=== PATIENT | male | born 1960 | race Caucasian/White ===

== ENCOUNTER 2024-01-01 10:22 | Outpatient (CLI) | payer OTHER, SELFPAY | END 2024-01-01 10:23 | disposition home or self-care (01) | LOC: INJ CL 10:26 | PROVIDERS: PCP Family Medicine; Visit Provider Family Medicine | DX: M54.16 Radiculopathy, lumbar region (principal); M51.36 Other intervertebral disc degeneration, lumbar region | CPT/HCPCS: 62323; J0702; Q9966 ==

== ENCOUNTER 2024-05-03 16:54 | Emergency (ER) | payer OTHER, SELFPAY ==
[2024-05-03 17:06] VITALS: BP 112/74; PULSE 88; RESP 20; TEMP 36.2; O2SAT 90; BMI 43.0
--- NOTE | 2024-05-03 18:26 | ED_ITS ---
HPI - Skin/Abscess/Foreign Bdy General Date Seen: 05/03/24 Chief complaint: Skin/Abscess/Foreign Body Stated complaint: R leg injury Time Seen by Provider: 05/03/24 17:31 Source: patient, family, RN notes reviewed and old records reviewed Mode of arrival: ambulatory Limitations: no limitations History of Present Illness HPI narrative: Mr. Hickey is a very pleasant 63-year-old gentleman with a history of diabetes both oral medication and insulin controlled, hypertension, peripheral neuropathy who comes to the emergency room for evaluation regarding wound on his right ankle. Mr. Myers states that of month ago he hit the back of his lower leg/Achilles area on the furniture as he was standing up. His has been monitoring it and covering it and today when they took the bandage off there was a distinct rectangular area of erythema that follow the outside of the bandage. He has not been experiencing any fever or chills. He does note that his blood sugars have been going up and this often happens when he has an infection. No history of DVT and he denies calf pain. There has been some light drainage from this wound. It has not been healing. Jokingly, I believe, Mr. Hickey states he lets the dog's licked his wounds. Patient denies a history of MRSA. Related Data Home Medications ?Medication ?Instructions ?Recorded ?Confirmed amitriptyline 10 mg tablet 20 mg PO QPM 06/28/23 08/02/23 amlodipine 10 mg tablet 10 mg PO DAILY 06/28/23 05/03/24 duloxetine 60 mg capsule,delayed 60 mg PO DAILY 06/28/23 05/03/24 release finasteride 5 mg tablet 5 mg PO 06/28/23 08/02/23 gabapentin 100 mg capsule mg PO 06/28/23 08/02/23 gabapentin 300 mg capsule 300 mg PO 06/28/23 08/02/23 insulin aspart 8 unit subcut BID 06/28/23 05/03/24 (niacinamide)(U-100) 100 unit/mL(3 mL) subcutaneous pen (Fiasp FlexTouch U-100 Insulin) insulin glargine 100 unit/mL (3 unit subcut 06/28/23 08/02/23 mL) subcutaneous pen (Lantus Solostar U-100 Insulin) lisinopril 10 1 tab PO DAILY 06/28/23 05/03/24 mg-hydrochlorothiazide 12.5 mg tablet meloxicam 7.5 mg tablet 7.5 mg PO DAILY 06/28/23 05/03/24 metformin 500 mg tablet 1,000 mg PO BID 06/28/23 05/03/24 methocarbamol 750 mg tablet 750 mg PO BID 06/28/23 05/03/24 oxycodone 5 mg tablet 5 mg PO 06/28/23 08/02/23 pen needle, diabetic 31 gauge x #1,200 ea 06/28/23 08/02/23 5/16 (UltiCare Pen Needle) rosuvastatin 5 mg tablet 5 mg PO DAILY 06/28/23 05/03/24 carvedilol 25 mg tablet 50 mg PO BID 05/03/24 05/03/24 furosemide 20 mg tablet 20 mg PO QAM 05/03/24 05/03/24 tamsulosin 0.4 mg capsule 0.4 mg PO DAILY 05/03/24 05/03/24 Allergies Allergy/AdvReac Type Severity Reaction Status Date / Time No Known Drug Allergies Allergy Verified 01/01/24 10:57 Review of Systems Status of ROS: Reports: 6 or more systems reviewed and unremarkable except as noted in History and below Exam Narrative: Exam Narrative: Patient is alert and oriented. No acute distress. No tachypnea. Examination of the lower extremities show bilateral 1+ edema. Multiple areas of scarring scabs in various stages of healing noted. On the back of the right leg at the lower aspect of the Achilles is a nickel shaped area of increased erythema with central losing measuring approximately 4 mm. There is some erythema at reporting developer extending from this and a perfectly shaped rectangle outline with obvious deep erythema. No this is not significantly warm to the touch. There is no calf tenderness. Const: Vital Signs, click to edit/add: Vital Signs - 24 hr 05/03/24 17:06 Temperature 97.2 F L Pulse Rate [Right Pulse Oximeter] 88 Respiratory Rate 20 Blood Pressure [Ri ght Upper Arm] 112/74 Pulse Oximetry 90 Oxygen Delivery Me thod Room Air Documenting provider has reviewed patient's vital signs: yes Course Course ED Course: This time patient appears to have a mild cellulitis with surrounding area of irritation from the bandage. Will obtain wound culture. Vital Signs Vital signs: Initial Vital Signs Temperature 97.2 F L 05/03/24 17:06 Temperature Source Temporal Artery Scan 05/03/24 17:06 Pulse Rate 88 05/03/24 17:06 Respiratory Rate 20 05/03/24 17:06 Blood Pressure 112/74 05/03/24 17:06 Blood Pressure Mean 86 05/03/24 17:06 Blood Pressure Position Sitting 05/03/24 17:06 Pulse Oximetry 90 05/03/24 17:06 Oxygen Delivery Method Room Air 05/03/24 17:06 Vital Signs Temperature 97.2 F L 05/03/24 17:06 Pulse Rate 88 05/03/24 17:06 Respiratory Rate 20 05/03/24 17:06 Blood Pressure 112/74 05/03/24 17:06 Pulse Oximetry 90 05/03/24 17:06 Oxygen Delivery Method Room Air 05/03/24 17:06 Temperature 97.2 F L 05/03/24 17:06 Pulse Rate 88 05/03/24 17:06 Respiratory Rate 20 05/03/24 17:06 Blood Pressure 112/74 05/03/24 17:06 Pulse Oximetry 90 05/03/24 17:06 Oxygen Delivery Method Room Air 05/03/24 17:06 MDM - Skin/Abscess/Foreign Bdy MDM Narrative Medical decision making narrative: 1. Cellulitis-this is a poorly healing wound for the past month. I do see increased erythema. I would recommend treatment with an antibiotic. We will use doxycycline 100 mg p.o. b.i.d. x7 days while we are awaiting the culture. Recommend seeking medical attention for fever, vomiting, any worsening symptoms. 2. Contact dermatitis-she clearly we have the perfect outline of the edge of the bandage. At this time recommend against used of any adhesive. We will use Kerlix and Coban to hold it in place. I think this occurred because the skin is so much more sensitive with the ongoing infection. 3. Hyper glycemia-per patient report. His blood sugar has been in the 200s. He may need to increase his p.r.n. or immediate release insulin. He states he has a follow-up appointment on SundayMay 05 with his primary. 4. Disposition-home at this time. Return for worsening symptoms especially fever, vomiting, increasing redness and as needed. Medical Records Attestation: I reviewed the patient's medical records. Discharge Plan Discharge Clinical Impression: Cellulitis, Contact dermatitis Patient Disposition: Home, Self-Care Condition: Unchanged Additional Instructions: Avoid any adhesive on the skin. Cover with telfa and wrapping with gauze or kerlix to hold in place may be helpful. Keep this area clean. Monitor for worsening symptoms. Seek medical attention for fever, vomiting or increase in redness and as needed. Doxycycline is an antibiotic and will be used to treat this area. Prescriptions: No Action metformin 500 mg tablet 1,000 mg PO BID methocarbamol 750 mg tablet 750 mg PO BID duloxetine 60 mg capsule,delayed release(DR/EC) 60 mg PO DAILY oxycodone 5 mg tablet 5 mg PO amitriptyline 10 mg tablet 20 mg PO QPM Fiasp FlexTouch U-100 Insulin 100 unit/mL (3 mL) insulin pen 8 unit subcut BID insulin glargine [Lantus Solostar U-100 Insulin] 100 unit/mL (3 mL) insulin pen subcut lisinopril-hydrochlorothiazide 10-12.5 mg tablet 1 tab PO DAILY finasteride 5 mg tablet 5 mg PO amlodipine 10 mg tablet 10 mg PO DAILY (DME) pen needle, diabetic [UltiCare Pen Needle] 31 gauge x 5/16 needle See Rx Instructions .ROUTE DIRECTED Qty: 1200 Rx Instructions: As directed gabapentin 300 mg capsule 300 mg PO rosuvastatin 5 mg tablet 5 mg PO DAILY gabapentin 100 mg capsule PO meloxicam 7.5 mg tablet 7.5 mg PO DAILY carvedilol 25 mg tablet 50 mg PO BID furosemide 20 mg tablet 20 mg PO QAM tamsulosin 0.4 mg capsule 0.4 mg PO DAILY Follow Up/Referrals: Caryl Shi DO [Primary Care Provider] - Stand Alone [facility] Inst[facility]
== END 2024-05-03 17:52 | disposition home or self-care (01) ==
LOC: ED 17:39
PROVIDERS: Emergency Provider Family Medicine; PCP Family Medicine
DX: L03.115 Cellulitis of right lower limb (principal); L24.5 Irritant contact dermatitis due to other chemical products; W22.8XXA Striking against or struck by other objects, initial encounter
CPT/HCPCS: 87070; 87186; 99283

== ENCOUNTER 2024-05-19 02:26 | Emergency (ER) | payer OTHER, SELFPAY ==
[2024-05-19 02:37] VITALS: BP 140/78; PULSE 75; RESP 16; TEMP 35.9; O2SAT 93; BMI 43.0
--- NOTE | 2024-05-19 03:10 | ED_ITS ---
HPI - General Adult General Date Seen: 05/19/24 Chief complaint: Abdominal Pain Stated complaint: Abdominal Pain Time Seen by Provider: 05/19/24 02:45 Source: patient, EMS, RN notes reviewed and old records reviewed Mode of arrival: EMS Limitations: no limitations History of Present Illness HPI narrative: Patient is a 63-year-old male here for abdominal pain, rectal pain and inability to have a bowel movement. He says he takes oxycodone chronically for back pain, he has not been able have a bowel movement for 4 5 days and is having an of rectal pain now that he is not able to sit so he called the ambulance tonight. He also says tonight he has not been able to urinate, he prefers to urinate every hour so and says it has been about 6 hours. He has not had nausea or vomiting. He does complain of his chronic back pain, was given fentanyl in the ambulance but says it has not helped, request additional pain medication. He has not had fevers or bloody stools, did try an enema at home and since then he has had some liquid drainage. Related Data Home Medications ?Medication ?Instructions ?Recorded ?Confirmed amitriptyline 10 mg tablet 20 mg PO QPM 06/28/23 08/02/23 amlodipine 10 mg tablet 10 mg PO DAILY 06/28/23 05/03/24 duloxetine 60 mg capsule,delayed 60 mg PO DAILY 06/28/23 05/03/24 release finasteride 5 mg tablet 5 mg PO 06/28/23 08/02/23 gabapentin 100 mg capsule mg PO 06/28/23 08/02/23 gabapentin 300 mg capsule 300 mg PO 06/28/23 08/02/23 insulin aspart 8 unit subcut BID 06/28/23 05/03/24 (niacinamide)(U-100) 100 unit/mL(3 mL) subcutaneous pen (Fiasp FlexTouch U-100 Insulin) insulin glargine 100 unit/mL (3 unit subcut 06/28/23 08/02/23 mL) subcutaneous pen (Lantus Solostar U-100 Insulin) lisinopril 10 1 tab PO DAILY 06/28/23 05/03/24 mg-hydrochlorothiazide 12.5 mg tablet meloxicam 7.5 mg tablet 7.5 mg PO DAILY 06/28/23 05/03/24 metformin 500 mg tablet 1,000 mg PO BID 06/28/23 05/03/24 methocarbamol 750 mg tablet 750 mg PO BID 06/28/23 05/03/24 oxycodone 5 mg tablet 5 mg PO 06/28/23 08/02/23 pen needle, diabetic 31 gauge x #1,200 ea 06/28/23 08/02/23 5/16 (UltiCare Pen Needle) rosuvastatin 5 mg tablet 5 mg PO DAILY 06/28/23 05/03/24 carvedilol 25 mg tablet 50 mg PO BID 05/03/24 05/03/24 furosemide 20 mg tablet 20 mg PO QAM 05/03/24 05/03/24 tamsulosin 0.4 mg capsule 0.4 mg PO DAILY 05/03/24 05/03/24 Allergies Allergy/AdvReac Type Severity Reaction Status Date / Time No Known Drug Allergies Allergy Verified 01/01/24 10:57 Review of Systems Status of ROS: Reports: 10 or more systems reviewed and unremarkable except as noted in History and below [facility] Social History Non-prescribed substance use: denies use Exam Narrative: Exam Narrative: Vital signs as noted above. In general, an alert, nontoxic elderly male, lying on his left side. He is significantly overweight. Head: Normocephalic, atraumatic. Eyes: Pupils are equal reactive. Extraocular movements are full. Conjunctivae are normal. ENT: Mucous membranes are moist. Neck: Supple without lymphadenopathy. Heart: Regular rate and rhythm. No murmur or rub. Lungs: Clear bilaterally. No increased work of breathing, crackles or wheezes. Abdomen: Obese, soft, nontender. Rectal exam: Impacted stool in the rectum. Extremities: Well perfused. Pulses intact. Neurologic: Patient is alert and oriented to person and place. Speech is fluent. Face is symmetric. Moves all extremities equally. Affect: Normal. Skin: Warm and dry. Well perfused. Const: Vital Signs, click to edit/add: Vital Signs - 24 hr 05/19/24 02:37 Temperature 96.7 F L Pulse Rate [Pulse Oximeter] 75 Respiratory Rate 16 Blood Pressure [Ri ght Upper Arm] 140/78 H Pulse Oximetry 93 Oxygen Delivery Me thod Room Air Documenting provider has reviewed patient's vital signs: yes Course Course ED Course: Will give an additional 4 mg from morphine here, will try pink lady enema, consider disimpaction if that is not successful. Will also straight cath to relieve his urinary retention which is likely related to his fecal impaction. Patient complained of his chronic back pain most consistently while here, requested additional pain medication, was given 4 mg of morphine in said this did not do anything was given additional 4 mg. He does take oxycodone chronically for this. With reference to his fecal impaction, he responded well to an enema here with large stool volume output. He says from that standpoint he is feeling improved. He also had a 1000 mL of urine out of his bladder. His abdominal exam is benign, nontender to palpation. I think it is reasonable to let him go home which is what he would prefer at this time. We talked about increasing his MiraLax to help with continuing to clean out his colon. He understands that the oxycodone is likely the contributing culprit in terms of his constipation. If he has worsening abdominal pain, vomiting, fevers, bloody stools etcetera return any time to the emergency department. He is comfortable with this plan. Vital Signs Vital signs: Initial Vital Signs Temperature 96.7 F L 05/19/24 02:37 Temperature Source Temporal Artery Scan 05/19/24 02:37 Pulse Rate 75 05/19/24 02:37 Respiratory Rate 16 05/19/24 02:37 Blood Pressure 140/78 H 05/19/24 02:37 Blood Pressure Mean 98 05/19/24 02:37 Blood Pressure Position Left Lateral 05/19/24 02:37 Pulse Oximetry 93 05/19/24 02:37 Oxygen Delivery Method Room Air 05/19/24 02:37 Vital Signs Temperature 96.7 F L 05/19/24 02:37 Pulse Rate 75 05/19/24 02:37 Respiratory Rate 16 05/19/24 02:37 Blood Pressure 140/78 H 05/19/24 02:37 Pulse Oximetry 93 05/19/24 02:37 Oxygen Delivery Method Room Air 05/19/24 02:37 Temperature 96.7 F L 05/19/24 02:37 Pulse Rate 75 05/19/24 02:37 Respiratory Rate 16 08/26/24 02:37 Blood Pressure 140/78 H 05/19/24 02:37 Pulse Oximetry 93 05/19/24 02:37 Oxygen Delivery Method Room Air 05/19/24 02:37 Medications Administered Medications: Discontinued Medications Generic Name Dose Route Start Last Admin Trade Name Tay PRN Reason Stop Dose Admin Morphine Sulfate 4 mg 05/19/24 03:05 05/19/24 03:26 Morphine 4 Mg/Ml Inj IVP 05/19/24 03:06 4 mg ONCE ONE Administration Morphine Sulfate 4 mg 05/19/24 04:25 05/19/24 05:17 Morphine 4 Mg/Ml Inj IVP 05/19/24 04:26 4 mg ONCE ONE Administration Non-Formulary Medication 375 each 05/19/24 03:58 05/19/24 04:01 Non-Formulary Medication ID 05/19/24 03:59 375 each ONCE ONE Administration Discharge Plan Discharge Clinical Impression: Fecal impaction Patient Disposition: Home, Self-Care Condition: Improved Instructions: Fecal Impaction (ED) Additional Instructions: I would recommend increasing your MiraLax to a point where you are having bowel movements easily without having diarrhea. If you have worsening abdominal pain, fevers, vomiting, or other significant changes, return any time. See your doctor if not improving over the next few days. Prescriptions: No Action metformin 500 mg tablet 1,000 mg PO BID methocarbamol 750 mg tablet 750 mg PO BID duloxetine 60 mg capsule,delayed release(DR/EC) 60 mg PO DAILY oxycodone 5 mg tablet 5 mg PO amitriptyline 10 mg tablet 20 mg PO QPM Fiasp FlexTouch U-100 Insulin 100 unit/mL (3 mL) insulin pen 8 unit subcut BID insulin glargine [Lantus Solostar U-100 Insulin] 100 unit/mL (3 mL) insulin pen subcut lisinopril-hydrochlorothiazide 10-12.5 mg tablet 1 tab PO DAILY finasteride 5 mg tablet 5 mg PO amlodipine 10 mg tablet 10 mg PO DAILY (DME) pen needle, diabetic [UltiCare Pen Needle] 31 gauge x 5/16 needle See Rx Instructions .ROUTE DIRECTED Qty: 1200 Rx Instructions: As directed gabapentin 300 mg capsule 300 mg PO rosuvastatin 5 mg tablet 5 mg PO DAILY gabapentin 100 mg capsule PO meloxicam 7.5 mg tablet 7.5 mg PO DAILY carvedilol 25 mg tablet 50 mg PO BID furosemide 20 mg tablet 20 mg PO QAM tamsulosin 0.4 mg capsule 0.4 mg PO DAILY Follow Up/Referrals: Caryl Shi DO [Primary Care Provider] - Stand Alone Forms: [facility] Info Instructions
[2024-05-19] MEDS: MORPHINE 4 MG/ML INJ IVP ×2 (03:26→05:17)
[2024-05-19] MEDS: NON-FORMULARY MEDICATION 375 EACH PR (04:01)
--- OUTSIDE RECORDS SUMMARY | 2024-05-19 05:36 | XMS_ITS | Referral Summary ---
Author Organization [facility] Address [address] [place] [address] Care Team Providers Care Yoker Name Role Phone Shar Hoff MD Unavailable [phone] Doctor, No Primary Care Provider Unavailabl e Allergies No known active allergies Medications Medication Sig Dispensed Refills Start Date End Date Status Fish Oil (FISH OIL) 340-1,000 mg oral capsule Take 1,000 mg by mouth once daily. Active multivitamin (CERTAVITE) 18-400 mg-mcg oral tablet Take 1 tablet by mouth once daily. Active omeprazole (PRILOSEC) 20 mg oral delayed release capsule Take 20 mg by mouth once daily. Active amLODIPine (NORVASC) 10 mg oral tablet Take 10 mg by mouth once daily. Active carvedilol (COREG) 25 mg oral tablet Take 25 mg by mouth Twice a Day. Active polyethylene glycol (MIRALAX) 17 gram oral packet Take 17 g by mouth once daily. Mix each dose in 4-8 ounces of liquid as directed. Active Benazepril (LOTENSIN) 40 mg oral tablet Take 40 mg by mouth once daily. Active gabapentin (NEURONTIN) 300 mg oral capsule Take 300 mg by mouth three times a day. Active glipiZIDE (GLUCOTROL XL) 10 mg oral extended release tablet 24 HR Take 10 mg by mouth every morning before breakfast. Active insulin glargine (LANTUS) 100 unit/mL SubQ vial Inject under the skin at bedtime. Active metFORMIN (GLUCOPHAGE) 500 mg oral tablet Take 500 mg by mouth twice a day with breakfast and dinner. Active oxyCODONE, immediate release, (ROXICODONE) 5 mg oral tablet Take 5 mg by mouth every 6 (six) hours as needed. Active spironolactone (ALDACTONE) 50 mg oral tablet Take 50 mg by mouth once daily. Active tamsulosin (FLOMAX) 0.4 mg oral capsule Take 0.4 mg by mouth once daily. Active traZODone (DESYREL) 100 mg oral tablet Take 100 mg by mouth at bedtime as needed for sleep. Active venlafaxine ER (EFFEXOR XR) 150 mg oral extended release capsule 24 HR Take 150 mg by mouth once daily. Active venlafaxine ER (EFFEXOR XR) 75 mg oral extended release capsule 24 HR Take 75 mg by mouth once daily. 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 Social History Tobacco Use Types Packs/Day Years Used Date Smoking Tobacco: Former Smokeless Tobacco: Current Comments:using e- cig Alcohol Use Standard Drinks/Week Comments Yes 0 (1 standard drink = 0.6 oz pur e alcohol) Sex and Gender Information Value Date Recorded Sex Assigned at Not on file Gender Identity Not on file Sexual Orientation Not on file Last Filed Vital Signs Vital Sign Reading Time Taken Comments Blood Pressure 134/95 07/18/2021 4:16 PM CDT Pulse 68 07/18/2021 4:16 PM CDT Temperature 36.2 ??C (97.1 ??F) 07/18/2021 4:00 PM CD T Respiratory Rate 15 07/18/2021 4:16 PM CDT Oxygen Saturation 96% 07/18/2021 4:16 PM CDT Inhaled Oxygen Concentration - - Weight 147.4 kg (325 lb) 07/12/2021 10:57 AM CDT Height 188 cm (6' 2) 07/12/2021 10:57 AM CDT Body Mass Index 41.73 07/12/2021 10:57 AM CDT Plan of Treatment Not on file Procedures Procedure Name Priority Date/Time Associated Diagnosis Comments BASIC METAB PROFILE STAT 07/19/2016 4 :45 AM CDT from Last 3 Months or Most Recently Relevant to Health Maintenance Results * (ABNORMAL) Basic Metabolic Profile (07/19/2016 4:45 AM CDT) Sodium 140 136 - 145 mMol/L 07/19/2016 5:16 AM T [facility] Potassium 4.0 3.5 - 5.1 mMol/L 07/19/2016 5:16 AM [facility] Chloride 104 98 - 112 mMol/L 07/19/2016 5:16 AM [facility] Carbon Dioxide 25 21 - 32 mMol/L 07/19/2016 5:16 AM [facility] BUN (Urea Nitro) 17 7 - 24 mg/dL 07/19/2016 5:16 AM [facility] Creatinine 0.83 0.70 - 1.30 mg/dL 07/19/2016 5:16 AM [facility] Est GFR (CKD-EPI) >60 >60 mL/min 07/19/2016 5:16 AM [facility] EST GFR IF AM >60 >60 mL/min 07/19/2016 5:16 AM [facility] Glucose 99 74 - 106 mg/dL 07/19/2016 5:16 AM [facility] Calcium, Serum 8.4(L) 8.5 - 10.1 mg/dL 07/19/2016 5:16 AM [facility] Anion Gap 11.0 0.0 - 15.0 mMol/L 07/19/2016 5:16 AM [facility] Blood 07/19/2016 4:45 AM CDT 07/19/2016 4:48 AM CDT Brigette Pena MD CHEMISTRY ORDERABLE [facility] [address] [address] from Last 3 Months or Most Recently Relevant to Health Maintenance Advance Directives For more information, please contact: [phone] * Full Code (Latest Code Status on File) Date Activated Date Inactivated Comments 07/19/2016 6:14 AM 07/19/2016 4:02 PM Question Answer Comments How was code status determined? Patient Care Teams Yoker Relationship Specialty Start Date End Date Doctor, No No ad PCP - General Radiology 01/01/23 Shar Hoff MD [address] [place] [address] [address] [place] [address] Neurology 01/01/23
--- OUTSIDE RECORDS SUMMARY | 2024-05-19 05:36 | XMS_ITS | Clinical Summary ---
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 Family History Medical History Relation Comments No Known Problems Father No Known Problems Mother Relation Status Comments Father Mother Social History Tobacco Use Types Packs/Day Years [...] 07/12/2021 10:57 AM CDT Plan of Treatment Health Maintenance Due Date Last Done Comments AAA Ultrasound Screening 1958 Colonoscopy 1960 Eye Exam 1958 Hepatitis C Screening 1958 Depression Assessment (PHQ-2) 1959 Pneumococcal 65+ (1 of 2 - PCV) 1964 RSV 60+ Yrs (1 - 1-dose 60+ series) 2018 HgbA1C 07/14/2021 04/13/2021 Yearly Review of HCD 07/11/2022 07/11/2021, 03/29/2021, 02/02/2021 COVID-19 Vaccine (1 - 2022-2 4 season) 2023 Medicare Wellness Visit 06/28/2023 06/28/2022 Creatinine 04/25/2024 04/25/2023, 08/0 10/2022, 04/22/2022, Additional history exists Influenza Vaccine (#1) 2024 08/04/2003 Adult Tetanus Booster 07/19/2026 07/19/2016, 010 Zoster Vaccine Completed 12/25/2022, 10/23/2022 Procedures Procedure Name Priority Date/Time Associated Diagnosis Comments BASIC METAB PROFILE STAT 07/19/2016 4 :45 AM CDT from Last 3 Months or Most Recently Relevant to Health Maintenance Results * (ABNORMAL) Basic Metabolic Profile (07/19/2016 4:45 AM CDT) Sodium 140 136 - 145 mMol/L 07/19/2016 5:16 AM CDT [facility] Potassium 4.0 3.5 - 5.1 mMol/L 07/19/2016 5:16 AM CDT [facility] Chloride 104 98 - 112 mMol/L 07/19/2016 5:16 AM T [facility] Carbon Dioxide 25 21 - 32 mMol/L 07/19/2016 5:16 AM T [facility] BUN (Urea Nitro) 17 7 - 24 mg/dL 07/19/2016 5:16 AM CDT [facility] Creatinine 0.83 0.70 - 1.30 mg/dL 07/19/2016 5:16 AM CDT [facility] Est GFR (CKD-EPI) >60 >60 mL/min 07/19/2016 5:16 AM CDT [facility] EST GFR IF AM >60 >60 mL/min 07/19/2016 5:16 AM CDT [facility] Glucose 99 74 - 106 mg/dL 07/19/2016 5:16 AM CDT [facility] Calcium, Serum 8.4(L) 8.5 - 10.1 mg/dL 07/19/2016 5:16 AM CDT [facility] Anion Gap 11.0 0.0 - 15.0 mMol/L 07/19/2016 5:16 AM CDT [facility] Blood 07/19/2016 4:45 AM CDT 07/19/2016 4:48 AM CDT Brigette Pena MD CHEMISTRY ORDERABLE [facility] [address] [address] from Last 3 Months or Most Recently Relevant to Health Maintenance Advance Directives For more information, please contact: [phone] * Full Code (Latest Code Status on File) Date Activated Date Inactivated Comments 07/19/2016 6:14 AM 07/19/2016 4:02 PM Question Answer Comments How was code status determined? Patient Care Teams Building Custodial Supervisor Relationship Specialty Start Date End Date Doctor, No No ad PCP - General Radiology 01/01/23 Shar Hoff MD [address] [place] [address] [address] [place], [place] [address] Neurology 01/01/23
--- OUTSIDE RECORDS SUMMARY | 2024-05-19 05:37 | XMS_ITS | Encounter Summary ---
Author Organization [facility] Address [address] [place] [address]. [place] [address] Care Team Providers Care Director On Air Name Role Phone Maya Goyal MD Primary Care Provider Maya Goyal MD Unavailable Erlin Delcid MD Unavailable [phone] Mehdi Bass DPM Unavailable Kae Whipple [facility] Unavailable Maya Goyal MD Unavailable No Ref-Primary, Physician Primary Care Provider Mehdi Bass DPM Unavailable [facility] [place] [place] Unavailable Reason for Visit * Reason Onset Date Comments MyChart Communication 11/09/2021 Encounter Details Date Type Department Care Team (Late st Contact Info) Description 11/09/2021 MyC Medical Advice M [facility] [address] [place] [address] Maya Goyal MD [address] [place] [address] MyChart Communication Social History Tobacco Use Types Packs/Day Years Used Date Smoking Tobacco: Former Cigarettes 0.5 20 0 03/18/1999 - 03/18/2019 Smokeless Tobacco: Never Comments:using e-cigarette Alcohol Use Standard Drinks/Week Comments Yes 0 (1 standard drink = 0.6 oz pure alcohol) No alcohol since 08/31/2018 - Currently in program PHQ-2 Answer Date Recorded PHQ-2 Score 0 05/16/2021 Sex and Gender Information Value Date Recorded Sex Assigned at Male 09/17/2018 5:00 PM NIGHT CLERK Gender Identity Male 09/17/2018 5:00 PM NIGHT CLERK Sexual Orientation Straight 09/17/2018 5: 00 PM NIGHT CLERK COVID-19 Exposure Response Date Recorded In the last month, have you been in contact with someone who was confirmed or suspected to have Coronavirus / COVID-19? No / Unsure 11/10/2021 9:52 AM NIGHT CLERK documented as of this encounter Miscellaneous Notes * Telephone Encounter - Rukhsana Bowden RN - 11/09/2021 12:58 PM NIGHT CLERK See [employer] message. Sent his refill request encounter to Dr Goyal. T CLERK documented in this encounter Plan of Treatment Not on file documented as of this encounter Visit Diagnoses Not on filedocumented in this encounter Additional Health Concerns Assessment Noted Time PHQ-9 Depression Total Score: 10 021 2:58 PM CDT documented as of this encounter Care Teams Director On Air Relationship Specialty Start Date End Date Maya Goyal MD [address] [place] [address] PCP - General 05/03/04 11/14/22 No Ref-Primary, Physician PCP - General 11/15/22 Maya Goyal MD [address] [place] [address] Assigned PCP 06/27/12 10/17/23 Erlin Delcid MD [address] [address] Assigned Surgical Provider 09/12/20 Mehdi Bass DPM [id number] [place] [address] [address] [place] [address] Assigned Musculoskeletal Provider 08/14/21 10/27/22 Kae Whipple [facility] [address] [place] [address] Assigned MTM Pharmacist 03/18/22 Maya Goyal MD [address] [facility] [address] [place] [address] Assigned Pain Medication Provider 10/02/22 03/23/23 Mehdi Bass DPM [id number] [place] [address] [address] [place] [address] Assigned Surgical Provider 10/28/22 [facility] [place] [address] [place] [address] Assigned PCP 10/18/23 documented as of this encounter
--- OUTSIDE RECORDS SUMMARY | 2024-05-19 05:37 | XMS_ITS | Encounter Summary ---
Author Organization [facility] Address [address] [place] [address] Care Team Providers Care Road Train Driver Name Role Phone Maya Goyal MD Primary Care Provider [phone] Maya Goyal MD Unavailable Mehdi Sen MD Unavailable [phone] Erlin Delcid MD Unavailable [phone] Elicia Bedoya [facility] Unavailable Kae Whipple [facility] Unavailable [phone] Mehdi Bass DPM Unavailable [phone] Kae Whipple [facility] Unavailable Maya Goyal MD Unavailable No Ref-Primary, Physician Primary Care Provider Mehdi Bass DPM Unavailable [phone] [facility] Unavailable Reason for Visit * Reason Comments Medication Refill Encounter Details Date Type Department Care Team (Late st Contact Info) Description 10/25/2020 [facility] [address] [place] [address] Maya Goyal MD [address] [place] [address] Medication Refill Social History Tobacco Use Types Packs/Day Years Used Date Smoking Tobacco: Former Cigarettes 0.5 20 0 03/18/1999 - 03/18/2019 Smokeless Tobacco: Never Comments:using e-cigarette Alcohol Use Standard Drinks/Week Comments Yes 0 (1 standard drink = 0.6 oz pure alcohol) No alcohol since 08/31/2018 - Currently in program PHQ-2 Answer Date Recorded PHQ-2 Score 2 09/07/2020 Sex and Gender Information Value Date Recorded Sex Assigned at Male 09/17/2018 5:00 PM [employer] Gender Identity Male 09/17/2018 5:00 PM [employer] Sexual Orientation Straight 09/17/2018 5: 00 PM [employer] COVID-19 Exposure Response Date Recorded In the last month, have you been in contact with someone who was confirmed or suspected to have Coronavirus / COVID-19? No / Unsure 10/21/2020 10:08 AM [employer] documented as of this encounter Miscellaneous Notes * Telephone Encounter - Susan Kohler RN - 10/26/2020 11:53 AM [employer] Patient has refills remaining with requesting pharmacy. Susan Cancino - Registered Nurse [facility] [employer] documented in this encounter Plan of Treatment Not on file documented as of this encounter Visit Diagnoses Diagnosis Type 2 diabetes mellitus with stage 1 chronic kidney disease, without long-term current use of insulin (H) documented in this encounter Additional Health Concerns Assessment Noted Time PHQ-9 Depression Total Score: 10 020 8:55 AM CDT documented as of this encounter Care Teams Road Train Driver Relationship Specialty Start Date End Date Maya Goyal MD [address] [place] [address] PCP - General 05/03/04 11/14/22 No Ref-Primary, Physician PCP - General 11/15/22 Maya Goyal MD [address] [place] [address] Assigned PCP 06/27/12 10/17/23 Mehdi Sen MD [address] [place] [address] Assigned Musculoskeletal Provider 07/16/20 12/18/20 Erlin Delcid MD [address] [address] Assigned Surgical Provider 09/12/20 Elicia Bedoya [facility] [address] [place] [address] [address] [place] [address] Pharmacist Pharmacist 11/09/20 12/06/20 Kae Whipple [facility] [address] [place] [address] Pharmacist Pharmacist 11/30/20 12/06/20 [place] [id number] [place] [address] Assigned Musculoskeletal Provider 08/14/21 10/27/22 Kae Whipple [facility] [address] [place] [address] Assigned MTM Pharmacist 03/18/22 Maya Goyal MD [address] [facility] [address] [place] [address] Assigned Pain Medication Provider 10/02/22 03/23/23 Mehdi Bass DPM [id number] [place] [address] Assigned Surgical Provider 10/28/[address] [address] Assigned PCP 10/18/23 documented as of this encounter
--- OUTSIDE RECORDS SUMMARY | 2024-05-19 05:37 | XMS_ITS | Encounter Summary ---
Author Organization [place] Address [address] [place] [address]. [place] [address] Care Team Providers Care Vba Developer Name Role Phone Maya Goyal MD Primary Care Provider Maya Goyal MD Unavailable Erlin Delcid MD Unavailable Mehdi Bass DPM Unavailable Kae Whipple [facility] Unavailable Maya Goyal MD Unavailable No Ref-Primary, Physician Primary Care Provider Mehdi Bass DPM Unavailable [phone] [facility] Unavailable Reason for Visit * Reason Comments Medication Refill Encounter Details Date Type Department Care Team (Late st Contact Info) Description 06/25/2021 [facility] [address] [place] [address] Maya Goyal MD [address] [place] [address] Medication Refill Social History Tobacco [...] Sex Assigned at Male 09/17/2018 5:00 PM FACTORY ASSEMBLER Gender Identity Male 09/17/2018 5:00 PM FACTORY ASSEMBLER Sexual Orientation Straight 09/17/2018 5: 00 PM FACTORY ASSEMBLER documented as of this encounter Miscellaneous Notes * Telephone Encounter - Celestino Latham RN - 06/27/2021 2:46 PM CDT Prescription approved per [facility] Refill Protocol. documented in this encounter Plan of Treatment Not on file documented as of this encounter Visit Diagnoses Diagnosis Moderate episode of recurrent major depressive disorder (H)- Primary documented in this encounter Additional Health Concerns Assessment Noted Time PHQ-9 Depression Total Score: 10 021 2:58 PM CDT documented as of this encounter Care Teams Vba Developer Relationship Specialty Start Date End Date aMya Goyal MD [address] [place] [address] PCP - General 05/03/04 11/14/22 No Ref-Primary, Physician PCP - General 11/15/22 Maya Goyal MD [address] [place] [address] Assigned PCP 06/27/12 10/17/23 Erlin Delcid MD [address] [facility] [address] [place] [address] Assigned Surgical Provider 09/12/20 Mehdi Bass DPM [id number] [facility] [address] [place] [address] Assigned Musculoskeletal Provider 08/14/21 10/27/22 Kae Whipple [facility] [address] [place] [address] Assigned MTM Pharmacist 03/18/22 Maya Goyal MD [address] [facility] 200 [place] [address] Assigned Pain Medication Provider 10/02/22 03/23/23 Mehdi Bass DPM [id number] [facility] [address] [place] [address] Assigned Surgical Provider 10/28/22 [facility] 303 [place] [address] Assigned PCP 10/18/23 documented as of this encounter
--- OUTSIDE RECORDS SUMMARY | 2024-05-19 05:37 | XMS_ITS | Encounter Summary ---
Author Organization [place] Address [address] [place] [address]. [place] [address] Care Team Providers Care Kennel Helper Name Role Phone Maya Goyal MD Primary Care Provider Maya Goyal MD Unavailable Erlin Delcid MD Unavailable Mehdi Bass DPM Unavailable Kae Whipple [facility] Unavailable Maya Goyal MD Unavailable No Ref-Primary, Physician Primary Care Provider Mehdi Bass DPM Unavailable [facility] Unavailable Reason for Visit * Reason Onset Date Comments Orders 09/04/2021 Encounter Details Date Type Department Care Team (Late st Contact Info) Description 09/04/2021 [facility] Medical Advice [facility] [address] [place] [address] Maya Goyal MD [address] [place] [address] Orders Social History Tobacco Use Types Packs/Day Years [...] Sex Assigned at Male 09/17/2018 5:00 PM AUTOMOBILE DAMAGE FIELD APPRAISER Gender Identity Male 09/17/2018 5:00 PM AUTOMOBILE DAMAGE FIELD APPRAISER Sexual Orientation Straight 09/17/2018 5: 00 PM AUTOMOBILE DAMAGE FIELD APPRAISER COVID-19 Exposure Response Date Recorded In the last month, have you been in contact with someone who was confirmed or suspected to have Coronavirus / COVID-19? No / Unsure 08/17/2021 12:57 PM AUTOMOBILE DAMAGE FIELD APPRAISER documented as of this encounter Miscellaneous Notes * Telephone Encounter - Rukhsana Bowden RN - 09/06/2021 10:08 AM AUTOMOBILE DAMAGE FIELD APPRAISER Sent [employer] message. MOBILE DAMAGE FIELD APPRAISER documented in this encounter Plan of Treatment Not on file documented as of this encounter Visit Diagnoses Not on filedocumented in this encounter Additional Health Concerns Assessment Noted Time PHQ-9 Depression Total Score: 10 021 2:58 PM CDT documented as of this encounter Care Teams Kennel Helper Relationship Specialty Start Date End Date Maya Goyal MD [address] [place] [address] PCP - General 05/03/04 11/14/22 No Ref-Primary, Physician PCP - General 11/15/22 Maya Goyal MD [address] [place] [address] Assigned PCP 06/27/12 10/17/23 Erlin Delcid MD [address] [address] Assigned Surgical Provider 09/12/20 Mehdi Bass DPM [address] [facility] [address] [place] [address] Assigned Musculoskeletal Provider 08/14/21 10/27/22 Kae Whipple [facility] [address] [place], [place] [address] Assigned MTM Pharmacist 03/18/22 Maya Goyal MD [address] [facility] [address] [place], [place] [address] Assigned Pain Medication Provider 10/02/22 03/23/23 Mehdi Bass DPM [address] [facility] [address] [place] [address] Assigned Surgical Provider 10/28/[address] [facility] 303 [place], [place] [address] Assigned PCP 10/18/23 documented as of this encounter
--- OUTSIDE RECORDS SUMMARY | 2024-05-19 05:37 | XMS_ITS | Encounter Summary ---
Author Organization [place] Address [address] [place] [address]. [place] [address] Care Team Providers Care Unit Reactor Operator Name Role Phone Maya Goyal MD Primary Care Provider Maya Goyal MD Unavailable Erlin Delcid MD Unavailable [phone] Mehdi Bass DPM Unavailable [phone] [facility] Unavailable [phone] Maya Goyal MD Unavailable No Ref-Primary, Physician Primary Care Provider Mehdi Bass DPM Unavailable [phone] [facility] Unavailable Encounter Details Date Type Department Care Team (Late st Contact Info) Description 09/06/2021 [facility] [address] [place] [address] Eden Lei, GAS MANAGER Social History Tobacco Use Types Packs/Day Years [...] Sex Assigned at Male 09/17/2018 5:00 PM INFECTION CONTROL MANAGER Gender Identity Male 09/17/2018 5:00 PM INFECTION CONTROL MANAGER Sexual Orientation Straight 09/17/2018 5: 00 PM INFECTION CONTROL MANAGER COVID-19 Exposure Response Date Recorded In the last month, have you been in contact with someone who was confirmed or suspected to have Coronavirus / COVID-19? No / Unsure 08/17/2021 12:57 PM INFECTION CONTROL MANAGER documented as of this encounter Plan of Treatment Not on file documented as of this encounter Visit Diagnoses Not on filedocumented in this encounter Additional Health Concerns Assessment Noted Time PHQ-9 Depression Total Score: 10 021 2:58 PM CDT documented as of this encounter Care Teams Unit Reactor Operator Relationship Specialty Start Date End Date Maya Goyal MD [address] [place] [address] PCP - General 05/03/04 11/14/22 No Ref-Primary, Physician PCP - General 11/15/22 Maya Goyal MD [address] [place] [address] Assigned PCP 06/27/12 10/17/23 Erlin Delcid MD [address] [facility] 500 [place] [address] Assigned Surgical Provider 09/12/20 Mehdi Bass DPM [address] [facility] [address] [place], [place] [address] Assigned Musculoskeletal Provider 08/14/21 10/27/[address] [facility] [address] [place] [address] Assigned MTM Pharmacist 03/18/22 Maya Goyal MD [address] [facility] 200 [place] [address] Assigned Pain Medication Provider 10/02/22 03/23/23 Mehdi Bass DPM [address] [facility] [address] [place] [address] Assigned Surgical Provider 10/28/22 [facility] 303 [place] [address] Assigned PCP 10/18/23 documented as of this encounter
--- OUTSIDE RECORDS SUMMARY | 2024-05-19 05:37 | XMS_ITS | Encounter Summary ---
Author Organization [place] Address [address] [place] [address]. [place] [address] Care Team Providers Care Manufacturing Engineer Name Role Phone Maya Goyal MD Primary Care Provider Maya Goyal MD Unavailable Erlin Delcid MD Unavailable Mehdi Bass DPM Unavailable Kae Whipple [facility] Unavailable Maya Goyal MD Unavailable No Ref-Primary, Physician Primary Care Provider Mehdi Bass DPM Unavailable [phone] [facility] Unavailable Reason for Visit * Reason Comments Medication Refill Encounter Details Date Type Department Care Team (Late st Contact Info) Description 09/25/2021 [facility] [address] [place] [address] Maya Goyal MD [address] [place] [address] Medication Refill Social History Tobacco [...] Sex Assigned at Male 09/17/2018 5:00 PM GUTTER MOUTH CUTTER Gender Identity Male 09/17/2018 5:00 PM GUTTER MOUTH CUTTER Sexual Orientation Straight 09/17/2018 5: 00 PM GUTTER MOUTH CUTTER documented as of this encounter Miscellaneous Notes * Telephone Encounter - Rukhsana Yo RN - 09/27/2021 3:57 PM CST Prescription approved per [facility] Refill Protocol. ER MOUTH CUTTER documented in this encounter Plan of Treatment Not on file documented as of this encounter Visit Diagnoses Diagnosis Type 2 diabetes mellitus with stage 1 chronic kidney disease, without long-term current use of insulin (H) documented in this encounter Additional Health Concerns Assessment Noted Time PHQ-9 Depression Total Score: 10 021 2:58 PM CDT documented as of this encounter Care Teams Manufacturing Engineer Relationship Specialty Start Date End Date Maya Goyal MD [address] [place] [address] PCP - General 05/03/04 11/14/22 No Ref-Primary, Physician PCP - General 11/15/22 Maya Goyal MD [address] [place] [address] Assigned PCP 06/27/12 10/17/23 Erlin Delcid MD [address] [address] Assigned Surgical Provider 09/12/20 Mehdi Bass DPM [address] [facility] [address] [place] [address] Assigned Musculoskeletal Provider 08/14/21 10/27/22 Kae Whipple [facility] 303 [place] [address] Assigned MTM Pharmacist 03/18/22 Maya Goyal MD [address] [facility] [address] [place] [address] Assigned Pain Medication Provider 10/02/22 03/23/23 Mehdi Bass DPM [address] [facility] [address] [place] [address] Assigned Surgical Provider 10/28/22 [facility] 303 [place] [address] Assigned PCP 10/18/23 documented as of this encounter
--- OUTSIDE RECORDS SUMMARY | 2024-05-19 05:37 | XMS_ITS | Encounter Summary ---
Author Organization [place] Address [address] [place] [address]. [place] [address] Care Team Providers Care Business Analytics Analyst Name Role Phone Maya Goyal MD Primary Care Provider [phone] Maya Goyal MD Unavailable Mehdi Sen MD Unavailable [phone] Erlin Delcid MD Unavailable Elicia Bedoya [facility] Unavailable Kae Whipple [facility] Unavailable [phone] Mehdi Bass DPM Unavailable [phone] Kae Whipple [facility] Unavailable [phone] Maya Goyal MD Unavailable No Ref-Primary, Physician Primary Care Provider Mehdi Bass DPM Unavailable [phone] [facility] Unavailable Encounter Details Date Type Department Care Team (Late st Contact Info) Description 11/01/2020 [facility] [address] [place] [address] Erlin Delcid MD [address] [place] [address] [place], [place] [address] Social History Tobacco Use Types Packs/Day Years [...] Sex Assigned at Male 09/17/2018 5:00 PM PROGRAM MANUFACTURING LEADER Gender Identity Male 09/17/2018 5:00 PM PROGRAM MANUFACTURING LEADER Sexual Orientation Straight 09/17/2018 5: 00 PM PROGRAM MANUFACTURING LEADER COVID-19 Exposure Response Date Recorded In the last month, have you been in contact with someone who was confirmed or suspected to have Coronavirus / COVID-19? No / Unsure 11/04/2020 1:14 PM PROGRAM MANUFACTURING LEADER documented as of this encounter Plan of Treatment Not on file documented as of this encounter Visit Diagnoses Not on filedocumented in this encounter Additional Health Concerns Assessment Noted Time PHQ-9 Depression Total Score: 10 020 8:55 AM CDT documented as of this encounter Care Teams Business Analytics Analyst Relationship Specialty Start Date End Date Maya Goyal MD [address] [place] [address] PCP - General 05/03/04 11/14/22 No Ref-Primary, Physician PCP - General 11/15/22 Maya Goyal MD [address] [place] [address] Assigned PCP 06/27/12 10/17/23 Mehdi Sen MD [address] [place] [address] Assigned Musculoskeletal Provider 07/16/20 12/18/20 Erlin Delcid MD [address] [place] [address] [place] [address] Assigned Surgical Provider 09/12/20 Elicia Bedoya [facility] [address] [facility] [address] [place] [address] Pharmacist Pharmacist 11/09/20 12/06/20 Kae Whipple [facility] 303 [place] [address] Pharmacist Pharmacist 11/30/20 12/06/20 Mehdi Bass DPM [address] [place] [address] [place] [address] Assigned Musculoskeletal Provider 08/14/21 10/27/22 Kae Whipple [facility] 303 [place] [address] Assigned MTM Pharmacist 03/18/22 Maya Goyal MD 303 [facility] 200 [place] [address] Assigned Pain Medication Provider 10/02/22 03/23/23 Mehdi Bass DPM [address] [place] [address] [address] [place] [address] Assigned Surgical Provider 10/28/22 [facility] 303 [place] [address] Assigned PCP 10/18/23 documented as of this encounter
--- OUTSIDE RECORDS SUMMARY | 2024-05-19 05:37 | XMS_ITS | Encounter Summary ---
Author Organization [place] Address [address] [place] [address]. [place] [address] Care Team Providers Care Nursing Educator Name Role Phone Maya Goyal MD Unavailable No Ref-Primary, Physician Primary Care Provider [facility] Unavailable Reason for Visit * Reason Comments Medication Refill Encounter Details Date Type Department Care Team (Late st Contact Info) Description 10/03/2023 [facility] [address] [place] [address] Maya Goyal MD [address] [place] [address] Medication Refill Social History Tobacco Use Types Packs/Day Years Used Date Smoking Tobacco: Former Cigarettes 0.5 20 0 03/18/1999 - 03/18/2019 Smokeless Tobacco: Never Comments:using e-cigarette Alcohol Use Standard Drinks/Week Comments Yes 0 (1 standard drink = 0.6 oz pure alcohol) No alcohol since 08/31/2018 - Currently in program PHQ-2 Answer Date Recorded PHQ-2 Score 0 05/16/2021 Adolescent Education Answer Date Record ed Getting School Help Needed Not on file 07/08 Sex and Gender Information Value Date Recorded Sex Assigned at Male 09/17/2018 5:00 PM JOURNEYMAN PIPE FITTER Gender Identity Male 09/17/2018 5:00 PM JOURNEYMAN PIPE FITTER Sexual Orientation Straight 09/17/2018 5: 00 PM JOURNEYMAN PIPE FITTER documented as of this encounter Miscellaneous Notes * Telephone Encounter - Rukhsana Bowden RN - 10/03/2023 1:53 PM JOURNEYMAN PIPE FITTER Pt going to [facility] now. Please deny med, will put notes in Rx. Catia Swift MD [address] [place] [address] NEYMAN PIPE FITTER documented in this encounter Plan of Treatment Not on file documented as of this encounter Visit Diagnoses Diagnosis Type 2 diabetes mellitus with stage 1 chronic kidney disease, without long-term current use of insulin (H) documented in this encounter Additional Health Concerns Assessment Noted Time PHQ-9 Depression Total Score: 10 05/16/ 021 2:58 PM CDT documented as of this encounter Care Teams Nursing Educator Relationship Specialty Start Date End Date No Ref-Primary, Physician PCP - General 11/15/22 Maya Goyal MD 303 [facility] 200 [place], [place] [address] Assigned PCP 06/27/12 10/17/23 [facility] [address] [place] [address] Assigned PCP 10/18/23 documented as of this encounter
--- OUTSIDE RECORDS SUMMARY | 2024-05-19 05:37 | XMS_ITS | Encounter Summary ---
Author Organization [place] Address [address] [place] [address]. [place] [address] Care Team Providers Care Geophysical Drafter Name Role Phone Maya Goyal MD Primary Care Provider Maya Goyal MD Unavailable Erlin Delcid MD Unavailable Mehdi Bass DPM Unavailable [phone] Kae Whipple [facility] Unavailable Maya Goyal MD Unavailable No Ref-Primary, Physician Primary Care Provider Mehdi Bass DPM Unavailable [phone] [facility] Unavailable Reason for Visit * Reason Comments Medication Refill Encounter Details Date Type Department Care Team (Late st Contact Info) Description 07/11/2021 [facility] [address] [place] [address] Maya Goyal MD [address] [place] [address] Medication Refill Social History Tobacco [...] Sex Assigned at Male 09/17/2018 5:00 PM PARTS SALES ADVISOR Gender Identity Male 09/17/2018 5:00 PM PARTS SALES ADVISOR Sexual Orientation Straight 09/17/2018 5: 00 PM PARTS SALES ADVISOR documented as of this encounter Miscellaneous Notes * Telephone Encounter - Rukhsana Yo RN - 07/13/2021 12:52 PM CDT Prescription approved per [facility] Refill Protocol. documented in this encounter Plan of Treatment Not on file documented as of this encounter Visit Diagnoses Diagnosis Type 2 diabetes mellitus with stage 1 chronic kidney disease, without long-term current use of insulin (H) documented in this encounter Additional Health Concerns Assessment Noted Time PHQ-9 Depression Total Score: 10 021 2:58 PM CDT documented as of this encounter Care Teams Geophysical Drafter Relationship Specialty Start Date End Date Maya Goyal MD [address] [place] [address] PCP - General 05/03/04 11/14/22 No Ref-Primary, Physician PCP - General 11/15/22 Maya Goyal MD [address] [place] [address] Assigned PCP 06/27/12 10/17/23 Erlin Delcid MD [address] [address] Assigned Surgical Provider 09/12/20 Mehdi Bass DPM [address] [facility] 300 [place] [address] Assigned Musculoskeletal Provider 08/14/21 10/27/22 Kae Whipple RP 303 [place] [address] Assigned MTM Pharmacist 03/18/22 Maya Goyal MD 303 [facility] 200 [place] [address] Assigned Pain Medication Provider 10/02/22 03/23/23 Mehdi Bass [place] [address] [facility] [address] [place] [address] Assigned Surgical Provider 10/28/22 [facility] 303 [place] [address] Assigned PCP 10/18/23 documented as of this encounter
--- OUTSIDE RECORDS SUMMARY | 2024-05-19 05:37 | XMS_ITS | Encounter Summary ---
Author Organization [place] Address [address] [place] [address]. [place] [address] Care Team Providers Care Scientific Recruiter Name Role Phone Maya Goyal MD Primary Care Provider [phone] Maya Goyal MD Unavailable Erlin Delcid MD Unavailable Mehdi Bass DPM Unavailable Kae Whipple [facility] Unavailable Maya Goyal MD Unavailable No Ref-Primary, Physician Primary Care Provider Mehdi Bass DPM Unavailable [facility] Unavailable Reason for Visit * Reason Comments Medication Refill Encounter Details Date Type Department Care Team (Late st Contact Info) Description 12/05/2021 [facility] [address] [place] [address] Maya Goyal MD [address] [place] [address] Medication Refill Social History Tobacco [...] Sex Assigned at Male 09/17/2018 5:00 PM SOLAR SALES ADVISOR Gender Identity Male 09/17/2018 5:00 PM SOLAR SALES ADVISOR Sexual Orientation Straight 09/17/2018 5: 00 PM SOLAR SALES ADVISOR COVID-19 Exposure Response Date Recorded In the last month, have you been in contact with someone who was confirmed or suspected to have Coronavirus / COVID-19? No / Unsure 11/17/2021 2:07 PM SOLAR SALES ADVISOR documented as of this encounter Miscellaneous Notes * Telephone Encounter - Celestino Latham RN - 12/06/2021 6:42 PM CDT Prescription approved per [facility] Refill Protocol. documented in this encounter Plan of Treatment Not on file documented as of this encounter Visit Diagnoses Diagnosis Type 2 diabetes mellitus with stage 1 chronic kidney disease, without long-term current use of insulin (H) BENIGN HYPERTENSION Essential hypertension, benign documented in this encounter Additional Health Concerns Assessment Noted Time PHQ-9 Depression Total Score: 10 021 2:58 PM CDT documented as of this encounter Care Teams Scientific Recruiter Relationship Specialty Start Date End Date Maya Goyal MD [address] [place] [address] PCP - General 05/03/04 11/14/22 No Ref-Primary, Physician PCP - General 11/15/22 Maya Goayl MD [address] [place] [address] Assigned PCP 06/27/12 10/17/23 Erlin Delcid MD [address] [place] [address] Assigned Surgical Provider 09/12/20 Mehdi Bass DPM [id number] [place] [address] [address] [place] [address] Assigned Musculoskeletal Provider 08/14/21 10/27/22 Kae Whipple [facility] [address] [place] [address] Assigned MTM Pharmacist 03/18/22 Maya Goyal MD [address] [place] [address] 200 [place] [address] Assigned Pain Medication Provider 10/02/22 03/23/23 Mehdi Bass DPM [address] [facility] [address] [place] [address] Assigned Surgical Provider 10/28/22 [facility] 303 [place] [address] Assigned PCP 10/18/23 documented as of this encounter
--- OUTSIDE RECORDS SUMMARY | 2024-05-19 05:37 | XMS_ITS | Encounter Summary ---
Author Organization [facility] Address [address] [place] [address] Care Team Providers Care High Density Talc Coater Operator Name Role Phone Maya Goyal MD Primary Care Provider Maya Goyal MD Unavailable Erlin Delcid MD Unavailable Mehdi Bass DPM Unavailable Kae Whipple [facility] Unavailable Maya Goyal MD Unavailable No Ref-Primary, Physician Primary Care Provider Mehdi Bass DPM Unavailable [facility] Unavailable Reason for Visit * Reason Onset Date Comments Patient Inquiry 09/02/2021 Encounter Details Date Type Department Care Team (Late st Contact Info) Description 09/02/2021 [facility] [address] [address] Mehdi Bass DPM [id number] [facility] [address] [place], [place] [address] Patient Inquiry Social History Tobacco Use Types Packs/Day Years [...] Sex Assigned at Male 09/17/2018 5:00 PM FOREPART ROUNDER Gender Identity Male 09/17/2018 5:00 PM FOREPART ROUNDER Sexual Orientation Straight 09/17/2018 5: 00 PM FOREPART ROUNDER COVID-19 Exposure Response Date Recorded In the last month, have you been in contact with someone who was confirmed or suspected to have Coronavirus / COVID-19? No / Unsure 08/17/2021 12:57 PM FOREPART ROUNDER documented as of this encounter Plan of Treatment Not on file documented as of this encounter Visit Diagnoses Not on filedocumented in this encounter Additional Health Concerns Assessment Noted Time PHQ-9 Depression Total Score: 10 021 2:58 PM CDT documented as of this encounter Care Teams High Density Talc Coater Operator Relationship Specialty Start Date End Date Maya Goyal MD [address] [facility] [address] [place] [address] PCP - General 05/03/04 11/14/22 No Ref-Primary, Physician PCP - General 11/15/22 Maya Goyal MD [address] [facility] [address] [place] [address] Assigned PCP 06/27/12 10/17/23 Erlin Delcid MD [address] [place] [address] Assigned Surgical Provider 09/12/20 Mehdi Bass DPM [address] [facility] [address] [place] [address] Assigned Musculoskeletal Provider 08/14/21 10/27/22 Kae Whipple [facility] [address] [place] [address] Assigned MTM Pharmacist 03/18/22 Maya Goyal MD [address] [facility] [address] [place] [address] Assigned Pain Medication Provider 10/02/22 03/23/23 Mehdi Bass DPM [address] [facility] [address] [place], [place] [id number] Assigned Surgical Provider 10/28/22 [facility] [address] [place], [place] [address] Assigned PCP 10/18/23 documented as of this encounter
--- OUTSIDE RECORDS SUMMARY | 2024-05-19 05:37 | XMS_ITS | Encounter Summary ---
Author Organization [place] [facility] Address [address] [place] [address]. [place] [address] Care Team Providers Care Hand Quilter Name Role Phone Maya Goyal MD Primary Care Provider [phone] Maya Goyal MD Unavailable Mehdi Sen MD Unavailable [phone] Erlin Delcid MD Unavailable [phone] Elicia Bedoya [facility] Unavailable [phone] Kae Whipple [facility] Unavailable Mehdi Bass DPM Unavailable [phone] Kae Whipple [facility] Unavailable Maya Goyal MD Unavailable No Ref-Primary, Physician Primary Care Provider Mehdi Bass DPM Unavailable [phone] [facility] Unavailable Encounter Details Date Type Department Care Team (Late st Contact Info) Description 11/01/2020 [facility] [address] [place] [address] Erlin Delcid MD [address] [facility] [address] [place], [place] [phone] Social History Tobacco Use Types Packs/Day Years [...] Sex Assigned at Male 09/17/2018 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 SUPERVISOR documented as of this encounter Plan of Treatment Not on file documented as of this encounter Visit Diagnoses Not on filedocumented in this encounter Additional Health Concerns Assessment Noted Time PHQ-9 Depression Total Score: 10 020 8:55 AM CDT documented as of this encounter Care Teams Hand Quilter Relationship Specialty Start Date End Date Maya Goyal MD [address] [place] [id number] PCP - General 05/03/04 11/14/22 No Ref-Primary, Physician PCP - General 11/15/22 Maya Goyal MD [address] [place] [address] Assigned PCP 06/27/12 10/17/23 Mehdi Sen MD [address] [place] [address] Assigned Musculoskeletal Provider 07/16/20 12/18/20 Erlin Delcid MD [address] [address] Assigned Surgical Provider 09/12/20 Elicia Bedoya [facility] [address] [facility] [address] [place] [address] Pharmacist Pharmacist 11/09/20 12/06/20 Kae Whipple [facility] [address] [place] [address] Pharmacist Pharmacist 11/30/20 12/06/20 Mehdi Bass DPM [address] [place] [address] [place] [address] Assigned Musculoskeletal Provider 08/14/21 10/27/22 Kae Whipple [facility] [address] [place] [address] Assigned MTM Pharmacist 03/18/22 Maya Goyal MD [address] [facility] 200 [place] [address] Assigned Pain Medication Provider 10/02/22 03/23/23 Mehdi Bass DPM [address] [place] [address] [address] [place] [address] Assigned Surgical Provider 10/28/22 [facility] [address] [place] [address] Assigned PCP 10/18/23 documented as of this encounter
--- OUTSIDE RECORDS SUMMARY | 2024-05-19 05:37 | XMS_ITS | Clinical Summary ---
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 100 tablet 12 03/02/2011 Active fish oil-omega-3 fatty acids 1000 MG capsule Take 1 g by mouth daily Active STATIN NOT PRESCRIBED (INTENTIONAL)Indica tions:Hyperlipidemi a LDL goal <100 Please choose reason not prescribed, below 2020 Active docusate sodium (COLACE) 100 MG capsule Take 1 capsule (100 mg) by mouth daily as needed for constipation 02/25/2021 Active aspirin (ASA) 81 MG chewable tablet Take 81 mg by mouth daily Active gabapentin (NEURONTIN) 300 MG capsuleIndications: Lumbar radiculopathy TAKE THREE CAPSULES BY MOUTH THREE TIMES A DAY 270 capsule 5 10/19/2021 Active tamsulosin (FLOMAX) 0.4 MG capsuleIndications: Slowing of urinary stream TAKE ONE CAPSULE BY MOUTH ONCE DAILY 30 capsule 10/26/2021 Active amLODIPine (NORVASC) 10 MG tabletIndications:E ssential hypertension, benign TAKE ONE TABLET BY MOUTH ONCE DAILY 90 tablet 1 10/26/2021 Active insulin pen needle (31G X 5 MM) 31G X 5 MM miscellaneousIndica tions:Type 2 diabetes mellitus with stage 1 chronic kidney disease, without long-term current use of insulin (H) Use 1 pen needles daily or as directed. 100 each 3 11/17/2021 Active glipiZIDE (GLUCOTROL XL) 10 MG 24 hr tabletIndications:T ype 2 diabetes mellitus with stage 1 chronic kidney disease, without long-term current use of insulin (H) TAKE TWO TABLETS BY MOUTH EVERY DAY 180 tablet 1 12/06/2021 Active carvedilol (COREG) 25 MG tabletIndications:E ssential hypertension, benign TAKE TWO TABLETS BY MOUTH TWICE A DAY WITH MEALS 360 tablet 1 12/06/2021 Active metFORMIN (GLUCOPHAGE-XR) 500 MG 24 hr tabletIndications:T ype 2 diabetes mellitus with stage 1 chronic kidney disease, without long-term current use of insulin (H) TAKE TWO TABLETS BY MOUTH TWICE A DAY WITH FOOD 360 tablet 1 12/06/2021 Active venlafaxine (EFFEXOR-XR) 150 MG 24 hr capsuleIndications: Moderate episode of recurrent major depressive disorder (H) TAKE ONE CAPSULE BY MOUTH ONCE DAILY 90 capsule 1 12/30/2021 Active venlafaxine (EFFEXOR XR) 75 MG 24 hr capsuleIndications: Moderate episode of recurrent major depressive disorder (H) TAKE ONE CAPSULE BY MOUTH ONCE DAILY WITH A 150MG CAPSULE 90 capsule 2 01/26/2022 Active oxyCODONE (ROXICODONE) 5 MG tabletIndications:B ilateral low back pain with right-sided sciatica, unspecified chronicity Take 1 tablet (5 mg) by mouth every 6 hours as needed for severe pain 60 tablet 04/09/2022 Active traZODone (DESYREL) 100 MG tabletIndications:M ajor depressive disorder, recurrent episode, mild (H24) TAKE TWO TABLETS BY MOUTH AT BEDTIME 60 tablet 5 05/07/2022 Active benazepril (LOTENSIN) 40 MG tabletIndications:C KD (chronic kidney disease) stage 1, GFR 90 ml/min or greater,Benign essential hypertension TAKE ONE TABLET BY MOUTH ONCE DAILY 90 tablet 06/23/2022 Active ULTICARE SHORT 31G X 8 MM insulin pen needleIndications:T ype 2 diabetes mellitus with stage 1 chronic kidney disease, without long-term current use of insulin (H) 2/DAY 100 each 3 10/17/2022 Active spironolactone (ALDACTONE) 50 MG tabletIndications:B enign essential hypertension TAKE ONE TABLET BY MOUTH TWICE A DAY 60 tablet 10/30/2022 Active LANTUS SOLOSTAR 100 UNIT/ML solnIndications:Typ e 2 diabetes mellitus with stage 1 chronic kidney disease, without long-term current use of insulin (H) INJECT 44 UNITS UNDER THE SKIN EVERY MORNING AND 40 UNITS AT AT BEDTIME 75 mL 1 01/30/2023 Active Active Problems Problem Noted Date Diagnosed Date Chronic, continuous use of opioids 01/15/2021 Moderate episode of recurrent major depressive d isorder 2020 Anxiety 01/30/2020 Complete Left Hamstring Tear (work related ) 10/26/2019 Controlled substance agreement signed 05/09/2019 Overview: Patient is followed by Maya Goyal MD for ongoing prescription of pain medication. All refills should only be approved by this provider, or covering partner. Medication(s): oxycodone. Maximum quantity per month: 40 Clinic visit frequency required: Q 6 months Controlled substance agreement: Encounter-Level CSA: There are no encounter-level csa. Patient-Level CSA: There are no patient-level csa. Pain Clinic evaluation in the past: Yes Date/Location: DIRE Total Score(s): No flowsheet data found. Last [facility] website verification: 09/19/19 [email or web address] CKD (chronic kidney disease) stage 1, GFR 90 ml/min or greater 03/22/2019 Type 2 diabetes mellitus wit h stage 1 chronic kidney disease, without long-term current use of insulin 03/22/2019 Facet arthritis of cervical region 09/23/2018 Bilateral low back pain with right-sided sciatica, unspecified chronicity 03/11/2018 Morbid obesity 07/13/2017 Hyperlipidemia LDL goal <100 07/24/2010 Allergic rhinitis 05/13/2004 Overview: Problem list name updated by automated process. Provider to review Benign essential hypertension 06/17/2002 Attention deficit disorder 06/17/2002 Overview: Problem list name updated by automated process. Provider to review Resolved Problems Problem Noted Date Diagnosed Date Resolved Date Fall -- Left Hip Abduction i njury 10/24/2019 (at work) 10/25/2019 2020 Left Thigh Pain 10/25/2019 10/26/2019 Left Hip Contusion 10/24/2019 0 Bilateral knee pain 07/02/2019 08/26/20 19 Chronic right-sided low back pain with right-sided sciatica 11/23/2016 03/19/2017 Hip pain, right 11/23/2016 03/19/2017 Multiple fractures of ribs 08/19/2013 0 04/03/2014 Major depression 10/25/2009 06/24/2010 Immunizations Name Administration Dates Next Due Influenza (IIV3) PF 08/04/2003 TDAP Vaccine (Adacel) 07/19/2016,06/24/2010 Twinrix A/B 12/28/2010,07/25/2010,06/24/2010 Family History Medical History Relation Comments Circulatory Father AAA Heart Disease Father ND with sudden d eath, complicated AAA repair Hypertension Father Respiratory Father emphysema Cancer Mother lymphoma Relation Status Comments Father Mother Social History Tobacco Use Types Packs/Day Years Used Date Smoking Tobacco: Former Cigarettes 0.5 20 0 03/18/1999 - 03/18/2019 Smokeless Tobacco: Never Tobacco Cessation:Counseling Given: No Comments:using e-cigarette Alcohol Use Standard Drinks/Week Comments Yes 0 (1 standard drink = 0.6 oz pure alcohol) No alcohol since 08/31/2018 - Currently in program PHQ-2 Answer Date Recorded PHQ-2 Score 0 05/16/2021 Adolescent Education Answer Date Record ed Getting School Help Needed Not on file 07/08 Sex and Gender Information Value Date Recorded Sex Assigned at Male 09/17/2018 5:00 PM DEFENSIVE FIRE CONTROL SYSTEMS OPERATOR Gender Identity Male 09/17/2018 5:00 PM DEFENSIVE FIRE CONTROL SYSTEMS OPERATOR Sexual Orientation Straight 09/17/2018 5: 00 PM DEFENSIVE FIRE CONTROL SYSTEMS OPERATOR Last Filed Vital Signs Vital Sign Reading Time Taken Comments Blood Pressure 138/88 11/17/2021 2:13 PM DEFENSIVE FIRE CONTROL SYSTEMS OPERATOR Pulse 99 11/17/2021 2:13 PM DEFENSIVE FIRE CONTROL SYSTEMS OPERATOR Temperature 37.1 ??C (98.7 ??F) 11/17/2021 2:13 PM CS T Respiratory Rate 18 11/17/2021 2:13 PM DEFENSIVE FIRE CONTROL SYSTEMS OPERATOR Oxygen Saturation 98% 11/17/2021 2:13 PM DEFENSIVE FIRE CONTROL SYSTEMS OPERATOR Inhaled Oxygen Concentration - - Weight 154.7 kg (341 lb) 11/17/2021 2:13 PM DEFENSIVE FIRE CONTROL SYSTEMS OPERATOR Height 188 cm (6' 2) 11/17/2021 2:13 PM DEFENSIVE FIRE CONTROL SYSTEMS OPERATOR Body Mass Index 43.78 11/17/2021 2:13 PM DEFENSIVE FIRE CONTROL SYSTEMS OPERATOR Plan of Treatment Health Maintenance Due Date Last Done Comments ANNUAL REVIEW OF HM ORDERS 1960 CT COLONOGRAPHY 1960 FLEX SIG 1960 sDNA (Cologuard) 1960 Pneumococcal Vaccine: 65+ Years (1 of 2 - PCV) 1964 HIV SCREENING 1973 FIT 06/25/2014 06/25/2013, 04/14/2011 RSV VACCINE ( & 60+) (1 - 1-dose 60+ series) 2018 LIPID 04/13/2022 04/13/2021, 09/25, 05/24/2020, Additional history exists A1C 05/10/2022 11/10/2021, 03/25, 10/21/2020, Additional history exists KEITH ASSESSMENT 05/16/2022 05/16/2021, 10/25, 04/15/2020, Additional history exists PHQ-9 05/16/2022 05/16/2021, 10/25, 04/15/2020, Additional history exists BMP 11/10/2022 11/10/2021, 03/25, 11/10/2020, Additional history exists MICROALBUMIN 11/10/2022 11/10/2021, 09/25, 10/14/2019, Additional history exists URINE DRUG SCREEN 11/10/2022 11/10/2021, 10/14/2019 CONTROLLED SUBSTANCE AGREEMENT FOR CHRONIC PAIN MANAGEMENT 11/17/2022 11/17/2021 DIABETIC FOOT EXAM 11/27/2022 11/27/2021, 0 11/10/2020, 07/23/2019 COVID-19 Vaccine ( season) 2023 FALL RISK ASSESSMENT 2023 03/11/2018, 01/21/2018, 09/18/2017 MEDICARE ANNUAL WELLNESS VISIT 06/28/2023 06/28/2022, 05/25/2020, 03/21/2019, Additional history exists EYE EXAM 07/12/2023 07/12/2022, 04/25, 04/09/2020, Additional history exists INFLUENZA VACCINE (#1) 2024 9 (Declined), 08/04/2003 COLONOSCOPY 08/13/2024 08/13/2019, 07/26, 08/10/2014, Additional history exists COLORECTAL CANCER SCREENING 08/13/2024 ADVANCE CARE PLANNING 2025 2020 DTAP/TDAP/TD IMMUNIZATION (3 - Td or Tdap) 07/19/2026 07/19/2016, 06/24/2010 URINALYSIS Completed 10/13/2010 HEPATITIS C SCREENING Completed 08/10/2017 LUNG CANCER SCREENING Discontinued 02/18/2018, 013 DEPRESSION ACTION PLAN Addressed 07/03/2019 (Not Ne eded) Overridden with the intention of not completing the topic ZOSTER IMMUNIZATION Addressed 10/23/2022, 05/25/2020 (Declined), 07/03/2019 (Declined) Overridden with the intention of not completing the topic HPV IMMUNIZATION Aged Out No longer e ligible based on patient's age to complete this topic IPV IMMUNIZATION Aged Out No longer e ligible based on patient's age to complete this topic MENINGITIS IMMUNIZATION Aged Out No l onger eligible based on patient's age to complete this topic RSV MONOCLONAL ANTIBODY Aged Out No l onger eligible based on patient's age to complete this topic Procedures Procedure Name Priority Date/Time Associated Diagnosis Comments URINE DRUG SCREEN CLINIC Routine 11/10/2021 10:09 AM DEFENSIVE FIRE CONTROL SYSTEMS OPERATOR Chronic, continuous use of opioids ALBUMIN RANDOM URINE QUANTITATIVE Routine 11/10/2021 10:09 AM DEFENSIVE FIRE CONTROL SYSTEMS OPERATOR Type 2 diabetes mellitus with stage 1 chronic kidney disease, without long-term current use of insulin (H) Benign essential hypertension BASIC METABOLIC PANEL Routine 11/10/2021 10:01 AM DEFENSIVE FIRE CONTROL SYSTEMS OPERATOR Type 2 diabetes mellitus with stage 1 chronic kidney disease, without long-term current use of insulin (H) Benign essential hypertension HEMOGLOBIN A1C Routine 11/10/2021 10:01 AM DEFENSIVE FIRE CONTROL SYSTEMS OPERATOR Type 2 diabetes mellitus with stage 1 chronic kidney disease, without long-term current use of insulin (H) EYE EXAM - HIM SCAN 05/20/2021 1 2:00 AM CDT LIPID REFLEX TO DIRECT LDL PANEL Routine 04/13/2021 4:09 PM CDT Hyperlipidemia LDL goal <100 COLONOSCOPY Routine 08/13/2019 10:22 AM DEFENSIVE FIRE CONTROL SYSTEMS OPERATOR CT CHEST/ABDOMEN/PELVIS W CONTRAST STAT 02/18/2018 12:20 PM CDT HEPATITIS C SCREEN REFLEX TO HCV RNA QUANT AND GENOTYPE Routine 08/10/2017 11:22 AM DEFENSIVE FIRE CONTROL SYSTEMS OPERATOR Encounter for routine adult health examination without abnormal findings FECAL COLORECTAL CANCER SCREEN FIT Routine 06/25/2013 11:31 AM CDT Screen for colon cancer UA MACROSCOPIC WITH REFLEX TO MICRO Routine 10/13/2010 4:49 PM DEFENSIVE FIRE CONTROL SYSTEMS OPERATOR HTN (hypertension) from Last 3 Months or Most Recently Relevant to Health Maintenance Results * (ABNORMAL) Drug Abuse Screen Panel 13, Urine (Pain Care Package) - lab collect (11/10/2021 10:09 AMCST) Cannabinoids (23-uet-5-carboxy -9-THC) Not Detected Not Detected, Indeterminate 11/10/2021 10:28 AM DEFENSIVE FIRE CONTROL SYSTEMS OPERATOR [facility] Comment:Cutoff for a negativ e cannabinoid is 50 ng/mL or less. Phencyclidine Not Detected Not Detected, Indeterminate 11/10/2021 10:28 AM DEFENSIVE FIRE CONTROL SYSTEMS OPERATOR [facility] Comment:Cutoff for a negativ e PCP is 25 ng/mL or less. Cocaine (Benzoylecgonine) Not Detected Not Detected, Indeterminate 11/10/2021 10:28 AM DEFENSIVE FIRE CONTROL SYSTEMS OPERATOR [facility] Comment:Cutoff for a negativ e cocaine is 150 ng/ml or less. Methamphetamine (d-Methamphetamin e) Not Detected Not Detected, Indeterminate 11/10/2021 10:28 AM DEFENSIVE FIRE CONTROL SYSTEMS OPERATOR [facility] Comment:Cutoff for a negativ e methamphetamine is 500 ng/ml or less. Opiates (Morphine) Not Detected Not Detected, Indeterminate 11/10/2021 10:28 AM DEFENSIVE FIRE CONTROL SYSTEMS OPERATOR [facility] Comment:Cutoff for a negativ e opiate is 100 ng/ml or less. Amphetamine (d-Amphetamine) Not Detected Not Detected, Indeterminate 11/10/2021 10:28 AM DEFENSIVE FIRE CONTROL SYSTEMS OPERATOR [facility] Comment:Cutoff for a negativ e amphetamine is 500 ng/mL or less. Benzodiazepines (Nordiazepam) Not Detected Not Detected, Indeterminate 11/10/2021 10:28 AM DEFENSIVE FIRE CONTROL SYSTEMS OPERATOR [facility] Comment:Cutoff for a negativ e benzodiazepine is 150 ng/ml or less. Tricyclic Antidepressants (Desipramine) Not Detected Not Detected, Indeterminate 11/10/2021 10:28 AM DEFENSIVE FIRE CONTROL SYSTEMS OPERATOR [facility] Comment:Cutoff for a negativ e tricyclic antidepressant is 300 ng/ml or less. Methadone Not Detected Not Detected, Indeterminate 11/10/2021 10:28 AM DEFENSIVE FIRE CONTROL SYSTEMS OPERATOR [facility] Comment:Cutoff for a negativ e methadone is 200 ng/ml or less. Barbiturates (Butalbital) Not Detected Not Detected, Indeterminate 11/10/2021 10:28 AM DEFENSIVE FIRE CONTROL SYSTEMS OPERATOR [facility] Comment:Cutoff for a negativ e barbituate is 200 ng/ml or less. Oxycodone Detected(A ) Not Detected, Indeterminate 11/10/2021 10:28 AM DEFENSIVE FIRE CONTROL SYSTEMS OPERATOR [facility] Comment: Cutoff for a positive oxycodone is greater than 100 ng/ml. This is an unconfirmed screening result to be used for medical purposes only. Propoxyphene (Norpropoxyphene) Not Detected Not Detected, Indeterminate 11/10/2021 10:28 AM DEFENSIVE FIRE CONTROL SYSTEMS OPERATOR [facility] Comment:Cutoff for a negativ e propoxyphene is 300 ng/ml or less. Buprenorphine Not Detected Not Detected, Indeterminate 11/10/2021 10:28 AM DEFENSIVE FIRE CONTROL SYSTEMS OPERATOR [facility] Comment:Cutoff for a negativ e buprenorphine is 10 ng/ml or less. Urine MID-STREAM URINE SPECIMEN / Unknown Non-blood Collection / Unknown 11/10/2021 10:09 AM DEFENSIVE FIRE CONTROL SYSTEMS OPERATOR 11/10/2021 10:09 AM DEFENSIVE FIRE CONTROL SYSTEMS OPERATOR Maya Goyal MD LAB - URINE ORDERABL ES [facility] [address], [address] [place] [address], [facility] [phone] * (ABNORMAL) Albumin Random Urine Quantitative with Creat Ratio (11/10/2021 10:09 AM DEFENSIVE FIRE CONTROL SYSTEMS OPERATOR) Creatinine Urine mg/dL 74 mg/dL 11/11/2021 11:04 AM DEFENSIVE FIRE CONTROL SYSTEMS OPERATOR [facility] Albumin Urine mg/L 14 mg/L 11/11/2021 11:04 AM DEFENSIVE FIRE CONTROL SYSTEMS OPERATOR [facility] Albumin Urine mg/g Cr 18.92(H) 0.00 - 17.00 mg/g Cr 11/11/2021 11:04 AM DEFENSIVE FIRE CONTROL SYSTEMS OPERATOR [facility] Urine MID-STREAM URINE SPECIMEN / Unknown Non-blood Collection / Unknown 11/10/2021 10:09 AM DEFENSIVE FIRE CONTROL SYSTEMS OPERATOR 11/10/2021 10:09 AM DEFENSIVE FIRE CONTROL SYSTEMS OPERATOR Maya Goyal MD LAB - URINE ORDERABL ES Performing Organization Address [facility]/ZIP Co de Phone Number [facility] [address] Lab (no room number, 1st floor of clinic) [place] [address], [facility] [phone] * (ABNORMAL) Hemoglobin A1c (11/10/2021 10:01 AM DEFENSIVE FIRE CONTROL SYSTEMS OPERATOR) Hemoglobin A1C 6.6(H) 0.0 - 5.6 % 11/10/2021 10:26 AM DEFENSIVE FIRE CONTROL SYSTEMS OPERATOR [facility] Comment: Normal <5.7% Prediabetes 5.7-6.4% ?? Diabetes 6.5% or higher Note: Adopted from ADA consensus guidelines. Blood BLOOD SPECIMEN / Unknown Venipuncture / Unknown 11/10/2021 10:01 AM DEFENSIVE FIRE CONTROL SYSTEMS OPERATOR 11/10/2021 10:02 AM DEFENSIVE FIRE CONTROL SYSTEMS OPERATOR Maya Goyal MD LAB - BLOOD ORDERABL ES [facility]AT[facility] [address], [address] [place] [address], [facility] [phone] * (ABNORMAL) Basic metabolic panel (Ca, Cl, CO2, Creat, Gluc, K, Na, BUN) (11/10/2021 10:01 AM DEFENSIVE FIRE CONTROL SYSTEMS OPERATOR) Sodium 131(L) 133 - 144 mmol/L 11/11/2021 8:39 AM DEFENSIVE FIRE CONTROL SYSTEMS OPERATOR [facility] Potassium 4.8 3.4 - 5.3 mmol/L 11/11/2021 8:39 AM DEFENSIVE FIRE CONTROL SYSTEMS OPERATOR [facility] Chloride 96 94 - 109 mmol/L 11/11/2021 8:39 AM DEFENSIVE FIRE CONTROL SYSTEMS OPERATOR [facility] Carbon Dioxide (CO2) 22 20 - 32 mmol/L 11/11/2021 8:39 AM DEFENSIVE FIRE CONTROL SYSTEMS OPERATOR [facility] Anion Gap 13 3 - 14 mmol/L 11/11/2021 8:39 AM DEFENSIVE FIRE CONTROL SYSTEMS OPERATOR [facility] Urea Nitrogen 11 7 - 30 mg/dL 11/11/2021 8:39 AM DEFENSIVE FIRE CONTROL SYSTEMS OPERATOR [facility] Creatinine 0.92 0.66 - 1.25 mg/dL 11/11/2021 8:39 AM DEFENSIVE FIRE CONTROL SYSTEMS OPERATOR [facility] Calcium 8.9 8.5 - 10.1 mg/dL 11/11/2021 8:39 AM DEFENSIVE FIRE CONTROL SYSTEMS OPERATOR [facility] Glucose 135(H) 70 - 99 mg/dL 11/11/2021 8:39 AM DEFENSIVE FIRE CONTROL SYSTEMS OPERATOR [facility] GFR Estimate >90 >60 mL/min/1.7 3m2 11/11/2021 8:39 AM DEFENSIVE FIRE CONTROL SYSTEMS OPERATOR [facility] Comment:Effective August 252020 eGFRcr in adults is calculated using the 2020 CKD-EPI creatinine equation which includes age and gender (Donis et al., NEJM, DOI: 10.1056/BXMAqe0387284) Blood BLOOD SPECIMEN / Unknown Venipuncture / Unknown 11/10/2021 10:01 AM DEFENSIVE FIRE CONTROL SYSTEMS OPERATOR 11/10/2021 10:02 AM DEFENSIVE FIRE CONTROL SYSTEMS OPERATOR Maya Goyal MD LAB - BLOOD ORDERABL ES [facility] [address] Lab (no room number, 1st floor of clinic) [place] [address], [facility] [phone] * EYE EXAM - HIM SCAN (05/20/2021 12:00 AM CDT) RETINOPATHY NEGATIVE 05/20/2021 Narrative Kya Riley - 05/20/2021 12:00 AM CDT DIABETIC EYE EXAM [facility] Provider Outside OTHER * (ABNORMAL) Lipid panel reflex to direct LDL Fasting (04/13/2021 4:09 PM CDT) Cholesterol 263(H) <200 mg/dL 04/15/2021 8:03 AM CDT [facility] Comment: Age 0-19 years Desirable: <170 mg/dL Borderline high: ??170-199 mg/dl High: ?>199 mg/dl Age 20 years and older Desirable: <200 mg/dL Triglycerides 369(H) <150 mg/dL 04/15/2021 8:03 AM CDT [facility] Comment: 0-9 years: Normal: ?Less than 75 mg/dL Borderline high: ??75-99 mg/dL High: ? Greater than or equal to 100 mg/dL 0-19 years: Normal: ?Less than 90 mg/dL Borderline high: ??90-129 mg/dL High: ? Greater than or equal to 130 mg/dL 20 years and older: Normal: ?Less than 150 mg/dL Borderline high: ??150-199 mg/dL High: ? 200-499 mg/dL Very high: ?? Greater than or equal to 500 mg/dL Direct Measure HDL 41 >=40 mg/dL 04/15/2021 8:03 AM CDT [facility] Comment: 0-19 years: ? Greater than or equal to 45 mg/dL Low: Less than 40 mg/dL Borderline low: 40-44 mg/dL 20 years and older: Female: Greater than or equal to 50 mg/dL Male: ?? Greater than or equal to 40 mg/dL LDL Cholesterol Calculated 148(H) <=100 mg/dL 04/15/2021 8:03 AM CDT [facility] Comment: Age 0-19 years: Desirable: 0-110 mg/dL Borderline high: 110-129 mg/dL High: >= 130 mg/dL Age 20 years and older: Desirable: <100mg/dL Above desirable: 100-129 mg/dL Borderline high: 130-159 mg/dL High: 160-189 mg/dL Very high: >= 190 mg/dL Non HDL Cholesterol 222(H) <130 mg/dL 04/15/2021 8:03 AM CDT [facility] Comment: 0-19 years: Desirable: ? Less than 120 mg/dL Borderline high: ?? 120-144 mg/dL High: ? Greater than or equal to 145 mg/dL 20 years and older: Desirable: ? 130 mg/dL Above Desirable: 130-159 mg/dL Borderline high: ?? 160-189 mg/dL High: ? 190-219 mg/dL Very high: ?? Greater than or equal to 220 mg/dL Patient Fasting > 8hrs? Yes 04/15/2021 8:03 AM CDT [facility] Blood STRUCTURE OF LEFT UPPER LIMB / Unknown Venipuncture / Unknown 04/13/2021 4:09 PM CDT 04/13/2021 4:10 PM CDT Maya Goyal MD LAB - BLOOD ORDERABL ES [facility] [address] Lab (no room number, 1st floor of clinic) [place] [address], [facility] [phone] * COLONOSCOPY (08/13/2019 10:22 AM DEFENSIVE FIRE CONTROL SYSTEMS OPERATOR) COLONOSCOPY [facility] Patient Name: Rafa Hickey ?Procedure Date: 08/13/2019 10:22 AM ? Date of : 1960 ? Admit Type: Outpatient Age: 59 ? Gender: Male Attending MD: Karlo Luis MD ?? Total Sedation Time: 21_minutes continuous bedside 1:1 Instrument Name: 221 - Adult Colonoscope Procedure: ?Colonoscopy Indications: ?High risk colon cancer surveillance: Personal ?history of colonic polyps Providers: ?Karlo Luis MD (Doctor) Referring MD: ? Maya Goyal MD (Referring MD) Medicines: ?Midazolam 4 mg IV, Fentanyl 200 micrograms IV, ?Ondansetron 4 mg IV Complications: ?No immediate complications. Procedure: ?Pre-Anesthesia Assessment: ?- Prior to the procedure, a History and Physical ?was performed, and patient medications and ?allergies were reviewed. The patient is competent. ?The risks and benefits of the procedure and the ?sedation options and risks were discussed with the ?patient. All questions were answered and informed ?consent was obtained. Patient identification and ?proposed procedure were verified in the ?pre-procedure area. Mental Status Examination: ?alert and oriented. Airway Examination: normal ?oropharyngeal airway and neck mobility. Respiratory ?Examination: clear to auscultation. CV Examination: ?normal. Prophylactic Antibiotics: The patient does ?not require prophylactic antibiotics. Prior ?Anticoagulants: The patient has taken no previous ?anticoagulant or antiplatelet agents. ASA Grade ?Assessment: II - A patient with mild systemic ?disease. After reviewing the risks and benefits, ?the patient was deemed in satisfactory condition to ?undergo the procedure. The anesthesia plan was to ?use moderate sedation / analgesia (conscious ?sedation). Immediately prior to administration of ?medications, the patient was re-assessed for ?adequacy to receive sedatives. The heart rate, ?respiratory rate, oxygen saturations, blood ?pressure, adequacy of pulmonary ventilation, and ?response to care were monitored throughout the ?procedure. The physical status of the patient was ?re-assessed after the procedure. ?After obtaining informed consent, the colonoscope ?was passed under direct vision. Throughout the ?procedure, the patient's blood pressure, pulse, and ?oxygen saturations were monitored continuously. The ?Olympus Adult Colonoscope, Model # CF-H190L, [place] ?# 221, SN # [id number] was introduced through the anus ?and advanced to the cecum, identified by ?appendiceal orifice and ileocecal valve. The ?colonoscopy was performed without difficulty. The ?patient tolerated the procedure well. The quality ?of the bowel preparation was good. ? Findings: ? The perianal and digital rectal examinations were normal. ? Multiple small and large-mouthed diverticula were found in the entire ? colon. ? The exam was otherwise without abnormality on direct and retroflexion ? views. ? Impression: ? - Diverticulosis in the entire examined colon. ?- The examination was otherwise normal on direct ?and retroflexion views. ?- No specimens collected. Recommendation: ? - Repeat colonoscopy in 5 years for surveillance. ?Do a split dose prep. ? Procedure Code(s): ? --- Professional --- ? G0105, Colorectal cancer screening; colonoscopy on individual at high ? risk Diagnosis Code(s): ? --- Professional --- ? Z86.010, Personal history of colonic polyps CPT copyright 2018 [employer]. All rights reserved. The codes documented in this report are preliminary and upon marine air ground task force planners review may be revised to meet current compliance requirements. Electronically signed by Karlo Luis MD __ Karlo Luis MD 08/13/2019 10:51:03 AM I was physically present for the entire viewing portion of the exam. Karlo Luis MD Number of Addenda: 0 Note Initiated On: 08/13/2019 10:22 AM MRN: [id number] Procedure Date: ? 08/13/2019 10:22:02 AM Scope Withdrawal Time: 0 hours 6 minutes 13 seconds Total Procedure Duration: 0 hours 18 minutes 55 seconds Estimated Blood Loss: ? Scope In: 10:25:38 AM Scope Out: 10:44:33 AM RADIOLOGY RESULTS 08/13/2019 10:2 2 AM DEFENSIVE FIRE CONTROL SYSTEMS OPERATOR Maya Goyal MD PROCEDURES RADIOLOGY RESULTS * CT Chest/Abdomen/Pelvis w Contrast (02/18/2018 12:20 PM CDT) Anatomical Region Laterality Modality Abdomen/Pelvis, Chest, SUBRA D CT BODY, UMP CT CHEST, UMP CT ABDOMEN PELVIS, RAD CT Computed Tomography Impressions 02/18/2018 2:07 PM CDT IMPRESSION: 1. No evidence of pulmonary embolism. 2. Stable pulmonary nodules. Based on long-term stability, these can be considered benign. 3. Fatty infiltration of the liver. LOLIS BEAR MD Narrative 02/18/2018 2:[address] CHEST, ABDOMEN, AND PELVIS WITH CONTRAST 02/18/2018 12:20 PM HISTORY: Upper abdominal pain, right chest pain, elevated D-dimer. COMPARISON: Chest CT from 08/01/2013. Abdomen and pelvis CT from 02/17/2018. TECHNIQUE: Volumetric helical acquisition of CT images from the lung apices through the symphysis pubis after the administration of 83 mL Isovue-370 intravenous contrast. Radiation dose for this scan was reduced using automated exposure control, adjustment of the mA and/or kV according to patient size, or iterative reconstruction technique. FINDINGS: Chest: Motion artifact limits evaluation of the lung bases. There is no evidence of pulmonary embolism. There is a 1 cm calcified granuloma in the right lower lobe. A 4 mm nodule in the right middle lobe, image 98, is stable. A similar sized subpleural nodule more inferiorly in the right middle lobe, image 108, is also stable. There are no pulmonary infiltrates. There is no pleural or pericardial effusion. Abdomen and pelvis: The liver, spleen, pancreas, adrenal glands, and kidneys show no acute abnormality. Diffuse fatty infiltration of the liver. There is mild thickening of the adrenal glands. Probable small left renal cyst. Atherosclerotic changes of the aorta but no evidence of aneurysm. Large and small bowel are normal in caliber. Appendix is normal. No free intraperitoneal air or ascites. 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 There are healed right-sided rib fractures. Degenerative changes in the spine. Procedure Note Lolis Bear MD - 02/18/2018 CT CHEST, ABDOMEN, AND PELVIS WITH CONTRAST 02/18/2018 12:20 PM HISTORY: Upper abdominal pain, right chest pain, elevated D-dimer. COMPARISON: Chest CT from 08/01/2013. Abdomen and pelvis CT from 02/17/2018. TECHNIQUE: Volumetric helical acquisition of CT images from the lung apices through the symphysis pubis after the administration of 83 mL Isovue-370 intravenous contrast. Radiation dose for this scan was reduced using automated exposure control, adjustment of the mA and/or kV according to patient size, or iterative reconstruction technique. FINDINGS: Chest: Motion artifact limits evaluation of the lung bases. There is no evidence of pulmonary embolism. There is a 1 cm calcified granuloma in the right lower lobe. A 4 mm nodule in the right middle lobe, image 98, is stable. A similar sized subpleural nodule more inferiorly in the right middle lobe, image 108, is also stable. There are no pulmonary infiltrates. There is no pleural or pericardial effusion. Abdomen and pelvis: The liver, spleen, pancreas, adrenal glands, and kidneys show no acute abnormality. Diffuse fatty infiltration of the liver. There is mild thickening of the adrenal glands. Probable small left renal cyst. Atherosclerotic changes of the aorta but no evidence of aneurysm. Large and small bowel are normal in caliber. Appendix is normal. No free intraperitoneal air or ascites. 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 There are healed right-sided rib fractures. Degenerative changes in the spine. IMPRESSION: 1. No evidence of pulmonary embolism. 2. Stable pulmonary nodules. Based on long-term stability, these can be considered benign. 3. Fatty infiltration of the liver. LOLIS BEAR MD Homar Vega MD IMG CT ORDERABLES * Hepatitis C Screen Reflex to HCV RNA Quant and Genotype (08/10/2017 11:22 AM DEFENSIVE FIRE CONTROL SYSTEMS OPERATOR) Pathologist [facility] Hepatitis C Antibody Nonreactive NR^Nonre active 08/13/2017 10:46 AM DEFENSIVE FIRE CONTROL SYSTEMS OPERATOR [facility] Comment: Assay performance characteristics have not been established for newborns, infants, and children Blood specimen (specimen) 08/10/2017 11:22 AM DEFENSIVE FIRE CONTROL SYSTEMS OPERATOR 08/10/2017 11:23 AM DEFENSIVE FIRE CONTROL SYSTEMS OPERATOR Maya Goyal MD LAB - BLOOD ORDERABL ES [address] * Fecal colorectal cancer screen (FIT) (06/25/2013 11:31 AM CDT) Pathologist [facility] Occult Blood Scn FIT Negative NEG [facility] Stool specimen (specimen) 06/25/2013 11:31 AM CDT 06/25/2013 11:32 AM CDT Maya Goyal MD LAB - STOOLS ORDERAB LES [facility] * (ABNORMAL) UA macroscopic with reflex to micro (10/13/2010 4:49 PM DEFENSIVE FIRE CONTROL SYSTEMS OPERATOR) Pathologist [facility] Color Urine Yellow [facility] Appearance Urine Clear [facility] Glucose Urine Negative NEG mg/dL [facility] Bilirubin Urine Negative NEG [facility] Ketones Urine Negative NEG mg/dL [facility] Specific [place] Urine 1.015 1.003 - 1.035 [facility] Blood Urine Moderate(A) NEG [facility] pH Urine 5.5 5.0 - 7.0 pH [facility] Protein Albumin Urine Negative NEG mg/dL [facility] Urobilinogen Urine 0.2 0.2 - 1.0 EU/dL [facility] Nitrite Urine Negative NEG [facility] Leukocyte Esterase Urine Negative NEG [facility] Source Midstream Urine [facility] Urine specimen (specimen) 10/13/2010 4:49 PM DEFENSIVE FIRE CONTROL SYSTEMS OPERATOR 10/13/2010 4:54 PM DEFENSIVE FIRE CONTROL SYSTEMS OPERATOR Maya Goyal MD LAB - URINE ORDERABL ES Performing Organization Address City/State/[facility] Co de Phone Number [facility] from Last 3 Months or Most Recently Relevant to Health Maintenance Advance Directives For more information, please contact: [phone] * Full Code (Latest Code Status on File) Date Activated Date Inactivated Comments 10/26/2019 11:54 AM 11/10/2020 12:35 AM Question Answer Comments Code status determined by: Discussion with patie nt/legal decision maker * Full Code Date Activated Date Inactivated Comments 10/24/2019 9:24 PM 10/26/2019 11:54 AM Question Answer Comments Code status determined by: Discussion with patie nt/legal decision maker * Full Code Date Activated Date Inactivated Comments 09/12/2017 10:19 AM 08/13/2019 9:16 AM * Full Code Date Activated Date Inactivated Comments 09/06/2017 1:26 PM 09/12/2017 10:19 AM Care Teams Recycling Operations Manager Relationship Specialty Start Date End Date No Ref-Primary, Physician PCP - General 11/15/22 [facility] - [address] [address] Assigned PCP 10/18/23
--- OUTSIDE RECORDS SUMMARY | 2024-05-19 05:37 | XMS_ITS | Encounter Summary ---
Author Organization [facility] Address [address] [place] [address] Care Team Providers Care Plasma Table Operator Name Role Phone Maya Goyal MD Primary Care Provider Maya Goyal MD Unavailable Erlin Delcid MD Unavailable [phone] Mehdi Bass DPM Unavailable [phone] Kae Whipple [facility] Unavailable Maya Goyal MD Unavailable No Ref-Primary, Physician Primary Care Provider Mehdi Bass DPM Unavailable [facility] Unavailable Encounter Details Date Type Department Care Team (Late st Contact Info) Description 01/12/2022 [facility] [place] [facility] [address] [place] [address] Maya Goyal MD [address] [place] [address] Social History Tobacco Use Types Packs/Day Years [...] Sex Assigned at Male 09/17/2018 5:00 PM SALES REPRESENTATIVE [employer] Gender Identity Male 09/17/2018 5:00 PM SALES REPRESENTATIVE [employer] Sexual Orientation Straight 09/17/2018 5: 00 PM SALES REPRESENTATIVE [employer] SUPPLIES documented as of this encounter Plan of Treatment Not on file documented as of this encounter Visit Diagnoses Not on filedocumented in this encounter Additional Health Concerns Assessment Noted Time PHQ-9 Depression Total Score: 10 021 2:58 PM CDT documented as of this encounter Care Teams Plasma Table Operator Relationship Specialty Start Date End Date Maya Goyal MD [address] [place] [address] PCP - General 05/03/04 11/14/22 No Ref-Primary, Physician PCP - General 11/15/22 Maya Goyal MD [address] [place] [address] Assigned PCP 06/27/12 10/17/23 Erlin Delcid MD [id number] [address] Assigned Surgical Provider 09/12/20 Mehdi Bass DPM [id number] [facility] [address] [place] [address] Assigned Musculoskeletal Provider 08/14/21 10/27/22 Kae Whipple [facility] [address] [place] [address] Assigned MTM Pharmacist 03/18/22 Maya Goyal MD [address] [facility] [address] [place] [address] Assigned Pain Medication Provider 10/02/22 03/23/23 Mehdi Bass DPM [address] [facility] [address] [place], [place] [address] Assigned Surgical Provider 10/28/22 [facility] [address] [place], [place] [address] Assigned PCP 10/18/23 documented as of this encounter
--- OUTSIDE RECORDS SUMMARY | 2024-05-19 05:37 | XMS_ITS | Referral Summary ---
Author Organization [facility] Address [address] [place] [address] Care Team Providers Care Software Support Analyst Name Role Phone No Ref-Primary, Physician Primary Care Provider [facility] Unavailable Allergies Active Allergy Reactions Criticality Noted [...] Total Score(s): No flowsheet data found. Last [facility] website verification: 09/19/19 [email or web address] CKD (chronic kidney disease) stage 1, GFR [...] TDAP Vaccine (Adacel) 07/19/2016,06/24/2010 Twinrix A/B 12/28/2010,07/25/2010,06/24/2010 Social History Tobacco Use Types Packs/Day Years [...] Sex Assigned at Male 09/17/2018 5:00 PM WHEEL PRESS CLERK Gender Identity Male 09/17/2018 5:00 PM WHEEL PRESS CLERK Sexual Orientation Straight 09/17/2018 5: 00 PM WHEEL PRESS CLERK Last Filed Vital Signs Vital Sign Reading Time Taken Comments Blood Pressure 138/88 11/17/2021 2:13 PM WHEEL PRESS CLERK Pulse 99 11/17/2021 2:13 PM WHEEL PRESS CLERK Temperature 37.1 ??C (98.7 ??F) 11/17/2021 2:13 PM CS T Respiratory Rate 18 11/17/2021 2:13 PM WHEEL PRESS CLERK Oxygen Saturation 98% 11/17/2021 2:13 PM WHEEL PRESS CLERK Inhaled Oxygen Concentration - - Weight 154.7 kg (341 lb) 11/17/2021 2:13 PM WHEEL PRESS CLERK Height 188 cm (6' 2) 11/17/2021 2:13 PM WHEEL PRESS CLERK Body Mass Index 43.78 11/17/2021 2:13 PM WHEEL PRESS CLERK Plan of Treatment Not on file Procedures Procedure Name Priority Date/Time Associated Diagnosis Comments URINE DRUG SCREEN CLINIC Routine 11/10/2021 10:09 AM WHEEL PRESS CLERK Chronic, continuous use of opioids ALBUMIN RANDOM URINE QUANTITATIVE Routine 11/10/2021 10:09 AM WHEEL PRESS CLERK Type 2 diabetes mellitus with stage 1 chronic kidney disease, without long-term current use of insulin (H) Benign essential hypertension BASIC METABOLIC PANEL Routine 11/10/2021 10:01 AM WHEEL PRESS CLERK Type 2 diabetes mellitus with stage 1 chronic kidney disease, without long-term current use of insulin (H) Benign essential hypertension HEMOGLOBIN A1C Routine 11/10/2021 10:01 AM WHEEL PRESS CLERK Type 2 diabetes mellitus with stage 1 chronic kidney disease, without long-term current use of insulin (H) EYE EXAM - HIM SCAN 05/20/2021 1 2:00 AM CDT LIPID REFLEX TO DIRECT LDL PANEL Routine 04/13/2021 4:09 PM CDT Hyperlipidemia LDL goal <100 COLONOSCOPY Routine 08/13/2019 10:[address] CHEST/ABDOMEN/PELVIS W CONTRAST STAT 02/18/2018 12:20 PM CDT HEPATITIS C SCREEN REFLEX TO HCV RNA QUANT AND GENOTYPE Routine 08/10/2017 11:22 AM WHEEL PRESS CLERK Encounter for routine adult health examination without abnormal findings FECAL COLORECTAL CANCER SCREEN FIT Routine 06/25/2013 11:31 AM CDT Screen for colon cancer UA MACROSCOPIC WITH REFLEX TO MICRO Routine 10/13/2010 4:49 PM WHEEL PRESS CLERK HTN (hypertension) from Last 3 Months or Most Recently Relevant to Health Maintenance Results * (ABNORMAL) Drug Abuse Screen Panel 13, Urine (Pain Care Package) - lab collect (11/10/2021 10:09 AMCST) Cannabinoids (69-eso-3-carboxy -9-THC) Not Detected Not Detected, Indeterminate 11/10/2021 10:28 AM WHEEL PRESS CLERK [facility] Comment:Cutoff for a negativ e cannabinoid is 50 ng/mL or less. Phencyclidine Not Detected Not Detected, Indeterminate 11/10/2021 10:28 AM WHEEL PRESS CLERK [facility] Comment:Cutoff for a negativ e PCP is 25 ng/mL or less. Cocaine (Benzoylecgonine) Not Detected Not Detected, Indeterminate 11/10/2021 10:28 AM WHEEL PRESS CLERK [facility] Comment:Cutoff for a negativ e cocaine is 150 ng/ml or less. Methamphetamine (d-Methamphetamin e) Not Detected Not Detected, Indeterminate 11/10/2021 10:28 AM WHEEL PRESS CLERK [facility] Comment:Cutoff for a negativ e methamphetamine is 500 ng/ml or less. Opiates (Morphine) Not Detected Not Detected, Indeterminate 11/10/2021 10:28 AM WHEEL PRESS CLERK [facility] Comment:Cutoff for a negativ e opiate is 100 ng/ml or less. Amphetamine (d-Amphetamine) Not Detected Not Detected, Indeterminate 11/10/2021 10:28 AM WHEEL PRESS CLERK [facility] Comment:Cutoff for a negativ e amphetamine is 500 ng/mL or less. Benzodiazepines (Nordiazepam) Not Detected Not Detected, Indeterminate 11/10/2021 10:28 AM WHEEL PRESS CLERK [facility] Comment:Cutoff for a negativ e benzodiazepine is 150 ng/ml or less. Tricyclic Antidepressants (Desipramine) Not Detected Not Detected, Indeterminate 11/10/2021 10:28 AM WHEEL PRESS CLERK [facility] Comment:Cutoff for a negativ e tricyclic antidepressant is 300 ng/ml or less. Methadone Not Detected Not Detected, Indeterminate 11/10/2021 10:28 AM WHEEL PRESS CLERK [facility] Comment:Cutoff for a negativ e methadone is 200 ng/ml or less. Barbiturates (Butalbital) Not Detected Not Detected, Indeterminate 11/10/2021 10:28 AM WHEEL PRESS CLERK [facility] Comment:Cutoff for a negativ e barbituate is 200 ng/ml or less. Oxycodone Detected(A ) Not Detected, Indeterminate 11/10/2021 10:28 AM WHEEL PRESS CLERK [facility] Comment: Cutoff for a positive oxycodone is greater than 100 ng/ml. This is an unconfirmed screening result to be used for medical purposes only. Propoxyphene (Norpropoxyphene) Not Detected Not Detected, Indeterminate 11/10/2021 10:28 AM WHEEL PRESS CLERK [facility] Comment:Cutoff for a negativ e propoxyphene is 300 ng/ml or less. Buprenorphine Not Detected Not Detected, Indeterminate 11/10/2021 10:28 AM WHEEL PRESS CLERK [facility] Comment:Cutoff for a negativ e buprenorphine is 10 ng/ml or less. Urine MID-STREAM URINE SPECIMEN / Unknown Non-blood Collection / Unknown 11/10/2021 10:09 AM WHEEL PRESS CLERK 11/10/2021 10:09 AM WHEEL PRESS CLERK Maya Goyal MD LAB - URINE ORDERABL ES Performing Organization Address [facility]/ZIP Co de Phone Number [facility] [address], [address] [place] [address], [place] [phone] * (ABNORMAL) Albumin Random Urine Quantitative with Creat Ratio (11/10/2021 10:09 AM WHEEL PRESS CLERK) Creatinine Urine mg/dL 74 mg/dL 11/11/2021 11:04 AM WHEEL PRESS CLERK [facility] Albumin Urine mg/L 14 mg/L 11/11/2021 11:04 AM WHEEL PRESS CLERK [facility] Albumin Urine mg/g Cr 18.92(H) 0.00 - 17.00 mg/g Cr 11/11/2021 11:04 AM WHEEL PRESS CLERK [facility] Urine MID-STREAM URINE SPECIMEN / Unknown Non-blood Collection / Unknown 11/10/2021 10:09 AM WHEEL PRESS CLERK 11/10/2021 10:09 AM WHEEL PRESS CLERK Maya Goyal MD LAB - URINE ORDERABL ES [facility] [address] Lab (no room number, 1st floor of clinic) [place] [address], [place] [phone] * (ABNORMAL) Hemoglobin A1c (11/10/2021 10:01 AM WHEEL PRESS CLERK) Hemoglobin A1C 6.6(H) 0.0 - 5.6 % 11/10/2021 10:26 AM WHEEL PRESS CLERK [facility] Comment: Normal <5.7% Prediabetes 5.7-6.4% ?? Diabetes 6.5% or higher Note: Adopted from ADA consensus guidelines. Blood BLOOD SPECIMEN / Unknown Venipuncture / Unknown 11/10/2021 10:01 AM WHEEL PRESS CLERK 11/10/2021 10:02 AM WHEEL PRESS CLERK Maya Goyal MD LAB - BLOOD ORDERABL ES [place] [facility] [address], [address] [place] [address], [facility] [phone] * (ABNORMAL) Basic metabolic panel (Ca, Cl, CO2, Creat, Gluc, K, Na, BUN) (11/10/2021 10:01 AM WHEEL PRESS CLERK) Sodium 131(L) 133 - 144 mmol/L 11/11/2021 8:39 AM WHEEL PRESS CLERK [facility] Potassium 4.8 3.4 - 5.3 mmol/L 11/11/2021 8:39 AM WHEEL PRESS CLERK [facility] Chloride 96 94 - 109 mmol/L 11/11/2021 8:39 AM WHEEL PRESS CLERK [facility] Carbon Dioxide (CO2) 22 20 - 32 mmol/L 11/11/2021 8:39 AM WHEEL PRESS CLERK [facility] Anion Gap 13 3 - 14 mmol/L 11/11/2021 8:39 AM WHEEL PRESS CLERK [facility] Urea Nitrogen 11 7 - 30 mg/dL 11/11/2021 8:39 AM WHEEL PRESS CLERK [facility] Creatinine 0.92 0.66 - 1.25 mg/dL 11/11/2021 8:39 AM WHEEL PRESS CLERK [facility] Calcium 8.9 8.5 - 10.1 mg/dL 11/11/2021 8:39 AM WHEEL PRESS CLERK [facility] Glucose 135(H) 70 - 99 mg/dL 11/11/2021 8:39 AM WHEEL PRESS CLERK [facility] GFR Estimate >90 >60 mL/min/1.7 3m2 11/11/2021 8:39 AM WHEEL PRESS CLERK [facility] Comment:Effective August 252020 eGFRcr in adults is calculated using the 2020 CKD-EPI creatinine equation which includes age and gender (Donis et al., NEJM, DOI: 10.1056/DPSCrh0328412) Blood BLOOD SPECIMEN / Unknown Venipuncture / Unknown 11/10/2021 10:01 AM WHEEL PRESS CLERK 11/10/2021 10:02 AM WHEEL PRESS CLERK Maya Goyal MD LAB - BLOOD ORDERABL ES [facility] [address] Lab (no room number, 1st floor of clinic) [place] [address], [facility] [phone] * EYE EXAM - HIM SCAN (05/20/2021 12:00 AM CDT) RETINOPATHY NEGATIVE 05/20/2021 Narrative Kya Riley - 05/20/2021 12:00 AM CDT DIABETIC EYE EXAM [facility] Provider Outside OTHER * (ABNORMAL) Lipid panel [...] LAB - BLOOD ORDERABL ES [facility] [address] Lab (no room number, 1st floor of clinic) [place] [address], [facility] [phone] * COLONOSCOPY (08/13/2019 10:22 AM WHEEL PRESS CLERK) [facility] COLONOSCOPY [facility] Patient Name: Rafa Hickey ?Procedure Date: 08/13/2019 [...] # [id number], [place] ?# 221, SN # [id number] was introduced through the anus ?and advanced [...] history of colonic polyps CPT copyright 2018 [employer]. All rights reserved. The codes documented in this report are preliminary and upon blocker polishing review may be revised to meet current compliance requirements. Electronically signed by Karlo Luis MD __ Karlo Luis MD 08/13/2019 10:51:03 AM I was physically present for the entire viewing portion of the exam. Karlo Luis MD Number of Addenda: 0 Note Initiated On: 08/13/2019 10:22 AM MRN: ?[id number] Procedure Date: ? 08/13/2019 10:22:02 AM Scope Withdrawal Time: 0 hours 6 minutes 13 seconds Total Procedure Duration: 0 hours 18 minutes 55 seconds Estimated Blood Loss: ? Scope In: 10:25:38 AM Scope Out: 10:44:33 AM RADIOLOGY RESULTS 08/13/2019 10:2 2 AM WHEEL PRESS CLERK Maya Goyal MD PROCEDURES RADIOLOGY RESULTS * [...] liver. LOLIS BEAR MD Homar Vega MD G CT ORDERABLES * Hepatitis C Screen Reflex to HCV RNA Quant and Genotype (08/10/2017 11:22 AM WHEEL PRESS CLERK) Hepatitis C Antibody Nonreactive NR^Nonre active 08/13/2017 10:46 AM WHEEL PRESS CLERK [facility] Comment: Assay performance characteristics have not been established for newborns, infants, and children Blood specimen (specimen) 08/10/2017 11:22 AM WHEEL PRESS CLERK 08/10/2017 11:23 AM WHEEL PRESS CLERK Maya Goyal MD LAB - BLOOD ORDERABL ES [facility] [address] [address] * Fecal colorectal cancer screen (FIT) (06/25/2013 11:31 AM CDT) Occult Blood Scn FIT Negative NEG [facility] Stool specimen (specimen) 06/25/2013 11:31 AM CDT 06/25/2013 11:32 AM CDT Maya Goyal MD LAB - STOOLS ORDERAB LES [facility] * (ABNORMAL) UA macroscopic with reflex to micro (10/13/2010 4:49 PM WHEEL PRESS CLERK) Color Urine Yellow [facility] Appearance Urine Clear [facility] Glucose Urine Negative NEG mg/dL [facility] Bilirubin Urine Negative NEG [facility] Ketones Urine Negative NEG mg/dL [facility] Specific [place] Urine 1.015 1.003 - 1.035 [facility] Blood Urine Moderate(A) NEG [facility] pH Urine 5.5 5.0 - 7.0 pH [facility] Protein Albumin Urine Negative NEG mg/dL [facility] Urobilinogen Urine 0.2 0.2 - 1.0 EU/dL [facility] Nitrite Urine Negative NEG [facility] Leukocyte Esterase Urine Negative NEG [facility] Source Midstream Urine [facility] Urine specimen (specimen) 10/13/2010 4:49 PM WHEEL PRESS CLERK 10/13/2010 4:54 PM WHEEL PRESS CLERK Maya Goyal MD LAB - URINE ORDERABL ES Performing Organization Address City/[facility]/ZIP Co de Phone Number [facility] from Last 3 Months or Most Recently Relevant to Health Maintenance Advance Directives For more information, please contact: [phone] * Full Code (Latest Code Status on [...] 1:26 PM 09/12/2017 10:19 AM Care Teams Software Support Analyst Relationship Specialty Start Date End Date No Ref-Primary, Physician PCP - General 11/15/[address] [address] Assigned PCP 10/18/23
--- OUTSIDE RECORDS SUMMARY | 2024-05-19 05:37 | XMS_ITS | Encounter Summary ---
Author Organization [place] Address [address] [place] [address]. [place] [address] Care Team Providers Care Master Fire Control Technician Name Role Phone Maya Goyal MD Primary Care Provider [phone] Maya Goyal MD Unavailable Erlin Delcid MD Unavailable [phone] Mehdi Bass DPQuita Unavailable Kae Whipple [facility] Unavailable Maya Goyal MD Unavailable No Ref-Primary, Physician Primary Care Provider Mehdi Bass DPM Unavailable [facility] Unavailable Encounter Details Date Type Department Care Team (Latest Contact Info) Description 05/16/2021 Historic Results Social History Tobacco Use Types Packs/Day Years [...] Sex Assigned at Male 09/17/2018 5:00 PM OUTBOUND SALES SPECIALIST Gender Identity Male 09/17/2018 5:00 PM OUTBOUND SALES SPECIALIST Sexual Orientation Straight 09/17/2018 5: 00 PM OUTBOUND SALES SPECIALIST COVID-19 Exposure Response Date Recorded In the last month, have you been in contact with someone who was confirmed or suspected to have Coronavirus / COVID-19? No / Unsure 05/16/2021 2:31 PM CDT documented as of this encounter Plan of Treatment Not on file documented as of this encounter Visit Diagnoses Not on filedocumented in this encounter Additional Health Concerns Assessment Noted Time PHQ-9 Depression Total Score: 10 021 2:58 PM CDT documented as of this encounter Care Teams Master Fire Control Technician Relationship Specialty Start Date End Date Maya Goyal MD [address] [place] [address] PCP - General 05/03/04 11/14/22 No Ref-Primary, Physician PCP - General 11/15/22 Maya Goyal MD [address] [place] [address] Assigned PCP 06/27/12 10/17/23 Erlin Delcid MD [address] [address] Assigned Surgical Provider 09/12/20 Mehdi Bass DPM [address] [facility] [address] [place] [address] Assigned Musculoskeletal Provider 08/14/21 10/27/22 Kae Whipple [facility] [address] [place] [address] Assigned MTM Pharmacist 03/18/22 Maya Goyal MD [address] [place] [address] Assigned Pain Medication Provider 10/02/22 03/23/23 Mehdi Bass DPM [address] [facility] [address] [place], [place] [address] Assigned Surgical Provider 10/28/22 [facility] [address] [place], [place] [address] Assigned PCP 10/18/23 documented as of this encounter
--- OUTSIDE RECORDS SUMMARY | 2024-05-19 05:37 | XMS_ITS | Encounter Summary ---
Author Organization [place] Address [address] [place] [address]. [place] [address] Care Team Providers Care Traffic Chief Name Role Phone Maya Goyal MD Primary Care Provider [phone] Maya Goyal MD Unavailable Erlin Delcid MD Unavailable Mehdi Bass DPM Unavailable [phone] Kae Whipple [facility] Unavailable [phone] Maya Goyal MD Unavailable No Ref-Primary, Physician Primary Care Provider Mehdi Bass DPM Unavailable [facility] Unavailable Reason for Visit * Reason Comments Medication Refill Encounter Details Date Type Department Care Team (Late st Contact Info) Description 07/20/2021 [facility] [address] [place] [address] Maya Goyal MD [address] [place] [address] Medication Refill Social History Tobacco [...] Sex Assigned at Male 09/17/2018 5:00 PM AUTOGLAZIER Gender Identity Male 09/17/2018 5:00 PM AUTOGLAZIER Sexual Orientation Straight 09/17/2018 5: 00 PM AUTOGLAZIER documented as of this encounter Miscellaneous Notes * Telephone Encounter - Rukhsana Yo RN - 07/20/2021 3:55 PM CDT Prescription approved per [facility] Refill Protocol. * Telephone Encounter - Jenn Strong - 07/20/2021 3:43 PM CDT Pt calling to expedite refill request attached. He will be going out of town on Sunday and did not realized he was due for a refill. Please advise. Thanks. documented in this encounter Plan of Treatment Not on file documented as of this encounter Visit Diagnoses Diagnosis Type 2 diabetes mellitus with stage 1 chronic kidney disease, without long-term current use of insulin (H) documented in this encounter Additional Health Concerns Assessment Noted Time PHQ-9 Depression Total Score: 10 021 2:58 PM CDT documented as of this encounter Care Teams Traffic Chief Relationship Specialty Start Date End Date Maya Goyal MD [address] [place] [address] PCP - General 05/03/04 11/14/22 No Ref-Primary, Physician PCP - General 11/15/22 Maya Goyal MD [address] [place] [address] Assigned PCP 06/27/12 10/17/23 Erlin Delcid MD [address] [address] Assigned Surgical Provider 09/12/20 Mehdi Bass DPM [address] [facility] [address] [place] [address] Assigned Musculoskeletal Provider 08/14/21 10/27/22 Kae Whipple [facility] [address] [place] [address] Assigned MTM Pharmacist 03/18/22 Maya Goyal MD [address] [facility] [address] [place] [address] Assigned Pain Medication Provider 10/02/22 03/23/23 [place] DPM [address] [facility] [address] [place] [address] Assigned Surgical Provider 10/28/22 [facility] [address] [place], [place] [address] Assigned PCP 10/18/23 documented as of this encounter
--- OUTSIDE RECORDS SUMMARY | 2024-05-19 05:38 | XMS_ITS | Encounter Summary ---
Author Organization [place] Address [address] [place] [address]. [place] [address] Care Team Providers Care Masonry Installer Name Role Phone Maya Goyal MD Primary Care Provider [phone] Eva Mckenna RN Unavailable [phone] Maya Goyal MD Unavailable Maya Goyal MD Unavailable Mehdi Sen MD Unavailable [phone] Erlin Delcid MD Unavailable Elicia Bedoya [facility] Unavailable [phone] Kae Whipple [facility] Unavailable [phone] Mehdi Bass DPM Unavailable [phone] Kae Whipple [facility] Unavailable [phone] Maya Goyal MD Unavailable No Ref-Primary, Physician Primary Care Provider Mehdi Bass DPM Unavailable [phone] [facility] Unavailable Encounter Details Date Type Department Care Team (Late st Contact Info) Description 10/17/2010 [facility] Medical Advice [facility] [address] [place] [place] [address] Maya Goyal MD [address] [place] [address] [id number] Social History Tobacco Use Types Packs/Day Years Used Date Smoking Tobacco: Every Day Cigarettes 0.5 20 Alcohol Use Standard Drinks/Week Comments Yes 0 (1 standard drink = 0.6 oz pur e alcohol) Social once every 3 months Sex and Gender Information Value Date Recorded Sex Assigned at Male 09/17/2018 5:00 PM WARP PREPARER Gender Identity Male 09/17/2018 5:00 PM WARP PREPARER Sexual Orientation Straight 09/17/2018 5: 00 PM WARP PREPARER documented as of this encounter Plan of Treatment Not on file documented as of this encounter Visit Diagnoses Not on filedocumented in this encounter Additional Health Concerns Infection Onset Date Last Indicated Resolved Time COVID-19 08/27/2020 08/27/2020 09/17/2020 11:4 0 PM WARP PREPARER documented as of this encounter Care Teams Masonry Installer Relationship Specialty Start Date End Date Maya Goyal MD [address] [place] [address] PCP - General 05/03/04 11/14/22 Maya Goyal MD [address] [place] [address] [id number] PCP - Assigned PCP 10/22/09 11/26/18 No Ref-Primary, Physician PCP - General 11/15/22 Eva Mckenna RN [facility] Billboard Poster Primary Care - CC 02/19/18 Maya Goyal MD [address] [place] [address] 997337 Assigned PCP 06/27/12 10/17/23 Mehdi Sen MD [address] [place] [address] Assigned Musculoskeletal Provider 07/16/20 12/18/20 Erlin Delcid MD [address] [address] Assigned Surgical Provider 09/12/20 Elicia Bedoya, [facility] [address] [place] [address] [address]12 [place] [address] Pharmacist Pharmacist 11/09/20 12/06/20 Kae Whipple [facility] [address] [place] [address] Pharmacist Pharmacist 11/30/20 12/06/20 Mehdi Bass DPM [id number] [place] [address] Assigned Musculoskeletal Provider 08/14/21 10/27/22 Kae Whipple [facility] [address] [place] [address] Assigned MTM Pharmacist 03/18/22 Maya Goyal MD [address] [address] Assigned Pain Medication Provider 10/02/22 03/23/23 Mehdi Bass DPM [id number] [place] [address] [place] [address] Assigned Surgical Provider 10/28/22 [facility] [address] [place] [address] Assigned PCP 10/18/23 documented as of this encounter
--- OUTSIDE RECORDS SUMMARY | 2024-05-19 05:38 | XMS_ITS | Encounter Summary ---
Author Organization [place] Address [address] [place] [address]. [place] [address] Care Team Providers Care Olive Grower Name Role Phone Maya Goyal MD Primary Care Provider [phone] Eva Mckenna RN Unavailable [phone] Maya Goyal MD Unavailable Maya Goyal MD Unavailable Mehdi Sen MD Unavailable [phone] Erlin Delcid MD Unavailable [phone] Elicia Bedoya [facility] Unavailable [phone] Kae Whipple [facility] Unavailable [phone] Mehdi Bass DPM Unavailable [phone] Kae Whipple [facility] Unavailable [phone] Maya Goyal MD Unavailable No Ref-Primary, Physician Primary Care Provider Mehdi Bass DPM Unavailable [phone] [facility] Unavailable Encounter Details Date Type Department Care Team (Late st Contact Info) Description 08/26/2006 [facility] [address] [place] [address] Maya Goyal MD [address] [place] [address] [id number] Social History Tobacco Use Types Packs/Day Years Used Date Smoking Tobacco: Every Day Cigarettes 0.5 20 Alcohol Use Standard Drinks/Week Comments Yes 0 (1 standard drink = 0.6 oz pur e alcohol) Social once every 3 months Sex and Gender Information Value Date Recorded Sex Assigned at Male 09/17/2018 5:00 PM RETAIL SERVICES PROFESSIONAL Gender Identity Male 09/17/2018 5:00 PM RETAIL SERVICES PROFESSIONAL Sexual Orientation Straight 09/17/2018 5: 00 PM RETAIL SERVICES PROFESSIONAL documented as of this encounter Plan of Treatment Not on file documented as of this encounter Visit Diagnoses Not on filedocumented in this encounter Additional Health Concerns Infection Onset Date Last Indicated Resolved Time COVID-19 08/27/2020 08/27/2020 09/17/2020 11:4 0 PM RETAIL SERVICES PROFESSIONAL documented as of this encounter Care Teams Olive Grower Relationship Specialty Start Date End Date Maya Goyal MD [address] [place] [address] PCP - General 05/03/04 11/14/22 Maya Goyal MD [address] [place] [address] 799837 PCP - Assigned PCP 10/22/09 11/26/18 No Ref-Primary, Physician PCP - General 11/15/22 Eva Mckenna RN Clinic [employer] Silverware Salesperson Primary Care - CC 02/19/18 Maya Goyal MD [address] [place] [address] 438227 Assigned PCP 06/27/12 10/17/23 Mehdi Sen MD [address] [place] [address] Assigned Musculoskeletal Provider 07/16/20 12/18/20 Erlin Delcid MD [address] [address] Assigned Surgical Provider 09/12/20 Elicia Bedoya, [facility] [address] [place] [address] 812 [place] [address] Pharmacist Pharmacist 11/09/20 12/06/20 Kae Whipple [facility] [address] [place] [address] Pharmacist Pharmacist 11/30/20 12/06/20 Mehdi Bass DPM [id number] [place] [address] Assigned Musculoskeletal Provider 08/14/21 10/27/22 Kae Whipple [facility] [address] [place] [address] Assigned MTM Pharmacist 03/18/22 Maya Goyal MD [address] [address] Assigned Pain Medication Provider 10/02/22 03/23/23 Mehdi Bass DPM [id number] [place] [address] [place] [address] Assigned Surgical Provider 10/28/22 [facility] [address] [place] [address] Assigned PCP 10/18/23 documented as of this encounter
--- OUTSIDE RECORDS SUMMARY | 2024-05-19 05:38 | XMS_ITS | Encounter Summary ---
Author Organization [place] Address [address] [place] [address] Care Team Providers Care Account Information Clerk Name Role Phone Maya Goyal MD Primary Care Provider [phone] Maya Goyal MD Unavailable Mehdi Sen MD Unavailable [phone] Erlin Delcid MD Unavailable [phone] Elicia Bedoya [facility] Unavailable [phone] Kae Whipple [facility] Unavailable [phone] Mehdi Bass DPM Unavailable [phone] Kae Whipple [facility] Unavailable [phone] Maya Goyal MD Unavailable No Ref-Primary, Physician Primary Care Provider Mehdi Bass DPM Unavailable [phone] [facility] Unavailable Reason for Visit * Reason Onset Date Comments MyChart Communication 09/29/2020 Encounter Details Date Type Department Care Team (Late st Contact Info) Description 09/29/2020 [facility] [address] [place] [address] Maya Goyal MD [address] [place] [address] MyChart Communication Social History Tobacco Use Types [...] Sex Assigned at Male 09/17/2018 5:00 PM REIMBURSEMENT COUNSELOR Gender Identity Male 09/17/2018 5:00 PM REIMBURSEMENT COUNSELOR Sexual Orientation Straight 09/17/2018 5: 00 PM REIMBURSEMENT COUNSELOR COVID-19 Exposure Response Date Recorded In the last month, have you been in contact with someone who was confirmed or suspected to have Coronavirus / COVID-19? Yes 09/07/2020 1:45 PM REIMBURSEMENT COUNSELOR documented as of this encounter Miscellaneous Notes * Telephone Encounter - Rukhsana Yo RN - 09/29/2020 12:06 PM CST My chart message sent by patient. My chart message sent to patient. BURSEMENT COUNSELOR * Telephone Encounter - Rukhsana Yo RN - 09/29/2020 11:34 AM CST My chart message sent by patient. My chart message sent to patient. BURSEMENT COUNSELOR documented in this encounter Plan of Treatment Not on file documented as of this encounter Visit Diagnoses Not on filedocumented in this encounter Additional Health Concerns Assessment Noted Time PHQ-9 Depression Total Score: 10 04/15/ 020 8:55 AM CDT documented as of this encounter Care Teams Account Information Clerk Relationship Specialty Start Date End Date Maya Goyal MD [address] [place] [address] PCP - General 05/03/04 11/14/22 No Ref-Primary, Physician PCP - General 11/15/22 Maya Goyal MD [address] [facility] [address] [place] [address] Assigned PCP 06/27/12 10/17/23 Mehdi Sen MD [address] [place], [place] 69[address] Assigned Musculoskeletal Provider 07/16/20 12/18/20 Erlin Delcid MD [address] [address] Assigned Surgical Provider 09/12/20 Elicia Bedoya [facility] [address] [place] [address] 812 [place], [place] [address] Pharmacist Pharmacist 11/09/20 12/06/20 Kae Whipple [facility] [address] [place], [place] [address] Pharmacist Pharmacist 11/30/20 12/06/20 Meh[place] D[place] [address] [facility] [address] [place], [place] [address] Assigned Musculoskeletal Provider 08/14/21 10/27/22 Kae Whipple [facility] [address] [place], [place] [address] Assigned MTM Pharmacist 03/18/22 Maya Goyal MD [address] [facility] [address] [place], [place] 8[address] Assigned Pain Medication Provider 10/02/22 03/23/23 Mehdi Bass DPM [address] [facility] [address] [place] [address] Assigned Surgical Provider 10/28/[address] [address] Assigned PCP 10/18/23 documented as of this encounter
--- OUTSIDE RECORDS SUMMARY | 2024-05-19 05:38 | XMS_ITS ---
Author Organization [facility] Address [address] [place] [address] [address] [place] [address] Care Team Providers Care Linoleum Tile Floor Layer Name Role Phone Caryl Shi Primary Care Provider Karlo Hewitt [phone] Catia Swift MD Unavailable Unavailable REASON FOR VISIT r SCS ? Encounters Encounter Location Date Provider Diagnosis [facility] [address] [place] [address] [address] [place] [address] 04/23/2024 Karlo Ortiz Plan Of Treatment No Information Progress Notes * Rafa RIVAS JrDOB: (63 yo M)Acc No.[id number]:04/23/2024 Patient:?Rafa Rivas :1960???Age:63 Y???Sex:Male Phone: Address:[address] [place] [address] * true * Date:? Generated for Andi fields/Mona/eTransmitting on:?05/19/2024 05:38 AM CDT
--- OUTSIDE RECORDS SUMMARY | 2024-05-19 05:38 | XMS_ITS | Encounter Summary ---
Author Organization [facility] Address [address] [place] [address]. [place] [address] Care Team Providers Care Annual Giving Manager Name Role Phone Maya Goyal MD Primary Care Provider [phone] Maya Goyal MD Unavailable Mehdi Sen MD Unavailable [phone] Erlin Delcid MD Unavailable [phone] Elicia Bedoya [facility] Unavailable [phone] Kae Whipple [facility] Unavailable Mehdi Bass DPM Unavailable [phone] Kae Whipple [facility] Unavailable Maya Goyal MD Unavailable No Ref-Primary, Physician Primary Care Provider Mehdi Bass DPM Unavailable [phone] [facility] Unavailable Reason for Visit * Reason Onset Date Comments Procedure 03/18/2019 Lumbar Epidural injection Encounter Details Date Type Department Care Team (Late st Contact Info) Description 03/18/2019 [facility] [place] [address] [place] [address] [facility] Procedure (Lumbar Epidural injection ) Social History Tobacco Use Types Packs/Day Years Used Date Smoking Tobacco: Every Day Cigarettes 0.5 20 Started: 09/06/1997; Last attempted to quit: 09/06/2017 Smokeless Tobacco: Never Alcohol Use Standard Drinks/Week Comments Yes 0 (1 standard drink = 0.6 oz pure alcohol) No alcohol since 08/31/2018 - Currently in program PHQ-2 Answer Date Recorded PHQ-2 Score 0 10/01/2018 Sex and Gender Information Value Date Recorded Sex Assigned at Male 09/17/2018 5:00 PM SURGEON CHIEF Gender Identity Male 09/17/2018 5:00 PM SURGEON CHIEF Sexual Orientation Straight 09/17/2018 5: 00 PM SURGEON CHIEF documented as of this encounter Miscellaneous Notes * Telephone Encounter - Giovana Domínguez - 03/18/2019 3:41 PM CDT Pre-screening Questions for Radiology Injections: Injection to be done at which interventional clinic site? [facility] Instruct patient to arrive as directed prior to the scheduled appointment time: ?? [place]: 30 minutes before ?? [place]: 30 minutes before; if IV needed 1 hour before Procedure ordered by Dr. Ahumada Procedure ordered? [place]ESI ??? Transforaminal Cervical FANTASMA - Dr. Patricia Albarado ONLY What insurance would patient like us to bill for this procedure? [employer] ?? Worker's comp or MVA (motor vehicle accident) -Any injection DO NOT SCHEDULE and route to Jordyn Rodriguez. ?? [employer] insurance - For SI joint injections, DO NOT SCHEDULE and route Jordyn Rodriguez. ?? [employer] - Any injection besides hip/shoulder/knee joint DO NOT SCHEDULE and route to Jordyn Rodriguez.She will obtain PA and call pt back to schedule procedure or notify pt of denial. ?? [employer]-Route to Jordyn for review ?? IF SCHEDULING IN [place] AND NEEDS A PA, IT IS OKAY TO SCHEDULE. [place] HANDLES THEIR OWN PA'S AFTER THE PATIENT IS SCHEDULED. PLEASE SCHEDULE AT LEAST 1 WEEK OUT SO A PA CAN BE OBTAINED. Any chance of ? NO If YES, do NOT schedule and route to steno pool supervisor Is an marketing program coordinator needed? No Patient has a drive home? (mandatory) YES: Informed Is patient taking any blood thinners (plavix, coumadin, jantoven, warfarin, heparin, pradaxa or dabigatran )? No If hold needed, do NOT schedule, route to steno pool supervisor Is patient taking any aspirin products (includes Excedrin and Fiorinal)? No ?? If more than 325mg/day do NOT schedule; route to steno pool supervisor ?? For CERVICAL procedures, hold all aspirin products for 6 days. ?? Tell pt that if aspirin product is not held for 6 days, the procedure WILL BE cancelled. Does the patient have a bleeding or clotting disorder? No ?? If YES, okay to schedule AND route to RN nurse pool ?? For any patients with platelet count <100, must be forwarded to provider Is patient diabetic? No If YES, have them bring their glucometer. Does patient have an active infection or treated for one within the past week? No Is patient currently taking any antibiotics? No ?? For patients on chronic, preventative, or prophylactic antibiotics, procedures may be scheduled. ?? For patients on antibiotics for active or recent infection:antibiotic course must have been completed for 4 days Is patient currently taking any steroid medications? (i.e. Prednisone, Medrol) No ?? For patients on steroid medications, course must have been completed for 4 days Reviewed with patient: If you are started on any steroids or antibiotics between now and your appointment, you must contact us because the procedure may need to be cancelled. Yes Is patient actively being treated for cancer or immunocompromised? No If YES, do NOT schedule and route to steno pool supervisor Are you able to get on and off an exam table with minimal or no assistance? Yes If NO, do NOT schedule and route to steno pool supervisor Are you able to roll over and lay on your stomach with minimal or no assistance? Yes If NO, do NOT schedule and route to steno pool supervisor Any allergies to contrast dye, iodine, shellfish, or numbing and steroid medications? No If YES, route to steno pool supervisor AND add allergy information to appointment notes Allergies: No known allergies Has the patient had a flu shot or any other vaccinations within 7 days before or after the procedure. No Does patient have an MRI/CT? YES: (SI joint, hip injections, lumbar sympathetic blocks, and stellate ganglion blocks do not require an MRI) ?? Was the MRI done w/in the last 3 years? Yes ?? Was MRI done at [facility]? Yes ?? If not, where was it done? N/A ?? If MRI was not done at [facility], [facility] or [facility] do NOT schedule and route to nursing. If pt has an imaging disc, the injection may be scheduled but pt has to bring disc to appt. If they show up w/out disc the injection cannot be done Reminders (please tell patient if applicable): ?? Instructed pt to arrive 30 minutes early for IV start if this is for a cervical procedure, ALL sympathetic (stellate ganglion, hypogastric, or lumbar sympathetic block) and all sedation procedures(RFA, spinal cord stimulation trials). Not Applicable -IVs are not routinely placed for Dr. Eid cervical cases -Dr. Delong: IVs for cervical ESIs and cervical TBDs (not CMBBs/facet inj) ?? If NPO for sedation, informed patient that it is okay to take medications with sips of water (except if they are to hold blood thinners). Not Applicable *DO take blood pressure medication if it is prescribed* ?? If this is for a cervical FANTASMA, informed patient that aspirin needs to be held for 6 days. Not Applicable ?? For all patients not having spinal cord stimulator (SCS) trials or radiofrequency ablations (RFAs), informed patient: IV sedation is not provided for this procedure. If you feel that an oral anti- anxiety medication isneeded, you can discuss this further with your referring provider or primary care provider. The Pain Clinic provider will discuss specifics of what the procedure includes at your appointment. Most procedures last 10-20 minutes. We use numbing medications to help with any discomfort during the procedure. Not Applicable ?? Do not schedule procedures requiring IV placement in the first appointment of the day or first appointment after lunch. Do NOT schedule at 0745, 0815 or 1245. ?? For patients 85 or older we recommend having an adult stay w/ them for the remainder of the day. Does the patient have any questions? TIM Domínguez [facility] documented in this encounter Plan of Treatment Not on file documented as of this encounter Visit Diagnoses Not on filedocumented in this encounter Additional Health Concerns Infection Onset Date Last Indicated Resolved Time COVID-19 08/27/2020 08/27/2020 09/17/2020 11:4 0 PM SURGEON CHIEF Assessment Noted Time PHQ-9 Depression Total Score: 4 09/23/20 18 2:33 PM SURGEON CHIEF documented as of this encounter Care Teams Annual Giving Manager Relationship Specialty Start Date End Date Maya Goyal MD [address] [place] [address] PCP - General 05/03/04 11/14/22 No Ref-Primary, Physician PCP - General 11/15/22 Maya Goyal MD [address] [place] [address] Assigned PCP 06/27/12 10/17/23 Mehdi Sen MD [address] [place] [address] Assigned Musculoskeletal Provider 07/16/20 12/18/20 Erlin Delcid MD [address] [address] Assigned Surgical Provider 09/12/20 Elicia Bedoya [facility] [address] [place] [address] 8[address] [place] [address] Pharmacist Pharmacist 11/09/20 12/06/20 Kae Whipple [facility] [address] [place] [address] Pharmacist Pharmacist 11/30/20 12/06/20 Mehdi Bass DPM [address] [facility] [address] [place], [place] [address] Assigned Musculoskeletal Provider 08/14/21 10/27/22 Kae Whipple [facility] [address] [place] [address] Assigned MTM Pharmacist 03/18/22 Maya Goyal MD [address] [facility] 200 [place] [address] Assigned Pain Medication Provider 10/02/22 03/23/23 Mehdi Bass DPM [address] [facility] [address] [place], [place] [address] Assigned Surgical Provider 10/28/22 [facility] [address] [place], [place] [address] Assigned PCP 10/18/23 documented as of this encounter
--- OUTSIDE RECORDS SUMMARY | 2024-05-19 05:38 | XMS_ITS | Encounter Summary ---
Author Organization [facility] Address [address] [place] [address]. [place] [address] Care Team Providers Care Planning Official Name Role Phone Maya Goyal MD Primary Care Provider [phone] Eva Mckenna RN Unavailable [phone] Maya Goyal MD Unavailable Maya Goyal MD Unavailable Mehdi Sen MD Unavailable [phone] Erlin Delcid MD Unavailable [phone] Elicia Bedoya [facility] Unavailable [phone] Kae Whipple [facility] Unavailable Mehdi Bass DPM Unavailable [phone] Kae Whipple [facility] Unavailable [phone] Maya Goyal MD Unavailable No Ref-Primary, Physician Primary Care Provider Mehdi Bass DPM Unavailable [phone] [facility] [place] [facility] Unavailable Encounter Details Date Type Department Care Team (Latest Contact Info) Description 08/10/2017 Historic Results Social History Tobacco Use Types Packs/Day Years Used Date Smoking Tobacco: Every Day Cigarettes 0.5 20 Started: 12/01/1990; Last attempted to quit: 12/01/2010 Smokeless Tobacco: Never Comments:a pack a day Alcohol Use Standard Drinks/Week Comments Yes 14 (1 standard drink = 0.6 oz pu re alcohol) Sex and Gender Information Value Date Recorded Sex Assigned at Male 09/17/2018 5:00 PM MANIFEST/ORDER ORGANIZER PRINT ORDERS Gender Identity Male 09/17/2018 5:00 PM MANIFEST/ORDER ORGANIZER PRINT ORDERS Sexual Orientation Straight 09/17/2018 5: 00 PM MANIFEST/ORDER ORGANIZER PRINT ORDERS documented as of this encounter Plan of Treatment Not on file documented as of this encounter Visit Diagnoses Not on filedocumented in this encounter Additional Health Concerns Infection Onset Date Last Indicated Resolved Time COVID-19 08/27/2020 08/27/2020 09/17/2020 11:4 0 PM MANIFEST/ORDER ORGANIZER PRINT ORDERS Assessment Noted Time PHQ-9 Depression Total Score: 14 017 11:50 AM MANIFEST/ORDER ORGANIZER PRINT ORDERS documented as of this encounter Care Teams Planning Official Relationship Specialty Start Date End Date Maya Goyal MD [address] [place] [address] PCP - General 05/03/04 11/14/22 Maya Goyal MD [address] [place] [address] [id number] PCP - Assigned PCP 10/22/09 11/26/18 No Ref-Primary, Physician PCP - General 11/15/22 Eva Mckenna RN Clinic Lead Advisor Primary Care - CC 02/19/18 Maya Goyal MD [address] [place] [id number] Assigned PCP 06/27/12 10/17/23 Mehdi Sen MD [address] [place] [id number] Assigned Musculoskeletal Provider 07/16/20 12/18/20 Erlin Delcid MD [address] [place] [address] Assigned Surgical Provider 09/12/20 Elicia Bedoya, [facility] [address] [facility] [address] [place] [address] Pharmacist Pharmacist 11/09/20 12/06/20 Kae Whipple [facility] [address] [place] [address] Pharmacist Pharmacist 11/30/20 12/06/20 Mehid Bass DPM [address] [employer] [address] [place] [address] Assigned Musculoskeletal Provider 08/14/21 10/27/22 Kae Whipple [facility] [address] [place] [address] Assigned MTM Pharmacist 03/18/22 Maya Goyal MD [address] [facility] 200 [place] [address] Assigned Pain Medication Provider 10/02/22 03/23/23 Mehdi Bass DPM [address] [employer] [address] [place] [address] Assigned Surgical Provider 10/28/22 [facility] [place] [facility] [place] [address] [place] [address] Assigned PCP 10/18/23 documented as of this encounter
--- OUTSIDE RECORDS SUMMARY | 2024-05-19 05:38 | XMS_ITS | Encounter Summary ---
Author Organization [place] Address [address] [place] [address]. [place] [address] Care Team Providers Care Generation Technologist Name Role Phone Maya Goyal MD Primary Care Provider [phone] None Primary Care Provider UnavailEva Brannon RN Unavailable [phone] Maya Goyal MD Unavailable Maya Goyal MD Unavailable Mehdi Sen MD Unavailable [phone] Erlin Delcid MD Unavailable [phone] Elicia Bedoya [facility] Unavailable [phone] Kae Whipple [facility] Unavailable [phone] Mehdi Bass DPM Unavailable [phone] Kae Whipple [facility] Unavailable [phone] Maya Goyal MD Unavailable No Ref-Primary, Physician Primary Care Provider Mehdi Bass DPM Unavailable [phone] [facility] Unavailable Encounter Details Date Type Department Care Team (Late st Contact Info) Description 02/16/2003 [place] [address] [place] [address] Maya Goyal MD [address] [facility] [address] [place] [address] ER ENC (Primary Dx) Social History Tobacco Use Types Packs/Day Years Used Date Smoking Tobacco: Former Cigarettes 0.5 20 0 03/18/1999 - 03/18/2019 Smokeless Tobacco: Never Comments:using e-cigarette Alcohol Use Standard Drinks/Week Comments Yes 0 (1 standard drink = 0.6 oz pure alcohol) No alcohol since 08/31/2018 - Currently in program Sex and Gender Information Value Date Recorded Sex Assigned at Male 09/17/2018 5:00 PM CHILD CAREGIVER Gender Identity Male 09/17/2018 5:00 PM CHILD CAREGIVER Sexual Orientation Straight 09/17/2018 5: 00 PM CHILD CAREGIVER documented as of this encounter Progress Notes * 02/16/2003 11:59 PM CASSIE SYKES 00:00 Emergency Department Encounter-[facility] NEISHA HAWK () [Ente red: 00:00 Personal Financial Advisor ([facility])] CHIEF COMPLAINT: Ankle pain. 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 A rolling tool box rolled into his right medial ankle resulting in pain. He p resents now for evaluation. PAST MEDICAL HISTORY: Hypertension and hypercholesterolemia. CURRENT MED ICATIONS: Lotrel, Zocor and gemfibrozil. ALLERGIES: No known allergies. SOCIAL HISTORY: The patieverton zavala works for [email or web address] as above. He is a one pack per day smoker. No regular alcohol use. No history of illicit drug use. REVIEW OF SYSTEMS: As above. Otherwise negative. PHYSICAL EXAMINATI ON: General exam: This is a 42 year old male sitting upright in bed. He is awake, alert and intera ctive. Initial vital signs: Blood pressure 127/81, heart rate 81, respiratory rate 18 and temperatu re of 97.8. Oxygen saturation 99 percent on room air. Musculoskeletal exam: The patient has tendern ess to palpation over the posterior medial malleolus of the right ankle. No evidence for tenderness is noted on the skeletal exam. CMS is intact distally. He does have ecchymosis overlying the site o f injury. No other signs of trauma. Minimal swelling. Neurological examination: The patient is aw darnell, alert and appropriate. No gross deficits noted distally. Skin: Warm and dry and as above. [facility] DEPARTMENT COURSE AND TREATMENT: The patient was seen and examined at 0430 hours. Following m y initial evaluation I did have a right ankle x-ray obtained. I interpreted that film as demonstrati ng no evidence for fracture. I reviewed this with the patient and at this time it appears the patien t has experienced more of a contusion than anything else. DISCHARGE DIAGNOSIS: Right ankle contusion . DISCHARGE PLAN: 1. Rest, ice and elevation. 2. Ibuprofen bouk-sll-[id number] prn. 3. Work restricti ons as a seated job for the next two days with minimal walking and then return to full work. _ NEISHA HAWK MD Electronically filed by Stella Paul 02/26/2003 1:49 PM documented in this encounter Plan of Treatment Not on file documented as of this encounter Visit Diagnoses Diagnosis ER ENC- Primary documented in this encounter Additional Health Concerns Infection Onset Date Last Indicated Resolved Time COVID-19 08/27/2020 08/27/2020 09/17/2020 11:4 0 PM CHILD CAREGIVER documented as of this encounter Care Teams Generation Technologist Relationship Specialty Start Date End Date Maya Goyal MD [address] [place] [address] PCP - General 05/03/04 11/14/22 None PCP - General 12/01/02 05/02/04 Maya Goyal MD [address] [place] [address] PCP - Assigned PCP 10/22/09 11/26/18 No Ref-Primary, Physician PCP - General 11/15/22 Eva Mckenna RN Clinic Food And Nutrition Services Supervisor Primary Care - CC 02/19/18 Maya Goyal MD [address] [place] [address] Assigned PCP 06/27/12 10/17/23 Mehdi Sen MD [address] [place] [address] Assigned Musculoskeletal Provider 07/16/20 12/18/20 Erlin Delcid MD [address] [address] Assigned Surgical Provider 09/12/20 Elicia Bedoya [facility] [address] [place] [address] 812 [place] [address] Pharmacist Pharmacist 11/09/20 12/06/20 Kae Whipple [facility] [address] [place] [address] Pharmacist Pharmacist 11/30/20 12/06/20 Mehdi Bass DPM [facility] [employer] [address] [address] Assigned Musculoskeletal Provider 08/14/21 10/27/22 Kae Whipple [facility] [address] [place] [address] Assigned MTM Pharmacist 03/18/22 Maya Goyal MD [address] [address] Assigned Pain Medication Provider 10/02/22 03/23/23 Mehdi Bass DPM [address] [facility] [address] [place] [address] Assigned Surgical Provider 10/28/[address] [address] Assigned PCP 10/18/23 documented as of this encounter
--- OUTSIDE RECORDS SUMMARY | 2024-05-19 05:38 | XMS_ITS | Encounter Summary ---
Author Organization [place] Address [address] [place] [address]. [place] [address] Care Team Providers Care Auto Body Worker Name Role Phone Maya Goyal MD Primary Care Provider [phone] Eva Mckenna RN Unavailable [phone] Maya Goyal MD Unavailable Maya Goyal MD Unavailable Mehdi Sen MD Unavailable [phone] Erlin Delcid MD Unavailable [phone] Elicia Bedoya [facility] Unavailable [phone] Kae hWipple [facility] Unavailable Mehdi Bass DPM Unavailable [phone] Kae Whipple [facility] Unavailable [phone] Maya Goyal MD Unavailable No Ref-Primary, Physician Primary Care Provider Mehdi Bass DPM Unavailable [phone] [facility] Unavailable Encounter Details Date Type Department Care Team (Late st Contact Info) Description 08/29/2010 [facility] [address] [place] [address] Maya Goyal MD [address] [place] [address] BENIGN HYPERTENSION (Primary Dx) Social History Tobacco Use Types Packs/Day Years Used Date Smoking Tobacco: Every Day Cigarettes 0.5 20 Alcohol Use Standard Drinks/Week Comments Yes 0 (1 standard drink = 0.6 oz pur e alcohol) Social once every 3 months Sex and Gender Information Value Date Recorded Sex Assigned at Male 09/17/2018 5:00 PM CONTROL OPERATOR Gender Identity Male 09/17/2018 5:00 PM CONTROL OPERATOR Sexual Orientation Straight 09/17/2018 5: 00 PM CONTROL OPERATOR documented as of this encounter Plan of Treatment Not on file documented as of this encounter Visit Diagnoses Diagnosis BENIGN HYPERTENSION- Primary Essential hypertension, benign documented in this encounter Additional Health Concerns Infection Onset Date Last Indicated Resolved Time COVID-19 08/27/2020 08/27/2020 09/17/2020 11:4 0 PM CONTROL OPERATOR documented as of this encounter Care Teams Auto Body Worker Relationship Specialty Start Date End Date Maya Goyal MD [address] [place] [address] PCP - General 05/03/04 11/14/22 Maya Goyal MD [address] [place] [address] PCP - Assigned PCP 10/22/09 11/26/18 No Ref-Primary, Physician PCP - General 11/15/22 Eva Mckenna RN Clinic Production Supervisor Off Shift Primary Care - CC 02/19/18 Maya Goyal MD [address] [place] [address] Assigned PCP 06/27/12 10/17/23 Mehdi Sen MD [address] [place] [address] Assigned Musculoskeletal Provider 07/16/20 12/18/20 Erlin Delcid MD [address] [address] Assigned Surgical Provider 09/12/20 Elicia Bedoya, [facility] [address] [place] [address] 8[address] [place] [address] Pharmacist Pharmacist 11/09/20 12/06/20 Kae Whipple [facility] [address] [place] [address] Pharmacist Pharmacist 11/30/20 12/06/20 Mehdi Bass DPM [facility] [address] [address] Assigned Musculoskeletal Provider 08/14/21 10/27/22 Kae Whipple [facility] [address] [place] [address] Assigned MTM Pharmacist 03/18/22 Maya Goyal MD [address] [place] [address] Assigned Pain Medication Provider 10/02/22 03/23/23 Mehdi Bass DPM [facility] [address] [place] [address] Assigned Surgical Provider 10/28/22 [facility] [address] [place] [address] Assigned PCP 10/18/23 documented as of this encounter
--- OUTSIDE RECORDS SUMMARY | 2024-05-19 05:38 | XMS_ITS | Encounter Summary ---
Author Organization [facility] Address [address] [place] [address]. [place] [address] Care Team Providers Care Ceo & Co Founder Name Role Phone Maya Goyal MD Primary Care Provider [phone] None Primary Care Provider UnavailEva Brannon RN Unavailable [phone] Maya Goyal MD Unavailable Maya Goyal MD Unavailable Mehdi Sen MD Unavailable [phone] Erlin Delcid MD Unavailable [phone] Elicia Bedoya [facility] Unavailable [phone] Kae Whipple [facility] Unavailable [phone] Mehdi Bass DPM Unavailable [phone] Kae Whipple [facility] Unavailable [phone] Maya Goyal MD Unavailable No Ref-Primary, Physician Primary Care Provider Mehdi Bass DPM Unavailable [phone] [facility] Unavailable Encounter Details Date Type Department Care Team (Late st Contact Info) Description 03/10/[address] [address] Jonathan Casillas MD XXX RETIRED XXX [address] [place] [phone] Social History Tobacco Use Types Packs/Day Years Used Date Smoking Tobacco: Never Assessed Sex and Gender Information Value Date Recorded Sex Assigned at Male 09/17/2018 5:00 PM CONTROL SYSTEM COMPUTER SCIENTIST Gender Identity Male 09/17/2018 5:00 PM CONTROL SYSTEM COMPUTER SCIENTIST Sexual Orientation Straight 09/17/2018 5: 00 PM CONTROL SYSTEM COMPUTER SCIENTIST documented as of this encounter Plan of Treatment Not on file documented as of this encounter Visit Diagnoses Not on filedocumented in this encounter Additional Health Concerns Infection Onset Date Last Indicated Resolved Time COVID-19 08/27/2020 08/27/2020 09/17/2020 11:4 0 PM CONTROL SYSTEM COMPUTER SCIENTIST documented as of this encounter Care Teams Ceo & Co Founder Relationship Specialty Start Date End Date Maya Goyal MD [address] [place] [address] PCP - General 05/03/04 11/14/22 None PCP - General 12/01/02 05/02/04 Maya Goyal MD [address] [place] [id number] PCP - Assigned PCP 10/22/09 11/26/18 No Ref-Primary, Physician PCP - General 11/15/22 Eva Mckenna RN Clinic Application Programmer Analyst Primary Care - CC 02/19/18 Maya Goyal MD [address] [place] [address]117 Assigned PCP 06/27/12 10/17/23 Mehdi Sen MD [address] [place] [address] Assigned Musculoskeletal Provider 07/16/20 12/18/20 Erlin Delcid MD [address] [address] Assigned Surgical Provider 09/12/20 Elicia Bedoya, [facility] [address] [place] [address] [place] [address] Pharmacist Pharmacist 11/09/20 12/06/20 Kae Whipple [facility] [address] [place], [place] [address] Pharmacist Pharmacist 11/30/20 12/06/20 [place] [address] [address] Assigned Musculoskeletal Provider 08/14/21 10/27/22 Kae Whipple [facility] [address] [place], [place] [address] Assigned MTM Pharmacist 03/18/22 Maya Goyal MD [address] [id number] Assigned Pain Medication Provider 10/02/22 03/23/23 Mehdi Bass DPM [address] [employer] [address] [place], [place] [id number] Assigned Surgical Provider 10/28/22 [facility] [address] [place] [address] Assigned PCP 10/18/23 documented as of this encounter
--- OUTSIDE RECORDS SUMMARY | 2024-05-19 05:38 | XMS_ITS | Encounter Summary ---
Author Organization [facility] Address [address] [place] [address]. [place] [address] Care Team Providers Care Thermostat Repairer Name Role Phone Maya Goyal MD Primary Care Provider [phone] Primary Care Provider UnavailEva Brannon RN Unavailable [phone] Maya Goyal MD Unavailable Maya Goyal MD Unavailable Mehdi Sen MD Unavailable [phone] Erlin Delcid MD Unavailable [phone] Elicia Bedoya [facility] Unavailable [phone] aKe Whipple [facility] Unavailable [phone] Mehdi Bass DPM Unavailable [phone] Kae Whipple [facility] Unavailable [phone] Maya Goyal MD Unavailable No Ref-Primary, Physician Primary Care Provider Mehdi Bass DPM Unavailable [phone] [facility] Unavailable Encounter Details Date Type Department Care Team (Late st Contact Info) Description 01/25/2003 [place] [address] [place] [address] Maya Goyal MD [address] [facility] [address] [place] [address] ER ENCOUNTER (Primary Dx) Social History Tobacco Use Types Packs/Day Years Used Date Smoking Tobacco: Former Cigarettes 0.5 20 0 03/18/1999 - 03/18/2019 Smokeless Tobacco: Never Comments:using e-cigarette Alcohol Use Standard Drinks/Week Comments Yes 0 (1 standard drink = 0.6 oz pure alcohol) No alcohol since 08/31/2018 - Currently in program Sex and Gender Information Value Date Recorded Sex Assigned at Male 09/17/2018 5:00 PM SENIOR COURTROOM CLERK Gender Identity Male 09/17/2018 5:00 PM SENIOR COURTROOM CLERK Sexual Orientation Straight 09/17/2018 5: 00 PM SENIOR COURTROOM CLERK documented as of this encounter Progress Notes * 01/25/2003 11:59 PM CDTAddended by: CAMERON MURRY on: 02/03/2003,11:27 AM Modules accepted: Progress Notes 00: 00 Emergency Department Encounter-[facility] ERVIN () [Entered: 00:00 Transcri ption ([facility])] : 58 PRIMARY MD: Maya Goyal MD CHIEF COMPLAINT: Back pain. HISTORY OF THE PRESENT ILLNESS: This 41-year-old male was doing yard work yesterday. He was shoveling and was bent and twisted as he was shoveling. He felt a sharp twinge in the midsection of his low back. He jules s had increasing pain and has not been able to get comfortable, but he has had no bowel or bladder in continence. No loss of sensation, no loss of motor function. Lower extremities: No radicular pains. Three years ago he strained his back, but has had no problems since. His drove him here. He has tried Relafen without relief. PAST HISTORY: Hypertension, hypercholesterolemia. MEDICATIONS: Gemfibrozil, Zocor, and a blood pressure pill he cannot remember the name of. ALLERGIES: No known d rug allergies. SOCIAL HISTORY: [employer]. He is supposed to work tonight. He sm okes less than a pack per day. Occasional alcohol - 1 oz. of liquor per day. REVIEW OF SYSTEMS: Se e HPI; all other systems negative. OBJECTIVE: Temperature 98.9, heart rate 72, respiratory rate 16, blood pressure 157/99. GENERAL: He is alert and oriented times three. He transfers reasonably well but is stiff in doing so. He is overweight. BACK: Tender to palpation left and right of midline in the low back and just above the SI joint, no palpable spasm. He can flex and extend at the waist but significantly reduced. Sensation intact to light touch distally in his lower extremities. Active m otor function, somewhat limited by pain. Reflexes symmetrical, left and right at the patella and the ankle. Toes downgoing bilaterally. BACK: Somewhat loss of lumbar lordosis secondary to obesity. IMP RESSION: Low back strain. PLAN: He received Demerol 75 mg and Vistaril 50 mg IM and was improved w ith that. He will go home on ibuprofen 600 mg p.o. q.8 h. with food, Flexeril 10 mg p.o. q.8 h__ p.r .n.___(Q3) spasm. May add (Q4) Tylenol #3 one to two p.o. q.4-6 h. p.r.n. pain unrelieved with the a rodger medications. Ice as much as possible in the next 72 hours. Work slip, off work for the next [address] hours. Follow up with Dr. Goyal in the next 48 hours for re-evaluation. [id number] EDWARD DICKINSON MD [place]: Document: [id number] [place], [place] Name: CASSIE RIVAS EMERGENCY ROOM ENCOUNTER Page 2 of 2 LCN: JOHNNA DSC: [place], [place] Name: MR#: : Admit Date: CASSIE RIVAS [id number] 01/25/2005 Doctor: EDWARD DICKINSON MD EMERGENCY ROOM ENCOUNTER Page 1 of 2 Electronically filed by Cameron Murry 02/03/2003 11:27 AM documented in this encounter Plan of Treatment Not on file documented as of this encounter Visit Diagnoses Diagnosis ER ENCOUNTER- Primary documented in this encounter Additional Health Concerns Infection Onset Date Last Indicated Resolved Time COVID-19 08/27/2020 08/27/2020 09/17/2020 11:4 0 PM SENIOR COURTROOM CLERK documented as of this encounter Care Teams Thermostat Repairer Relationship Specialty Start Date End Date Maya Goyal MD [address] [place] [address] PCP - General 05/03/04 11/14/22 None PCP - General 12/01/02 05/02/04 Maya Goyal MD [address] [place] [address] PCP - Assigned PCP 10/22/09 11/26/18 No Ref-Primary, Physician PCP - General 11/15/22 Eva Mckenna RN Clinic Green Building Engineer Primary Care - CC 02/19/18 Maya Goyal MD [address] [place] [address] Assigned PCP 06/27/12 10/17/23 Mehdi Sen MD [address] [place], [place] [id number] Assigned Musculoskeletal Provider 07/16/20 12/18/20 Erlin Delcid MD [address] [address] Assigned Surgical Provider 09/12/20 Elicia Bedoya [facility] [address] [place] [address] [address] [place] [address] Pharmacist Pharmacist 11/09/20 12/06/20 Kae Whipple [facility] [address] [place] [address] Pharmacist Pharmacist 11/30/20 12/06/20 Mehdi Bass DPM [id number] [place] [address] [address] [place] [address] Assigned Musculoskeletal Provider 08/14/21 10/27/22 Kae Whipple [facility] [address] [place] [address] Assigned MTM Pharmacist 03/18/22 Maya Goyal MD [address] [place] [address] [address] [place] [address] Assigned Pain Medication Provider 10/02/22 03/23/23 Mehdi Bass DPM [id number] [place] [address] [place] [address] Assigned Surgical Provider 10/28/22 [facility] [address] [place] [address] Assigned PCP 10/18/23 documented as of this encounter
--- OUTSIDE RECORDS SUMMARY | 2024-05-19 05:38 | XMS_ITS | Clinical Summary ---
Author Organization [facility] Address [place], [place] [address] Care Team Providers Care Hand Spring Repairer Name Role Phone Sarahi Roche RN Unavailable [phone] Caryl Shi DO Primary Care Provider [phone] Allergies No known active allergies Medications Medication Sig Dispensed Refills Start Date End Date Status Multivitamin Cmb No.21-Iron-FA 18-400 mg-mcg tab Take 1 Tablet by mouth once daily. Active finasteride (PROSCAR) 5 mg tabletIndications :BPH with urinary obstruction Take 1 Tablet (5 mg) by mouth once daily. 30 Tablet 11 2 Active tamsulosin (FLOMAX) 0.4 mg capsuleIndication s:BPH with urinary obstruction Take 1 Capsule (0.4 mg) by mouth once daily after a meal. 90 Capsule 3 2 Active oxyCODONE (ROXICODONE) 5 mg immediate release tablet TAKE ONE TABLET BY MOUTH EVERY 12 HOURS NEEDED - *CAUTION: OPIOID. RISK OF OVERDOSE AND ADDICTION. 3 Active FreeStyle Susanna 2 SensorIndications :Type 2 diabetes mellitus with stage 1 chronic kidney disease, with long-term current use of insulin (HC) To be used to read blood sugars per health program analyst's directions. Change each sensor every 14 days 6 Each 12 3 Active FreeStyle Susanna 2 ReaderIndications :Type 2 diabetes mellitus with stage 1 chronic kidney disease, with long-term current use of insulin (HC) To be used to read blood sugars per health program analyst's directions. 1 Each 3 Active rosuvastatin (CRESTOR) 10 mg tabletIndications :Hyperlipidemia LDL goal <100 Take 1 Tablet (10 mg) by mouth at bedtime. 90 Tablet 3 3 Active gabapentin (NEURONTIN) 300 mg capsuleIndication s:Diabetic peripheral neuropathy associated with type 2 diabetes mellitus (HC) Take 1 Capsule (300 mg) by mouth three times daily. 270 Capsule 2 3 Active UltiCare Pen Needle 31 gauge x 5/16Indications: Type 2 diabetes mellitus with stage 1 chronic kidney disease, without long-term current use of insulin (HC) As directed. For administering insulin at home. 300 Each 3 4 Active furosemide (LASIX) 20 mg tabletIndications :HTN (hypertension),Bi lateral lower extremity edema Take 1 Tablet (20 mg) by mouth once daily in the morning. 90 Tablet 3 4 Active insulin aspart, U-100, (NOVOLOG FLEXPEN) 100 unit/mL (3 mL) penIndications:Ty pe 2 diabetes mellitus with complication, with long-term current use of insulin (HC) Inject 10 units subcutaneous two times daily before meals. 15 mL 3 4 Active lisinopril-hydroc hlorothiazide (10-12.5 mg) tablet (PRINZIDE; ZESTORETIC)Indica tions:Benign essential hypertension Take 1 Tablet by mouth once daily. 100 Tablet 2 4 Active FreeStyle Susanna 2 SensorIndications :Type 2 diabetes mellitus with complication, with long-term current use of insulin (HC) To be used to read blood sugars per health program analyst's directions. 6 Each 3 4 Active DULoxetine (CYMBALTA) 60 mg Delayed-release capsuleIndication s:Mild episode of recurrent major depressive disorder (HC) Take 1 Capsule (60 mg) by mouth once daily. 90 Capsule 4 Active carvediloL (COREG) 25 mg tabletIndications :Benign essential hypertension Take 2 Tablets (50 mg) by mouth two times daily with meals. 360 Tablet 3 4 Active insulin degludec, U-200, (Tresiba FlexTouch U-200) 200 unit/mL (3 mL) penIndications:Ty pe 2 diabetes mellitus with stage 1 chronic kidney disease, with long-term current use of insulin (HC) Inject 88 units subcutaneous at bedtime. 18 mL 4 Active empagliflozin (JARDIANCE) 25 mg tabletIndications :Type 2 diabetes mellitus with complication, with long-term current use of insulin (HC) Take 1 Tablet (25 mg) by mouth once daily. 90 Tablet 4 Active DULoxetine (CYMBALTA) 30 mg Delayed-release capsuleIndication s:Mild episode of recurrent major depressive disorder (HC) Take 1 Capsule (30 mg) by mouth once daily. Take with 60 mg capsule for 90 mg total per day. 90 Capsule 4 Active magnesium oxide (MAG-OX 400) 400 mg tabletIndications :Hypomagnesemia Take 1 Tablet (400 mg) by mouth once daily. 90 Tablet 4 Active magnesium oxide (MAG-OX 400) 400 mg tabletIndications :Hypomagnesemia Take 1 Tablet (400 mg) by mouth once daily. 90 Tablet 1 4 Active metFORMIN (GLUCOPHAGE) 500 mg tabletIndications :Type 2 diabetes mellitus with stage 3b chronic kidney disease, with long-term current use of insulin (HC) TAKE 2 TABLETS BY MOUTH EVERY MORNING AND 2 TABLETS IN THE EVENING WITH MEALS 360 Tablet 2 4 Active magnesium oxide (MAG-OX 400) 400 mg tabletIndications :Hypomagnesemia Take 1 Tablet (400 mg) by mouth once daily. 90 Tablet 4 05/06/20 24 Discontinue d(Reorder (E-cancel not sent)) empagliflozin (JARDIANCE) 25 mg tabletIndications :Type 2 diabetes mellitus with stage 3b chronic kidney disease, with long-term current use of insulin (HC) Take 1 Tablet (25 mg) by mouth once daily. 90 Tablet 4 05/05/20 24 Discontinue d(Reorder (E-cancel not sent)) insulin degludec, U-200, (Tresiba FlexTouch U-200) 200 unit/mL (3 mL) penIndications:Ty pe 2 diabetes mellitus with stage 1 chronic kidney disease, with long-term current use of insulin (HC) Inject 88 units subcutaneous at bedtime. 54 mL 4 04/30/20 24 Discontinue d(Reorder (E-cancel not sent)) metFORMIN (GLUCOPHAGE) 500 mg tabletIndications :Type 2 diabetes mellitus with stage 3b chronic kidney disease, with long-term current use of insulin (HC) TAKE 2 TABLETS BY MOUTH EVERY MORNING AND 2 TABLETS IN THE EVENING WITH MEALS 360 Tablet 3 4 05/17/20 24 Discontinue d(*Availabi lity/Formul yanely change/Cost of medication) carvediloL (COREG) 25 mg tabletIndications :Benign essential hypertension TAKE 2 TABLETS BY MOUTH TWICE DAILY WITH MEALS 360 Tablet 3 4 04/22/20 24 Discontinue d(*Availabi lity/Formul yanely change/Cost of medication) doxycycline 100 mg capsule Take 100 mg by mouth two times daily before meals. 4 05/10/20 24 Active Problems Problem Noted Date Diagnosed Date Seborrheic keratosis 01/28/2024 Diabetic ulcer of toe associ ated with type 2 diabetes mellitus, limited to breakdown of skin, unspecified laterality 01/28/2024 Ectatic abdominal aorta 08/31/2023 Overview: Recommended f/up in 5 years Hypertriglyceridemia 08/15/2023 Stage 3b chronic kidney disease 08/15/2023 Type 2 diabetes mellitus wit h stage 3b chronic kidney disease, with long-term current use of insulin 08/15/2023 Primary osteoarthritis of both knees 04/13/2023 Controlled substance agreement signed 05/02/2022 Overview: [facility]. 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 Provider to review Benign essential hypertension 06/17/2002 Resolved Problems Problem Noted Date Diagnosed Date Resolved Date PAD (peripheral artery disease) 10/04/2022 11/13/2022 Encounters Date Type Department Care Team Description 05/14/2024 Refill [facility] [address] [place] [address] Caryl Shi, Refill Request (METFORMIN) 05/08/2024 Telephone [facility] [address] [place] [address] Caryl Shi DO Prior Authorization (insulin degludec, U-200, (Tresiba FlexTouch U-200) 200 unit/mL (3 mL) pen - PA NOT NEEDED) 05/06/2024 Refill [facility] [address] [place] [address] Caryl Shi DO Refill Request (MAGNESIUM OXIDE 400MG TABS) 05/06/2024 Telephone [facility] [address] [place] [address] Caryl Shi DO Health Maintenance Update (HEALTH UPDATE) 05/05/2024 12:45 PM CDT Office Visit [facility] [address] [facility] [address] Caryl Shi DO Diabetes; Wound Check (Wound on back of right leg above ankle, present for 2-3 weeks. ) 05/05/2024 11:00 AM CDT Office Visit [facility] [address] [place] [address] Luis Eduardo Watts MD Musculoskeletal Problem (Follow up, back pain) 05/05/2024 Travel 05/03/2024 Orders Only [facility] Scanner 1 scan: (1-Ord) [facility], 05/03/2024 05/03/2024 Orders Only [facility] Scanner 1 scan: (1-Ord) [facility], 05/03/2024 04/30/2024 11:40 AM CDT Office Visit [facility] [address] [place] [address] Girma Palacio MD Follow Up (Follow up after MRI 03/31/24 and EMG 04/03/24 ) 04/30/2024 Refill [facility] [address] [place] [address] Caryl Shi, Refill Request (JARDIANCE 25MG TABS) 04/30/2024 Travel 04/30/2024 Refill [facility] [address] [place] [address] Caryl Shi, Refill Request (Tresiba Flextouch 200unit/ml) 04/22/2024 Telephone [facility] [address] [place] [address] Caryl Shi DO Medication Management (carvediloL (COREG) 25 mg tablet) 04/14/2024 Refill [facility] [address] [place] [address] Catia Swift MD Refill Request (Carvedilol) 04/03/2024 10:15 AM CDT - 04/03/2024 11:59 PM CDT Hospital Encounter [facility]W EMG/EEG/EP [address] [address] Girma Palacio MD Beck, Elizabeth Haule, MD Balance problem 04/02/2024 12:45 PM CDT Office Visit [facility] [address] [place] [address] Caryl Shi, Anxiety (Feels his mood is still impacted by his physical impairments. Sleep is also heavily impacted); Depression 04/02/2024 Travel 04/01/2024 Telephone [facility] [address] [place] [address] Girma Palacio MD Results (Brain MRI ) 03/31/2024 11:00 AM CDT Ancillary Procedure [facility] [address] [place] [address] 03/31/2024 Travel 03/31/2024 Refill [facility] [address] [place] [address] Catia Swift MD Refill Request (Lisinopril-hydrochlor othiazide 10 Mg-12.5 Mg) 03/05/2024 1:00 PM CDT Office Visit [facility] [address] [place] [address] Girma Palacio MD Consult (Lumbar radiculopathy, balance problem, polyneuropathy due to other toxic agents Ref: Dr. Watts /MR Lumbar 06/11/23 /XR Lumbar 05/21/23 /MR Lumbar 10/07/21, 03/02/20 @ [facility] /Images pushed 12/24/23 /Epidural steroid injection @ [facility] 11/21/22 ) 03/05/2024 Travel 03/03/2024 Telephone [facility] [address] [place] [address] Caryl Shi, Medication Management (insulin aspart niacinamide (Fiasp FlexTouch U-100 Insulin) 100 ) 02/20/2024 12:45 PM CDT Office Visit [facility] [address] [place] [address] Caryl Shi, Medicare ANNUAL (subsequent) Visit (struggling with mood, allergies, appetite has decreased) 02/20/2024 Travel 02/19/2024 Refill [facility] [address] [place] [address] Caryl Shi, Refill Request (METFORMIN HCL 500MG TABS) from Last 3 Months Immunizations Name Administration Dates Next Due HepA-HepB (Twinrix) 12/28/2010,07/25/2010,2009 Influenza Virus, Unspecified 08/04/2003 Tdap 07/19/2016,06/24/2010 Zoster (Shingrix-RZV, recombinant) 12/24/2022, Social History Tobacco Use Types Packs/Day Years Used Date Smoking Tobacco: Former Cigarettes Q uit: 2018 Smokeless Tobacco: Former Tobacco Cessation:Counseling Given: Yes Alcohol Use Standard Drinks/Week Comments Yes 7 (1 standard drink = 0.6 oz pur e alcohol) 2-3 a day PHQ-2 Answer Date Recorded PHQ-2 TOTAL SCORE 3 05/05/2024 Social Connections Answer Date Recorded Frequency of Communication with Friends and Fami ly 0 07/09/2023 Financial Resource Strain Answer Date R ecorded Difficulty of Paying Living Expenses 3 07/09/2023 Difficulty of Paying Living Expenses Not on file 07/09/2023 Food Insecurity Answer Date Recorded Worried About Running Out of Food in the Last Ye ar 1 07/09/2023 Transportation Needs Answer Date Record ed Lack of Transportation (Medical) 1 07/09/2023 Housing Stability Answer Date Recorded Unable to Pay for Housing in the Last Year 1 07/09/2023 Sex and Gender Information Value Date Recorded Sex Assigned at Male 04/30/2022 4:18 PM CDT Gender Identity Male 04/30/2022 4:18 PM CDT Sexual Orientation Straight 04/30/2022 4: 18 PM CDT Obstetrics History Last Filed Vital Signs Vital Sign Reading Time Taken Comments Blood Pressure 142/92 05/05/2024 1:14 PM CDT Pulse 74 05/05/2024 12:40 PM CDT Temperature 36.7 ??C (98 ??F) 05/05/2024 11:07 AM CDT Respiratory Rate 14 06/19/2022 11:22 AM CDT Oxygen Saturation 95% 05/05/2024 11:07 AM CDT Inhaled Oxygen Concentration - - Weight 155.6 kg (343 lb) 05/05/2024 12:40 PM CDT Height 188 cm (6' 2) 05/05/2024 11:07 AM CDT Body Mass Index 44.04 05/05/2024 11:07 AM CDT Plan of Treatment Upcoming Encounters Date Type Department Care Team (Late st Contact Info) Description 05/19/2024 11:00 AM CDT Ancillary Procedure [facility] [address] [place] [address] 08/07/2024 12:45 PM [facility] Office Visit [facility] [address] [place] [address] Caryl Shi, DO [address] [place] [address] Health Maintenance Due Date Last Done Comments Pneumococcal series for age 65+ (1 of 2 - PCV) 1966 COVID-19 vaccine series (1 - 2022-24 season) 2023 Influenza for age 65+ 05/25/2024 08/04/2003 Colonoscopy through age 75 08/13/202408/13 (Verified in Care Everywhere or Patient Record) Medicare Wellness for age 65+ 02/20/2025 02/20/2024, 06/28/2022 BMI (ht and wt on same day) for age 18+ 05/05/2025 05/05/2024, 02/20/2024, 04/16/2023, Additional history exists Depression screening for age 12+ 05/08/2025 05/08/2024, 05/06/2024, 05/06/2024, Additional history exists Tetanus booster 07/19/2026 07/19/2016, 06/24/2010 Lipids for age 45-75 07/26/2028 07/26/2023, 07/26/2023, 04/25/2023, Additional history exists Tdap Completed 07/19/2016, 06/24/2010 Hepatitis C screening for age 18-79 Addressed 08/10/2017 (Verified in Care Everywhere or Patient Record) Overridden with the intention of not completing the topic Zoster (shingles) series for age 50+ Completed 12/24/2022, 10/23/2022 AAA screening age 65-74 Completed 08/27/2023 HIV for age 15-65 Completed 05/05/2024 Procedures Procedure Name Priority Date/Time Associated Diagnosis Comments HEMOGLOBIN A1C Routine 05/05/2024 12:10 PM CDT Type 2 diabetes mellitus with complication, with long-term current use of insulin (HC) PSA TOTAL SCREEN Routine 05/05/2024 12:1 0 PM CDT Screening for prostate cancer ANTI HIV 1/2 Routine 05/05/2024 12:10 PM CDT Screening for HIV (human immunodeficiency virus) SCAN-LABORATORY REPORT 05/03/2024 12:00 AM CDT SCAN-LABORATORY REPORT 05/03/2024 12:00 AM CDT EMG Routine 04/03/2024 Balance problem MR HEAD BRAIN WO Routine 03/31/2024 11:2 1 AM CDT Balance problem US ABD AORTA SCREENING Routine 08/27/2023 2:10 PM [facility] Screening for AAA (aortic abdominal aneurysm) LIPID PANEL W REFLEX MEASURED LDL Routine 07/26/2023 2:25 PM CDT Hyperlipidemia LDL goal <100 from Last 3 Months or Most Recently Relevant to Health Maintenance Results * ANTI HIV 1/2 [18590.0] (05/05/2024 12:10 PM CDT) HIV-1/HIV-2 SCREEN Non-Reacti ve Non-Reacti ve 05/06/2024 1:45 AM CDT [facility] Comment:HIV-1 p24 and HIV-1/ HIV-2 Ab Not Detected. Blood BLOOD SPECIMEN / Unknown Venipuncture / Unknown 05/05/2024 12:10 PM CDT 05/05/2024 12:11 PM CDT Caryl Shi DO SEND OUTS [facility] [address] [place] [address], * (ABNORMAL) HEMOGLOBIN A1C MONITORING (POCT) (05/05/2024 12:10 PM CDT) HEMOGLOBIN A1C MONITORING (POCT) 7.0(H) <=6.4 % 05/05/2024 12:26 PM CDT [facility] Blood BLOOD SPECIMEN / Unknown Venipuncture / Unknown 05/05/2024 12:10 PM CDT 05/05/2024 12:11 PM CDT Narrative [facility] - 05/05/2024 12:26 PM CDT ? (<=6.9%) ? Indicates good control ? (7.0% to 7.9%) ? Indicates fair control ? (>=8.0%) ? Indicates poor control ?? NOTE: ??These thresholds are guidelines and ?individual targets may vary. Falsely low levels may be seen with: Recent Transfusion, Recent Significant Blood Loss, Hemolytic Diseases, or Falsely elevated levels may be seen with: Untreated Anemias, Splenectomy ? Caryl Shi DO CHEMISTRY Performing Organization Address City/[facility]/ZIP Co de Phone Number [facility] [address] [place] [address], * PSA TOTAL SCREEN [g0103.0] (05/05/2024 12:10 PM CDT) PSA TOTAL (SCREEN) 0.06 <4.00 ng/mL 05/06/2024 1:09 AM CDT [facility] Blood BLOOD SPECIMEN / Unknown Venipuncture / Unknown 05/05/2024 12:10 PM CDT 05/05/2024 12:11 PM CDT Narrative [facility] - 05/06/2024 1:09 AM CDT The test method changed on 03/20/2023. If this test has been used for serial monitoring, rebaselining is recommended. Rebaselining consists of 2 measurements, collected 3-6 weeks apart. The [employer] total PSA assay is an electrochemiluminescence immunoassay ECLIA performed on the [employer] Ismael e immunoassay analyzers. Values obtained with different assay methods may be different and cannot be used interchangeably. Caryl Shi DO LABORATORY [facility] [address] [place] [address], * SCAN-LABORATORY REPORT (05/03/2024 12:00 AM CDT) Only the most recent of2 resultswithin the time period is included. Scanner OTHER * EMG (04/03/2024) Girma Palacio MD NEUROLOGY ORD * MR BRAIN WO CONTRAST (03/31/2024 11:21 AM CDT) Anatomical Region Laterality Modality BRAIN, HEAD Magnetic Resonan ce 03/31/2024 12:2 0 PM CDT Narrative 03/31/2024 12:20 PM CDT For Patients: ??As a result of the Cures Act, medical imaging exams and procedure reports are released immediately into your electronic medical record. ??You may view this report before your referring provider. ??If you have questions, please contact your health care provider. INDICATION: Balance problem. Technique Multiplanar multisequence noncontrast MR images of the brain. Comparison CT brain 02/01/2024. FINDINGS: Cqjp-wz-aqigprcp diffuse cerebral volume loss. No mass effect or midline shift. Minimal FLAIR hyperintensities in the supratentorial white matter, typical for sequelae of chronic microvascular ischemic changes. No intracranial hemorrhage or pathologic extra-axial fluid collection. No diffusion restriction to suggest acute infarction. The major arterial flow voids at the skullbase are preserved. Thinning of the ocular lenses. Minimal ethmoid sinus mucosal thickening. Trace left mastoid effusion. IMPRESSION 1. No acute intracranial abnormality. 2. Qrus-oe-tpanwnkj diffuse cerebral volume loss. 3. Minimal chronic microvascular ischemic changes. Dictated by Saúl Conner MD @ 03/31/2024 12:20:51 PM (Electronically Signed) Procedure Note Saúl Conner MD - 03/31/2024 For Patients: As a result of the Cures Act, medical imagingexams and procedure reports are released immediately into your electronicmedical record. You may view this report before your referring provider.If you have questions, please contact your health care provider. INDICATION: Balance problem. Technique Multiplanar multisequence noncontrast MR images of the brain. Comparison CT brain 02/01/2024. FINDINGS: Yisf-mj-slsjidki diffuse cerebral volume loss. No mass effect or midlineshift. Minimal FLAIR hyperintensities in the supratentorial white matter,typical for sequelae of chronic microvascular ischemic changes. No intracranial hemorrhage or pathologic extra-axial fluid collection. Nodiffusion restriction to suggest acute infarction. The major arterial flow voids at the skullbase are preserved. Thinning ofthe ocular lenses. Minimal ethmoid sinus mucosal thickening. Trace leftmastoid effusion. IMPRESSION 1. No acute intracranial abnormality. 2. Ttaq-rv-mmuclfhs diffuse cerebral volume loss. 3. Minimal chronic microvascular ischemic changes. Dictated by Saúl Conner MD @ 03/31/2024 12:20:51 PM (Electronically Signed) Girma Palacio MD MR * US ABD AORTA SCREENING [[id number]] (08/27/2023 2:10 PM [facility]) Anatomical Region Laterality Modality Abdomen, AORTA Ultrasound 08/27/2023 2:16 PM [facility] Narrative 08/27/2023 2:16 PM [facility] For Patients: ??As a result of the Century Cures Act, medical imaging exams and procedure reports are released immediately into your electronic medical record. ??You may view this report before your referring provider. ??If you have questions, please contact your health care provider. Examination: US abdominal aorta Indication: Abdominal aortic aneurysm screening. Technique: Hallman scale and color Doppler images of the aorta and common iliac arteries are obtained. Comparison: None Findings: Proximal aorta: 2.4 x 2.5 cm Mid aorta: 2.7 x 2.9 cm Distal aorta: 2.4 x 2.5 cm Right common iliac artery: Obscured by bowel gas Left common iliac artery: Obscured by bowel gas Recommended imaging interval for ectatic aorta: 2.5-2.9 cm: 5 years Impression: No aneurysm. Ectatic aorta. Dictated by Que Barger MD @ Aug ??4 2022 ??2:16PM (Electronically Signed) ?? Procedure Note Que Barger MD - 08/27/2023 For Patients: As a result of the Century Cures Act, medical imagingexams and procedure reports are released immediately into your electronicmedical record. You may view this report before your referring provider.If you have questions, please contact your health care provider. Examination: US abdominal aorta Indication: Abdominal aortic aneurysm screening. Technique: Hallman scale and color Doppler images of the aorta and common iliac arteriesare obtained. Comparison: None Findings: Proximal aorta: 2.4 x 2.5 cm Mid aorta: 2.7 x 2.9 cm Distal aorta: 2.4 x 2.5 cm Right common iliac artery: Obscured by bowel gas Left common iliac artery: Obscured by bowel gas Recommended imaging interval for ectatic aorta: 2.5-2.9 cm: 5 years Impression: No aneurysm. Ectatic aorta. Dictated by Que Barger MD @ Aug 27 2023 2:16PM (Electronically Signed) Caryl Shi DO US * (ABNORMAL) LIPID PANEL W REFLEX MEASURED LDL (07/26/2023 2:25 PM CDT) Pathologist [facility] CHOLESTEROL,TOTAL 146 100 - 199 mg/dL 07/26/2023 10:45 PM CDT [facility] Comment: Cholesterol, Total Reference Ranges Desirable <200 mg/dL Borderline 200-239 mg/dL High >=240 mg/dL TRIGLYCERIDES 436(H) <150 mg/dL 07/26/2023 10:45 PM CDT [facility] HDL CHOLESTEROL 32(L) >40 mg/dL 3 10:45 PM CDT [facility] NON-HDL CHOLESTEROL 114 <145 mg/dl 07/26/2023 10:45 PM CDT [facility] CHOL/HDL RATIO 4.56(H) <4.50 07/26/2023 10:45 PM CDT [facility] LDL CHOLESTEROL 3 10:45 PM CDT [facility] Comment:Invalid LDL when Tri g >400. VLDL CHOLESTEROL COMMENT 07/26/2023 10:45 PM CDT [facility] Comment:Unable to calculate VLDL. PROVIDER ORDERED STATUS FASTING 07/26/2023 10:45 PM CDT [facility] Blood BLOOD SPECIMEN / Unknown Venipuncture / Unknown 07/26/2023 2:25 PM CDT 07/26/2023 2:25 PM CDT Catia Swift MD CHEMISTRY [facility] [address] [place] [id number], from Last 3 Months or Most Recently Relevant to Health Maintenance Care Teams Hand Spring Repairer Relationship Specialty Start Date End Date Caryl Shi DO [address] [place] [address] PCP - General Family Practice 07/23/23 Sarahi Roche, RN [address] [place] [address] Locker Room Clerk 06/01/23
--- OUTSIDE RECORDS SUMMARY | 2024-05-19 05:38 | XMS_ITS | Encounter Summary ---
Author Organization [facility] Address [address] [place] [address]. [place] [address] Care Team Providers Care Sound Recording Technician Name Role Phone Maya Goyal MD Primary Care Provider [phone] Maya Goyal MD Unavailable Mehdi Sen MD Unavailable [phone] Erlin Delcid MD Unavailable [phone] Elicia Bedoya [facility] Unavailable [phone] Kae Whipple [facility] Unavailable Mehdi Bass DPM Unavailable [phone] Kae Whipple [facility] Unavailable [phone] Maya Goyal MD Unavailable No Ref-Primary, Physician Primary Care Provider Mehdi Bass DPM Unavailable [phone] [facility] Unavailable Reason for Visit * Reason Onset Date Comments Referral 05/02/2019 New Eval Encounter Details Date Type Department Care Team (Late st Contact Info) Description 05/02/2019 [facility] [place] [id number] [facility] [address] [place], [place] [id number] [facility] Social History Tobacco Use Types Packs/Day [...] Sex Assigned at Male 09/17/2018 5:00 PM BELL ATTENDANT Gender Identity Male 09/17/2018 5:00 PM BELL ATTENDANT Sexual Orientation Straight 09/17/2018 5: 00 PM BELL ATTENDANT documented as of this encounter Miscellaneous Notes * Telephone Encounter - Stephanie Rock - 05/02/2019 2:18 PM CDT Referral received from Marli Velasco NP at [facility] for new patient evaluation andmanagement. Diagnosis of Lumbar DDD. Patient previously seen by Jenn Gaspar on 12/19/18 -- can schedule a follow up. Stephanie Rock Scientific Recruiter [facility] documented in this encounter Plan of Treatment Not on file documented as of this encounter Visit Diagnoses Not on filedocumented in this encounter Additional Health Concerns Infection Onset Date Last Indicated Resolved Time COVID-19 08/27/2020 08/27/2020 09/17/2020 11:4 0 PM BELL ATTENDANT Assessment Noted Time PHQ-9 Depression Total Score: 4 09/23/20 18 2:33 PM BELL ATTENDANT documented as of this encounter Care Teams Sound Recording Technician Relationship Specialty Start Date End Date Maya Goyal MD [address] [place] [address] PCP - General 05/03/04 11/14/22 No Ref-Primary, Physician PCP - General 11/15/22 Maya Goyal MD [address] [place] [address] Assigned PCP 06/27/12 10/17/23 Mehdi Sen MD [address] [place] [address] Assigned Musculoskeletal Provider 07/16/20 12/18/20 Erlin Delcid MD [address] [facility] [address] [place] [address] Assigned Surgical Provider 09/12/20 Elicia Bedoya, [facility] [address] [facility] 812 [place] [address] Pharmacist Pharmacist 11/09/20 12/06/20 Kae Whipple [facility] [address] [place] [address] Pharmacist Pharmacist 11/30/20 12/06/20 Mehdi Bass DPM [address] [place] [address] Assigned Musculoskeletal Provider 08/14/21 10/27/22 Kae Whipple [facility] [address] [place], [place] [address] Assigned MTM Pharmacist 03/18/22 Maya Goyal MD [address] [facility] [address] [place] [address] Assigned Pain Medication Provider 10/02/22 03/23/23 Mehdi Bass DPM [address] [place] [address] Assigned Surgical Provider 10/28/22 [facility] [address] [address] Assigned PCP 10/18/23 documented as of this encounter
--- OUTSIDE RECORDS SUMMARY | 2024-05-19 05:38 | XMS_ITS ---
Author Organization [facility] Address [address] [place] [address] [address] [facility] [place] [address] Care Team Providers Care Compliance Project Manager Name Role Phone Caryl Shi Primary Care Provider Karlo Hewitt Unavailable [phone] Catia Swift MD Unavailable Unavailable Michael Suárez Unavailable [phone] REASON FOR VISIT F/u week of 06/16--JF BV Medications Medication SIG (Take, Route, Frequency, Duration) Notes Start Date End Date Status oxyCODONE HCl 5 MG 1 tablet as needed Orally every 8-12 hours (max #3/day, ok to fill 05/10/2024) for 30 days Low back pain, unspecified M54.50, G89.29 05/10/2024 Active Encounters Encounter Location Date Provider Diagnosis [facility] [address] [place] [address] [address] [facility] [place] [place] [address] 05/02/2024 Michael Suárez Other chronic pain G89.29 Assessments Encounter Date Diagnosis (ICD Code) Assessment Notes Treatment Notes Treatment Clinical Notes 05/02/2024 Other chronic pain (ICD-10 - G89.29) Plan Of Treatment Medication Medication Name Sig Start Date Stop Date Notes oxyCODONE HCl 5 MG 1 tablet as needed Orally every 8-12 hours (max #3/day, ok to fill 05/10/2024) for 30 days 05/10/2024 Low back pain, unspecified M54.50, G89.29 Progress Notes * Rafa RIVAS JrDOB: [birth year] (63 yo M)Acc No.[id number]:05/02/2024 Patient:?Rafa RIVAS Jr :1960???Age:63 Y???Sex:Male Phone: Address:[address] [place] [address] * Refills? Refill oxyCODONE HCl Tablet, 5 MG, Orally, 70, 1 tablet as needed, every 8-12 hours (max #3/day, ok to fill 05/10/2024), 30 days, Refills=0 * * Date:?
--- OUTSIDE RECORDS SUMMARY | 2024-05-19 05:38 | XMS_ITS | Encounter Summary ---
Author Organization [facility] Address [address] [place] [address]. [place] [address] Care Team Providers Care Colorer Machine Name Role Phone Maya Goyal MD Primary Care Provider [phone] None Primary Care Provider UnavailEva Brannon RN Unavailable [phone] Maya Goyal MD Unavailable Maya Goyal MD Unavailable Mehdi Sen MD Unavailable [phone] Erlin Delcid MD Unavailable [phone] Elicia Bedoya [facility] Unavailable [phone] Kae Whipple [facility] Unavailable [phone] Mehdi Bass DPM Unavailable [phone] Kae Whipple [facility] Unavailable [phone] Maya Goyal MD Unavailable No Ref-Primary, Physician Primary Care Provider Mehdi Bass DPM Unavailable [phone] [facility] Unavailable Encounter Details Date Type Department Care Team (Late st Contact Info) Description 12/15/2002 [place] [address] [place] [address] aMya Goyal MD [address] [facility] 200 [place] [address] ER ENC (Primary Dx) Social History Tobacco [...] Sex Assigned at Male 09/17/2018 5:00 PM DISTRICT ADMINISTRATOR Gender Identity Male 09/17/2018 5:00 PM DISTRICT ADMINISTRATOR Sexual Orientation Straight 09/17/2018 5: 00 PM DISTRICT ADMINISTRATOR documented as of this encounter Progress Notes * 12/15/2002 11:59 PM [id number] 00:00 Emergency Department Encounter-[facility] TRACY BYRNE) [Entered: 00:00 Orthotic And Prosthetic Technician (HIM)] : 56 CHIEF COMPLAINT: I was at work and a tow bar dropped on my arm. HISTORY OF PRESENT ILLNESS: Rafa Hickey is a 42-year-old white male who comes to us from [employer] where he was working out on the [employer]. Apparently his friend pulled the tug away a nd the tow bar dropped onto his right wrist. It bounced and hit him twice. He now complains of pain over the distal right wrist and also particularly over the navicular area. He has decreased range o f motion with some ecchymoses and soft tissue swelling. No numbness, tingling or loss of function in his right hand. The patient is unfortunately right-handed. SOCIAL HISTORY: The patient has worked [employer] for the last eighteen years. REVIEW OF SYSTEMS: The patient is right-handed. He had no other apparent injuries. PAST MEDICAL HISTORY: Previous left wrist fracture. History of hype rtension, hypercholesterolemia and bipolar disorder and depression with attention deficit hyperactivi ty disorder. MEDICATIONS: Wellbutrin, Lisinopril and Zocor. FAMILY HISTORY: Noncontributory. PHYSIC AL EXAM: Temperature is 98, respirations 16, pulse 88, blood pressure 144/96. GENERAL: The patient is alert, oriented times three and appropriate. Only physical findings are to the right wrist. There is some ecchymoses present with decreased range of motion. Good distal CMS prior to and following ap plication of the splint. The patient is particularly tender over the navicular area with some ecchy subha in this region. Thumb motion, however, does not cause much discomfort. EMERGENCY DEPARTMENT COU RSE: X-ray of the right wrist shows a questionable crack in the navicular. This should be reviewed b y Radiology. There is certainly soft tissue trauma present. The patient was placed in a well padded p ressure dressing and short arm splint. Recheck following this revealed good distal CMS and particula rly excellent capillary refill. This was done by me in the Emergency Department. DISPOSITION: The patient was advised to elevate his arm in sling when up and follow-up in two days at [facility] f or clearance for work. He may be able to return to light duty with his left hand. He was given appr opriate work slips to follow-up. DIAGNOSIS: 1) Soft tissue trauma, right wrist with questionable raysa icular fracture, under evaluation. 2) Workman's Comp related. _ TRACY BYRNE MD MT: Document: [id number] Electronically filed by Stella Paul 12/18 11:45 AM documented in this encounter Plan of Treatment Not on file documented as of this encounter Visit Diagnoses Diagnosis ER ENC- Primary documented in this encounter Additional Health Concerns Infection Onset Date Last Indicated Resolved Time COVID-19 08/27/2020 08/27/2020 09/17/2020 11:4 0 PM DISTRICT ADMINISTRATOR documented as of this encounter Care Teams Colorer Machine Relationship Specialty Start Date End Date Maya Goyal MD [address] [place] [address] PCP - General 05/03/04 11/14/22 None PCP - General 12/01/02 05/02/04 Maya Goyal MD [address] [place], [place] [address] PCP - Assigned PCP 10/22/09 11/26/18 No Ref-Primary, Physician PCP - General 11/15/22 Eva Mckenna, RN [facility] Primary Care - CC 02/19/18 Maya Goyal MD [address] [facility] [address] [place], [place] [address] Assigned PCP 06/27/12 10/17/23 Mehdi Sen MD [address] [place], [place] [address] Assigned Musculoskeletal Provider 07/16/20 12/18/20 Erlin Delcid MD [address] [address]99[address] Assigned Surgical Provider 09/12/20 Elicia Bedoya, [facility] [address] [place] [address] 8[address] [place], [place] [address] Pharmacist Pharmacist 11/09/20 12/06/20 Kae Whipple [facility] [address] [place], [place] [address] Pharmacist Pharmacist 11/30/20 12/06/20 Mehdi Bass DPM [address] [facility] [address] [place], [place] [address] Assigned Musculoskeletal Provider 08/14/21 10/27/22 Kae Whipple [facility] [address] [place], [place] [address] Assigned MTM Pharmacist 03/18/22 Maya Goyal MD [address] [facility] [address] [place] [address] Assigned Pain Medication Provider 10/02/22 03/23/23 Mehdi Bass DPM [address] [facility] [address] [place] [address] Assigned Surgical Provider 10/28/22 [facility] 303 [place] [address] Assigned PCP 10/18/23 documented as of this encounter
--- OUTSIDE RECORDS SUMMARY | 2024-05-19 05:38 | XMS_ITS | Encounter Summary ---
Author Organization [facility] Address [address] [place] [address]. [place] [address] Care Team Providers Care Staff Sonographer Name Role Phone Maya Goyal MD Primary Care Provider [phone] Eva Mckenna RN Unavailable [phone] Maya Goyal MD Unavailable Maya Goyal MD Unavailable Mehdi Sen MD Unavailable [phone] Erlin Delcid MD Unavailable [phone] Elicia Bedoya [facility] Unavailable [phone] Kae Whipple [facility] Unavailable Mehdi Bass DPM Unavailable [phone] Kae Whipple [facility] Unavailable [phone] Maya Goyal MD Unavailable No Ref-Primary, Physician Primary Care Provider Mehdi Bass DPM Unavailable [phone] [facility] Unavailable Encounter Details Date Type Department Care Team (Late st Contact Info) Description 12/13/2010 [facility] [address] [place] [address] Maya Goyal MD [address] [place] [address]27 Social History Tobacco Use Types Packs/Day Years Used Date Smoking Tobacco: Former Cigarettes 0.5 20 0 12/01/1990 - 12/01/2010 Smokeless Tobacco: Never Alcohol Use Standard Drinks/Week Comments Yes 0 (1 standard drink = 0.6 oz pur e alcohol) Social once every 3 months Sex and Gender Information Value Date Recorded Sex Assigned at Male 09/17/2018 5:00 PM AUTOMATIC LATHE TENDER Gender Identity Male 09/17/2018 5:00 PM AUTOMATIC LATHE TENDER Sexual Orientation Straight 09/17/2018 5: 00 PM AUTOMATIC LATHE TENDER documented as of this encounter Plan of Treatment Not on file documented as of this encounter Visit Diagnoses Not on filedocumented in this encounter Additional Health Concerns Infection Onset Date Last Indicated Resolved Time COVID-19 08/27/2020 08/27/2020 09/17/2020 11:4 0 PM AUTOMATIC LATHE TENDER documented as of this encounter Care Teams Staff Sonographer Relationship Specialty Start Date End Date Maya Goyal MD [address] [place] [address] PCP - General 05/03/04 11/14/22 Maya Goyal MD [address] [place] [address] PCP - Assigned PCP 10/22/09 11/26/18 No Ref-Primary, Physician PCP - General 11/15/22 Eva Mckenna RN [facility] Extension Educator Primary Care - CC 02/19/18 Maya Goyal MD [address] [place] [address] Assigned PCP 06/27/12 10/17/23 Mehdi Sen MD [address] [place] [address] Assigned Musculoskeletal Provider 07/16/20 12/18/20 Erlin Delcid MD [address] [address] Assigned Surgical Provider 09/12/20 Elicia Bedoya [facility] [address] [place] [address] 812 [place] [address] Pharmacist Pharmacist 11/09/20 12/06/20 Kae Whipple [facility] [address] [place] [address] Pharmacist Pharmacist 11/30/20 12/06/20 [place] [address] [place] [address] [address] Assigned Musculoskeletal Provider 08/14/21 10/27/22 Kae Whipple [facility] [address] [place] [address] Assigned MTM Pharmacist 03/18/22 Maya Goyal MD [address] [place] [address] Assigned Pain Medication Provider 10/02/22 03/23/23 Mehdi Bass DPM [facility] [place] [address] [address] Assigned Surgical Provider 10/28/22 [facility] [address] [place] [address] Assigned PCP 10/18/23 documented as of this encounter
--- OUTSIDE RECORDS SUMMARY | 2024-05-19 05:38 | XMS_ITS | Encounter Summary ---
Author Organization [facility] Address [address] [place] [address] Care Team Providers Care Control Clerk Head Name Role Phone Maya Goyal MD Primary Care Provider [phone] Maya Goyal MD Unavailable Mehdi Sen MD Unavailable [phone] Erlin Delcid MD Unavailable [phone] Elicia Bedoya [facility] Unavailable [phone] Kae Whipple [facility] Unavailable [phone] Mehdi Bass DPM Unavailable [phone] Kae Whipple [facility] Unavailable Maya Goyal MD Unavailable No Ref-Primary, Physician Primary Care Provider Mehdi Bass DPM Unavailable [phone] [facility] Unavailable Reason for Visit * Reason Comments Medication Refill Encounter Details Date Type Department Care Team (Late st Contact Info) Description 03/22/2020 [facility] [address] [place] [address] Maya Goyal MD [address] [place] [address] Medication Refill Social History Tobacco Use Types Packs/Day Years Used Date Smoking Tobacco: Former Cigarettes 0.5 20 0 03/18/1999 - 03/18/2019 Smokeless Tobacco: Never Comments:using e-cigarette Alcohol Use Standard Drinks/Week Comments Yes 0 (1 standard drink = 0.6 oz pure alcohol) No alcohol since 08/31/2018 - Currently in program PHQ-2 Answer Date Recorded PHQ-2 Score 2 11/18/2019 Sex and Gender Information Value Date Recorded Sex Assigned at Male 09/17/2018 5:00 PM CHARGE HISTOTECHNOLOGIST Gender Identity Male 09/17/2018 5:00 PM CHARGE HISTOTECHNOLOGIST Sexual Orientation Straight 09/17/2018 5: 00 PM CHARGE HISTOTECHNOLOGIST COVID-19 Exposure Response Date Recorded In the last month, have you been in contact with someone who was confirmed or suspected to have Coronavirus / COVID-19? No / Unsure 03/12/2020 11:08 AM CDT documented as of this encounter Miscellaneous Notes * Telephone Encounter - Leah Narvaez RPH - 03/23/2020 4:44 PM CDT Prescription approved per [facility] Refill Protocol. documented in this encounter Plan of Treatment Not on file documented as of this encounter Visit Diagnoses Diagnosis CKD (chronic kidney disease) stage 1, GFR 90 ml/min or greater Chronic kidney disease, Stage I Benign essential hypertension Essential hypertension, benign documented in this encounter Additional Health Concerns Infection Onset Date Last Indicated Resolved Time COVID-19 08/27/2020 08/27/2020 09/17/2020 11:4 0 PM CHARGE HISTOTECHNOLOGIST Assessment Noted Time PHQ-9 Depression Total Score: 9 11/19/19 20 7:03 AM CHARGE HISTOTECHNOLOGIST documented as of this encounter Care Teams Control Clerk Head Relationship Specialty Start Date End Date Maya Goyal MD [address] [address] PCP - General 05/03/04 11/14/22 No Ref-Primary, Physician PCP - General 11/15/22 Maya Goyal MD [address] [place] [address] Assigned PCP 06/27/12 10/17/23 Mehdi Sen MD [address] [place] [address] Assigned Musculoskeletal Provider 07/16/20 12/18/20 Erlin Delcid MD [address] [address] Assigned Surgical Provider 09/12/20 Elicia Bedoya [facility] [address] [facility] 812 [place] [address] Pharmacist Pharmacist 11/09/20 12/06/20 Kae Whipple [facility] [address] [place] [address] Pharmacist Pharmacist 11/30/20 12/06/20 Mehdi [place] [address] [facility] [address] [place] [address] Assigned Musculoskeletal Provider 08/14/21 10/27/22 Kae Whipple [facility] [address] [place] [address] Assigned MTM Pharmacist 03/18/22 Maya Goyal MD [address] [place] [address] Assigned Pain Medication Provider 10/02/22 03/23/23 Mehdi Bass DPM [address] [facility] [address] [place], [place] [address] Assigned Surgical Provider 10/28/[address] [address] Assigned PCP 10/18/23 documented as of this encounter
--- OUTSIDE RECORDS SUMMARY | 2024-05-19 05:38 | XMS_ITS | Encounter Summary ---
Author Organization [place] Address [address] [place] [address] Care Team Providers Care Systems Software Engineer Name Role Phone Maya Goyal MD Primary Care Provider [phone] Maya Goyal MD Unavailable Mehdi Sen MD Unavailable [phone] Erlin Delcid MD Unavailable Elicia Bedoya [facility] Unavailable [phone] Kae Whipple [facility] Unavailable Mehdi Bass DPM Unavailable [phone] Kae Whipple [facility] Unavailable [phone] Maya Goyal MD Unavailable No Ref-Primary, Physician Primary Care Provider Mehdi Bass DPM Unavailable [phone] [facility] Unavailable Encounter Details Date Type Department Care Team (Late st Contact Info) Description 03/14/2019 Documentation Only [facility] [address] [place] [address] Maya Goyal MD [address] [place] [address] Essential hypertension, benign (Primary Dx); Hyperlipidemia LDL goal <130; Proteinuria, unspecified type; Abnormal blood sugar Social History Tobacco Use Types Packs/Day Years [...] Sex Assigned at Male 09/17/2018 5:00 PM DIVE SUPERINTENDENT Gender Identity Male 09/17/2018 5:00 PM DIVE SUPERINTENDENT Sexual Orientation Straight 09/17/2018 5: 00 PM DIVE SUPERINTENDENT documented as of this encounter Plan of Treatment Not on file documented as of this encounter Results * (ABNORMAL) Albumin Random Urine Quantitative with Creat Ratio (03/14/2019 9:17 AM CDT) Creatinine Urine 239 mg/dL 03/14/2019 8:18 PM CDT [facility] Albumin Urine mg/L 162 mg/L 03/14/2019 8:41 PM CDT [facility] Albumin Urine mg/g Cr 67.78(H) 0 - 17 mg/g Cr 03/14/2019 8:41 PM CDT [facility] Urine specimen (specimen) 03/14/2019 9:17 AM CDT 03/14/2019 9:18 AM CDT Maya Goyal MD LAB - URINE ORDERABL ES [facility] [address] [place] [address] * (ABNORMAL) Hemoglobin A1c (03/14/2019 9:16 AM CDT) Hemoglobin A1C 7.0(H) 0 - 5.6 % 03/14/2019 9:38 AM CDT [facility] Comment: Normal <5.7% Prediabetes 5.7-6.4% ??Diabetes 6.5% or higher - adopted from ADA consensus guidelines. Blood specimen (specimen) 03/14/2019 9:16 AM CDT 03/14/2019 9:17 AM CDT Maya Goyal MD LAB - BLOOD ORDERABL ES [facility] [address] [facility] [address] [place] [address] * (ABNORMAL) Lipid panel reflex to direct LDL Fasting (03/14/2019 9:16 AM CDT) Cholesterol 188 <200 mg/dL 03/14/2019 6:29 PM CDT [facility] Triglycerides 268(H) <150 mg/dL 03/14/2019 6:29 PM CDT [facility] Comment: Borderline high: ??150-199 mg/dl High: ? 200-499 mg/dl Very high: ? >499 mg/dl Fasting specimen HDL Cholesterol 32(L) >39 mg/dL 9 6:36 PM CDT [facility] LDL Cholesterol Calculated 102(H) <100 mg/dL 03/14/2019 6:36 PM CDT [facility] Comment: Above desirable: ??100-129 mg/dl Borderline High: ??130-159 mg/dL High: ? 160-189 mg/dL Very high: ? >189 mg/dl Non HDL Cholesterol 156(H) <130 mg/dL 03/14/2019 6:36 PM CDT [facility] Comment: Above Desirable: ??130-159 mg/dl Borderline high: ??160-189 mg/dl High: ? 190-219 mg/dl Very high: ? >219 mg/dl Blood specimen (specimen) 03/14/2019 9:16 AM CDT 03/14/2019 9:17 AM CDT Maya Goyal MD LAB - BLOOD ORDERABL ES [facility] [address] [place] [address] * (ABNORMAL) Basic metabolic panel (03/14/2019 9:16 AM CDT) Sodium 140 133 - 144 mmol/L 03/14/2019 6:09 PM CDT [facility] Potassium 4.5 3.4 - 5.3 mmol/L 03/14/2019 6:09 PM CDT [facility] Chloride 103 94 - 109 mmol/L 03/14/2019 6:09 PM CDT [facility] Carbon Dioxide 28 20 - 32 mmol/L 03/14/2019 6:29 PM CDT [facility] Anion Gap 9 3 - 14 mmol/L 03/14/2019 6:29 PM CDT [facility] Glucose 155(H) 70 - 99 mg/dL 03/14/2019 6:29 PM CDT [facility] Comment:Fasting specimen Urea Nitrogen 11 7 - 30 mg/dL 03/14/2019 6:29 PM T [facility] Creatinine 0.79 0.66 - 1.25 mg/dL 03/14/2019 6:29 PM CDT [facility] GFR Estimate >90 >60 mL/min/{1 .73_m2} 03/14/2019 6:29 PM CDT [facility] Comment: Non GFR Calc Starting 09/10/2018, serum creatinine based estimated GFR (eGFR) will be calculated using the Chronic Kidney Disease Epidemiology Collaboration (CKD-EPI) equation. GFR Estimate If Black >90 >60 mL/min/{1 .73_m2} 03/14/2019 6:29 PM CDT [facility] Comment: GFR Calc Starting 09/10/2018, serum creatinine based estimated GFR (eGFR) will be calculated using the Chronic Kidney Disease Epidemiology Collaboration (CKD-EPI) equation. Calcium 9.3 8.5 - 10.1 mg/dL 03/14/2019 6:29 PM CDT [facility] Blood specimen (specimen) 03/14/2019 9:16 AM CDT 03/14/2019 9:17 AM CDT Maya Goyal MD LAB - BLOOD ORDERABL ES [facility] [address] [place] [address] documented in this encounter Visit Diagnoses Diagnosis Essential hypertension, benign- Primary Hyperlipidemia LDL goal <130 Other and unspecified hyperlipidemia Proteinuria, unspecified type Abnormal blood sugar Other abnormal glucose documented in this encounter Additional Health Concerns Infection Onset Date Last Indicated Resolved Time COVID-19 08/27/2020 08/27/2020 09/17/2020 11:4 0 PM DIVE SUPERINTENDENT Assessment Noted Time PHQ-9 Depression Total Score: 4 09/23/20 18 2:33 PM DIVE SUPERINTENDENT documented as of this encounter Care Teams Systems Software Engineer Relationship Specialty Start Date End Date Maya Goyal MD [address] [place] [address] PCP - General 05/03/04 11/14/22 No Ref-Primary, Physician PCP - General 11/15/22 Maya Goyal MD [address] [place] [address] Assigned PCP 06/27/12 10/17/23 Mehdi Sen MD [address] [place] [address] Assigned Musculoskeletal Provider 07/16/20 12/18/20 Erlin Delcid MD [address] [address] Assigned Surgical Provider 09/12/20 Elicia Bedoya [facility] [address] [facility] [address]12 [place] [address] Pharmacist Pharmacist 11/09/20 12/06/20 Kae Whipple [facility] [address] [place] [address] Pharmacist Pharmacist 11/30/20 12/06/20 Mehdi Bass DPM [id number] [place] [address] [address] [place] [address] Assigned Musculoskeletal Provider 08/14/21 10/27/22 Kae Whipple [facility] [address] [place] [address] Assigned MTM Pharmacist 03/18/22 Maya Goyal MD [address] [facility] [address] [place] [address] Assigned Pain Medication Provider 10/02/22 03/23/23 Mehdi aBss DPM [address] [facility] [address] [place] [address] Assigned Surgical Provider 10/28/22 [facility] [address] [place] [address] Assigned PCP 10/18/23 documented as of this encounter
--- OUTSIDE RECORDS SUMMARY | 2024-05-19 05:38 | XMS_ITS | Encounter Summary ---
Author Organization [place] Address [address] [place] [address] Care Team Providers Care Secretary Name Role Phone Maya Goyal MD Primary Care Provider [phone] Maya Goyal MD Unavailable Mehdi Sen MD Unavailable [phone] Erlin Delcid MD Unavailable [phone] Elicia Bedoya [facility] Unavailable [phone] Kae Whipple [facility] Unavailable Mehdi Bass DPM Unavailable [phone] Kae Whipple [facility] Unavailable [phone] Maya Goyal MD Unavailable No Ref-Primary, Physician Primary Care Provider Mehdi Bass DPM Unavailable [phone] [facility] Unavailable Reason for Visit * Reason Onset Date Comments Appointment 08/24/2020 Referral to Urol jacy Encounter Details Date Type Department Care Team (Late st Contact Info) Description 08/24/2020 [facility] [address] [place] [address] Unknown Appointment (Referral to Urology) Social History Tobacco Use Types Packs/Day Years Used Date Smoking Tobacco: Former Cigarettes 0.5 20 0 03/18/1999 - 03/18/2019 Smokeless Tobacco: Never Comments:using e-cigarette Alcohol Use Standard Drinks/Week Comments Yes 0 (1 standard drink = 0.6 oz pure alcohol) No alcohol since 08/31/2018 - Currently in program PHQ-2 Answer Date Recorded PHQ-2 Score 1 04/15/2020 Sex and Gender Information Value Date Recorded Sex Assigned at Male 09/17/2018 5:00 PM 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 No / Unsure 08/27/2020 11:58 AM STRUCTURAL STEEL ENGINEER documented as of this encounter Miscellaneous Notes * Telephone Encounter - Smitha Harris - 08/24/2020 1:34 PM CST [facility] Phone Message May a detailed message be left on voicemail: yes Reason for Call: Appointment Intake Referring Provider Name: Dr. Maya Goyal Diagnosis and/or Symptoms: change in urine stream Spoke with patient to schedule appointment and offered video. Patient declined. Patient would like to see if a telephone appointment would be available. Please call him directly to discuss. Thanks! Action Taken: Message routed to: Other: [facility] [place] Travel Screening: Not Applicable CTURAL STEEL ENGINEER documented in this encounter Plan of Treatment Not on file documented as of this encounter Visit Diagnoses Not on filedocumented in this encounter Additional Health Concerns Infection Onset Date Last Indicated Resolved Time COVID-19 08/27/2020 08/27/2020 09/17/2020 11:4 0 PM STRUCTURAL STEEL ENGINEER Assessment Noted Time PHQ-9 Depression Total Score: 10 020 8:55 AM CDT documented as of this encounter Care Teams Secretary Relationship Specialty Start Date End Date Maya Goyal MD [address] [facility] [address] [place] [address] PCP - General 05/03/04 11/14/22 No Ref-Primary, Physician PCP - General 11/15/22 Maya Goyal MD [address] [facility] [address] [place] [address] Assigned PCP 06/27/12 10/17/23 Mehid Sen MD [address] [place] [address] Assigned Musculoskeletal Provider 07/16/20 12/18/20 Erlin Delcid MD [address] [facility] [address] [address] Assigned Surgical Provider 09/12/20 Elicia Bedoya [facility] [address] [place] [address] 8[address] [place] [address] Pharmacist Pharmacist 11/09/20 12/06/20 Kae Whipple [facility] [address] [place], [place] [address] Pharmacist Pharmacist 11/30/20 12/06/[address] Mehdi Bass [address] [facility] [address] [place], [place] [address] Assigned Musculoskeletal Provider 08/14/21 10/27/22 Kae Whipple [facility] [address] [place], [place] [address] Assigned MTM Pharmacist 03/18/22 Maya Goyal MD [address] [facility] [address] [place], [place] [address] Assigned Pain Medication Provider 10/02/22 03/23/[address] [facility] [address] [place], [place] [address]407 Assigned Surgical Provider 10/28/[address] [address] Assigned PCP 10/18/23 documented as of this encounter
--- OUTSIDE RECORDS SUMMARY | 2024-05-19 05:38 | XMS_ITS | Encounter Summary ---
Author Organization [facility] Address [address] [place] [address] Care Team Providers Care Salt Lifter Name Role Phone Maya Goyal MD Primary Care Provider [phone] Maya Goyal MD Unavailable Mehdi Sen MD Unavailable [phone] Erlin Delcid MD Unavailable [phone] Elicia Bedoya [facility] Unavailable Kae Whipple [facility] Unavailable Mehdi Bass DPM Unavailable [phone] Kae Whipple [facility] Unavailable Maya Goyal MD Unavailable No Ref-Primary, Physician Primary Care Provider Mehdi Bass DPM Unavailable [phone] [facility] Unavailable Reason for Visit * Reason Comments Medication Refill Encounter Details Date Type Department Care Team (Late st Contact Info) Description 09/30/2020 [facility] [address] [place] [address] Maya Goyal MD [address] [place] [address] Medication Refill Social History Tobacco [...] Sex Assigned at Male 09/17/2018 5:00 PM HAND TACKER Gender Identity Male 09/17/2018 5:00 PM HAND TACKER Sexual Orientation Straight 09/17/2018 5: 00 PM HAND TACKER COVID-19 Exposure Response Date Recorded In the last month, have you been in contact with someone who was confirmed or suspected to have Coronavirus / COVID-19? Yes 09/07/2020 1:45 PM HAND TACKER documented as of this encounter Miscellaneous Notes * Telephone Encounter - Eva Garcia LPN - 10/05/2020 11:58 AM HAND TACKER Spoke with Patient he is aware and transferred to appiontment desk BMeron Garcia LPN TACKER * Telephone Encounter - Basilia Felipe MD - 10/01/2020 4:04 PM HAND TACKER Please have him schedule an apptsoon, as he is almost due for diabetic check and can recheck sodiumsame time TACKER * Telephone Encounter - India Tapia RN - 10/01/2020 9:58 AM CST Routing refill request to provider for review/approval because: Labs out of range: Sodium Date Value Ref Range Status 05/24/2020 127 (L) 133 - 144 mmol/L Final India Tapia RN, BSN TACKER documented in this encounter Plan of Treatment Not on file documented as of this encounter Visit Diagnoses Diagnosis Benign essential hypertension Essential hypertension, benign documented in this encounter Additional Health Concerns Assessment Noted Time PHQ-9 Depression Total Score: 10 020 8:55 AM CDT documented as of this encounter Care Teams Salt Lifter Relationship Specialty Start Date End Date Maya Goyal MD [address] [facility] [address] [place] [address] PCP - General 05/03/04 11/14/22 No Ref-Primary, Physician PCP - General 11/15/22 Maya Goyal MD [address] [facility] [address] [place] [address] Assigned PCP 06/27/12 10/17/23 Mehdi Sen MD [address] [place], [place] [address] Assigned Musculoskeletal Provider 07/16/20 12/18/20 Erlin Delcid MD [address] [facility] [address] [address] Assigned Surgical Provider 09/12/20 Elicia Bedoya [facility] [address] [place] [address] 8[address] [place] [address] Pharmacist Pharmacist 11/09/20 12/06/20 Kae Whipple [facility] [address] [place], [place] [address] Pharmacist Pharmacist 11/30/20 12/06/20 [place] [address] [facility] [address] [place] [address] Assigned Musculoskeletal Provider 08/14/21 10/27/22 Kae Whipple [facility] [address] [place] [address] Assigned MTM Pharmacist 03/18/22 Maya Goyal MD [address] [facility] [address] [place] [address] Assigned Pain Medication Provider 10/02/22 03/23/23 Mehdi Bass DPM [address] [facility] [address] [place], [place] [address] Assigned Surgical Provider 10/28/22 [facility] [address] [place] [address] Assigned PCP 10/18/23 documented as of this encounter
--- OUTSIDE RECORDS SUMMARY | 2024-05-19 05:39 | XMS_ITS | Data Portability ---
Author Organization [facility], [facility] Address [address] [place] [address] Care Team Providers Care Grinding Machine Operator Portable Name Role Phone AMANDEEP TODD Primary Care Provider [phone] Assessment Encounter Date Assessment Date Assessment LastModified by Organization Details LastModified Time 05/31/2022 05/31/2022 61 yoM with urinary frequency, urgency, and nocturia Not available 05/31/2022 07:08:34 12/27/2022 12/27/2022 62 yoM with urinary frequency, urgency, and nocturia rstromquist Not available 12/25/2022 15:08:09 05/30/2023 05/30/2023 62 yoM with urinary frequency, urgency, and nocturia rstromquist Not available 04/25/2023 12:23:11 Plan of Treatment Reminders Order Date Submit Date Provider Last Modified By Organization Details Last Modified Time Details Appointments None recorded. Lab None recorded. Referral None recorded. Procedures None recorded. Surgeries None recorded. Imaging None recorded. Medication Orders tamsulosin 0.4 mg capsule 2022 023 [facility], [address], [place], [address], 10:23:19 finasteride 5 mg tablet 2022 023 [facility], [address], [place], [address], 3 10:23:19 finasteride 5 mg tablet 2022 023 [facility], [address], [place], [address], 3 15:52:06 tamsulosin 0.4 mg capsule 2022 023 [facility], [address], [place], [address], 3 15:52:06 Patient TargetsNo targets recorded. Patient InstructionsNo instructions recorded. Reason for Referral None Reported. Results Created Date Observation Date Name Description Value Unit Range Abnormal Flag LastModifiedBy Organization Detail LastModifiedTime 06/02/20 22 05/31/2022 bladd er scan (PROC ) No observ ation record ed. Not Available 12/27/2022 13:42:21 01/03/20 23 12/27/2022 bladd er scan (PROC ) No observ ation record ed. BARCODE Not Available 01/02/2023 09:04:36 Result Notes None recorded. Procedures Surgical History Date Name Laterality Status Provider Name and Address Organization Details Recorded Time 3 Bladder Scan completed Asuncion pepe [facility] 12/27/2022 10:13:26 2 Bladder Scan completed Gris pepe [facility] 05/31/2022 11:23:55 9 colonoscopy completed Gris pepe [facility] 05/31/2022 11:23:05 Imaging Results Imaging Date Name Status LastModified by Organiz ation Details LastModified Time 05/31/2022 bladder scan (PROC) completed [email or web address] Information not available 12/27/2022 13:42:21 12/27/2022 bladder scan (PROC) completed BAR[facility] Information not available 01/02/2023 09:04:36 Procedure Notes None recorded. Medical Equipment None Reported. Allergies No known drug allergies Medications Name Sig Start Date Stop Date Status Note LastModified by Organization Details LastModified Time methocarbam ol 500 mg tablet TAKE ONE TABLET BY MOUTH EVERY 6 HOURS NEEDED FOR MUSCLE SPASMS active Not Available Not Available No t Available metformin 500 mg tablet TAKE TWO TABLETS BY MOUTH EVERY MORNING AND TWO IN THE EVENING WITH MEALS active Not Available Not Available No t Available neomycin-po lymyxin-hyd rocort 3.5 mg/mL-10,00 0 unit/mL-1 % ear solution active Not Available Not Available Not Available carvedilol 25 mg tablet TAKE TWO TABLETS BY MOUTH TWICE A DAY WITH MEALS active Not Available Not Available No t Available venlafaxine ER 75 mg capsule,ext ended release 24 hr TAKE ONE CAPSULE BY MOUTH ONCE DAILY WITH A 150MG CAPSULE active Not Available Not Available No t Available tizanidine 2 mg tablet TAKE ONE TABLET BY MOUTH ONCE DAILY NEEDED AT BEDTIME active Not Available Not Available No t Available tizanidine 4 mg tablet TAKE ONE TABLET BY MOUTH AT BEDTIME active Not Available Not Available No t Available glipizide ER 10 mg tablet, extended release 24 hr TAKE TWO TABLETS BY MOUTH EVERY DAY 12/27 completed Not Available Not Available Not Available venlafaxine ER 150 mg capsule,ext ended release 24 hr TAKE ONE CAPSULE BY MOUTH ONCE DAILY WITH EVENING MEAL active Not Available Not Available No t Available amlodipine 5 mg tablet TAKE ONE TABLET BY MOUTH ONCE DAILY active Not Available Not Available No t Available meloxicam 7.5 mg tablet TAKE ONE TABLET BY MOUTH ONCE DAILY active Not Available Not Available No t Available methocarbam ol 750 mg tablet TAKE ONE TABLET BY MOUTH TWICE A DAY - DO NOT TAKE WITH TIZANIDIN E active Not Available Not Available No t Available tamsulosin 0.4 mg capsule TAKE ONE CAPSULE BY MOUTH ONCE DAILY 2023 active Not Available Not Available Not Avai lable trazodone 100 mg tablet TAKE TWO TABLETS BY MOUTH AT BEDTIME 12/27 completed Not Available Not Available Not Available amitriptyli ne 10 mg tablet TAKE TWO TABLETS BY MOUTH EVERY DAY AT BEDTIME active Not Available Not Available No t Available amlodipine 10 mg tablet TAKE ONE TABLET BY MOUTH ONCE DAILY active Not Available Not Available No t Available gabapentin 300 mg capsule TAKE ONE CAPSULE BY MOUTH THREE TIMES A DAY active Not Available Not Available No t Available ammonium lactate 12 % topical cream APPLY TO AFFECTED AREA(S) TWO TIMES A DAY active Not Available Not Available No t Available furosemide 20 mg tablet TAKE ONE TABLET BY MOUTH EVERY MORNING active Not Available Not Available No t Available gabapentin 100 mg capsule TAKE ONE CAPSULE BY MOUTH THREE TIMES A DAY FOR 7 DAYS , TAKE TWO CAPSULES BY MOUTH THREE TIMES A DAY FOR 7 DAYS , THEN 3 CAPSULES THREE HARRY active Not Available Not Available No t Available lisinopril 10 mg-hydrochl orothiazide 12.5 mg tablet TAKE ONE TABLET BY MOUTH ONCE DAILY active Not Available Not Available No t Available benazepril 40 mg tablet TAKE ONE TABLET BY MOUTH ONCE DAILY active Not Available Not Available No t Available metformin ER 500 mg tablet,exte nded release 24 hr TAKE TWO TABLETS BY MOUTH TWICE A DAY WITH FOOD 12/27 completed Not Available Not Available Not Available finasteride 5 mg tablet Take 1 tablet every day by oral route. 2022 active Not Available Not Available Not Avai lable spironolact one 50 mg tablet TAKE ONE TABLET BY MOUTH TWICE A DAY 12/27 completed Not Available Not Available Not Available oxycodone 5 mg tablet TAKE 1 TABLET BY MOUTH EVERY 8-12 HOURS NEEDED (MAX 3/DAY). *CAUTION: OPIOID. RISK OF OVERDOSE AND ADDICTION . active Not Available Not Available No t Available buprenorphi ne HCl [address] ONE TABLET UNDER THE TONGUE TWICE A DAY . USE 2- 022 05/30 completed Not Available Not Available Not Available rosuvastati n 5 mg tablet TAKE ONE TABLET BY MOUTH AT BEDTIME active Not Available Not Available No t Available duloxetine 30 mg capsule,del ayed release TAKE ONE CAPSULE BY MOUTH ONCE DAILY FOR 7 DAYS 12/27 completed Not Available Not Available Not Available duloxetine 60 mg capsule,del ayed release TAKE ONE CAPSULE BY MOUTH ONCE DAILY active Not Available Not Available No t Available UltiCare Pen Needle 31 gauge x 5/16 DIRECTED active Not Available Not Available No t Available Lantus Solostar U-100 Insulin 100 unit/mL (3 mL) subcutaneou s pen INJECT 38 UNITS SUBCUTANE OUSLY EVERY MORNING AND 38 UNITS BEFORE BEDTIME active Not Available Not Available No t Available Fiasp FlexTouch U-100 Insulin 100 unit/mL (3 mL) subcutaneou s pen INJECT 8 UNITS UNDER THE SKIN TWICE DAILY BEFORE MEALS. 94 DAY SUPPLY active Not Available Not Available No t Available UltiGuard SafePack-Pe n Needle 31 gauge x 5/16 USE DIRECTED ONCE DAILY 12/27 completed Not Available Not Available Not Available Vitals Date Recorded Body height Body mass index (BMI) Body weight Provider Name and Address Organization Details Last Updated DateTime 05/31/2022 187.96 cm 41.2 kg/m2 028423.15 g Gris Dwyer [facility] 05/31/2022 11:22:11 Date Recorded Body height Body mass index (BMI) Body weight Provider Name and Address Organization Details Last Updated DateTime 12/27/2022 187.96 cm 41.2 kg/m2 819265.15 cinthia Batres [facility] 12/27/2022 10:15:31 Date Recorded Body height Body mass index (BMI) Body weight Provider Name and Address Organization Details Last Updated DateTime 05/30/2023 187.96 cm 41.2 kg/m2 901416.15 cinthia Dhaval Cruz MD [address], [place], [address] 05/30/2023 15:20:19 Social History Question Answer Notes LastModified by Organizat ion Details LastModified Time Tobacco Smoking Status Former Smoker Gris Dwyer afshin, [facility] 05/31/2022 11:22:52 What Is Your Level Of Alcohol Consumption? Moderate Information not available 05/30/2023 What Is Your Level Of Caffeine Consumption? Heavy Information not available 05/30/2023 When Did You Quit Smoking? 1-5yearssincel astcigarette [email or web address] Information not available 05/31/2022 What Was The Date Of Your Most Recent Tobacco Screening? 05/30/2023 Information not available 05/30/2023 Sex: Unknown Functional Status None recorded. Mental Status None recorded. Family History Relationship Description Onset Age of this Age Resolved Age Notes Sister Family history of breast cancer Maternal Grandmother Malignant tumor of ovary Medical History Condition Response High Blood Pressure Y High Cholesterol Y Diabetes Y Immunizations Vaccine Type Date Status Provider Name and Address Organization Details Recorded Time Tdap 06/24/2010 completed Dhaval Cruz MD [address], [place], [address], [facility] 05/30/2023 15:20:28 Tdap 07/19/2016 completed Dhaval Cruz MD [address], [place], [address], [facility] 05/30/2023 15:20:28 Hep A-Hep B 12/28/2010 completed Dhaval Cruz MD [address], [place], [address], [facility] 05/30/2023 15:20:28 Hep A-Hep B 06/24/2010 completed Dhaval Cruz MD [address] [place] [address],[address], [place], [address], [facility] 05/30/2023 15:20:28 Hep A-Hep B 07/25/2010 completed Dhaval Cruz MD [address] [place] [address],[address], [place], [address], [facility] 05/30/2023 15:20:28 zoster recombinant 10/23/2022 completed Oumou pepe [facility] 07/25/2023 13:14:35 zoster recombinant 12/25/2022 completed Oumou pepe [facility] 07/25/2023 13:14:35 Past Encounters Encounter ID Performer Location Encounter Start Date Encounter Closed Date Diagnosis/Indication Diagnosis SNOMED-CT Code [id number] MD [facility] [address] [place] [address] 05/31/2022 11:07:00 06/05/2022 15:44:25 Increased frequency of urination [id number] Nocturia [id number] Urgent cheyanne carlyle to urinate [id number] MD [facility] [address] [place] [address] 12/27/2022 10:02:20 12/29/2022 11:02:58 Increased frequency of urination [id number] Nocturia [id number] Urgent cheyanne carlyle to urinate [id number] MD [facility] [address] [place] [address] 03/29/2023 12:04:24 04/04/2023 09:06:12 [id number] Marisol Donaldson [facility] [address] [place] [address] 04/05/2023 09:56:42 04/13/2023 07:37:49 [id number] MD [facility] [address] [place] [address] 05/30/2023 15:13:21 06/05/2023 12:26:38 Increased frequency of urination [id number] Nocturia [id number] Urgent cheyanne carlyle to urinate [id number] Health Concerns Section Related Observation LastModified by Organization Detai ls LastModified Time None Recorded Concern Status LastModified by Organization Details LastModified Time None Recorded Advance Directives Directive None Recorded Payers Encounter Date Sequence Insurance Name Policy Number Policy Dobson Covered Member ID Dobson Member ID Guarantor Name 05/31/2022 1 [employer] (MEDICARE REPLACEMENT/A DVANTAGE - PPO) Rafa Hickey [id number] Rafa Hickey 12/27/2022 1 [employer] (MEDICARE REPLACEMENT/A DVANTAGE - PPO) Rafa Hickey [id number] Rafa Hickey 03/29/2023 1 [employer] (MEDICARE REPLACEMENT/A DVANTAGE - PPO) Rafa Hickey [id number] Rafa Hickey 04/05/2023 1 [employer] (MEDICARE REPLACEMENT/A DVANTAGE - PPO) Rafa Hickey [id number] Rafa Hickey 05/30/2023 1 [employer] (MEDICARE REPLACEMENT/A DVANTAGE - PPO) Rafa Hickey [id number] Rafa Hickey Notes Date Note Type Note Provider Name and Address Organization Details Recorded Time 05/31/2022 text/html HPI Notes: 61 ye ar old male with history of urinary frequency, urgency, and nocturia. Patient started on combination therapy tamsulosin and finasteride at last visit. PVR at that time noted to be 132 ml. Today he reports improved emptying and flow with combination therapy. He has overall feels like his urination is improving. Occasionally still has to push seen today with his who provides some history. Dhaval Cruz MD [address], [place], [address], [facility] 05/31/2022 13:15:14 12/27/2022 text/html HPI Notes: 62 ye ar old male with history of urinary frequency, urgency, and nocturia. Patient started on combination therapy tamsulosin and finasteride at last visit. PVR at that time noted to be 132 ml. Today he reports improved emptying and flow with combination therapy. He has overall feels like his urination is improving. Occasionally still has to push seen today with his who provides some history. 12/27/2022: Here for f/u urinary frequency, urgency, and nocturia. Maintained on combination therapy tamsulosin and finasteride. Today reports significant return of irritative symptoms but this has been since he self-discontinued his medications. Dhaval Cruz MD [address] [place] [address],[address], [place], [address], [facility] 12/27/2022 13:46:55 05/30/2023 text/html HPI Notes: 62 ye ar old male with history of urinary frequency, urgency, and nocturia. Patient started on combination therapy tamsulosin and finasteride at last visit. PVR at that time noted to be 132 ml. Today he reports improved emptying and flow with combination therapy. He has overall feels like his urination is improving. Occasionally still has to push seen today with his who provides some history. 12/27/2022: Here for f/u urinary frequency, urgency, and nocturia. Maintained on combination therapy tamsulosin and finasteride. Today reports significant return of irritative symptoms but this has been since he self-discontinued his medications. 04/26/2023: Here for f/u urinary frequency, urgency, and nocturia. He was unable to complete [facility]. He was therefore scheduled for urodynamics but it does not appear that he made this appointment. 05/30/2023: Here for f/u urinary frequency, urgency, and nocturia. He was unable to complete [facility]. Does report significant improvement since returning back on combination therapy. Seen today with his provides some of the history. Dhaval Cruz MD [address] [place] [address],[address], [place], [address], [facility] 05/30/2023 15:53:07
--- OUTSIDE RECORDS SUMMARY | 2024-05-19 05:39 | XMS_ITS | Patient Health Record ---
Author Organization [facility] Address [address] [place] [address] [address] [place] [address] Care Team Providers Care Branch Account Executive Name Role Phone Caryl Shi Primary Care Provider UnavailKarlo Wilkins Unavailable [phone] Catia Swift MD Unavailable Unavailable Collin Tafoya Unavailable [phone] Kash Valdez Unavailable [phone] Michael Suárez Unavailable [phone] Allergies No Known Allergies Results Component Value Reference Range Notes Urine toxicology Reviewed date:09/27/2023 11:33:39 AM Interpretation:See results Performing Lab: Notes/Report: See results OPI 300 0 Reason For Referral No Information Medications Medication SIG (Take, Route, Frequency, Duration) Notes Start Date End Date Status Tamsulosin HCl 0.4 MG Oral for 90 Days Active traZODone HCl 100 MG Oral for 90 Days Active Carvedilol 25 MG Oral for 90 Days Active amLODIPine Besylate 5 MG Oral for 90 Days Active Spironolactone 50 MG Oral for 30 Days Active Furosemide 20 MG Oral for 90 Days Active Finasteride 5 MG TAKE ONE TABLET BY MOUTH ONCE DAILY Oral for 30 Days Active DULoxetine HCl 60 MG Oral for 30 Days Active Meloxicam 7.5 MG 1 tablet Orally Once a day for 30 days Active Methocarbamol 750 MG 1 tablet Orally(muscle relaxant for daytime use, Do not take with Tizanidine- only take 1 tablet at a time) Twice a day for 30 days Active tiZANidine HCl 4 MG 1 tablet as needed Orally once a day at bedtime for 30 days Active Lantus SoloStar 100 UNIT/ML Subcutaneous for 17 Days Active UltiCare Short Pen Hilger 31G X 8 MM DIRECTED for 30 Days Active oxyCODONE HCl 5 MG 1 tablet as needed Orally every 8-12 hours (max #3/day, ok to fill 05/10/2024) for 30 days Low back pain, unspecified M54.50, G89.29 05/10/2024 Active Social History Tobacco Use: Social History Observation Description Date Details (start date - stop date) Unknown Tobacco Use/Smoking: Question Answer Notes Are you a Uses tobacco in other forms Additional Findings: Tobacco User e-Cigarette Alcohol Screen Question Answer Notes Did you have a drink containing alcohol in the p ast year? No Points 0 Interpretation Negative Problems Problem Type SNOMED Code ICD Code Onset Dates Problem Status W/U Status Risk Notes Problem Opioid dependence (33405180) Opioid dependence, uncomplicated (F11.20) Active confirmed Problem Chronic pain (72908815) Other chronic pain (G89.29) Active confirmed Problem Primary osteoarthritis (139590477) Unilateral primary osteoarthritis, right knee (M17.11) Active confirmed Problem Osteoarthritis of knee (737978825) Unilateral primary osteoarthritis, left knee (M17.12) Active confirmed Problem Acquired spondylolisthesis (316339938) Spondylolysis, lumbosacral region (M43.07) Active confirmed Problem Lumbosacral radiculopathy (4058242) Radiculopathy, lumbosacral region (M54.17) Active confirmed Problem Low back pain (794243618) Low back pain, unspecified (M54.50) Active confirmed Vital Signs Blood pressure diastolic 84 mm Hg 04/08/2024 Height 74 in 04/08/2024 Blood pressure systolic 132 mm Hg 04/08/2024 Weight 337 lbs 04/08/2024 BMI 43.26 kg/m2 04/08/2024 Encounters Encounter Location Date Provider Diagnosis [facility] [address] [place] [address] 05/31/2023 Kash Valdez Other chronic pain G89.29 ; Radiculopathy, lumbosacral region M54.17 ; Cervicalgia M54.2 ; Spondylolysis, lumbosacral region M43.07 ; [facility] (current) use of opiate analgesic Z79.891 and Opioid dependence, uncomplicated F11.20 [facility] [address] [place] [address] 06/28/2023 Kashruth Valdez Other chronic pain G89.29 ; Radiculopathy, lumbosacral region M54.17 ; Cervicalgia M54.2 and Spondylolysis, lumbosacral region M43.07 [address] [facility] [address] [place] [address] 07/26/2023 Kashruth Valdez Other chronic pain G89.29 ; Radiculopathy, lumbosacral region M54.17 ; Cervicalgia M54.2 and Spondylolysis, lumbosacral region M43.07 [address] [facility] [address] [place] [address] 08/30/2023 Kash Valdez Other chronic pain G89.29 ; Radiculopathy, lumbosacral region M54.17 ; Cervicalgia M54.2 and Spondylolysis, lumbosacral region M43.07 [address] [facility] [address] [address] 09/06/2023 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 Valdez [employer]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 and Opioid dependence, uncomplicated F11.20 [facility] [address] [facility] [address] [address] 10/04/2023 Kashruth Valdez Spondylolysis, lumbosacral region M43.07 ; Radiculopathy, lumbosacral region M54.17 ; Cervicalgia M54.2 and Other chronic pain G89.29 [facility] [address] [facility] [address] [place] [address] 11/08/2023 Kashruth Valdez Spondylolysis, lumbosacral region M43.07 ; Radiculopathy, lumbosacral region M54.17 ; Cervicalgia M54.2 and Other chronic pain G89.29 [address] [facility] [address] [place] [address] 12/04/2023 Michael Suárez Other chronic pain G89.29 ; Low back pain, unspecified M54.50 ; Opioid dependence, uncomplicated F11.20 ; [facility] (current) use of opiate analgesic Z79.891 and Encounter for screening for other disorder Z13.89 [facility] [address] [facility] [address] [place] [address] 01/03/2024 Michael Jose Armando Other chronic pain G89.29 and Low back pain, unspecified M54.50 [address] [facility] [address] [place] [address] 02/07/2024 Kash Valdez Other chronic pain G89.29 and Low back pain, unspecified M54.50 [address] [facility] [address] [place] [address] 03/11/2024 Michael Jose Armando Other chronic pain G89.29 and Low back pain, unspecified M54.50 [address] [facility] [address] [place] [address] 04/08/2024 Michael Jose Armando Other chronic pain G89.29 and Low back pain, unspecified M54.50 [facility] [address] [place] [address] 05/02/2024 Michael Suárez Other chronic pain G89.29 [facility] [address] [place] [address] [address] [place] [address] 07/19/2023 Karlo Ortiz Other chronic pain G89.29 [facility] [address] [place] [address] [address] [place] [address] 08/01/2023 Karlo Ortiz Other chronic pain G89.29 [facility] [address] [place] [address] [address] [place] [address] 08/07/2023 Collin Tafoya Other chronic pain G89.29 [facility] [address] [place] [address] [address] [place] [address] 08/23/2023 Karlo Ortiz [address] [facility] [address] [facility] [address] [place] [address] 08/30/2023 Kash Valdez [address] [facility] [address] [facility] [address] [place] [address] 01/03/2024 Michael Suárez [facility] [address] [place] [address] [address] [place] [address] 04/23/2024 Karlo Cohene Assessments Encounter Date Diagnosis (ICD Code) Assessment Notes Treatment Notes Treatment Clinical Notes 05/31/2023 Other chronic pain (ICD-10 - G89.29) Rafa returns to clinic today for a follow up evaluation regarding his chronic low back, neck, and bilateral knee pain. I have reviewed the [facility] database and did not find any inconsistencies. We discussed his current symptoms and medications. I will continue with a treatment plan consisting of conservative therapy at this time. I recommend a roostercomb injection for his knees and recommended he discuss this with Dr. Srinath Curiel as he prefers to have injections done there. Regarding medication, I refilled his Oxycodone 5MG as this continues to provide him with adequate pain relief. He consented to an oral tox screening today. This treatment plan was reviewed with Rafa, and he was agreeable. I will continue to monitor his progress and he will follow up in one month or sooner if needed. Plan:1. Refill Oxycodone 5MG 2. Consider MARCELINO knee injection with Dr. Srinath Curiel 3. Follow up in one month 4. Oral Tox screen today Discharge instructions reviewed verbally. Discussed the risks/benefits of prescribed medication. The patient is aware that medication may be discontinued at any time due to poor compliance with visits, and recommended treatment and/or if patient doesn't adhere to the signed pain contract. The patient was instructed to return to the office as scheduled and call with any questions, problems or concerns. 06/28/2023 Other chronic pain (ICD-10 - G89.29) Rafa returns to clinic today for a follow-up evaluation regarding his chronic low back, neck, and bilateral knee pain. I have reviewed the [facility] database and did not find any inconsistencies. We discussed his current symptoms and medications I have recommended that Vinod go to see his PCP or urgent care today for the wound on his right rosen. Based off the color leakage on the bandage and his initial care of the wound, allowing his dogs to lick it, I am concerned that it may be infected. He declined to have me remove his dressing. Furthermore, due to his diabetes, if this wound becomes infected and is not properly treated I informed Vinod that he could become septic and or lose his limb. I have also recommended Vinod discuss his ongoing dizziness with his PCP. Since he has been seen by the [facility] and this dizziness continues, I am recommending he has a head CT with his PCP. Regarding medication, I refilled his Oxycodone 5MG as this continues to provide him with adequate pain relief. He consented to an oral tox screening today. This treatment plan was reviewed with Rafa, and he was agreeable. I will continue to monitor his progress and he will follow up in one month or sooner if needed. Plan:1. Refill Oxycodone 5 MG2. Recommended seeing urgent care for wound care/abx.3. Recommended seeing PCP for dizziness 4. Follow-up in one month Discharge instructions reviewed verbally. Discussed the risks/benefits of prescribed medication. The patient is aware that medication may be discontinued at any time due to poor compliance with visits, and recommended treatment and/or if patient doesn't adhere to the signed pain contract. The patient was instructed to return to the office as scheduled and call with any questions, problems or concerns. 07/19/2023 Other chronic pain (ICD-10 - G89.29) 07/26/2023 Other chronic pain (ICD-10 - G89.29) Rafa returns to clinic today for a follow-up evaluation regarding his chronic low back, neck, and bilateral knee pain. I have reviewed the [facility] database and did not find any inconsistencies. We discussed his current symptoms and medications. Regarding medication, I refilled his Oxycodone 5MG as this continues to provide him with adequate pain relief. He consented to an oral tox screening today. This treatment plan was reviewed with Rafa, and he was agreeable. I will continue to monitor his progress and he will follow up in one month or sooner if needed. Plan:1. Refill Oxycodone 5 MG2. Follow-up in one month Discharge instructions reviewed verbally. Discussed the risks/benefits of prescribed medication. The patient is aware that medication may be discontinued at any time due to poor compliance with visits, and recommended treatment and/or if patient doesn't adhere to the signed pain contract. The patient was instructed to return to the office as scheduled and call with any questions, problems or concerns. 08/01/2023 Other chronic pain (ICD-10 - G89.29) 08/07/2023 Other chronic pain (ICD-10 - G89.29) 08/30/2023 Other chronic pain (ICD-10 - G89.29) Rafa returns to clinic today for a follow-up evaluation regarding his chronic low back, neck, and bilateral knee pain. I have reviewed the [facility] database and did not find any inconsistencies. We discussed his current symptoms and medications. Rafa left before he was able to provide us with an updated UDS today due to his oral tox screen not being refridgerated. I printed a prescription for his Oxycodone today, but did not provide him with this since he did not complete the UDS. We will call him to inquire about providing a UDS next week, but if he does not consent to this, then no more medication may be prescribed. This treatment plan was reviewed with Rafa, and he was agreeable. I will continue to monitor his progress and he will follow up in one month or sooner if needed. Plan:1. UDS at NOV2. Refill Oxycodone 5 MG once UDS is provided. Printed Rx at front desk3. Follow-up in one month Discharge instructions reviewed verbally. Discussed the risks/benefits of prescribed medication. The patient is aware that medication may be discontinued at any time due to poor compliance with visits, and recommended treatment and/or if patient doesn't adhere to the signed pain contract. The patient was instructed to return to the office as scheduled and call with any questions, problems or concerns. 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 I have reviewed the [facility] database and did not find any inconsistencies. We discussed his current symptoms and medications. I will continue with a treatment plan consisting of medication management at this time. Regarding medications, I am refilling his Oxycodone and providing him #70 tabs since this provides him with moderate pain relief without side effects at this time. This treatment plan was reviewed with Vinod, and he was agreeable. I will continue to monitor his progress and he will follow up in one month or sooner if needed. Plan:1. Refill Oxycodone - printed script2. Follow-up in one month Discharge instructions reviewed verbally. Discussed the risks/benefits of prescribed medication. The patient is aware that medication may be discontinued at any time due to poor compliance with visits, and recommended treatment and/or if patient doesn't adhere to the signed pain contract. The patient was instructed to return to the office as scheduled and call with any questions, problems or concerns. 12/04/2023 Low back pain, unspecified (ICD-10 - M54.50) 01/03/2024 Other chronic pain (ICD-10 - G89.29) Rafa returns to clinic today for a follow-up evaluation regarding his acute on chronic pain. I have reviewed the [facility] database and did not find any inconsistencies. We discussed his current symptoms and medications. I will continue with a treatment plan consisting of medication management at this time. Regarding medications, I am refilling his Oxycodone and providing him #70 tabs since this provides him with moderate pain relief without side effects at this time. This treatment plan was reviewed with Vinod, and he was agreeable. I will continue to monitor his progress and he will follow up in one month or sooner if needed. Plan:1. Refill Oxycodone - printed script2. Follow-up in one month (TE sent) Discharge instructions reviewed verbally. Discussed the risks/benefits of prescribed medication. The patient is aware that medication may be discontinued at any time due to poor compliance with visits, and recommended treatment and/or if patient doesn't adhere to the signed pain contract. The patient was instructed to return to the office as scheduled and call with any questions, problems or concerns. 02/07/2024 Other chronic pain (ICD-10 - G89.29) Vinod returns to clinic today for a follow up evaluation regarding his chronic pain. I have reviewed the [facility] database and did not find any inconsistencies. We discussed his current symptoms and medications. I will refill his Oxycodone as it continues to provide relief without side effects. This treatment plan was reviewed with Vinod, and he was agreeable. I will continue to monitor his progress and he will follow up in one month or sooner if needed. Plan:1. Refill Oxycodone2. Follow up in 1 month Discharge instructions reviewed verbally. Discussed the risks/benefits of prescribed medication. The patient is aware that medication may be discontinued at any time due to poor compliance with visits, and recommended treatment and/or if patient doesn't adhere to the signed pain contract. The patient was instructed to return to the office as scheduled and call with any questions, problems or concerns. 02/07/2024 Low back pain, unspecified (ICD-10 - M54.50) 03/11/2024 Other chronic pain (ICD-10 - G89.29) Vinod returns to clinic today for a follow up evaluation regarding his chronic pain. I have reviewed the [facility] database and did not find any inconsistencies. We discussed his current symptoms and medications. I will refill his Oxycodone as it continues to provide relief without side effects. This treatment plan was reviewed with Vinod, and he was agreeable. I will continue to monitor his progress and he will follow up in one month or sooner if needed. Plan:1. Refill Oxycodone2. Follow up in 1 month Discharge instructions reviewed verbally. Discussed the risks/benefits of prescribed medication. The patient is aware that medication may be discontinued at any time due to poor compliance with visits, and recommended treatment and/or if patient doesn't adhere to the signed pain contract. The patient was instructed to return to the office as scheduled and call with any questions, problems or concerns. 04/08/2024 Other chronic pain (ICD-10 - G89.29) Vinod returns to clinic today for a follow up evaluation regarding his chronic pain. I have reviewed the [facility] database and did not find any inconsistencies. We discussed his current symptoms and medications. I will refill his Oxycodone as it continues to provide relief without side effects. This treatment plan was reviewed with Vinod, and he was agreeable. I will continue to monitor his progress and he will follow up in two months or sooner if needed. Plan:1. Refill Oxycodone - print script2. Follow-up in 2 months Discharge instructions reviewed verbally. Discussed the risks/benefits of prescribed medication. The patient is aware that medication may be discontinued at any time due to poor compliance with visits, and recommended treatment and/or if patient doesn't adhere to the signed pain contract. The patient was instructed to return to the office as scheduled and call with any questions, problems or concerns. 04/08/2024 Low back pain, unspecified (ICD-10 - M54.50) 05/02/2024 Other chronic pain (ICD-10 - G89.29) 03/11/2024 Low back pain, unspecified (ICD-10 - M54.50) 01/03/2024 Low back pain, unspecified (ICD-10 - M54.50) 09/06/2023 Opioid dependence, uncomplicated (ICD-10 - F11.20) 11/08/2023 Radiculopathy, lumbosacral region (ICD-10 - M54.17) 10/04/2023 Radiculopathy, lumbosacral region (ICD-10 - M54.17) 10/04/2023 Cervicalgia (ICD-10 - M54.2) 07/26/2023 Radiculopathy, lumbosacral region (ICD-10 - M54.17) 08/30/2023 Radiculopathy, lumbosacral region (ICD-10 - M54.17) 06/28/2023 Radiculopathy, lumbosacral region (ICD-10 - M54.17) 05/31/2023 Radiculopathy, lumbosacral region (ICD-10 - M54.17) 05/31/2023 Cervicalgia (ICD-10 - M54.2) 06/28/2023 Cervicalgia (ICD-10 - M54.2) 08/30/2023 Cervicalgia (ICD-10 - M54.2) 07/26/2023 Cervicalgia (ICD-10 - M54.2) 11/08/2023 Cervicalgia (ICD-10 - M54.2) 12/04/2023 Opioid dependence, uncomplicated (ICD-10 - F11.20) 10/04/2023 Other chronic pain (ICD-10 - G89.29) Rafa (Vinod) returns to clinic today for a follow up evaluation regarding his chronic pain. I have reviewed the [facility] database and did not find any inconsistencies. We discussed his current symptoms and medications. I will continue with a treatment plan consisting of medication management at this time. Regarding medications, I will refill his Oxycodone as it continues to provide moderate relief without side effects. His most recent UDS was reviewed and was consistent for prescribed medication. This treatment plan was reviewed with Vinod, and he was agreeable. I will continue to monitor his progress and he will follow up in one month or sooner if needed. Plan:1. Refill Oxycodone2. UDS reviewed and consistent3. Follow up in 1 month Discharge instructions reviewed verbally. Discussed the risks/benefits of prescribed medication. The patient is aware that medication may be discontinued at any time due to poor compliance with visits, and recommended treatment and/or if patient doesn't adhere to the signed pain contract. The patient was instructed to return to the office as scheduled and call with any questions, problems or concerns. 11/08/2023 Other chronic pain (ICD-10 - G89.29) Rafa returns to clinic today for a follow up evaluation regarding his acute on chronic pain. I have reviewed the [facility] database and did not find any inconsistencies. We discussed his current symptoms and medications. Regarding medications, I will refill his Oxycodone with 5 extra tabs for his current pain flare. I will plan to decrease back to regular dosage next month. This treatment plan was reviewed with Vinod, and he was agreeable. I will continue to monitor his progress and he will follow up in one month or sooner if needed. Plan:1. Refill Oxycodone with 5 extra tabs for pain flare, plan to go back down to #70 next month2. Follow up in 1 month Discharge instructions reviewed verbally. Discussed the risks/benefits of prescribed medication. The patient is aware that medication may be discontinued at any time due to poor compliance with visits, and recommended treatment and/or if patient doesn't adhere to the signed pain contract. The patient was instructed to return to the office as scheduled and call with any questions, problems or concerns. 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 Along with the screening questionnaires, 15 minutes of time was used to assess and educate the patient on the risks of misusing pain medication and the risks of taking narcotic pain medication in conjunction with other mood altering substances such as alcohol, benzodiazepines and other drugs (prescribed or not). 05/31/2023 Opioid dependence, uncomplicated (ICD-10 - F11.20) 05/31/2023 Other Vinay Hoover, am serving as a scribe to document services personally performed by Kash Valdez PA-C, based upon my observations and the provider's statements to me. All documentation has been reviewed by the aforementioned PAYeyo as well as Bakari Stringer MD, prior to being entered into the official medical record. Bakari Hoover MD attest that the above named individual is acting in scribe capacity, has observed Kash Valdez's performance of the services and has documented them in accordance with her direction. The documentation recorded by the scribe accurately reflects the service Kash Valdez PA-C personally performed and the decisions made by her. 06/28/2023 Other Mary Hoover, am serving as a scribe to document services personally performed by Kash Valdez PA-C, based upon my observations and the provider's statements to me. All documentation has been reviewed by the aforementioned FIONA as well as Bakari Stringer MD, prior to being entered into the official medical record. Bakari Hoover MD attest that the above named individual is acting in scribe capacity, has observed Kash Valdez's performance of the services and has documented them in accordance with her direction. The documentation recorded by the scribe accurately reflects the service Kash Valdez PA-C and Bakari Stringer MD personally performed and the decisions made by them. 07/26/2023 Other Kiko, Ann yee, am serving as a scribe to document services personally performed by Kash Valdez PA-C, based upon my observations and the provider's statements to me. All documentation has been reviewed by the aforementioned FIONA as well as Bakari Stringer MD, prior to being entered into the official medical record. IBakari MD attest that the above named individual is acting in scribe capacity, has observed Kash Valdez's performance of the services and has documented them in accordance with her direction. The documentation recorded by the scribe accurately reflects the service Kash Valdez PA-C, personally performed and the decisions made by her. 08/30/2023 Other Kiko, Ann yee, am serving as a scribe to document services personally performed by Kash Valdez PA-C, based upon my observations and the provider's statements to me. All documentation has been reviewed by the aforementioned FIONA as well as Bakari Stringer MD, prior to being entered into the official medical record. IBakari MD attest that the above named individual is acting in scribe capacity, has observed Kash Valdez's performance of the services and has documented them in accordance with her direction. The documentation recorded by the scribe accurately reflects the service Kash Valdez PA-C, personally performed and the decisions made by her. 10/04/2023 Other Tommy Hoover , am serving as a scribe to document services personally performed by Kash Valdez PA-C, based upon my observations and the provider's statements to me. All documentation has been reviewed by the aforementioned FIONA. I, Kash Valdez PA-C, attest that the above named individual is acting in scribe capacity, has observed my performance of the services and has documented them in accordance with my direction. The documentation recorded by the scribe accurately reflects the service I personally performed and the decisions made during the clinic visit. 11/08/2023 Other Tommy Hoover , am serving as a scribe to document services personally performed by Kash Valdez PA-C, based upon my observations and the provider's statements to me. All documentation has been reviewed by the aforementioned FIONA as well as Bakari Stringer MD, prior to being entered into the official medical record. Bakari Hoover MD attest that the above named individual is acting in scribe capacity, has observed Kash Valdez's performance of the services and has documented them in accordance with her direction. The documentation recorded by the scribe accurately reflects the service Kash Valdez PA-C, personally performed and the decisions made by her. 12/04/2023 Other I, Mary sainz, am serving as a scribe to document services personally performed by Michael Suárez CNP, based upon my observations and the provider's statements to me. All documentation has been reviewed by the aforementioned BROADBAND ENGINEER as well as Karlo Ortiz MD, prior to being entered into the official medical record. IKarlo MD attest that the above named individual is acting in scribe capacity, has observed Michael Suárez's performance of the services and has documented them in accordance with her direction. The documentation recorded by the scribe accurately reflects the service Michael Suárez CNP and Karlo Ortiz MD personally performed and the decisions made by them. 01/03/2024 Other I, Erlin Mariscal , am serving as a scribe to document services personally performed by Michael Suárez CNP, based upon my observations and the provider's statements to me. All documentation has been reviewed by the aforementioned BROADBAND ENGINEER as well as Bakari Stringer MD, prior to being entered into the official medical record. Bakari Hoover MD attest that the above named individual is acting in scribe capacity, has observed Michael Suárez's performance of the services and has documented them in accordance with her direction. The documentation recorded by the scribe accurately reflects the service Michael Suárez CNP and Bakari Stringer MD personally performed and the decisions made by them. 02/07/2024 Other I, Tommy Vides , am serving as a scribe to document services personally performed by Kash Valdez PA-C, based upon my observations and the provider's statements to me. All documentation has been reviewed by the aforementioned FIONA as well as Bakari Stringer MD, prior to being entered into the official medical record. I, Bakari Stringer MD attest that the above named individual is acting in scribe capacity, has observed Kash Valdez's performance of the services and has documented them in accordance with her direction. The documentation recorded by the scribe accurately reflects the service Kash Valdez PA-C, personally performed and the decisions made by her. 03/11/2024 Other I, Erlin Mariscal , am serving as a scribe to document services personally performed by Michael Suárez CNP, based upon my observations and the provider's statements to me. All documentation has been reviewed by the aforementioned BROADBAND ENGINEER as well as Karlo Ortiz MD, prior to being entered into the official medical record. IKarlo MD attest that the above named individual is acting in scribe capacity, has observed Michael Suárez's performance of the services and has documented them in accordance with her direction. The documentation recorded by the scribe accurately reflects the service Michael Suárez CNP and Karlo Ortiz MD personally performed and the decisions made by them. 04/08/2024 Other I, Ann yee, am serving as a scribe to document services personally performed by Michael Suárez CNP, based upon my observations and the provider's statements to me. All documentation has been reviewed by the aforementioned DENISE as well as Karlo Ortiz MD, prior to being entered into the official medical record. IKarlo MD attest that the above named individual is acting in scribe capacity, has observed Michael Suárez's performance of the services and has documented them in accordance with his direction. The documentation recorded by the scribe accurately reflects the service Michael Suárez NP, and Karlo Ortiz MD, personally performed and the decisions made by them. Plan Of Treatment No Information Insurance Providers Payer Name Payer Address Payer Phone Subscriber Number Group Number Insured Name Patient Relationship to Insured Coverage Start Date Coverage End Date [facility] [address] [address] [place] [address] [id number] Rafa Hickey Self - patient is the insured Medical (General) History Medical History History ICD Code Acid reflux Anxiety Arthritis Depression Diabetes Hypertension Hyperlipidemia BPH (Benign prostatic hypertrophy) PAD (Peripheral artery disease) ADD (Attention deficit disorder) CKD (Chronic kidney disease) stage 1 Surgical History Surgery Date(Month/Year) Left hamstring reattachment 11/07/2019 Right knee meniscus cartilage x2 2014, 2 018 Hospitalization History Reason Date(Month/Year) See surgical history
--- OUTSIDE RECORDS SUMMARY | 2024-05-19 05:39 | XMS_ITS ---
Author Organization [facility] Address [address] [place] [address] [address] [place] [address] Care Team Providers Care Mental Hygiene Consultant Name Role Phone Caryl Shi Primary Care Provider UnavailKarlo Wilkins Unavailable [phone] Catia Swift MD Unavailable Unavailable Michael Suárez Unavailable [phone] Allergies No Known Allergies REASON FOR VISIT Low back pain, knee pain Medications Medication SIG (Take, Route, Frequency, Duration) Notes Start Date End Date Status Tamsulosin HCl 0.4 MG Oral for 90 Days Active traZODone HCl 100 MG Oral for 90 Days Active Finasteride 5 MG TAKE ONE TABLET BY MOUTH ONCE DAILY Oral for 30 Days Active DULoxetine HCl 60 MG Oral for 30 Days Active tiZANidine HCl 4 MG 1 tablet as needed Orally once a day at bedtime for 30 days Active oxyCODONE HCl 5 MG 1 tablet as needed Orally every 8-12 hours (max #3/day, ok to fill 04/10/2024) for 30 days Low back pain, unspecified M54.50, G89.29 PRINTED Active Carvedilol 25 MG Oral for 90 Days Active amLODIPine Besylate 5 MG Oral for 90 Days Active Lantus SoloStar 100 UNIT/ML Subcutaneous for 17 Days Active UltiCare Short Pen Fawnskin 31G X 8 MM DIRECTED for 30 Days Active Spironolactone 50 MG Oral for 30 Days Active Furosemide 20 MG Oral for 90 Days Active Meloxicam 7.5 MG 1 tablet Orally Once a day for 30 days Active Methocarbamol 750 MG 1 tablet Orally(muscle relaxant for daytime use, Do not take with Tizanidine- only take 1 tablet at a time) Twice a day for 30 days Active Social History Tobacco Use: Social History Observation Description Date Details (start date - stop date) Unknown Tobacco Use/Smoking: Question Answer Notes Are you a Uses tobacco in other forms Additional Findings: Tobacco User e-Cigarette Alcohol Screen Question Answer Notes Did you have a drink containing alcohol in the p ast year? No Points 0 Interpretation Negative Vital Signs Height 74 in 04/08/2024 Weight 337 lbs 04/08/2024 BMI 43.26 kg/m2 04/08/2024 Blood pressure systolic 132 mm Hg 04/08/20 24 Blood pressure diastolic 84 mm Hg 024 Encounters Encounter Location Date Provider Diagnosis [facility] [address] [facility] [address] [facility] [address] [place] [address] 04/08/2024 Michael Suárez Other chronic pain G89.29 and Low back pain, unspecified M54.50 Assessments Encounter Date Diagnosis (ICD Code) Assessment Notes Treatment Notes Treatment Clinical Notes 04/08/2024 Other chronic pain (ICD-10 - G89.29) Vinod returns to clinic today for a follow up evaluation regarding his chronic pain. I have reviewed the [facility] database and did not find any inconsistencies. [...] Low back pain, unspecified (ICD-10 - M54.50) 04/08/2024 Ann Latif, am serving as a scribe to document services personally performed by Michael Suárez CNP, based upon my observations and the provider's statements to me. All documentation has been reviewed by the aforementioned SOCIAL SERVICE ASSISTANT as well as Karlo Ortiz MD, prior to being entered into the official medical record. Karlo Hoover MD attest that the above named individual is acting in scribe capacity, has observed Michael Suárez's performance of the services and has documented them in accordance with his direction. The documentation recorded by the scribe accurately reflects the service Michael Suárez NP, and Karlo Ortiz MD, personally performed and the decisions made by them. Plan Of Treatment Medication Medication Name Sig Start Date Stop Date Notes tiZANidine HCl 4 MG 1 tablet as needed Orally once a day at bedtime for 30 days oxyCODONE HCl 5 MG 1 tablet as needed Orally every 8-12 hours (max #3/day, ok to fill 04/10/2024) for 30 days Low back pain, unspecified M54.50, G89.29 PRINTED Meloxicam 7.5 MG 1 tablet Orally Once a day for 30 days Methocarbamol 750 MG 1 tablet Orally(muscle relaxant for daytime use, Do not take with Tizanidine- only take 1 tablet at a time) Twice a day for 30 days Treatment Notes Assessment Notes Other chronic pain Vinod returns to clinic today for a follow up evaluation regarding his chronic pain. I have reviewed the [facility] database and did not find any inconsistencies. [...] call with any questions, problems or concerns. Other Kiko, Ann Kuhn, am serving as a scribe to document services personally performed by Michael Suárez CNP, based upon my observations and the provider's statements to me. All documentation has been reviewed by the aforementioned SOCIAL SERVICE ASSISTANT as well as Karlo Ortiz MD, prior to being entered into the official medical record. Karlo Hoover MD attest that the above named individual is acting in scribe capacity, has observed Michael Suárez's performance of the services and has documented them in accordance with his direction. The documentation recorded by the scribe accurately reflects the service Michael Suárez NP, and Karlo Ortiz MD, personally performed and the decisions made by them. Next Appt Details Follow Up: 2 Months, Reason: Progress Notes * Rafa RIVAS JrDOB: (63 yo M)Acc No.[id number]:04/08/2024 Progress Notes Patient:?Rafa Rivas Jr Provider:?Michael Suárez NP :1960???Age:63 Y???Sex:Male Adiel e:04/08/2024 Phone: [facility] Pcp:Caryl Shi Subjective: * Chief Complaints: * ???Low back painKnee pain * HPI: ???Clinic visit:? Rafa (Vinod) returns regarding his chronic low back, neck, and knee pain. ?Interval History: ?Vinod's symptoms remain largely unchanged and bothersome as he is just here for a refill of medications today. He reports that he felt as if he was tripping over a bowling ball and fell last week, and today his knee is bandaged. ?Procedure History : Several lumbar injections at [facility] have not been helpful. He also completed cervical injections at [place]. Genicular RFAs have been completed in the past without relief ?- 01/01/2024 Lumbar injection ([facility]) : good relief ?- 11/21/2022 L5-S1 FANTASMA : 60-70% relief ?- 12/07/2022 bilateral knee injections (no relief) ?- 04/13/2023 Right knee injection : 60% relief, spiked blood pressure ?Previous Consults : Srinath Curiel MD of [facility] for knee treatment. Dr. Hoff (Surgeon) discussed SCS vs. L5-S1 RFA ?Previous Therapy : He completed knee therapy in 2019 without benefit. He has also completed therapy at [facility]. ?Current Pain Medications : Oxycodone 5mg BID PRN, Gabapentin, Methocarbamol 750mg BID, Meloxicam 7.5mg QD, Tizanidine 4mg QHS, Meloxicam BID PRN, NyQuil ?Previous Pain Medications : Amitriptyline. ???PQRS MEASURE:?154,155 Fall Risk?Have you had two or more falls in the past year??Yes,?Have you had any falls with injury in the past year??Yes,?Plan of Care:?Documented.?Depression Screening:?PHQ-9?Little interest or pleasure in doing things?Several days,?Feeling down, depressed, or hopeless?More than half the days,?Trouble falling or staying asleep, or sleeping too much?More than half the days,?Feeling tired or having little energy?Several days,?Poor appetite or overeating?Not at all,?Feeling bad about yourself or that you are a failure, or have let yourself or your family down?More than half the days,?Trouble concentrating on things, such as reading the newspaper or watching television?Not at all,?Moving or speaking so slowly that other people could have noticed; or the opposite, being so fidgety or restless that you have been moving around a lot more than usual?Not at all,?Thoughts that you would be better off or of hurting yourself in some way Not at all,?Total Score?8,?Interpretation?Mild Depression.?Intervention?Depression Screening Findings?Negative,?Name of the standardized tool used for adult depression screening:?Patient Health Questionnaire (PHQ-9).? * ROS:?General/Constitutional:?Chills/Fevers?No.?Fatigue?No.?Weight gain?No.?Weight loss?No.?Endocrine:?Dizziness?Yes.?Excessive sweating?No.?Weakness?No.?Respiratory:?Chest pain?No.?Cough?No.?Shortness of breath at rest?No.?Gastrointestinal:?Abdominal pain?No.?Blood in stool?No.?Constipation?No.?Diarrhea?No.?Hematology:?Easy bruising?No.?Prolonged bleeding?No.?Swollen glands?No.?Musculoskeletal:?Painful joints?Yes.?Swollen joints?Yes.?Skin:?Skin lesion(s)?No.?Neurologic:?Balance difficulty?Yes.?Headache?No.?Tingling/Numbness?Yes.?Psychiatric:?Alcoholism?No.?Anxiety?Yes.?Substance abuse?No.? * Medical History:? * Surgical History:?Right knee meniscus cartilage x2 2014, 2018Left hamstring reattachment 11/07/2019 * Hospitalization/Major Diagno stic Procedure:?See surgical history * Family History:?Father: dece ased, Aortic surgery, diagnosed with Unspecified heart disease.?Mother: , Cancer.? * Social History:?Tobacco Use:?Tobacco Use/Smoking?Are you a?Uses tobacco in other forms,?Additional Findings: Tobacco User?e-Cigarette.?Work Status:?Place of Employment: [employer] 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 ???Drugs/Alcohol:?Alcohol Screen?Did you have a drink containing alcohol in the past year??No,?Points?0,?Interpretation?Negative.? * Medications:?TakingMeloxicam 7.5 MG Tablet 1 tablet Orally Once a dayoxyCODONE HCl 5 MG Tablet 1 tablet as needed Orally every 8-12 hours (max #3/day), Notes: Low back pain, unspecified M54.50, G89.29 PRINTEDUltiCare Short Pen Fawnskin 31G X 8 MM Miscellaneous DIRECTED Lantus SoloStar 100 UNIT/ML Solution Pen-injector Subcutaneous Carvedilol 25 MG Tablet Oral amLODIPine Besylate 5 MG Tablet Oral Tamsulosin HCl 0.4 MG Capsule Oral traZODone HCl 100 MG Tablet Oral Finasteride 5 MG Tablet TAKE ONE TABLET BY MOUTH ONCE DAILY Oral DULoxetine HCl 60 MG Capsule Delayed Release Particles Oral Spironolactone 50 MG Tablet Oral Furosemide 20 MG Tablet Oral Taking Meloxicam 7.5 MG Tablet 1 tablet Orally Once a dayTaking oxyCODONE HCl 5 MG Tablet 1 tablet as needed Orally every 8-12 hours (max #3/day), Notes: Low back pain, unspecified M54.50, G89.29 PRINTEDTaking UltiCare Short Pen Fawnskin 31G X 8 MM Miscellaneous DIRECTED Taking Lantus SoloStar 100 UNIT/ML Solution Pen- injector Subcutaneous Taking Carvedilol 25 MG Tablet Oral Taking amLODIPine Besylate 5 MG Tablet Oral Taking Tamsulosin HCl 0.4 MG Capsule Oral Taking traZODone HCl 100 MG Tablet Oral Taking Finasteride 5 MG Tablet TAKE ONE TABLET BY MOUTH ONCE DAILY Oral Taking DULoxetine HCl 60 MG Capsule Delayed Release Particles Oral Taking Spironolactone 50 MG Tablet Oral Taking Furosemide 20 MG Tablet Oral Not-Taking/PRNMethocarbamol 750 MG Tablet 1 tablet Orally(muscle relaxant for daytime use, Do not take with Tizanidine- only take 1 tablet at a time) Twice a daytiZANidine HCl 4 MG Tablet 1 tablet as needed Orally once a day at bedtimeMedication List reviewed and reconciled with the patientNot-Taking/PRN Methocarbamol 750 MG Tablet 1 tablet Orally(muscle relaxant for daytime use, Do not take with Tizanidine- only take 1 tablet at a time) Twice a dayNot-Taking/PRN tiZANidine HCl 4 MG Tablet 1 tablet as needed Orally once a day at bedtimeMedication List reviewed and reconciled with the patient * Allergies:?N.K.D.A.no[Allerg ies Verified] Objective: * Vitals:?Ht: 74 in, Wt:337 lb s, BMI:43.26, BP:132/84 mm Hg, VAS-Today:8 1-10, VAS-Av 1-10, VAS-High: 10 1-10. * Examination: ???Musculoskeletal: ?Constitutional:?morbid obese body habitus,?in no acute distress.?Musculoskeletal:?Uses cane for ambulation.?Skin:?RLE bandaged throughout.?Neurological?normal coordination upper extremities, normal coordination lower extremities, alert and oriented x3, normal mood and affect.? Assessment: * Assessment: 1.?Other chronic pain - G89. 29?2.?Low back pain, unspecified - M54.50 (Primary)? Plan: * Treatment: 2.?Others? Notes: IAnn, am serving as a scribe to document services personally performed by Michael Suárez CNP, based upon my observations and the provider's statements to me. All documentation has been reviewed by the aforementioned DENISE as well as Karlo Ortiz MD, prior to being entered into the official medical record. I, Karlo Ortiz MD attest that the above named individual is acting in scribe capacity, has observed Michael Suárez's performance of the services and has documented them in accordance with his direction. The documentation recorded by the scribe accurately reflects the service Michael Suárez NP, and Karlo Ortiz MD, personally performed and the decisions made by them.?? * Procedure Codes:? * Preventive Medicine:? ??iSpine Inventory Forms:?Low Back Oswestry?Oswestry Score (0-100)?60,?OSCAR Interpretation?60-79 (Crippled).? * Follow Up:?2 Months * Billing Information: * Visit Code:? 23352 Established Patient level 3. * Procedure Codes:? * Sign off status: Completed true * Provider:?Michael Suárez NP Date:?04/08 Generated for Andi fields/Mona/Jessica on:?05/19/2024 05:38 AM CDT History and Physical Notes * HPI (History of Present Illness) Category Sub-Category Detail Notes Depression Screening PHQ-9 Little inte rest or pleasure in doing things: Several days Feeling down, depressed, or hopeless: Mo re than half the days Trouble falling or staying a sleep, or sleeping too much: More than half the days Feeling tired or having little energy: S everal days Poor appetite or overeating: Not at all Feeling bad about yourself o r that you are a failure, or have let yourself or your family down: More than half the days Trouble concentrating on thi ngs, such as reading the newspaper or watching television: Not at all Moving or speaking so slowly that other people could have noticed; or the opposite, being so fidgety or restless that you have been moving around a lot more than usual: Not at all Thoughts that you would be b calixto off or of hurting yourself in some way: Not at all Total Score: 8 Interpretation: Mild Depression Intervention Depression Screening Findings: N egative Name of the standardized too l used for adult depression screening:: Patient Health Questionnaire (PHQ-9) PQRS MEASURE 154,155 Fall Risk Have you had t wo or more falls in the past year?: Yes Have you had any falls with injury in th e past year?: Yes Plan of Care:: Documented Examination Category Sub-Category Detail Notes Musculoskeletal Constitutional: morbid obese bod y habitus, in no acute distress Musculoskeletal: Uses cane for ambula tion Skin: RLE bandaged through out Neurological normal coordination upper extremities, normal coordination lower extremities, alert and oriented x3, normal mood and affect
== END 2024-05-19 06:51 | disposition home or self-care (01) ==
PROVIDERS: Emergency Provider Emergency Medicine; PCP Family Medicine
DX: K56.41 Fecal impaction (principal)
CPT/HCPCS: 51702; 96374; 96376; 99284; J2270

== ENCOUNTER 2024-06-27 13:42 | Outpatient (CLI) | payer OTHER, SELFPAY ==
--- OUTSIDE RECORDS SUMMARY | 2024-06-27 13:44 | XMS_ITS | Referral Summary ---
Author Organization [facility] Address [address] [place] [address] Care Team Providers Care Beef Pluck Trimmer Name Role Phone Shar Hoff MD Unavailable [phone] Doctor, No Primary Care Provider Unavailabl e [...] - 145 mMol/L 07/19/2016 5:16 AM T [facility] Potassium 4.0 3.5 - 5.1 mMol/L 07/19/2016 5:[address] [facility] Chloride 104 98 - 112 mMol/L 07/19/2016 5:[address] [facility] Carbon Dioxide 25 21 - 32 mMol/L 07/19/2016 5:[address] [facility] BUN (Urea Nitro) 17 7 - 24 mg/dL 07/19/2016 5:[address] [facility] Creatinine 0.83 0.70 - 1.30 mg/dL 07/19/2016 5:[address] [facility] Est GFR (CKD-EPI) >60 >60 mL/min 07/19/2016 5:[address] [facility] EST GFR IF AM >60 >60 mL/min 07/19/2016 5:[address] [facility] Glucose 99 74 - 106 mg/dL 07/19/2016 5:[address] [facility] Calcium, Serum 8.4(L) 8.5 - 10.1 mg/dL 07/19/2016 5:[address] [facility] Anion Gap 11.0 0.0 - 15.0 mMol/L 07/19/2016 5:[address] [facility] Blood 07/19/2016 4:45 AM CDT 07/19/2016 4:48 AM CDT Brigette Pena MD CHEMISTRY ORDERABLE [facility] [address] [address] from Last 3 Months or Most Recently Relevant to Health Maintenance Advance Directives For more information, please contact: [phone] * Full Code (Latest Code Status on File) Date Activated Date Inactivated Comments 07/19/2016 6:14 AM 07/19/2016 4:02 PM Question Answer Comments How was code status determined? Patient Care Teams Beef Pluck Trimmer Relationship Specialty Start Date End Date Doctor, No No ad PCP - General Radiology 01/01/23 Shar Hoff MD [address] [place] [address] [address] [place] [address] Neurology 01/01/23
--- OUTSIDE RECORDS SUMMARY | 2024-06-27 13:44 | XMS_ITS | Clinical Summary ---
Author Organization [place] Address [address] [place] [address] Care Team Providers Care Drafter Structural Name Role Phone No Ref-Primary, Physician Primary Care Provider [facility] Unavailable Allergies Active Allergy Reactions Criticality Noted [...] tabletIndications:M ajor depressive disorder, recurrent episode, mild (H) TAKE TWO TABLETS BY MOUTH AT BEDTIME [...] Total Score(s): No flowsheet data found. Last [facility] website verification: 09/19/19 [email or web address] CKD (chronic kidney disease) stage 1, GFR [...] Comments Circulatory Father AAA Heart Disease Father [place] with sudden d eath, complicated AAA repair [...] Sex Assigned at Male 09/17/2018 5:00 PM SECURITY INCIDENT RESPONSE ENGINEER Gender Identity Male 09/17/2018 5:00 PM SECURITY INCIDENT RESPONSE ENGINEER Sexual Orientation Straight 09/17/2018 5: 00 PM SECURITY INCIDENT RESPONSE ENGINEER Last Filed Vital Signs Vital Sign Reading Time Taken Comments Blood Pressure 138/88 11/17/2021 2:13 PM SECURITY INCIDENT RESPONSE ENGINEER Pulse 99 11/17/2021 2:13 PM SECURITY INCIDENT RESPONSE ENGINEER Temperature 37.1 ??C (98.7 ??F) 11/17/2021 2:13 PM CS T Respiratory Rate 18 11/17/2021 2:13 PM SECURITY INCIDENT RESPONSE ENGINEER Oxygen Saturation 98% 11/17/2021 2:13 PM SECURITY INCIDENT RESPONSE ENGINEER Inhaled Oxygen Concentration - - Weight 154.7 kg (341 lb) 11/17/2021 2:13 PM SECURITY INCIDENT RESPONSE ENGINEER Height 188 cm (6' 2) 11/17/2021 2:13 PM SECURITY INCIDENT RESPONSE ENGINEER Body Mass Index 43.78 11/17/2021 2:13 PM SECURITY INCIDENT RESPONSE ENGINEER Plan of Treatment Health Maintenance Due Date Last Done Comments ANNUAL REVIEW OF HM ORDERS 1960 CT COLONOGRAPHY 1960 FLEX SIG 1960 sDNA (Cologuard) 1960 Pneumococcal Vaccine: 65+ Years (1 of 2 - PCV) 1964 FIT 06/25/2014 06/25/2013, 04/14/2011 RSV VACCINE (1 - Risk 60-74 years 1-dose series) 2018 LIPID 04/13/2022 04/13/2021, 09/25, 05/24/2020, [...] FOOT EXAM 11/27/2022 11/27/2021, 0 11/10/2020, 07/23/2019 FALL RISK ASSESSMENT 2023 03/11/2018, 01/21/2018, 09/18/2017 MEDICARE ANNUAL WELLNESS VISIT 06/28/2023 06/28/2022, 05/25/2020, 03/21/2019, Additional history exists EYE EXAM 07/12/2023 07/12/2022, 04/25, 04/09/2020, Additional history exists COVID-19 Vaccine ( season) 2024 INFLUENZA VACCINE (#1) 2024 9 (Declined), 08/04/2003 [...] DRUG SCREEN CLINIC Routine 11/10/2021 10:09 AM SECURITY INCIDENT RESPONSE ENGINEER Chronic, continuous use of opioids ALBUMIN RANDOM URINE QUANTITATIVE Routine 11/10/2021 10:09 AM SECURITY INCIDENT RESPONSE ENGINEER Type 2 diabetes mellitus with stage 1 chronic kidney disease, without long-term current use of insulin (H) Benign essential hypertension BASIC METABOLIC PANEL Routine 11/10/2021 10:01 AM SECURITY INCIDENT RESPONSE ENGINEER Type 2 diabetes mellitus with stage 1 chronic kidney disease, without long-term current use of insulin (H) Benign essential hypertension HEMOGLOBIN A1C Routine 11/10/2021 10:01 AM SECURITY INCIDENT RESPONSE ENGINEER Type 2 diabetes mellitus with stage 1 chronic kidney disease, without long-term current use of insulin (H) EYE EXAM - HIM SCAN 05/20/2021 1 2:00 AM CDT LIPID REFLEX TO DIRECT LDL PANEL Routine 04/13/2021 4:09 PM CDT Hyperlipidemia LDL goal <100 COLONOSCOPY Routine 08/13/2019 10:22 AM SECURITY INCIDENT RESPONSE ENGINEER CT CHEST/ABDOMEN/PELVIS W CONTRAST STAT 02/18/2018 12:20 PM CDT HEPATITIS C SCREEN REFLEX TO HCV RNA QUANT AND GENOTYPE Routine 08/10/2017 11:22 AM SECURITY INCIDENT RESPONSE ENGINEER Encounter for routine adult health examination without abnormal findings FECAL COLORECTAL CANCER SCREEN FIT Routine 06/25/2013 11:31 AM CDT Screen for colon cancer UA MACROSCOPIC WITH REFLEX TO MICRO Routine 10/13/2010 4:49 PM SECURITY INCIDENT RESPONSE ENGINEER HTN (hypertension) from Last 3 Months or Most Recently Relevant to Health Maintenance Results * (ABNORMAL) Drug Abuse Screen Panel 13, Urine (Pain Care Package) - lab collect (11/10/2021 10:09 [facility] Cannabinoids (32-smy-5-carboxy -9-THC) Not Detected Not Detected, Indeterminate 11/10/2021 10:28 AM SECURITY INCIDENT RESPONSE ENGINEER [facility] Comment:Cutoff for a negativ e cannabinoid is 50 ng/mL or less. Phencyclidine Not Detected Not Detected, Indeterminate 11/10/2021 10:28 AM SECURITY INCIDENT RESPONSE ENGINEER [facility] Comment:Cutoff for a negativ e PCP is 25 ng/mL or less. Cocaine (Benzoylecgonine) Not Detected Not Detected, Indeterminate 11/10/2021 10:28 AM SECURITY INCIDENT RESPONSE ENGINEER [facility] Comment:Cutoff for a negativ e cocaine is 150 ng/ml or less. Methamphetamine (d-Methamphetamin e) Not Detected Not Detected, Indeterminate 11/10/2021 10:28 AM SECURITY INCIDENT RESPONSE ENGINEER [facility] Comment:Cutoff for a negativ e methamphetamine is 500 ng/ml or less. Opiates (Morphine) Not Detected Not Detected, Indeterminate 11/10/2021 10:28 AM SECURITY INCIDENT RESPONSE ENGINEER [facility] Comment:Cutoff for a negativ e opiate is 100 ng/ml or less. Amphetamine (d-Amphetamine) Not Detected Not Detected, Indeterminate 11/10/2021 10:28 AM SECURITY INCIDENT RESPONSE ENGINEER [facility] Comment:Cutoff for a negativ e amphetamine is 500 ng/mL or less. Benzodiazepines (Nordiazepam) Not Detected Not Detected, Indeterminate 11/10/2021 10:28 AM SECURITY INCIDENT RESPONSE ENGINEER [facility] Comment:Cutoff for a negativ e benzodiazepine is 150 ng/ml or less. Tricyclic Antidepressants (Desipramine) Not Detected Not Detected, Indeterminate 11/10/2021 10:28 AM SECURITY INCIDENT RESPONSE ENGINEER [facility] Comment:Cutoff for a negativ e tricyclic antidepressant is 300 ng/ml or less. Methadone Not Detected Not Detected, Indeterminate 11/10/2021 10:28 AM SECURITY INCIDENT RESPONSE ENGINEER [facility] Comment:Cutoff for a negativ e methadone is 200 ng/ml or less. Barbiturates (Butalbital) Not Detected Not Detected, Indeterminate 11/10/2021 10:28 AM SECURITY INCIDENT RESPONSE ENGINEER [facility] Comment:Cutoff for a negativ e barbituate is 200 ng/ml or less. Oxycodone Detected(A ) Not Detected, Indeterminate 11/10/2021 10:28 AM SECURITY INCIDENT RESPONSE ENGINEER [facility] Comment: Cutoff for a positive oxycodone is greater than 100 ng/ml. This is an unconfirmed screening result to be used for medical purposes only. Propoxyphene (Norpropoxyphene) Not Detected Not Detected, Indeterminate 11/10/2021 10:28 AM SECURITY INCIDENT RESPONSE ENGINEER [facility] Comment:Cutoff for a negativ e propoxyphene is 300 ng/ml or less. Buprenorphine Not Detected Not Detected, Indeterminate 11/10/2021 10:28 AM SECURITY INCIDENT RESPONSE ENGINEER [facility] Comment:Cutoff for a negativ e buprenorphine is 10 ng/ml or less. Urine MID-STREAM URINE SPECIMEN / Unknown Non-blood Collection / Unknown 11/10/2021 10:09 AM SECURITY INCIDENT RESPONSE ENGINEER 11/10/2021 10:09 AM SECURITY INCIDENT RESPONSE ENGINEER Maya Goyal MD LAB - URINE ORDERABL ES [facility] [address], [address] [place] [address], [facility] [phone] * (ABNORMAL) Albumin Random Urine Quantitative with Creat Ratio (11/10/2021 10:09 AM SECURITY INCIDENT RESPONSE ENGINEER) Creatinine Urine mg/dL 74 mg/dL 11/11/2021 11:04 AM SECURITY INCIDENT RESPONSE ENGINEER [facility] Albumin Urine mg/L 14 mg/L 11/11/2021 11:04 AM SECURITY INCIDENT RESPONSE ENGINEER [facility] Albumin Urine mg/g Cr 18.92(H) 0.00 - 17.00 mg/g Cr 11/11/2021 11:04 AM SECURITY INCIDENT RESPONSE ENGINEER [facility] Urine MID-STREAM URINE SPECIMEN / Unknown Non-blood Collection / Unknown 11/10/2021 10:09 AM SECURITY INCIDENT RESPONSE ENGINEER 11/10/2021 10:09 AM SECURITY INCIDENT RESPONSE ENGINEER Maya Goyal MD LAB - URINE ORDERABL ES Performing Organization Address City/[facility]/ZIP Co de Phone Number [facility] [address] Lab (no room number, 1st floor of clinic) [place] [address], [facility] [phone] * (ABNORMAL) Hemoglobin A1c (11/10/2021 10:01 AM SECURITY INCIDENT RESPONSE ENGINEER) Hemoglobin A1C 6.6(H) 0.0 - 5.6 % 11/10/2021 10:26 AM SECURITY INCIDENT RESPONSE ENGINEER [facility] Comment: Normal <5.7% Prediabetes 5.7-6.4% ?? Diabetes 6.5% or higher Note: Adopted from ADA consensus guidelines. Blood BLOOD SPECIMEN / Unknown Venipuncture / Unknown 11/10/2021 10:01 AM SECURITY INCIDENT RESPONSE ENGINEER 11/10/2021 10:02 AM SECURITY INCIDENT RESPONSE ENGINEER Maya Goyal MD LAB - BLOOD ORDERABL ES [facility] [address], [address] [place] [address], [facility] [phone] * (ABNORMAL) Basic metabolic panel (Ca, Cl, CO2, Creat, Gluc, K, Na, BUN) (11/10/2021 10:01 AM SECURITY INCIDENT RESPONSE ENGINEER) Sodium 131(L) 133 - 144 mmol/L 11/11/2021 8:39 AM SECURITY INCIDENT RESPONSE ENGINEER [facility] Potassium 4.8 3.4 - 5.3 mmol/L 11/11/2021 8:39 AM SECURITY INCIDENT RESPONSE ENGINEER [facility] Chloride 96 94 - 109 mmol/L 11/11/2021 8:39 AM SECURITY INCIDENT RESPONSE ENGINEER [facility] Carbon Dioxide (CO2) 22 20 - 32 mmol/L 11/11/2021 8:39 AM SECURITY INCIDENT RESPONSE ENGINEER [facility] Anion Gap 13 3 - 14 mmol/L 11/11/2021 8:39 AM SECURITY INCIDENT RESPONSE ENGINEER [facility] Urea Nitrogen 11 7 - 30 mg/dL 11/11/2021 8:39 AM SECURITY INCIDENT RESPONSE ENGINEER [facility] Creatinine 0.92 0.66 - 1.25 mg/dL 11/11/2021 8:39 AM SECURITY INCIDENT RESPONSE ENGINEER [facility] Calcium 8.9 8.5 - 10.1 mg/dL 11/11/2021 8:39 AM SECURITY INCIDENT RESPONSE ENGINEER [facility] Glucose 135(H) 70 - 99 mg/dL 11/11/2021 8:39 AM SECURITY INCIDENT RESPONSE ENGINEER [facility] GFR Estimate >90 >60 mL/min/1.7 3m2 11/11/2021 8:39 AM SECURITY INCIDENT RESPONSE ENGINEER [facility] Comment:Effective August 252020 eGFRcr in adults is calculated using the 2020 CKD-EPI creatinine equation which includes age and gender (Donis et al., NEJM, DOI: 10.1056/ILGKju0201313) Blood BLOOD SPECIMEN / Unknown Venipuncture / Unknown 11/10/2021 10:01 AM SECURITY INCIDENT RESPONSE ENGINEER 11/10/2021 10:02 AM SECURITY INCIDENT RESPONSE ENGINEER Maya Goyal MD LAB - BLOOD ORDERABL ES [facility] [address] [place] [address] Lab (no room number, 1st floor of clinic) [place] [address], [facility] [phone] * EYE EXAM - HIM SCAN (05/20/2021 12:00 AM CDT) RETINOPATHY NEGATIVE 05/20/2021 Narrative Kya Riley K - 05/20/2021 12:00 AM CDT DIABETIC EYE EXAM [facility] Provider Outside OTHER * (ABNORMAL) Lipid panel [...] Goyal MD LAB - BLOOD ORDERABL ES [facility] [address] Lab (no room number, 1st floor of clinic) [place] [address], [facility] [phone] * COLONOSCOPY (08/13/2019 10:22 AM SECURITY INCIDENT RESPONSE ENGINEER) COLONOSCOPY [facility] Patient Name: Rafa Hickey ?Procedure Date: [...] # [id number], [place] ?# 221, SN # [id number] was introduced through the anus ?and advanced [...] history of colonic polyps CPT copyright 2018 [employer]. All rights reserved. The codes documented in this report are preliminary and upon medical record coder review may be revised to meet current compliance requirements. Electronically signed by Karlo Luis MD __ Karlo Luis MD 08/13/2019 10:51:03 AM I was physically present for the entire viewing portion of the exam. Karlo Luis MD Number of Addenda: 0 Note Initiated On: 08/13/2019 10:22 AM MRN: ?[id number] Procedure Date: ? 08/13/2019 10:22:02 AM Scope Withdrawal Time: 0 hours 6 minutes 13 seconds Total Procedure Duration: 0 hours 18 minutes 55 seconds Estimated Blood Loss: ? Scope In: 10:25:38 AM Scope Out: 10:44:33 AM RADIOLOGY RESULTS 08/13/2019 10:2 2 AM SECURITY INCIDENT RESPONSE ENGINEER Maya Goyal MD PROCEDURES RADIOLOGY RESULTS * [...] RNA Quant and Genotype (08/10/2017 11:22 AM SECURITY INCIDENT RESPONSE ENGINEER) Hepatitis C Antibody Nonreactive NR^Nonre active 08/13/2017 10:46 AM SECURITY INCIDENT RESPONSE ENGINEER [facility] Comment: Assay performance characteristics have not been established for newborns, infants, and children Blood specimen (specimen) 08/10/2017 11:22 AM SECURITY INCIDENT RESPONSE ENGINEER 08/10/2017 11:23 AM SECURITY INCIDENT RESPONSE ENGINEER Maya Goyal MD LAB - BLOOD ORDERABL ES [address] * Fecal colorectal cancer screen (FIT) (06/25/2013 11:31 AM CDT) Pathologist [facility] Occult Blood Scn FIT Negative NEG [facility] Stool specimen (specimen) 06/25/2013 11:31 AM CDT 06/25/2013 11:32 AM CDT Maya Goyal MD LAB - STOOLS ORDERAB LES [facility] * (ABNORMAL) UA macroscopic with reflex to micro (10/13/2010 4:49 PM SECURITY INCIDENT RESPONSE ENGINEER) Pathologist [facility] Color Urine Yellow [facility] Appearance Urine Clear [facility] Glucose Urine Negative NEG mg/dL [facility] Bilirubin Urine Negative NEG [facility] Ketones Urine Negative NEG mg/dL [facility] Specific [place] Urine 1.015 1.003 - 1.035 [facility] Blood Urine Moderate(A) NEG [facility] pH Urine 5.5 5.0 - 7.0 pH [facility] Protein Albumin Urine Negative NEG mg/dL [facility] Urobilinogen Urine 0.2 0.2 - 1.0 EU/dL [facility] Nitrite Urine Negative NEG [facility] Leukocyte Esterase Urine Negative NEG [facility] Source Midstream Urine [facility] Urine specimen (specimen) 10/13/2010 4:49 PM SECURITY INCIDENT RESPONSE ENGINEER 10/13/2010 4:54 PM SECURITY INCIDENT RESPONSE ENGINEER Maya Goyal MD LAB - URINE ORDERABL ES [facility] from Last 3 Months or Most Recently Relevant to Health Maintenance Rafa Hickey Personal/Family Self 1960 [phone] (Home) [address] [address] [id number] [employer] Worker's Compensation Employer [id number] (Home) [address] [place] [address] [id number] [employer] Worker's Compensation Employer [id number] (Home) [address] [place] [address] [id number] [employer] Worker's Compensation Employer [id number] 5 (Home) [address] [place] [address] [id number] [employer] Worker's Compensation Employer [id number] 5 (Home) [address] [address] [id number] [employer] Worker's Compensation Employer 1960 NONE (Work) [address] [address] Rafa Hickey Medication Therapy Self 1960 [phone] (Home) [address] [place] [address] Advance Directives For more information, please contact: [phone] * Full Code (Latest Code Status on [...] 1:26 PM 09/12/2017 10:19 AM Care Teams Drafter Structural Relationship Specialty Start Date End Date No Ref-Primary, Physician PCP - General 11/15/22 [facility] - [address] [address] Assigned PCP 10/18/23
--- OUTSIDE RECORDS SUMMARY | 2024-06-27 13:44 | XMS_ITS | Clinical Summary ---
Author Organization [facility] Address [address] [place] [address] Care Team Providers Care Recruiting Manager Name Role Phone Shar Hoff MD Unavailable [phone] Doctor, No Primary Care Provider Unavailabl e [...] (1 of 2 - PCV) 1966 RSV Vaccines (1 - Risk 60-74 years 1-dose series) 2018 HgbA1C 07/14/2021 04/13/2021 Yearly Review of HCD 07/11/2022 07/11/2021, 03/29/2021, 02/02/2021 Medicare Wellness Visit 06/28/2023 06/28/2022 Creatinine 04/25/2024 04/25/2023, 08/0 10/2022, 04/22/2022, Additional history exists COVID-19 Vaccine ( - 2023-2 5 season) 2024 Influenza Vaccine (#1) 2024 08/04/2003 Adult Tetanus [...] - 145 mMol/L 07/19/2016 5:16 AM CDT [facility] Potassium 4.0 3.5 - 5.1 mMol/L 07/19/2016 5:16 AM CDT [facility] Chloride 104 98 - 112 mMol/L 07/19/2016 5:16 AM CDT [facility] Carbon Dioxide 25 21 - 32 mMol/L 07/19/2016 5:16 AM T [facility] BUN (Urea Nitro) 17 7 - 24 mg/dL 07/19/2016 5:16 AM CDT [facility] Creatinine 0.83 0.70 - 1.30 mg/dL 07/19/2016 5:16 AM CDT [facility] Est GFR (CKD-EPI) >60 >60 mL/min 07/19/2016 5:16 AM CDT [facility] EST GFR IF AM >60 >60 mL/min 07/19/2016 5:16 AM CDT [facility] Glucose 99 74 - 106 mg/dL 07/19/2016 5:16 AM CDT [facility] Calcium, Serum 8.4(L) 8.5 - 10.1 mg/dL 07/19/2016 5:16 AM CDT [facility] Anion Gap 11.0 0.0 - 15.0 mMol/L 07/19/2016 5:16 AM T [facility] Blood 07/19/2016 4:45 AM CDT 07/19/2016 4:48 AM CDT Brigette Pena MD CHEMISTRY ORDERABLE [facility] [address] [place] [address] from Last 3 Months or Most Recently Relevant to Health Maintenance Advance Directives For more information, please contact: [phone] * Full Code (Latest Code Status on File) Date Activated Date Inactivated Comments 07/19/2016 6:14 AM 07/19/2016 4:02 PM Question Answer Comments How was code status determined? Patient Care Teams Recruiting Manager Relationship Specialty Start Date End Date Doctor, No No ad PCP - General Radiology 01/01/23 Shar Hoff MD [address] [place] [address] [address] [place] [address] Neurology 01/01/23
--- OUTSIDE RECORDS SUMMARY | 2024-06-27 13:45 | XMS_ITS | Encounter Summary ---
Author Organization [facility] Address [address] [place] [address]. [place] [address] Care Team Providers Care Behavioral Health Tech Name Role Phone Maya Goyal MD Primary Care Provider [phone] Maya Goyal MD Unavailable Mehdi Sen MD Unavailable [phone] Erlin Delcid MD Unavailable Elicia Bedoya [facility] Unavailable [phone] Kae [address] [facility] Unavailable Mehdi Bass DPM Unavailable [phone] [facility] Unavailable Maya Goyal MD Unavailable No Ref-Primary, Physician Primary Care Provider Mehdi Bass DPM Unavailable [phone] [facility] Unavailable Encounter Details Date Type Department Care Team (Late st Contact Info) Description 11/01/2020 [facility] [place] [address] [place] [address] Erlin Delcid MD [address] [place], [place] [address] Social History Tobacco Use Types Packs/Day Years [...] Sex Assigned at Male 09/17/2018 5:00 PM FORMULA ROOM WORKER Gender Identity Male 09/17/2018 5:00 PM FORMULA ROOM WORKER Sexual Orientation Straight 09/17/2018 5: 00 PM FORMULA ROOM WORKER COVID-19 Exposure Response Date Recorded In the last month, have you been in contact with someone who was confirmed or suspected to have Coronavirus / COVID-19? No / Unsure 11/04/2020 1:14 PM FORMULA ROOM WORKER documented as of this encounter Plan of Treatment Not on file documented as of this encounter Visit Diagnoses Not on filedocumented in this encounter Additional Health Concerns Assessment Noted Time PHQ-9 Depression Total Score: 10 020 8:55 AM CDT documented as of this encounter Care Teams Behavioral Health Tech Relationship Specialty Start Date End Date Maya Goyal MD [address] [place] [id number] PCP - General 05/03/04 11/14/22 No Ref-Primary, Physician PCP - General 11/15/22 Maya Goayl MD [address] [place] [address] Assigned PCP 06/27/12 10/17/23 Mehdi Sen MD [address] [place] [address] Assigned Musculoskeletal Provider 07/16/20 12/18/20 Erlin Delcid MD [address] [place] [address] Assigned Surgical Provider 09/12/[address] [facility] [address] [facility] [address] [place] [address] Pharmacist Pharmacist 11/09/20 12/06/20 [address] [facility] [address] [place] [address] Pharmacist Pharmacist 11/30/20 12/06/20 Mehdi Bass DPM [address] [place] [address] [place] [address] Assigned Musculoskeletal Provider 08/14/21 10/27/22 [address]ae [address] [facility] [address] [place] [address] Assigned MTM Pharmacist 03/18/22 Maya Goyal MD [address] [facility] [address] [place] [address] Assigned Pain Medication Provider 10/02/22 03/23/23 Mehdi Bass DPM [address] [place] [address] [address] [place] [address] Assigned Surgical Provider 10/28/22 [facility] [address] [place] [address] Assigned PCP 10/18/23 documented as of this encounter
--- OUTSIDE RECORDS SUMMARY | 2024-06-27 13:45 | XMS_ITS | Encounter Summary ---
Author Organization [facility] Address [address] [place] [address]. [place] [address] Care Team Providers Care Customs Compliance Analyst Name Role Phone Maya Goyal MD Primary Care Provider Maya Goyal MD Unavailable Erlin Delcid MD Unavailable [phone] Mehdi Bass DPQuita Unavailable Kae Whipple [facility] Unavailable Maya Goyal MD Unavailable No Ref-Primary, Physician Primary Care Provider Mehdi Bass DPM Unavailable [facility] Unavailable Encounter Details Date Type Department Care [...] Sex Assigned at Male 09/17/2018 5:00 PM SLUBBER FRAME CHANGER Gender Identity Male 09/17/2018 5:00 PM SLUBBER FRAME CHANGER Sexual Orientation Straight 09/17/2018 5: 00 PM SLUBBER FRAME CHANGER COVID-19 Exposure Response Date Recorded In the [...] documented as of this encounter Care Teams Customs Compliance Analyst Relationship Specialty Start Date End Date Maya Goyal MD [address] [place] [address] PCP - General 05/03/04 11/14/22 No Ref-Primary, Physician PCP - General 11/15/22 Maya Goyal MD [address] [place] [address] Assigned PCP 06/27/12 10/17/23 Erlin Delcid MD [address] [address] Assigned Surgical Provider 09/12/20 Mehdi Bass DPM [address] [facility] [address] [place] [address] Assigned Musculoskeletal Provider 08/14/21 10/27/22 Kae Whipple [facility] [address] [place] [address] Assigned MTM Pharmacist 03/18/22 Maya Goyal MD [address] [place] [address] Assigned Pain Medication Provider 10/02/22 03/23/23 Mehdi Bass DPM [address] [facility] [address] [place], [place] [address] Assigned Surgical Provider 10/28/22 [facility] [address] [place], [place] [address] Assigned PCP 10/18/23 documented as of this encounter
--- OUTSIDE RECORDS SUMMARY | 2024-06-27 13:45 | XMS_ITS | Encounter Summary ---
Author Organization [facility] Address [address] [place] [address]. [place] [address] Care Team Providers Care Doctor Of Naprapathy Name Role Phone Maya Goyal MD Primary Care Provider [phone] Maya Goyal MD Unavailable Mehdi Sen MD Unavailable [phone] Erlin Delcid MD Unavailable [phone] Elicia Bedoya [facility] Unavailable [phone] Kae Whipple [facility] Unavailable Mehdi Bass DPM Unavailable [phone] Kae Whipple [facility] Unavailable Maya Goyal MD Unavailable No Ref-Primary, Physician Primary Care Provider Mehdi Bass DPM Unavailable [phone] [facility] Unavailable Encounter Details Date Type Department Care Team (Late st Contact Info) Description 11/01/2020 [facility] [address] [place] [address] Erlin Delcid MD [address] [facility] [address] [place], [place] [address] Social History Tobacco Use Types Packs/Day Years [...] Sex Assigned at Male 09/17/2018 5:00 PM RESEARCH LIBRARIAN Gender Identity Male 09/17/2018 5:00 PM RESEARCH LIBRARIAN Sexual Orientation Straight 09/17/2018 5: 00 PM RESEARCH LIBRARIAN COVID-19 Exposure Response Date Recorded In the last month, have you been in contact with someone who was confirmed or suspected to have Coronavirus / COVID-19? No / Unsure 11/04/2020 1:14 PM RESEARCH LIBRARIAN documented as of this encounter Plan of Treatment Not on file documented as of this encounter Visit Diagnoses Not on filedocumented in this encounter Additional Health Concerns Assessment Noted Time PHQ-9 Depression Total Score: 10 020 8:55 AM CDT documented as of this encounter Care Teams Doctor Of Naprapathy Relationship Specialty Start Date End Date Maya Goyal MD [address] [place] [address] PCP - General 05/03/04 11/14/22 No Ref-Primary, Physician PCP - General 11/15/22 Maya Goyal MD [address] [place] [address] Assigned PCP 06/27/12 10/17/23 Mehdi Sen MD [address]09 [place] [address] Assigned Musculoskeletal Provider 07/16/20 12/18/20 Erlin Delcid MD [address] [address] Assigned Surgical Provider 09/12/20 Elicia Bedoya [facility] [address] [facility] [address]12 [place] [address] Pharmacist Pharmacist 11/09/20 12/06/20 Kae Whipple [facility] 303 [place] [address] Pharmacist Pharmacist 11/30/20 12/06/20 Mehdi Bass DPM [address] [place] [address] [place] [address] Assigned Musculoskeletal Provider 08/14/21 10/27/22 Kae Whipple [facility] 303 [place] [address] Assigned MTM Pharmacist 03/18/22 Maya Goyal MD 303 [facility] 200 [place] [address] Assigned Pain Medication Provider 10/02/22 03/23/23 Mehdi Bass DPM [address] [place] [address] [address] [place] [address] Assigned Surgical Provider 10/28/22 [facility] 303 [place] [address] Assigned PCP 10/18/23 documented as of this encounter
--- OUTSIDE RECORDS SUMMARY | 2024-06-27 13:45 | XMS_ITS | Encounter Summary ---
Author Organization [facility] Address [address] [place] [address]. [place] [address] Care Team Providers Care Coiled Tubing Supervisor Name Role Phone Maya Goyal MD Primary Care Provider [phone] Maya Goyal MD Unavailable Erlin Delcid MD Unavailable [phone] Mehdi Bass DPM Unavailable Kae Whipple [facility] Unavailable Maya Goyal MD Unavailable No Ref-Primary, Physician Primary Care Provider Mehdi Bass DPM Unavailable [phone] [facility] Unavailable Reason for Visit * Reason Comments Medication Refill Encounter Details Date Type Department Care Team (Late st Contact Info) Description 06/25/2021 [facility] [address] [place] [address] Maya Goyal MD [address] [place] [address] Medication Refill Social History Tobacco [...] Assigned at Male 09/17/2018 5:00 PM SENIOR ORACLE DBA Gender Identity Male 09/17/2018 5:00 PM SENIOR ORACLE DBA Sexual Orientation Straight 09/17/2018 5: 00 PM SENIOR ORACLE DBA documented as of this encounter Miscellaneous Notes * Telephone Encounter - Celestino Latham RN - 06/27/2021 2:46 PM CDT Prescription approved per [facility] Refill Protocol. documented in this encounter Plan of Treatment Not on file documented as of this encounter Visit Diagnoses Diagnosis Moderate episode of recurrent major depressive disorder (H)- Primary documented in this encounter Additional Health Concerns Assessment Noted Time PHQ-9 Depression Total Score: 10 021 2:58 PM CDT documented as of this encounter Care Teams Coiled Tubing Supervisor Relationship Specialty Start Date End Date Maya Goyal MD [address] [place] [address] PCP - General 05/03/04 11/14/22 No Ref-Primary, Physician PCP - General 11/15/22 Maya Goyal MD [address] [place] [address] Assigned PCP 06/27/12 10/17/23 Erlin Delcid MD [address] [facility] 500 [place] [address] Assigned Surgical Provider 09/12/20 Mehdi Bass DPM [address] [facility] [address] [place] [address] Assigned Musculoskeletal Provider 08/14/21 10/27/22 Kae Whipple [facility] 303 [place] [address] Assigned MTM Pharmacist 03/18/22 Maya Goyal MD [address] [facility] 200 [place] [address] Assigned Pain Medication Provider 10/02/22 03/23/23 [place] [address] [facility] [address] [place] [address] Assigned Surgical Provider 10/28/22 [facility] 303 [place] [address] Assigned PCP 10/18/23 documented as of this encounter
--- OUTSIDE RECORDS SUMMARY | 2024-06-27 13:45 | XMS_ITS | Encounter Summary ---
Author Organization [facility] Address [address] [place] [address]. [place] [address] Care Team Providers Care Nip Wrapper Name Role Phone Maya Goyal MD Primary Care Provider [phone] Maya Goyal MD Unavailable Erlin Delcid MD Unavailable Mehdi Bass DPM Unavailable [phone] [facility] Unavailable Maya Goyal MD Unavailable No Ref-Primary, Physician Primary Care Provider Mehdi Bass DPM Unavailable [facility] Unavailable Reason for Visit * Reason Onset Date Comments Orders 09/04/2021 Encounter Details Date Type Department Care Team (Late st Contact Info) Description 09/04/2021 [facility] Medical Advice [facility] [address] [place] [address] Maya Goyal MD [address] [place] [address] Orders Social History Tobacco Use [...] Sex Assigned at Male 09/17/2018 5:00 PM SIGNAL ENGINEER Gender Identity Male 09/17/2018 5:00 PM SIGNAL ENGINEER Sexual Orientation Straight 09/17/2018 5: 00 PM SIGNAL ENGINEER COVID-19 Exposure Response Date Recorded In the last month, have you been in contact with someone who was confirmed or suspected to have Coronavirus / COVID-19? No / Unsure 08/17/2021 12:57 PM SIGNAL ENGINEER documented as of this encounter Miscellaneous Notes * Telephone Encounter - Rukhsana Bowden RN - 09/06/2021 10:08 AM SIGNAL ENGINEER Sent Kiko message. AL ENGINEER documented in this encounter Plan of Treatment Not on file documented as of this encounter Visit Diagnoses Not on filedocumented in this encounter Additional Health Concerns Assessment Noted Time PHQ-9 Depression Total Score: 10 021 2:58 PM CDT documented as of this encounter Care Teams Nip Wrapper Relationship Specialty Start Date End Date Maya Goyal MD [address] [place] [address] PCP - General 05/03/04 11/14/22 No Ref-Primary, Physician PCP - General 11/15/22 Maya Goyal MD [address] [place] [address] Assigned PCP 06/27/12 10/17/23 Erlin Delcid MD [address] [address] Assigned Surgical Provider 09/12/20 [place] [address] [facility] [address] [place] [address] Assigned Musculoskeletal Provider 08/14/21 10/27/22 Kae Whipple [facility] [address] [place], [place] [address] Assigned MTM Pharmacist 03/18/22 Maya Goyal MD 303 [facility] [address] [place], [place] [address] Assigned Pain Medication Provider 10/02/22 03/23/23 [place] [address] [facility] [address] [place] [address] Assigned Surgical Provider 10/28/22 [facility] 303 [place], [place] [address] Assigned PCP 10/18/23 documented as of this encounter
--- OUTSIDE RECORDS SUMMARY | 2024-06-27 13:45 | XMS_ITS | Encounter Summary ---
Author Organization [facility] Address [address] [place] [address] Care Team Providers Care Retail Office Associate Name Role Phone Maya Goyal MD Primary Care Provider [phone] Maya Goyal MD Unavailable Erlin Delcid MD Unavailable Mehdi Bass DPM Unavailable Kae Whipple [facility] Unavailable [phone] Maya Goyal MD Unavailable No Ref-Primary, Physician Primary Care Provider Mehdi Bass DPM Unavailable [facility] Unavailable Reason for Visit * Reason Onset Date Comments Patient Inquiry 09/02/2021 Encounter Details Date Type Department Care Team (Late st Contact Info) Description 09/02/2021 [facility] [address] [address] Mehdi Bass DPM [address] [facility] [address] [place], [place] [address] Patient Inquiry Social History Tobacco Use Types [...] Assigned at Male 09/17/2018 5:00 PM SALES AND MARKETING COORDINATOR Gender Identity Male 09/17/2018 5:00 PM SALES AND MARKETING COORDINATOR Sexual Orientation Straight 09/17/2018 5: 00 PM SALES AND MARKETING COORDINATOR COVID-19 Exposure Response Date Recorded In the last month, have you been in contact with someone who was confirmed or suspected to have Coronavirus / COVID-19? No / Unsure 08/17/2021 12:57 PM SALES AND MARKETING COORDINATOR documented as of this encounter Plan of Treatment Not on file documented as of this encounter Visit Diagnoses Not on filedocumented in this encounter Additional Health Concerns Assessment Noted Time PHQ-9 Depression Total Score: 10 021 2:58 PM CDT documented as of this encounter Care Teams Retail Office Associate Relationship Specialty Start Date End Date Maya Goyal MD [address] [employer] 200 [place] [address] PCP - General 05/03/04 11/14/22 No Ref-Primary, Physician PCP - General 11/15/22 Maya Goyal MD [address] [facility] 200 [place] [address] Assigned PCP 06/27/12 10/17/23 Erlin Delcid MD [address] [place] [address] Assigned Surgical Provider 09/12/20 Mehdi Bass DPM [address] [facility] [address] [place] [address] Assigned Musculoskeletal Provider 08/14/21 10/27/22 Kae Whipple [facility] [address] [place] [address] Assigned MTM Pharmacist 03/18/22 Maya Goyal MD [address] [facility] 200 [place] [address] Assigned Pain Medication Provider 10/02/22 03/23/23 Mehdi Bass DPM [address] [facility] [address] [place], [place] [address] Assigned Surgical Provider 10/28/22 [facility] 303 [place], [place] [address] Assigned PCP 10/18/23 documented as of this encounter
--- OUTSIDE RECORDS SUMMARY | 2024-06-27 13:45 | XMS_ITS | Encounter Summary ---
Author Organization [facility] Address [address] [place] [address]. [place] [address] Care Team Providers Care Cnc Mill Programmer Name Role Phone Maya Goyal MD Primary Care Provider Maya Goyal MD Unavailable Erlin Delcid MD Unavailable [phone] Mehdi Bass DPM Unavailable Kae Whipple [facility] Unavailable [phone] Maya Goyal MD Unavailable No Ref-Primary, Physician Primary Care Provider Mehdi Bass DPM Unavailable [phone] [facility] Unavailable Encounter Details Date Type Department Care Team (Late st Contact Info) Description 09/06/2021 [facility] Medical Advice [facility] [address] [place] [address] Eden Lei, MASTER DEPUTY [employer] SECURITY Social History Tobacco Use Types Packs/Day Years [...] Sex Assigned at Male 09/17/2018 5:00 PM EVALUATION SPECIALIST Gender Identity Male 09/17/2018 5:00 PM EVALUATION SPECIALIST Sexual Orientation Straight 09/17/2018 5: 00 PM EVALUATION SPECIALIST COVID-19 Exposure Response Date Recorded In the last month, have you been in contact with someone who was confirmed or suspected to have Coronavirus / COVID-19? No / Unsure 08/17/2021 12:57 PM EVALUATION SPECIALIST documented as of this encounter Plan of Treatment Not on file documented as of this encounter Visit Diagnoses Not on filedocumented in this encounter Additional Health Concerns Assessment Noted Time PHQ-9 Depression Total Score: 10 021 2:58 PM CDT documented as of this encounter Care Teams Cnc Mill Programmer Relationship Specialty Start Date End Date Maya Goyal MD [address] [place] [address] PCP - General 05/03/04 11/14/22 No Ref-Primary, Physician PCP - General 11/15/22 Maya Goyal MD [address] [place] [address] Assigned PCP 06/27/12 10/17/23 Erlin Delcid MD [address] [facility] 500 [place] [address] Assigned Surgical Provider 09/12/20 [place] [address] [facility] [address] [place], [place] [address] Assigned Musculoskeletal Provider 08/14/21 10/27/22 Kae Whipple [facility] [address] [place] [address] Assigned MTM Pharmacist 03/18/22 Maya Goyal MD [address] [facility] 200 [place] [address] Assigned Pain Medication Provider 10/02/22 03/23/23 Meh[place] DPM [address] [facility] [address] [place] [address] Assigned Surgical Provider 10/28/22 [facility] 303 [place] [address] Assigned PCP 10/18/23 documented as of this encounter
--- OUTSIDE RECORDS SUMMARY | 2024-06-27 13:45 | XMS_ITS | Encounter Summary ---
Author Organization [facility] Address [address] [place] [address]. [place] [address] Care Team Providers Care Cement Mason [employer] Stre[employer] Name Role Phone Maya Goyal MD Primary Care Provider Maya Goyal MD Unavailable Erlin Delcid MD Unavailable Mehdi Bass DPM Unavailable [phone] Kae Whipple [facility] Unavailable [phone] Maya Goyal MD Unavailable No Ref-Primary, Physician Primary Care Provider Mehdi Bass DPM Unavailable [phone] [facility] Unavailable Reason for Visit * Reason Comments Medication Refill Encounter Details Date Type Department Care Team (Late st Contact Info) Description 12/05/2021 [facility] [address] [place] [address] Maya Goyal MD [address] [place] [address] Medication Refill Social History Tobacco [...] Sex Assigned at Male 09/17/2018 5:00 PM OIL WELL LOGGING ENGINEER Gender Identity Male 09/17/2018 5:00 PM OIL WELL LOGGING ENGINEER Sexual Orientation Straight 09/17/2018 5: 00 PM OIL WELL LOGGING ENGINEER COVID-19 Exposure Response Date Recorded In the last month, have you been in contact with someone who was confirmed or suspected to have Coronavirus / COVID-19? No / Unsure 11/17/2021 2:07 PM OIL WELL LOGGING ENGINEER documented as of this encounter Miscellaneous Notes * Telephone Encounter - Celestino Latham RN - 12/06/2021 6:42 PM CDT Prescription approved per [facility] Refill Protocol. documented in this encounter Plan [...] documented as of this encounter Care Teams Cement Mason Highways [employer] Streets Relationship Specialty Start Date End Date Maya Goyal MD [address] [place] [address] PCP - General 05/03/04 11/14/22 No Ref-Primary, Physician PCP - General 11/15/22 Maya Goyal MD [address] [place] [address] Assigned PCP 06/27/12 10/17/23 Erlin Delcid MD [address] [place] [address] Assigned Surgical Provider 09/12/20 Mehdi Bass DPM [id number] [place] [address] [address] [place] [address] Assigned Musculoskeletal Provider 08/14/21 10/27/22 Kae Whipple [facility] [address] [place] [address] Assigned MTM Pharmacist 03/18/22 Maya Goyal MD [address] [place] [address] 200 [place] [address] Assigned Pain Medication Provider 10/02/22 03/23/23 [place] [address] [facility] [address] [place] [address] Assigned Surgical Provider 10/28/22 [facility] 303 [place] [address] Assigned PCP 10/18/23 documented as of this encounter
--- OUTSIDE RECORDS SUMMARY | 2024-06-27 13:45 | XMS_ITS | Referral Summary ---
Author Organization [place] Address [address] [place] [address] Care Team Providers Care Tape Deck Installer Name Role Phone No Ref-Primary, Physician Primary Care Provider [facility] Unavailable Allergies Active Allergy Reactions [...] Total Score(s): No flowsheet data found. Last [facility] website verification: 09/19/19 [email or web address] CKD (chronic kidney disease) stage 1, GFR [...] Assigned at Male 09/17/2018 5:00 PM HAND ROUNDER Gender Identity Male 09/17/2018 5:00 PM HAND ROUNDER Sexual Orientation Straight 09/17/2018 5: 00 PM HAND ROUNDER Last Filed Vital Signs Vital Sign Reading Time Taken Comments Blood Pressure 138/88 11/17/2021 2:13 PM HAND ROUNDER Pulse 99 11/17/2021 2:13 PM HAND ROUNDER Temperature 37.1 ??C (98.7 ??F) 11/17/2021 2:13 PM CS T Respiratory Rate 18 11/17/2021 2:13 PM HAND ROUNDER Oxygen Saturation 98% 11/17/2021 2:13 PM HAND ROUNDER Inhaled Oxygen Concentration - - Weight 154.7 kg (341 lb) 11/17/2021 2:13 PM HAND ROUNDER Height 188 cm (6' 2) 11/17/2021 2:13 PM HAND ROUNDER Body Mass Index 43.78 11/17/2021 2:13 PM HAND ROUNDER Plan of Treatment Not on file Procedures Procedure Name Priority Date/Time Associated Diagnosis Comments URINE DRUG SCREEN CLINIC Routine 11/10/2021 10:09 AM HAND ROUNDER Chronic, continuous use of opioids ALBUMIN RANDOM URINE QUANTITATIVE Routine 11/10/2021 10:09 AM HAND ROUNDER Type 2 diabetes mellitus with stage 1 chronic kidney disease, without long-term current use of insulin (H) Benign essential hypertension BASIC METABOLIC PANEL Routine 11/10/2021 10:01 AM HAND ROUNDER Type 2 diabetes mellitus with stage 1 chronic kidney disease, without long-term current use of insulin (H) Benign essential hypertension HEMOGLOBIN A1C Routine 11/10/2021 10:01 AM HAND ROUNDER Type 2 diabetes mellitus with stage 1 chronic kidney disease, without long-term current use of insulin (H) EYE EXAM - HIM SCAN 05/20/2021 1 2:00 AM CDT LIPID REFLEX TO DIRECT LDL PANEL Routine 04/13/2021 4:09 PM CDT Hyperlipidemia LDL goal <100 COLONOSCOPY Routine 08/13/2019 10:[address] CHEST/ABDOMEN/PELVIS W CONTRAST STAT 02/18/2018 12:20 PM CDT HEPATITIS C SCREEN REFLEX TO HCV RNA QUANT AND GENOTYPE Routine 08/10/2017 11:22 AM HAND ROUNDER Encounter for routine adult health examination without abnormal findings FECAL COLORECTAL CANCER SCREEN FIT Routine 06/25/2013 11:31 AM CDT Screen for colon cancer UA MACROSCOPIC WITH REFLEX TO MICRO Routine 10/13/2010 4:49 PM HAND ROUNDER HTN (hypertension) from Last 3 Months or Most Recently Relevant to Health Maintenance Results * (ABNORMAL) Drug Abuse Screen Panel 13, Urine (Pain Care Package) - lab collect (11/10/2021 10:09 AMCST) [facility] Cannabinoids (17-ieu-3-carboxy -9-THC) Not Detected Not Detected, Indeterminate 11/10/2021 10:28 AM HAND ROUNDER [facility] Comment:Cutoff for a negativ e cannabinoid is 50 ng/mL or less. Phencyclidine Not Detected Not Detected, Indeterminate 11/10/2021 10:28 AM HAND ROUNDER [facility] Comment:Cutoff for a negativ e PCP is 25 ng/mL or less. Cocaine (Benzoylecgonine) Not Detected Not Detected, Indeterminate 11/10/2021 10:28 AM HAND ROUNDER [facility] Comment:Cutoff for a negativ e cocaine is 150 ng/ml or less. Methamphetamine (d-Methamphetamin e) Not Detected Not Detected, Indeterminate 11/10/2021 10:28 AM HAND ROUNDER [facility] Comment:Cutoff for a negativ e methamphetamine is 500 ng/ml or less. Opiates (Morphine) Not Detected Not Detected, Indeterminate 11/10/2021 10:28 AM HAND ROUNDER [facility] Comment:Cutoff for a negativ e opiate is 100 ng/ml or less. Amphetamine (d-Amphetamine) Not Detected Not Detected, Indeterminate 11/10/2021 10:28 AM HAND ROUNDER [facility] Comment:Cutoff for a negativ e amphetamine is 500 ng/mL or less. Benzodiazepines (Nordiazepam) Not Detected Not Detected, Indeterminate 11/10/2021 10:28 AM HAND ROUNDER [facility] Comment:Cutoff for a negativ e benzodiazepine is 150 ng/ml or less. Tricyclic Antidepressants (Desipramine) Not Detected Not Detected, Indeterminate 11/10/2021 10:28 AM HAND ROUNDER [facility] Comment:Cutoff for a negativ e tricyclic antidepressant is 300 ng/ml or less. Methadone Not Detected Not Detected, Indeterminate 11/10/2021 10:28 AM HAND ROUNDER [facility] Comment:Cutoff for a negativ e methadone is 200 ng/ml or less. Barbiturates (Butalbital) Not Detected Not Detected, Indeterminate 11/10/2021 10:28 AM HAND ROUNDER [facility] Comment:Cutoff for a negativ e barbituate is 200 ng/ml or less. Oxycodone Detected(A ) Not Detected, Indeterminate 11/10/2021 10:28 AM HAND ROUNDER [facility] Comment: Cutoff for a positive oxycodone is greater than 100 ng/ml. This is an unconfirmed screening result to be used for medical purposes only. Propoxyphene (Norpropoxyphene) Not Detected Not Detected, Indeterminate 11/10/2021 10:28 AM HAND ROUNDER [facility] Comment:Cutoff for a negativ e propoxyphene is 300 ng/ml or less. Buprenorphine Not Detected Not Detected, Indeterminate 11/10/2021 10:28 AM HAND ROUNDER [facility] Comment:Cutoff for a negativ e buprenorphine is 10 ng/ml or less. Urine MID-STREAM URINE SPECIMEN / Unknown Non-blood Collection / Unknown 11/10/2021 10:09 AM HAND ROUNDER 11/10/2021 10:09 AM HAND ROUNDER Maya Goyal MD LAB - URINE ORDERABL ES Performing Organization Address City/[facility]/ZIP Co de Phone Number [facility] [address], [address] [place] [address], [place] [phone] * (ABNORMAL) Albumin Random Urine Quantitative with Creat Ratio (11/10/2021 10:09 AM HAND ROUNDER) Creatinine Urine mg/dL 74 mg/dL 11/11/2021 11:04 AM HAND ROUNDER [facility] Albumin Urine mg/L 14 mg/L 11/11/2021 11:04 AM HAND ROUNDER [facility] Albumin Urine mg/g Cr 18.92(H) 0.00 - 17.00 mg/g Cr 11/11/2021 11:04 AM HAND ROUNDER [facility] Urine MID-STREAM URINE SPECIMEN / Unknown Non-blood Collection / Unknown 11/10/2021 10:09 AM HAND ROUNDER 11/10/2021 10:09 AM HAND ROUNDER Maya Goyal MD LAB - URINE ORDERABL ES [facility] [address] Lab (no room number, 1st floor of clinic) [place] [address], [place] [phone] * (ABNORMAL) Hemoglobin A1c (11/10/2021 10:01 AM HAND ROUNDER) Hemoglobin A1C 6.6(H) 0.0 - 5.6 % 11/10/2021 10:26 AM HAND ROUNDER [facility] Comment: Normal <5.7% Prediabetes 5.7-6.4% ?? Diabetes 6.5% or higher Note: Adopted from ADA consensus guidelines. Blood BLOOD SPECIMEN / Unknown Venipuncture / Unknown 11/10/2021 10:01 AM HAND ROUNDER 11/10/2021 10:02 AM HAND ROUNDER Maya Gyoal MD LAB - BLOOD ORDERABL ES [facility] [address], [address] [place] [address], [facility] [phone] * (ABNORMAL) Basic metabolic panel (Ca, Cl, CO2, Creat, Gluc, K, Na, BUN) (11/10/2021 10:01 AM HAND ROUNDER) Sodium 131(L) 133 - 144 mmol/L 11/11/2021 8:39 AM HAND ROUNDER [facility] Potassium 4.8 3.4 - 5.3 mmol/L 11/11/2021 8:39 AM HAND ROUNDER [facility] Chloride 96 94 - 109 mmol/L 11/11/2021 8:39 AM HAND ROUNDER [facility] Carbon Dioxide (CO2) 22 20 - 32 mmol/L 11/11/2021 8:39 AM HAND ROUNDER [facility] Anion Gap 13 3 - 14 mmol/L 11/11/2021 8:39 AM HAND ROUNDER [facility] Urea Nitrogen 11 7 - 30 mg/dL 11/11/2021 8:39 AM HAND ROUNDER [facility] Creatinine 0.92 0.66 - 1.25 mg/dL 11/11/2021 8:39 AM HAND ROUNDER [facility] Calcium 8.9 8.5 - 10.1 mg/dL 11/11/2021 8:39 AM HAND ROUNDER [facility] Glucose 135(H) 70 - 99 mg/dL 11/11/2021 8:39 AM HAND ROUNDER [facility] GFR Estimate >90 >60 mL/min/1.7 3m2 11/11/2021 8:39 AM HAND ROUNDER [facility] Comment:Effective August 252020 eGFRcr in adults is calculated using the 2020 CKD-EPI creatinine equation which includes age and gender (Donis et al., NEJ, DOI: 10.1056/GJXQqz1686399) Blood BLOOD SPECIMEN / Unknown Venipuncture / Unknown 11/10/2021 10:01 AM HAND ROUNDER 11/10/2021 10:02 AM HAND ROUNDER Maya Goyal MD LAB - BLOOD ORDERABL ES [facility] [address] Lab (no room number, 1st floor of clinic) [place] [address], [facility] [phone] * EYE EXAM - HIM SCAN (05/20/2021 12:00 AM CDT) RETINOPATHY NEGATIVE 05/20/2021 Narrative Kya Riley - 05/20/2021 12:00 AM CDT DIABETIC EYE EXAM [facility] Provider Outside OTHER * (ABNORMAL) Lipid [...] LAB - BLOOD ORDERABL ES [facility] [address] Lab (no room number, 1st floor of clinic) [place] [address], [facility] [phone] * COLONOSCOPY (08/13/2019 10:22 AM HAND ROUNDER) [facility] COLONOSCOPY [facility] Patient Name: Rafa Hickey ?Procedure Date: 08/13/2019 [...] # [id number], [place] ?# 221, SN # [id number] was introduced through the anus ?and advanced [...] history of colonic polyps CPT copyright 2018 [employer]. All rights reserved. The codes documented in this report are preliminary and upon transformation coach review may be revised to meet current compliance requirements. Electronically signed by Karlo Luis MD __ Karlo Luis MD 08/13/2019 10:51:03 AM I was physically present for the entire viewing portion of the exam. Karlo Luis MD Number of Addenda: 0 Note Initiated On: 08/13/2019 10:22 AM MRN: ?[id number] Procedure Date: ? 08/13/2019 10:22:02 AM Scope Withdrawal Time: 0 hours 6 minutes 13 seconds Total Procedure Duration: 0 hours 18 minutes 55 seconds Estimated Blood Loss: ? Scope In: 10:25:38 AM Scope Out: 10:44:33 AM RADIOLOGY RESULTS 08/13/2019 10:2 2 AM HAND ROUNDER Maya Goyal MD PROCEDURES RADIOLOGY RESULTS * [...] RNA Quant and Genotype (08/10/2017 11:22 AM HAND ROUNDER) Hepatitis C Antibody Nonreactive NR^Nonre active 08/13/2017 10:46 AM HAND ROUNDER [facility] Comment: Assay performance characteristics have not been established for newborns, infants, and children Blood specimen (specimen) 08/10/2017 11:22 AM HAND ROUNDER 08/10/2017 11:23 AM HAND ROUNDER Maya Goyal MD LAB - BLOOD ORDERABL ES [facility] [place] [address] [address] * Fecal colorectal cancer screen (FIT) (06/25/2013 11:31 AM CDT) Occult Blood Scn FIT Negative NEG [facility] Stool specimen (specimen) 06/25/2013 11:31 AM CDT 06/25/2013 11:32 AM CDT Maya Goyal MD LAB - STOOLS ORDERAB LES Performing Organization Address City/[facility]/ZIP Co de Phone Number [facility] * (ABNORMAL) UA macroscopic with reflex to micro (10/13/2010 4:49 PM HAND ROUNDER) Color Urine Yellow [facility] Appearance Urine Clear [facility] Glucose Urine Negative NEG mg/dL [facility] Bilirubin Urine Negative NEG [facility] Ketones Urine Negative NEG mg/dL [facility] Specific [place] Urine 1.015 1.003 - 1.035 [facility] Blood Urine Moderate(A) NEG [facility] pH Urine 5.5 5.0 - 7.0 pH [facility] Protein Albumin Urine Negative NEG mg/dL [facility] Urobilinogen Urine 0.2 0.2 - 1.0 EU/dL [facility] Nitrite Urine Negative NEG [facility] Leukocyte Esterase Urine Negative NEG [facility] Source Midstream Urine [facility] Urine specimen (specimen) 10/13/2010 4:49 PM HAND ROUNDER 10/13/2010 4:54 PM HAND ROUNDER Maya Goyal MD LAB - URINE ORDERABL ES Performing Organization Address City/[facility]/ZIP Co de Phone Number [facility] from Last 3 Months or Most Recently Relevant to Health Maintenance Advance Directives For more information, please contact: [phone] * Full Code (Latest Code Status on [...] 1:26 PM 09/12/2017 10:19 AM Care Teams Tape Deck Installer Relationship Specialty Start Date End Date No Ref-Primary, Physician PCP - General 11/15/[address] [address] Assigned PCP 10/18/23
--- OUTSIDE RECORDS SUMMARY | 2024-06-27 13:45 | XMS_ITS | Encounter Summary ---
Author Organization [place] Address [address] [place] [address] Care Team Providers Care Mold Injector Name Role Phone Maya Goyal MD Primary Care Provider [phone] Maya Goyal MD Unavailable Mehdi Sen MD Unavailable [phone] Erlin Delcid MD Unavailable Elicia Bedoya [facility] Unavailable Kae Whipple [facility] Unavailable [phone] Mehdi Bass DPM Unavailable [phone] Kae Whipple [facility] Unavailable Maya Goyal MD Unavailable No Ref-Primary, Physician Primary Care Provider Mehdi Bass DPM Unavailable [phone] [facility] Unavailable Reason for Visit * Reason Comments Medication Refill Encounter Details Date Type Department Care Team (Late st Contact Info) Description 09/30/2020 [facility] [address] [place] [address] Maya Goyal MD [address] [place] [address] Medication Refill Social History Tobacco [...] Sex Assigned at Male 09/17/2018 5:00 PM MANAGER FURNITURE Gender Identity Male 09/17/2018 5:00 PM MANAGER FURNITURE Sexual Orientation Straight 09/17/2018 5: 00 PM MANAGER FURNITURE COVID-19 Exposure Response Date Recorded In the last month, have you been in contact with someone who was confirmed or suspected to have Coronavirus / COVID-19? Yes 09/07/2020 1:45 PM MANAGER FURNITURE documented as of this encounter Miscellaneous Notes * Telephone Encounter - Eva Garcia LPN - 10/05/2020 11:58 AM MANAGER FURNITURE Spoke with Patient he is aware and transferred to appiontment desk BMeron Garcia LPN GER FURNITURE * Telephone Encounter - Basilia Felipe MD - 10/01/2020 4:04 PM MANAGER FURNITURE Please have him schedule an apptsoon, as he is almost due for diabetic check and can recheck sodiumsame time GER FURNITURE * Telephone Encounter - India Tapia RN - 10/01/2020 9:58 AM CST Routing refill request to provider for review/approval because: Labs out of range: Sodium Date Value Ref Range Status 05/24/2020 127 (L) 133 - 144 mmol/L Final India Tapia RN, BSN GER FURNITURE documented in this encounter Plan of Treatment Not on file documented as of this encounter Visit Diagnoses Diagnosis Benign essential hypertension Essential hypertension, benign documented in this encounter Additional Health Concerns Assessment Noted Time PHQ-9 Depression Total Score: 10 020 8:55 AM CDT documented as of this encounter Care Teams Mold Injector Relationship Specialty Start Date End Date Maya Goyal MD [address] [facility] [address] [place] [address] PCP - General 05/03/04 11/14/22 No Ref-Primary, Physician PCP - General 11/15/22 Maya Goyal MD [address] [facility] [address] [place] [address] Assigned PCP 06/27/12 10/17/23 Mehdi Sen MD [address] [place], [place] [address] Assigned Musculoskeletal Provider 07/16/20 12/18/20 Erlin Delcid MD [address] [facility] [address] [address] Assigned Surgical Provider 09/12/20 Elicia Bedoya [facility] [address] [place] [address] [address]12 [place] [address] Pharmacist Pharmacist 11/09/20 12/06/20 Kae Whipple [facility] [address] [place], [place] [address] Pharmacist Pharmacist 11/30/20 12/06/20 Meh[place] D[place] [address] [facility] [address] [place] [address] Assigned Musculoskeletal Provider 08/14/21 10/27/22 Kae Whipple [facility] [address] [place] [address] Assigned MTM Pharmacist 03/18/22 Maya Goyal MD [address] [facility] [address] [place] [address] Assigned Pain Medication Provider 10/02/22 03/23/23 Mehdi Bass DPM [address] [facility] [address] [place], [place] [address] Assigned Surgical Provider 10/28/22 [facility] [address] [place] [address] Assigned PCP 10/18/23 documented as of this encounter
--- OUTSIDE RECORDS SUMMARY | 2024-06-27 13:45 | XMS_ITS | Encounter Summary ---
Author Organization [place] Address [address] [place] [address]. [place] [address] Care Team Providers Care Clinical Education Coordinator Name Role Phone Maya Goyal MD Primary Care Provider [phone] Maya Goyal MD Unavailable Erlin Delcid MD Unavailable [phone] Mehdi Bass DPM Unavailable [phone] Kae Whipple [facility] Unavailable [phone] Maya Goyal MD Unavailable No Ref-Primary, Physician Primary Care Provider Mehdi Bass DPM Unavailable [facility] Unavailable Reason for Visit * Reason Comments Medication Refill Encounter Details Date Type Department Care Team (Late st Contact Info) Description 07/11/2021 [facility] [address] [place] [address] Maya Goyal MD [address] [place] [address] Medication Refill Social History Tobacco [...] Sex Assigned at Male 09/17/2018 5:00 PM BIOMEDICAL MANAGER Gender Identity Male 09/17/2018 5:00 PM BIOMEDICAL MANAGER Sexual Orientation Straight 09/17/2018 5: 00 PM BIOMEDICAL MANAGER documented as of this encounter Miscellaneous Notes * Telephone Encounter - Rukhsana Yo RN - 07/13/2021 12:52 PM CDT Prescription approved per [facility] Refill Protocol. documented in this [...] documented as of this encounter Care Teams Clinical Education Coordinator Relationship Specialty Start Date End Date Maya Goyal MD [address] [place] [address] PCP - General 05/03/04 11/14/22 No Ref-Primary, Physician PCP - General 11/15/22 Maya Goyal MD [address] [place] [address] Assigned PCP 06/27/12 10/17/23 Erlin Delcid MD [address] [facility] [address] [address] Assigned Surgical Provider 09/12/20 Mehdi Bass [place] [address] [facility] [address] [place] [address] Assigned Musculoskeletal Provider 08/14/21 10/27/22 Kae Whipple RP [address] [place] [address] Assigned MTM Pharmacist 03/18/22 Maya Goyal MD [address] [facility] [address] [place] [address] Assigned Pain Medication Provider 10/02/22 03/23/23 [place] [address] [facility] [address] [place] [address] Assigned Surgical Provider 10/28/22 [facility] [address] [place] [address] Assigned PCP 10/18/23 documented as of this encounter
--- OUTSIDE RECORDS SUMMARY | 2024-06-27 13:45 | XMS_ITS | Encounter Summary ---
Author Organization [place] Address [address] [place] [address] Care Team Providers Care Manufacturing Intern Name Role Phone Maya Goyal MD Primary Care Provider [phone] Maya Goyal MD Unavailable Mehdi Sen MD Unavailable [phone] Erlin Delcid MD Unavailable [phone] Elicia Bedoya [facility] Unavailable [phone] Kae Whipple [facility] Unavailable Mehdi Bass DPM Unavailable [phone] Kae Whipple [facility] Unavailable [phone] Maya Goyal MD Unavailable No Ref-Primary, Physician Primary Care Provider Mehdi Bass DPM Unavailable [phone] [facility] Unavailable Reason for Visit * Reason Onset Date Comments MyChart Communication 09/29/2020 Encounter Details Date Type Department Care Team (Late st Contact Info) Description 09/29/2020 [facility] [address] [place] [address] Maya Goyal MD [address] [place] [address] MyChart Communication Social History Tobacco Use Types [...] Sex Assigned at Male 09/17/2018 5:00 PM CIGAR TOBACCO REHANDLER Gender Identity Male 09/17/2018 5:00 PM CIGAR TOBACCO REHANDLER Sexual Orientation Straight 09/17/2018 5: 00 PM CIGAR TOBACCO REHANDLER COVID-19 Exposure Response Date Recorded In the last month, have you been in contact with someone who was confirmed or suspected to have Coronavirus / COVID-19? Yes 09/07/2020 1:45 PM CIGAR TOBACCO REHANDLER documented as of this encounter Miscellaneous Notes * Telephone Encounter - Rukhsana Yo RN - 09/29/2020 12:06 PM CST My chart message sent by patient. My chart message sent to patient. R TOBACCO REHANDLER * Telephone Encounter - Rukhsana Yo RN - 09/29/2020 11:34 AM CST My chart message sent by patient. My chart message sent to patient. R TOBACCO REHANDLER documented in this encounter Plan of Treatment Not on file documented as of this encounter Visit Diagnoses Not on filedocumented in this encounter Additional Health Concerns Assessment Noted Time PHQ-9 Depression Total Score: 10 04/15/ 020 8:55 AM CDT documented as of this encounter Care Teams Manufacturing Intern Relationship Specialty Start Date End Date Maya Goyal MD [address] [place] [address] PCP - General 05/03/04 11/14/22 No Ref-Primary, Physician PCP - General 11/15/22 Maya Goyal MD [address] [facility] [address] [place] [address] Assigned PCP 06/27/12 10/17/23 Mehdi Sen MD [address] [place], [place] [address] Assigned Musculoskeletal Provider 07/16/20 12/18/20 Erlin Delcid MD [address] [address] Assigned Surgical Provider 09/12/20 Elicia Bedoya [facility] [address] [place] [address] [address] [place], [place] [address] Pharmacist Pharmacist 11/09/20 12/06/20 Kae Whipple [facility] [address] [place], [place] [address] Pharmacist Pharmacist 11/30/20 12/06/20 [place] [address] [facility] [address] [place], [place] [address] Assigned Musculoskeletal Provider 08/14/21 10/27/22 Kae Whipple [facility] [address] [place] [place], [place] [address] Assigned MTM Pharmacist 03/18/22 Maya Goyal MD [address] [facility] [address] [place], [place] [address] Assigned Pain Medication Provider 10/02/22 03/23/[address] [place] [address] [facility] [address] [place] [address] Assigned Surgical Provider 10/28/[address] [address] Assigned PCP 10/18/23 documented as of this encounter
--- OUTSIDE RECORDS SUMMARY | 2024-06-27 13:45 | XMS_ITS | Encounter Summary ---
Author Organization [place] Address [address] [place] [address] Care Team Providers Care Field Cane Scaler Name Role Phone Maya Goyal MD Primary Care Provider [phone] Maya Goyal MD Unavailable Mehdi Sen MD Unavailable [phone] Erlin Delcid MD Unavailable Elicia Bedoya [facility] Unavailable Kae Whipple [facility] Unavailable Mehdi Bass DPM Unavailable [phone] Kae Whipple [facility] Unavailable Maya Goyal MD Unavailable No Ref-Primary, Physician Primary Care Provider Mehdi Bass DPM Unavailable [phone] [facility] Unavailable Reason for Visit * Reason Comments Medication Refill Encounter Details Date Type Department Care Team (Late st Contact Info) Description 03/22/2020 [facility] [address] [place] [address] Maya Goyal MD [address] [place] [address] Medication Refill Social History Tobacco [...] Sex Assigned at Male 09/17/2018 5:00 PM IT RISK AND ASSURANCE MANAGER Gender Identity Male 09/17/2018 5:00 PM IT RISK AND ASSURANCE MANAGER Sexual Orientation Straight 09/17/2018 5: 00 PM IT RISK AND ASSURANCE MANAGER COVID-19 Exposure Response Date Recorded In the last month, have you been in contact with someone who was confirmed or suspected to have Coronavirus / COVID-19? No / Unsure 03/12/2020 11:08 AM CDT documented as of this encounter Miscellaneous Notes * Telephone Encounter - Leah Narvaez RPH - 03/23/2020 4:44 PM CDT Prescription approved per [facility] Refill Protocol. documented in this encounter Plan of Treatment Not on file documented as of this encounter Visit Diagnoses Diagnosis CKD (chronic kidney disease) stage 1, GFR 90 ml/min or greater Chronic kidney disease, Stage I Benign essential hypertension Essential hypertension, benign documented in this encounter Additional Health Concerns Infection Onset Date Last Indicated Resolved Time COVID-19 08/27/2020 08/27/2020 09/17/2020 11:4 0 PM IT RISK AND ASSURANCE MANAGER Assessment Noted Time PHQ-9 Depression Total Score: 9 11/19/19 20 7:03 AM IT RISK AND ASSURANCE MANAGER documented as of this encounter Care Teams Field Cane Scaler Relationship Specialty Start Date End Date Maya Goyal MD [address] [address] PCP - General 05/03/04 11/14/22 No Ref-Primary, Physician PCP - General 11/15/22 Maya Goyal MD [address] [place] [address] Assigned PCP 06/27/12 10/17/23 Mehdi Sen MD [address] [place] [address] Assigned Musculoskeletal Provider 07/16/20 12/18/20 Erlin Delcid MD [address] [address] Assigned Surgical Provider 09/12/20 Elicia Bedoya [facility] [address] [facility] [address] [place] [address] Pharmacist Pharmacist 11/09/20 12/06/20 Kae Whipple [facility] [address] [place] [address] Pharmacist Pharmacist 11/30/20 12/06/20 Mehdi Bass DPM [address] [facility] [address] [place] [address] Assigned Musculoskeletal Provider 08/14/21 10/27/22 Kae Whipple [facility] [address] [place] [address] Assigned MTM Pharmacist 03/18/22 Maya Goyal MD [address] [place] [address] Assigned Pain Medication Provider 10/02/22 03/23/23 Mehdi Bass DPM [address] [facility] [address] [place], [place] [address] Assigned Surgical Provider 10/28/[address] [id number] Assigned PCP 10/18/23 documented as of this encounter
--- OUTSIDE RECORDS SUMMARY | 2024-06-27 13:45 | XMS_ITS | Encounter Summary ---
Author Organization [place] Address [address] [place] [address]. [place] [address] Care Team Providers Care Transition Mgr Rn Name Role Phone Maya Goyal MD Primary Care Provider Maya Goyal MD Unavailable Erlin Delcid MD Unavailable Mehdi Bass DPM Unavailable Kae Whipple [facility] Unavailable Maya Goyal MD Unavailable No Ref-Primary, Physician Primary Care Provider Mehdi Bass DPM Unavailable [facility] Unavailable Reason for Visit * Reason Comments Medication Refill Encounter Details Date Type Department Care Team (Late st Contact Info) Description 09/25/2021 [facility] [address] [place] [address] Maya Goyal MD [address] [place] [address] Medication Refill Social History Tobacco [...] Sex Assigned at Male 09/17/2018 5:00 PM FARM OR RANCH ANIMAL CARETAKER Gender Identity Male 09/17/2018 5:00 PM FARM OR RANCH ANIMAL CARETAKER Sexual Orientation Straight 09/17/2018 5: 00 PM FARM OR RANCH ANIMAL CARETAKER documented as of this encounter Miscellaneous Notes * Telephone Encounter - Rukhsana Yo RN - 09/27/2021 3:57 PM CST Prescription approved per [facility] Refill Protocol. OR RANCH ANIMAL CARETAKER documented in this encounter Plan of Treatment Not on file documented as of this encounter Visit Diagnoses Diagnosis Type 2 diabetes mellitus with stage 1 chronic kidney disease, without long-term current use of insulin (H) documented in this encounter Additional Health Concerns Assessment Noted Time PHQ-9 Depression Total Score: 10 021 2:58 PM CDT documented as of this encounter Care Teams Transition Mgr Rn Relationship Specialty Start Date End Date Maya Goyal MD [address] [place] [address] PCP - General 05/03/04 11/14/22 No Ref-Primary, Physician PCP - General 11/15/22 Maya Goyal MD [address] [place] [address] Assigned PCP 06/27/12 10/17/23 Erlin Delcid MD [address] [address] Assigned Surgical Provider 09/12/20 Meh[place]PM [address] [facility] [address] [place] [address] Assigned Musculoskeletal Provider 08/14/21 10/27/22 Kae Whipple R[facility] 303 [place] [address] Assigned MTM Pharmacist 03/18/22 Maya Goyal MD 303 [facility] 200 [place] [address] Assigned Pain Medication Provider 10/02/22 03/23/23 Mehdi Bass DPM [address] [facility] [address] [place] [address] Assigned Surgical Provider 10/28/22 [facility] 303 [place] [address] Assigned PCP 10/18/23 documented as of this encounter
--- OUTSIDE RECORDS SUMMARY | 2024-06-27 13:45 | XMS_ITS | Encounter Summary ---
Author Organization [place] Address [address] [place] [address] Care Team Providers Care Bag Filler Machine Operator Name Role Phone Maya Goyal MD Primary Care Provider Maya Goyal MD Unavailable Erlin Delcid MD Unavailable Mehdi Bass DPM Unavailable [phone] Kae Whipple [facility] Unavailable [phone] Maya Goyal MD Unavailable No Ref-Primary, Physician Primary Care Provider Mehdi Bass DPM Unavailable [facility] Unavailable Encounter Details Date Type Department Care Team (Late st Contact Info) Description 01/12/2022 [facility] Medical Advice [facility] [address] [place] [address] Maya Goyal MD [address] [place] [address] Social History Tobacco Use Types [...] Sex Assigned at Male 09/17/2018 5:00 PM REMEDIATION BIOANALYTICS CONSULTANT Gender Identity Male 09/17/2018 5:00 PM REMEDIATION BIOANALYTICS CONSULTANT Sexual Orientation Straight 09/17/2018 5: 00 PM REMEDIATION BIOANALYTICS CONSULTANT documented as of this encounter Plan of Treatment Not on file documented as of this encounter Visit Diagnoses Not on filedocumented in this encounter Additional Health Concerns Assessment Noted Time PHQ-9 Depression Total Score: 10 021 2:58 PM CDT documented as of this encounter Care Teams Bag Filler Machine Operator Relationship Specialty Start Date End Date Maya Goyal MD [address] [place] [address] PCP - General 05/03/04 11/14/22 No Ref-Primary, Physician PCP - General 11/15/22 Maya Goyal MD [address] [place] [address] Assigned PCP 06/27/12 10/17/23 Erlin Delcid MD [address] [address] Assigned Surgical Provider 09/12/20 [place]PM [address] [facility] [address] [place] [address] Assigned Musculoskeletal Provider 08/14/21 10/27/22 Kae Whipple RPH [address] [place] [address] Assigned MTM Pharmacist 03/18/22 Maya Goyal MD [address] [facility] 200 [place] [address] Assigned Pain Medication Provider 10/02/22 03/23/23 Mehdi Bass DPM [address] [facility] [address] [place], [place] [address] Assigned Surgical Provider 10/28/[address] [facility] [address] [place], [place] [address] Assigned PCP 10/18/23 documented as of this encounter
--- OUTSIDE RECORDS SUMMARY | 2024-06-27 13:45 | XMS_ITS | Encounter Summary ---
Author Organization [place] Address [address] [place] [address]. [place] [address] Care Team Providers Care Loan Closer Name Role Phone Maya Goyal MD Unavailable No Ref-Primary, Physician Primary Care Provider [facility] [facility] Unavailable Reason for Visit * Reason Comments Medication Refill Encounter Details Date Type Department Care Team (Late st Contact Info) Description 10/03/2023 [facility] [address] [place] [address] Maya Goyal MD [address] [place] [address] Medication Refill Social History Tobacco [...] Sex Assigned at Male 09/17/2018 5:00 PM DIE SET UP WORKER Gender Identity Male 09/17/2018 5:00 PM DIE SET UP WORKER Sexual Orientation Straight 09/17/2018 5: 00 PM DIE SET UP WORKER documented as of this encounter Miscellaneous Notes * Telephone Encounter - Rukhsana Bowden RN - 10/03/2023 1:53 PM DIE SET UP WORKER Pt going to [facility] now. Please deny med, will put notes in Rx. Catia Swift MD [address] [place] [address] SET UP WORKER documented in this encounter Plan of Treatment Not on file documented as of this encounter Visit Diagnoses Diagnosis Type 2 diabetes mellitus with stage 1 chronic kidney disease, without long-term current use of insulin (H) documented in this encounter Additional Health Concerns Assessment Noted Time PHQ-9 Depression Total Score: 10 05/16/ 021 2:58 PM CDT documented as of this encounter Care Teams Loan Closer Relationship Specialty Start Date End Date No Ref-Primary, Physician PCP - General 11/15/22 Maya Goyal MD 303 [facility] 200 [place], [place] [address] Assigned PCP 06/27/12 10/17/23 [facility] [facility] 303 [place] [address] Assigned PCP 10/18/23 documented as of this encounter
--- OUTSIDE RECORDS SUMMARY | 2024-06-27 13:45 | XMS_ITS | Encounter Summary ---
Author Organization [place] Address [address] [place] [address]. [place] [address] Care Team Providers Care Toll Relief Operator Name Role Phone Maya Goyal MD Primary Care Provider Maya Goyal MD Unavailable Erlin Delcid MD Unavailable Mehdi Bass DPM Unavailable [phone] Kae Whipple [facility] Unavailable [phone] Maya Goyal MD Unavailable No Ref-Primary, Physician Primary Care Provider Mehdi Bass DPM Unavailable [facility] Unavailable Reason for Visit * Reason Onset Date Comments MyChart Communication 11/09/2021 Encounter Details Date Type Department Care Team (Late st Contact Info) Description 11/09/2021 [facility] Medical Advice [facility] [address] [place] [address] Maya Goyal MD [address] [place] [address] MyChart Communication Social History Tobacco [...] Sex Assigned at Male 09/17/2018 5:00 PM CONSULTANT TEACHER Gender Identity Male 09/17/2018 5:00 PM CONSULTANT TEACHER Sexual Orientation Straight 09/17/2018 5: 00 PM CONSULTANT TEACHER COVID-19 Exposure Response Date Recorded In the last month, have you been in contact with someone who was confirmed or suspected to have Coronavirus / COVID-19? No / Unsure 11/10/2021 9:52 AM CONSULTANT TEACHER documented as of this encounter Miscellaneous Notes * Telephone Encounter - Rukhsana Bowden RN - 11/09/2021 12:58 PM CONSULTANT TEACHER See [employer] message. Sent his refill request encounter to Dr Goyal. ULTANT TEACHER documented in this encounter Plan of Treatment Not on file documented as of this encounter Visit Diagnoses Not on filedocumented in this encounter Additional Health Concerns Assessment Noted Time PHQ-9 Depression Total Score: 10 021 2:58 PM CDT documented as of this encounter Care Teams Toll Relief Operator Relationship Specialty Start Date End Date Maya Goyal MD [address] [place] [address] PCP - General 05/03/04 11/14/22 No Ref-Primary, Physician PCP - General 11/15/22 Maya Goyal MD [address] [place] [address] Assigned PCP 06/27/12 10/17/23 Erlin Delcid MD [address] [address] Assigned Surgical Provider 09/12/20 Mehdi Bass DPM [id number] [place] [address] [address] [place] [address] Assigned Musculoskeletal Provider 08/14/21 10/27/22 Kae Whipple [facility] 303 [place] [address] Assigned MTM Pharmacist 03/18/22 Maya Goyal MD 303 [facility] 200 [place] [address] Assigned Pain Medication Provider 10/02/22 03/23/23 Mehdi Bass DPM [id number] [place] [address] [address] [place] [address] Assigned Surgical Provider 10/28/22 [facility] 303 [place] [address] Assigned PCP 10/18/23 documented as of this encounter
--- OUTSIDE RECORDS SUMMARY | 2024-06-27 13:45 | XMS_ITS | Encounter Summary ---
Author Organization [place] Address [address] [place] [address] Care Team Providers Care Crm Architect Name Role Phone Maya Goyal MD Primary Care Provider [phone] Maya Goyal MD Unavailable Mehdi Sen MD Unavailable [phone] Erlin Delcid MD Unavailable [phone] Elicia Bedoya [facility] Unavailable Kae Whipple [facility] Unavailable Mehdi Bass DPM Unavailable [phone] Kae Whipple [facility] Unavailable [phone] Maya Goyal MD Unavailable No Ref-Primary, Physician Primary Care Provider Mehdi Bass DPM Unavailable [phone] [facility] Unavailable Reason for Visit * Reason Comments Medication Refill Encounter Details Date Type Department Care Team (Late st Contact Info) Description 10/25/2020 [facility] [address] [place] [address] Maya Goyal MD [address] [place] [address] Medication Refill Social History Tobacco [...] Assigned at Male 09/17/2018 5:00 PM SENIOR BRANCH MANAGER Gender Identity Male 09/17/2018 5:00 PM SENIOR BRANCH MANAGER Sexual Orientation Straight 09/17/2018 5: 00 PM SENIOR BRANCH MANAGER COVID-19 Exposure Response Date Recorded In the last month, have you been in contact with someone who was confirmed or suspected to have Coronavirus / COVID-19? No / Unsure 10/21/2020 10:08 AM SENIOR BRANCH MANAGER documented as of this encounter Miscellaneous Notes * Telephone Encounter - Susan Kohler RN - 10/26/2020 11:53 AM SENIOR BRANCH MANAGER Patient has refills remaining with requesting pharmacy. Susan Cancino - Registered Nurse [facility] OR BRANCH MANAGER documented in this encounter Plan of Treatment Not on file documented as of this encounter Visit Diagnoses Diagnosis Type 2 diabetes mellitus with stage 1 chronic kidney disease, without long-term current use of insulin (H) documented in this encounter Additional Health Concerns Assessment Noted Time PHQ-9 Depression Total Score: 10 020 8:55 AM CDT documented as of this encounter Care Teams Crm Architect Relationship Specialty Start Date End Date Maya Goyal MD [address] [place] [address] PCP - General 05/03/04 11/14/22 No Ref-Primary, Physician PCP - General 11/15/22 Maya Goyal MD [address] [place] [address] Assigned PCP 06/27/12 10/17/23 Mehdi Sen MD [address] [place] [address] Assigned Musculoskeletal Provider 07/16/20 12/18/20 Erlin Delcid MD [address] [address] Assigned Surgical Provider 09/12/20 Elicia Bedoya [facility] [address] [place] [address] 812 [place] [address] Pharmacist Pharmacist 11/09/20 12/06/20 Kae Whipple [facility] [address] [place] [address] Pharmacist Pharmacist 11/30/20 12/06/20 Mehdi Bass DPM [address] [employer] [address] [place] [address] Assigned Musculoskeletal Provider 08/14/21 10/27/22 Kae Whipple [facility] [address] [place] [address] Assigned MTM Pharmacist 03/18/22 Maya Goyal MD [address] [facility] 200 [place] [address] Assigned Pain Medication Provider 10/02/22 03/23/23 Mehdi Bass DPM [address] [place] [address] Assigned Surgical Provider 10/28/[address] [address] Assigned PCP 10/18/23 documented as of this encounter
--- OUTSIDE RECORDS SUMMARY | 2024-06-27 13:45 | XMS_ITS | Encounter Summary ---
Author Organization [place] Address [address] [place] [address] Care Team Providers Care Scale Manager Name Role Phone Maya Goyal MD Primary Care Provider [phone] Maya Goyal MD Unavailable Mehdi Sen MD Unavailable [phone] Erlin Delcid MD Unavailable [phone] Elicia Bedoya [facility] Unavailable [phone] Kae Whipple [facility] Unavailable Mehdi Bass DPM Unavailable [phone] Kae Whipple [facility] Unavailable [phone] Maya Goyal MD Unavailable No Ref-Primary, Physician Primary Care Provider Mehdi Bass DPM Unavailable [phone] [facility] Unavailable Reason for Visit * Reason Onset Date Comments Appointment 08/24/2020 Referral to Urol jacy Encounter Details Date Type Department Care Team (Late st Contact Info) Description 08/24/2020 [facility] [address] [place] [address] Unknown Appointment (Referral to Urology) [...] Sex Assigned at Male 09/17/2018 5:00 PM CUSTOMER QUALITY ENGINEER Gender Identity Male 09/17/2018 5:00 PM CUSTOMER QUALITY ENGINEER Sexual Orientation Straight 09/17/2018 5: 00 PM CUSTOMER QUALITY ENGINEER COVID-19 Exposure Response Date Recorded In the last month, have you been in contact with someone who was confirmed or suspected to have Coronavirus / COVID-19? No / Unsure 08/27/2020 11:58 AM CUSTOMER QUALITY ENGINEER documented as of this encounter Miscellaneous Notes * Telephone Encounter - Smitha Harris - 08/24/2020 1:34 PM CST [facility] Phone Message May a detailed [...] Thanks! Action Taken: Message routed to: Other: [facility] [place] Travel Screening: Not Applicable OMER QUALITY ENGINEER documented in this encounter Plan of Treatment Not on file documented as of this encounter Visit Diagnoses Not on filedocumented in this encounter Additional Health Concerns Infection Onset Date Last Indicated Resolved Time COVID-19 08/27/2020 08/27/2020 09/17/2020 11:4 0 PM CUSTOMER QUALITY ENGINEER Assessment Noted Time PHQ-9 Depression Total Score: 10 020 8:55 AM CDT documented as of this encounter Care Teams Scale Manager Relationship Specialty Start Date End Date Maya Goyal MD [address] [facility] 200 [place] [address] PCP - General 05/03/04 11/14/22 No Ref-Primary, Physician PCP - General 11/15/22 Maya Goyal MD [address] [facility] [address] [place] [address] Assigned PCP 06/27/12 10/17/23 Mehdi Sen MD [address] [place] [address] Assigned Musculoskeletal Provider 07/16/20 12/18/20 Erlin Delcid MD [address] [facility] [address] [address] Assigned Surgical Provider 09/12/20 Elicia Bedoya [facility] [address] [place] [address] 812 [place] [address] Pharmacist Pharmacist 11/09/20 12/06/20 Kae Whipple [facility] [address] [place], [place] [address] Pharmacist Pharmacist 11/30/20 12/06/20 Mehdi Bass DPM [address] [facility] [address] [place], [place] [address] Assigned Musculoskeletal Provider 08/14/21 10/27/22 Kae Whipple [facility] [address] [place], [place] [address] Assigned MTM Pharmacist 03/18/22 Maya Goyal MD [address] [facility] [address] [place], [place] [address] Assigned Pain Medication Provider 10/02/22 03/23/23 Meh[place] [address] [facility] [address] [place], [place] [address] Assigned Surgical Provider 10/28/[address] [address] Assigned PCP 10/18/23 documented as of this encounter
--- OUTSIDE RECORDS SUMMARY | 2024-06-27 13:45 | XMS_ITS | Encounter Summary ---
Author Organization [place] Address [address] [place] [address]. [place] [address] Care Team Providers Care Sandstone Splitter Name Role Phone Maya Goyal MD Primary Care Provider Maya Goyal MD Unavailable Erlin Delcid MD Unavailable Mehdi Bass DPM Unavailable [phone] Kae Whipple [facility] Unavailable Maya Goyal MD Unavailable No Ref-Primary, Physician Primary Care Provider Mehdi Bass DPM Unavailable [phone] [facility] Unavailable Reason for Visit * Reason Comments Medication Refill Encounter Details Date Type Department Care Team (Late st Contact Info) Description 07/20/2021 [facility] [address] [place] [address] Maya Goyal MD [address] [place] [address] Medication Refill Social History Tobacco [...] Sex Assigned at Male 09/17/2018 5:00 PM CADDY PACKER Gender Identity Male 09/17/2018 5:00 PM CADDY PACKER Sexual Orientation Straight 09/17/2018 5: 00 PM CADDY PACKER documented as of this encounter Miscellaneous Notes * Telephone Encounter - Rukhsana Yo RN - 07/20/2021 3:55 PM CDT Prescription approved per [facility] Refill Protocol. * Telephone Encounter - Jenn [...] documented as of this encounter Care Teams Sandstone Splitter Relationship Specialty Start Date End Date Maya Goyal MD [address] [place] [address] PCP - General 05/03/04 11/14/22 No Ref-Primary, Physician PCP - General 11/15/22 Maya Goyal MD [address] [place] [address] Assigned PCP 06/27/12 10/17/23 Erlin Delcid MD [address] [address] Assigned Surgical Provider 09/12/20 Mehdi Bass DPM [address] [facility] [address] [place] [address] Assigned Musculoskeletal Provider 08/14/21 10/27/22 Kae Whipple [facility] [address] [place] [address] Assigned MTM Pharmacist 03/18/22 Maya Goyal MD [address] [facility] 200 [place] [address] Assigned Pain Medication Provider 10/02/22 03/23/23 Mehdi [place] DPM [address] [facility] [address] [place] [address] Assigned Surgical Provider 10/28/22 [facility] [address] [place], [place] [address] Assigned PCP 10/18/23 documented as of this encounter
--- OUTSIDE RECORDS SUMMARY | 2024-06-27 13:46 | XMS_ITS | Encounter Summary ---
Author Organization [place] Address [address] [place] [address]. [place] [address] Care Team Providers Care Consulting Services Project Manager Name Role Phone Maya Goyal MD Primary Care Provider [phone] None Primary Care Provider UnavailEva Brannon RN Unavailable [phone] Maya Goyal MD Unavailable Maya Goyal MD Unavailable Mehdi Sen MD Unavailable [phone] Erlin Delcid MD Unavailable [phone] Elicia Bedoya [facility] Unavailable [phone] Kae Whipple [facility] Unavailable [phone] Mehdi Bass DPM Unavailable [phone] Kae Whipple [facility] Unavailable [phone] Maya Goyal MD Unavailable No Ref-Primary, Physician Primary Care Provider Mehdi Bass DPM Unavailable [phone] [facility] Unavailable Encounter Details Date Type Department Care Team (Late st Contact Info) Description 02/16/2003 [place] [address] [place] [address] Maya Goyal MD [address] [facility] [address] [place] [address] ER ENC (Primary Dx) Social History Tobacco [...] Sex Assigned at Male 09/17/2018 5:00 PM LOGGER Gender Identity Male 09/17/2018 5:00 PM LOGGER Sexual Orientation Straight 09/17/2018 5: 00 PM LOGGER documented as of this encounter Progress Notes * 02/16/2003 11:59 PM CASSIE SYKES 00:00 Emergency Department Encounter-COUNTS INCLUDE 234 BEDS AT THE [facility] NEISHA HAWK () [Ente red: 00:00 Change Control Manager ([facility])] CHIEF COMPLAINT: Ankle pain. 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 A rolling tool box rolled into his right medial ankle resulting in pain. He p resents now for evaluation. PAST MEDICAL HISTORY: Hypertension and hypercholesterolemia. CURRENT MED ICATIONS: Lotrel, Zocor and gemfibrozil. ALLERGIES: No known allergies. SOCIAL HISTORY: The patieverton zavala works for [employer] as above. He is a one pack [...] Skin: Warm and dry and as above. [facility] DEPARTMENT COURSE AND TREATMENT: The patient [...] 1. Rest, ice and elevation. 2. Ibuprofen [id number] prn. 3. Work restricti ons as a [...] COVID-19 08/27/2020 08/27/2020 09/17/2020 11:4 0 PM LOGGER documented as of this encounter Care Teams Consulting Services Project Manager Relationship Specialty Start Date End Date Maya Goyal MD [address] [place] [address] PCP - General 05/03/04 11/14/22 None PCP - General 12/01/02 05/02/04 Maya Goyal MD [address] [place] [address] PCP - Assigned PCP 10/22/09 11/26/18 No Ref-Primary, Physician PCP - General 11/15/22 Eva Mckenna [facility] - CC 02/19/18 Maya Goyal MD [address] [place] [address] Assigned PCP 06/27/12 10/17/23 Mehdi Sen MD [address] [place] [address] Assigned Musculoskeletal Provider 07/16/20 12/18/20 Erlin Delcid MD [address] [address] Assigned Surgical Provider 09/12/20 Elicia Bedoya [facility] [address] [place] [address] 812 [place] [address] Pharmacist Pharmacist 11/09/20 12/06/20 Kae Whipple [facility] [address] [place] [address] Pharmacist Pharmacist 11/30/20 12/06/20 Mehdi Bass DPM [facility] [employer] [address] [address] Assigned Musculoskeletal Provider 08/14/21 10/27/22 Kae Whipple [facility] [address] [place] [address] Assigned MTM Pharmacist 03/18/22 Maya Goyal MD [address] [address] Assigned Pain Medication Provider 10/02/22 03/23/23 Mehdi Bass DPM [address] [facility] [address] [place] [address] Assigned Surgical Provider 10/28/[address] [address] Assigned PCP 10/18/23 documented as of this encounter
--- OUTSIDE RECORDS SUMMARY | 2024-06-27 13:46 | XMS_ITS | Encounter Summary ---
Author Organization [place] Address [address] [place] [address] Care Team Providers Care Blender/Braze Applicator Name Role Phone Maya Goyal MD Primary Care Provider [phone] Maya Goyal MD Unavailable Mehdi Sen MD Unavailable [phone] Erlin Delcid MD Unavailable [phone] Elicia Bedoya [facility] Unavailable Kae Whipple [facility] Unavailable Mehdi Bass DPM Unavailable [phone] Kae Whipple [facility] Unavailable Maya Goyal MD Unavailable No Ref-Primary, Physician Primary Care Provider Mehdi Bass DPM Unavailable [phone] [facility] Unavailable Encounter Details Date Type Department Care Team (Late st Contact Info) Description 03/14/2019 Documentation Only [facility] [address] [place] [address] Maya Goyal MD [address] [place] [address] Essential hypertension, benign (Primary Dx); [...] Sex Assigned at Male 09/17/2018 5:00 PM EMBEDDED HARDWARE ENGINEER Gender Identity Male 09/17/2018 5:00 PM EMBEDDED HARDWARE ENGINEER Sexual Orientation Straight 09/17/2018 5: 00 PM EMBEDDED HARDWARE ENGINEER documented as of this encounter Plan of Treatment Not on file documented as of this encounter Results * (ABNORMAL) Albumin Random Urine Quantitative with Creat Ratio (03/14/2019 9:17 AM CDT) Creatinine Urine 239 mg/dL 03/14/2019 8:18 PM CDT [facility] Albumin Urine mg/L 162 mg/L 03/14/2019 8:41 PM CDT [facility] Albumin Urine mg/g Cr 67.78(H) 0 - 17 mg/g Cr 03/14/2019 8:41 PM CDT [facility] Urine specimen (specimen) 03/14/2019 9:17 AM CDT 03/14/2019 9:18 AM CDT Maya Goyal MD LAB - URINE ORDERABL ES [facility] [address] [place] [address] * (ABNORMAL) Hemoglobin A1c (03/14/2019 9:16 AM CDT) Hemoglobin A1C 7.0(H) 0 - 5.6 % 03/14/2019 9:38 AM CDT [facility] Comment: Normal <5.7% Prediabetes 5.7-6.4% ??Diabetes 6.5% or higher - adopted from ADA consensus guidelines. Blood specimen (specimen) 03/14/2019 9:16 AM CDT 03/14/2019 9:17 AM CDT Maya Goyal MD LAB - BLOOD ORDERABL ES [facility] [address] [facility] [address] [place] [address] * (ABNORMAL) Lipid panel reflex to direct LDL Fasting (03/14/2019 9:16 AM CDT) Cholesterol 188 <200 mg/dL 03/14/2019 6:29 PM CDT [facility] Triglycerides 268(H) <150 mg/dL 03/14/2019 6:29 PM CDT [facility] Comment: Borderline high: ??150-199 mg/dl High: ? 200-499 mg/dl Very high: ? >499 mg/dl Fasting specimen HDL Cholesterol 32(L) >39 mg/dL 9 6:36 PM CDT [facility] LDL Cholesterol Calculated 102(H) <100 mg/dL 03/14/2019 6:36 PM CDT [facility] Comment: Above desirable: ??100-129 mg/dl Borderline High: ??130-159 mg/dL High: ? 160-189 mg/dL Very high: ? >189 mg/dl Non HDL Cholesterol 156(H) <130 mg/dL 03/14/2019 6:36 PM CDT [facility] Comment: Above Desirable: ??130-159 mg/dl Borderline high: ??160-189 mg/dl High: ? 190-219 mg/dl Very high: ? >219 mg/dl Blood specimen (specimen) 03/14/2019 9:16 AM CDT 03/14/2019 9:17 AM CDT Maya Goyal MD LAB - BLOOD ORDERABL ES [facility] [address] [place] [address] * (ABNORMAL) Basic metabolic panel (03/14/2019 9:16 AM CDT) Sodium 140 133 - 144 mmol/L 03/14/2019 6:09 PM CDT [facility] Potassium 4.5 3.4 - 5.3 mmol/L 03/14/2019 6:09 PM CDT [facility] Chloride 103 94 - 109 mmol/L 03/14/2019 6:09 PM CDT [facility] Carbon Dioxide 28 20 - 32 mmol/L 03/14/2019 6:29 PM CDT [facility] Anion Gap 9 3 - 14 mmol/L 03/14/2019 6:29 PM CDT [facility] Glucose 155(H) 70 - 99 mg/dL 03/14/2019 6:29 PM CDT [facility] Comment:Fasting specimen Urea Nitrogen 11 7 - 30 mg/dL 03/14/2019 6:29 PM T [facility] Creatinine 0.79 0.66 - 1.25 mg/dL 03/14/2019 6:29 PM CDT [facility] GFR Estimate >90 >60 mL/min/{1 .73_m2} 03/14/2019 6:29 PM CDT [facility] Comment: Non GFR Calc Starting 09/10/2018, serum creatinine based estimated GFR (eGFR) will be calculated using the Chronic Kidney Disease Epidemiology Collaboration (CKD-EPI) equation. GFR Estimate If Black >90 >60 mL/min/{1 .73_m2} 03/14/2019 6:29 PM CDT [facility] Comment: GFR Calc Starting 09/10/2018, serum creatinine based estimated GFR (eGFR) will be calculated using the Chronic Kidney Disease Epidemiology Collaboration (CKD-EPI) equation. Calcium 9.3 8.5 - 10.1 mg/dL 03/14/2019 6:29 PM CDT [facility] Blood specimen (specimen) 03/14/2019 9:16 AM CDT 03/14/2019 9:17 AM CDT Maya Goyal MD LAB - BLOOD ORDERABL ES [facility] [address] [place] [address] documented in this encounter Visit Diagnoses Diagnosis Essential hypertension, benign- Primary Hyperlipidemia LDL goal <130 Other and unspecified hyperlipidemia Proteinuria, unspecified type Abnormal blood sugar Other abnormal glucose documented in this encounter Additional Health Concerns Infection Onset Date Last Indicated Resolved Time COVID-19 08/27/2020 08/27/2020 09/17/2020 11:4 0 PM EMBEDDED HARDWARE ENGINEER Assessment Noted Time PHQ-9 Depression Total Score: 4 09/23/20 18 2:33 PM EMBEDDED HARDWARE ENGINEER documented as of this encounter Care Teams Blender/Braze Applicator Relationship Specialty Start Date End Date Maya Goyal MD [address] [place] [address] PCP - General 05/03/04 11/14/22 No Ref-Primary, Physician PCP - General 11/15/22 Maya Goyal MD [address] [place] [address] Assigned PCP 06/27/12 10/17/23 Mehdi Sen MD [address] [place] [address] Assigned Musculoskeletal Provider 07/16/20 12/18/20 Erlin Delcid MD [address] [address] Assigned Surgical Provider 09/12/20 Elicia Bedoya [facility] [address] [facility] [address] [place] [address] Pharmacist Pharmacist 11/09/20 12/06/20 Kae Whipple [facility] [address] [place] [address] Pharmacist Pharmacist 11/30/20 12/06/20 Mehdi Bass DPM [id number] [place] [address] [address] [place] [address] Assigned Musculoskeletal Provider 08/14/21 10/27/22 Kae Whipple [facility] [address] [place] [address] Assigned MTM Pharmacist 03/18/22 Maya Goyal MD [address] [facility] 200 [place] [address] Assigned Pain Medication Provider 10/02/22 03/23/23 [place] [address] [facility] [address] [place] [address] Assigned Surgical Provider 10/28/22 [facility] [address] [place] [address] Assigned PCP 10/18/23 documented as of this encounter
--- OUTSIDE RECORDS SUMMARY | 2024-06-27 13:46 | XMS_ITS | Encounter Summary ---
Author Organization [place] Address [address] [place] [address]. [place] [address] Care Team Providers Care Carder Blankets Name Role Phone Maya Goyal MD Primary Care Provider [phone] Maya Goyal MD Unavailable Mehdi Sen MD Unavailable [phone] Erlin Delcid MD Unavailable [phone] Elicia Bedoya [facility] Unavailable Kae Whipple [facility] Unavailable [phone] Mehdi Bass DPM Unavailable [phone] Kae Whipple [facility] Unavailable Maya Goyal MD Unavailable No Ref-Primary, Physician Primary Care Provider Mehdi Bass DPM Unavailable [phone] [facility] Unavailable Reason for Visit * Reason Onset Date Comments Procedure 03/18/2019 Lumbar Epidural injection Encounter Details Date Type Department Care Team (Late st Contact Info) Description 03/18/2019 [facility] [place] [address] [facility] [address] [place] [address] [facility] ([facility]umbar Epidural injection ) Social History [...] Sex Assigned at Male 09/17/2018 5:00 PM STONEMASON APPRENTICE Gender Identity Male 09/17/2018 5:00 PM STONEMASON APPRENTICE Sexual Orientation Straight 09/17/2018 5: 00 PM STONEMASON APPRENTICE documented as of this encounter Miscellaneous Notes * Telephone Encounter - Giovana Domínguez - 03/18/2019 3:41 PM CDT Pre-screening Questions for Radiology Injections: Injection to be done at which interventional clinic site? [facility] Instruct patient to arrive as directed prior to the scheduled appointment time: ?? [place]: 30 minutes before ?? [place]: 30 minutes before; if IV needed 1 [...] Jordyn for review ?? IF SCHEDULING IN [place] AND NEEDS A PA, IT IS OKAY TO SCHEDULE. [place] HANDLES THEIR OWN PA'S AFTER THE PATIENT IS SCHEDULED. PLEASE SCHEDULE AT LEAST 1 WEEK OUT SO A PA CAN BE OBTAINED. Any chance of ? NO If YES, do NOT schedule and route to jackspooler Is an drug and alcohol counselor needed? No Patient has a drive home? (mandatory) YES: Informed Is patient taking any blood thinners (plavix, coumadin, jantoven, warfarin, heparin, pradaxa or dabigatran )? No If hold needed, do NOT schedule, route to jackspooler Is patient taking any aspirin products (includes Excedrin and Fiorinal)? No ?? If more than 325mg/day do NOT schedule; route to jackspooler ?? For CERVICAL procedures, hold all aspirin [...] YES, do NOT schedule and route to jackspooler Are you able to get on and off an exam table with minimal or no assistance? Yes If NO, do NOT schedule and route to jackspooler Are you able to roll over and lay on your stomach with minimal or no assistance? Yes If NO, do NOT schedule and route to jackspooler Any allergies to contrast dye, iodine, shellfish, or numbing and steroid medications? No If YES, route to jackspooler AND add allergy information to appointment notes [...] years? Yes ?? Was MRI done at [facility]? Yes ?? If not, where was it done? N/A ?? If MRI was not done at [facility], [facility] or [facility] Imaging do NOT schedule and route to [...] the patient have any questions? TIM Domínguez [facility] documented in this encounter Plan of Treatment Not on file documented as of this encounter Visit Diagnoses Not on filedocumented in this encounter Additional Health Concerns Infection Onset Date Last Indicated Resolved Time COVID-19 08/27/2020 08/27/2020 09/17/2020 11:4 0 PM STONEMASON APPRENTICE Assessment Noted Time PHQ-9 Depression Total Score: 4 09/23/20 18 2:33 PM STONEMASON APPRENTICE documented as of this encounter Care Teams Carder Blankets Relationship Specialty Start Date End Date Maya Goyal MD [address] [place] [address] PCP - General 05/03/04 11/14/22 No Ref-Primary, Physician PCP - General 11/15/22 Maya Goyal MD [address] [place] [address] Assigned PCP 06/27/12 10/17/23 Mehdi Sen MD 9[address] [place] [address] Assigned Musculoskeletal Provider 07/16/20 12/18/20 Erlin Delcid MD [address] [address] Assigned Surgical Provider 09/12/20 Elicia Bedoya [facility] [address] [place] [address] 812 [place] [address] Pharmacist Pharmacist 11/09/20 12/06/20 Kae Whipple Concepcion [address] [place] [address] Pharmacist Pharmacist 11/30/20 12/06/20 Mehdi [place] [address] [facility] [address] [place], [place] [address] Assigned Musculoskeletal Provider 08/14/21 10/27/22 Kae Whipple [facility] [address] [place] [address] Assigned MTM Pharmacist 03/18/22 Maya Goyal MD [address] [facility] 200 [place] [address] Assigned Pain Medication Provider 10/02/22 03/23/23 Mehdi Bass DPM [address] [facility] [address] [place], [place] [address] Assigned Surgical Provider 10/28/22 [facility] [address] [place], [place] [address] Assigned PCP 10/18/23 documented as of this encounter
--- OUTSIDE RECORDS SUMMARY | 2024-06-27 13:46 | XMS_ITS | Encounter Summary ---
Author Organization [place] Address [address] [place] [address]. [place] [address] Care Team Providers Care Electrophysiology Technician Name Role Phone Maya Goyal MD Primary Care Provider [phone] Maya Goyal MD Unavailable Mehdi Sen MD Unavailable [phone] Erlin Delcid MD Unavailable [phone] Elicia Bedoya [facility] Unavailable [phone] Kae Whipple [facility] Unavailable Mehdi Bass DPM Unavailable [phone] Kae Whipple [facility] Unavailable [phone] Maya Goyal MD Unavailable No Ref-Primary, Physician Primary Care Provider Mehdi Bass DPM Unavailable [phone] [facility] Unavailable Reason for Visit * Reason Onset Date Comments Referral 05/02/2019 New Eval Encounter Details Date Type Department Care Team (Late st Contact Info) Description 05/02/2019 [facility] Pain Management [place] [id number] [facility] [address] [place], [place] [id number] [facility] (New [facility] ) Social History Tobacco [...] Sex Assigned at Male 09/17/2018 5:00 PM GYPSUM ROOFER Gender Identity Male 09/17/2018 5:00 PM GYPSUM ROOFER Sexual Orientation Straight 09/17/2018 5: 00 PM GYPSUM ROOFER documented as of this encounter Miscellaneous Notes * Telephone Encounter - Stephanie Rock - 05/02/2019 2:18 PM CDT Referral received from Marli Velasco NP at [facility] for new patient evaluation andmanagement. Diagnosis of Lumbar DDD. Patient previously seen by Jenn Gaspar on 12/19/18 -- can schedule a follow up. Stephanie Rock Anatomical Embalmer [facility] documented in this encounter Plan of Treatment Not on file documented as of this encounter Visit Diagnoses Not on filedocumented in this encounter Additional Health Concerns Infection Onset Date Last Indicated Resolved Time COVID-19 08/27/2020 08/27/2020 09/17/2020 11:4 0 PM GYPSUM ROOFER Assessment Noted Time PHQ-9 Depression Total Score: 4 09/23/20 18 2:33 PM GYPSUM ROOFER documented as of this encounter Care Teams Electrophysiology Technician Relationship Specialty Start Date End Date Maya Goyal MD [address] [place] [address] PCP - General 05/03/04 11/14/22 No Ref-Primary, Physician PCP - General 11/15/22 Maya Goyal MD [address] [place] [address] Assigned PCP 06/27/12 10/17/23 Mehdi Sen MD [address] [place] [address] Assigned Musculoskeletal Provider 07/16/20 12/18/20 Erlin Delcid MD [address] [facility] 500 [place] [address] Assigned Surgical Provider 09/12/20 Elicia Bedoya, [facility] [address] [facility] 8[address] [place] [address] Pharmacist Pharmacist 11/09/20 12/06/20 Kae Whipple [facility] [address] [place] [address] Pharmacist Pharmacist 11/30/20 12/06/20 Meh[place] [address] [place] [address] Assigned Musculoskeletal Provider 08/14/21 10/27/22 Kae Whipple [facility] [address] [place], [place] [address] Assigned MTM Pharmacist 03/18/22 Maya Goyal MD [address] [facility] 200 [place] [address] Assigned Pain Medication Provider 10/02/22 03/23/23 [place] [address] [address] [place] [address] Assigned Surgical Provider 10/28/22 [facility] [address] [address] Assigned PCP 10/18/23 documented as of this encounter
--- OUTSIDE RECORDS SUMMARY | 2024-06-27 13:46 | XMS_ITS ---
Author Organization [facility] Address [address] [place] [address] [address] [place] [address] Care Team Providers Care Supervisor [employer] Name Role Phone Caryl Shi Primary Care Provider UnavailKarlo Wilkins Unavailable [phone] Catia Swift MD Unavailable Unavailable Michael Suárez Unavailable [phone] REASON FOR VISIT 4 Week Follow-Up Medications Medication SIG (Take, Route, Frequency, Duration) Notes Start Date End Date Status Furosemide 20 MG Oral for 90 Days Active oxyCODONE HCl 5 MG 1 tablet as needed Orally every 8-12 hours (max #3/day, ok to fill 04/10/2024) for 30 days Low back pain, unspecified M54.50, G89.29 PRINTED Active Methocarbamol 750 MG 1 tablet Orally(muscle relaxant for daytime use, Do not take with Tizanidine- only take 1 tablet at a time) Twice a day for 30 days Active Meloxicam 7.5 MG 1 tablet Orally Once a day for 30 days Active tiZANidine HCl 4 MG 1 tablet as needed Orally once a day at bedtime for 30 days Active Spironolactone 50 MG Oral for 30 Days Active DULoxetine HCl 60 MG Oral for 30 Days Active Finasteride 5 MG TAKE ONE TABLET BY MOUTH ONCE DAILY Oral for 30 Days Active traZODone HCl 100 MG Oral for 90 Days Active Tamsulosin HCl 0.4 MG Oral for 90 Days Active amLODIPine Besylate 5 MG Oral for 90 Days Active Carvedilol 25 MG Oral for 90 Days Active Lantus SoloStar 100 UNIT/ML Subcutaneous for 17 Days Active UltiCare Short Pen Onawa 31G X 8 MM DIRECTED for 30 Days Active Encounters Encounter Location Date Provider Diagnosis BV [facility] [address] [facility] [address] [place] [address] 06/17/2024 Michael Suárez Other chronic pain G89.29 Assessments Encounter Date Diagnosis (ICD Code) Assessment Notes Treatment Notes Treatment Clinical Notes 06/17/2024 Other chronic pain (ICD-10 - G89.29) 06/17/2024 Other Tommy Hoover , am serving as a scribe to document services personally performed by Michael Suárez CNP, based upon my observations and the provider's statements to me. All documentation has been reviewed by the aforementioned [employer]ATE[employer] INSTALLER as well as Karlo Ortiz MD, prior [...] Low back pain, unspecified M54.50, G89.29 PRINTED Methocarbamol 750 MG 1 tablet Orally(muscle relaxant for daytime use, Do not take with Tizanidine- only take 1 tablet at a time) Twice a day for 30 days Meloxicam 7.5 MG 1 tablet Orally Once a day for 30 days tiZANidine HCl 4 MG 1 tablet as needed Orally once a day at bedtime for 30 days Treatment Notes Assessment Notes Other Tommy Hoover, am serving as a scribe to document services personally performed by Michael Suárez CNP, based upon my observations and the provider's statements to me. All documentation has been reviewed by the aforementioned SATELLITE TV INSTALLER as well as Karlo Ortiz MD, prior [...] decisions made by them. Next Appt Details Provider Name:Michael Suárez , 07/07/2024 11:45:00 AM, [address], [address], [place], [address], Progress Notes * Rafa RIVAS JrDOB: (64 yo M)Acc No.[id number]:06/17/2024 Progress Notes Patient:?Rafa RIVAS Jr Provider:?Michael Suárez NP :1960???Age:64 Y???Sex:Male Adiel e:06/17/2024 Phone: [facility] [facility] Pcp:Caryl Shi Subjective: * Chief Complaints: * ???1. 4 Week Follow-Up. * HPI: ???Clinic visit:? Rafa (Bill) returns regarding his chronic low back, neck, and knee pain. Procedure History : Several lumbar injections at [facility] have not been helpful. He also completed cervical injections at [place]. Genicular RFAs have been completed in the past without relief - 01/01/2024 Lumbar injection ([facility]) : good relief - 11/21/2022 L5-S1 F[place]MA : 60-70% relief - 12/07/2022 bilateral knee injections (no relief) - 04/13/2023 Right knee injection : 60% relief, spiked blood pressure Previous Consults : Srinath Curiel MD of [facility] for knee treatment. Dr. Hoff (Surgeon) discussed SCS vs. L5-S1 RFA Previous Therapy : He completed knee therapy in 2019 without benefit. He has also completed therapy at [facility]. Current Pain Medications : Oxycodone 5mg BID PRN, Gabapentin, Methocarbamol 750mg BID, Meloxicam 7.5mg QD, Tizanidine 4mg QHS, Meloxicam BID PRN, NyQuil Previous Pain Medications : Amitriptyline returns to clinic today for a follow up evaluation regarding his chronic ____ pain. I have reviewed the [facility] database and did not find any inconsistencies. We discussed his current symptoms and medications. I will continue with a treatment plan consisting of at this time. This treatment plan was reviewed with , and he was agreeable. I will continue to monitor his progress and he will follow up in one month or sooner if needed. Plan: 1. Discharge instructions reviewed verbally. Discussed the risks/benefits of prescribed medication. The patient is aware that medication may be discontinued at any time due to poor compliance with visits, and recommended treatment and/or if patient doesn't adhere to the signed pain contract. The patient was instructed to return to the office as scheduled and call with any questions, problems or concerns. * Medical History:? * Medications:?Taking tiZANidi ne HCl 4 MG Tablet 1 tablet as needed Orally once a day at bedtime , Taking Meloxicam 7.5 MG Tablet 1 tablet Orally Once a day , Taking Methocarbamol 750 MG Tablet 1 tablet Orally(muscle relaxant for daytime use, Do not take with Tizanidine- only take 1 tablet at a time) Twice a day , Taking UltiCare Short Pen Onawa 31G X 8 MM Miscellaneous DIRECTED , Taking Lantus SoloStar 100 UNIT/ML Solution Pen-injector Subcutaneous , Taking Carvedilol 25 MG Tablet Oral , Taking amLODIPine Besylate 5 MG Tablet Oral , Taking Tamsulosin HCl 0.4 MG Capsule Oral , Taking traZODone HCl 100 MG Tablet Oral , Taking Finasteride 5 MG Tablet TAKE ONE TABLET BY MOUTH ONCE DAILY Oral , Taking DULoxetine HCl 60 MG Capsule Delayed Release Particles Oral , Taking Spironolactone 50 MG Tablet Oral , Taking Furosemide 20 MG Tablet Oral , Taking oxyCODONE HCl 5 MG Tablet 1 tablet as needed Orally every 8-12 hours (max #3/day, ok to fill 05/10/2024) , Notes to Pharmacist: Low back pain, unspecified M54.50, G89.29 Objective: * Vitals:? * Examination: ???Musculoskeletal: ?Constitutional:?morbid obese body habitus,?in no acute distress.?Musculoskeletal:?Uses cane for ambulation.?Neurological?normal coordination upper extremities, normal coordination lower extremities, alert and oriented x3, normal mood and affect.? Assessment: * Assessment: 1.?Other chronic pain - G89. 29??? Plan: * Treatment: 2.?Others? Notes: I, Tommy Vides, am serving as a scribe to document [...] and the decisions made by them.?? * Billing Information: * Visit Code:? * Procedure Codes:? * Electronic signature of Stanislav Suárez CNP on 06/27/2024 at 08:51 AM CDT Sign off status: Pending * Provider:?Michael Suárez NP Date:?06/17 Generated for Andi fields/Mona/eTlitzysmitting on:?06/27/2024 08:51 AM CDT History and Physical Notes * Examination Category Sub-Category Detail Notes Musculoskeletal Constitutional: morbid obese bod y habitus, in no acute distress Musculoskeletal: Uses cane for ambula tion Skin: Neurological normal coordination upper extremities, normal coordination lower extremities, alert and oriented x3, normal mood and affect
--- OUTSIDE RECORDS SUMMARY | 2024-06-27 13:46 | XMS_ITS | Encounter Summary ---
Author Organization [facility] Address [address] [place] [address]. [place] [address] Care Team Providers Care Clinical Administrative Coordinator Name Role Phone Maya Goyal MD Primary Care Provider [phone] Eva Mckenna RN Unavailable [phone] Maya Goyal MD Unavailable Maya Goyal MD Unavailable Mehdi Sen MD Unavailable [phone] Erlin Delcid MD Unavailable [phone] Elicia Bedoya [facility] Unavailable [phone] Kae Whipple [facility] Unavailable Mehdi Bass DPM Unavailable [phone] Kae Whipple [facility] Unavailable [phone] Maya Goyal MD Unavailable No Ref-Primary, Physician Primary Care Provider Mehdi Bass DPM Unavailable [phone] [facility] Unavailable Encounter Details Date Type Department [...] Sex Assigned at Male 09/17/2018 5:00 PM EDUCATION AND DEVELOPMENT MANAGER Gender Identity Male 09/17/2018 5:00 PM EDUCATION AND DEVELOPMENT MANAGER Sexual Orientation Straight 09/17/2018 5: 00 PM EDUCATION AND DEVELOPMENT MANAGER documented as of this encounter Plan of Treatment Not on file documented as of this encounter Visit Diagnoses Not on filedocumented in this encounter Additional Health Concerns Infection Onset Date Last Indicated Resolved Time COVID-19 08/27/2020 08/27/2020 09/17/2020 11:4 0 PM EDUCATION AND DEVELOPMENT MANAGER Assessment Noted Time PHQ-9 Depression Total Score: 14 017 11:50 AM EDUCATION AND DEVELOPMENT MANAGER documented as of this encounter Care Teams Clinical Administrative Coordinator Relationship Specialty Start Date End Date Maya Goyal MD [address] [place] [id number] PCP - General 05/03/04 11/14/22 Maya Goyal MD [address] [place] [address] [id number] PCP - Assigned PCP 10/22/09 11/26/18 No Ref-Primary, Physician PCP - General 11/15/22 Eva Mckenna RN Clinic Windows Application Administrator Primary Care - CC 02/19/18 Maya Goyal MD [address] [place] [address] [id number] Assigned PCP 06/27/12 10/17/23 Mehdi Sen MD [address] [place] [address] [id number] Assigned Musculoskeletal Provider 07/16/20 12/18/20 Erlin Delcid MD [address] [place] [address] Assigned Surgical Provider 09/12/20 Elicia Bedoya, [facility] [address] [facility] [address] [place] [address] Pharmacist Pharmacist 11/09/20 12/06/20 Kae Whipple [facility] [address] [place] [address] Pharmacist Pharmacist 11/30/20 12/06/20 [place] [address] [place] [address] Assigned Musculoskeletal Provider 08/14/21 10/27/22 Kae Whipple [facility] [address] [place] [address] Assigned MTM Pharmacist 03/18/22 Maya Goyal MD [address] [facility] [address] [place] [address] Assigned Pain Medication Provider 10/02/22 03/23/23 Mehdi [place] DPM [address] [place] [address] Assigned Surgical Provider 10/28/22 [facility] [address] [place] [address] Assigned PCP 10/18/23 documented as of this encounter
--- OUTSIDE RECORDS SUMMARY | 2024-06-27 13:46 | XMS_ITS | Encounter Summary ---
Author Organization [facility] Address [address] [place] [address]. [place] [address] Care Team Providers Care Assignment Clerk Name Role Phone Maya Goyal MD Primary Care Provider [phone] None Primary Care Provider UnavailEva Brannon RN Unavailable [phone] Maya Goyal MD Unavailable Maya Goyal MD Unavailable Mehdi Sen MD Unavailable [phone] Erlin Delcid MD Unavailable [phone] Elicia Bedoya [facility] Unavailable [phone] Kae Whipple [facility] Unavailable [phone] Mehdi Bass DPM Unavailable [phone] Kae Whipple [facility] Unavailable [phone] Maya Goyal MD Unavailable No Ref-Primary, Physician Primary Care Provider Mehdi Bass DPM Unavailable [phone] [facility] Unavailable Encounter Details Date Type Department Care Team (Late st Contact Info) Description 03/10/[address] [address] Jonathan Casillas MD XXX RETIRED XXX [address] [place] [id number] Social History Tobacco Use Types Packs/Day Years Used Date Smoking Tobacco: Never Assessed Sex and Gender Information Value Date Recorded Sex Assigned at Male 09/17/2018 5:00 PM STEEL BARREL REAMER Gender Identity Male 09/17/2018 5:00 PM STEEL BARREL REAMER Sexual Orientation Straight 09/17/2018 5: 00 PM STEEL BARREL REAMER documented as of this encounter Plan of Treatment Not on file documented as of this encounter Visit Diagnoses Not on filedocumented in this encounter Additional Health Concerns Infection Onset Date Last Indicated Resolved Time COVID-19 08/27/2020 08/27/2020 09/17/2020 11:4 0 PM STEEL BARREL REAMER documented as of this encounter Care Teams Assignment Clerk Relationship Specialty Start Date End Date Maya Goyal MD [address] [place] [address] PCP - General 05/03/04 11/14/22 None PCP - General 12/01/02 05/02/04 Maya Goyal MD [address] [place] [address] [id number] PCP - Assigned PCP 10/22/09 11/26/18 No Ref-Primary, Physician PCP - General 11/15/22 Eva Mckenna RN Clinic Ham Marker Primary Care - CC 02/19/18 Maya Goyal MD [address] [place] [address] [id number] Assigned PCP 06/27/12 10/17/23 Mehdi Sen MD [address] [place] [address] Assigned Musculoskeletal Provider 07/16/20 12/18/20 Erlin Delcid MD [address] [address] Assigned Surgical Provider 09/12/20 Elicia Bedoya, [facility] [address] [place] [address] [place] [address] Pharmacist Pharmacist 11/09/20 12/06/20 Kae Whipple [facility] [address] [place], [place] [address] Pharmacist Pharmacist 11/30/20 12/06/20 Mehdi [place] D[place] [address] [address] Assigned Musculoskeletal Provider 08/14/21 10/27/22 Kae Whipple [facility] [address] [place], [place] 8[address] Assigned MTM Pharmacist 03/18/22 Maya Goyal MD [address] [id number] Assigned Pain Medication Provider 10/02/22 03/23/23 Mehdi Bass DPM [address] [place], [place] [address] Assigned Surgical Provider 10/28/22 [facility] [address] [place] [address] Assigned PCP 10/18/23 documented as of this encounter
--- OUTSIDE RECORDS SUMMARY | 2024-06-27 13:46 | XMS_ITS ---
Author Organization [facility] Address [address] [place] [address] [address] [place] [address] Care Team Providers Care Distribution Dispatcher Name Role Phone Caryl Shi Primary Care Provider Karlo Hewitt Unavailable [phone] Catia Swift MD Unavailable Unavailable Jose Armando, Michael Unavailable [phone] REASON FOR VISIT bridge Medications Medication SIG (Take, Route, Frequency, Duration) Notes Start Date End Date Status oxyCODONE HCl 5 MG 1 tablet as needed Orally every 8-12 hours (max #3/day, ) for 21 days Low back pain, unspecified M54.50, G89.29 PRINTED 06/17/2024 Active Encounters Encounter Location Date Provider Diagnosis [facility] [address] [place] [address] [address] [place] [address] 06/17/2024 Michael Suárez Other chronic pain G89.29 Assessments Encounter Date Diagnosis (ICD Code) Assessment Notes Treatment Notes Treatment Clinical Notes 06/17/2024 Other chronic pain (ICD-10 - G89.29) Plan Of Treatment Medication Medication Name Sig Start Date Stop Date Notes oxyCODONE HCl 5 MG 1 tablet as needed Orally every 8-12 hours (max #3/day, ) for 21 days 06/17/2024 Low back pain, unspecified M54.50, G89.29 PRINTED Next Appt Details Provider Name:Michael Suárez , 07/07/2024 11:45:00 AM, [address], [address], [place], [address], Progress Notes * Rafa RIVAS JrDOB: 8 (64 yo M)Acc No.[id number]:06/17/2024 Patient:?Rafa RIVAS Jr :1960???Age:64 Y???Sex:Male Phone: Address:[address], [place] [address] * Refills? Refill oxyCODONE HCl Tablet, 5 MG, Orally, 49, 1 tablet as needed, every 8-12 hours (max #3/day, ), 21 days, Refills=0 * true * Date:? Generated for Andi fields/Mona/eTransmitting on:?06/27/2024 01:46 PM CDT
--- OUTSIDE RECORDS SUMMARY | 2024-06-27 13:46 | XMS_ITS ---
Author Organization [facility] Address [address] [place] [address] [address] [facility] [place] [address] Care Team Providers Care Transportation Consultant Name Role Phone Caryl Shi Primary Care Provider Karlo Hewitt Unavailable [phone] Catia Swift MD Unavailable Unavailable Jose Armando, Michael Unavailable [phone] REASON FOR VISIT F/u week of 06/16--JF BV, scheduled Medications Medication SIG (Take, Route, Frequency, Duration) Notes Start Date End Date Status oxyCODONE HCl 5 MG 1 tablet as needed Orally every 8-12 hours (max #3/day, ok to fill 05/10/2024) for 30 days Low back pain, unspecified M54.50, G89.29 05/10/2024 Active Encounters Encounter Location Date Provider Diagnosis [facility] [address] [place] [address] [address] [facility] [place] [address] 05/02/2024 Michael Jose Armando Other chronic pain G89.29 Assessments Encounter Date [...] 05/10/2024 Low back pain, unspecified M54.50, G89.29 Next Appt Details Provider Name:Michael Jose Armando , 07/07/2024 11:45:00 AM, [address], [address], [place], [address], Progress Notes * Rafa RIVAS JrDOB: (63 yo M)Acc No.[id number]:05/02/2024 Patient:?Rafa RIVAS Jr :1960???Age:63 Y???Sex:Male Phone: Address:[address] [place] [address] [address], [facility] [place] [address] * Refills? Refill oxyCODONE HCl Tablet, 5 MG, Orally, 70, 1 tablet as needed, every 8-12 hours (max #3/day, ok to fill 05/10/2024), 30 days, Refills=0 * true * Date:? Generated for Andi fields/Mona/Chinedusmitting on:?06/27/2024 01:46 PM CDT
--- OUTSIDE RECORDS SUMMARY | 2024-06-27 13:46 | XMS_ITS | Encounter Summary ---
Author Organization [facility] Address [address] [place] [address]. [place] [address] Care Team Providers Care Neighborhood Worker Name Role Phone Maya Goyal MD Primary Care Provider [phone] None Primary Care Provider UnavailEva Brannon RN Unavailable [phone] Maya Goyal MD Unavailable Maya Goyal MD Unavailable Mehdi Sen MD Unavailable [phone] Erlin Delcid MD Unavailable [phone] Elicia Bedoya [facility] Unavailable [phone] Kae Whipple [facility] Unavailable [phone] Mehdi Bass DPM Unavailable [phone] Kae Whipple [facility] Unavailable [phone] Maya Goyal MD Unavailable No Ref-Primary, Physician Primary Care Provider Mehdi Bass DPM Unavailable [phone] [facility] Unavailable Encounter Details Date Type Department Care Team (Late st Contact Info) Description 12/15/2002 [place] [address] [place] [address] Maya Goyal MD [address] [facility] [address] [place] [address] ER ENC (Primary Dx) Social History Tobacco [...] Sex Assigned at Male 09/17/2018 5:00 PM SHIPPING SPECIALIST Gender Identity Male 09/17/2018 5:00 PM SHIPPING SPECIALIST Sexual Orientation Straight 09/17/2018 5: 00 PM SHIPPING SPECIALIST documented as of this encounter Progress Notes * 12/15/2002 11:59 PM [id number] 00:00 Emergency Department Encounter-[facility] TRACY BYRNE) [Entered: 00:00 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 HISTORY OF PRESENT ILLNESS: Rafa Hickey is a 42-year-old white male who comes to us from [facility] [employer] where he was working out on the [employer]. Apparently his friend pulled the tug away [...] right-handed. SOCIAL HISTORY: The patient has worked [employer] for the last eighteen years. REVIEW OF [...] related. _ TRACY BYRNE MD MT: Document: [id number] Electronically filed by Stella Paul 12/18 11:45 AM documented in this encounter Plan of Treatment Not on file documented as of this encounter Visit Diagnoses Diagnosis ER ENC- Primary documented in this encounter Additional Health Concerns Infection Onset Date Last Indicated Resolved Time COVID-19 08/27/2020 08/27/2020 09/17/2020 11:4 0 PM SHIPPING SPECIALIST documented as of this encounter Care Teams Neighborhood Worker Relationship Specialty Start Date End Date Maya Goyal MD [address] [place] [address] PCP - General 05/03/04 11/14/22 None PCP - General 12/01/02 05/02/04 Maya Goyal MD [address] [place], [place] [address] PCP - Assigned PCP 10/22/09 11/26/18 No Ref-Primary, Physician PCP - General 11/15/22 Eva Mckenna, RN Clinic Air Table Operator Primary Care - CC 02/19/18 Maya Goyal MD [address] [facility] [address] [place], [place] [address] Assigned PCP 06/27/12 10/17/23 Mehdi Sen MD [address] [place], [place] 4[address] Assigned Musculoskeletal Provider 07/16/20 12/18/20 Erlin Delcid MD [address] 326685 Assigned Surgical Provider 09/12/20 Elicia Bedoya, [facility] [address] [place] [address] [address] [place], [place] [address] Pharmacist Pharmacist 11/09/20 12/06/20 Kae Whipple [facility] [address] [place], [place] [address] Pharmacist Pharmacist 11/30/20 12/06/20 Mehdi Bass DPM [address] [facility] [address] [place], [place] [address] Assigned Musculoskeletal Provider 08/14/21 10/27/22 Kae Whipple [facility] [address] [place], [place] [address] Assigned MTM Pharmacist 03/18/22 Maya Goyal MD [address] [facility] [address] [place] [address] Assigned Pain Medication Provider 10/02/22 03/23/23 Mehdi Bass DPM [address] [facility] [address] [place] [address] Assigned Surgical Provider 10/28/22 [facility] [address] [place] [address] Assigned PCP 10/18/23 documented as of this encounter
--- OUTSIDE RECORDS SUMMARY | 2024-06-27 13:46 | XMS_ITS | Encounter Summary ---
Author Organization [facility] Address [address] [place] [address]. [place] [address] Care Team Providers Care Asbestos Cloth Inspector Name Role Phone Maya Goyal MD Primary Care Provider [phone] Eva Mckenna RN Unavailable [phone] Maya Goyal MD Unavailable Maya Goyal MD Unavailable Mehdi Sen MD Unavailable [phone] Erlin Delcid MD Unavailable [phone] Elicia Bedoya [facility] Unavailable [phone] Kae Whipple [facility] Unavailable Mehdi Bass DPM Unavailable [phone] Kae Whipple [facility] Unavailable [phone] Maya Goyal MD Unavailable No Ref-Primary, Physician Primary Care Provider Mehdi Bass DPM Unavailable [phone] [facility] Unavailable Encounter Details Date Type Department Care Team (Late st Contact Info) Description 10/17/2010 [facility] [place] Medical Advice [facility] [address] [place] [address] Maya Goyal MD [address] [place] [address] [id number] Social History Tobacco Use Types Packs/Day Years Used Date Smoking Tobacco: Every Day Cigarettes 0.5 20 Alcohol Use Standard Drinks/Week Comments Yes 0 (1 standard drink = 0.6 oz pur e alcohol) Social once every 3 months Sex and Gender Information Value Date Recorded Sex Assigned at Male 09/17/2018 5:00 PM KETTLE OPERATOR HEAD Gender Identity Male 09/17/2018 5:00 PM KETTLE OPERATOR HEAD Sexual Orientation Straight 09/17/2018 5: 00 PM KETTLE OPERATOR HEAD documented as of this encounter Plan of Treatment Not on file documented as of this encounter Visit Diagnoses Not on filedocumented in this encounter Additional Health Concerns Infection Onset Date Last Indicated Resolved Time COVID-19 08/27/2020 08/27/2020 09/17/2020 11:4 0 PM KETTLE OPERATOR HEAD documented as of this encounter Care Teams Asbestos Cloth Inspector Relationship Specialty Start Date End Date Maya Goyal MD [address] [place] [id number] PCP - General 05/03/04 11/14/22 Maya Goyal MD [address] [place] [address] [id number] PCP - Assigned PCP 10/22/09 11/26/18 No Ref-Primary, Physician PCP - General 11/15/22 Eva Mckenna RN Clinic Crm Technical Lead Primary Care - CC 02/19/18 Maya Goyal MD [address] [place] [address] [id number] Assigned PCP 06/27/12 10/17/23 Mehdi Sen MD [address] [place] [id number] Assigned Musculoskeletal Provider 07/16/20 12/18/20 Erlin Delcid MD [address] [address] Assigned Surgical Provider 09/12/20 Elicia Bedoya, [facility] [address] [place] [address] [address] [place] [address] Pharmacist Pharmacist 11/09/20 12/06/20 Kae Whipple [facility] [address] [place] [address] Pharmacist Pharmacist 11/30/20 12/06/20 Mehdi Bass DPM [id number] [place] [id number] Assigned Musculoskeletal Provider 08/14/21 10/27/22 Kae Whipple [facility] [address] [place] [address] Assigned MTM Pharmacist 03/18/22 Maya Goyal MD [address] [address] Assigned Pain Medication Provider 10/02/22 03/23/23 Mehdi Bass DPM [id number] [place] [address] [place] [id number] Assigned Surgical Provider 10/28/22 [facility] [address] [place] [address] Assigned PCP 10/18/23 documented as of this encounter
--- OUTSIDE RECORDS SUMMARY | 2024-06-27 13:46 | XMS_ITS | Encounter Summary ---
Author Organization [facility] Address [address] [place] [address]. [place] [address] Care Team Providers Care Toe Lining Closer Name Role Phone Maya Goyal MD Primary Care Provider [phone] Eva Mckenna RN Unavailable [phone] Maya Goyal MD Unavailable Maya Goyal MD Unavailable Mehdi Sen MD Unavailable [phone] Erlin Delcid MD Unavailable [phone] Elicia Bedoya [facility] Unavailable [phone] Kae Whipple [facility] Unavailable [phone] Mehdi Bass DPM Unavailable [phone] Kae Whipple [facility] Unavailable [phone] Maya Goyal MD Unavailable No Ref-Primary, Physician Primary Care Provider Mehdi Bass DPM Unavailable [phone] [facility] Unavailable Encounter Details Date Type Department Care Team (Late st Contact Info) Description 08/26/2006 [facility] [address] [place] [address] Maya Goyal MD [address] [place] [address] [id number] Social History Tobacco Use Types Packs/Day Years Used Date Smoking Tobacco: Every Day Cigarettes 0.5 20 Alcohol Use Standard Drinks/Week Comments Yes 0 (1 standard drink = 0.6 oz pur e alcohol) Social once every 3 months Sex and Gender Information Value Date Recorded Sex Assigned at Male 09/17/2018 5:00 PM TAX EXAMINING TECHNICIAN Gender Identity Male 09/17/2018 5:00 PM TAX EXAMINING TECHNICIAN Sexual Orientation Straight 09/17/2018 5: 00 PM TAX EXAMINING TECHNICIAN documented as of this encounter Plan of Treatment Not on file documented as of this encounter Visit Diagnoses Not on filedocumented in this encounter Additional Health Concerns Infection Onset Date Last Indicated Resolved Time COVID-19 08/27/2020 08/27/2020 09/17/2020 11:4 0 PM TAX EXAMINING TECHNICIAN documented as of this encounter Care Teams Toe Lining Closer Relationship Specialty Start Date End Date Maya Goyal MD [address] [place] [id number] PCP - General 05/03/04 11/14/22 Maya Goyal MD [address] [place] [address] [id number] PCP - Assigned PCP 10/22/09 11/26/18 No Ref-Primary, Physician PCP - General 11/15/22 Eva Mckenna RN Clinic Data Integrity Analyst Primary Care - CC 02/19/18 Maya Goyal MD [address] [place] [address] [phone] Assigned PCP 06/27/12 10/17/23 Mehdi Sen MD [address] [place] [id number] Assigned Musculoskeletal Provider 07/16/20 12/18/20 Erlin Delcid MD [address] [address] Assigned Surgical Provider 09/12/20 Elicia Bedoya, [facility] [address] [place] [address] [address] [place] [address] Pharmacist Pharmacist 11/09/20 12/06/20 Kae Whipple [facility] [address] [place] [address] Pharmacist Pharmacist 11/30/20 12/06/20 Mehdi Bass DPM [id number] [place] [id number] Assigned Musculoskeletal Provider 08/14/21 10/27/22 Kae Whipple [facility] [address] [place] [address] Assigned MTM Pharmacist 03/18/22 Maya Goyal MD [address] [address] Assigned Pain Medication Provider 10/02/22 03/23/23 Mehdi Bass DPM [id number] [place] [address] [place] [address] Assigned Surgical Provider 10/28/22 [facility] [address] [place] [address] Assigned PCP 10/18/23 documented as of this encounter
--- OUTSIDE RECORDS SUMMARY | 2024-06-27 13:46 | XMS_ITS | Clinical Summary ---
Author Organization [facility] Address [place], [place] [address] Care Team Providers Care Time Piece Repairer Name Role Phone Sarahi Roche RN Unavailable [phone] Caryl Shi DO Primary Care Provider [phone] Allergies No known active allergies Medications Medication Sig Dispensed Refills Start Date End Date Status Multivitamin Cmb No.21-Iron-FA 18-400 mg-mcg tab Take 1 Tablet by mouth once daily. Active finasteride (PROSCAR) 5 mg tabletIndications :BPH with urinary obstruction Take 1 Tablet (5 mg) by mouth once daily. 30 Tablet 11 02/22/2022 Active tamsulosin (FLOMAX) 0.4 mg capsuleIndication s:BPH with urinary obstruction Take 1 Capsule (0.4 mg) by mouth once daily after a meal. 90 Capsule 3 06/30/2022 Active oxyCODONE (ROXICODONE) 5 mg immediate release tablet TAKE ONE TABLET BY MOUTH EVERY 12 HOURS NEEDED - *CAUTION: OPIOID. RISK OF OVERDOSE AND ADDICTION. 11/30/2022 Active FreeStyle Susanna 2 SensorIndications :Type 2 diabetes mellitus with stage 1 chronic kidney disease, with long-term current use of insulin (HC) To be used to read blood sugars per telephone mechanic's directions. Change each sensor every 14 days 6 Each 12 2023 Active FreeStyle Susanna 2 ReaderIndications :Type 2 diabetes mellitus with stage 1 chronic kidney disease, with long-term current use of insulin (HC) To be used to read blood sugars per telephone mechanic's directions. 1 Each 2023 Active rosuvastatin (CRESTOR) 10 mg tabletIndications :Hyperlipidemia LDL goal <100 Take 1 Tablet (10 mg) by mouth at bedtime. 90 Tablet 3 08/15/2023 Active UltiCare Pen Needle 31 gauge x 5/16Indications: Type 2 diabetes mellitus with stage 1 chronic kidney disease, without long-term current use of insulin (HC) As directed. For administering insulin at home. 300 Each 3 10/07/2023 Active furosemide (LASIX) 20 mg tabletIndications :HTN (hypertension),Bi lateral lower extremity edema Take 1 Tablet (20 mg) by mouth once daily in the morning. 90 Tablet 3 02/06/2024 Active insulin aspart, U-100, (NOVOLOG FLEXPEN) 100 unit/mL (3 mL) penIndications:Ty pe 2 diabetes mellitus with complication, with long-term current use of insulin (HC) Inject 10 units subcutaneous two times daily before meals. 15 mL 3 03/06/2024 Active lisinopril-hydroc hlorothiazide (10-12.5 mg) tablet (PRINZIDE; ZESTORETIC)Indica tions:Benign essential hypertension Take 1 Tablet by mouth once daily. 100 Tablet 2 04/02/2024 Active FreeStyle Susanna 2 SensorIndications :Type 2 diabetes mellitus with complication, with long-term current use of insulin (HC) To be used to read blood sugars per telephone mechanic's directions. 6 Each 3 04/02/2024 Active DULoxetine (CYMBALTA) 60 mg Delayed-release capsuleIndication s:Mild episode of recurrent major depressive disorder (HC) Take 1 Capsule (60 mg) by mouth once daily. 90 Capsule 04/02/2024 Active carvediloL (COREG) 25 mg tabletIndications :Benign essential hypertension Take 2 Tablets (50 mg) by mouth two times daily with meals. 360 Tablet 3 04/22/2024 Active empagliflozin (JARDIANCE) 25 mg tabletIndications :Type 2 diabetes mellitus with complication, with long-term current use of insulin (HC) Take 1 Tablet (25 mg) by mouth once daily. 90 Tablet 05/05/2024 Active DULoxetine (CYMBALTA) 30 mg Delayed-release capsuleIndication s:Mild episode of recurrent major depressive disorder (HC) Take 1 Capsule (30 mg) by mouth once daily. Take with 60 mg capsule for 90 mg total per day. 90 Capsule 05/05/2024 Active magnesium oxide (MAG-OX 400) 400 mg tabletIndications :Hypomagnesemia Take 1 Tablet (400 mg) by mouth once daily. 90 Tablet 05/09/2024 Active magnesium oxide (MAG-OX 400) 400 mg tabletIndications :Hypomagnesemia Take 1 Tablet (400 mg) by mouth once daily. 90 Tablet 1 05/07/2024 Active metFORMIN (GLUCOPHAGE) 500 mg tabletIndications :Type 2 diabetes mellitus with stage 3b chronic kidney disease, with long-term current use of insulin (HC) TAKE 2 TABLETS BY MOUTH EVERY MORNING AND 2 TABLETS IN THE EVENING WITH MEALS 360 Tablet 2 05/17/2024 Active insulin degludec, U-200, (Tresiba FlexTouch U-200) 200 unit/mL (3 mL) penIndications:Ty pe 2 diabetes mellitus with stage 1 chronic kidney disease, with long-term current use of insulin (HC) Inject 88 units subcutaneous at bedtime. 18 mL 5 06/12/2024 Active gabapentin (NEURONTIN) 300 mg capsuleIndication s:Diabetic peripheral neuropathy associated with type 2 diabetes mellitus (HC) Take 1 Capsule (300 mg) by mouth three times daily. 270 Capsule 2 06/12/2024 Active gabapentin (NEURONTIN) 300 mg capsuleIndication s:Diabetic peripheral neuropathy associated with type 2 diabetes mellitus (HC) Take 1 Capsule (300 mg) by mouth three times daily. 270 Capsule 2 08/28/2023 06/12/20 24 Discontinu ed(Reorder (E-cancel not sent)) insulin degludec, U-200, (Tresiba FlexTouch U-200) 200 unit/mL (3 mL) penIndications:Ty pe 2 diabetes mellitus with stage 1 chronic kidney disease, with long-term current use of insulin (HC) Inject 88 units subcutaneous at bedtime. 18 mL 05/02/2024 06/10/20 24 Discontinu ed(Reorder (E-cancel not sent)) Active Problems Problem Noted Date Diagnosed Date Seborrheic keratosis 01/28/2024 Diabetic ulcer of toe associ ated with type 2 diabetes mellitus, limited to breakdown of skin, unspecified laterality 01/28/2024 Ectatic abdominal aorta 08/31/2023 Overview (08/31/2023): Recommended f/up in 5 years Hypertriglyceridemia 08/15/2023 Stage 3b chronic kidney disease 08/15/2023 Type 2 diabetes mellitus wit h stage 3b chronic kidney disease, with long-term current use of insulin 08/15/2023 Primary osteoarthritis of both knees 04/13/2023 Controlled substance agreement signed 05/02/2022 Overview (05/02/2022): [facility] [facility]. Symone Flores CMA 10:37 AM [...] LDL goal <100 07/24/2010 Allergic rhinitis 05/13/2004 Overview (12/08/2021): Problem list name updated by automated process. Provider to review Benign essential hypertension 06/17/2002 Resolved Problems Problem Noted Date Diagnosed Date Resolved Date PAD (peripheral artery disease) 10/04/2022 11/13/2022 Encounters Date Type Department Care Team Description 06/27/2024 9:10 AM CDT Office Visit [facility] [address] [place] [address] Caryl Shi, DO Foot Problem (Sores on 7/10 toes, for 1 week. ) 06/27/2024 Travel 06/10/2024 Refill [facility] [address] [place] [address] Caryl Shi, DO Refill Request (Tresiba Flextouch 200 units/ml sopn ) 06/09/2024 11:45 AM CDT Ancillary Procedure [facility] [address] 06/09/2024 Travel 05/29/2024 2:00 PM CDT Office Visit [facility] [address] [place] [address] Song Gray, [facility] Visit 05/29/2024 Travel 05/21/2024 11:15 AM CDT Office Visit [address] [place] [address] Caryl Shi, ER Follow up (Fecal compaction, nfld er. /Struggling with sleep ) 05/21/2024 Travel 05/14/2024 Refill [facility] [place] [address] Caryl Shi DO Refill Request (METFORMIN) 05/08/[address] [place] [address] Caryl Shi DO Prior Authorization (insulin degludec, U-200, (Tresiba FlexTouch U-200) 200 unit/mL (3 mL) pen - PA NOT NEEDED) 05/06/2024 Refill [place] [address] [facility] [place] [address] Caryl Shi DO Refill Request (MAGNESIUM OXIDE 400MG TABS) 05/06/[address] [place] [address] Caryl Shi DO Health Maintenance Update (HEALTH UPDATE) 05/05/2024 12:45 PM CDT Office Visit [address] [place] [address] Caryl Shi DO Diabetes; Wound Check (Wound on back of right leg above ankle, present for 2-3 weeks. ) 05/05/2024 11:00 AM CDT Office Visit [address] [place] [address] Luis Eduardo Watts MD Musculoskeletal Problem (Follow up, back pain) 05/05/2024 Travel 05/03/2024 Orders Only [facility] Scanner 1 scan: (1-Ord) [place] [facility], 05/03/2024 05/03/2024 Orders Only [facility] Scanner 1 scan: (1-Ord) [place] [facility], 05/03/2024 04/30/2024 11:40 AM CDT Office Visit [facility] [place] [facility] [address] [place] [address] Girma Palacio MD Follow Up (Follow up after MRI 03/31/24 and EMG 04/03/24 ) 04/30/2024 Refill [facility] [address] [place] [address] Caryl Shi, Refill Request (JARDIANCE 25MG TABS) 04/30/2024 Travel 04/30/2024 Refill [facility] [address] [place] [address] Caryl Shi DO Refill Request (Tresiba Flextouch 200unit/ml) 04/22/2024 Telephone [facility] [address] [place] [address] Caryl Shi DO Medication Management (carvediloL (COREG) 25 mg tablet) 04/14/2024 Refill [facility] [address] [place] [address] Catia Swift MD Refill Request (Carvedilol) 04/03/2024 10:15 AM CDT - 04/03/2024 11:59 PM CDT Hospital Encounter [facility]W EMG/EEG/EP [address] [address] Girma Palacio MD Beck, Elizabeth Haule, MD Balance problem 04/02/2024 12:45 PM CDT Office Visit [facility] [address] [place] [address] Caryl Shi, DO Anxiety (Feels his mood is still impacted by his physical impairments. Sleep is also heavily impacted); Depression 04/02/2024 Travel 04/01/2024 Telephone [facility] [place] [facility] [address] [facility] [address] Girma Palacio MD Results (Brain MRI ) 03/31/2024 11:00 AM CDT Ancillary Procedure [facility] [address] [facility] [address] 03/31/2024 Travel 03/31/2024 Refill [facility] [address] [place] [address] Catia Swift MD Refill Request (Lisinopril-hydrochlor othiazide 10 Mg-12.5 Mg) from Last 3 Months Immunizations Name Administration [...] Sign Reading Time Taken Comments Blood Pressure 119/77 06/27/2024 9:10 AM CDT Pulse 80 06/27/2024 9:10 AM CDT Temperature 36.7 ??C (98 ??F) 05/05/2024 11:07 AM CDT Respiratory Rate 14 06/19/2022 11:22 AM CDT Oxygen Saturation 98% 05/21/2024 11:28 AM CDT Inhaled Oxygen Concentration - - Weight 155.6 kg (343 lb) 05/05/2024 12:40 PM CDT Height 188 cm (6' 2) 05/05/2024 11:07 AM CDT Body Mass Index 44.04 05/05/2024 11:07 AM CDT Plan of Treatment Upcoming Encounters Date Type Department Care Team (Late st Contact Info) Description 07/04/2024 9:00 AM CDT Procedure Only [facility] [address] [place] [address] Luis Eduardo Watts MD [address] [place] [address] 07/10/2024 1:20 PM CDT Office Visit [facility] [address] [address] Keri Reid DPM [address] [address] 08/07/2024 12:45 PM TEACHER PRIVATE Office Visit [facility] [address] [place] [address] Caryl Shi DO [address] [place] [address] Health Maintenance Due Date Last Done Comments Pneumococcal series for age 65+ (1 of 2 - PCV) 1966 COVID-19 vaccine series ( - 2023- season) 2024 Influenza for age 65+ 05/25/2024 08/04/2003 Colonoscopy [...] 10/23/2022 AAA screening age 65-74 Completed 08/27/2023 Procedures Procedure Name Priority Date/Time Associated Diagnosis Comments MR HIP RIGHT WO Routine 06/09/2024 11:27 AM CDT Gluteal tendonitis of right buttock Chronic right hip pain HEMOGLOBIN A1C MONITORING (POCT) Routine 05/05/2024 12:10 PM CDT Type 2 [...] ABD AORTA SCREENING Routine 08/27/2023 2:10 PM TEACHER PRIVATE Screening for AAA (aortic abdominal aneurysm) LIPID PANEL W REFLEX MEASURED LDL Routine 07/26/2023 2:25 PM CDT Hyperlipidemia LDL goal <100 from Last 3 Months or Most Recently Relevant to Health Maintenance Results * MR HIP RIGHT WO (06/09/2024 11:27 AM CDT) Anatomical Region Laterality Modality HIPR Magnetic Resonan ce 06/12/2024 9:26 AM CDT Impressions 06/12/2024 9:26 AM CDT 1. Degenerative arthrosis of the right hip. Full-thickness grade 4 acetabular articular cartilage loss. High-grade femoral head cartilage wear (grade 3). Labral degeneration with degenerative tearing. 2. No fracture or AVN. 3. Tendinosis of the right common hamstring tendon with chronic partial tearing. 4. Chronic complete tear of the left common hamstring tendon. 5. Degenerative changes of the spine with transitional lumbosacral segment. Degenerative changes of the sacroiliac joints. Dictated by Ramírez Ramirez MD @ 06/12/2024 9:26:47 AM (Electronically Signed) Narrative 06/12/2024 9:26 AM CDT For Patients: ??As a result of the Century Cures Act, medical imaging exams and procedure reports are released immediately into your electronic medical record. ??You may view this report before your referring provider. ??If you have questions, please contact your health care provider. CLINICAL INDICATION: Right hip pain. Gluteal tendinitis. COMPARISON IMAGING STUDIES: No prior. TECHNICAL: Axial and coronal PDFS small field of view images of the right hip. Inadvertently, sagittal PD fat-sat small tcmon-lt-jbqs images were not acquired. Coronal and axial T1 and PDFS large field of view images of the entire pelvis. ??1.5 Evie MR scanner. ?? FINDINGS: RIGHT HIP: Degenerative arthrosis of the right hip. There are subchondral marrow changes involving the anterior superior to superior lateral acetabulum which implies underlying full-thickness grade 4 cartilage loss. High-grade right femoral head articular cartilage wear (grade 3). Degenerative labral changes with degenerative labral tearing. No right hip joint effusion. LEFT HIP: Degenerative arthrosis of the left hip. There is diffuse thinning of the articular cartilage along with degenerative labral changes. No left hip joint effusion. OSSEOUS STRUCTURES: There is no acute fracture or avascular necrosis. There are a few scattered bone islands present. MUSCULOTENDINOUS STRUCTURES AND BURSAE: No significant distal gluteal tendon tear. Chronic complete tear of the left common hamstring tendon. Tendinosis and chronic partial tearing of the right common hamstring tendon. Distal iliopsoas tendons are intact. No iliopsoas bursitis. OTHER FINDINGS: Degenerative changes of the spine. Transitional lumbosacral segment. Degenerative changes of the sacroiliac joints. INTRAPELVIC CONTENTS: Distended urinary bladder. Colonic diverticulosis without diverticulitis. Small fat containing inguinal hernias. Procedure Note Ramírez Ramirez MD - 06/12/2024 For Patients: As a result of the Century Cures Act, medical imagingexams and procedure reports are released immediately into your electronicmedical record. You may view this report before your referring provider.If you have questions, please contact your health care provider. CLINICAL INDICATION: Right hip pain. Gluteal tendinitis. COMPARISON IMAGING STUDIES: No prior. TECHNICAL: Axial and coronal PDFS small field of view images of the right hip.Inadvertently, sagittal PD fat-sat small gowka-rn-osqj images were notacquired. Coronal and axial T1 and PDFS large field of view images of theentire pelvis. 1.5 Evie MR scanner. FINDINGS: RIGHT HIP: Degenerative arthrosis of the right hip. There are subchondral marrowchanges involving the anterior superior to superior lateral acetabulumwhich implies underlying full-thickness grade 4 cartilage loss. High-graderight femoral head articular cartilage wear (grade 3). Degenerative labralchanges with degenerative labral tearing. No right hip joint effusion. LEFT HIP: Degenerative arthrosis of the left hip. There is diffuse thinning of thearticular cartilage along with degenerative labral changes. No left hipjoint effusion. OSSEOUS STRUCTURES: There is no acute fracture or avascular necrosis. There are a fewscattered bone islands present. MUSCULOTENDINOUS STRUCTURES AND BURSAE: No significant distal gluteal tendon tear. Chronic complete tear of theleft common hamstring tendon. Tendinosis and chronic partial tearing ofthe right common hamstring tendon. Distal iliopsoas tendons are intact. Noiliopsoas bursitis. OTHER FINDINGS: Degenerative changes of the spine. Transitional lumbosacral segment.Degenerative changes of the sacroiliac joints. INTRAPELVIC CONTENTS: Distended urinary bladder. Colonic diverticulosis without diverticulitis.Small fat containing inguinal hernias. IMPRESSION: 1. Degenerative arthrosis of the right hip. Full-thickness grade 4acetabular articular cartilage loss. High-grade femoral head cartilagewear (grade 3). Labral degeneration with degenerative tearing. 2. No fracture or AVN. 3. Tendinosis of the right common hamstring tendon with chronic partialtearing. 4. Chronic complete tear of the left common hamstring tendon. 5. Degenerative changes of the spine with transitional lumbosacralsegment. Degenerative changes of the sacroiliac joints. Dictated by Ramírez Ramirez MD @ 06/12/2024 9:26:47 AM (Electronically Signed) Luis Eduardo Watts MD MR * ANTI HIV 1/2 [90921.0] (05/05/2024 12:10 PM CDT) HIV-1/HIV-2 SCREEN Non-Reacti ve Non-Reacti ve 05/06/2024 1:45 AM CDT [facility] Comment:HIV-1 p24 and HIV-1/ HIV-2 Ab Not Detected. Blood BLOOD SPECIMEN / Unknown Venipuncture / Unknown 05/05/2024 12:10 PM CDT 05/05/2024 12:11 PM CDT Caryl Shi DO [facility] [address] [address] * (ABNORMAL) HEMOGLOBIN A1C MONITORING (POCT) (05/05/2024 12:10 PM CDT) [facility] HEMOGLOBIN A1C MONITORING (POCT) 7.0(H) <=6.4 % 05/05/2024 12:26 PM CDT [facility] Blood BLOOD SPECIMEN / Unknown Venipuncture / Unknown 05/05/2024 12:10 PM CDT 05/05/2024 12:11 PM CDT Narrative [facility] - 05/05/2024 12:26 PM CDT ? (<=6.9%) [...] Anemias, Splenectomy ? Caryl Shi DO CHEMISTRY [facility] [address] [place] [address], * PSA TOTAL SCREEN [g0103.0] (05/05/2024 12:10 PM CDT) [facility] PSA TOTAL (SCREEN) 0.06 <4.00 ng/mL 05/06/2024 1:09 AM CDT [facility] Blood BLOOD SPECIMEN / Unknown Venipuncture / Unknown 05/05/2024 12:10 PM CDT 05/05/2024 12:11 PM CDT Narrative [facility] - 05/06/2024 1:09 AM CDT The test method changed on 03/20/2023. If this test has been used for serial monitoring, rebaselining is recommended. Rebaselining consists of 2 measurements, collected 3-6 weeks apart. The Nick Elecsys total PSA assay is an electrochemiluminescence immunoassay ECLIA performed on the Nick Ismael e immunoassay analyzers. Values obtained with different assay methods may be different and cannot be used interchangeably. Caryl Shi DO LABORATORY [facility]AL [facility]AT[facility] [address] [place] [address], * SCAN-LABORATORY REPORT (05/03/2024 12:00 AM CDT) [...] the brain. Comparison CT brain 02/01/2024. FINDINGS: Zjui-cw-pleuxcfg diffuse cerebral volume loss. No mass effect [...] IMPRESSION 1. No acute intracranial abnormality. 2. Qvrb-pv-baqsoffm diffuse cerebral volume loss. 3. Minimal chronic [...] the brain. Comparison CT brain 02/01/2024. FINDINGS: Ejzj-cx-ukczmwwr diffuse cerebral volume loss. No mass effect [...] IMPRESSION 1. No acute intracranial abnormality. 2. Yeac-tu-fhaydsfu diffuse cerebral volume loss. 3. Minimal chronic microvascular ischemic changes. Dictated by Saúl Conner MD @ 03/31/2024 12:20:51 PM (Electronically Signed) Girma Palacio MD MR * US ABD AORTA SCREENING [[id number]] (08/27/2023 2:10 PM TEACHER PRIVATE) Anatomical Region Laterality Modality Abdomen, AORTA Ultrasound 08/27/2023 2:16 PM TEACHER PRIVATE Narrative 08/27/2023 2:16 PM TEACHER PRIVATE For Patients: ??As a result of the [...] Dictated by Que Barger MD @ Aug ??2022 ??2:16PM (Electronically Signed) ?? Procedure Note Que [...] REFLEX MEASURED LDL (07/26/2023 2:25 PM CDT) CHOLESTEROL,TOTAL 146 100 - 199 mg/dL 07/26/2023 10:45 PM CDT [facility] Comment: Cholesterol, Total Reference Ranges Desirable <200 mg/dL Borderline 200-239 mg/dL High >=240 mg/dL TRIGLYCERIDES 436(H) <150 mg/dL 07/26/2023 10:45 PM CDT [facility] HDL CHOLESTEROL 32(L) >40 mg/dL 3 10:45 PM CDT [facility] NON-HDL CHOLESTEROL 114 <145 mg/dl 07/26/2023 10:45 PM CDT [facility] [facility] CHOL/HDL RATIO 4.56(H) <4.50 07/26/2023 10:45 PM CDT [facility] LDL CHOLESTEROL 10:45 PM CDT [facility] Comment:Invalid LDL when Tri g >400. VLDL CHOLESTEROL COMMENT 07/26/2023 10:45 PM CDT [facility] Comment:Unable to calculate VLDL. PROVIDER ORDERED STATUS FASTING 07/26/2023 10:45 PM CDT [facility] Blood BLOOD SPECIMEN / Unknown Venipuncture / Unknown 07/26/2023 2:25 PM CDT 07/26/2023 2:25 PM CDT Catia Swift MD [facility] [address] [place] [address], from Last 3 Months or Most Recently Relevant to Health Maintenance Care Teams Time Piece Repairer Relationship Specialty Start Date End Date Caryl [place] [address] [place] [address] PCP - General Family Practice 07/23/23 Sarahi Roche RN [address] [place] [address] Wash House Supervisor 06/01/23
--- OUTSIDE RECORDS SUMMARY | 2024-06-27 13:46 | XMS_ITS | Encounter Summary ---
Author Organization [place] Address [address] [place] [address]. [place] [address] Care Team Providers Care Therapeutic Mentor Name Role Phone Maya Goyal MD Primary Care Provider [phone] Eva Mckenna RN Unavailable [phone] Maya Goyal MD Unavailable Maya Goyal MD Unavailable Mehdi Sen MD Unavailable [phone] Erlin Delcid MD Unavailable Elicia Bedoya [facility] Unavailable [phone] Kae Whipple [facility] Unavailable [phone] Mehdi Bass DPM Unavailable [phone] Kae Whipple [facility] Unavailable [phone] Maya Goyal MD Unavailable No Ref-Primary, Physician Primary Care Provider Mehdi Bass DPM Unavailable [phone] [facility] Unavailable Encounter Details Date Type Department Care Team (Late st Contact Info) Description 08/29/2010 [facility] [address] [place] [address] Maya Goyal MD [address] [place] [address] BENIGN HYPERTENSION (Primary Dx) Social History Tobacco Use Types Packs/Day Years Used Date Smoking Tobacco: Every Day Cigarettes 0.5 20 Alcohol Use Standard Drinks/Week Comments Yes 0 (1 standard drink = 0.6 oz pur e alcohol) Social once every 3 months Sex and Gender Information Value Date Recorded Sex Assigned at Male 09/17/2018 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 Gender Identity Male 09/17/2018 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 Sexual Orientation Straight 09/17/2018 5: 00 PM WASHING MACHINE INSTALLER documented as of this encounter Plan of Treatment Not on file documented as of this encounter Visit Diagnoses Diagnosis BENIGN HYPERTENSION- Primary Essential hypertension, benign documented in this encounter Additional Health Concerns Infection Onset Date Last Indicated Resolved Time COVID-19 08/27/2020 08/27/2020 09/17/2020 11:4 0 PM WASHING MACHINE INSTALLER documented as of this encounter Care Teams Therapeutic Mentor Relationship Specialty Start Date End Date Maya Goyal MD [address] [place] [address] PCP - General 05/03/04 11/14/22 Maya Goyal MD [address] [place] [address] PCP - Assigned PCP 10/22/09 11/26/18 No Ref-Primary, Physician PCP - General 11/15/22 Eva Mckenna RN [facility] Primary [facility] - CC 02/19/18 Maya Goyal MD [address] [place] [address] Assigned PCP 06/27/12 10/17/23 Mehdi Sen MD [address] [place] [address] Assigned Musculoskeletal Provider 07/16/20 12/18/20 Erlni Delcid MD [address] [address] Assigned Surgical Provider 09/12/20 Elicia Bedoya, [facility] [address] [place] [address] [address] [place] [address] Pharmacist Pharmacist 11/09/20 12/06/20 Kae Whipple [facility] [address] [place] [address] Pharmacist Pharmacist 11/30/20 12/06/20 Mehdi Bass DPM [facility] [address] [address] Assigned Musculoskeletal Provider 08/14/21 10/27/22 Kae Whipple [facility] [address] [place] [address] Assigned MTM Pharmacist 03/18/22 Maya Goyal MD [address] [place] [address] Assigned Pain Medication Provider 10/02/22 03/23/23 Mehdi Bass DPM [facility] [address] [place] [address] Assigned Surgical Provider 10/28/22 [facility] [address] [place] [address] Assigned PCP 10/18/23 documented as of this encounter
--- OUTSIDE RECORDS SUMMARY | 2024-06-27 13:46 | XMS_ITS | Encounter Summary ---
Author Organization [place] Address [address] [place] [address]. [place] [address] Care Team Providers Care Automatic Clipper Name Role Phone Maya Goyal MD Primary Care Provider [phone] Eva Mckenna RN Unavailable [phone] Maya Goyal MD Unavailable Maya Goyal MD Unavailable Mehdi Sen MD Unavailable [phone] Erlin Delcid MD Unavailable Elicia Bedoya [facility] Unavailable [phone] Kae Whipple [facility] Unavailable [phone] Mehdi Bass DPM Unavailable [phone] Kae Whipple [facility] Unavailable [phone] Maya Goyal MD Unavailable No Ref-Primary, Physician Primary Care Provider Mehdi Bass DPM Unavailable [phone] [facility] Unavailable Encounter Details Date Type Department Care Team (Late st Contact Info) Description 12/13/2010 [facility] [address] [place] [address] Maya Goyal MD [address] [place] [id number] Social History Tobacco Use Types Packs/Day Years Used Date Smoking Tobacco: Former Cigarettes 0.5 20 0 12/01/1990 - 12/01/2010 Smokeless Tobacco: Never Alcohol Use Standard Drinks/Week Comments Yes 0 (1 standard drink = 0.6 oz pur e alcohol) Social once every 3 months Sex and Gender Information Value Date Recorded Sex Assigned at Male 09/17/2018 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 Gender Identity Male 09/17/2018 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 Sexual Orientation Straight 09/17/2018 5: 00 PM 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 ATTENDANT documented as of this encounter Plan of Treatment Not on file documented as of this encounter Visit Diagnoses Not on filedocumented in this encounter Additional Health Concerns Infection Onset Date Last Indicated Resolved Time COVID-19 08/27/2020 08/27/2020 09/17/2020 11:4 0 PM 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 ATTENDANT documented as of this encounter Care Teams Automatic Clipper Relationship Specialty Start Date End Date Maya Goyal MD [address] [place] [address] PCP - General 05/03/04 11/14/22 Maya Goyal MD [address] [place] [address] PCP - Assigned PCP 10/22/09 11/26/18 No Ref-Primary, Physician PCP - General 11/15/22 Eva Mckenna RN Clinic Patient Relations Director Primary Care - CC 02/19/18 Maya Goyal MD [address] [place] [address] Assigned PCP 06/27/12 10/17/23 Mehdi Sen MD [address] [place] [address] Assigned Musculoskeletal Provider 07/16/20 12/18/20 Erlin Delcid MD [address] [address] Assigned Surgical Provider 09/12/20 Elicia Bedoya [facility] [address] [place] [address] [address] [place] [address] Pharmacist Pharmacist 11/09/20 12/06/20 Kae Whipple [facility] [address] [place] [address] Pharmacist Pharmacist 11/30/20 12/06/20 [place] [address] [employer] [address] [address] Assigned Musculoskeletal Provider 08/14/21 10/27/22 Kae Whipple [facility] [address] [place] [address] Assigned MTM Pharmacist 03/18/22 Maya Goyal MD [address] [place] [address] Assigned Pain Medication Provider 10/02/22 03/23/23 Mehdi Bass DPM [facility] [employer] [address] [address] Assigned Surgical Provider 10/28/22 [facility] [address] [place] [address] Assigned PCP 10/18/23 documented as of this encounter
--- OUTSIDE RECORDS SUMMARY | 2024-06-27 13:46 | XMS_ITS | Encounter Summary ---
Author Organization [place] Address [address] [place] [address]. [place] [address] Care Team Providers Care Mirror Inspector Name Role Phone Maya Goyal MD Primary Care Provider [phone] Primary Care Provider UnavailEva Brannon RN Unavailable [phone] Maya Goyal MD Unavailable Maya Goyal MD Unavailable Mehdi Sen MD Unavailable [phone] Erlin Delcid MD Unavailable [phone] Elicia Bedoya [facility] Unavailable [phone] Kae Whipple [facility] Unavailable [phone] Mehdi Bass DPM Unavailable [phone] Kae Whipple [facility] Unavailable [phone] Maya Goyal MD Unavailable No Ref-Primary, Physician Primary Care Provider Mehdi Bass DPM Unavailable [phone] [facility] Unavailable Encounter Details Date Type Department Care Team (Late st Contact Info) Description 01/25/2003 [place] [address] [place] [address] Maya Goyal MD [address] [facility] [address] [place] [address] ER ENCOUNTER (Primary Dx) Social History Tobacco [...] Sex Assigned at Male 09/17/2018 5:00 PM 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 SOCIAL HISTORY: [employer]. He is supposed to work tonight. He [...] re-evaluation. [id number] EDWARD DICKINSON MD [place]: Document: [id number] [place], [place] Name: CASSIE RIVAS EMERGENCY ROOM ENCOUNTER Page 2 of 2 LCN: JOHNNA DSC: [place], [place] Name: MR#: : Admit Date: CASSIE RIVAS [id number] 01/25/2003 Doctor: EDWARD DICKINSON MD EMERGENCY ROOM ENCOUNTER Page 1 of 2 Electronically filed by Cameron Murry 02/03/2003 11:27 AM documented in this encounter Plan of Treatment Not on file documented as of this encounter Visit Diagnoses Diagnosis ER ENCOUNTER- Primary documented in this encounter Additional Health Concerns Infection Onset Date Last Indicated Resolved Time COVID-19 08/27/2020 08/27/2020 09/17/2020 11:4 0 PM INSURANCE VERIFICATION REPRESENTATIVE documented as of this encounter Care Teams Mirror Inspector Relationship Specialty Start Date End Date Maya Goyal MD [address] [place] [address] PCP - General 05/03/04 11/14/22 None PCP - General 12/01/02 05/02/04 Maya Goyal MD [address] [place] [address] PCP - Assigned PCP 10/22/09 11/26/18 No Ref-Primary, Physician PCP - General 11/15/22 Eva Mckenna RN Clinic Hosp[facility] Executive Director Primary Care - CC 02/19/18 Maya Goyal MD [address] [place] [address] Assigned PCP 06/27/12 10/17/23 Mehdi Sen MD [address] [place], [place] 50[address] Assigned Musculoskeletal Provider 07/16/20 12/18/20 Erlin Delcid MD [address] [address] Assigned Surgical Provider 09/12/20 Elicia Bedoya [facility] [address] [place] [address] 812 [place] [address] Pharmacist Pharmacist 11/09/20 12/06/20 Kae Whipple [facility] [address] [place] [address] Pharmacist Pharmacist 11/30/20 12/06/20 Mehdi Bass DPM [id number] [place] [address] [address] [place] [address] Assigned Musculoskeletal Provider 08/14/21 10/27/22 Kae Whipple [facility] [address] [place] [address] Assigned MTM Pharmacist 03/18/22 Maya Goyal MD [address] [place] [address] [address] [place] [address] Assigned Pain Medication Provider 10/02/22 03/23/23 Mehdi Bass DPM [id number] [place] [address] [place] [address] Assigned Surgical Provider 10/28/22 [facility] [address] [place] [address] Assigned PCP 10/18/23 documented as of this encounter
--- OUTSIDE RECORDS SUMMARY | 2024-06-27 13:47 | XMS_ITS | Patient Health Record ---
Author Organization [facility] Address [address] [place] [address] [address] [place] [address] Care Team Providers Care Appeals And Generalist Clerk Name Role Phone Caryl Shi Primary Care Provider UnavailKarlo Wilkins Unavailable [phone] Catia Swift MD Unavailable Unavailable Collin Tafoya Unavailable [phone] Kash Valdez Unavailable [phone] Michael Suárez Unavailable [phone] Allergies No Known Allergies Results Component Value Reference Range Notes Urine toxicology Reviewed date:09/27/2023 11:33:39 AM Interpretation:See results Performing Lab: Notes/Report: See results OPI 300 0 Reason For Referral No Information Medications Medication SIG (Take, Route, Frequency, Duration) Notes Start Date End Date Status Furosemide 20 MG Oral for 90 Days Active Spironolactone 50 MG Oral for 30 Days Active oxyCODONE HCl 5 MG 1 tablet as needed Orally every 8-12 hours (max #3/day, ok to fill 04/10/2024) for 30 days Low back pain, unspecified M54.50, G89.29 PRINTED Active amLODIPine Besylate 5 MG Oral for 90 Days Active Methocarbamol 750 MG 1 tablet Orally(muscle relaxant for daytime use, Do not take with Tizanidine- only take 1 tablet at a time) Twice a day for 30 days Active Carvedilol 25 MG Oral for 90 Days Active Meloxicam 7.5 MG 1 tablet Orally Once a day for 30 days Active Lantus SoloStar 100 UNIT/ML Subcutaneous for 17 Days Active tiZANidine HCl 4 MG 1 tablet as needed Orally once a day at bedtime for 30 days Active UltiCare Short Pen [place] 31G X 8 MM DIRECTED for 30 Days Active DULoxetine HCl 60 MG Oral for 30 Days Active Finasteride 5 MG TAKE ONE TABLET BY MOUTH ONCE DAILY Oral for 30 Days Active traZODone HCl 100 MG Oral for 90 Days Active Tamsulosin HCl 0.4 MG Oral for 90 Days Active Social History Tobacco Use: Social History [...] W/U Status Risk Notes Problem Opioid dependence (86849526) Opioid dependence, uncomplicated (F11.20) Active confirmed Problem Chronic pain (38919090) Other chronic pain (G89.29) Active confirmed Problem Primary osteoarthritis (056242228) Unilateral primary osteoarthritis, right knee (M17.11) Active confirmed Problem Osteoarthritis of knee (283796980) Unilateral primary osteoarthritis, left knee (M17.12) Active confirmed Problem Acquired spondylolisthesis (907547354) Spondylolysis, lumbosacral region (M43.07) Active confirmed Problem Lumbosacral radiculopathy (3256953) Radiculopathy, lumbosacral region (M54.17) Active confirmed Problem Low back pain (019070152) Low back pain, unspecified (M54.50) Active confirmed Vital Signs Blood pressure diastolic 84 mm Hg 04/08/2024 Height 74 in 04/08/2024 Blood pressure systolic 132 mm Hg 04/08/2024 Weight 337 lbs 04/08/2024 BMI 43.26 kg/m2 04/08/2024 Encounters Encounter Location Date Provider Diagnosis [address] [facility] [address] [place] [address] 06/28/2023 Kash Valdez Other chronic pain G89.29 ; Radiculopathy, lumbosacral region M54.17 ; Cervicalgia M54.2 and Spondylolysis, lumbosacral region M43.07 BV [address] [facility] [address] [place] [address] 07/26/2023 Kash Valdez Other chronic pain G89.29 ; Radiculopathy, lumbosacral region M54.17 ; Cervicalgia M54.2 and Spondylolysis, lumbosacral region M43.07 BV [address] [facility] [address] [address] 08/30/2023 Kash Valdez Other chronic pain G89.29 ; Radiculopathy, lumbosacral region M54.17 ; Cervicalgia M54.2 and Spondylolysis, lumbosacral region M43.07 BV [address] [facility] [address] [place] [address] [address] 09/06/2023 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 and Opioid dependence, uncomplicated F11.20 BV [address] [facility] [address] [place], [place] [address] [address] 10/04/2023 Kash Valdez Spondylolysis, lumbosacral region M43.07 ; Radiculopathy, lumbosacral region M54.17 ; Cervicalgia M54.2 and Other chronic pain G89.29 BV [address] [facility] [address] [place], [place] [address] [address] [address] 11/08/2023 Kash Valdez Spondylolysis, lumbosacral region M43.07 ; Radiculopathy, lumbosacral region M54.17 ; Cervicalgia M54.2 and Other chronic pain G89.29 BV [address] [facility] [address] [place] [address] 12/04/2023 Michael Suárez Other chronic pain G89.29 ; Low back pain, unspecified M54.50 ; Opioid dependence, uncomplicated F11.20 ; nursing home (current) use of opiate analgesic Z79.891 and Encounter for screening for other disorder Z13.89 BV [address] [facility] [address] [place] [address] [address] 01/03/2024 Michael Jose Armando Other chronic pain G89.29 and Low back pain, unspecified M54.50 BV [address] [facility] [address] [place] [address] [address] 02/07/2024 Kash Valdez Other chronic pain G89.29 and Low back pain, unspecified M54.50 BV [address] [facility] [address] [place] [address] 03/11/2024 Michael Jose Armando Other chronic pain G89.29 and Low back pain, unspecified M54.50 BV [address] [facility] [address] [place] [address] 04/08/2024 Michael Jose Armando Other chronic pain G89.29 and Low back pain, unspecified M54.50 [facility] [address] [place] [address] [address] [place] [address] 07/19/2023 Karlo Ortiz Other chronic pain G89.29 [facility] [address] [place] [address] [address] [place] [address] 08/01/2023 Karlo Ortiz Other chronic pain G89.29 [facility] [address] [place] [address] [address] [place] [address] 08/07/2023 Collin Tafoya Other chronic pain G89.29 [facility] [address] [place] [address] [address] [place] [address] 08/23/2023 Karlo Ortiz [facility] [address] [facility] [address] [facility] [address] [place] [address] 08/30/2023 Kash Valdez [facility] [address] [facility] [address] [facility] [address] [place] [address] 01/03/2024 Michael Suárez [facility] [address] [place] [address] [address] [place] [address] 04/23/2024 Karlo Ortiz [facility] [address] [place] [address] [address] [place] [address] 05/02/2024 Michael Suárez Other chronic pain G89.29 [facility] [address] [place] [address] [address] [place] [address] 06/17/2024 Michael Suárez Other chronic pain G89.29 Assessments Encounter Date Diagnosis (ICD Code) Assessment Notes Treatment Notes Treatment Clinical Notes 06/28/2023 Other chronic pain (ICD-10 - G89.29) Rafa returns to clinic today for a follow-up evaluation regarding his chronic low back, neck, and bilateral knee pain. I have reviewed the [facility] database and did not find [...] Since he has been seen by the [facility] and this dizziness [...] with any questions, problems or concerns. 07/26/2023 Other chronic pain (ICD-10 - G89.29) Rafa returns to clinic today for a follow-up evaluation regarding his chronic low back, neck, and bilateral knee pain. I have reviewed the [place] [facility] database and did not find any inconsistencies. [...] 07/19/2023 Other chronic pain (ICD-10 - G89.29) 08/30/2023 Other chronic pain (ICD-10 - G89.29) Rafa returns to clinic today for a follow-up evaluation regarding his chronic low back, neck, and bilateral knee pain. I have reviewed the [facility] database and did not find [...] 08/07/2023 Other chronic pain (ICD-10 - G89.29) 10/04/2023 Spondylolysis, lumbosacral region (ICD-10 - M43.07) 11/08/2023 Spondylolysis, lumbosacral region (ICD-10 - M43.07) 09/06/2023 nursing home (current) use of opiate analgesic (ICD-10 - Z79.891) 12/04/2023 Other chronic pain (ICD-10 - G89.29) Rafa returns to clinic today for a follow-up evaluation regarding his acute on chronic pain. I have reviewed the [facility] database and did not find [...] his chronic pain. I have reviewed the [facility] database and did not find [...] his chronic pain. I have reviewed the [facility] database and did not find [...] his chronic pain. I have reviewed the [facility] database and did not find [...] 05/02/2024 Other chronic pain (ICD-10 - G89.29) 06/17/2024 Other chronic pain (ICD-10 - G89.29) 12/04/2023 Low back pain, unspecified (ICD-10 - M54.50) 01/03/2024 Other chronic pain (ICD-10 - G89.29) Rafa returns to clinic today for a follow-up evaluation regarding his acute on chronic pain. I have reviewed the [facility] database and did not find [...] call with any questions, problems or concerns. 01/03/2024 Low back pain, unspecified (ICD-10 - M54.50) 03/11/2024 Low back pain, unspecified (ICD-10 - M54.50) 11/08/2023 Radiculopathy, lumbosacral region (ICD-10 - M54.17) 10/04/2023 Radiculopathy, lumbosacral region (ICD-10 - M54.17) 10/04/2023 Cervicalgia (ICD-10 - M54.2) 09/06/2023 Opioid dependence, uncomplicated (ICD-10 - F11.20) 08/30/2023 Radiculopathy, lumbosacral region (ICD-10 - M54.17) 07/26/2023 Radiculopathy, lumbosacral region (ICD-10 - M54.17) 06/28/2023 Radiculopathy, lumbosacral region (ICD-10 - M54.17) 06/28/2023 Cervicalgia (ICD-10 - M54.2) 07/26/2023 Cervicalgia (ICD-10 - M54.2) 08/30/2023 Cervicalgia (ICD-10 - M54.2) 10/04/2023 Other chronic pain (ICD-10 - G89.29) Rafa Calabrese) returns to clinic today for a follow up evaluation regarding his chronic pain. I have reviewed the [place] [facility] database and did not find any inconsistencies. [...] with any questions, problems or concerns. 11/08/2023 Cervicalgia (ICD-10 - M54.2) 12/04/2023 Opioid dependence, uncomplicated (ICD-10 - F11.20) 11/08/2023 Other chronic pain (ICD-10 - G89.29) Rafa returns to clinic today for a follow up evaluation regarding his acute on chronic pain. I have reviewed the [facility] database and did not find [...] call with any questions, problems or concerns. 08/30/2023 Spondylolysis, lumbosacral region (ICD-10 - M43.07) 07/26/2023 Spondylolysis, lumbosacral region (ICD-10 - M43.07) 06/28/2023 Spondylolysis, lumbosacral region (ICD-10 - M43.07) 12/04/2023 nursing home (current) use of opiate analgesic (ICD-10 - [...] benzodiazepines and other drugs (prescribed or not). 10/04/2023 Other Tommy Hoover , am serving as a scribe to document services personally performed by Kash Valdez PA-C, based upon my observations and the provider's statements to me. All documentation has been reviewed by the aforementioned PAYeyo. IKash PA-C, attest that the above named individual is acting in scribe capacity, has observed my performance of the services and has documented them in accordance with my direction. The documentation recorded by the scribe accurately reflects the service I personally performed and the decisions made during the clinic visit. 06/28/2023 Mary Latif, am serving as a scribe to [...] performed and the decisions made by them. 11/08/2023 Other I, Tommynick Vides , am serving as a scribe [...] performed and the decisions made by her. 07/26/2023 Other I, Ann yee, am serving as [...] performed and the decisions made by her. 01/03/2024 Other I, Erlin Mariscal , am serving as a scribe to document services personally performed by Michael Suárez CNP, based upon my observations and the provider's statements to me. All documentation has been reviewed by the aforementioned DENISE as well as Bakari Stringer MD, prior [...] performed and the decisions made by them. 08/30/2023 Other I, Ann Hawksugar yee, am serving as a scribe to [...] documentation has been reviewed by the aforementioned SOLAR FIELD SERVICE TECHNICIAN as well as Karlo Ortiz MD, prior [...] documentation has been reviewed by the aforementioned SOLAR FIELD SERVICE TECHNICIAN as well as Karlo Ortiz MD, prior [...] documentation has been reviewed by the aforementioned SOLAR FIELD SERVICE TECHNICIAN as well as Karlo Ortiz MD, prior [...] performed and the decisions made by them. 06/17/2024 Other I, Tommy Vides , am serving as a scribe to document services personally performed by Michael Suárez CNP, based upon my observations and the provider's statements to me. All documentation has been reviewed by the aforementioned SOLAR FIELD SERVICE TECHNICIAN as well as Karlo Ortiz MD, prior [...] decisions made by them. Plan Of Treatment Next Appt Details Provider Name:Michael Suárez , 07/07/2024 11:45:00 AM, [address], [address], [place], [address], Insurance Providers Payer Name Payer Address Payer Phone Subscriber Number Group Number Insured Name Patient Relationship to Insured Coverage Start Date Coverage End Date [facility] [address] [address] [place] [address] [phone] [id number] Rafa Hickey Self - patient is the insured Medical (General) History Medical History History ICD Code Acid reflux Anxiety Arthritis Depression Diabetes Hypertension Hyperlipidemia BPH (Benign prostatic hypertrophy) PAD (Peripheral artery disease) ADD (Attention deficit disorder) CKD (Chronic kidney disease) stage 1 Surgical History Surgery Date(Month/Year) Left hamstring reattachment 11/07/2019 Right knee meniscus cartilage x2 2015, 2 018 Hospitalization History Reason Date(Month/Year) See surgical history
--- OUTSIDE RECORDS SUMMARY | 2024-06-27 13:47 | XMS_ITS | Data Portability ---
Author Organization [facility], [facility] Address [address] [place] [address] Care Team Providers Care Communications Associate Name Role Phone AMANDEEP [place] Primary Care Provider Assessment Encounter Date Assessment Date Assessment LastModified [...] Orders tamsulosin 0.4 mg capsule 2022 023 [facility] [address], [address], [place], [address], 10:23:19 finasteride 5 mg tablet 2022 023 [facility] [address], [address], [place], [address], 3 10:23:19 finasteride 5 mg tablet 2022 023 [facility] [address], [address], [place], [address], 3 15:52:06 tamsulosin 0.4 mg capsule 2022 023 [facility] [address], [address], [place], [address], 3 15:52:06 Patient TargetsNo targets recorded. Patient InstructionsNo instructions recorded. Reason for Referral None Reported. Results Created Date Observation Date Name Description Value Unit Range Abnormal Flag Note LastModifiedBy Organization Detail LastModifiedTime 06/02/20 22 05/31/2022 bladd er scan (PROC ) No observ ation record ed. Not Available 2022 13:42:21 01/03/20 23 12/27/2022 bladd er scan (PROC ) No observ ation record ed. BARCODE Not Available 2022 09:04:36 Result Notes None recorded. Procedures Surgical History Date Name Laterality Status Provider Name and Address Organization Details Recorded Time 3 Bladder Scan completed Asuncion Batres [facility] 12/27/2022 10:13:26 2 Bladder Scan completed Gris Dwyer [facility] 05/31/2022 11:23:55 9 colonoscopy completed Gris Dwyer [facility] 05/31/2022 11:23:05 Imaging Results Imaging Date Name Status LastModified by Organiz ation Details LastModified Time 05/31/2022 bladder scan (PROC) completed Information not available 12/27/2022 13:42:21 12/27/2022 bladder [...] Updated DateTime 05/31/2022 187.96 cm 41.2 kg/m2 688966.15 cinthia Dwyer [facility] 05/31/2022 11:22:11 Date Recorded Body height Body mass index (BMI) Body weight Provider Name and Address Organization Details Last Updated DateTime 12/27/2022 187.96 cm 41.2 kg/m2 037015.15 cinthia Batres [facility] 12/27/2022 10:15:31 Date Recorded Body height Body mass index (BMI) Body weight Provider Name and Address Organization Details Last Updated DateTime 05/30/2023 187.96 cm 41.2 kg/m2 931284.15 cinthia Dhaval Cruz MD [address] [place] [address],[address], [address] 05/30/2023 15:20:19 Social History Question Answer Notes LastModified by Organizat ion Details LastModified Time Tobacco Smoking Status [facility] 05/31/2022 11:22:52 What Is Your Level [...] Age of this Age Resolved Age Notes LastModified by Organization Details LastModified Time Sister Family history of breast cancer [email or web address] Not available 2021 11:22:34 Maternal Grandmother Malignant tumor of ovary [email or web address] Not available 2021 11:22:43 Medical History Condition Response High Blood Pressure Y Diabetes Y High Cholesterol Y Immunizations Vaccine Type Date Status Provider Name and Address Organization Details Recorded Time Tdap 06/24/2010 completed Dhaval Cruz MD [address] [place] [address],[address], [place], [address], [facility] 05/30/2023 15:20:28 Tdap 07/19/2016 completed Dhaval Cruz MD [address] [place] [address],[address], [place], [address], [facility] 05/30/2023 15:20:28 Hep A-Hep B 12/28/2010 completed Dhaval Cruz MD [address] [place] [address],[address], [place], [address], [facility] 05/30/2023 15:20:28 Hep A-Hep B 06/24/2010 completed Dhaval Cruz MD [address] [place] [address],[address] [place] [address], [address], [facility] 05/30/2023 15:20:28 Hep A-Hep B 07/25/2010 completed Dhaval Cruz MD [address] [place] [address],[address], [address], [facility] 05/30/2023 15:20:28 zoster recombinant 10/23/2022 completed Oumou pepe [facility] 07/25/2023 13:14:35 zoster recombinant 12/25/2022 completed Oumou pepe [facility] 07/25/2023 13:14:35 Past Encounters Encounter ID Performer Location Encounter Start Date Encounter Closed Date Diagnosis/Indication Diagnosis SNOMED-CT Code Diagnosis ICD10 Code [id number] MD TANNER Rao_Maria Eugenia [address] [place] [address] 05/31/2022 11:07:00 06/05/2022 15:44:25 Increased frequency of urination 518103996 R35.0 Nocturia 928051574 R35.1 Urgent cheyanne carlyle to urinate 96155624 R39.15 [id number] MD TANNER Rao_Maria Eugenia [address] [place] [address] 12/27/2022 10:02:20 12/29/2022 11:02:58 Increased frequency of urination 484446271 R35.0 Nocturia 429918839 R35.1 Urgent cheyanne carlyle to urinate 09310385 R39.15 [id number] Dhaval Cruz MD [facility] [address] [place] [address] 03/29/2023 12:04:24 04/04/2023 09:06:12 [id number] Marisol Donaldson [facility] [address] [place] [address] 04/05/2023 09:56:42 04/13/2023 07:37:49 [id number] Dhaval Cruz MD [facility] [address] [place], [place] [address] 05/30/2023 15:13:21 06/05/2023 12:26:38 Increased frequency of urination 399153560 R35.0 Nocturia 000710619 R35.1 Urgent cheyanne carlyle to urinate 04742216 R39.15 Health Concerns Section Related Observation LastModified by Organization Detai ls LastModified Time None Recorded Concern Status LastModified by Organization Details LastModified Time None Recorded Advance Directives Directive None Recorded Payers Encounter Date Sequence Insurance Name Policy Number Policy Dobson Covered Member ID Dobson Member ID Guarantor Name 05/31/2022 1 [employer] (MEDICARE REPLACEMENT/A DVANTAGE - PPO) Rafa Hickey [id number] Rafa Ruggieroo 12/27/2022 1 [employer] (MEDICARE REPLACEMENT/A DVANTAGE - PPO) Rafa Hickey [id number] Rafa Ruggieroo 03/29/2023 1 [employer] (MEDICARE REPLACEMENT/A DVANTAGE - PPO) Rafa Hickey [id number] Rafa Ruggieroo 04/05/2023 1 [employer] (MEDICARE REPLACEMENT/A DVANTAGE - PPO) Rafa Hickey [id number] Rafa Ruggieroo 05/30/2023 1 [employer] (MEDICARE REPLACEMENT/A DVANTAGE - PPO) Rafa Hickey [id number] Rafa Hickey Notes Date Note Type Note [...] provides some history. Dhaval Cruz MD [address] [facility],[address], [place], [address], [facility] 05/31/2022 13:15:14 12/27/2022 text/html HPI Notes: [...] he self-discontinued his medications. Dhaval Cruz MD [address] [facility],[address], [place], [address], [facility] 12/27/2022 13:46:55 05/30/2023 text/html HPI Notes: [...] some of the history. Dhaval Cruz MD [address] [facility],[address], [place], [address], [facility] 05/30/2023 15:53:07
[2024-06-27 16:30] LABS: C Reactive Protein* < 0.5 mg/dL (0.5-1.0)
[2024-06-27 16:33] LABS: Basophils Absolute Auto 0.04 K/uL (0.00-0.30); Basophils Percent Auto 0.5 % (0.0-3.0); Eosinophils Absolute Auto 0.05 K/uL (0.00-0.50); Eosinophils Percent Auto 0.6 % (0.0-7.0); Hematocrit 41.3 % (37.0-53.0); Hemoglobin* 14.3 gm/dL (13.5-17.5); Immature Granulocytes Abs Auto 0.01 K/uL (0.00-0.30); Immature Granulocytes Pct Auto 0.1 %; Lymphocytes Absolute Auto 1.82 K/uL (0.90-2.90); Lymphocytes Percent Auto 22.6 % (20-44); Mean Corpuscular HGB Conc 35 gm/dL (32-36); Mean Corpuscular Hemoglobin 33 pg (26-34); Mean Corpuscular Volume 97 fL (80-100); Monocytes Percent Auto 8.9 % (0.0-11.0); Neutrophils Absolute Auto 5.42 K/uL (1.7-7.0); Neutrophils Percent Auto 67.3 % (42.0-72.0); Platelet Count* 219 K/uL (140-440); RDW Coefficient of Variation % 14.3 % (11.5-15.5); Red Blood Count 4.28 m/uL (4.30-5.90); White Blood Count* 8.06 K/uL (4.50-11.00)
[2024-06-27 16:49] LABS: Slide Review Reflex No
== END 2024-06-27 13:43 | disposition home or self-care (01) ==
LOC: WOUND 13:42
PROVIDERS: PCP Family Medicine; Visit Provider Nurse Practitioner Family
DX: E11.621 Type 2 diabetes mellitus with foot ulcer (principal); L97.512 Non-pressure chronic ulcer of other part of right foot with fat layer exposed; L97.522 Non-pressure chronic ulcer of other part of left foot with fat layer exposed; E11.22 Type 2 diabetes mellitus with diabetic chronic kidney disease; N18.32 Chronic kidney disease, stage 3b; Z79.4 Long term (current) use of insulin; Z79.84 Long term (current) use of oral hypoglycemic drugs
CPT/HCPCS: 36415; 85025; 86140; 97597; G0463

== ENCOUNTER 2024-07-03 14:20 | Outpatient (CLI) | payer OTHER, SELFPAY ==
--- OUTSIDE RECORDS SUMMARY | 2024-07-03 14:22 | XMS_ITS | Clinical Summary ---
Author Organization [facility] Address [address] [place] [address] Care Team Providers Care Garment Steamer Name Role Phone Shar Hoff MD Unavailable [phone] Doctor, No Primary Care Provider Unavailabl e [...] - 145 mMol/L 07/19/2016 5:16 AM CDT [facility] Potassium 4.0 3.5 - 5.1 mMol/L 07/19/2016 5:16 AM CDT [facility] Chloride 104 98 - 112 mMol/L 07/19/2016 5:16 AM CDT [facility] Carbon Dioxide 25 21 - 32 mMol/L 07/19/2016 5:16 AM T [facility] BUN (Urea Nitro) 17 7 - 24 mg/dL 07/19/2016 5:16 AM CDT [facility] Creatinine 0.83 0.70 - 1.30 mg/dL 07/19/2016 5:[address] [facility] Est GFR (CKD-EPI) >60 >60 mL/min 07/19/2016 5:[address] [facility] EST GFR IF AM >60 >60 mL/min 07/19/2016 5:[address] [facility] Glucose 99 74 - 106 mg/dL 07/19/2016 5:16 AM CDT [facility] Calcium, Serum 8.4(L) 8.5 - 10.1 mg/dL 07/19/2016 5:16 AM CDT [facility] Anion Gap 11.0 0.0 - 15.0 mMol/L 07/19/2016 5:[address] [facility] Blood 07/19/2016 4:45 AM CDT 07/19/2016 4:48 AM CDT Brigette Pena MD CHEMISTRY ORDERABLE [facility] [address] [place] [address] from Last 3 Months or Most Recently Relevant to Health Maintenance Advance Directives For more information, please contact: [phone] * Full Code (Latest Code Status on File) Date Activated Date Inactivated Comments 07/19/2016 6:14 AM 07/19/2016 4:02 PM Question Answer Comments How was code status determined? Patient Care Teams Garment Steamer Relationship Specialty Start Date End Date Doctor, No No ad PCP - General Radiology 01/01/23 Shar Hoff MD [address] [place] [address] [address] [place] [address] Neurology 01/01/23
--- OUTSIDE RECORDS SUMMARY | 2024-07-03 14:22 | XMS_ITS | Clinical Summary ---
Author Organization [facility] Address [address] [place] [address] Care Team Providers Care Stock Driver Name Role Phone No Ref-Primary, Physician Primary Care Provider [facility] Unavailable Allergies Active Allergy Reactions Criticality Noted [...] Total Score(s): No flowsheet data found. Last [facility] website verification: 09/19/19 [email or web address] CKD (chronic kidney disease) stage 1, GFR [...] Comments Circulatory Father AAA Heart Disease Father [place] with sudden d eath, complicated AAA repair [...] Sex Assigned at Male 09/17/2018 5:00 PM MISSION PLANNER Gender Identity Male 09/17/2018 5:00 PM MISSION PLANNER Sexual Orientation Straight 09/17/2018 5: 00 PM MISSION PLANNER Last Filed Vital Signs Vital Sign Reading Time Taken Comments Blood Pressure 138/88 11/17/2021 2:13 PM MISSION PLANNER Pulse 99 11/17/2021 2:13 PM MISSION PLANNER Temperature 37.1 ??C (98.7 ??F) 11/17/2021 2:13 PM CS T Respiratory Rate 18 11/17/2021 2:13 PM MISSION PLANNER Oxygen Saturation 98% 11/17/2021 2:13 PM MISSION PLANNER Inhaled Oxygen Concentration - - Weight 154.7 kg (341 lb) 11/17/2021 2:13 PM MISSION PLANNER Height 188 cm (6' 2) 11/17/2021 2:13 PM MISSION PLANNER Body Mass Index 43.78 11/17/2021 2:13 PM MISSION PLANNER Plan of Treatment Health Maintenance Due Date [...] DRUG SCREEN CLINIC Routine 11/10/2021 10:09 AM MISSION PLANNER Chronic, continuous use of opioids ALBUMIN RANDOM URINE QUANTITATIVE Routine 11/10/2021 10:09 AM MISSION PLANNER Type 2 diabetes mellitus with stage 1 chronic kidney disease, without long-term current use of insulin (H) Benign essential hypertension BASIC METABOLIC PANEL Routine 11/10/2021 10:01 AM MISSION PLANNER Type 2 diabetes mellitus with stage 1 chronic kidney disease, without long-term current use of insulin (H) Benign essential hypertension HEMOGLOBIN A1C Routine 11/10/2021 10:01 AM MISSION PLANNER Type 2 diabetes mellitus with stage 1 chronic kidney disease, without long-term current use of insulin (H) EYE EXAM - HIM SCAN 05/20/2021 1 2:00 AM CDT LIPID REFLEX TO DIRECT LDL PANEL Routine 04/13/2021 4:09 PM CDT Hyperlipidemia LDL goal <100 COLONOSCOPY Routine 08/13/2019 10:[address] CHEST/ABDOMEN/PELVIS W CONTRAST STAT 02/18/2018 12:20 PM CDT HEPATITIS C SCREEN REFLEX TO HCV RNA QUANT AND GENOTYPE Routine 08/10/2017 11:22 AM MISSION PLANNER Encounter for routine adult health examination without abnormal findings FECAL COLORECTAL CANCER SCREEN FIT Routine 06/25/2013 11:31 AM CDT Screen for colon cancer UA MACROSCOPIC WITH REFLEX TO MICRO Routine 10/13/2010 4:49 PM MISSION PLANNER HTN (hypertension) from Last 3 Months or Most Recently Relevant to Health Maintenance Results * (ABNORMAL) Drug Abuse Screen Panel 13, Urine (Pain Care Package) - lab collect (11/10/2021 10:09 [facility]) Cannabinoids (80-ifi-0-carboxy -9-THC) Not Detected Not Detected, Indeterminate 11/10/2021 10:28 AM MISSION PLANNER [facility] LAB[facility] Comment:Cutoff for a negativ e cannabinoid is 50 ng/mL or less. Phencyclidine Not Detected Not Detected, Indeterminate 11/10/2021 10:28 AM MISSION PLANNER [facility] Comment:Cutoff for a negativ e PCP is 25 ng/mL or less. Cocaine (Benzoylecgonine) Not Detected Not Detected, Indeterminate 11/10/2021 10:28 AM MISSION PLANNER [facility] Comment:Cutoff for a negativ e cocaine is 150 ng/ml or less. Methamphetamine (d-Methamphetamin e) Not Detected Not Detected, Indeterminate 11/10/2021 10:28 AM MISSION PLANNER [facility] Comment:Cutoff for a negativ e methamphetamine is 500 ng/ml or less. Opiates (Morphine) Not Detected Not Detected, Indeterminate 11/10/2021 10:28 AM MISSION PLANNER [facility] Comment:Cutoff for a negativ e opiate is 100 ng/ml or less. Amphetamine (d-Amphetamine) Not Detected Not Detected, Indeterminate 11/10/2021 10:28 AM MISSION PLANNER [facility] Comment:Cutoff for a negativ e amphetamine is 500 ng/mL or less. Benzodiazepines (Nordiazepam) Not Detected Not Detected, Indeterminate 11/10/2021 10:28 AM MISSION PLANNER [facility] Comment:Cutoff for a negativ e benzodiazepine is 150 ng/ml or less. Tricyclic Antidepressants (Desipramine) Not Detected Not Detected, Indeterminate 11/10/2021 10:28 AM MISSION PLANNER [facility] Comment:Cutoff for a negativ e tricyclic antidepressant is 300 ng/ml or less. Methadone Not Detected Not Detected, Indeterminate 11/10/2021 10:28 AM MISSION PLANNER [facility] Comment:Cutoff for a negativ e methadone is 200 ng/ml or less. Barbiturates (Butalbital) Not Detected Not Detected, Indeterminate 11/10/2021 10:28 AM MISSION PLANNER [facility] Comment:Cutoff for a negativ e barbituate is 200 ng/ml or less. Oxycodone Detected(A ) Not Detected, Indeterminate 11/10/2021 10:28 AM MISSION PLANNER [facility] Comment: Cutoff for a positive oxycodone is greater than 100 ng/ml. This is an unconfirmed screening result to be used for medical purposes only. Propoxyphene (Norpropoxyphene) Not Detected Not Detected, Indeterminate 11/10/2021 10:28 AM MISSION PLANNER [facility] Comment:Cutoff for a negativ e propoxyphene is 300 ng/ml or less. Buprenorphine Not Detected Not Detected, Indeterminate 11/10/2021 10:28 AM MISSION PLANNER [facility] Comment:Cutoff for a negativ e buprenorphine is 10 ng/ml or less. Urine MID-STREAM URINE SPECIMEN / Unknown Non-blood Collection / Unknown 11/10/2021 10:09 AM MISSION PLANNER 11/10/2021 10:09 AM MISSION PLANNER Maya Goyal MD LAB - URINE ORDERABL ES [facility] [address], [address] [place] [address], [facility] [phone] * (ABNORMAL) Albumin Random Urine Quantitative with Creat Ratio (11/10/2021 10:09 AM MISSION PLANNER) Creatinine Urine mg/dL 74 mg/dL 11/11/2021 11:04 AM MISSION PLANNER [facility] Albumin Urine mg/L 14 mg/L 11/11/2021 11:04 AM MISSION PLANNER [facility] Albumin Urine mg/g Cr 18.92(H) 0.00 - 17.00 mg/g Cr 11/11/2021 11:04 AM MISSION PLANNER [facility] Urine MID-STREAM URINE SPECIMEN / Unknown Non-blood Collection / Unknown 11/10/2021 10:09 AM MISSION PLANNER 11/10/2021 10:09 AM MISSION PLANNER Maya Goyal MD LAB - URINE ORDERABL ES Performing Organization Address City/[facility]/ZIP Co de Phone Number OX LABORATORY [facility] [address] Lab (no room number, 1st floor of clinic) [place] [address], [facility] [phone] * (ABNORMAL) Hemoglobin A1c (11/10/2021 10:01 AM MISSION PLANNER) Hemoglobin A1C 6.6(H) 0.0 - 5.6 % 11/10/2021 10:26 AM MISSION PLANNER [facility] Comment: Normal <5.7% Prediabetes 5.7-6.4% ?? Diabetes 6.5% or higher Note: Adopted from ADA consensus guidelines. Blood BLOOD SPECIMEN / Unknown Venipuncture / Unknown 11/10/2021 10:01 AM MISSION PLANNER 11/10/2021 10:02 AM MISSION PLANNER Maya Goyal MD LAB - BLOOD ORDERABL ES RI LABORATORY [facility] [address], [address] [place] [address], [facility] [phone] * (ABNORMAL) Basic metabolic panel (Ca, Cl, CO2, Creat, Gluc, K, Na, BUN) (11/10/2021 10:01 AM MISSION PLANNER) Sodium 131(L) 133 - 144 mmol/L 11/11/2021 8:39 AM MISSION PLANNER [facility]ATORY Potassium 4.8 3.4 - 5.3 mmol/L 11/11/2021 8:39 AM MISSION PLANNER [facility] Chloride 96 94 - 109 mmol/L 11/11/2021 8:39 AM MISSION PLANNER [facility] Carbon Dioxide (CO2) 22 20 - 32 mmol/L 11/11/2021 8:39 AM MISSION PLANNER [facility] Anion Gap 13 3 - 14 mmol/L 11/11/2021 8:39 AM MISSION PLANNER [facility] Urea Nitrogen 11 7 - 30 mg/dL 11/11/2021 8:39 AM MISSION PLANNER [facility] Creatinine 0.92 0.66 - 1.25 mg/dL 11/11/2021 8:39 AM MISSION PLANNER [facility] Calcium 8.9 8.5 - 10.1 mg/dL 11/11/2021 8:39 AM MISSION PLANNER [facility] Glucose 135(H) 70 - 99 mg/dL 11/11/2021 8:39 AM MISSION PLANNER [facility] GFR Estimate >90 >60 mL/min/1.7 3m2 11/11/2021 8:39 AM MISSION PLANNER [facility] Comment:Effective August 252020 eGFRcr in adults is calculated using the 2020 CKD-EPI creatinine equation which includes age and gender (Donis et al., NEJM, DOI: 10.1056/BOITmq7476730) Blood BLOOD SPECIMEN / Unknown Venipuncture / Unknown 11/10/2021 10:01 AM MISSION PLANNER 11/10/2021 10:02 AM MISSION PLANNER Maya Goyal MD LAB - BLOOD ORDERABL ES [facility] [address] [place] [address] Lab (no room number, 1st floor of clinic) [place] [address], [facility] [phone] * EYE EXAM - HIM SCAN (05/20/2021 12:00 AM CDT) RETINOPATHY NEGATIVE 05/20/2021 Narrative Kya Riley K - 05/20/2021 12:00 AM CDT DIABETIC EYE EXAM [facility] Provider Outside OTHER * (ABNORMAL) Lipid [...] Goyal MD LAB - BLOOD ORDERABL ES [facility] [address] Lab (no room number, 1st floor of clinic) [place] [address], [facility] [phone] * COLONOSCOPY (08/13/2019 10:22 AM MISSION PLANNER) COLONOSCOPY [facility] Patient Name: Rafa Hickey ?Procedure Date: [...] # [id number], [place] ?# 221, SN # [id number] was introduced through the anus ?and advanced [...] history of colonic polyps CPT copyright 2018 [employer]. All rights reserved. The codes documented in this report are preliminary and upon meter repairer review may be revised to meet current compliance requirements. Electronically signed by Karlo Luis MD __ Karlo Luis MD 08/13/2019 10:51:03 AM I was physically present for the entire viewing portion of the exam. Karlo Luis MD Number of Addenda: 0 Note Initiated On: 08/13/2019 10:22 AM MRN: ?[id number] Procedure Date: ? 08/13/2019 10:22:02 AM Scope Withdrawal Time: 0 hours 6 minutes 13 seconds Total Procedure Duration: 0 hours 18 minutes 55 seconds Estimated Blood Loss: ? Scope In: 10:25:38 AM Scope Out: 10:44:33 AM RADIOLOGY RESULTS 08/13/2019 10:2 2 AM MISSION PLANNER Maya Goyal MD PROCEDURES RADIOLOGY RESULTS * [...] RNA Quant and Genotype (08/10/2017 11:22 AM MISSION PLANNER) Hepatitis C Antibody Nonreactive NR^Nonre active 08/13/2017 10:46 AM MISSION PLANNER [facility] Comment: Assay performance characteristics have not been established for newborns, infants, and children Blood specimen (specimen) 08/10/2017 11:22 AM MISSION PLANNER 08/10/2017 11:23 AM MISSION PLANNER Maya Goyal MD LAB - BLOOD ORDERABL ES [address] * Fecal colorectal cancer screen (FIT) (06/25/2013 11:31 AM CDT) Pathologist [facility] Occult Blood Scn FIT Negative NEG [facility] Stool specimen (specimen) 06/25/2013 11:31 AM CDT 06/25/2013 11:32 AM CDT Maya Goyal MD LAB - STOOLS ORDERAB LES [facility] * (ABNORMAL) UA macroscopic with reflex to micro (10/13/2010 4:49 PM MISSION PLANNER) Pathologist [facility] Color Urine Yellow [facility] Appearance Urine Clear [facility] Glucose Urine Negative NEG mg/dL [facility] Bilirubin Urine Negative NEG [facility] Ketones Urine Negative NEG mg/dL [facility] Specific [place] Urine 1.015 1.003 - 1.035 [facility] Blood Urine Moderate(A) NEG [facility] pH Urine 5.5 5.0 - 7.0 pH [facility] Protein Albumin Urine Negative NEG mg/dL [facility] Urobilinogen Urine 0.2 0.2 - 1.0 EU/dL [facility] Nitrite Urine Negative NEG [facility] Leukocyte Esterase Urine Negative NEG [facility] Source Midstream Urine [facility] Urine specimen (specimen) 10/13/2010 4:49 PM MISSION PLANNER 10/13/2010 4:54 PM MISSION PLANNER Maya Goyal MD LAB - URINE ORDERABL ES [facility] from Last 3 Months or Most Recently Relevant to Health Maintenance Rafa Hickey Personal/Family Self 1960 [phone] (Home) [address] [address] [id number] [employer] Worker's Compensation Employer [id number] (Home) [address] [place] [address] [id number] [employer] Worker's Compensation Employer [id number] (Home) [address] [place] [address] [id number] [employer] Worker's Compensation Employer [id number] (Home) [address] [place] [address] [id number] [employer] Worker's Compensation Employer [id number] 5 (Home) [address] [address] [id number] [employer] Worker's Compensation Employer 1960 NONE (Work) [address] [address] Rafa Hickey Medication Therapy Self 1960 [phone] (Home) [address] [place] [address] Advance Directives For more information, please contact: [phone] * Full Code (Latest Code Status on [...] 1:26 PM 09/12/2017 10:19 AM Care Teams Stock Driver Relationship Specialty Start Date End Date No Ref-Primary, Physician PCP - General 11/15/22 [facility] - [address] [address] Assigned PCP 10/18/23
--- OUTSIDE RECORDS SUMMARY | 2024-07-03 14:22 | XMS_ITS | Referral Summary ---
Author Organization [facility] Address [address] [place] [address] Care Team Providers Care Chief Safety Officer Name Role Phone Shar Hoff MD Unavailable [phone] Doctor, No Primary Care Provider Unavailabl e [...] - 145 mMol/L 07/19/2016 5:[address] [facility] Potassium 4.0 3.5 - 5.1 mMol/L 07/19/2016 5:16 AM [facility] Chloride 104 98 - 112 mMol/L 07/19/2016 5:16 AM [facility] Carbon Dioxide 25 21 - 32 mMol/L 07/19/2016 5:16 AM [facility] BUN (Urea Nitro) 17 7 - 24 mg/dL 07/19/2016 5:16 AM [facility] Creatinine 0.83 0.70 - 1.30 mg/dL 07/19/2016 5:16 AM [facility] Est GFR (CKD-EPI) >60 >60 mL/min 07/19/2016 5:16 AM [facility] EST GFR IF AM >60 >60 mL/min 07/19/2016 5:16 AM [facility] Glucose 99 74 - 106 mg/dL 07/19/2016 5:16 AM [facility] Calcium, Serum 8.4(L) 8.5 - 10.1 mg/dL 07/19/2016 5:16 AM [facility] Anion Gap 11.0 0.0 - 15.0 mMol/L 07/19/2016 5:16 AM [facility] Blood 07/19/2016 4:45 AM CDT 07/19/2016 4:48 AM CDT Brigette Pena MD CHEMISTRY ORDERABLE [facility] [address] [address] from Last 3 Months or Most Recently Relevant to Health Maintenance Advance Directives For more information, please contact: [phone] * Full Code (Latest Code Status on File) Date Activated Date Inactivated Comments 07/19/2016 6:14 AM 07/19/2016 4:02 PM Question Answer Comments How was code status determined? Patient Care Teams Chief Safety Officer Relationship Specialty Start Date End Date Doctor, No No ad PCP - General Radiology 01/01/23 Shar Hoff MD [address] [place] [address] [address] [place] [address] Neurology 01/01/23
--- OUTSIDE RECORDS SUMMARY | 2024-07-03 14:23 | XMS_ITS | Encounter Summary ---
Author Organization [facility] Address [address] [place] [address]. [place] [address] Care Team Providers Care Lifter Name Role Phone Maya Goyal MD Primary Care Provider Maya Goyal MD Unavailable Erlin Delcid MD Unavailable Mehdi Bass DPM Unavailable Kae Whipple [facility] Unavailable Maya Goyal MD Unavailable No Ref-Primary, Physician Primary Care Provider Mehdi Bass DPM Unavailable [facility] Unavailable Encounter Details Date Type Department Care Team (Late st Contact Info) Description 09/06/2021 [facility] Medical Advice [facility] [address] [place] [address] Eden Lei, CATALOG LIBRARY ASSISTANT Social History Tobacco Use Types Packs/Day Years [...] Sex Assigned at Male 09/17/2018 5:00 PM [employer]ELAND[employer] LABORER Gender Identity Male 09/17/2018 5:00 PM [employer]ORER Sexual Orientation Straight 09/17/2018 5: 00 PM [employer] LABORER COVID-19 Exposure Response Date Recorded In the last month, have you been in contact with someone who was confirmed or suspected to have Coronavirus / COVID-19? No / Unsure 08/17/2021 12:57 PM [employer] LABORER documented as of this encounter Plan of Treatment Not on file documented as of this encounter Visit Diagnoses Not on filedocumented in this encounter Additional Health Concerns Assessment Noted Time PHQ-9 Depression Total Score: 10 021 2:58 PM CDT documented as of this encounter Care Teams Lifter Relationship Specialty Start Date End Date Maya Goyal MD [address] [place] [address] PCP - General 05/03/04 11/14/22 No Ref-Primary, Physician PCP - General 11/15/22 Maya Goyal MD [address] [place] [address] Assigned PCP 06/27/12 10/17/23 Erlin Delcid MD [address] [facility] [address] [place] [address] Assigned Surgical Provider 09/12/20 Mehdi Bass DPM [id number] [facility] [address] [place], [place] [address] Assigned Musculoskeletal Provider 08/14/21 10/27/22 Kae Whipple [facility] [address] [place] [address] Assigned MTM Pharmacist 03/18/22 Maya Goyal MD [address] [facility] [address] [place] [address] Assigned Pain Medication Provider 10/02/22 03/23/23 Mehdi Bass DPM [id number] [facility] [address] [place] [address] Assigned Surgical Provider 10/28/22 [facility] [address] [place] [address] Assigned PCP 10/18/23 documented as of this encounter
--- OUTSIDE RECORDS SUMMARY | 2024-07-03 14:23 | XMS_ITS | Encounter Summary ---
Author Organization [facility] Address [address] [place] [address] Care Team Providers Care Field Hockey And Lacrosse Coach Name Role Phone Maya Goyal MD Primary Care Provider [phone] Maya Goyal MD Unavailable Mehdi Sen MD Unavailable [phone] Erlin Delcid MD Unavailable [phone] Elicia Bedoya [facility] Unavailable [phone] Kae Whipple [facility] Unavailable Mehdi Bass DPM Unavailable [phone] Kae Whipple [facility] Unavailable [phone] Maya Goyal MD Unavailable No Ref-Primary, Physician Primary Care Provider Mehdi Bass DPM Unavailable [phone] [facility] Unavailable Reason for Visit * Reason Onset Date Comments MyChart Communication 09/29/2020 Encounter Details Date Type Department Care Team (Late st Contact Info) Description 09/29/2020 [facility] [address] [place] [address] Maya Goyal MD [address] [place] [address] MyChart Communication Social History Tobacco Use Types [...] Assigned at Male 09/17/2018 5:00 PM MANAGER PORTABLE Gender Identity Male 09/17/2018 5:00 PM MANAGER PORTABLE Sexual Orientation Straight 09/17/2018 5: 00 PM MANAGER PORTABLE COVID-19 Exposure Response Date Recorded In the last month, have you been in contact with someone who was confirmed or suspected to have Coronavirus / COVID-19? Yes 09/07/2020 1:45 PM MANAGER PORTABLE documented as of this encounter Miscellaneous Notes * Telephone Encounter - Rukhsana Yo RN - 09/29/2020 12:06 PM CST My chart message sent by patient. My chart message sent to patient. GER PORTABLE * Telephone Encounter - Rukhsana Yo RN - 09/29/2020 11:34 AM CST My chart message sent by patient. My chart message sent to patient. GER PORTABLE documented in this encounter Plan of Treatment Not on file documented as of this encounter Visit Diagnoses Not on filedocumented in this encounter Additional Health Concerns Assessment Noted Time PHQ-9 Depression Total Score: 10 04/15/ 020 8:55 AM CDT documented as of this encounter Care Teams Field Hockey And Lacrosse Coach Relationship Specialty Start Date End Date Maya Goyal MD [address] [place] [address] PCP - General 05/03/04 11/14/22 No Ref-Primary, Physician PCP - General 11/15/22 Maya Goyal MD [address] [facility] [address] [place] [address] Assigned PCP 06/27/12 10/17/23 Mehdi Sen MD [address] [place], [place] [address] Assigned Musculoskeletal Provider 07/16/20 12/18/20 Erlin Delcid MD [address] [address] Assigned Surgical Provider 09/12/20 Elicia Bedoya [facility] [address] [place] [address] [address] [place], [place] [phone] Pharmacist Pharmacist 11/09/20 12/06/20 Kae Whipple [facility] [address] [place], [place] [address] Pharmacist Pharmacist 11/30/20 12/06/20 Mehdi Bass DPM [address] [facility] [address] [place], [place] [address] Assigned Musculoskeletal Provider 08/14/21 10/27/22 Kae Whipple [facility] [address] [place], [place] [address] Assigned MTM Pharmacist 03/18/22 Maya Goyal MD [address] [facility] [address] [place], [place] [address] Assigned Pain Medication Provider 10/02/22 03/23/23 Mehdi Bass D[place] [address] [facility] [address] [place] [address] Assigned Surgical Provider 10/28/[address] [address] Assigned PCP 10/18/23 documented as of this encounter
--- OUTSIDE RECORDS SUMMARY | 2024-07-03 14:23 | XMS_ITS | Encounter Summary ---
Author Organization [facility] Address [address] [place] [address] Care Team Providers Care Fund Raiser Name Role Phone Maya Goyal MD Primary Care Provider [phone] Maya Goyal MD Unavailable Erlin Delcid MD Unavailable Mehdi Bass DPM Unavailable Kae Whipple [facility] Unavailable Maya Goyal MD Unavailable No Ref-Primary, Physician Primary Care Provider Mehdi Bass DPM Unavailable [facility] Unavailable Reason for Visit * Reason Onset Date Comments Patient Inquiry 09/02/2021 Encounter Details Date Type Department Care Team (Late st Contact Info) Description 09/02/2021 [facility] [address] [address] Mehdi Bass DPM [address] [facility] [address] [place], [place] [address] Patient Inquiry Social History Tobacco Use Types [...] Sex Assigned at Male 09/17/2018 5:00 PM RECORD CLERK Gender Identity Male 09/17/2018 5:00 PM RECORD CLERK Sexual Orientation Straight 09/17/2018 5: 00 PM RECORD CLERK COVID-19 Exposure Response Date Recorded In the last month, have you been in contact with someone who was confirmed or suspected to have Coronavirus / COVID-19? No / Unsure 08/17/2021 12:57 PM RECORD CLERK documented as of this encounter Plan of Treatment Not on file documented as of this encounter Visit Diagnoses Not on filedocumented in this encounter Additional Health Concerns Assessment Noted Time PHQ-9 Depression Total Score: 10 021 2:58 PM CDT documented as of this encounter Care Teams Fund Raiser Relationship Specialty Start Date End Date Maya Goyal MD [address] [place] [address] PCP - General 05/03/04 11/14/22 No Ref-Primary, Physician PCP - General 11/15/22 Maya Goyal MD [address] [facility] [address] [place] [address] Assigned PCP 06/27/12 10/17/23 Erlin Delcid MD [address] [facility] [place] [address] Assigned Surgical Provider 09/12/20 Mehdi Bass DPM [address] [facility] [address] [place] [address] Assigned Musculoskeletal Provider 08/14/21 10/27/22 Kae Whipple [facility] [address] [place] [address] Assigned MTM Pharmacist 03/18/22 Maya Goyal MD [address] [facility] [address] [place] [address] Assigned Pain Medication Provider 10/02/22 03/23/23 Mehdi Bass DPM [address] [facility] [address] [place], [place] [address] Assigned Surgical Provider 10/28/22 [facility] [address] [place], [place] [address] Assigned PCP 10/18/23 documented as of this encounter
--- OUTSIDE RECORDS SUMMARY | 2024-07-03 14:23 | XMS_ITS | Encounter Summary ---
Author Organization [place] Address [address] [place] [address]. [place] [address] Care Team Providers Care Business Services Manager Name Role Phone Maya Goyal MD Primary Care Provider [phone] Maya Goyal MD Unavailable Erlin Delcid MD Unavailable [phone] Mehdi Bass DPM Unavailable Kae Whipple [facility] Unavailable Maya Goyal MD Unavailable No Ref-Primary, Physician Primary Care Provider Mehdi Bass DPM Unavailable [facility] Unavailable Reason for Visit * Reason Comments Medication Refill Encounter Details Date Type Department Care Team (Late st Contact Info) Description 09/25/2021 [facility] [address] [place] [address] Maya Goyal MD [address] [place] [address] Medication Refill Social History Tobacco [...] Sex Assigned at Male 09/17/2018 5:00 PM SOFTWARE ENGINEERING MANAGER Gender Identity Male 09/17/2018 5:00 PM SOFTWARE ENGINEERING MANAGER Sexual Orientation Straight 09/17/2018 5: 00 PM SOFTWARE ENGINEERING MANAGER documented as of this encounter Miscellaneous Notes * Telephone Encounter - Rukhsana Yo RN - 09/27/2021 3:57 PM CST Prescription approved per [facility] Refill Protocol. WARE ENGINEERING MANAGER documented in this encounter Plan of Treatment Not on file documented as of this encounter Visit Diagnoses Diagnosis Type 2 diabetes mellitus with stage 1 chronic kidney disease, without long-term current use of insulin (H) documented in this encounter Additional Health Concerns Assessment Noted Time PHQ-9 Depression Total Score: 10 021 2:58 PM CDT documented as of this encounter Care Teams Business Services Manager Relationship Specialty Start Date End Date Maya Goyal MD [address] [place] [address] PCP - General 05/03/04 11/14/22 No Ref-Primary, Physician PCP - General 11/15/22 Maya Goyal MD [address] [place] [address] Assigned PCP 06/27/12 10/17/23 Erlin Delcid MD [address] [address] Assigned Surgical Provider 09/12/20 [place] [address] [facility] [address] [place] [address] Assigned Musculoskeletal Provider 08/14/21 10/27/22 Kae Whipple [facility] [address] [place] [address] Assigned MTM Pharmacist 03/18/22 Maya Goyal MD 303 [facility] 200 [place] [address] Assigned Pain Medication Provider 10/02/22 03/23/23 Mehdi Bass DPM [address] [facility] [address] [place] [address] Assigned Surgical Provider 10/28/22 [facility] 303 [place] [address] Assigned PCP 10/18/23 documented as of this encounter
--- OUTSIDE RECORDS SUMMARY | 2024-07-03 14:23 | XMS_ITS | Encounter Summary ---
Author Organization [place] Address [address] [place] [address]. [place] [address] Care Team Providers Care Bow Maker Custom Name Role Phone Maya Goyal MD Primary Care Provider [phone] Maya Goyal MD Unavailable Mehdi Sen MD Unavailable [phone] Erlin Delcid MD Unavailable [phone] [facility] Unavailable Kae Whipple [facility] Unavailable Mehdi Bass DPM Unavailable [phone]ae [address] [facility] Unavailable [phone] Maya Goyal MD Unavailable No Ref-Primary, Physician Primary Care Provider Mehdi Bass DPM Unavailable [phone] [facility] Unavailable Encounter Details Date Type Department Care Team (Late st Contact Info) Description 11/01/2020 [facility] [place] [address] [place] [address] Erlin Delcid MD [address] [place], [place] [address] Social History Tobacco Use Types Packs/Day Years [...] Sex Assigned at Male 09/17/2018 5:00 PM DISPATCH SPECIALIST Gender Identity Male 09/17/2018 5:00 PM DISPATCH SPECIALIST Sexual Orientation Straight 09/17/2018 5: 00 PM DISPATCH SPECIALIST COVID-19 Exposure Response Date Recorded In the last month, have you been in contact with someone who was confirmed or suspected to have Coronavirus / COVID-19? No / Unsure 11/04/2020 1:14 PM DISPATCH SPECIALIST documented as of this encounter Plan of Treatment Not on file documented as of this encounter Visit Diagnoses Not on filedocumented in this encounter Additional Health Concerns Assessment Noted Time PHQ-9 Depression Total Score: 10 020 8:55 AM CDT documented as of this encounter Care Teams Bow Maker Custom Relationship Specialty Start Date End Date Maya Goyal MD [address] [place] [address] PCP - General 05/03/04 11/14/22 No Ref-Primary, Physician PCP - General 11/15/22 Maya Goyal MD [address] [place] [address] Assigned PCP 06/27/12 10/17/23 Mehdi Sen MD 9 [place] [address] Assigned Musculoskeletal Provider 07/16/20 12/18/20 Erlin Delcid MD [address] [place] [address] Assigned Surgical Provider 09/12/[address]lic[address] [facility] [address] [facility] [address]12 [place] [address] Pharmacist Pharmacist 11/09/20 12/06/20 Kae Wh[address] [facility] 303 [place] [address] Pharmacist Pharmacist 11/30/20 12/06/20 Mehdi Bass DPM [address] [place] [address] [place] [address] Assigned Musculoskeletal Provider 08/14/21 10/27/22 Kae Wh[address] [facility] 303 [place] [address] Assigned MTM Pharmacist 03/18/22 Maya Goyal MD 303 [facility] 200 [place] [address] Assigned Pain Medication Provider 10/02/22 03/23/23 Mehdi Bass DPM [address] [place] [address] [address] [place] [address] Assigned Surgical Provider 10/28/22 [facility] 303 [place] [address] Assigned PCP 10/18/23 documented as of this encounter
--- OUTSIDE RECORDS SUMMARY | 2024-07-03 14:23 | XMS_ITS | Encounter Summary ---
Author Organization [place] Address [address] [place] [address]. [place] [address] Care Team Providers Care Instructional Materials Director Name Role Phone Maya Goyal MD Primary Care Provider [phone] Maya Goyal MD Unavailable Erlin Delcid MD Unavailable [phone] Mehdi Bass DPQuita Unavailable Kea Whipple [facility] Unavailable Maya Goyal MD Unavailable No Ref-Primary, Physician Primary Care Provider Mehdi Bass DPM Unavailable [facility] Unavailable Encounter Details Date Type Department [...] Sex Assigned at Male 09/17/2018 5:00 PM COILED COIL INSPECTOR Gender Identity Male 09/17/2018 5:00 PM COILED COIL INSPECTOR Sexual Orientation Straight 09/17/2018 5: 00 PM COILED COIL INSPECTOR COVID-19 Exposure Response Date Recorded In the [...] documented as of this encounter Care Teams Instructional Materials Director Relationship Specialty Start Date End Date Maya Goyal MD [address] [place] [address] PCP - General 05/03/04 11/14/22 No Ref-Primary, Physician PCP - General 11/15/22 Maya Goyal MD [address] [place] [address] Assigned PCP 06/27/12 10/17/23 Erlin Delcid MD [address] [address] Assigned Surgical Provider 09/12/20 [place] [address] [facility] [address] [place] [address] Assigned Musculoskeletal Provider 08/14/21 10/27/22 Kae Whipple [facility] [address] [place] [address] Assigned MTM Pharmacist 03/18/22 Maya Goyal MD [address] [place] [address] Assigned Pain Medication Provider 10/02/22 03/23/23 Mehdi Bass DPM [address] [facility] [address] [place], [place] [address] Assigned Surgical Provider 10/28/22 [facility] 303 [place], [place] [address] Assigned PCP 10/18/23 documented as of this encounter
--- OUTSIDE RECORDS SUMMARY | 2024-07-03 14:23 | XMS_ITS | Referral Summary ---
Author Organization [place] Address [address] [place] [address] Care Team Providers Care High Reach Operator Name Role Phone No Ref-Primary, Physician Primary Care Provider [facility] Unavailable Allergies Active Allergy Reactions Criticality Noted [...] Total Score(s): No flowsheet data found. Last [facility] website verification: 09/19/19 [email or web address] CKD (chronic kidney disease) stage 1, GFR [...] Assigned at Male 09/17/2018 5:00 PM MANAGER PIPELINE Gender Identity Male 09/17/2018 5:00 PM MANAGER PIPELINE Sexual Orientation Straight 09/17/2018 5: 00 PM MANAGER PIPELINE Last Filed Vital Signs Vital Sign Reading Time Taken Comments Blood Pressure 138/88 11/17/2021 2:13 PM MANAGER PIPELINE Pulse 99 11/17/2021 2:13 PM MANAGER PIPELINE Temperature 37.1 ??C (98.7 ??F) 11/17/2021 2:13 PM CS T Respiratory Rate 18 11/17/2021 2:13 PM MANAGER PIPELINE Oxygen Saturation 98% 11/17/2021 2:13 PM MANAGER PIPELINE Inhaled Oxygen Concentration - - Weight 154.7 kg (341 lb) 11/17/2021 2:13 PM MANAGER PIPELINE Height 188 cm (6' 2) 11/17/2021 2:13 PM MANAGER PIPELINE Body Mass Index 43.78 11/17/2021 2:13 PM MANAGER PIPELINE Plan of Treatment Not on file Procedures Procedure Name Priority Date/Time Associated Diagnosis Comments URINE DRUG SCREEN CLINIC Routine 11/10/2021 10:09 AM MANAGER PIPELINE Chronic, continuous use of opioids ALBUMIN RANDOM URINE QUANTITATIVE Routine 11/10/2021 10:09 AM MANAGER PIPELINE Type 2 diabetes mellitus with stage 1 chronic kidney disease, without long-term current use of insulin (H) Benign essential hypertension BASIC METABOLIC PANEL Routine 11/10/2021 10:01 AM MANAGER PIPELINE Type 2 diabetes mellitus with stage 1 chronic kidney disease, without long-term current use of insulin (H) Benign essential hypertension HEMOGLOBIN A1C Routine 11/10/2021 10:01 AM MANAGER PIPELINE Type 2 diabetes mellitus with stage 1 chronic kidney disease, without long-term current use of insulin (H) EYE EXAM - HIM SCAN 05/20/2021 1 2:00 AM CDT LIPID REFLEX TO DIRECT LDL PANEL Routine 04/13/2021 4:09 PM CDT Hyperlipidemia LDL goal <100 COLONOSCOPY Routine 08/13/2019 10:[address] CHEST/ABDOMEN/PELVIS W CONTRAST STAT 02/18/2018 12:20 PM CDT HEPATITIS C SCREEN REFLEX TO HCV RNA QUANT AND GENOTYPE Routine 08/10/2017 11:22 AM MANAGER PIPELINE Encounter for routine adult health examination without abnormal findings FECAL COLORECTAL CANCER SCREEN FIT Routine 06/25/2013 11:31 AM CDT Screen for colon cancer UA MACROSCOPIC WITH REFLEX TO MICRO Routine 10/13/2010 4:49 PM MANAGER PIPELINE HTN (hypertension) from Last 3 Months or Most Recently Relevant to Health Maintenance Results * (ABNORMAL) Drug Abuse Screen Panel 13, Urine (Pain Care Package) - lab collect (11/10/2021 10:09 AMCST) [facility] Cannabinoids (63-uup-0-carboxy -9-THC) Not Detected Not Detected, Indeterminate 11/10/2021 10:28 AM MANAGER PIPELINE [facility] Comment:Cutoff for a negativ e cannabinoid is 50 ng/mL or less. Phencyclidine Not Detected Not Detected, Indeterminate 11/10/2021 10:28 AM MANAGER PIPELINE [facility] Comment:Cutoff for a negativ e PCP is 25 ng/mL or less. Cocaine (Benzoylecgonine) Not Detected Not Detected, Indeterminate 11/10/2021 10:28 AM MANAGER PIPELINE [facility] Comment:Cutoff for a negativ e cocaine is 150 ng/ml or less. Methamphetamine (d-Methamphetamin e) Not Detected Not Detected, Indeterminate 11/10/2021 10:28 AM MANAGER PIPELINE [facility] Comment:Cutoff for a negativ e methamphetamine is 500 ng/ml or less. Opiates (Morphine) Not Detected Not Detected, Indeterminate 11/10/2021 10:28 AM MANAGER PIPELINE [facility] Comment:Cutoff for a negativ e opiate is 100 ng/ml or less. Amphetamine (d-Amphetamine) Not Detected Not Detected, Indeterminate 11/10/2021 10:28 AM MANAGER PIPELINE [facility] Comment:Cutoff for a negativ e amphetamine is 500 ng/mL or less. Benzodiazepines (Nordiazepam) Not Detected Not Detected, Indeterminate 11/10/2021 10:28 AM MANAGER PIPELINE [facility] Comment:Cutoff for a negativ e benzodiazepine is 150 ng/ml or less. Tricyclic Antidepressants (Desipramine) Not Detected Not Detected, Indeterminate 11/10/2021 10:28 AM MANAGER PIPELINE [facility] Comment:Cutoff for a negativ e tricyclic antidepressant is 300 ng/ml or less. Methadone Not Detected Not Detected, Indeterminate 11/10/2021 10:28 AM MANAGER PIPELINE [facility] Comment:Cutoff for a negativ e methadone is 200 ng/ml or less. Barbiturates (Butalbital) Not Detected Not Detected, Indeterminate 11/10/2021 10:28 AM MANAGER PIPELINE [facility] Comment:Cutoff for a negativ e barbituate is 200 ng/ml or less. Oxycodone Detected(A ) Not Detected, Indeterminate 11/10/2021 10:28 AM MANAGER PIPELINE [facility] Comment: Cutoff for a positive oxycodone is greater than 100 ng/ml. This is an unconfirmed screening result to be used for medical purposes only. Propoxyphene (Norpropoxyphene) Not Detected Not Detected, Indeterminate 11/10/2021 10:28 AM MANAGER PIPELINE [facility] Comment:Cutoff for a negativ e propoxyphene is 300 ng/ml or less. Buprenorphine Not Detected Not Detected, Indeterminate 11/10/2021 10:28 AM MANAGER PIPELINE [facility] Comment:Cutoff for a negativ e buprenorphine is 10 ng/ml or less. Urine MID-STREAM URINE SPECIMEN / Unknown Non-blood Collection / Unknown 11/10/2021 10:09 AM MANAGER PIPELINE 11/10/2021 10:09 AM MANAGER PIPELINE Maya Goyal MD LAB - URINE ORDERABL ES Performing Organization Address City/[facility]/ZIP Co de Phone Number [facility] [address], [address] [place] [address], [place] [phone] * (ABNORMAL) Albumin Random Urine Quantitative with Creat Ratio (11/10/2021 10:09 AM MANAGER PIPELINE) Creatinine Urine mg/dL 74 mg/dL 11/11/2021 11:04 AM MANAGER PIPELINE [facility] Albumin Urine mg/L 14 mg/L 11/11/2021 11:04 AM MANAGER PIPELINE [facility] Albumin Urine mg/g Cr 18.92(H) 0.00 - 17.00 mg/g Cr 11/11/2021 11:04 AM MANAGER PIPELINE [facility] Urine MID-STREAM URINE SPECIMEN / Unknown Non-blood Collection / Unknown 11/10/2021 10:09 AM MANAGER PIPELINE 11/10/2021 10:09 AM MANAGER PIPELINE Maya Goyal MD LAB - URINE ORDERABL ES [facility] [address] Lab (no room number, 1st floor of clinic) [place] [address], [place] [phone] * (ABNORMAL) Hemoglobin A1c (11/10/2021 10:01 AM MANAGER PIPELINE) Hemoglobin A1C 6.6(H) 0.0 - 5.6 % 11/10/2021 10:26 AM MANAGER PIPELINE [facility] Comment: Normal <5.7% Prediabetes 5.7-6.4% ?? Diabetes 6.5% or higher Note: Adopted from ADA consensus guidelines. Blood BLOOD SPECIMEN / Unknown Venipuncture / Unknown 11/10/2021 10:01 AM MANAGER PIPELINE 11/10/2021 10:02 AM MANAGER PIPELINE Maya Goyal MD LAB - BLOOD ORDERABL ES OR LABORATORY [facility] [address] [place] [address], [facility] [phone] * (ABNORMAL) Basic metabolic panel (Ca, Cl, CO2, Creat, Gluc, K, Na, BUN) (11/10/2021 10:01 AM MANAGER PIPELINE) Sodium 131(L) 133 - 144 mmol/L 11/11/2021 8:39 AM MANAGER PIPELINE [facility] Potassium 4.8 3.4 - 5.3 mmol/L 11/11/2021 8:39 AM MANAGER PIPELINE [facility] Chloride 96 94 - 109 mmol/L 11/11/2021 8:39 AM MANAGER PIPELINE [facility] Carbon Dioxide (CO2) 22 20 - 32 mmol/L 11/11/2021 8:39 AM MANAGER PIPELINE [facility] Anion Gap 13 3 - 14 mmol/L 11/11/2021 8:39 AM MANAGER PIPELINE [facility] Urea Nitrogen 11 7 - 30 mg/dL 11/11/2021 8:39 AM MANAGER PIPELINE [facility] Creatinine 0.92 0.66 - 1.25 mg/dL 11/11/2021 8:39 AM MANAGER PIPELINE [facility] Calcium 8.9 8.5 - 10.1 mg/dL 11/11/2021 8:39 AM MANAGER PIPELINE [facility] Glucose 135(H) 70 - 99 mg/dL 11/11/2021 8:39 AM MANAGER PIPELINE [facility] GFR Estimate >90 >60 mL/min/1.7 3m2 11/11/2021 8:39 AM MANAGER PIPELINE [facility] Comment:Effective August 252020 eGFRcr in adults is calculated using the 2020 CKD-EPI creatinine equation which includes age and gender (Donis et al., NEJ, DOI: 10.1056/YWCFvy1857331) Blood BLOOD SPECIMEN / Unknown Venipuncture / Unknown 11/10/2021 10:01 AM MANAGER PIPELINE 11/10/2021 10:02 AM MANAGER PIPELINE Maya Goyal MD LAB - BLOOD ORDERABL ES [facility] LAB[facility]ATORY [facility] [address] Lab (no room number, 1st floor of clinic) [place] [address], [facility] [phone] * EYE EXAM - HIM SCAN (05/20/2021 12:00 AM CDT) RETINOPATHY NEGATIVE 05/20/2021 Narrative Kya Riley - 05/20/2021 12:00 AM CDT DIABETIC EYE EXAM [facility] Provider Outside OTHER * (ABNORMAL) Lipid [...] LAB - BLOOD ORDERABL ES [facility]X LAB[facility]ATORY [facility] [address] Lab (no room number, 1st floor of clinic) [place] [address], [facility] [phone] * COLONOSCOPY (08/13/2019 10:22 AM MANAGER PIPELINE) [facility] COLONOSCOPY [facility] Patient Name: Rafa Hickey ?Procedure Date: 08/13/2019 [...] # [id number], [place] ?# 221, SN # [id number] was introduced through the anus ?and advanced [...] history of colonic polyps CPT copyright 2018 [employer]. All rights reserved. The codes documented in this report are preliminary and upon mechanical service representative review may be revised to meet current compliance requirements. Electronically signed by Karlo Luis MD __ Karlo Luis MD 08/13/2019 10:51:03 AM I was physically present for the entire viewing portion of the exam. Karlo Luis MD Number of Addenda: 0 Note Initiated On: 08/13/2019 10:22 AM MRN: ?[id number] Procedure Date: ? 08/13/2019 10:22:02 AM Scope Withdrawal Time: 0 hours 6 minutes 13 seconds Total Procedure Duration: 0 hours 18 minutes 55 seconds Estimated Blood Loss: ? Scope In: 10:25:38 AM Scope Out: 10:44:33 AM RADIOLOGY RESULTS 08/13/2019 10:2 2 AM MANAGER PIPELINE Maya Goyal MD PROCEDURES RADIOLOGY RESULTS * [...] RNA Quant and Genotype (08/10/2017 11:22 AM MANAGER PIPELINE) Hepatitis C Antibody Nonreactive NR^Nonre active 08/13/2017 10:[address] [facility] Comment: Assay performance characteristics have not been established for newborns, infants, and children Blood specimen (specimen) 08/10/2017 11:22 AM MANAGER PIPELINE 08/10/2017 11:23 AM MANAGER PIPELINE Maya Goyal MD LAB - BLOOD ORDERABL ES [facility] [address] [address] * Fecal colorectal cancer screen (FIT) (06/25/2013 11:31 AM CDT) Occult Blood Scn FIT Negative NEG [facility] Stool specimen (specimen) 06/25/2013 11:31 AM CDT 06/25/2013 11:32 AM CDT Maya Goyal MD LAB - STOOLS ORDERAB LES Performing Organization Address City/[facility]/ZIP Co de Phone Number [facility] * (ABNORMAL) UA macroscopic with reflex to micro (10/13/2010 4:49 PM MANAGER PIPELINE) Color Urine Yellow [facility] Appearance Urine Clear [facility] Glucose Urine Negative NEG mg/dL [facility] Bilirubin Urine Negative NEG [facility] Ketones Urine Negative NEG mg/dL [facility] Specific [place] Urine 1.015 1.003 - 1.035 [facility] Blood Urine Moderate(A) NEG [facility] pH Urine 5.5 5.0 - 7.0 pH [facility] Protein Albumin Urine Negative NEG mg/dL [facility] Urobilinogen Urine 0.2 0.2 - 1.0 EU/dL [facility] Nitrite Urine Negative NEG [facility] Leukocyte Esterase Urine Negative NEG [facility] Source Midstream Urine [facility] Urine specimen (specimen) 10/13/2010 4:49 PM MANAGER PIPELINE 10/13/2010 4:54 PM MANAGER PIPELINE Maya Goyal MD LAB - URINE ORDERABL ES Performing Organization Address City/[facility]/ZIP Co de Phone Number [facility] from Last 3 Months or Most Recently Relevant to Health Maintenance Advance Directives For more information, please contact: [phone] * Full Code (Latest Code Status on [...] 1:26 PM 09/12/2017 10:19 AM Care Teams High Reach Operator Relationship Specialty Start Date End Date No Ref-Primary, Physician PCP - General 11/15/[address] [address] Assigned PCP 10/18/23
--- OUTSIDE RECORDS SUMMARY | 2024-07-03 14:23 | XMS_ITS | Encounter Summary ---
Author Organization [place] Address [address] [place] [address]. [place] [address] Care Team Providers Care Certified Pest Control Technician Name Role Phone Maya Goyal MD Primary Care Provider Maya Goyal MD Unavailable Erlin Delcid MD Unavailable [phone] Mehdi Bass DPM Unavailable [phone] Kae Whipple [facility] Unavailable [phone] Maya Goyal MD Unavailable No Ref-Primary, Physician Primary Care Provider Mehdi Bass DPM Unavailable [facility] Unavailable Reason for Visit * Reason Onset Date Comments MyChart Communication 11/09/2021 Encounter Details Date Type Department Care Team (Late st Contact Info) Description 11/09/2021 MyC Medical Advice M [facility] [address] [place] [address] Maya Goyal MD [address] [place] [address] MyChart Communication Social History Tobacco [...] Sex Assigned at Male 09/17/2018 5:00 PM LIBRARY HELPER Gender Identity Male 09/17/2018 5:00 PM LIBRARY HELPER Sexual Orientation Straight 09/17/2018 5: 00 PM LIBRARY HELPER COVID-19 Exposure Response Date Recorded In the last month, have you been in contact with someone who was confirmed or suspected to have Coronavirus / COVID-19? No / Unsure 11/10/2021 9:52 AM LIBRARY HELPER documented as of this encounter Miscellaneous Notes * Telephone Encounter - Rukhsana Bowden RN - 11/09/2021 12:58 PM LIBRARY HELPER See [facility] message. Sent his refill request encounter to Dr Goyal. ARY HELPER documented in this encounter Plan of Treatment Not on file documented as of this encounter Visit Diagnoses Not on filedocumented in this encounter Additional Health Concerns Assessment Noted Time PHQ-9 Depression Total Score: 10 021 2:58 PM CDT documented as of this encounter Care Teams Certified Pest Control Technician Relationship Specialty Start Date End Date Maya Goyal MD [address] [place] [address] PCP - General 05/03/04 11/14/22 No Ref-Primary, Physician PCP - General 11/15/22 Maya Goyal MD [address] [place] [address] Assigned PCP 06/27/12 10/17/23 Erlin Delcid MD [address] [address] Assigned Surgical Provider 09/12/20 Mehdi Bass DPM [id number] [place] [address] [address] [place] [address] Assigned Musculoskeletal Provider 08/14/21 10/27/22 Kae Whipple [facility] [address] [place] [address] Assigned MTM Pharmacist 03/18/22 Maya Goyal MD [address] [facility] [address] [place] [address] Assigned Pain Medication Provider 10/02/22 03/23/23 Mehdi Bass DPM [id number] [place] [address] [address] [place] [address] Assigned Surgical Provider 10/28/22 [facility] [address] [place] [address] Assigned PCP 10/18/23 documented as of this encounter
--- OUTSIDE RECORDS SUMMARY | 2024-07-03 14:23 | XMS_ITS | Encounter Summary ---
Author Organization [place] Address [address] [place] [address]. [place] [address] Care Team Providers Care Box Sealing Machine Catcher Name Role Phone Maya Goyal MD Primary Care Provider [phone] Maya Goyal MD Unavailable Mehdi Sen MD Unavailable [phone] Erlin Delcid MD Unavailable [phone] Elicia Bedoya [facility] Unavailable [phone] Kae Whipple [facility] Unavailable [phone] Mehdi Bass DPM Unavailable [phone] Kae Whipple [facility] Unavailable [phone] Maya Goyal MD Unavailable No Ref-Primary, Physician Primary Care Provider Mehdi Bass DPM Unavailable [phone] [facility] Unavailable Encounter Details Date Type Department Care Team (Late st Contact Info) Description 11/01/2020 [facility] [address] [place] [address] Erlin Delcid MD [address] [facility] [address] [place], [place] [id number] Social History Tobacco Use Types Packs/Day Years [...] Sex Assigned at Male 09/17/2018 5:00 PM MERCURY WASHER Gender Identity Male 09/17/2018 5:00 PM MERCURY WASHER Sexual Orientation Straight 09/17/2018 5: 00 PM MERCURY WASHER COVID-19 Exposure Response Date Recorded In the last month, have you been in contact with someone who was confirmed or suspected to have Coronavirus / COVID-19? No / Unsure 11/04/2020 1:14 PM MERCURY WASHER documented as of this encounter Plan of Treatment Not on file documented as of this encounter Visit Diagnoses Not on filedocumented in this encounter Additional Health Concerns Assessment Noted Time PHQ-9 Depression Total Score: 10 020 8:55 AM CDT documented as of this encounter Care Teams Box Sealing Machine Catcher Relationship Specialty Start Date End Date Maya Goyal MD [address] [place] [id number] PCP - General 05/03/04 11/14/22 No Ref-Primary, Physician PCP - General 11/15/22 Maya Goyal MD [address] [place] [address] Assigned PCP 06/27/12 10/17/23 Mehdi Sen MD 909 [place] [address] Assigned Musculoskeletal Provider 07/16/20 12/18/20 Erlin Delcid MD [address] [place] [address] Assigned Surgical Provider 09/12/20 Elicia Bedoya [facility] [address] [facility] 812 [place] [address] Pharmacist Pharmacist 11/09/20 12/06/20 Kae Whipple [facility] 303 [place] [address] Pharmacist Pharmacist 11/30/20 12/06/20 Mehdi Bass DPM [address] [place] [address] [place] [address] Assigned Musculoskeletal Provider 08/14/21 10/27/22 Kae Whipple [facility] 303 [place] [address] Assigned MTM Pharmacist 03/18/22 Maya Goyal MD 303 [facility] 200 [place] [address] Assigned Pain Medication Provider 10/02/22 03/23/23 Mehdi Bass DPM [address] [place] [address] [address] [place] [address] Assigned Surgical Provider 10/28/22 [facility] 303 [place] [address] Assigned PCP 10/18/23 documented as of this encounter
--- OUTSIDE RECORDS SUMMARY | 2024-07-03 14:23 | XMS_ITS | Encounter Summary ---
Author Organization [place] Address [address] [place] [address] Care Team Providers Care Wind Tunnel Engineer Name Role Phone Maya Goyal MD Primary Care Provider [phone] Maya Goyal MD Unavailable Erlin Delcid MD Unavailable [phone] Mehdi Bass DPM Unavailable [phone] Kae Whipple [facility] Unavailable Maya Goyal MD Unavailable No Ref-Primary, Physician Primary Care Provider Mehdi Bass DPM Unavailable [facility] Unavailable Encounter Details Date Type Department Care Team (Late st Contact Info) Description 01/12/2022 [facility] [address] [place] [address] Maya Goyal MD [address] [place] [address] Social History Tobacco Use Types [...] Sex Assigned at Male 09/17/2018 5:00 PM OVERWEAVER Gender Identity Male 09/17/2018 5:00 PM OVERWEAVER Sexual Orientation Straight 09/17/2018 5: 00 PM OVERWEAVER documented as of this encounter Plan of Treatment Not on file documented as of this encounter Visit Diagnoses Not on filedocumented in this encounter Additional Health Concerns Assessment Noted Time PHQ-9 Depression Total Score: 10 021 2:58 PM CDT documented as of this encounter Care Teams Wind Tunnel Engineer Relationship Specialty Start Date End Date Maya Goyal MD [address] [place] [address] PCP - General 05/03/04 11/14/22 No Ref-Primary, Physician PCP - General 11/15/22 Maya Goyal MD [address] [place] [address] Assigned PCP 06/27/12 10/17/23 Erlin Delcid MD [address] [address] Assigned Surgical Provider 09/12/20 Mehdi Bass DPM [address] [facility] [address] [place] [address] Assigned Musculoskeletal Provider 08/14/21 10/27/22 Kae Whipple [facility] [address] [place] [address] Assigned MTM Pharmacist 03/18/22 Maya Goyal MD [address] [facility] 200 [place] [address] Assigned Pain Medication Provider 10/02/22 03/23/23 [place] DPM [address] [facility] [address] [place], [place] [address] Assigned Surgical Provider 10/28/22 [facility] 303 [place], [place] [address] Assigned PCP 10/18/23 documented as of this encounter
--- OUTSIDE RECORDS SUMMARY | 2024-07-03 14:23 | XMS_ITS | Encounter Summary ---
Author Organization [place] Address [address] [place] [address] Care Team Providers Care Digital Asset Coordinator Name Role Phone Maya Goyal MD Primary Care Provider [phone] Maya Goyal MD Unavailable Mehdi Sen MD Unavailable [phone] Erlin Delcid MD Unavailable [phone] Elicia Bedoya [facility] Unavailable [phone] Kae Whipple [facility] Unavailable [phone] Medhi Bass DPM Unavailable [phone] Kae Whipple [facility] Unavailable [phone] Maya Goyal MD Unavailable No Ref-Primary, Physician Primary Care Provider Mehdi Bass DPM Unavailable [phone] [facility] Unavailable Reason for Visit * Reason Onset Date Comments Appointment 08/24/2020 Referral to Urol jacy Encounter Details Date Type Department Care Team (Late st Contact Info) Description 08/24/2020 [facility] [address] [place] [address] Unknown Appointment (Referral to Urology) [...] Sex Assigned at Male 09/17/2018 5:00 PM GREEN PLUMBER Gender Identity Male 09/17/2018 5:00 PM GREEN PLUMBER Sexual Orientation Straight 09/17/2018 5: 00 PM GREEN PLUMBER COVID-19 Exposure Response Date Recorded In the last month, have you been in contact with someone who was confirmed or suspected to have Coronavirus / COVID-19? No / Unsure 08/27/2020 11:58 AM GREEN PLUMBER documented as of this encounter Miscellaneous Notes * Telephone Encounter - Smitha Harris - 08/24/2020 1:34 PM CST [facility] Call Center Phone Message May a [...] Thanks! Action Taken: Message routed to: Other: [facility] Urology- [place] Travel Screening: Not Applicable N PLUMBER documented in this encounter Plan of Treatment Not on file documented as of this encounter Visit Diagnoses Not on filedocumented in this encounter Additional Health Concerns Infection Onset Date Last Indicated Resolved Time COVID-19 08/27/2020 08/27/2020 09/17/2020 11:4 0 PM GREEN PLUMBER Assessment Noted Time PHQ-9 Depression Total Score: 10 020 8:55 AM CDT documented as of this encounter Care Teams Digital Asset Coordinator Relationship Specialty Start Date End Date Maya Goyal MD [address] [facility] 200 [place] [address] PCP - General 05/03/04 11/14/22 No Ref-Primary, Physician PCP - General 11/15/22 Maya Goyal MD [address] [facility] 200 [place] [address] Assigned PCP 06/27/12 10/17/23 Mehdi Sen MD [address] [place] [address] Assigned Musculoskeletal Provider 07/16/20 12/18/20 Erlin Delcid MD [address] [facility] [address] [address] Assigned Surgical Provider 09/12/20 Elicia Bedoya [facility] [address] [place] [address] 812 [place] [address] Pharmacist Pharmacist 11/09/20 12/06/20 Kae Whipple [facility] [address] [place], [place] [address] Pharmacist Pharmacist 11/30/20 12/06/20 Mehdi Bass DPM [address] [facility] 300 [place], [place] [address] Assigned Musculoskeletal Provider 08/14/21 10/27/22 Kae Whipple [facility] [address] [place], [place] [address] Assigned MTM Pharmacist 03/18/22 Maya Goyal MD [address] [facility] 200 [place], [place] 45[address] Assigned Pain Medication Provider 10/02/22 03/23/23 Mehdi Bass DPM [address] [facility] 300 [place], [place] [address] Assigned Surgical Provider 10/28/[address] [address] Assigned PCP 10/18/23 documented as of this encounter
--- OUTSIDE RECORDS SUMMARY | 2024-07-03 14:23 | XMS_ITS | Encounter Summary ---
Author Organization [place] Address [address] [place] [address]. [place] [address] Care Team Providers Care Cup Trimming Machine Operator Name Role Phone Maya Goyal MD Primary Care Provider Maya Goyal MD Unavailable Erlin Delcid MD Unavailable Mehdi Bass DPM Unavailable Kae Whipple [facility] Unavailable Maya Goyal MD Unavailable No Ref-Primary, Physician Primary Care Provider Mehdi Bass DPM Unavailable [facility] Unavailable Reason for Visit * Reason Comments Medication Refill Encounter Details Date Type Department Care Team (Late st Contact Info) Description 07/11/2021 [facility] [address] [place] [address] Maya Goyal MD [address] [place] [address] Medication Refill Social History Tobacco [...] Sex Assigned at Male 09/17/2018 5:00 PM EPIC CADENCE ANALYST Gender Identity Male 09/17/2018 5:00 PM EPIC CADENCE ANALYST Sexual Orientation Straight 09/17/2018 5: 00 PM EPIC CADENCE ANALYST documented as of this encounter Miscellaneous Notes * Telephone Encounter - Rukhsana Yo RN - 07/13/2021 12:52 PM CDT Prescription approved per [facility] Refill Protocol. documented in this encounter Plan of Treatment Not on file documented as of this encounter Visit Diagnoses Diagnosis Type 2 diabetes mellitus with stage 1 chronic kidney disease, without long-term current use of insulin (H) documented in this encounter Additional Health Concerns Assessment Noted Time PHQ-9 Depression Total Score: 10 021 2:58 PM CDT documented as of this encounter Care Teams Cup Trimming Machine Operator Relationship Specialty Start Date End Date Maya Goyal MD [address] [place] [address] PCP - General 05/03/04 11/14/22 No Ref-Primary, Physician PCP - General 11/15/22 Maya Goyal MD [address] [place] [address] Assigned PCP 06/27/12 10/17/23 Erlin Delcid MD [address] [address] Assigned Surgical Provider 09/12/20 [place] [address] [facility] 300 [place] [address] Assigned Musculoskeletal Provider 08/14/21 10/27/22 Kae Whipple RP 303 [place] [address] Assigned MTM Pharmacist 03/18/22 Maya Goyal MD 303 [facility] 200 [place] [address] Assigned Pain Medication Provider 10/02/22 03/23/23 [place] [address] [facility] [address] [place] [address] Assigned Surgical Provider 10/28/22 [facility] 303 [place] [address] Assigned PCP 10/18/23 documented as of this encounter
--- OUTSIDE RECORDS SUMMARY | 2024-07-03 14:23 | XMS_ITS | Encounter Summary ---
Author Organization [place] Address [address] [place] [address] Care Team Providers Care Water Truck Driver Name Role Phone Maya Goyal MD Primary Care Provider [phone] Maya Goyal MD Unavailable Mehdi Sen MD Unavailable [phone] Erlin Delcid MD Unavailable [phone] Elicia Bedoya [facility] Unavailable [phone] Kae Whipple [facility] Unavailable Mehdi Bass DPM Unavailable [phone] Kae Whipple [facility] Unavailable Maya Goyal MD Unavailable No Ref-Primary, Physician Primary Care Provider Mehdi Bass DPM Unavailable [phone] [facility] Unavailable Reason for Visit * Reason Comments Medication Refill Encounter Details Date Type Department Care Team (Late st Contact Info) Description 09/30/2020 [facility] [address] [place] [address] Maya Goyal MD [address] [place] [address] Medication Refill Social History Tobacco [...] Sex Assigned at Male 09/17/2018 5:00 PM FOUNDATION RELATIONS MANAGER Gender Identity Male 09/17/2018 5:00 PM FOUNDATION RELATIONS MANAGER Sexual Orientation Straight 09/17/2018 5: 00 PM FOUNDATION RELATIONS MANAGER COVID-19 Exposure Response Date Recorded In the last month, have you been in contact with someone who was confirmed or suspected to have Coronavirus / COVID-19? Yes 09/07/2020 1:45 PM FOUNDATION RELATIONS MANAGER documented as of this encounter Miscellaneous Notes * Telephone Encounter - Eva Garcia LPN - 10/05/2020 11:58 AM FOUNDATION RELATIONS MANAGER Spoke with Patient he is aware and transferred to appiontment desk BMeron Garcia LPN DATION RELATIONS MANAGER * Telephone Encounter - Basilia Felipe MD - 10/01/2020 4:04 PM FOUNDATION RELATIONS MANAGER Please have him schedule an apptsoon, as he is almost due for diabetic check and can recheck sodiumsame time DATION RELATIONS MANAGER * Telephone Encounter - India Tapia RN - 10/01/2020 9:58 AM CST Routing refill request to provider for review/approval because: Labs out of range: Sodium Date Value Ref Range Status 05/24/2020 127 (L) 133 - 144 mmol/L Final India Tapia RN, BSN DATION RELATIONS MANAGER documented in this encounter Plan of Treatment Not on file documented as of this encounter Visit Diagnoses Diagnosis Benign essential hypertension Essential hypertension, benign documented in this encounter Additional Health Concerns Assessment Noted Time PHQ-9 Depression Total Score: 10 020 8:55 AM CDT documented as of this encounter Care Teams Water Truck Driver Relationship Specialty Start Date End Date Maya Goyal MD [address] [facility] 200 [place] [address] PCP - General 05/03/04 11/14/22 No Ref-Primary, Physician PCP - General 11/15/22 Maya Goyal MD [address] [facility] 200 [place] [address] Assigned PCP 06/27/12 10/17/23 Mehdi Sen MD 909 [place], [place] [address] Assigned Musculoskeletal Provider 07/16/20 12/18/20 Erlin Delcid MD [address] [facility] [address] [address] Assigned Surgical Provider 09/12/20 Elicia Bedoya [facility] [address] [place] [address] 812 [place] [address] Pharmacist Pharmacist 11/09/20 12/06/20 Kae Whipple [facility] [address] [place], [place] [address] Pharmacist Pharmacist 11/30/20 12/06/20 Mehdi Bass DPM [address] [facility] [address] [place] [address] Assigned Musculoskeletal Provider 08/14/21 10/27/22 Kae Whipple [facility] 303 [place] [address] Assigned MTM Pharmacist 03/18/22 Maya Goyal MD [address] [facility] 200 [place] [address] Assigned Pain Medication Provider 10/02/22 03/23/23 [place] [address] [facility] 300 [place], [place] [address] Assigned Surgical Provider 10/28/22 [facility] 303 [place] [address] Assigned PCP 10/18/23 documented as of this encounter
--- OUTSIDE RECORDS SUMMARY | 2024-07-03 14:23 | XMS_ITS | Encounter Summary ---
Author Organization [place] Address [address] [place] [address]. [place] [address] Care Team Providers Care Rehab Aid Name Role Phone Maya Goyal MD Primary Care Provider [phone] Maya Goyal MD Unavailable Erlin Delcid MD Unavailable [phone] Mehdi Bass DPM Unavailable Kae Whipple [facility] Unavailable Maya Goyal MD Unavailable No Ref-Primary, Physician Primary Care Provider Mehdi Bass DPM Unavailable [phone] [facility] Unavailable Reason for Visit * Reason Comments Medication Refill Encounter Details Date Type Department Care Team (Late st Contact Info) Description 07/20/2021 [facility] [address] [place] [address] Maya Goyal MD [address] [place] [address] Medication Refill Social History Tobacco [...] Sex Assigned at Male 09/17/2018 5:00 PM INVENTORY CONTROL ASSOCIATE Gender Identity Male 09/17/2018 5:00 PM INVENTORY CONTROL ASSOCIATE Sexual Orientation Straight 09/17/2018 5: 00 PM INVENTORY CONTROL ASSOCIATE documented as of this encounter Miscellaneous Notes * Telephone Encounter - Rukhsana Yo RN - 07/20/2021 3:55 PM CDT Prescription approved per [facility] Refill Protocol. * Telephone Encounter - [...] documented as of this encounter Care Teams Rehab Aid Relationship Specialty Start Date End Date Maya Goyal MD [address] [place] [address] PCP - General 05/03/04 11/14/22 No Ref-Primary, Physician PCP - General 11/15/22 Maya Goyal MD [address] [place] [address] Assigned PCP 06/27/12 10/17/23 Erlin Delcid MD [address] [address] Assigned Surgical Provider 09/12/20 [place] [address] [facility] [address] [place] [address] Assigned Musculoskeletal Provider 08/14/21 10/27/22 Kae Whipple [facility] [address] [place] [address] Assigned MTM Pharmacist 03/18/22 Maya Goyal MD [address] [facility] 200 [place] [address] Assigned Pain Medication Provider 10/02/22 03/23/23 Meh[place] D[place] [address] [facility] [address] [place] [address] Assigned Surgical Provider 10/28/22 [facility] 303 [place], [place] [address] Assigned PCP 10/18/23 documented as of this encounter
--- OUTSIDE RECORDS SUMMARY | 2024-07-03 14:23 | XMS_ITS | Encounter Summary ---
Author Organization [place] Address [address] [place] [address]. [place] [address] Care Team Providers Care Hat And Cap Drying Room Attendant Name Role Phone Maya Goyal MD Unavailable No Ref-Primary, Physician Primary Care Provider [facility] Unavailable Reason for Visit * Reason Comments Medication Refill Encounter Details Date Type Department Care Team (Late st Contact Info) Description 10/03/2023 [facility] [address] [place] [address] Maya Goyal MD [address] [place] [address] Medication Refill Social History Tobacco [...] Sex Assigned at Male 09/17/2018 5:00 PM CRANBERRY FARM SUPERVISOR Gender Identity Male 09/17/2018 5:00 PM CRANBERRY FARM SUPERVISOR Sexual Orientation Straight 09/17/2018 5: 00 PM CRANBERRY FARM SUPERVISOR documented as of this encounter Miscellaneous Notes * Telephone Encounter - Rukhsana Bowden RN - 10/03/2023 1:53 PM CRANBERRY FARM SUPERVISOR Pt going to [facility] now. Please deny med, will put notes in Rx. Catia Swift MD [address] [place] [address] BERRY FARM SUPERVISOR documented in this encounter Plan of Treatment Not on file documented as of this encounter Visit Diagnoses Diagnosis Type 2 diabetes mellitus with stage 1 chronic kidney disease, without long-term current use of insulin (H) documented in this encounter Additional Health Concerns Assessment Noted Time PHQ-9 Depression Total Score: 10 05/16/ 021 2:58 PM CDT documented as of this encounter Care Teams Hat And Cap Drying Room Attendant Relationship Specialty Start Date End Date No Ref-Primary, Physician PCP - General 11/15/22 Maya Goyal MD 303 [facility] 200 [place], [place] [address] Assigned PCP 06/27/12 10/17/23 [facility] 303 [place] [address] Assigned PCP 10/18/23 documented as of this encounter
--- OUTSIDE RECORDS SUMMARY | 2024-07-03 14:23 | XMS_ITS | Encounter Summary ---
Author Organization [place] Address [address] [place] [address]. [place] [address] Care Team Providers Care Senior Etl Developer Name Role Phone Maya Goyal MD Primary Care Provider Maya Goyal MD Unavailable Erlin Delcid MD Unavailable Mehdi Bass DPM Unavailable Kae Whipple [facility] Unavailable Maya Goyal MD Unavailable No Ref-Primary, Physician Primary Care Provider Mehdi Bass DPM Unavailable [phone] [facility] Unavailable Reason for Visit * Reason Comments Medication Refill Encounter Details Date Type Department Care Team (Late st Contact Info) Description 06/25/2021 [facility] [address] [place] [address] Maya Goyal MD [address] [place] [address] Medication Refill Social History Tobacco [...] Sex Assigned at Male 09/17/2018 5:00 PM GANG MINER Gender Identity Male 09/17/2018 5:00 PM GANG MINER Sexual Orientation Straight 09/17/2018 5: 00 PM GANG MINER documented as of this encounter Miscellaneous Notes * Telephone Encounter - Celestino Latham RN - 06/27/2021 2:46 PM CDT Prescription approved per [facility] Refill Protocol. documented in this encounter Plan of Treatment Not on file documented as of this encounter Visit Diagnoses Diagnosis Moderate episode of recurrent major depressive disorder (H)- Primary documented in this encounter Additional Health Concerns Assessment Noted Time PHQ-9 Depression Total Score: 10 021 2:58 PM CDT documented as of this encounter Care Teams Senior Etl Developer Relationship Specialty Start Date End Date Maya Goyal MD [address] [place] [address] PCP - General 05/03/04 11/14/22 No Ref-Primary, Physician PCP - General 11/15/22 Maya Goyal MD [address] [place] [address] Assigned PCP 06/27/12 10/17/23 Erlin Delcid MD [address] [facility] 500 [place] [address] Assigned Surgical Provider 09/12/20 [place] [address] [facility] [address] [place] [address] Assigned Musculoskeletal Provider 08/14/21 10/27/22 Kae Whipple [facility] 303 [place] [address] Assigned MTM Pharmacist 03/18/22 Maya Goyal MD 303 [facility] 200 [place] [address] Assigned Pain Medication Provider 10/02/22 03/23/23 Mehdi Bass DPM [address] [facility] [address] [place] [address] Assigned Surgical Provider 10/28/22 [facility] 303 [place] [address] Assigned PCP 10/18/23 documented as of this encounter
--- OUTSIDE RECORDS SUMMARY | 2024-07-03 14:23 | XMS_ITS | Encounter Summary ---
Author Organization [place] Address [address] [place] [address] Care Team Providers Care Python Consultant Name Role Phone Maya Goyal MD Primary Care Provider [phone] Maya Goyal MD Unavailable Mehdi Sen MD Unavailable [phone] Erlin Delcid MD Unavailable [phone] Elicia Bedoya [facility] Unavailable Kae Whipple [facility] Unavailable [phone] Mehdi Bass DPM Unavailable [phone] Kae Whipple [facility] Unavailable Maya Goyal MD Unavailable No Ref-Primary, Physician Primary Care Provider Mehdi Bass DPM Unavailable [phone] [facility] Unavailable Reason for Visit * Reason Comments Medication Refill Encounter Details Date Type Department Care Team (Late st Contact Info) Description 10/25/2020 [facility] [address] [place] [address] Maya Goyal MD [address] [place] [address] Medication Refill Social History Tobacco [...] Sex Assigned at Male 09/17/2018 5:00 PM CROSS TIE MAKER Gender Identity Male 09/17/2018 5:00 PM CROSS TIE MAKER Sexual Orientation Straight 09/17/2018 5: 00 PM CROSS TIE MAKER COVID-19 Exposure Response Date Recorded In the last month, have you been in contact with someone who was confirmed or suspected to have Coronavirus / COVID-19? No / Unsure 10/21/2020 10:08 AM CROSS TIE MAKER documented as of this encounter Miscellaneous Notes * Telephone Encounter - Susan Kohler RN - 10/26/2020 11:53 AM CROSS TIE MAKER Patient has refills remaining with requesting pharmacy. Susan Cancino - Registered Nurse [facility] S TIE MAKER documented in this encounter Plan of Treatment Not on file documented as of this encounter Visit Diagnoses Diagnosis Type 2 diabetes mellitus with stage 1 chronic kidney disease, without long-term current use of insulin (H) documented in this encounter Additional Health Concerns Assessment Noted Time PHQ-9 Depression Total Score: 10 020 8:55 AM CDT documented as of this encounter Care Teams Python Consultant Relationship Specialty Start Date End Date Maya Goyal MD [address] [place] [address] PCP - General 05/03/04 11/14/22 No Ref-Primary, Physician PCP - General 11/15/22 Maya Goyal MD [address] [place] [address] Assigned PCP 06/27/12 10/17/23 Mehdi Sen MD [address] [place] [address] Assigned Musculoskeletal Provider 07/16/20 12/18/20 Erlin Delcid MD [address] [address] Assigned Surgical Provider 09/12/20 Elicia Bedoya [facility] [address] [address] [address] [place] [address] Pharmacist Pharmacist 11/09/20 12/06/20 Kae Whipple [address] [place] [address] Pharmacist Pharmacist 11/30/20 12/06/20 [place] [address] [address] [place] [address] Assigned Musculoskeletal Provider 08/14/21 10/27/22 Kae Whipple [address] [place] [address] Assigned MTM Pharmacist 03/18/22 Maya Goyal MD [address] [facility] 200 [place] [address] Assigned Pain Medication Provider 10/02/22 03/23/23 [place] [address] [place] [address] Assigned Surgical Provider 10/28/[address] [address] Assigned PCP 10/18/23 documented as of this encounter
--- OUTSIDE RECORDS SUMMARY | 2024-07-03 14:23 | XMS_ITS | Encounter Summary ---
Author Organization [place] Address [address] [place] [address]. [place] [address] Care Team Providers Care Ring Making Machine Operator Name Role Phone Maya Goyal MD Primary Care Provider Maya Goyal MD Unavailable Erlin Delcid MD Unavailable Mehdi Bass DPM Unavailable Kae Whipple [facility] Unavailable Maya Goyal MD Unavailable No Ref-Primary, Physician Primary Care Provider Mehdi Bass DPM Unavailable [facility] Unavailable Reason for Visit * Reason Onset Date Comments Orders 09/04/2021 Encounter Details Date Type Department Care Team (Late st Contact Info) Description 09/04/2021 [facility] Medical Advice [facility] [address] [place] [address] Maya Goyal MD [address] [place] [address] Orders Social History Tobacco Use [...] Assigned at Male 09/17/2018 5:00 PM SENIOR FIELD SERVICE ENGINEER Gender Identity Male 09/17/2018 5:00 PM SENIOR FIELD SERVICE ENGINEER Sexual Orientation Straight 09/17/2018 5: 00 PM SENIOR FIELD SERVICE ENGINEER COVID-19 Exposure Response Date Recorded In the last month, have you been in contact with someone who was confirmed or suspected to have Coronavirus / COVID-19? No / Unsure 08/17/2021 12:57 PM SENIOR FIELD SERVICE ENGINEER documented as of this encounter Miscellaneous Notes * Telephone Encounter - Rukhsana Bowden RN - 09/06/2021 10:08 AM SENIOR FIELD SERVICE ENGINEER Sent Sn[employer] message. OR FIELD SERVICE ENGINEER documented in this encounter Plan of Treatment Not on file documented as of this encounter Visit Diagnoses Not on filedocumented in this encounter Additional Health Concerns Assessment Noted Time PHQ-9 Depression Total Score: 10 021 2:58 PM CDT documented as of this encounter Care Teams Ring Making Machine Operator Relationship Specialty Start Date End Date Maya Goyal MD [address] [place] [address] PCP - General 05/03/04 11/14/22 No Ref-Primary, Physician PCP - General 11/15/22 Maya Goyal MD [address] [place] [address] Assigned PCP 06/27/12 10/17/23 Erlin Delcid MD [address] [address] Assigned Surgical Provider 09/12/20 [place] [address] [facility] [address] [place] [address] Assigned Musculoskeletal Provider 08/14/21 10/27/22 Kae Whipple [facility] [address] [place], [place] 8023[address] Assigned MTM Pharmacist 03/18/22 Maya Goyal MD [address] [facility] 200 [place], [place] [address] Assigned Pain Medication Provider 10/02/22 03/23/23 [place] [address] [facility] [address] [place] [address] Assigned Surgical Provider 10/28/[address] [facility] [address] [place], [place] [address] Assigned PCP 10/18/23 documented as of this encounter
--- OUTSIDE RECORDS SUMMARY | 2024-07-03 14:23 | XMS_ITS | Encounter Summary ---
Author Organization [place] Address [address] [place] [address]. [place] [address] Care Team Providers Care Manufacturing Supervisor 2Nd Shift Name Role Phone Maya Goyal MD Primary Care Provider Maya Goyal MD Unavailable Erlin Delcid MD Unavailable [phone] Mehdi Bass DPM Unavailable [phone] Kae Whipple [facility] Unavailable [phone] Maya Goyal MD Unavailable No Ref-Primary, Physician Primary Care Provider Mehdi Bass DPM Unavailable [phone] [facility] Unavailable Reason for Visit * Reason Comments Medication Refill Encounter Details Date Type Department Care Team (Late st Contact Info) Description 12/05/2021 [facility] [address] [place] [address] Maya Goyal MD [address] [place] [address] Medication Refill Social History Tobacco [...] Sex Assigned at Male 09/17/2018 5:00 PM EXECUTIVE ASSISTANT Gender Identity Male 09/17/2018 5:00 PM EXECUTIVE ASSISTANT Sexual Orientation Straight 09/17/2018 5: 00 PM EXECUTIVE ASSISTANT COVID-19 Exposure Response Date Recorded In the last month, have you been in contact with someone who was confirmed or suspected to have Coronavirus / COVID-19? No / Unsure 11/17/2021 2:07 PM EXECUTIVE ASSISTANT documented as of this encounter Miscellaneous Notes * Telephone Encounter - Celestino Latham RN - 12/06/2021 6:42 PM CDT Prescription approved per [facility] Refill Protocol. documented in this encounter Plan [...] as of this encounter Care Teams Manufacturing Supervisor 2Nd Shift Relationship Specialty Start Date End Date Maya Goyal MD [address] [place] [address] PCP - General 05/03/04 11/14/22 No Ref-Primary, Physician PCP - General 11/15/22 Maya Goyal MD [address] [place] [address] Assigned PCP 06/27/12 10/17/23 Erlin Delcid MD [address] [place] [address] Assigned Surgical Provider 09/12/20 Mehdi Bass DPM [id number] [place] [address] [address] [place] [address] Assigned Musculoskeletal Provider 08/14/21 10/27/22 Kae Whipple [address] [place] [address] Assigned MTM Pharmacist 03/18/22 Maya Goyal MD [address] [place] [address] 200 [place] [address] Assigned Pain Medication Provider 10/02/22 03/23/23 Mehdi Bass DPM [address] [facility] [address] [place] [address] Assigned Surgical Provider 10/28/22 [facility] [address] [place] [address] Assigned PCP 10/18/23 documented as of this encounter
--- OUTSIDE RECORDS SUMMARY | 2024-07-03 14:24 | XMS_ITS | Encounter Summary ---
Author Organization [place] Address [address] [place] [address]. [place] [address] Care Team Providers Care Irradiated Fuel Handler Name Role Phone Maya Goyal MD Primary Care Provider [phone] Eva Mckenna RN Unavailable [phone] Maya Goyal MD Unavailable Maya Goyla MD Unavailable Mehdi Sen MD Unavailable [phone] Erlin Delcid MD Unavailable Elicia Bedoya [facility] Unavailable [phone] Kae Whipple [facility] Unavailable Mehdi Bass DPM Unavailable [phone] Kae Whipple [facility] Unavailable [phone] Maya Goyal MD Unavailable No Ref-Primary, Physician Primary Care Provider Mehdi Bass DPM Unavailable [phone] [facility] Unavailable Encounter Details Date Type Department Care Team (Late st Contact Info) Description 10/17/2010 [facility] Medical Advice [facility] [address] [place] [address] Maya Goyal MD [address] [place] [address] Social History Tobacco Use Types Packs/Day Years Used Date Smoking Tobacco: Every Day Cigarettes 0.5 20 Alcohol Use Standard Drinks/Week Comments Yes 0 (1 standard drink = 0.6 oz pur e alcohol) Social once every 3 months Sex and Gender Information Value Date Recorded Sex Assigned at Male 09/17/2018 5:00 PM GELATIN MAKER UTILITY Gender Identity Male 09/17/2018 5:00 PM GELATIN MAKER UTILITY Sexual Orientation Straight 09/17/2018 5: 00 PM GELATIN MAKER UTILITY documented as of this encounter Plan of Treatment Not on file documented as of this encounter Visit Diagnoses Not on filedocumented in this encounter Additional Health Concerns Infection Onset Date Last Indicated Resolved Time COVID-19 08/27/2020 08/27/2020 09/17/2020 11:4 0 PM GELATIN MAKER UTILITY documented as of this encounter Care Teams Irradiated Fuel Handler Relationship Specialty Start Date End Date Maya Goyal MD [address] [place] [address] PCP - General 05/03/04 11/14/22 Maya Goyal MD [address] [place] [address] PCP - Assigned PCP 10/22/09 11/26/18 No Ref-Primary, Physician PCP - General 11/15/22 Eva Mckenna RN Clinic Territory Sales Manager Primary Care - CC 02/19/18 Maya Goyal MD [address] [place] [address] Assigned PCP 06/27/12 10/17/23 Mehdi Sen MD [address] [place] [address] Assigned Musculoskeletal Provider 07/16/20 12/18/20 Erlin Delcid MD [address] [address] Assigned Surgical Provider 09/12/20 Elicia Bedoya, [facility] [address] [place] [address] 812 [place] [address] Pharmacist Pharmacist 11/09/20 12/06/20 Kae Whipple [facility] 303 [place] [address] Pharmacist Pharmacist 11/30/20 12/06/20 Mehdi Bass DPM [id number] [place] [address] Assigned Musculoskeletal Provider 08/14/21 10/27/22 Kae Whipple [facility] [address] [place] [address] Assigned MTM Pharmacist 03/18/22 Maya Goyal MD [address] [address] Assigned Pain Medication Provider 10/02/22 03/23/23 Mehdi Bass DPM [id number] [place] [address] [place] [address] Assigned Surgical Provider 10/28/22 [facility] 303 [place] [address] Assigned PCP 10/18/23 documented as of this encounter
--- OUTSIDE RECORDS SUMMARY | 2024-07-03 14:24 | XMS_ITS | Encounter Summary ---
Author Organization [place] Address [address] [place] [address]. [place] [address] Care Team Providers Care Author'S Agent Name Role Phone Maya Goyal MD Primary Care Provider [phone] Eva Mckenna RN Unavailable [phone] Myaa Goyal MD Unavailable Maya Goyal MD Unavailable Mehdi Sen MD Unavailable [phone] Erlin Delcid MD Unavailable [phone] Elicia Bedoya [facility] Unavailable [phone] Kae Whipple [facility] Unavailable [phone] Mehdi Bass DPM Unavailable [phone] Kae Whipple [facility] Unavailable [phone] Maya Goyal MD Unavailable No Ref-Primary, Physician Primary Care Provider Mehdi Bass DPM Unavailable [phone] [facility] Unavailable Encounter Details Date Type Department Care Team (Late st Contact Info) Description 08/26/2006 [facility] [address] [place] [address] Maya Goyal MD [address] [place] [address] Social History Tobacco Use Types Packs/Day Years Used Date Smoking Tobacco: Every Day Cigarettes 0.5 20 Alcohol Use Standard Drinks/Week Comments Yes 0 (1 standard drink = 0.6 oz pur e alcohol) Social once every 3 months Sex and Gender Information Value Date Recorded Sex Assigned at Male 09/17/2018 5:00 PM PUTTY GLAZER Gender Identity Male 09/17/2018 5:00 PM PUTTY GLAZER Sexual Orientation Straight 09/17/2018 5: 00 PM PUTTY GLAZER documented as of this encounter Plan of Treatment Not on file documented as of this encounter Visit Diagnoses Not on filedocumented in this encounter Additional Health Concerns Infection Onset Date Last Indicated Resolved Time COVID-19 08/27/2020 08/27/2020 09/17/2020 11:4 0 PM PUTTY GLAZER documented as of this encounter Care Teams Author'S Agent Relationship Specialty Start Date End Date Maya Goyal MD [address] [place] [address] PCP - General 05/03/04 11/14/22 Maya Goyal MD [address] [place] [address]2907 PCP - Assigned PCP 10/22/09 11/26/18 No Ref-Primary, Physician PCP - General 11/15/22 Eva Mckenna RN Clinic Sales Merchandiser Primary Care - CC 02/19/18 Maya Goyal MD [address] [place] [address] Assigned PCP 06/27/12 10/17/23 Mehdi Sen MD [address] [place] [address] Assigned Musculoskeletal Provider 07/16/20 12/18/20 Erlin Delcid MD [address] [address] Assigned Surgical Provider 09/12/20 Elicia Bedoya, [facility] [address] [place] [address] 812 [place] [address] Pharmacist Pharmacist 11/09/20 12/06/20 Kae Whipple [facility] 303 [place] [address] Pharmacist Pharmacist 11/30/20 12/06/20 Mehdi Bass DPM [id number] [place] [address] Assigned Musculoskeletal Provider 08/14/21 10/27/22 Kae Whipple [facility] [address] [place] [address] Assigned MTM Pharmacist 03/18/22 Maya Goyal MD [address] [address] Assigned Pain Medication Provider 10/02/22 03/23/23 Mehdi Bass DPM [id number] [place] [address] [place] [address] Assigned Surgical Provider 10/28/22 [facility] 303 [place] [address] Assigned PCP 10/18/23 documented as of this encounter
--- OUTSIDE RECORDS SUMMARY | 2024-07-03 14:24 | XMS_ITS | Encounter Summary ---
Author Organization [place] Address [address] [place] [address]. [place] [address] Care Team Providers Care Personnel Recruiter Name Role Phone Maya Goyal MD Primary Care Provider [phone] Eva Mckenna RN Unavailable [phone] Maya Goyal MD Unavailable Maya Goyal MD Unavailable Mehdi Sen MD Unavailable [phone] Erlin Delcid MD Unavailable [phone] Elicia Bedoya [facility] Unavailable [phone] Kae Whipple [facility] Unavailable Mehdi Bass DPM Unavailable [phone] Kae Whipple [facility] Unavailable [phone] Maya Goyal MD Unavailable No Ref-Primary, Physician Primary Care Provider Mehdi Bass DPM Unavailable [phone] [facility] Unavailable Encounter Details Date [...] Sex Assigned at Male 09/17/2018 5:00 PM TELECOMMUNICATIONS LINE INSTALLER Gender Identity Male 09/17/2018 5:00 PM TELECOMMUNICATIONS LINE INSTALLER Sexual Orientation Straight 09/17/2018 5: 00 PM TELECOMMUNICATIONS LINE INSTALLER documented as of this encounter Plan of Treatment Not on file documented as of this encounter Visit Diagnoses Not on filedocumented in this encounter Additional Health Concerns Infection Onset Date Last Indicated Resolved Time COVID-19 08/27/2020 08/27/2020 09/17/2020 11:4 0 PM TELECOMMUNICATIONS LINE INSTALLER Assessment Noted Time PHQ-9 Depression Total Score: 14 017 11:50 AM TELECOMMUNICATIONS LINE INSTALLER documented as of this encounter Care Teams Personnel Recruiter Relationship Specialty Start Date End Date Maya Goyal MD [address] [place] [id number] PCP - General 05/03/04 11/14/22 Maya Goyal MD [address] [place] [address] 688587 PCP - Assigned PCP 10/22/09 11/26/18 No Ref-Primary, Physician PCP - General 11/15/22 Eva Mckenna RN Clinic Stunt Person Primary Care - CC 02/19/18 Maya Goyal MD [address] [place] [address]44[address] Assigned PCP 06/27/12 10/17/23 Mehdi Sen MD [address] [place] [address] [id number] Assigned Musculoskeletal Provider 07/16/20 12/18/20 Erlin Delcid MD [address] [place] [address] Assigned Surgical Provider 09/12/20 Elicia Bedoya, [facility] [address] [facility] [address] [place] [address] Pharmacist Pharmacist 11/09/20 12/06/20 Kae Whipple [facility] [address] [place] [address] Pharmacist Pharmacist 11/30/20 12/06/20 Mehdi Bass DPM [id number] [employer] [address] [place] [address] Assigned Musculoskeletal Provider 08/14/21 10/27/22 Kae Whipple [facility] [address] [place] [address] Assigned MTM Pharmacist 03/18/22 Maya Goyal MD [address] [facility] 200 [place] [address] Assigned Pain Medication Provider 10/02/22 03/23/23 Mehdi Bass DPM [address] [address] [place] [address] Assigned Surgical Provider 10/28/22 [facility] [address] [place] [address] Assigned PCP 10/18/23 documented as of this encounter
--- OUTSIDE RECORDS SUMMARY | 2024-07-03 14:24 | XMS_ITS | Encounter Summary ---
Author Organization [place] Address [address] [place] [address] Care Team Providers Care Fruit Shipper Name Role Phone Maya Goyal MD Primary Care Provider [phone] Maya Goyal MD Unavailable Mehdi Sen MD Unavailable [phone] Erlin Delcid MD Unavailable Elicia Bedoya [facility] Unavailable [phone] Kae Whipple [facility] Unavailable Mehdi Bass DPM Unavailable [phone] Kae Whipple [facility] Unavailable Maya Goyal MD Unavailable No Ref-Primary, Physician Primary Care Provider Mehdi Bass DPM Unavailable [phone] [facility] Unavailable Reason for Visit * Reason Comments Medication Refill Encounter Details Date Type Department Care Team (Late st Contact Info) Description 03/22/2020 [facility] [address] [place] [address] Maya Goyal MD [address] [place] [address] Medication Refill Social History Tobacco [...] Sex Assigned at Male 09/17/2018 5:00 PM FOOD SAFETY MANAGER Gender Identity Male 09/17/2018 5:00 PM FOOD SAFETY MANAGER Sexual Orientation Straight 09/17/2018 5: 00 PM FOOD SAFETY MANAGER COVID-19 Exposure Response Date Recorded In the last month, have you been in contact with someone who was confirmed or suspected to have Coronavirus / COVID-19? No / Unsure 03/12/2020 11:08 AM CDT documented as of this encounter Miscellaneous Notes * Telephone Encounter - Leah Narvaez RPH - 03/23/2020 4:44 PM CDT Prescription approved per [facility] Refill Protocol. documented in this encounter Plan of Treatment Not on file documented as of this encounter Visit Diagnoses Diagnosis CKD (chronic kidney disease) stage 1, GFR 90 ml/min or greater Chronic kidney disease, Stage I Benign essential hypertension Essential hypertension, benign documented in this encounter Additional Health Concerns Infection Onset Date Last Indicated Resolved Time COVID-19 08/27/2020 08/27/2020 09/17/2020 11:4 0 PM FOOD SAFETY MANAGER Assessment Noted Time PHQ-9 Depression Total Score: 9 11/19/19 20 7:03 AM FOOD SAFETY MANAGER documented as of this encounter Care Teams Fruit Shipper Relationship Specialty Start Date End Date Maya Goyal MD [address] [address] PCP - General 05/03/04 11/14/22 No Ref-Primary, Physician PCP - General 11/15/22 Maya Goyal MD [address] [place] [address] Assigned PCP 06/27/12 10/17/23 Mehdi Sen MD [address] [place] [address] Assigned Musculoskeletal Provider 07/16/20 12/18/20 Erlin Delcid MD [address] [address] Assigned Surgical Provider 09/12/20 Elicia Bedoya [facility] [address] [facility] 812 [place] [address] Pharmacist Pharmacist 11/09/20 12/06/20 Kae Whipple [facility] [address] [place] [address] Pharmacist Pharmacist 11/30/20 12/06/20 [place] [address] [facility] [address] [place] [address] Assigned Musculoskeletal Provider 08/14/21 10/27/22 Kae Whipple [facility] [address] [place] [address] Assigned MTM Pharmacist 03/18/22 Maya Goyal MD [address] [place] [address] Assigned Pain Medication Provider 10/02/22 03/23/23 Mehdi Bass DPM [address] [facility] [address] [place], [place] 8[address] Assigned Surgical Provider 10/28/[address] 536367 Assigned PCP 10/18/23 documented as of this encounter
--- OUTSIDE RECORDS SUMMARY | 2024-07-03 14:24 | XMS_ITS | Encounter Summary ---
Author Organization [place] Address [address] [place] [address]. [place] [address] Care Team Providers Care Precision Layout Worker Name Role Phone Maya Goyal MD Primary Care Provider [phone] Primary Care Provider UnavailEva Brannon RN Unavailable [phone] Maya Goyal MD Unavailable Maya Goyal MD Unavailable Mehdi Sen MD Unavailable [phone] Erlin Delcid MD Unavailable [phone] Elicia Bedoya [facility] Unavailable [phone] Kae Whipple [facility] Unavailable [phone] Mehdi Bass DPM Unavailable [phone] Kae Whipple [facility] Unavailable [phone] Maya Goyal MD Unavailable No Ref-Primary, Physician Primary Care Provider Mehdi Bass DPM Unavailable [phone] [facility] Unavailable Encounter Details Date Type Department Care Team (Late st Contact Info) Description 12/15/2002 [place] [address] [place] [address] Maya Goyal MD [address] [facility] [address] [place] [address] ER ENC (Primary Dx) Social History Tobacco [...] Sex Assigned at Male 09/17/2018 5:[address] DEPARTMENT Gender Identity Male 09/17/2018 5:[address] DEPART[address] Sexual Orientation Straight 09/17/2018 5: [address] DEPARTMENT documented as of this encounter Progress Notes * 12/15/2002 11:59 PM [id number] 00:00 Emergency Department Encounter-[facility] TRACY BYRNE) [Entered: 00:00 Teacher Dancing (HIM)] : 56 CHIEF COMPLAINT: I was at work and a tow bar dropped on my arm. HISTORY OF PRESENT ILLNESS: Rafa Hickey is a 42-year-old white male who comes to us from [facility] [employer] where he was working out on the [place]. Apparently his friend pulled the tug away [...] right-handed. SOCIAL HISTORY: The patient has worked [employer] for the last eighteen years. REVIEW OF [...] related. _ TRACY BYRNE MD MT: Document: [id number] Electronically filed by Stella Paul 12/18 11:45 AM documented in this encounter Plan of Treatment Not on file documented as of this encounter Visit Diagnoses Diagnosis ER ENC- Primary documented in this encounter Additional Health Concerns Infection Onset Date Last Indicated Resolved Time COVID-19 08/27/2020 08/27/2020 09/17/2020 11:[address] DEPARTMENT documented as of this encounter Care Teams Precision Layout Worker Relationship Specialty Start Date End Date Maya Goyal MD [address] [place] [address] PCP - General 05/03/04 11/14/22 None PCP - General 12/01/02 05/02/04 Maya Goyal MD [address] [place], [place] [address] PCP - Assigned PCP 10/22/09 11/26/18 No Ref-Primary, Physician PCP - General 11/15/22 Eva Mckenna, RN Clinic Contract Project Manager Primary Care - CC 02/19/18 Maya Goyal MD [address] [facility] [address] [place], [place] [address] Assigned PCP 06/27/12 10/17/23 Mehdi Sen MD 9[address] [place], [place] [address] Assigned Musculoskeletal Provider 07/16/20 12/18/20 Erlin Delcid MD [address] 278635 Assigned Surgical Provider 09/12/20 Elicia Bedoya, [facility] [address] [place] [address] 812 [place], [place] [address] Pharmacist Pharmacist 11/09/20 12/06/20 Kae Whipple [facility] [address] [place], [place] [address] Pharmacist Pharmacist 11/30/20 12/06/20 Mehdi Bass DPM [address] [facility] [address] [place], [place] [address] Assigned Musculoskeletal Provider 08/14/21 10/27/22 Kae Whipple [facility] [address] [place], [place] [address] Assigned MTM Pharmacist 03/18/22 Maya Goyal MD [address] [facility] 200 [place] [address] Assigned Pain Medication Provider 10/02/22 03/23/23 Mehdi Bass DPM [address] [facility] [address] [place] [address] Assigned Surgical Provider 10/28/22 [facility] 303 [place] [address] Assigned PCP 10/18/23 documented as of this encounter
--- OUTSIDE RECORDS SUMMARY | 2024-07-03 14:24 | XMS_ITS | Encounter Summary ---
Author Organization [place] Address [address] [place] [address]. [place] [address] Care Team Providers Care Check Clerk Name Role Phone Maya Goyal MD Primary Care Provider [phone] Primary Care Provider UnavailEva Brannon RN Unavailable [phone] Maya Goyal MD Unavailable Maya Goyal MD Unavailable Mehdi Sen MD Unavailable [phone] Erlin Delcid MD Unavailable [phone] Elicia Bedoya [facility] Unavailable [phone] Kae Whipple [facility] Unavailable [phone] Mehdi Bass DPM Unavailable [phone] Kae Whipple [facility] Unavailable [phone] Maya Goyal MD Unavailable No Ref-Primary, Physician Primary Care Provider Mehdi Bass DPM Unavailable [phone] [facility] Unavailable Encounter Details Date Type Department Care Team (Late st Contact Info) Description 02/16/2003 [place] [address] [place] [address] Maya Goyal MD [address] [facility] 200 [place] [address] ER ENC (Primary Dx) Social History Tobacco [...] Sex Assigned at Male 09/17/2018 5:00 PM TITLE AGENT Gender Identity Male 09/17/2018 5:00 PM TITLE AGENT Sexual Orientation Straight 09/17/2018 5: 00 PM TITLE AGENT documented as of this encounter Progress Notes * 02/16/2003 11:59 PM CASSIE SYKES 00:00 Emergency Department Encounter-[facility] () [Ente red: 00:00 Service [place] ([facility])] CHIEF COMPLAINT: Ankle pain. 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 A rolling tool box rolled into his right medial ankle resulting in pain. He p resents now for evaluation. PAST MEDICAL HISTORY: Hypertension and hypercholesterolemia. CURRENT MED ICATIONS: Lotrel, Zocor and gemfibrozil. ALLERGIES: No known allergies. SOCIAL HISTORY: The [place] zavala works for [employer] as above. He is a one pack [...] Skin: Warm and dry and as above. [facility] DEPARTMENT COURSE AND TREATMENT: The patient was [...] 1. Rest, ice and elevation. 2. Ibuprofen [id number] prn. 3. Work restricti ons as a [...] COVID-19 08/27/2020 08/27/2020 09/17/2020 11:4 0 PM TITLE AGENT documented as of this encounter Care Teams Check Clerk Relationship Specialty Start Date End Date Maya Goyal MD [address] [place] [address] PCP - General 05/03/04 11/14/22 None PCP - General 12/01/02 05/02/04 Maya Goyal MD [address] [place] [address] PCP - Assigned PCP 10/22/09 11/26/18 No Ref-Primary, Physician PCP - General 11/15/22 Eva Mckenna RN Clinic County Court Judge Primary Care - CC 02/19/18 Maya Goyal MD [address] [place] [address] Assigned PCP 06/27/12 10/17/23 Mehdi Sen MD 909 [place] [address] Assigned Musculoskeletal Provider 07/16/20 12/18/20 Erlin Delcid MD [address] [address] Assigned Surgical Provider 09/12/20 Elicia Bedoya [facility] [address] [place] [address] 812 [place] [address] Pharmacist Pharmacist 11/09/20 12/06/20 Kae Whipple [facility] [address] [place] [address] Pharmacist Pharmacist 11/30/20 12/06/20 Mehdi Bass DPM [facility] [employer] [address] [address] Assigned Musculoskeletal Provider 08/14/21 10/27/22 Kae Whipple [facility] [address] [place] [address] Assigned MTM Pharmacist 03/18/22 Maya Goyal MD [address] [address] Assigned Pain Medication Provider 10/02/22 03/23/23 Mehdi Bass DPM [address] [facility] [address] [place] [address] Assigned Surgical Provider 10/28/[address] [address] Assigned PCP 10/18/23 documented as of this encounter
--- OUTSIDE RECORDS SUMMARY | 2024-07-03 14:24 | XMS_ITS | Encounter Summary ---
Author Organization [place] Address [address] [place] [address]. [place] [address] Care Team Providers Care Sidehand Name Role Phone Maya Goyal MD Primary Care Provider [phone] Maya Goyal MD Unavailable Mehdi Sen MD Unavailable [phone] Erlin Delcid MD Unavailable Elicia Bedoya [facility] Unavailable [phone] Kae Whipple [facility] Unavailable Mehdi Bass DPM Unavailable [phone] Kae Whipple [facility] Unavailable Maya Goyal MD Unavailable No Ref-Primary, Physician Primary Care Provider Mehdi Bsas DPM Unavailable [phone] [facility] Unavailable Reason for Visit * Reason Onset Date Comments Procedure 03/18/2019 Lumbar Epidural injection Encounter Details Date Type Department Care Team (Late st Contact Info) Description 03/18/2019 [facility] [place] [address] [facility] [address] [place] [address] [facility] ([facility]umbar Epidural injection ) Social [...] Sex Assigned at Male 09/17/2018 5:00 PM WEIGHING STATION OPERATOR Gender Identity Male 09/17/2018 5:00 PM WEIGHING STATION OPERATOR Sexual Orientation Straight 09/17/2018 5: 00 PM WEIGHING STATION OPERATOR documented as of this encounter Miscellaneous Notes * Telephone Encounter - Giovana Domínguez - 03/18/2019 3:41 PM CDT Pre-screening Questions for Radiology Injections: Injection to be done at which interventional clinic site? [facility] Instruct patient to arrive as directed prior to the scheduled appointment time: ?? [place]: 30 minutes before ?? [place] Eug[place]: 30 minutes before; if IV needed 1 [...] Jordyn for review ?? IF SCHEDULING IN [place] AND NEEDS A PA, IT IS OKAY TO SCHEDULE. [place] HANDLES THEIR OWN PA'S AFTER THE PATIENT IS SCHEDULED. PLEASE SCHEDULE AT LEAST 1 WEEK OUT SO A PA CAN BE OBTAINED. Any chance of ? NO If YES, do NOT schedule and route to pool servicer Is an stitch marker needed? No Patient has a drive home? (mandatory) YES: Informed Is patient taking any blood thinners (plavix, coumadin, jantoven, warfarin, heparin, pradaxa or dabigatran )? No If hold needed, do NOT schedule, route to pool servicer Is patient taking any aspirin products (includes Excedrin and Fiorinal)? No ?? If more than 325mg/day do NOT schedule; route to pool servicer ?? For CERVICAL procedures, hold all aspirin [...] YES, do NOT schedule and route to pool servicer Are you able to get on and off an exam table with minimal or no assistance? Yes If NO, do NOT schedule and route to pool servicer Are you able to roll over and lay on your stomach with minimal or no assistance? Yes If NO, do NOT schedule and route to pool servicer Any allergies to contrast dye, iodine, shellfish, or numbing and steroid medications? No If YES, route to pool servicer AND add allergy information to appointment notes [...] years? Yes ?? Was MRI done at [facility]? Yes ?? If not, where was it done? N/A ?? If MRI was not done at [facility], [facility] or [facility] Imaging do NOT schedule and [...] the patient have any questions? TIM Domínguez [facility] documented in this encounter Plan of Treatment Not on file documented as of this encounter Visit Diagnoses Not on filedocumented in this encounter Additional Health Concerns Infection Onset Date Last Indicated Resolved Time COVID-19 08/27/2020 08/27/2020 09/17/2020 11:4 0 PM WEIGHING STATION OPERATOR Assessment Noted Time PHQ-9 Depression Total Score: 4 09/23/20 18 2:33 PM WEIGHING STATION OPERATOR documented as of this encounter Care Teams Sidehand Relationship Specialty Start Date End Date Maya Goyal MD [address] [place] [address] PCP - General 05/03/04 11/14/22 No Ref-Primary, Physician PCP - General 11/15/22 Maya Goyal MD [address] [place] [address] Assigned PCP 06/27/12 10/17/23 Mehdi Sen MD 909 [place] [address] Assigned Musculoskeletal Provider 07/16/20 12/18/20 Erlin Delcid MD [address] [address] Assigned Surgical Provider 09/12/20 Elicia Bedoya [facility] [address] [place] [address] 812 [place] [address] Pharmacist Pharmacist 11/09/20 12/06/20 Kae Whipple [facility] [address] [place] [address] Pharmacist Pharmacist 11/30/20 12/06/20 [place] [address] [facility] [address] [place], [place] [address] Assigned Musculoskeletal Provider 08/14/21 10/27/22 Kae Whipple [facility] [address] [place] [address] Assigned MTM Pharmacist 03/18/22 Maya Goyal MD [address] [facility] 200 [place] [address] Assigned Pain Medication Provider 10/02/22 03/23/23 [place] [address] [facility] [address] [place], [place] [address] Assigned Surgical Provider 10/28/22 [facility] 303 [place], [place] [address] Assigned PCP 10/18/23 documented as of this encounter
--- OUTSIDE RECORDS SUMMARY | 2024-07-03 14:24 | XMS_ITS | Encounter Summary ---
Author Organization [place] Address [address] [place] [address] Care Team Providers Care Auto Mechanic Supervisor Name Role Phone Maya Goyal MD Primary Care Provider [phone] Maya Goyal MD Unavailable Mehdi Sen MD Unavailable [phone] Erlin Delcid MD Unavailable [phone] Elicia Bedoya [facility] Unavailable Kae Whipple [facility] Unavailable [phone] Mehdi Bass DPM Unavailable [phone] Kae Whipple [facility] Unavailable [phone] Maya Goyal MD Unavailable No Ref-Primary, Physician Primary Care Provider Mehdi Bass DPM Unavailable [phone] [facility] Unavailable Encounter Details Date Type Department Care Team (Late st Contact Info) Description 03/14/2019 Documentation Only [facility] [address] [place] [address] Maya Goyal MD [address] [place] [address] Essential hypertension, benign (Primary Dx); [...] Assigned at Male 09/17/2018 5:00 PM SOFTWARE DESIGN ENGINEER Gender Identity Male 09/17/2018 5:00 PM SOFTWARE DESIGN ENGINEER Sexual Orientation Straight 09/17/2018 5: 00 PM SOFTWARE DESIGN ENGINEER documented as of this encounter Plan of Treatment Not on file documented as of this encounter Results * (ABNORMAL) Albumin Random Urine Quantitative with Creat Ratio (03/14/2019 9:17 AM CDT) Creatinine Urine 239 mg/dL 03/14/2019 8:18 PM CDT [facility] Albumin Urine mg/L 162 mg/L 03/14/2019 8:41 PM CDT [facility] Albumin Urine mg/g Cr 67.78(H) 0 - 17 mg/g Cr 03/14/2019 8:41 PM CDT [facility] Urine specimen (specimen) 03/14/2019 9:17 AM CDT 03/14/2019 9:18 AM CDT Maya Goyal MD LAB - URINE ORDERABL ES [facility] [address] [place] [address] * (ABNORMAL) Hemoglobin A1c (03/14/2019 9:16 AM CDT) Hemoglobin A1C 7.0(H) 0 - 5.6 % 03/14/2019 9:38 AM CDT [facility] Comment: Normal <5.7% Prediabetes 5.7-6.4% ??Diabetes 6.5% or higher - adopted from ADA consensus guidelines. Blood specimen (specimen) 03/14/2019 9:16 AM CDT 03/14/2019 9:17 AM CDT Maya Goyal MD LAB - BLOOD ORDERABL ES [facility] [address] [facility] [address] [place] [address] * (ABNORMAL) Lipid panel reflex to direct LDL Fasting (03/14/2019 9:16 AM CDT) Cholesterol 188 <200 mg/dL 03/14/2019 6:29 PM CDT [facility] Triglycerides 268(H) <150 mg/dL 03/14/2019 6:29 PM CDT [facility] Comment: Borderline high: ??150-199 mg/dl High: ? 200-499 mg/dl Very high: ? >499 mg/dl Fasting specimen HDL Cholesterol 32(L) >39 mg/dL 9 6:36 PM CDT [facility] LDL Cholesterol Calculated 102(H) <100 mg/dL 03/14/2019 6:36 PM CDT [facility] Comment: Above desirable: ??100-129 mg/dl Borderline High: ??130-159 mg/dL High: ? 160-189 mg/dL Very high: ? >189 mg/dl Non HDL Cholesterol 156(H) <130 mg/dL 03/14/2019 6:36 PM CDT [facility] Comment: Above Desirable: ??130-159 mg/dl Borderline high: ??160-189 mg/dl High: ? 190-219 mg/dl Very high: ? >219 mg/dl Blood specimen (specimen) 03/14/2019 9:16 AM CDT 03/14/2019 9:17 AM CDT Maya Goyal MD LAB - BLOOD ORDERABL ES [facility] [address] [place] [address] * (ABNORMAL) Basic metabolic panel (03/14/2019 9:16 AM CDT) Sodium 140 133 - 144 mmol/L 03/14/2019 6:09 PM CDT [facility] Potassium 4.5 3.4 - 5.3 mmol/L 03/14/2019 6:09 PM CDT [facility] Chloride 103 94 - 109 mmol/L 03/14/2019 6:09 PM CDT [facility] Carbon Dioxide 28 20 - 32 mmol/L 03/14/2019 6:29 PM CDT [facility] Anion Gap 9 3 - 14 mmol/L 03/14/2019 6:29 PM CDT [facility] Glucose 155(H) 70 - 99 mg/dL 03/14/2019 6:29 PM CDT [facility] Comment:Fasting specimen Urea Nitrogen 11 7 - 30 mg/dL 03/14/2019 6:29 PM T [facility] Creatinine 0.79 0.66 - 1.25 mg/dL 03/14/2019 6:29 PM CDT [facility] GFR Estimate >90 >60 mL/min/{1 .73_m2} 03/14/2019 6:29 PM CDT [facility] Comment: Non GFR Calc Starting 09/10/2018, serum creatinine based estimated GFR (eGFR) will be calculated using the Chronic Kidney Disease Epidemiology Collaboration (CKD-EPI) equation. GFR Estimate If Black >90 >60 mL/min/{1 .73_m2} 03/14/2019 6:29 PM CDT [facility] Comment: GFR Calc Starting 09/10/2018, serum creatinine based estimated GFR (eGFR) will be calculated using the Chronic Kidney Disease Epidemiology Collaboration (CKD-EPI) equation. Calcium 9.3 8.5 - 10.1 mg/dL 03/14/2019 6:29 PM CDT [facility] Blood specimen (specimen) 03/14/2019 9:16 AM CDT 03/14/2019 9:17 AM CDT Maya Goyal MD LAB - BLOOD ORDERABL ES [facility] [address] [place] [address] documented in this encounter Visit Diagnoses Diagnosis Essential hypertension, benign- Primary Hyperlipidemia LDL goal <130 Other and unspecified hyperlipidemia Proteinuria, unspecified type Abnormal blood sugar Other abnormal glucose documented in this encounter Additional Health Concerns Infection Onset Date Last Indicated Resolved Time COVID-19 08/27/2020 08/27/2020 09/17/2020 11:4 0 PM SOFTWARE DESIGN ENGINEER Assessment Noted Time PHQ-9 Depression Total Score: 4 09/23/20 18 2:33 PM SOFTWARE DESIGN ENGINEER documented as of this encounter Care Teams Auto Mechanic Supervisor Relationship Specialty Start Date End Date Maya Goyal MD [address] [place] [address] PCP - General 05/03/04 11/14/22 No Ref-Primary, Physician PCP - General 11/15/22 Maya Goyal MD [address] [place] [address] Assigned PCP 06/27/12 10/17/23 Mehdi Sen MD 9 [place] [address] Assigned Musculoskeletal Provider 07/16/20 12/18/20 Erlin Delcid MD [address] [address] Assigned Surgical Provider 09/12/20 Elicia Bedoya [facility] [address] [facility] [address] [place] [address] Pharmacist Pharmacist 11/09/20 12/06/20 Kae Whipple [facility] [address] [place] [address] Pharmacist Pharmacist 11/30/20 12/06/20 Mehdi Bass DPM [id number] [place] [address] [address] [place] [address] Assigned Musculoskeletal Provider 08/14/21 10/27/22 Kae Whipple [facility] [address] [place] [address] Assigned MTM Pharmacist 03/18/22 Maya Goyal MD [address] [facility] 200 [place] [address] Assigned Pain Medication Provider 10/02/22 03/23/23 Mehdi Bass DPM [address] [facility] [address] [place] [address] Assigned Surgical Provider 10/28/22 [facility] 303 [place] [address] Assigned PCP 10/18/23 documented as of this encounter
--- OUTSIDE RECORDS SUMMARY | 2024-07-03 14:24 | XMS_ITS | Encounter Summary ---
Author Organization [place] Address [address] [place] [address]. [place] [address] Care Team Providers Care Machine Cage Maker Name Role Phone Maya Goyal MD Primary Care Provider [phone] Maya Goyal MD Unavailable Mehdi Sen MD Unavailable [phone] Erlni Delcid MD Unavailable [phone] Elicia Bedoya [facility] Unavailable [phone] Kae Whipple [facility] Unavailable [phone] Mehdi Bass DPM Unavailable [phone] Kae Whipple [facility] Unavailable [phone] Maya Goyal MD Unavailable No Ref-Primary, Physician Primary Care Provider Mehdi Bass DPM Unavailable [phone] [facility] Unavailable Reason for Visit * Reason Onset Date Comments Referral 05/02/2019 New Eval Encounter Details Date Type Department Care Team (Late st Contact Info) Description 05/02/2019 [facility] Pain Management [place] [id number] [facility] [address] [place], [place] [id number] [facility] Ref[facility] (New Eval ) Social History Tobacco [...] Sex Assigned at Male 09/17/2018 5:00 PM COMPENSATION DIRECTOR Gender Identity Male 09/17/2018 5:00 PM COMPENSATION DIRECTOR Sexual Orientation Straight 09/17/2018 5: 00 PM COMPENSATION DIRECTOR documented as of this encounter Miscellaneous Notes * Telephone Encounter - Stephanie Rock - 05/02/2019 2:18 PM CDT Referral received from Marli Velasco NP at [facility] for new patient evaluation andmanagement. Diagnosis of Lumbar DDD. Patient previously seen by Jenn Gaspar on 12/19/18 -- can schedule a follow up. Stephanie Rock Brick Dropper [facility] documented in this encounter Plan of Treatment Not on file documented as of this encounter Visit Diagnoses Not on filedocumented in this encounter Additional Health Concerns Infection Onset Date Last Indicated Resolved Time COVID-19 08/27/2020 08/27/2020 09/17/2020 11:4 0 PM COMPENSATION DIRECTOR Assessment Noted Time PHQ-9 Depression Total Score: 4 09/23/20 18 2:33 PM COMPENSATION DIRECTOR documented as of this encounter Care Teams Machine Cage Maker Relationship Specialty Start Date End Date Maya Goyal MD [address] [place] [address] PCP - General 05/03/04 11/14/22 No Ref-Primary, Physician PCP - General 11/15/22 Maya Goyal MD [address] [place] [address] Assigned PCP 06/27/12 10/17/23 Mehdi Sen MD [address] [place] [address] Assigned Musculoskeletal Provider 07/16/20 12/18/20 Erlin Delcid MD [address] [facility] 500 [place] [address] Assigned Surgical Provider 09/12/20 Elicia Bedoya, [facility] [address] [facility] [address] [place] [address] Pharmacist Pharmacist 11/09/20 12/06/20 Kae Whipple [facility] [address] [place] [address] Pharmacist Pharmacist 11/30/20 12/06/20 Mehdi aBss DPM [address] [employer] [address] [place] [address] Assigned Musculoskeletal Provider 08/14/21 10/27/22 Kae Whipple [facility] [address] [place], [place] [address] Assigned MTM Pharmacist 03/18/22 Maya Goyal MD [address] [facility] 200 [place] [address] Assigned Pain Medication Provider 10/02/22 03/23/23 Mehdi Bass DPM [address] [employer] [address] [place] [address] Assigned Surgical Provider 10/28/22 [facility] [address] [address] Assigned PCP 10/18/23 documented as of this encounter
--- OUTSIDE RECORDS SUMMARY | 2024-07-03 14:24 | XMS_ITS | Encounter Summary ---
Author Organization [facility] Address [address] [place] [address]. [place] [address] Care Team Providers Care Financial Report Service Sales Agent Name Role Phone Maya Goyal MD Primary Care Provider [phone] Eva Mckenna RN Unavailable [phone] Maya Goyal MD Unavailable Maya Goyal MD Unavailable Mehdi Sen MD Unavailable [phone] Erlin Delcid MD Unavailable [phone] Elicia Bedoya [facility] Unavailable [phone] Kae Whipple [facility] Unavailable [phone] Mehdi Bass DPM Unavailable [phone] Kae Whipple [facility] Unavailable [phone] Maya Goyal MD Unavailable No Ref-Primary, Physician Primary Care Provider Mehdi Bass DPM Unavailable [phone] [facility] Unavailable Encounter Details Date Type Department Care Team (Late st Contact Info) Description 08/29/2010 [facility] [address] [place] [address] Maya Goyal MD [address] [place] [address] BENIGN HYPERTENSION (Primary Dx) Social History Tobacco Use Types Packs/Day Years Used Date Smoking Tobacco: Every Day Cigarettes 0.5 20 Alcohol Use Standard Drinks/Week Comments Yes 0 (1 standard drink = 0.6 oz pur e alcohol) Social once every 3 months Sex and Gender Information Value Date Recorded Sex Assigned at Male 09/17/2018 5:00 PM ROTARY DUMP OPERATOR Gender Identity Male 09/17/2018 5:00 PM ROTARY DUMP OPERATOR Sexual Orientation Straight 09/17/2018 5: 00 PM ROTARY DUMP OPERATOR documented as of this encounter Plan of Treatment Not on file documented as of this encounter Visit Diagnoses Diagnosis BENIGN HYPERTENSION- Primary Essential hypertension, benign documented in this encounter Additional Health Concerns Infection Onset Date Last Indicated Resolved Time COVID-19 08/27/2020 08/27/2020 09/17/2020 11:4 0 PM ROTARY DUMP OPERATOR documented as of this encounter Care Teams Financial Report Service Sales Agent Relationship Specialty Start Date End Date Maya Goyal MD [address] [place] [address] PCP - General 05/03/04 11/14/22 Maya Goyal MD [address] [place] [address] PCP - Assigned PCP 10/22/09 11/26/18 No Ref-Primary, Physician PCP - General 11/15/22 Eva Mckenna RN Clinic Mattress Finisher Primary Care - CC 02/19/18 Maya Goyal MD [address] [place] [address] Assigned PCP 06/27/12 10/17/23 Mehdi Sen MD [address] [place] [address] Assigned Musculoskeletal Provider 07/16/20 12/18/20 Erlin Delcid MD [address] [address] Assigned Surgical Provider 09/12/20 Elicia Bedoya, [facility] [address] [place] [address] [address] [place] [address] Pharmacist Pharmacist 11/09/20 12/06/20 Kae Whipple [facility] [address] [place] [address] Pharmacist Pharmacist 11/30/20 12/06/20 Mehdi Bass DPM [facility] [address] [address] Assigned Musculoskeletal Provider 08/14/21 10/27/22 Kae Whipple [facility] [address] [place] [address] Assigned MTM Pharmacist 03/18/22 Maya Goyal MD [address] [place] [address] Assigned Pain Medication Provider 10/02/22 03/23/23 Mehdi Bass DPM [facility] [address] [place] [address] Assigned Surgical Provider 10/28/22 [facility] [address] [place] [address] Assigned PCP 10/18/23 documented as of this encounter
--- OUTSIDE RECORDS SUMMARY | 2024-07-03 14:24 | XMS_ITS | Encounter Summary ---
Author Organization [facility] Address [address] [place] [address]. [place] [address] Care Team Providers Care Architectural Inspector Name Role Phone Maya Goyal MD Primary Care Provider [phone] Eva Mckenna RN Unavailable [phone] Maya Goyal MD Unavailable Maya Goyal MD Unavailable Mehdi Sen MD Unavailable [phone] Erlin Delcid MD Unavailable Elicia Bedoya [facility] Unavailable [phone] Kae Whipple [facility] Unavailable Mehdi Bass DPM Unavailable [phone] Kae Whipple [facility] Unavailable [phone] Maya Goyal MD Unavailable No Ref-Primary, Physician Primary Care Provider Mehdi Bass DPM Unavailable [phone] [facility] Unavailable Encounter Details Date Type Department Care Team (Late st Contact Info) Description 12/13/2010 [facility] Adv[facility] [address] [place] [address] Maya Goyal MD [address] [place] [address] Social History Tobacco Use Types Packs/Day Years Used Date Smoking Tobacco: Former Cigarettes 0.5 20 0 12/01/1990 - 12/01/2010 Smokeless Tobacco: Never Alcohol Use Standard Drinks/Week Comments Yes 0 (1 standard drink = 0.6 oz pur e alcohol) Social once every 3 months Sex and Gender Information Value Date Recorded Sex Assigned at Male 09/17/2018 5:00 PM ROCK MASON APPRENTICE Gender Identity Male 09/17/2018 5:00 PM ROCK MASON APPRENTICE Sexual Orientation Straight 09/17/2018 5: 00 PM ROCK MASON APPRENTICE documented as of this encounter Plan of Treatment Not on file documented as of this encounter Visit Diagnoses Not on filedocumented in this encounter Additional Health Concerns Infection Onset Date Last Indicated Resolved Time COVID-19 08/27/2020 08/27/2020 09/17/2020 11:4 0 PM ROCK MASON APPRENTICE documented as of this encounter Care Teams Architectural Inspector Relationship Specialty Start Date End Date Maya Goyal MD [address] [place] [address] PCP - General 05/03/04 11/14/22 Maya Goyal MD [address] [place] [address] PCP - Assigned PCP 10/22/09 11/26/18 No Ref-Primary, Physician PCP - General 11/15/22 Eva Mckenna RN Clinic Christian Counselor Primary Care - CC 02/19/18 Maya Goyal MD [address] [place] [address] Assigned PCP 06/27/12 10/17/23 Mehdi Sen MD [address] [place] [address] Assigned Musculoskeletal Provider 07/16/20 12/18/20 Erlin Delcid MD [address] [address] Assigned Surgical Provider 09/12/20 Elicia Bedoya [facility] [address] [place] [address] [address] [place] [address] Pharmacist Pharmacist 11/09/20 12/06/20 Kae Whipple [facility] [address] [place] [address] Pharmacist Pharmacist 11/30/20 12/06/20 [place] [address] [address] Assigned Musculoskeletal Provider 08/14/21 10/27/22 Kae Whipple [facility] [address] [place] [address] Assigned MTM Pharmacist 03/18/22 Maya Goyal MD [address] [place] [address] Assigned Pain Medication Provider 10/02/22 03/23/23 Mehdi Bass DPM [facility] [address] [address] Assigned Surgical Provider 10/28/22 [facility] [address] [place] [address] Assigned PCP 10/18/23 documented as of this encounter
--- OUTSIDE RECORDS SUMMARY | 2024-07-03 14:24 | XMS_ITS | Encounter Summary ---
Author Organization [facility] Address [address] [place] [address]. [place] [address] Care Team Providers Care Hospital Laboratory Technician Name Role Phone Maya Goyal MD Primary Care Provider [phone] Primary Care Provider UnavailEva Brannon RN Unavailable [phone] Maya Goyal MD Unavailable Maya Goyal MD Unavailable Mehdi Sen MD Unavailable [phone] Erlin Delcid MD Unavailable [phone] Elicia Bedoya [facility] Unavailable [phone] Kae Whipple [facility] Unavailable [phone] Mehdi Bass DPM Unavailable [phone] Kae Whipple [facility] Unavailable [phone] Maya Goyal MD Unavailable No Ref-Primary, Physician Primary Care Provider Mehdi Bass DPM Unavailable [phone] [facility] Unavailable Encounter Details Date Type Department Care Team (Late st Contact Info) Description 01/25/2003 [place] [address] [place] [address] Maya Goyal MD [address] [facility] [address] [place] [address] ER ENCOUNTER (Primary Dx) Social History Tobacco [...] Sex Assigned at Male 09/17/2018 5:00 PM MEDICAL PRACTITIONERS Gender Identity Male 09/17/2018 5:00 PM [employer]ICAL PRACTITIONERS Sexual Orientation Straight 09/17/2018 5: 00 PM MEDICAL PRACTITIONERS documented as of this encounter Progress Notes * 01/25/2003 11:59 PM CDTAddended by: CAMERON MURRY on: 02/03/2003,11:27 AM Modules accepted: Progress Notes 00: 00 Emergency Department Encounter-EDWARD ERVIN () [Entered: 00:00 Transcri ption ([facility])] : 56 PRIMARY MD: Maya Goyal [...] No known d rug allergies. SOCIAL HISTORY: [place] [employer]. He is supposed to work tonight. He [...] re-evaluation. [id number] EDWARD DICKINSON MD [place]: Document: [id number] [place], [place] Name: CASSIE RIVAS EMERGENCY ROOM ENCOUNTER Page 2 of 2 LCN: JOHNNA DSC: [place], [place] Name: MR#: : Admit Date: CASSIE RIVAS -[id number] 01/25/2003 Doctor: EDWARD DICKINSON MD EMERGENCY ROOM ENCOUNTER Page 1 of 2 Electronically filed by Cameron Murry 02/03/2003 11:27 AM documented in this encounter Plan of Treatment Not on file documented as of this encounter Visit Diagnoses Diagnosis ER ENCOUNTER- Primary documented in this encounter Additional Health Concerns Infection Onset Date Last Indicated Resolved Time COVID-19 08/27/2020 08/27/2020 09/17/2020 11:4 0 PM MEDICAL PRACTITIONERS documented as of this encounter Care Teams Hospital Laboratory Technician Relationship Specialty Start Date End Date Maya Goyal MD [address] [place] [address] PCP - General 05/03/04 11/14/22 None PCP - General 12/01/02 05/02/04 Maya Goyal MD [address] [place] [address] PCP - Assigned PCP 10/22/09 11/26/18 No Ref-Primary, Physician PCP - General 11/15/22 Eva Mckenna RN Clinic Lawn Service Worker Primary Care - CC 02/19/18 Maya Goyal MD [address] [place] [address] Assigned PCP 06/27/12 10/17/23 Mehdi Sen MD [address] [place], [place] [address]13[address] Assigned Musculoskeletal Provider 07/16/20 12/18/20 Erlin Delcid MD [address] [address] Assigned Surgical Provider 09/12/20 Elicia Bedoya [facility] [address] [place] [address] 812 [place] [address] Pharmacist Pharmacist 11/09/20 12/06/20 Kae Whipple [facility] [address] [place] [address] Pharmacist Pharmacist 11/30/20 12/06/20 Mehdi Bass DPM [id number] [place] [address] [address] [place] [address] Assigned Musculoskeletal Provider 08/14/21 10/27/22 Kae Whipple [facility] [address] [place] [address] Assigned MTM Pharmacist 03/18/22 Maya Goyal MD [address] [place] [address] [address] [place] [address] Assigned Pain Medication Provider 10/02/22 03/23/23 Mehdi Bass DPM [id number] [place] [address] [place] [address] Assigned Surgical Provider 10/28/22 [facility] [address] [place] [address] Assigned PCP 10/18/23 documented as of this encounter
--- OUTSIDE RECORDS SUMMARY | 2024-07-03 14:24 | XMS_ITS | Encounter Summary ---
Author Organization [facility] Address [address] [place] [address]. [place] [address] Care Team Providers Care Wood Pole Treater Name Role Phone Maya Goyal MD Primary Care Provider [phone] Primary Care Provider UnavailEva Brannon RN Unavailable [phone] Maya Goyal MD Unavailable Maya Goyal MD Unavailable Mehdi Sen MD Unavailable [phone] Erlin Delcid MD Unavailable [phone] Elicia Bedoya [facility] Unavailable [phone] Kae Whipple [facility] Unavailable [phone] Mehdi Bass DPM Unavailable [phone] Kae Whipple [facility] Unavailable [phone] Maya oGyal MD Unavailable No Ref-Primary, Physician Primary Care Provider Mehdi Bass DPM Unavailable [phone] [facility] Unavailable Encounter Details Date Type Department Care Team (Late st Contact Info) Description 03/10/[address] [address] Jonathan Casillas MD XXX RETIRED XXX [address] [place] [id number] Social History Tobacco Use Types Packs/Day Years Used Date Smoking Tobacco: Never Assessed Sex and Gender Information Value Date Recorded Sex Assigned at Male 09/17/2018 5:00 PM RECRUITER SPECIALIST Gender Identity Male 09/17/2018 5:00 PM RECRUITER SPECIALIST Sexual Orientation Straight 09/17/2018 5: 00 PM RECRUITER SPECIALIST documented as of this encounter Plan of Treatment Not on file documented as of this encounter Visit Diagnoses Not on filedocumented in this encounter Additional Health Concerns Infection Onset Date Last Indicated Resolved Time COVID-19 08/27/2020 08/27/2020 09/17/2020 11:4 0 PM RECRUITER SPECIALIST documented as of this encounter Care Teams Wood Pole Treater Relationship Specialty Start Date End Date Maya Goyal MD [address] [place] [address] PCP - General 05/03/04 11/14/22 None PCP - General 12/01/02 05/02/04 Maya Goyal MD [address] [place] [address] PCP - Assigned PCP 10/22/09 11/26/18 No Ref-Primary, Physician PCP - General 11/15/22 Eva Mckenna RN Clinic Human Resources Trainer Primary Care - CC 02/19/18 Maya Goyal MD [address] [place] [address] Assigned PCP 06/27/12 10/17/23 Mehdi Sen MD [address] [place] [address] Assigned Musculoskeletal Provider 07/16/20 12/18/20 Erlin Delcid MD [address] [address] Assigned Surgical Provider 09/12/20 Elicia Bedoya, [facility] [address] [place] [address] [place] [address] Pharmacist Pharmacist 11/09/20 12/06/20 Kae Whipple [facility] [address] [place], [place] [address] Pharmacist Pharmacist 11/30/20 12/06/20 [place] [address] [address] Assigned Musculoskeletal Provider 08/14/21 10/27/22 Kae Whipple [facility] [address] [place], [place] 67[address] Assigned MTM Pharmacist 03/18/22 Maya Goyal MD [address] [address] Assigned Pain Medication Provider 10/02/22 03/23/23 [place] [address] [place], [place] 432637 Assigned Surgical Provider 10/28/[address] [facility] [address] [place] [address] Assigned PCP 10/18/23 documented as of this encounter
--- OUTSIDE RECORDS SUMMARY | 2024-07-03 14:25 | XMS_ITS ---
Author Organization [facility] Address [address] [place] [address] [address] [place] [address] Care Team Providers Care Senior Research Manager Name Role Phone Caryl Shi Primary Care Provider Karlo Hewitt Unavailable [phone] Catia Swift MD Unavailable Unavailable Jose Armando, Michael Unavailable [phone] REASON FOR VISIT bridge Medications Medication SIG (Take, Route, Frequency, Duration) Notes Start Date End Date Status oxyCODONE HCl 5 MG 1 tablet as needed Orally every 8-12 hours (max #3/day, ) for 21 days Low back pain, unspecified M54.50, G89.29 PRINTED 06/17/2024 Active Encounters Encounter Location Date Provider Diagnosis [facility] [address] [place] [address] [address] [place] [address] 06/17/2024 Michael Suárez Other chronic pain G89.29 [...] Provider Name:Michael Suárez , 07/07/2024 11:45:00 AM, [address], [place], [address], Progress Notes * Rafa RIVAS JrDOB: [birth year] (64 yo M)Acc No.[id number]:06/17/2024 Patient:?Rafa RIVAS Jr :1960???Age:64 Y???Sex:Male Phone: Address:[address], [place] [address] * Refills? Refill oxyCODONE HCl Tablet, 5 MG, Orally, 49, 1 tablet as needed, every 8-12 hours (max #3/day, ), 21 days, Refills=0 * true * Date:? Generated for Andi fields/Mona/eTransmitting on:?07/03/2024 02:25 PM CDT
--- OUTSIDE RECORDS SUMMARY | 2024-07-03 14:25 | XMS_ITS | Clinical Summary ---
Author Organization [facility] Address [place], [place] [address] Care Team Providers Care Sensitizer Name Role Phone Sarahi Roche RN Unavailable [phone] Caryl Shi DO Primary Care Provider [phone] Allergies No known active allergies Medications Medication [...] be used to read blood sugars per water gas operator's directions. Change each sensor every 14 days 6 Each 12 2023 Active FreeStyle Susanna 2 ReaderIndications :Type 2 diabetes mellitus with stage 1 chronic kidney disease, with long-term current use of insulin (HC) To be used to read blood sugars per water gas operator's directions. 1 Each 2023 Active rosuvastatin (CRESTOR) 10 mg tabletIndications :Hyperlipidemia LDL goal <100 Take 1 Tablet (10 mg) by mouth at bedtime. 90 Tablet 3 08/15/2023 Active UltiCare Pen Needle 31 gauge x 16Indications: Type 2 diabetes mellitus with stage 1 [...] be used to read blood sugars per water gas operator's directions. 6 Each 3 04/02/2024 Active DULoxetine [...] mouth once daily. 90 Tablet 05/05/2024 Active magnesium oxide (MAG-OX 400) 400 [...] times daily. 270 Capsule 2 06/12/2024 Active DULoxetine (CYMBALTA) 30 mg Delayed-release capsuleIndication s:Mild episode of recurrent major depressive disorder (HC) Take 1 Capsule (30 mg) by mouth once daily. Take with 60 mg capsule for 90 mg total per day. 90 Capsule 1 07/01/2024 Active gabapentin (NEURONTIN) 300 mg capsuleIndication s:Diabetic [...] 06/10/20 24 Discontinu ed(Reorder (E-cancel not sent)) DULoxetine (CYMBALTA) 30 mg Delayed-release capsuleIndication s:Mild episode of recurrent major depressive disorder (HC) Take 1 Capsule (30 mg) by mouth once daily. Take with 60 mg capsule for 90 mg total per day. 90 Capsule 05/05/2024 07/01/20 24 Discontinu ed(*Availa bility/For mulary change/Cos t of medication ) Active Problems Problem Noted Date Diagnosed Date [...] Controlled substance agreement signed 05/02/2022 Overview (05/02/2022): [facility]. Symone Flores CMA 10:37 AM [...] Encounters Date Type Department Care Team Description 06/29/2024 Travel 06/27/2024 9:10 AM CDT Office Visit [facility] [address] [place] [address] Caryl Shi, DO Foot Problem (Sores on 7/10 toes, for 1 week. ) 06/27/2024 Orders Only [facility] [address] [place] [address] Tana Ambrosio NP <No scans attached> 06/27/[address] [address] Caryl Shi, Refill Request (Cymbalta) 06/27/2024 Travel 06/10/[address] [address] Caryl Shi, Refill Request (Tresiba Flextouch 200 units/ml sopn ) 06/09/2024 11:45 AM CDT Ancillary Procedure [address] [address] 06/09/2024 Travel 05/29/2024 2:00 PM CDT Office Visit [address] [address] Song Gray, [facility] Visit 05/29/2024 Travel 05/21/2024 11:15 AM CDT Office Visit [address] [address] Caryl Shi, ER Follow up (Fecal compaction, nfld er. /Struggling with sleep ) 05/21/2024 Travel 05/14/[address] [address] Caryl Shi, Refill Request (METFORMIN) 05/08/[address] [address] Caryl Shi, Prior Authorization (insulin degludec, U-200, (Tresiba FlexTouch U-200) 200 unit/mL (3 mL) pen - PA NOT NEEDED) 05/06/[address] [address] Caryl Shi DO Refill Request (MAGNESIUM OXIDE 400MG TABS) 05/06/2024 Telephone [facility] [address] [facility] [address] Caryl Shi DO Health Maintenance Update (HEALTH UPDATE) 05/05/2024 12:45 PM CDT Office Visit [facility] [address] [place] [address] Caryl Shi DO Diabetes; Wound Check (Wound on back of right leg above ankle, present for 2-3 weeks. ) 05/05/2024 11:00 AM CDT Office Visit [facility] [address] [place] [address] Luis Eduardo Watts MD Musculoskeletal Problem (Follow up, back pain) 05/05/2024 Travel 05/03/2024 Orders Only [facility] Scanner 1 scan: (1-Ord) [facility], 05/03/2024 05/03/2024 Orders Only [facility] Scanner 1 scan: (1-Ord) [facility], 05/03/2024 04/30/2024 11:40 AM CDT Office Visit [facility] [address] [place] [address] Girma Palacio MD Follow Up (Follow up after MRI 03/31/24 and EMG 04/03/24 ) 04/30/2024 Refill [facility] [address] [place] [address] Caryl Shi DO Refill Request (JARDIANCE 25MG TABS) 04/30/2024 Travel 04/30/2024 Refill [facility] [address] [place] [address] Caryl Shi DO Refill Request (Tresiba Flextouch 200unit/ml) 04/22/2024 Telephone [facility] [address] [place] [address] Caryl Shi DO Medication Management (carvediloL (COREG) 25 mg tablet) 04/14/2024 Refill [facility] [address] [place] [address] Catia Swift MD Refill Request (Carvedilol) 04/03/2024 10:15 AM CDT - 04/03/2024 11:59 PM CDT Hospital Encounter [facility] EMG/EEG/EP [address] [address] Girma Palacio MD Beck, Daylin Hayes MD Balance problem 04/02/2024 12:45 PM CDT Office Visit [facility] [address] [place] [address] Caryl Shi, Anxiety (Feels his mood is still impacted by his physical impairments. Sleep is also heavily impacted); Depression 04/02/2024 Travel from Last 3 Months Immunizations Name Administration [...] Description 07/04/2024 9:00 AM CDT Procedure Only [facility] [address] [place] [address] Luis Eduardo Watts MD [address] [place] [address] 07/10/2024 1:20 PM CDT Office Visit [facility] [address] [address] Keri Reid DPM [address] [address] 08/07/2024 12:45 PM DENTURE MODEL MAKER Office Visit [facility] [address] [place] [address] Caryl Shi DO [address] [place] [address] Health Maintenance Due Date Last Done Comments Pneumococcal series for age 65+ (1 of 2 - PCV) 1966 COVID-19 vaccine series ( - season) 2024 Influenza for age 65+ 05/25/2024 [...] AM CDT EMG Routine 04/03/2024 Balance problem US ABD AORTA SCREENING Routine 08/27/2023 2:10 PM DENTURE MODEL MAKER Screening for AAA (aortic abdominal aneurysm) LIPID [...] right hip. Inadvertently, sagittal PD fat-sat small [id number] images were not acquired. Coronal and axial [...] the right hip.Inadvertently, sagittal PD fat-sat small [id number] images were notacquired. Coronal and axial T1 [...] Watts MD MR * ANTI HIV 1/2 [94045.0] (05/05/2024 12:10 PM CDT) HIV-1/HIV-2 SCREEN Non-Reacti ve Non-Reacti ve 05/06/2024 1:45 AM CDT [facility] Comment:HIV-1 p24 and HIV-1/ HIV-2 Ab Not Detected. Blood BLOOD SPECIMEN / Unknown Venipuncture / Unknown 05/05/2024 12:10 PM CDT 05/05/2024 12:11 PM CDT Caryl Shi DO SEND OUTS [facility] [address] [place] [address], * (ABNORMAL) HEMOGLOBIN A1C MONITORING (POCT) (05/05/2024 12:10 PM CDT) [facility] HEMOGLOBIN A1C MONITORING (POCT) 7.0(H) <=6.4 % 05/05/2024 12:26 PM CDT [facility] Blood BLOOD SPECIMEN / Unknown Venipuncture / Unknown 05/05/2024 12:10 PM CDT 05/05/2024 12:11 PM CDT Narrative [facility] - 05/05/2024 12:26 PM CDT ? (<=6.9%) [...] Anemias, Splenectomy ? Caryl Shi DO CHEMISTRY [facility] [address] [place] [address], [place] [phone] * PSA TOTAL SCREEN [[id number]] (05/05/2024 12:10 PM CDT) [facility] PSA TOTAL (SCREEN) 0.06 <4.00 ng/mL 05/06/2024 1:09 AM CDT [facility] Blood BLOOD SPECIMEN / Unknown Venipuncture / Unknown 05/05/2024 12:10 PM CDT 05/05/2024 12:11 PM CDT Narrative [facility] - 05/06/2024 1:09 AM CDT The test [...] be used interchangeably. Caryl Shi DO LABORATORY [facility] [address] [place] [address], [place] * SCAN-LABORATORY REPORT (05/03/2024 12:00 AM CDT) Only the most recent of2 resultswithin the time period is included. Scanner OTHER * EMG (04/03/2024) Girma Palacio MD NEUROLOGY ORD * US ABD AORTA SCREENING [[id number]] (08/27/2023 2:10 PM DENTURE MODEL MAKER) Anatomical Region Laterality Modality Abdomen, AORTA Ultrasound 08/27/2023 2:16 PM DENTURE MODEL MAKER Narrative 08/27/2023 2:16 PM DENTURE MODEL MAKER For Patients: ??As a result of the [...] REFLEX MEASURED LDL (07/26/2023 2:25 PM CDT) [facility] CHOLESTEROL,TOTAL 146 100 - 199 mg/dL 07/26/2023 10:45 PM CDT [facility] TR[facility] LABORATORY Comment: Cholesterol, Total Reference Ranges Desirable <200 mg/dL Borderline 200-239 mg/dL High >=240 mg/dL TRIGLYCERIDES 436(H) <150 mg/dL 07/26/2023 10:45 PM CDT [facility] TRAL LABORAT[facility] HDL CHOLESTEROL 32(L) >40 mg/dL 3 10:45 PM CDT [facility] TRAL LABORAT[facility] NON-HDL CHOLESTEROL 114 <145 mg/dl 07/26/2023 10:45 PM CDT [facility] CHOL/HDL RATIO 4.56(H) <4.50 07/26/2023 10:45 PM CDT [facility] LDL CHOLESTEROL 3 10:45 PM CDT [facility] LABORATORY Comment:Invalid LDL when Tri g >400. VLDL CHOLESTEROL COMMENT 07/26/2023 10:45 PM CDT [facility] Comment:Unable to calculate VLDL. PROVIDER ORDERED STATUS FASTING 07/26/2023 10:45 PM CDT [facility] Blood BLOOD SPECIMEN / Unknown Venipuncture / Unknown 07/26/2023 2:25 PM CDT 07/26/2023 2:25 PM CDT Catia Swift MD CHEMISTRY [facility] [address] [place] [address], from Last 3 Months or Most Recently Relevant to Health Maintenance Care Teams Sensitizer Relationship Specialty Start Date End Date Caryl Shi DO [address] [place] [address] PCP - General Family Practice 07/23/23 Sarahi Roche, RN [address] [place] [address] Framer 06/01/23
--- OUTSIDE RECORDS SUMMARY | 2024-07-03 14:25 | XMS_ITS ---
Author Organization [facility] Address [address] [place] [address] [address] [place] [address] Care Team Providers Care Family Support Specialist Name Role Phone Caryl Shi Primary Care Provider UnavailKarlo Wilkins Unavailable [phone] Catia Swift MD Unavailable Unavailable Michael Suárez Unavailable [phone] REASON FOR VISIT 4 Week Follow-Up Medications [...] for 17 Days Active UltiCare Short Pen [place] 31G X 8 MM DIRECTED for 30 Days Active Encounters Encounter Location Date Provider Diagnosis [address] [facility] [address] [facility] [address] [place] [address] 06/17/2024 Michael Suárez Other chronic pain G89.29 [...] documentation has been reviewed by the aforementioned COURT ABSTRACTOR as well as Karlo Ortiz MD, prior [...] documentation has been reviewed by the aforementioned COURT ABSTRACTOR as well as Karlo Ortiz MD, prior [...] Provider Name:Michael Suárez , 07/07/2024 11:45:00 AM, [address], [address], [place], [address], Progress Notes * Rafa RIVAS JrDOB: (64 yo M)Acc No.[id number]:06/17/2024 Progress Notes Patient:?Rafa RIVAS Jr Provider:?Michael Suárez NP :1960???Age:64 Y???Sex:Male Adiel e:06/17/2024 Phone: [facility] [facility] Pcp:Caryl Shi Subjective: * Chief Complaints: * ???1. 4 Week Follow-Up. * HPI: ???Clinic visit:? Rafa (Bill) returns regarding his chronic low back, neck, and knee pain. Procedure History : Several lumbar injections at [facility] have not been helpful. He also completed cervical injections at [facility]. Genicular RFAs have been completed in the past without relief - 01/01/2024 Lumbar injection ([facility]) : good relief - 11/21/2022 L5-S1 FANTASMA : 60-70% relief - 12/07/2022 bilateral knee injections (no relief) - 04/13/2023 Right knee injection : 60% relief, spiked blood pressure Previous Consults : Srinath Curiel MD of [facility] for knee treatment. Dr. Hoff (Surgeon) discussed SCS vs. L5-S1 RFA Previous Therapy : He completed knee therapy in 2019 without benefit. He has also completed therapy at [facility]. Current Pain Medications : Oxycodone 5mg BID PRN, Gabapentin, Methocarbamol 750mg BID, Meloxicam 7.5mg QD, Tizanidine 4mg QHS, Meloxicam BID PRN, NyQuil Previous Pain Medications : Amitriptyline returns to clinic today for a follow up evaluation regarding his chronic ____ pain. I have reviewed the [facility] database and did not find any inconsistencies. [...] a day , Taking UltiCare Short Pen [place] 31G X 8 MM Miscellaneous DIRECTED , [...] Electronic signature of Stanislav Suárez CNP on 07/03/2024 at 02:25 PM CDT Sign off status: Pending * Provider:?Michael Suárez NP Date:?06/17 Generated for Andi fields/Mona/Chinedusmitting on:?07/03/2024 02:25 PM CDT History and Physical Notes * Examination Category Sub-Category Detail Notes Musculoskeletal Constitutional: morbid obese bod y habitus, in no acute distress Musculoskeletal: Uses cane for ambula tion Skin: Neurological normal coordination upper extremities, normal coordination lower extremities, alert and oriented x3, normal mood and affect
--- OUTSIDE RECORDS SUMMARY | 2024-07-03 14:26 | XMS_ITS | Patient Health Record ---
Author Organization [facility] Address [address] [place] [address] [address] [place] [address] Care Team Providers Care Nursing Clerk Name Role Phone Caryl Shi Primary Care Provider UnavailKarlo Wilkins Unavailable [phone] Caita Swift MD Unavailable Unavailable Collin Tafoya Unavailable [phone] Kash Valdez Unavailable [phone] Michael Suárez Unavailable [phone] Allergies No Known Allergies Results Component Value [...] for 30 days Active [employer] Short Pen [place] 31G X 8 MM DIRECTED for 30 [...] W/U Status Risk Notes Problem Opioid dependence (16192138) Opioid dependence, uncomplicated (F11.20) Active confirmed Problem Chronic pain (91272754) Other chronic pain (G89.29) Active confirmed Problem Primary osteoarthritis (916747230) Unilateral primary osteoarthritis, right knee (M17.11) Active confirmed Problem Osteoarthritis of knee (455820705) Unilateral primary osteoarthritis, left knee (M17.12) Active confirmed Problem Acquired spondylolisthesis (964541736) Spondylolysis, lumbosacral region (M43.07) Active confirmed Problem Lumbosacral radiculopathy (6543076) Radiculopathy, lumbosacral region (M54.17) Active confirmed Problem Low back pain (597627572) Low back pain, unspecified (M54.50) Active confirmed Vital Signs Blood pressure diastolic 84 mm Hg 04/08/2024 Height 74 in 04/08/2024 Blood pressure systolic 132 mm Hg 04/08/2024 Weight 337 lbs 04/08/2024 BMI 43.26 kg/m2 04/08/2024 Encounters Encounter Location Date Provider Diagnosis 104 [facility] [address] [place] [address] 07/26/2023 Kash Valdez Other chronic pain G89.29 ; Radiculopathy, lumbosacral region M54.17 ; Cervicalgia M54.2 and Spondylolysis, lumbosacral region M43.07 BV 104 [facility] [address] [place] [address] 08/30/2023 Kash Valdez Other chronic pain G89.29 ; Radiculopathy, lumbosacral region M54.17 ; Cervicalgia M54.2 and Spondylolysis, lumbosacral region M43.07 BV 104 [facility] [address] [address] 09/06/2023 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 and Opioid dependence, uncomplicated F11.20 BV 104 [facility] [address] [address] 10/04/2023 Kashruth Valdez Spondylolysis, lumbosacral region M43.07 ; Radiculopathy, lumbosacral region M54.17 ; Cervicalgia M54.2 and Other chronic pain G89.29 BV 104 [facility] [address] [address] 11/08/2023 Kash Valdez Spondylolysis, lumbosacral region M43.07 ; Radiculopathy, lumbosacral region M54.17 ; Cervicalgia M54.2 and Other chronic pain G89.29 BV 104 [facility] [address] [address] 12/04/2023 Michael Suárez Other chronic pain G89.29 ; Low back pain, unspecified M54.50 ; Opioid dependence, uncomplicated F11.20 ; retirement (current) use of opiate analgesic Z79.891 and Encounter for screening for other disorder Z13.89 BV 104 [facility] [address] [address] 01/03/2024 Michael Suárez Other chronic pain G89.29 and Low back pain, unspecified M54.50 BV 104 [facility] [address] [address] 02/07/2024 Kash Valdez Other chronic pain G89.29 and Low back pain, unspecified M54.50 BV 104 [facility] [address] [address] 03/11/2024 Michael Suárez Other chronic pain G89.29 and Low back pain, unspecified M54.50 BV 104 [facility] [address] [facility] [address] [place] [address] 04/08/2024 Michael Jose Armando Other chronic pain G89.29 and Low back pain, unspecified M54.50 [facility] [address] [place] [address] [address] [place] [address] 07/19/2023 Karlo Ortiz Other chronic pain G89.29 [facility] [address] [place] [address] [address] [facility] [place] [address] 08/01/2023 Karlo Ortiz Other chronic pain G89.29 [facility] [address] [place] [address] [address] [place] [address] 08/07/2023 Collin Tafoya Other chronic pain G89.29 [facility] [address] [place] [address] [address] [place] [address] 08/23/2023 Karlo Ortiz [facility] 250 [facility] [address] [facility] [address] [place] [address] 08/30/2023 Kash Valdez [facility] 250 [facility] [address] [facility] [address] [place] [address] 01/03/2024 Michael Amayae [facility] [address] [place] [address] [address] [facility] [place] [address] 04/23/2024 Karlo Ortiz [facility] [address] [place] [address] [address] [place] [address] 05/02/2024 Michael Suárez Other chronic pain G89.29 [facility] [address] [place] [address] [address] [facility] [place] [address] 06/17/2024 Michael Suárez Other chronic pain G89.29 Assessments Encounter Date Diagnosis (ICD Code) Assessment Notes Treatment Notes Treatment Clinical Notes 07/26/2023 Other chronic pain (ICD-10 - G89.29) Rafa returns to clinic today for a follow-up evaluation regarding his chronic low back, neck, and bilateral knee pain. I have reviewed the [facility] database and did not find any [...] bilateral knee pain. I have reviewed the [facility] database and did not find any [...] or sooner if needed. Plan:1. UDS at JUL2. Refill Oxycodone 5 MG once UDS is [...] Spondylolysis, lumbosacral region (ICD-10 - M43.07) 09/06/2023 retirement (current) use of opiate analgesic (ICD-10 - Z79.891) 12/04/2023 Other chronic pain (ICD-10 - G89.29) Rafa returns to clinic today for a follow-up evaluation regarding his acute on chronic pain. I have reviewed the [facility] database and did not find any [...] his chronic pain. I have reviewed the [facility] database and did not find any [...] his chronic pain. I have reviewed the [facility] database and did not find any [...] his chronic pain. I have reviewed the [facility] database and did not find any [...] on chronic pain. I have reviewed the [facility] database and did not find any [...] 07/26/2023 Radiculopathy, lumbosacral region (ICD-10 - M54.17) 07/26/2023 Cervicalgia (ICD-10 - M54.2) 08/30/2023 Cervicalgia (ICD-10 - M54.2) 10/04/2023 Other chronic pain (ICD-10 - G89.29) Rafa (Vinod) returns to clinic today for a follow up evaluation regarding his chronic pain. I have reviewed the [place] [facility] database and did not find any inconsistencies. [...] on chronic pain. I have reviewed the [facility] database and did not find any [...] 07/26/2023 Spondylolysis, lumbosacral region (ICD-10 - M43.07) 12/04/2023 retirement (current) use of opiate analgesic (ICD-10 - [...] benzodiazepines and other drugs (prescribed or not). 06/17/2024 Other I, Tommy Vides , am serving as a scribe to document services personally performed by Michael Suárez CNP, based upon my observations and the provider's statements to me. All documentation has been reviewed by the aforementioned FABRICATION DEPARTMENT SUPERVISOR as well as Karlo Ortiz MD, prior [...] decisions made by her. 08/30/2023 Other Kiko, Annsa Duc yee, am serving as a scribe to document services personally performed by Kash Valdez PA-C, based upon my observations and the provider's statements to me. All documentation has been reviewed by the aforementioned PALeonardaC as well as Bakari Stringer MD, prior [...] the decisions made by her. 10/04/2023 Other Kiko, Tommy Vides , am serving as a scribe to document services personally performed by Kash Valdez PA-C, based upon my observations and the provider's statements to me. All documentation has been reviewed by the aforementioned PAYeyo. I, Kash Valdez PA-C, attest that the [...] documentation has been reviewed by the aforementioned PALeonardaC as well as Bakari Stringer MD, prior to being entered into the official medical record. Baakri Hoover MD attest that the above named individual is acting in scribe capacity, has observed Kash Valdez's performance of the services and has documented them in accordance with her direction. The documentation recorded by the scribe accurately reflects the service Kash Valdez PA-C, personally performed and the decisions made by her. 12/04/2023 Other Mary Hoover, am serving as a scribe to document services personally performed by Michael Suárez CNP, based upon my observations and the provider's statements to me. All documentation has been reviewed by the aforementioned FABRICATION DEPARTMENT SUPERVISOR as well as Karlo Ortiz MD, prior to being entered into the official medical record. IKarlo MD attest that the above named individual is acting in scribe capacity, has observed Michael Jose Armando's performance of the services and has documented them in accordance with her direction. The documentation recorded by the scribe accurately reflects the service Michael Suárez CNP and Karlo Ortiz MD personally performed and the decisions made by them. 01/03/2024 Other Erlin Hoover , am serving as a scribe to document services personally performed by Michael Suárez CNP, based upon my observations and the provider's statements to me. All documentation has been reviewed by the aforementioned FABRICATION DEPARTMENT SUPERVISOR as well as Bakari Stringer MD, prior [...] the decisions made by them. 02/07/2024 Other Tommy Hoover , am serving as [...] the decisions made by her. 03/11/2024 Other Erlin Hoover , am serving as a scribe to document services personally performed by Michael Suárez CNP, based upon my observations and the provider's statements to me. All documentation has been reviewed by the aforementioned FABRICATION DEPARTMENT SUPERVISOR as well as Karlo Ortiz MD, prior [...] documentation has been reviewed by the aforementioned FABRICATION DEPARTMENT SUPERVISOR as well as Karlo Ortiz MD, prior [...] Provider Name:Michael Suárez , 07/07/2024 11:45:00 AM, [address], [address], [place], [address], Insurance Providers Payer Name Payer Address Payer Phone Subscriber Number Group Number Insured Name Patient Relationship to Insured Coverage Start Date Coverage End Date [facility] [address] [address] [place] [address] [id number] Rafa Hickey Self - patient is the insured Medical (General) History Medical History History ICD Code Acid reflux Anxiety Arthritis Depression Diabetes Hypertension Hyperlipidemia BPH (Benign prostatic hypertrophy) PAD (Peripheral artery disease) ADD (Attention deficit disorder) CKD (Chronic kidney disease) stage 1 Surgical History Surgery Date(Month/Year) Right knee meniscus cartilage x2 2014, 2 018 Left hamstring reattachment 11/07/2019 Hospitalization History Reason Date(Month/Year) See surgical history
--- OUTSIDE RECORDS SUMMARY | 2024-07-03 14:26 | XMS_ITS ---
Author Organization [facility] Address [address] [place] [address] [address] [facility] [place] [address] Care Team Providers Care Computer Consultant Name Role Phone Caryl Shi Primary Care Provider Karlo Hewitt Unavailable [phone] Catia Swift MD Unavailable Unavailable Jose Armando, Michael Unavailable [phone] REASON FOR VISIT F/u week of 06/16--JF BV, scheduled Medications Medication SIG (Take, Route, Frequency, Duration) Notes Start Date End Date Status oxyCODONE HCl 5 MG 1 tablet as needed Orally every 8-12 hours (max #3/day, ok to fill 05/10/2024) for 30 days Low back pain, unspecified M54.50, G89.29 05/10/2024 Active Encounters Encounter Location Date Provider Diagnosis [facility] [address] [place] [address] [address] [facility] [place] [address] 05/02/2024 Michael Jose Armando Other chronic pain [...] Name:Michael Jose Armando , 07/07/2024 11:45:00 AM, [address], [address], [place], [address], Progress Notes * Rafa RIVAS JrDOB: (63 yo M)Acc No.[id number]:05/02/2024 Patient:?Rafa RIVAS Jr :1960???Age:63 Y???Sex:Male Phone: Address:[address] [place] [address] [address], [place] [address] * Refills? Refill oxyCODONE HCl Tablet, 5 MG, Orally, 70, 1 tablet as needed, every 8-12 hours (max #3/day, ok to fill 05/10/2024), 30 days, Refills=0 * true * Date:? Generated for Andi fields/Mona/Chinedusmitting on:?07/03/2024 02:25 PM CDT
--- OUTSIDE RECORDS SUMMARY | 2024-07-03 14:26 | XMS_ITS | Data Portability ---
Author Organization [facility] Address [address] [place] [address] Care Team Providers Care In Flight Refueling Craftsman Name Role Phone AMANDEEP TODD Primary Care Provider [phone] Assessment Encounter Date Assessment Date Assessment LastModified [...] Orders tamsulosin 0.4 mg capsule 2022 023 [facility], [address], [place], [address], 3 10:23:19 finasteride 5 mg tablet 2022 023 [facility] [address], [address], [place], [address], 3 10:23:19 finasteride 5 mg tablet 2022 023 [facility] [address], [address], [place], [address], 3 15:52:06 tamsulosin 0.4 mg capsule 2022 023 [facility] [address], [address], [place], [address], 3 15:52:06 Patient TargetsNo targets recorded. Patient [...] Time 3 Bladder Scan completed Asuncion Batres [facility] 12/27/2022 10:13:26 2 Bladder Scan completed Gris Dwyer [facility] 05/31/2022 11:23:55 9 colonoscopy completed Gris Dwyer [facility] 05/31/2022 11:23:05 Imaging Results [...] Updated DateTime 05/31/2022 187.96 cm 41.2 kg/m2 143639.15 cinthia Dwyer [facility] 05/31/2022 11:22:11 Date Recorded Body height Body mass index (BMI) Body weight Provider Name and Address Organization Details Last Updated DateTime 12/27/2022 187.96 cm 41.2 kg/m2 779542.15 cinthia Batres [facility] 12/27/2022 10:15:31 Date Recorded Body height Body mass index (BMI) Body weight Provider Name and Address Organization Details Last Updated DateTime 05/30/2023 187.96 cm 41.2 kg/m2 213972.15 cinthia Dhaval Cruz MD [address] [place] [address],[address], [address] 05/30/2023 15:20:19 Social History Question Answer Notes LastModified by Organizat ion Details LastModified Time Tobacco Smoking Status [facility] 05/31/2022 11:22:52 What Is [...] Time Tdap 06/24/2010 completed Dhaval Cruz MD [address] [place] [address],[address], [place], [address], [facility] 05/30/2023 15:20:28 Tdap 07/19/2016 completed Dhaval Cruz MD [address] [place] [address],[address], [place], [address], [facility] 05/30/2023 15:20:28 Hep A-Hep B 12/28/2010 completed Dhaval Cruz MD [address] [place] [address],[address], [place], [address], [facility] 05/30/2023 15:20:28 Hep A-Hep B 06/24/2010 completed Dhaval Cruz MD [address] [place] [address],[address] [place] [address], [address], [facility] 05/30/2023 15:20:28 Hep A-Hep B 07/25/2010 completed Dhaval Cruz MD [address] [place] [address],[address], [address], [facility] 05/30/2023 15:20:28 zoster recombinant 10/23/2022 completed Oumou pepe [facility] 07/25/2023 13:14:35 zoster recombinant 12/25/2022 completed Oumou pepe [facility] 07/25/2023 13:14:35 Past Encounters Encounter ID Performer Location Encounter Start Date Encounter Closed Date Diagnosis/Indication Diagnosis SNOMED-CT Code Diagnosis ICD10 Code [id number] MD TANNER Rao_Maria Eugenia [address] [place] [address] 05/31/2022 11:07:00 06/05/2022 15:44:25 Increased frequency of urination 703995248 R35.0 Nocturia 818731118 R35.1 Urgent cheyanne carlyle to urinate 99424259 R39.15 [id number] MD TANNER Rao_Maria Eugenia [address] [place] [address] 12/27/2022 10:02:20 12/29/2022 11:02:58 Increased frequency of urination 865710641 R35.0 Nocturia 420501250 R35.1 Urgent cheyanne carlyle to urinate 95619115 R39.15 [id number] Dhaval Cruz MD [facility] [address] [place] [address] 03/29/2023 12:04:24 04/04/2023 09:06:12 [id number] Marisol Donaldson [facility] [address] [place] [address] 04/05/2023 09:56:42 04/13/2023 07:37:49 [id number] Dhaval Cruz MD [facility] [address] [place], [place] [address] 05/30/2023 15:13:21 06/05/2023 12:26:38 Increased frequency of urination 918864002 R35.0 Nocturia 190752314 R35.1 Urgent cheyanne carlyle to urinate 03026206 R39.15 Health Concerns Section Related Observation LastModified by Organization Detai ls LastModified Time None Recorded Concern Status LastModified by Organization Details LastModified Time None Recorded Advance Directives Directive None Recorded Payers Encounter Date Sequence Insurance Name Policy Number Policy Dobson Covered Member ID Dobson Member ID Guarantor Name 05/31/2022 1 [employer] (MEDICARE REPLACEMENT/A DVANTAGE - PPO) Rafa Hickey [id number] Rafa Ruggieroo 12/27/2022 1 [employer] (MEDICARE REPLACEMENT/A DVANTAGE - PPO) Rafa Hickey [id number] Rafa Ruggieroo 03/29/2023 1 [employer] (MEDICARE REPLACEMENT/A DVANTAGE - PPO) Rafa Hickey [id number] Rafa Ruggieroo 04/05/2023 1 [employer] (MEDICARE REPLACEMENT/A DVANTAGE - PPO) Rafa Hickey [id number] Rafa Ruggieroo 05/30/2023 1 [employer] (MEDICARE REPLACEMENT/A DVANTAGE - PPO) Rafa Hickey [id number] Rafa Hickey Notes Date Note Type Note [...] provides some history. Dhaval Cruz MD [address] [facility],[address], [place], [address], [facility] 05/31/2022 13:15:14 12/27/2022 text/html HPI Notes: [...] self-discontinued his medications. Dhaval Cruz MD [address] [facility],[address], [place], [address], [facility] 12/27/2022 13:46:55 05/30/2023 text/html HPI Notes: [...] some of the history. Dhaval Cruz MD [address] [facility],[address], [place], [address], [facility] 05/30/2023 15:53:07
== END 2024-07-03 14:21 | disposition home or self-care (01) ==
LOC: WOUND 14:20
PROVIDERS: PCP Family Medicine; Visit Provider Nurse Practitioner Family
DX: E11.621 Type 2 diabetes mellitus with foot ulcer (principal); L97.522 Non-pressure chronic ulcer of other part of left foot with fat layer exposed; L97.512 Non-pressure chronic ulcer of other part of right foot with fat layer exposed; E11.22 Type 2 diabetes mellitus with diabetic chronic kidney disease; N18.32 Chronic kidney disease, stage 3b
CPT/HCPCS: 11042; 97597

== ENCOUNTER 2024-07-11 13:25 | Outpatient (CLI) | payer OTHER, SELFPAY ==
--- OUTSIDE RECORDS SUMMARY | 2024-07-11 13:29 | XMS_ITS | Encounter Summary ---
Author Organization [facility] Address [address] [place] [address]. [place] [address] Care Team Providers Care Spinning Lathe Operator Name Role Phone Maya Goyal MD Primary Care Provider Maya Goyal MD Unavailable Erlin Delcid MD Unavailable Mehdi Bass DPM Unavailable Kae Whipple [facility] Unavailable Maya Goyal MD Unavailable No Ref-Primary, Physician Primary Care Provider Mehdi Bass DPM Unavailable [facility] Unavailable Encounter Details Date Type Department Care Team (Late st Contact Info) Description 01/12/2022 [facility] Medical Advice [facility] [address] [place] [address] Maya Goyal MD [address] [place] [address] Social History Tobacco Use Types [...] Assigned at Male 09/17/2018 5:00 PM [employer] Gender Identity Male 09/17/2018 5:00 PM [employer] Sexual Orientation Straight 09/17/2018 5: 00 PM [employer] documented as of this encounter Plan of Treatment Not on file documented as of this encounter Visit Diagnoses Not on filedocumented in this encounter Additional Health Concerns Assessment Noted Time PHQ-9 Depression Total Score: 10 021 2:58 PM CDT documented as of this encounter Care Teams Spinning Lathe Operator Relationship Specialty Start Date End Date Maya Goyal MD [address] [place] [address] PCP - General 05/03/04 11/14/22 No Ref-Primary, Physician PCP - General 11/15/22 Maya Goyal MD [address] [place] [address] Assigned PCP 06/27/12 10/17/23 Erlin Delcid MD [address] [address] Assigned Surgical Provider 09/12/20 Mehdi Bass DPM [address] [facility] [address] [place] [address] Assigned Musculoskeletal Provider 08/14/21 10/27/22 Kae Whipple RPH [address] [place] [address] Assigned MTM Pharmacist 03/18/22 Maya Goyal MD [address] [facility] [address] [place] [address] Assigned Pain Medication Provider 10/02/22 03/23/23 [place] [address] [facility] [address] [place], [place] [address] Assigned Surgical Provider 10/28/22 [facility] [address] [place], [place] [address] Assigned PCP 10/18/23 documented as of this encounter
--- OUTSIDE RECORDS SUMMARY | 2024-07-11 13:29 | XMS_ITS | Clinical Summary ---
Author Organization [facility] Address [address] [place] [address] Care Team Providers Care Button Decorating Machine Operator Name Role Phone Shar Hoff MD Unavailable [phone] Doctor, No Primary Care Provider Unavailabl e [...] - 145 mMol/L 07/19/2016 5:16 AM CDT [facility] Potassium 4.0 3.5 - 5.1 mMol/L 07/19/2016 5:16 AM CDT [facility] Chloride 104 98 - 112 mMol/L 07/19/2016 5:16 AM CDT [facility] Carbon Dioxide 25 21 - 32 mMol/L 07/19/2016 5:16 AM T [facility] BUN (Urea Nitro) 17 7 - 24 mg/dL 07/19/2016 5:16 AM CDT [facility] Creatinine 0.83 0.70 - 1.30 mg/dL 07/19/2016 5:16 AM CDT [facility] Est GFR (CKD-EPI) >60 >60 mL/min 07/19/2016 5:16 AM CDT [facility] EST GFR IF AM >60 >60 mL/min 07/19/2016 5:16 AM CDT [facility] Glucose 99 74 - 106 mg/dL 07/19/2016 5:16 AM CDT [facility] Calcium, Serum 8.4(L) 8.5 - 10.1 mg/dL 07/19/2016 5:16 AM CDT [facility] Anion Gap 11.0 0.0 - 15.0 mMol/L 07/19/2016 5:16 AM T [facility] Blood 07/19/2016 4:45 AM CDT 07/19/2016 4:48 AM CDT Brigette Pena MD CHEMISTRY ORDERABLE [facility] [address] [place] [address] from Last 3 Months or Most Recently Relevant to Health Maintenance Advance Directives For more information, please contact: [phone] * Full Code (Latest Code Status on File) Date Activated Date Inactivated Comments 07/19/2016 6:14 AM 07/19/2016 4:02 PM Question Answer Comments How was code status determined? Patient Care Teams Button Decorating Machine Operator Relationship Specialty Start Date End Date Doctor, No No ad PCP - General Radiology 01/01/23 Shar Hoff MD [address] [place] [address] [address] [place] [address] Neurology 01/01/23
--- OUTSIDE RECORDS SUMMARY | 2024-07-11 13:29 | XMS_ITS | Encounter Summary ---
Author Organization [place] Address [address] [place] [address]. [place] [address] Care Team Providers Care Wireless Internet Installer Name Role Phone Maya Goyal MD Primary Care Provider Maya Goyal MD Unavailable Erlin Delcid MD Unavailable Mehdi Bass DPM Unavailable K[facility] Wh[facility] Unavailable [phone] Maya Goyal MD Unavailable No Ref-Primary, Physician Primary Care Provider Mehdi Bass DPM Unavailable [facility] Unavailable Reason for Visit * Reason Comments Medication Refill Encounter Details Date Type Department Care Team (Late st Contact Info) Description 12/05/2021 [facility] [address] [place] [address] Maya Goyal MD [address] [place] [address] Medication Refill Social History Tobacco [...] Sex Assigned at Male 09/17/2018 5:00 PM BROWNELL OPERATOR Gender Identity Male 09/17/2018 5:00 PM BROWNELL OPERATOR Sexual Orientation Straight 09/17/2018 5: 00 PM BROWNELL OPERATOR COVID-19 Exposure Response Date Recorded In the last month, have you been in contact with someone who was confirmed or suspected to have Coronavirus / COVID-19? No / Unsure 11/17/2021 2:07 PM BROWNELL OPERATOR documented as of this encounter Miscellaneous Notes * Telephone Encounter - Celestino Latham RN - 12/06/2021 6:42 PM CDT Prescription approved per [facility] Refill Protocol. documented in this encounter [...] documented as of this encounter Care Teams Wireless Internet Installer Relationship Specialty Start Date End Date Maya Goyal MD [address] [place] [address] PCP - General 05/03/04 11/14/22 No Ref-Primary, Physician PCP - General 11/15/22 Maya Goyal MD [address] [place] [address] Assigned PCP 06/27/12 10/17/23 Erlin Delcid MD [address] [place] [address] Assigned Surgical Provider 09/12/20 Mehdi Bass DPM [id number] [place] [address] [address] [place] [address] Assigned Musculoskeletal Provider 08/14/21 10/27/22 Kae Whipple [facility] [address] [place] [address] Assigned MTM Pharmacist 03/18/22 Maya Goyal MD [address] [place] [address] [address] [place] [address] Assigned Pain Medication Provider 10/02/22 03/23/23 Mehdi Bass DPM [id number] [facility] [address] [place] [address] Assigned Surgical Provider 10/28/22 [facility] [address] [place] [address] Assigned PCP 10/18/23 documented as of this encounter
--- OUTSIDE RECORDS SUMMARY | 2024-07-11 13:29 | XMS_ITS | Encounter Summary ---
Author Organization [place] Address [address] [place] [address]. [place] [address] Care Team Providers Care Civil Cad Designer Name Role Phone Maya Goyal MD Primary Care Provider Maya Goyal MD Unavailable Erlin Delcid MD Unavailable Mehdi Bass DPM Unavailable Kae Whipple [facility] Unavailable [phone] Maya Goyal MD Unavailable No Ref-Primary, Physician Primary Care Provider Mehdi Bass DPM Unavailable [phone] [facility] Unavailable Reason for Visit * Reason Comments Medication Refill Encounter Details Date Type Department Care Team (Late st Contact Info) Description 09/25/2021 [facility] [address] [place] [address] Maya Goyal MD [address] [place] [address] Medication Refill Social History Tobacco [...] Sex Assigned at Male 09/17/2018 5:00 PM DRILLING MANAGER Gender Identity Male 09/17/2018 5:00 PM DRILLING MANAGER Sexual Orientation Straight 09/17/2018 5: 00 PM DRILLING MANAGER documented as of this encounter Miscellaneous Notes * Telephone Encounter - Rukhsana Yo RN - 09/27/2021 3:57 PM CST Prescription approved per [facility] Refill Protocol. LING MANAGER documented in this encounter Plan of Treatment Not on file documented as of this encounter Visit Diagnoses Diagnosis Type 2 diabetes mellitus with stage 1 chronic kidney disease, without long-term current use of insulin (H) documented in this encounter Additional Health Concerns Assessment Noted Time PHQ-9 Depression Total Score: 10 021 2:58 PM CDT documented as of this encounter Care Teams Civil Cad Designer Relationship Specialty Start Date End Date Maya Goyal MD [address] [place] [address] PCP - General 05/03/04 11/14/22 No Ref-Primary, Physician PCP - General 11/15/22 Maya Goyal MD [address] [place] [address] Assigned PCP 06/27/12 10/17/23 Erlin Delcid MD [address] [address] Assigned Surgical Provider 09/12/20 Mehdi Bass DPM [id number] [facility] [address] [place] [address] Assigned Musculoskeletal Provider 08/14/21 10/27/22 [facility] [address] [place] [address] Assigned MTM Pharmacist 03/18/22 Maya Goyal MD 303 [facility] [address] [place] [address] Assigned Pain Medication Provider 10/02/22 03/23/23 Mehdi Bass DPM [id number] [facility] [address] [place] [address] Assigned Surgical Provider 10/28/22 [facility] [address] [place] [address] Assigned PCP 10/18/23 documented as of this encounter
--- OUTSIDE RECORDS SUMMARY | 2024-07-11 13:29 | XMS_ITS | Clinical Summary ---
Author Organization [facility] Address [address] [place] [address] Care Team Providers Care Clinical Nurse Occupational Medicine Name Role Phone No Ref-Primary, Physician Primary Care Provider [facility] Unavailable Allergies Active Allergy Reactions Criticality [...] Total Score(s): No flowsheet data found. Last [facility] website verification: 09/19/19 [email or web address] CKD (chronic kidney disease) stage 1, GFR [...] Comments Circulatory Father AAA Heart Disease Father [place] with sudden d eath, complicated AAA repair [...] Sex Assigned at Male 09/17/2018 5:00 PM CONCESSION MANAGER Gender Identity Male 09/17/2018 5:00 PM CONCESSION MANAGER Sexual Orientation Straight 09/17/2018 5: 00 PM CONCESSION MANAGER Last Filed Vital Signs Vital Sign Reading Time Taken Comments Blood Pressure 138/88 11/17/2021 2:13 PM CONCESSION MANAGER Pulse 99 11/17/2021 2:13 PM CONCESSION MANAGER Temperature 37.1 ??C (98.7 ??F) 11/17/2021 2:13 PM CS T Respiratory Rate 18 11/17/2021 2:13 PM CONCESSION MANAGER Oxygen Saturation 98% 11/17/2021 2:13 PM CONCESSION MANAGER Inhaled Oxygen Concentration - - Weight 154.7 kg (341 lb) 11/17/2021 2:13 PM CONCESSION MANAGER Height 188 cm (6' 2) 11/17/2021 2:13 PM CONCESSION MANAGER Body Mass Index 43.78 11/17/2021 2:13 PM CONCESSION MANAGER Plan of Treatment Health Maintenance Due Date [...] DRUG SCREEN CLINIC Routine 11/10/2021 10:09 AM CONCESSION MANAGER Chronic, continuous use of opioids ALBUMIN RANDOM URINE QUANTITATIVE Routine 11/10/2021 10:09 AM CONCESSION MANAGER Type 2 diabetes mellitus with stage 1 chronic kidney disease, without long-term current use of insulin (H) Benign essential hypertension BASIC METABOLIC PANEL Routine 11/10/2021 10:01 AM CONCESSION MANAGER Type 2 diabetes mellitus with stage 1 chronic kidney disease, without long-term current use of insulin (H) Benign essential hypertension HEMOGLOBIN A1C Routine 11/10/2021 10:01 AM CONCESSION MANAGER Type 2 diabetes mellitus with stage 1 chronic kidney disease, without long-term current use of insulin (H) EYE EXAM - HIM SCAN 05/20/2021 1 2:00 AM CDT LIPID REFLEX TO DIRECT LDL PANEL Routine 04/13/2021 4:09 PM CDT Hyperlipidemia LDL goal <100 COLONOSCOPY Routine 08/13/2019 10:[address] CHEST/ABDOMEN/PELVIS W CONTRAST STAT 02/18/2018 12:20 PM CDT HEPATITIS C SCREEN REFLEX TO HCV RNA QUANT AND GENOTYPE Routine 08/10/2017 11:22 AM CONCESSION MANAGER Encounter for routine adult health examination without abnormal findings FECAL COLORECTAL CANCER SCREEN FIT Routine 06/25/2013 11:31 AM CDT Screen for colon cancer UA MACROSCOPIC WITH REFLEX TO MICRO Routine 10/13/2010 4:49 PM CONCESSION MANAGER HTN (hypertension) from Last 3 Months or Most Recently Relevant to Health Maintenance Results * (ABNORMAL) Drug Abuse Screen Panel 13, Urine (Pain Care Package) - lab collect (11/10/2021 10:09 [facility]) Cannabinoids (09-avs-1-carboxy -9-THC) Not Detected Not Detected, Indeterminate 11/10/2021 10:28 AM CONCESSION MANAGER [facility] Comment:Cutoff for a negativ e cannabinoid is 50 ng/mL or less. Phencyclidine Not Detected Not Detected, Indeterminate 11/10/2021 10:28 AM CONCESSION MANAGER [facility] Comment:Cutoff for a negativ e PCP is 25 ng/mL or less. Cocaine (Benzoylecgonine) Not Detected Not Detected, Indeterminate 11/10/2021 10:28 AM CONCESSION MANAGER [facility] Comment:Cutoff for a negativ e cocaine is 150 ng/ml or less. Methamphetamine (d-Methamphetamin e) Not Detected Not Detected, Indeterminate 11/10/2021 10:28 AM CONCESSION MANAGER [facility] Comment:Cutoff for a negativ e methamphetamine is 500 ng/ml or less. Opiates (Morphine) Not Detected Not Detected, Indeterminate 11/10/2021 10:28 AM CONCESSION MANAGER [facility] Comment:Cutoff for a negativ e opiate is 100 ng/ml or less. Amphetamine (d-Amphetamine) Not Detected Not Detected, Indeterminate 11/10/2021 10:28 AM CONCESSION MANAGER [facility] Comment:Cutoff for a negativ e amphetamine is 500 ng/mL or less. Benzodiazepines (Nordiazepam) Not Detected Not Detected, Indeterminate 11/10/2021 10:28 AM CONCESSION MANAGER [facility] Comment:Cutoff for a negativ e benzodiazepine is 150 ng/ml or less. Tricyclic Antidepressants (Desipramine) Not Detected Not Detected, Indeterminate 11/10/2021 10:28 AM CONCESSION MANAGER [facility] Comment:Cutoff for a negativ e tricyclic antidepressant is 300 ng/ml or less. Methadone Not Detected Not Detected, Indeterminate 11/10/2021 10:28 AM CONCESSION MANAGER [facility] Comment:Cutoff for a negativ e methadone is 200 ng/ml or less. Barbiturates (Butalbital) Not Detected Not Detected, Indeterminate 11/10/2021 10:28 AM CONCESSION MANAGER [facility] Comment:Cutoff for a negativ e barbituate is 200 ng/ml or less. Oxycodone Detected(A ) Not Detected, Indeterminate 11/10/2021 10:28 AM CONCESSION MANAGER [facility] Comment: Cutoff for a positive oxycodone is greater than 100 ng/ml. This is an unconfirmed screening result to be used for medical purposes only. Propoxyphene (Norpropoxyphene) Not Detected Not Detected, Indeterminate 11/10/2021 10:28 AM CONCESSION MANAGER [facility] Comment:Cutoff for a negativ e propoxyphene is 300 ng/ml or less. Buprenorphine Not Detected Not Detected, Indeterminate 11/10/2021 10:28 AM CONCESSION MANAGER [facility] Comment:Cutoff for a negativ e buprenorphine is 10 ng/ml or less. Urine MID-STREAM URINE SPECIMEN / Unknown Non-blood Collection / Unknown 11/10/2021 10:09 AM CONCESSION MANAGER 11/10/2021 10:09 AM CONCESSION MANAGER Maya Goyal MD LAB - URINE ORDERABL ES [facility] [address], [address] [place] [address], [facility] [phone] * (ABNORMAL) Albumin Random Urine Quantitative with Creat Ratio (11/10/2021 10:09 AM CONCESSION MANAGER) Creatinine Urine mg/dL 74 mg/dL 11/11/2021 11:04 AM CONCESSION MANAGER [facility] Albumin Urine mg/L 14 mg/L 11/11/2021 11:04 AM CONCESSION MANAGER [facility] Albumin Urine mg/g Cr 18.92(H) 0.00 - 17.00 mg/g Cr 11/11/2021 11:04 AM CONCESSION MANAGER [facility] Urine MID-STREAM URINE SPECIMEN / Unknown Non-blood Collection / Unknown 11/10/2021 10:09 AM CONCESSION MANAGER 11/10/2021 10:09 AM CONCESSION MANAGER Maya Goyal MD LAB - URINE ORDERABL ES Performing Organization Address City/[facility]/ZIP Co de Phone Number OX [facility]ORY [facility] [address] Lab (no room number, 1st floor of clinic) [place] [address], [facility] [phone] * (ABNORMAL) Hemoglobin A1c (11/10/2021 10:01 AM CONCESSION MANAGER) Hemoglobin A1C 6.6(H) 0.0 - 5.6 % 11/10/2021 10:26 AM CONCESSION MANAGER [facility] Comment: Normal <5.7% Prediabetes 5.7-6.4% ?? Diabetes 6.5% or higher Note: Adopted from ADA consensus guidelines. Blood BLOOD SPECIMEN / Unknown Venipuncture / Unknown 11/10/2021 10:01 AM CONCESSION MANAGER 11/10/2021 10:02 AM CONCESSION MANAGER Maya Goyal MD LAB - BLOOD ORDERABL ES [facility] [address] [place] [address], [facility] [phone] * (ABNORMAL) Basic metabolic panel (Ca, Cl, CO2, Creat, Gluc, K, Na, BUN) (11/10/2021 10:01 AM CONCESSION MANAGER) Sodium 131(L) 133 - 144 mmol/L 11/11/2021 8:39 AM CONCESSION MANAGER [facility] Potassium 4.8 3.4 - 5.3 mmol/L 11/11/2021 8:39 AM CONCESSION MANAGER [facility] Chloride 96 94 - 109 mmol/L 11/11/2021 8:39 AM CONCESSION MANAGER [facility] Carbon Dioxide (CO2) 22 20 - 32 mmol/L 11/11/2021 8:39 AM CONCESSION MANAGER [facility] Anion Gap 13 3 - 14 mmol/L 11/11/2021 8:39 AM CONCESSION MANAGER [facility] Urea Nitrogen 11 7 - 30 mg/dL 11/11/2021 8:39 AM CONCESSION MANAGER [facility] Creatinine 0.92 0.66 - 1.25 mg/dL 11/11/2021 8:39 AM CONCESSION MANAGER [facility] Calcium 8.9 8.5 - 10.1 mg/dL 11/11/2021 8:39 AM CONCESSION MANAGER [facility] Glucose 135(H) 70 - 99 mg/dL 11/11/2021 8:39 AM CONCESSION MANAGER [facility] GFR Estimate >90 >60 mL/min/1.7 3m2 11/11/2021 8:39 AM CONCESSION MANAGER [facility] Comment:Effective August 252020 eGFRcr in adults is calculated using the 2020 CKD-EPI creatinine equation which includes age and gender (Donis et al., NEJM, DOI: 10.1056/YHAVem6292241) Blood BLOOD SPECIMEN / Unknown Venipuncture / Unknown 11/10/2021 10:01 AM CONCESSION MANAGER 11/10/2021 10:02 AM CONCESSION MANAGER Maya Goyal MD LAB - BLOOD ORDERABL ES [facility] [address] [place] [address] Lab (no room number, 1st floor of clinic) [place] [address], [facility] [phone] * EYE EXAM - HIM SCAN (05/20/2021 12:00 AM CDT) RETINOPATHY NEGATIVE 05/20/2021 Narrative Kya Riley K - 05/20/2021 12:00 AM CDT DIABETIC EYE EXAM [facility] Provider Outside OTHER * (ABNORMAL) Lipid [...] Goyal MD LAB - BLOOD ORDERABL ES [facility] [address] Lab (no room number, 1st floor of clinic) [place] [address], [facility] [phone] * COLONOSCOPY (08/13/2019 10:22 AM CONCESSION MANAGER) COLONOSCOPY [facility] Patient Name: Rafa Hickey ?Procedure Date: 08/13/2019 [...] # [id number], [place] ?# 221, SN # [id number] was introduced through the anus ?and advanced [...] history of colonic polyps CPT copyright 2018 [employer]. All rights reserved. The codes documented in this report are preliminary and upon passenger representative review may be revised to meet current compliance requirements. Electronically signed by Karlo Luis MD __ Karlo Luis MD 08/13/2019 10:51:03 AM I was physically present for the entire viewing portion of the exam. Karlo Luis MD Number of Addenda: 0 Note Initiated On: 08/13/2019 10:22 AM MRN: ?[id number] Procedure Date: ? 08/13/2019 10:22:02 AM Scope Withdrawal Time: 0 hours 6 minutes 13 seconds Total Procedure Duration: 0 hours 18 minutes 55 seconds Estimated Blood Loss: ? Scope In: 10:25:38 AM Scope Out: 10:44:33 AM RADIOLOGY RESULTS 08/13/2019 10:2 2 AM CONCESSION MANAGER Maya Goyal MD PROCEDURES RADIOLOGY RESULTS * [...] RNA Quant and Genotype (08/10/2017 11:22 AM CONCESSION MANAGER) Hepatitis C Antibody Nonreactive NR^Nonre active 08/13/2017 10:46 AM CONCESSION MANAGER [facility] Comment: Assay performance characteristics have not been established for newborns, infants, and children Blood specimen (specimen) 08/10/2017 11:22 AM CONCESSION MANAGER 08/10/2017 11:23 AM CONCESSION MANAGER Maya Goyal MD LAB - BLOOD ORDERABL ES [address] * Fecal colorectal cancer screen (FIT) (06/25/2013 11:31 AM CDT) Pathologist [facility] Occult Blood Scn FIT Negative NEG [facility] Stool specimen (specimen) 06/25/2013 11:31 AM CDT 06/25/2013 11:32 AM CDT Maya Goyal MD LAB - STOOLS ORDERAB LES [facility] * (ABNORMAL) UA macroscopic with reflex to micro (10/13/2010 4:49 PM CONCESSION MANAGER) Pathologist [facility] Color Urine Yellow [facility] Appearance Urine Clear [place] [facility] Glucose Urine Negative NEG mg/dL [facility] Bilirubin Urine Negative NEG [facility] Ketones Urine Negative NEG mg/dL [facility] Specific [place] Urine 1.015 1.003 - 1.035 [facility] Blood Urine Moderate(A) NEG [facility] pH Urine 5.5 5.0 - 7.0 pH [facility] Protein Albumin Urine Negative NEG mg/dL [facility] Urobilinogen Urine 0.2 0.2 - 1.0 EU/dL [facility] Nitrite Urine Negative NEG [facility] Leukocyte Esterase Urine Negative NEG [facility] Source Midstream Urine [facility] Urine specimen (specimen) 10/13/2010 4:49 PM CONCESSION MANAGER 10/13/2010 4:54 PM CONCESSION MANAGER Maya Goyal MD LAB - URINE ORDERABL ES [facility] from Last 3 Months or Most Recently Relevant to Health Maintenance Rafa Hickey Personal/Family Self 1960 [phone] (Home) [address] [address] [id number] EST [employer] Worker's Compensation Employer [id number] (Home) [address] [place] [address] [id number] [employer]LINES Worker's Compensation Employer [id number] (Home) [address] [place] [address] [id number] [employer] Worker's Compensation Employer [id number] (Home) [address] [place] [address] [id number] [employer] Worker's Compensation Employer [id number] (Home) [address] [address] [id number] [employer] Worker's Compensation Employer 1960 NONE (Work) [address] [address] Rafa Hickey Medication Therapy Self 1960 [phone] (Home) [address] [place] [address] Advance Directives For more information, please contact: [phone] * Full Code (Latest Code Status on [...] 1:26 PM 09/12/2017 10:19 AM Care Teams Clinical Nurse Occupational Medicine Relationship Specialty Start Date End Date No Ref-Primary, Physician PCP - General 11/15/22 [facility] - [address] [address] Assigned PCP 10/18/23
--- OUTSIDE RECORDS SUMMARY | 2024-07-11 13:29 | XMS_ITS | Encounter Summary ---
Author Organization [facility] Address [address] [place] [address]. [place] [address] Care Team Providers Care Rn Medicare Name Role Phone Maya Goyal MD Unavailable No Ref-Primary, Physician Primary Care Provider [facility] Unavailable Reason for Visit * Reason Comments Medication Refill Encounter Details Date Type Department Care Team (Late st Contact Info) Description 10/03/2023 [facility] [address] [place] [address] Maya Goyla MD [address] [place] [address] Medication Refill Social History Tobacco [...] Sex Assigned at Male 09/17/2018 5:00 PM STEAM CONDITIONING OPERATOR Gender Identity Male 09/17/2018 5:00 PM STEAM CONDITIONING OPERATOR Sexual Orientation Straight 09/17/2018 5: 00 PM STEAM CONDITIONING OPERATOR documented as of this encounter Miscellaneous Notes * Telephone Encounter - Rukhsana Bowden RN - 10/03/2023 1:53 PM STEAM CONDITIONING OPERATOR Pt going to [facility] now. Please deny med, will put notes in Rx. Catia Swift MD [address] [place] [address] M CONDITIONING OPERATOR documented in this encounter Plan of Treatment Not on file documented as of this encounter Visit Diagnoses Diagnosis Type 2 diabetes mellitus with stage 1 chronic kidney disease, without long-term current use of insulin (H) documented in this encounter Additional Health Concerns Assessment Noted Time PHQ-9 Depression Total Score: 10 05/16/ 021 2:58 PM CDT documented as of this encounter Care Teams Rn Medicare Relationship Specialty Start Date End Date No Ref-Primary, Physician PCP - General 11/15/22 Maya Goyal MD [address] [facility] 200 [place], [place] [address] Assigned PCP 06/27/12 10/17/23 [facility] [address] [place] [address] Assigned PCP 10/18/23 documented as of this encounter
--- OUTSIDE RECORDS SUMMARY | 2024-07-11 13:29 | XMS_ITS | Encounter Summary ---
Author Organization [place] Address [address] [place] [address]. [place] [address] Care Team Providers Care Automatic Lump Making Machine Tender Name Role Phone Maya Goyal MD Primary Care Provider Maya Goyal MD Unavailable Erlin Delcid MD Unavailable Mehdi Bass DPM Unavailable [facility] Unavailable Maya Goyal MD Unavailable No Ref-Primary, Physician Primary Care Provider Mehdi Bass DPM Unavailable [facility] Unavailable Reason for Visit * Reason Onset Date Comments MyChart Communication 11/09/2021 Encounter Details Date Type Department Care Team (Late st Contact Info) Description 11/09/2021 MyC Medical Advice M [facility] [address] [place] [address] Maya Goyal MD [address] [place] [address] MyChart Communication Social History Tobacco [...] Sex Assigned at Male 09/17/2018 5:00 PM PRODUCT DEVELOPMENT CARPENTER Gender Identity Male 09/17/2018 5:00 PM PRODUCT DEVELOPMENT CARPENTER Sexual Orientation Straight 09/17/2018 5: 00 PM PRODUCT DEVELOPMENT CARPENTER COVID-19 Exposure Response Date Recorded In the last month, have you been in contact with someone who was confirmed or suspected to have Coronavirus / COVID-19? No / Unsure 11/10/2021 9:52 AM PRODUCT DEVELOPMENT CARPENTER documented as of this encounter Miscellaneous Notes * Telephone Encounter - Rukhsana Bowden RN - 11/09/2021 12:58 PM PRODUCT DEVELOPMENT CARPENTER See [employer] message. Sent his refill request encounter to Dr Goyal. UCT DEVELOPMENT CARPENTER documented in this encounter Plan of Treatment Not on file documented as of this encounter Visit Diagnoses Not on filedocumented in this encounter Additional Health Concerns Assessment Noted Time PHQ-9 Depression Total Score: 10 021 2:58 PM CDT documented as of this encounter Care Teams Automatic Lump Making Machine Tender Relationship Specialty Start Date End Date Maya Goyal MD [address] [place] [address] PCP - General 05/03/04 11/14/22 No Ref-Primary, Physician PCP - General 11/15/22 Maya Goyal MD [address] [place] [address] Assigned PCP 06/27/12 10/17/23 Erlin Delcid MD [address] [address] Assigned Surgical Provider 09/12/20 Mehdi Bass DPM [id number] [place] [address] [address] [place] [address] Assigned Musculoskeletal Provider 08/14/21 10/27/22 [facility] [address] [place] [address] Assigned MTM Pharmacist 03/18/22 Maya Goyal MD [address] [facility] [address] [place] [address] Assigned Pain Medication Provider 10/02/22 03/23/23 Mehdi Bass DPM [id number] [place] [address] [address] [place] [address] Assigned Surgical Provider 10/28/22 [facility] [address] [place] [address] Assigned PCP 10/18/23 documented as of this encounter
--- OUTSIDE RECORDS SUMMARY | 2024-07-11 13:29 | XMS_ITS | Referral Summary ---
Author Organization [place] Address [address] [place] [address] Care Team Providers Care Medical Assistant Instructor Name Role Phone No Ref-Primary, Physician Primary Care Provider [facility] Unavailable Allergies Active Allergy Reactions Criticality Noted [...] Total Score(s): No flowsheet data found. Last [facility] website verification: 09/19/19 [email or web address] CKD (chronic kidney disease) stage 1, GFR [...] Sex Assigned at Male 09/17/2018 5:00 PM PAINTER MIRROR Gender Identity Male 09/17/2018 5:00 PM PAINTER MIRROR Sexual Orientation Straight 09/17/2018 5: 00 PM PAINTER MIRROR Last Filed Vital Signs Vital Sign Reading Time Taken Comments Blood Pressure 138/88 11/17/2021 2:13 PM PAINTER MIRROR Pulse 99 11/17/2021 2:13 PM PAINTER MIRROR Temperature 37.1 ??C (98.7 ??F) 11/17/2021 2:13 PM CS T Respiratory Rate 18 11/17/2021 2:13 PM PAINTER MIRROR Oxygen Saturation 98% 11/17/2021 2:13 PM PAINTER MIRROR Inhaled Oxygen Concentration - - Weight 154.7 kg (341 lb) 11/17/2021 2:13 PM PAINTER MIRROR Height 188 cm (6' 2) 11/17/2021 2:13 PM PAINTER MIRROR Body Mass Index 43.78 11/17/2021 2:13 PM PAINTER MIRROR Plan of Treatment Not on file Procedures Procedure Name Priority Date/Time Associated Diagnosis Comments URINE DRUG SCREEN CLINIC Routine 11/10/2021 10:09 AM PAINTER MIRROR Chronic, continuous use of opioids ALBUMIN RANDOM URINE QUANTITATIVE Routine 11/10/2021 10:09 AM PAINTER MIRROR Type 2 diabetes mellitus with stage 1 chronic kidney disease, without long-term current use of insulin (H) Benign essential hypertension BASIC METABOLIC PANEL Routine 11/10/2021 10:01 AM PAINTER MIRROR Type 2 diabetes mellitus with stage 1 chronic kidney disease, without long-term current use of insulin (H) Benign essential hypertension HEMOGLOBIN A1C Routine 11/10/2021 10:01 AM PAINTER MIRROR Type 2 diabetes mellitus with stage 1 chronic kidney disease, without long-term current use of insulin (H) EYE EXAM - HIM SCAN 05/20/2021 1 2:00 AM CDT LIPID REFLEX TO DIRECT LDL PANEL Routine 04/13/2021 4:09 PM CDT Hyperlipidemia LDL goal <100 COLONOSCOPY Routine 08/13/2019 10:[address] CHEST/ABDOMEN/PELVIS W CONTRAST STAT 02/18/2018 12:20 PM CDT HEPATITIS C SCREEN REFLEX TO HCV RNA QUANT AND GENOTYPE Routine 08/10/2017 11:22 AM PAINTER MIRROR Encounter for routine adult health examination without abnormal findings FECAL COLORECTAL CANCER SCREEN FIT Routine 06/25/2013 11:31 AM CDT Screen for colon cancer UA MACROSCOPIC WITH REFLEX TO MICRO Routine 10/13/2010 4:49 PM PAINTER MIRROR HTN (hypertension) from Last 3 Months or Most Recently Relevant to Health Maintenance Results * (ABNORMAL) Drug Abuse Screen Panel 13, Urine (Pain Care Package) - lab collect (11/10/2021 10:09 AMCST) [facility] Cannabinoids (54-hwz-4-carboxy -9-THC) Not Detected Not Detected, Indeterminate 11/10/2021 10:28 AM PAINTER MIRROR [facility] Comment:Cutoff for a negativ e cannabinoid is 50 ng/mL or less. Phencyclidine Not Detected Not Detected, Indeterminate 11/10/2021 10:28 AM PAINTER MIRROR [facility] Comment:Cutoff for a negativ e PCP is 25 ng/mL or less. Cocaine (Benzoylecgonine) Not Detected Not Detected, Indeterminate 11/10/2021 10:28 AM PAINTER MIRROR [facility] Comment:Cutoff for a negativ e cocaine is 150 ng/ml or less. Methamphetamine (d-Methamphetamin e) Not Detected Not Detected, Indeterminate 11/10/2021 10:28 AM PAINTER MIRROR [facility] Comment:Cutoff for a negativ e methamphetamine is 500 ng/ml or less. Opiates (Morphine) Not Detected Not Detected, Indeterminate 11/10/2021 10:28 AM PAINTER MIRROR [facility] Comment:Cutoff for a negativ e opiate is 100 ng/ml or less. Amphetamine (d-Amphetamine) Not Detected Not Detected, Indeterminate 11/10/2021 10:28 AM PAINTER MIRROR [facility] Comment:Cutoff for a negativ e amphetamine is 500 ng/mL or less. Benzodiazepines (Nordiazepam) Not Detected Not Detected, Indeterminate 11/10/2021 10:28 AM PAINTER MIRROR [facility] Comment:Cutoff for a negativ e benzodiazepine is 150 ng/ml or less. Tricyclic Antidepressants (Desipramine) Not Detected Not Detected, Indeterminate 11/10/2021 10:28 AM PAINTER MIRROR [facility] Comment:Cutoff for a negativ e tricyclic antidepressant is 300 ng/ml or less. Methadone Not Detected Not Detected, Indeterminate 11/10/2021 10:28 AM PAINTER MIRROR [facility] Comment:Cutoff for a negativ e methadone is 200 ng/ml or less. Barbiturates (Butalbital) Not Detected Not Detected, Indeterminate 11/10/2021 10:28 AM PAINTER MIRROR [facility] Comment:Cutoff for a negativ e barbituate is 200 ng/ml or less. Oxycodone Detected(A ) Not Detected, Indeterminate 11/10/2021 10:28 AM PAINTER MIRROR [facility] Comment: Cutoff for a positive oxycodone is greater than 100 ng/ml. This is an unconfirmed screening result to be used for medical purposes only. Propoxyphene (Norpropoxyphene) Not Detected Not Detected, Indeterminate 11/10/2021 10:28 AM PAINTER MIRROR [facility] Comment:Cutoff for a negativ e propoxyphene is 300 ng/ml or less. Buprenorphine Not Detected Not Detected, Indeterminate 11/10/2021 10:28 AM PAINTER MIRROR [facility] Comment:Cutoff for a negativ e buprenorphine is 10 ng/ml or less. Urine MID-STREAM URINE SPECIMEN / Unknown Non-blood Collection / Unknown 11/10/2021 10:09 AM PAINTER MIRROR 11/10/2021 10:09 AM PAINTER MIRROR Maya Goyal MD LAB - URINE ORDERABL ES Performing Organization Address City/[facility]/ZIP Co de Phone Number [facility] [address], [address] [place] [address], [place] [phone] * (ABNORMAL) Albumin Random Urine Quantitative with Creat Ratio (11/10/2021 10:09 AM PAINTER MIRROR) Creatinine Urine mg/dL 74 mg/dL 11/11/2021 11:04 AM PAINTER MIRROR [facility] Albumin Urine mg/L 14 mg/L 11/11/2021 11:04 AM PAINTER MIRROR [facility] Albumin Urine mg/g Cr 18.92(H) 0.00 - 17.00 mg/g Cr 11/11/2021 11:04 AM PAINTER MIRROR [facility] Urine MID-STREAM URINE SPECIMEN / Unknown Non-blood Collection / Unknown 11/10/2021 10:09 AM PAINTER MIRROR 11/10/2021 10:09 AM PAINTER MIRROR Maya Goyal MD LAB - URINE ORDERABL ES [facility] [address] Lab (no room number, 1st floor of clinic) [place] [address], [place] [phone] * (ABNORMAL) Hemoglobin A1c (11/10/2021 10:01 AM PAINTER MIRROR) Hemoglobin A1C 6.6(H) 0.0 - 5.6 % 11/10/2021 10:26 AM PAINTER MIRROR [facility] Comment: Normal <5.7% Prediabetes 5.7-6.4% ?? Diabetes 6.5% or higher Note: Adopted from ADA consensus guidelines. Blood BLOOD SPECIMEN / Unknown Venipuncture / Unknown 11/10/2021 10:01 AM PAINTER MIRROR 11/10/2021 10:02 AM PAINTER MIRROR Maya Goyal MD LAB - BLOOD ORDERABL ES [facility] [address], [address] [place] [address], [facility] [phone] * (ABNORMAL) Basic metabolic panel (Ca, Cl, CO2, Creat, Gluc, K, Na, BUN) (11/10/2021 10:01 AM PAINTER MIRROR) Sodium 131(L) 133 - 144 mmol/L 11/11/2021 8:39 AM PAINTER MIRROR [facility] Potassium 4.8 3.4 - 5.3 mmol/L 11/11/2021 8:39 AM PAINTER MIRROR [facility] Chloride 96 94 - 109 mmol/L 11/11/2021 8:39 AM PAINTER MIRROR [facility] Carbon Dioxide (CO2) 22 20 - 32 mmol/L 11/11/2021 8:39 AM PAINTER MIRROR [facility] Anion Gap 13 3 - 14 mmol/L 11/11/2021 8:39 AM PAINTER MIRROR [facility] Urea Nitrogen 11 7 - 30 mg/dL 11/11/2021 8:39 AM PAINTER MIRROR [facility] Creatinine 0.92 0.66 - 1.25 mg/dL 11/11/2021 8:39 AM PAINTER MIRROR [facility] Calcium 8.9 8.5 - 10.1 mg/dL 11/11/2021 8:39 AM PAINTER MIRROR [facility] Glucose 135(H) 70 - 99 mg/dL 11/11/2021 8:39 AM PAINTER MIRROR [facility] GFR Estimate >90 >60 mL/min/1.7 3m2 11/11/2021 8:39 AM PAINTER MIRROR [facility] Comment:Effective August 252020 eGFRcr in adults is calculated using the 2020 CKD-EPI creatinine equation which includes age and gender (Donis et al., NEJ, DOI: 10.1056/UYCRsw9867527) Blood BLOOD SPECIMEN / Unknown Venipuncture / Unknown 11/10/2021 10:01 AM PAINTER MIRROR 11/10/2021 10:02 AM PAINTER MIRROR Maya Goyal MD LAB - BLOOD ORDERABL ES [facility] [address] Lab (no room number, 1st floor of clinic) [place] [address], [facility] [phone] * EYE EXAM - HIM SCAN (05/20/2021 12:00 AM CDT) RETINOPATHY NEGATIVE 05/20/2021 Narrative Kya Riley - 05/20/2021 12:00 AM CDT DIABETIC EYE EXAM ETHEL EYE [facility] Provider Outside OTHER * (ABNORMAL) Lipid [...] LAB - BLOOD ORDERABL ES [facility] [address] Lab (no room number, 1st floor of clinic) [place] [address], [facility] [phone] * COLONOSCOPY (08/13/2019 10:22 AM PAINTER MIRROR) [facility] COLONOSCOPY [facility] Patient Name: Rafa Hickey ?Procedure [...] # [id number], [place] ?# 221, SN # [id number] was introduced through the anus ?and advanced [...] history of colonic polyps CPT copyright 2018 [employer]. All rights reserved. The codes documented in this report are preliminary and upon solutions engineer review may be revised to meet current compliance requirements. Electronically signed by Karlo Luis MD __ Karlo Luis MD 08/13/2019 10:51:03 AM I was physically present for the entire viewing portion of the exam. Karlo Luis MD Number of Addenda: 0 Note Initiated On: 08/13/2019 10:22 AM MRN: ?[id number] Procedure Date: ? 08/13/2019 10:22:02 AM Scope Withdrawal Time: 0 hours 6 minutes 13 seconds Total Procedure Duration: 0 hours 18 minutes 55 seconds Estimated Blood Loss: ? Scope In: 10:25:38 AM Scope Out: 10:44:33 AM RADIOLOGY RESULTS 08/13/2019 10:2 2 AM PAINTER MIRROR Maya Goyal MD PROCEDURES RADIOLOGY RESULTS * [...] RNA Quant and Genotype (08/10/2017 11:22 AM PAINTER MIRROR) Hepatitis C Antibody Nonreactive NR^Nonre active 08/13/2017 10:46 AM PAINTER MIRROR [facility] Comment: Assay performance characteristics have not been established for newborns, infants, and children Blood specimen (specimen) 08/10/2017 11:22 AM PAINTER MIRROR 08/10/2017 11:23 AM PAINTER MIRROR Maya Goyal MD LAB - BLOOD ORDERABL ES [facility] [place] [address] [address] * Fecal colorectal cancer screen (FIT) (06/25/2013 11:31 AM CDT) Occult Blood Scn FIT Negative NEG [facility] Stool specimen (specimen) 06/25/2013 11:31 AM CDT 06/25/2013 11:32 AM CDT Maya Goyal MD LAB - STOOLS ORDERAB LES Performing Organization Address City/[facility]/ZIP Co de Phone Number [facility] * (ABNORMAL) UA macroscopic with reflex to micro (10/13/2010 4:49 PM PAINTER MIRROR) Color Urine Yellow [facility] Appearance Urine Clear [facility] Glucose Urine Negative NEG mg/dL [facility] Bilirubin Urine Negative NEG [facility] Ketones Urine Negative NEG mg/dL [facility] Specific [place] Urine 1.015 1.003 - 1.035 [facility] Blood Urine Moderate(A) NEG [facility] pH Urine 5.5 5.0 - 7.0 pH [facility] Protein Albumin Urine Negative NEG mg/dL [facility] Urobilinogen Urine 0.2 0.2 - 1.0 EU/dL [facility] Nitrite Urine Negative NEG [facility] Leukocyte Esterase Urine Negative NEG [facility] Source Midstream Urine [facility] Urine specimen (specimen) 10/13/2010 4:49 PM PAINTER MIRROR 10/13/2010 4:54 PM PAINTER MIRROR Maya Goyal MD LAB - URINE ORDERABL ES Performing Organization Address City/[facility]/ZIP Co de Phone Number [facility] from Last 3 Months or Most Recently Relevant to Health Maintenance Advance Directives For more information, please contact: [phone] * Full Code (Latest Code Status on [...] 1:26 PM 09/12/2017 10:19 AM Care Teams Medical Assistant Instructor Relationship Specialty Start Date End Date No Ref-Primary, Physician PCP - General 11/15/[address] [address] Assigned PCP 10/18/23
--- OUTSIDE RECORDS SUMMARY | 2024-07-11 13:29 | XMS_ITS | Referral Summary ---
Author Organization [facility] Address [address] [place] [address] Care Team Providers Care Bryologist Name Role Phone Shar Hoff MD Unavailable [phone] Doctor, No Primary Care Provider Unavailabl e [...] - 145 mMol/L 07/19/2016 5:16 AM T [facility] Potassium 4.0 3.5 - 5.1 mMol/L 07/19/2016 5:16 AM [facility] Chloride 104 98 - 112 mMol/L 07/19/2016 5:16 AM [facility] Carbon Dioxide 25 21 - 32 mMol/L 07/19/2016 5:16 AM [facility] BUN (Urea Nitro) 17 7 - 24 mg/dL 07/19/2016 5:16 AM [facility] Creatinine 0.83 0.70 - 1.30 mg/dL 07/19/2016 5:16 AM [facility] Est GFR (CKD-EPI) >60 >60 mL/min 07/19/2016 5:16 AM [facility] EST GFR IF AM >60 >60 mL/min 07/19/2016 5:16 AM [facility] Glucose 99 74 - 106 mg/dL 07/19/2016 5:16 AM [facility] Calcium, Serum 8.4(L) 8.5 - 10.1 mg/dL 07/19/2016 5:16 AM [facility] Anion Gap 11.0 0.0 - 15.0 mMol/L 07/19/2016 5:16 AM [facility] Blood 07/19/2016 4:45 AM CDT 07/19/2016 4:48 AM CDT Brigette Pena MD CHEMISTRY ORDERABLE [facility] [address] [address] from Last 3 Months or Most Recently Relevant to Health Maintenance Advance Directives For more information, please contact: [phone] * Full Code (Latest Code Status on File) Date Activated Date Inactivated Comments 07/19/2016 6:14 AM 07/19/2016 4:02 PM Question Answer Comments How was code status determined? Patient Care Teams Bryologist Relationship Specialty Start Date End Date Doctor, No No ad PCP - General Radiology 01/01/23 Shar Hoff MD [address] [place] [address] [address] [place] [address] Neurology 01/01/23
--- OUTSIDE RECORDS SUMMARY | 2024-07-11 13:30 | XMS_ITS | Encounter Summary ---
Author Organization [place] Address [address] [place] [address] Care Team Providers Care Millwork Estimator Name Role Phone Maya Goyal MD Primary Care Provider [phone] Maya Goyal MD Unavailable Mehdi Sen MD Unavailable [phone] Erlin Delcid MD Unavailable [phone] Elicia Bedoya [facility] Unavailable [phone] Kae Whipple [facility] Unavailable [phone] Mehdi Bass DPM Unavailable [phone] Kae Whipple [facility] Unavailable [phone] Maya Goyal MD Unavailable No Ref-Primary, Physician Primary Care Provider Mehdi Bass DPM Unavailable [phone] [facility] Unavailable Reason for Visit * Reason Onset Date Comments Appointment 08/24/2020 Referral to Urol jacy Encounter Details Date Type Department Care Team (Late st Contact Info) Description 08/24/2020 [facility] [address] [place] [address] Unknown Appointment (Referral to Urology) [...] Sex Assigned at Male 09/17/2018 5:00 PM STILL TENDER Gender Identity Male 09/17/2018 5:00 PM STILL TENDER Sexual Orientation Straight 09/17/2018 5: 00 PM STILL TENDER COVID-19 Exposure Response Date Recorded In the last month, have you been in contact with someone who was confirmed or suspected to have Coronavirus / COVID-19? No / Unsure 08/27/2020 11:58 AM STILL TENDER documented as of this encounter Miscellaneous Notes * Telephone Encounter - Smitha Harris - 08/24/2020 1:34 PM CST [facility] Call Center Phone Message May a [...] Taken: Message routed to: Other: [facility] Urology- [place] Travel Screening: Not Applicable L TENDER documented in this encounter Plan of Treatment Not on file documented as of this encounter Visit Diagnoses Not on filedocumented in this encounter Additional Health Concerns Infection Onset Date Last Indicated Resolved Time COVID-19 08/27/2020 08/27/2020 09/17/2020 11:4 0 PM STILL TENDER Assessment Noted Time PHQ-9 Depression Total Score: 10 020 8:55 AM CDT documented as of this encounter Care Teams Millwork Estimator Relationship Specialty Start Date End Date Maya Goyal MD [address] [facility] [address] [place] [address] PCP - General 05/03/04 11/14/22 No Ref-Primary, Physician PCP - General 11/15/22 Maya Goyal MD [address] [facility] [address] [place] [address] Assigned PCP 06/27/12 10/17/23 Mehdi Sen MD [address] [place] [address] Assigned Musculoskeletal Provider 07/16/20 12/18/20 Erlin Delcid MD [address] [facility] [address] [address] Assigned Surgical Provider 09/12/20 Elicia Bedoya [facility] [address] [place] [address] [address] [place] [address] Pharmacist Pharmacist 11/09/20 12/06/20 Kae Whipple [facility] [address] [place], [place] [address] Pharmacist Pharmacist 11/30/20 12/06/20 Mehdi Bass DPM [address] [facility] [address] [place], [place] [address] Assigned Musculoskeletal Provider 08/14/21 10/27/22 Kae Whipple [facility] [address] [place], [place] [address] Assigned MTM Pharmacist 03/18/22 Maya Goyal MD [address] [facility] [address] [place], [place] [address] Assigned Pain Medication Provider 10/02/22 03/23/23 Mehdi Bass DPM [id number] [facility] [address] [place], [place] [address] Assigned Surgical Provider 10/28/[address] [address] Assigned PCP 10/18/23 documented as of this encounter
--- OUTSIDE RECORDS SUMMARY | 2024-07-11 13:30 | XMS_ITS | Encounter Summary ---
Author Organization [place] Address [address] [place] [address] Care Team Providers Care Bootmaker Name Role Phone Maya Goyal MD Primary Care Provider [phone] Maya Goyal MD Unavailable Mehdi Sen MD Unavailable [phone] Erlin Delcid MD Unavailable Elicia Bedoya [facility] Unavailable Kae Whipple [facility] Unavailable Mehdi Bass DPM Unavailable [phone] Kae Whipple [facility] Unavailable Maya Goyal MD Unavailable No Ref-Primary, Physician Primary Care Provider Mehdi Bass DPM Unavailable [phone] [facility] Unavailable Reason for Visit * Reason Comments Medication Refill Encounter Details Date Type Department Care Team (Late st Contact Info) Description 10/25/2020 [facility] [address] [place] [address] Maya Goyal MD [address] [place] [address] Medication Refill Social History Tobacco [...] Sex Assigned at Male 09/17/2018 5:00 PM POWER GENERATION EQUIPMENT REPAIRER Gender Identity Male 09/17/2018 5:00 PM POWER GENERATION EQUIPMENT REPAIRER Sexual Orientation Straight 09/17/2018 5: 00 PM POWER GENERATION EQUIPMENT REPAIRER COVID-19 Exposure Response Date Recorded In the last month, have you been in contact with someone who was confirmed or suspected to have Coronavirus / COVID-19? No / Unsure 10/21/2020 10:08 AM POWER GENERATION EQUIPMENT REPAIRER documented as of this encounter Miscellaneous Notes * Telephone Encounter - Susan Kohler RN - 10/26/2020 11:53 AM POWER GENERATION EQUIPMENT REPAIRER Patient has refills remaining with requesting pharmacy. Susan Cancino - Registered Nurse [facility] R GENERATION EQUIPMENT REPAIRER documented in this encounter Plan of Treatment Not on file documented as of this encounter Visit Diagnoses Diagnosis Type 2 diabetes mellitus with stage 1 chronic kidney disease, without long-term current use of insulin (H) documented in this encounter Additional Health Concerns Assessment Noted Time PHQ-9 Depression Total Score: 10 020 8:55 AM CDT documented as of this encounter Care Teams Bootmaker Relationship Specialty Start Date End Date Maya Goyal MD [address] [place] [address] PCP - General 05/03/04 11/14/22 No Ref-Primary, Physician PCP - General 11/15/22 Maya Goyal MD [address] [place] [address] Assigned PCP 06/27/12 10/17/23 Mehdi Sen MD [address] [place] [address] Assigned Musculoskeletal Provider 07/16/20 12/18/20 Erlin Delcid MD [address] [address] Assigned Surgical Provider 09/12/20 Elicia Bedoya [facility] [address] [place] [address] [address] [place] [address] Pharmacist Pharmacist 11/09/20 12/06/20 Kae Whipple [facility] [address] [place] [address] Pharmacist Pharmacist 11/30/20 12/06/20 Mehdi Bass DPM [phone] [address] [place] [place] [address] Assigned Musculoskeletal Provider 08/14/21 10/27/22 Kae Whipple [facility] [address] [place] [address] Assigned MTM Pharmacist 03/18/22 Maya Goyal MD [address] [facility] [address] [place] [address] Assigned Pain Medication Provider 10/02/22 03/23/23 Mehdi Bass DPM [address] [place] [address] Assigned Surgical Provider 10/28/[address] [address] Assigned PCP 10/18/23 documented as of this encounter
--- OUTSIDE RECORDS SUMMARY | 2024-07-11 13:30 | XMS_ITS | Encounter Summary ---
Author Organization [facility] Address [address] [place] [address]. [place] [address] Care Team Providers Care Physical Therapy Nurse Name Role Phone Maya Goyal MD Primary Care Provider [phone] Maya Goyal MD Unavailable Mehdi Sen MD Unavailable [phone] Erlin Delcid MD Unavailable [phone] Elicia Bedoya [facility] Unavailable [phone] Kae Whipple [facility] Unavailable [phone] Mehdi Bass DPM Unavailable [phone] Kae Whipple [facility] Unavailable [phone] Maya Goyal MD Unavailable No Ref-Primary, Physician Primary Care Provider Mehdi Bass DPM Unavailable [phone] [facility] Unavailable Reason for Visit * Reason Onset Date Comments Referral 05/02/2019 New Eval Encounter Details Date Type Department Care Team (Late st Contact Info) Description 05/02/2019 [facility] [place] [id number] [facility] [address] [place], [place] [id number] [facility] Social History [...] Sex Assigned at Male 09/17/2018 5:00 PM VICE PRESIDENT BIOSTATISTICS Gender Identity Male 09/17/2018 5:00 PM VICE PRESIDENT BIOSTATISTICS Sexual Orientation Straight 09/17/2018 5: 00 PM VICE PRESIDENT BIOSTATISTICS documented as of this encounter Miscellaneous Notes * Telephone Encounter - Stephanie Rock - 05/02/2019 2:18 PM CDT Referral received from Marli Velasco NP at [facility] for new patient evaluation andmanagement. Diagnosis of Lumbar DDD. Patient previously seen by Jenn Gaspar on 12/19/18 -- can schedule a follow up. Stephanie Rock Irrigator Overhead [facility] documented in this encounter Plan of Treatment Not on file documented as of this encounter Visit Diagnoses Not on filedocumented in this encounter Additional Health Concerns Infection Onset Date Last Indicated Resolved Time COVID-19 08/27/2020 08/27/2020 09/17/2020 11:4 0 PM VICE PRESIDENT BIOSTATISTICS Assessment Noted Time PHQ-9 Depression Total Score: 4 09/23/20 18 2:33 PM VICE PRESIDENT BIOSTATISTICS documented as of this encounter Care Teams Physical Therapy Nurse Relationship Specialty Start Date End Date Maya Goyal MD [address] [place] [address] PCP - General 05/03/04 11/14/22 No Ref-Primary, Physician PCP - General 11/15/22 Maya Goyal MD [address] [place] [address] Assigned PCP 06/27/12 10/17/23 Mehdi Sen MD [address]09 [place] [address] Assigned Musculoskeletal Provider 07/16/20 12/18/20 Erlin Delcid MD [address] [facility] 500 [place] [address] Assigned Surgical Provider 09/12/20 Elicia Bedoya, [facility] [address] [facility] [address] [place] [address] Pharmacist Pharmacist 11/09/20 12/06/20 Kae Whipple [facility] [address] [place] [address] Pharmacist Pharmacist 11/30/20 12/06/20 [place] [address] [employer] [address] [place] [address] Assigned Musculoskeletal Provider 08/14/21 10/27/22 Kae Whipple [facility] [address] [place], [place] [address] Assigned MTM Pharmacist 03/18/22 Maya Goyal MD [address] [facility] 200 [place] [address] Assigned Pain Medication Provider 10/02/22 03/23/23 Meh[place] [address] [place] [address] Assigned Surgical Provider 10/28/22 [facility] [address] [address] Assigned PCP 10/18/23 documented as of this encounter
--- OUTSIDE RECORDS SUMMARY | 2024-07-11 13:30 | XMS_ITS | Encounter Summary ---
Author Organization [facility] Address [address] [place] [address] Care Team Providers Care Parent Trainer Name Role Phone Maya Goyal MD Primary Care Provider [phone] Maya Goyal MD Unavailable Mehdi Sen MD Unavailable [phone] Erlin Delcid MD Unavailable [phone] Elicia Bedoya [facility] Unavailable [phone] Kae Whipple [facility] Unavailable Mehdi Bass DPM Unavailable [phone] Kae Whipple [facility] Unavailable Maya Goyal MD Unavailable No Ref-Primary, Physician Primary Care Provider Mehdi Bass DPM Unavailable [phone] [facility] Unavailable Encounter Details Date Type Department Care Team (Late st Contact Info) Description 03/14/2019 Documentation Only [facility] [address] [place] [address] Maya Goyal MD [address] [place] [address] Essential hypertension, benign (Primary Dx); [...] Sex Assigned at Male 09/17/2018 5:00 PM LEATHER POLISHER Gender Identity Male 09/17/2018 5:00 PM LEATHER POLISHER Sexual Orientation Straight 09/17/2018 5: 00 PM LEATHER POLISHER documented as of this encounter Plan of Treatment Not on file documented as of this encounter Results * (ABNORMAL) Albumin Random Urine Quantitative with Creat Ratio (03/14/2019 9:17 AM CDT) Creatinine Urine 239 mg/dL 03/14/2019 8:18 PM CDT [facility] Albumin Urine mg/L 162 mg/L 03/14/2019 8:41 PM CDT [facility] Albumin Urine mg/g Cr 67.78(H) 0 - 17 mg/g Cr 03/14/2019 8:41 PM CDT [facility] Urine specimen (specimen) 03/14/2019 9:17 AM CDT 03/14/2019 9:18 AM CDT Maya Goyal MD LAB - URINE ORDERABL ES [facility] [address] [place] [address] * (ABNORMAL) Hemoglobin A1c (03/14/2019 9:16 AM CDT) Hemoglobin A1C 7.0(H) 0 - 5.6 % 03/14/2019 9:38 AM CDT [facility] Comment: Normal <5.7% Prediabetes 5.7-6.4% ??Diabetes 6.5% or higher - adopted from ADA consensus guidelines. Blood specimen (specimen) 03/14/2019 9:16 AM CDT 03/14/2019 9:17 AM CDT Maya Goyal MD LAB - BLOOD ORDERABL ES [facility] [address] [facility] [address] [place] [address] * (ABNORMAL) Lipid panel reflex to direct LDL Fasting (03/14/2019 9:16 AM CDT) Cholesterol 188 <200 mg/dL 03/14/2019 6:29 PM CDT [facility] Triglycerides 268(H) <150 mg/dL 03/14/2019 6:29 PM CDT [facility] Comment: Borderline high: ??150-199 mg/dl High: ? 200-499 mg/dl Very high: ? >499 mg/dl Fasting specimen HDL Cholesterol 32(L) >39 mg/dL 9 6:36 PM CDT [facility] LDL Cholesterol Calculated 102(H) <100 mg/dL 03/14/2019 6:36 PM CDT [facility] Comment: Above desirable: ??100-129 mg/dl Borderline High: ??130-159 mg/dL High: ? 160-189 mg/dL Very high: ? >189 mg/dl Non HDL Cholesterol 156(H) <130 mg/dL 03/14/2019 6:36 PM CDT [facility] Comment: Above Desirable: ??130-159 mg/dl Borderline high: ??160-189 mg/dl High: ? 190-219 mg/dl Very high: ? >219 mg/dl Blood specimen (specimen) 03/14/2019 9:16 AM CDT 03/14/2019 9:17 AM CDT Maya Goyal MD LAB - BLOOD ORDERABL ES [facility] [address] [place] [address] * (ABNORMAL) Basic metabolic panel (03/14/2019 9:16 AM CDT) Sodium 140 133 - 144 mmol/L 03/14/2019 6:09 PM CDT [facility] Potassium 4.5 3.4 - 5.3 mmol/L 03/14/2019 6:09 PM CDT [facility] Chloride 103 94 - 109 mmol/L 03/14/2019 6:09 PM CDT [facility] Carbon Dioxide 28 20 - 32 mmol/L 03/14/2019 6:29 PM CDT [facility] Anion Gap 9 3 - 14 mmol/L 03/14/2019 6:29 PM CDT [facility] Glucose 155(H) 70 - 99 mg/dL 03/14/2019 6:29 PM CDT [facility] Comment:Fasting specimen Urea Nitrogen 11 7 - 30 mg/dL 03/14/2019 6:29 PM T [facility] Creatinine 0.79 0.66 - 1.25 mg/dL 03/14/2019 6:29 PM CDT [facility] GFR Estimate >90 >60 mL/min/{1 .73_m2} 03/14/2019 6:29 PM CDT [facility] Comment: Non GFR Calc Starting 09/10/2018, serum creatinine based estimated GFR (eGFR) will be calculated using the Chronic Kidney Disease Epidemiology Collaboration (CKD-EPI) equation. GFR Estimate If Black >90 >60 mL/min/{1 .73_m2} 03/14/2019 6:29 PM CDT [facility] Comment: GFR Calc Starting 09/10/2018, serum creatinine based estimated GFR (eGFR) will be calculated using the Chronic Kidney Disease Epidemiology Collaboration (CKD-EPI) equation. Calcium 9.3 8.5 - 10.1 mg/dL 03/14/2019 6:29 PM CDT [facility] Blood specimen (specimen) 03/14/2019 9:16 AM CDT 03/14/2019 9:17 AM CDT Maya Goyal MD LAB - BLOOD ORDERABL ES [facility] [address] [place] [address] documented in this encounter Visit Diagnoses Diagnosis Essential hypertension, benign- Primary Hyperlipidemia LDL goal <130 Other and unspecified hyperlipidemia Proteinuria, unspecified type Abnormal blood sugar Other abnormal glucose documented in this encounter Additional Health Concerns Infection Onset Date Last Indicated Resolved Time COVID-19 08/27/2020 08/27/2020 09/17/2020 11:4 0 PM LEATHER POLISHER Assessment Noted Time PHQ-9 Depression Total Score: 4 09/23/20 18 2:33 PM LEATHER POLISHER documented as of this encounter Care Teams Parent Trainer Relationship Specialty Start Date End Date Maya Goyal MD [address] [place] [address] PCP - General 05/03/04 11/14/22 No Ref-Primary, Physician PCP - General 11/15/22 Maay Goyal MD [address] [place] [address] Assigned PCP 06/27/12 10/17/23 Mehdi Sen MD 9 [place] [address] Assigned Musculoskeletal Provider 07/16/20 12/18/20 Erlin Delcid MD [address] [address] Assigned Surgical Provider 09/12/20 Elicia Bedoya [facility] [address] [facility] 812 [place] [address] Pharmacist Pharmacist 11/09/20 12/06/20 Kae Whipple [facility] [address] [place] [address] Pharmacist Pharmacist 11/30/20 12/06/20 Mehdi Bass DPM [id number] [place] [address] [address] [place] [address] Assigned Musculoskeletal Provider 08/14/21 10/27/22 Kae Whipple [facility] [address] [place] [address] Assigned MTM Pharmacist 03/18/22 Maya Goyal MD [address] [facility] 200 [place] [address] Assigned Pain Medication Provider 10/02/22 03/23/23 Meh[place] [address] [facility] [address] [place] [address] Assigned Surgical Provider 10/28/[address] [facility] 303 [place] [address] Assigned PCP 10/18/23 documented as of this encounter
--- OUTSIDE RECORDS SUMMARY | 2024-07-11 13:30 | XMS_ITS | Encounter Summary ---
Author Organization [facility] Address [address] [place] [address] Care Team Providers Care Freight Engineer Name Role Phone Maya Goyal MD Primary Care Provider [phone] Maya Goyal MD Unavailable Mehdi Sen MD Unavailable [phone] Erlin Delcid MD Unavailable [phone] Elicia Bedoya [facility] Unavailable [phone] Kae Whipple [facility] Unavailable Mehdi Bass DPM Unavailable [phone] Kae Whipple [facility] Unavailable [phone] Maya Goayl MD Unavailable No Ref-Primary, Physician Primary Care Provider Mehdi Bass DPM Unavailable [phone] [facility] Unavailable Reason for Visit * Reason Onset Date Comments MyChart Communication 09/29/2020 Encounter Details Date Type Department Care Team (Late st Contact Info) Description 09/29/2020 [facility] [address] [place] [address] Maya Goyal MD [address] [place] [address] MyChart Communication Social History Tobacco Use Types [...] Sex Assigned at Male 09/17/2018 5:00 PM EXERCISE PHYSIOLOGY PROFESSOR Gender Identity Male 09/17/2018 5:00 PM EXERCISE PHYSIOLOGY PROFESSOR Sexual Orientation Straight 09/17/2018 5: 00 PM EXERCISE PHYSIOLOGY PROFESSOR COVID-19 Exposure Response Date Recorded In the last month, have you been in contact with someone who was confirmed or suspected to have Coronavirus / COVID-19? Yes 09/07/2020 1:45 PM EXERCISE PHYSIOLOGY PROFESSOR documented as of this encounter Miscellaneous Notes * Telephone Encounter - Rukhsana Yo RN - 09/29/2020 12:06 PM CST My chart message sent by patient. My chart message sent to patient. CISE PHYSIOLOGY PROFESSOR * Telephone Encounter - Rukhsana Yo RN - 09/29/2020 11:34 AM CST My chart message sent by patient. My chart message sent to patient. CISE PHYSIOLOGY PROFESSOR documented in this encounter Plan of Treatment Not on file documented as of this encounter Visit Diagnoses Not on filedocumented in this encounter Additional Health Concerns Assessment Noted Time PHQ-9 Depression Total Score: 10 04/15/ 020 8:55 AM CDT documented as of this encounter Care Teams Freight Engineer Relationship Specialty Start Date End Date Maya Goyal MD [address] [place] [address] PCP - General 05/03/04 11/14/22 No Ref-Primary, Physician PCP - General 11/15/22 Maya Goyal MD [address] [facility] 200 [place] [address] Assigned PCP 06/27/12 10/17/23 Mehdi Sen MD [address] [place], [place] [address] Assigned Musculoskeletal Provider 07/16/20 12/18/20 Erlin Delcid MD [address] [address] Assigned Surgical Provider 09/12/20 Elicia Bedoya [facility] [address] [place] [address] 812 [place], [place] [address] Pharmacist Pharmacist 11/09/20 12/06/20 Kae Whipple [facility] [address] [place], [place] [address] Pharmacist Pharmacist 11/30/20 12/06/20 [place] D[place] [address] [facility] [address] [place], [place] [address] Assigned Musculoskeletal Provider 08/14/21 10/27/22 Kae Whipple [facility] [address] [place], [place] [address] Assigned MTM Pharmacist 03/18/22 Maya Goyal MD [address] [facility] 200 [place], [place] [address] Assigned Pain Medication Provider 10/02/22 03/23/23 Meh[place] Bass D[place] [address] [facility] [address] [place] [address] Assigned Surgical Provider 10/28/[address] [address] Assigned PCP 10/18/23 documented as of this encounter
--- OUTSIDE RECORDS SUMMARY | 2024-07-11 13:30 | XMS_ITS | Encounter Summary ---
Author Organization [facility] Address [address] [place] [address]. [place] [address] Care Team Providers Care Transaction Processor Name Role Phone Maya Goyal MD Primary Care Provider Maya Goyal MD Unavailable Erlin Delcid MD Unavailable Mehdi Bass DPM Unavailable Kae Whipple [facility] Unavailable [phone] Maya Goyal MD Unavailable No Ref-Primary, Physician Primary Care Provider Mehdi Bass DPM Unavailable [facility] Unavailable Reason for Visit * Reason Comments Medication Refill Encounter Details Date Type Department Care Team (Late st Contact Info) Description 06/25/2021 [facility] [address] [place] [address] Maya Goyal MD [address] [place] [address] Medication Refill Social History Tobacco [...] Sex Assigned at Male 09/17/2018 5:00 PM PEST CONTROL CHEMICAL TECHNICIAN Gender Identity Male 09/17/2018 5:00 PM PEST CONTROL CHEMICAL TECHNICIAN Sexual Orientation Straight 09/17/2018 5: 00 PM PEST CONTROL CHEMICAL TECHNICIAN documented as of this encounter Miscellaneous Notes * Telephone Encounter - Celestino Latham RN - 06/27/2021 2:46 PM CDT Prescription approved per [facility] Refill Protocol. documented in this encounter Plan of Treatment Not on file documented as of this encounter Visit Diagnoses Diagnosis Moderate episode of recurrent major depressive disorder (H)- Primary documented in this encounter Additional Health Concerns Assessment Noted Time PHQ-9 Depression Total Score: 10 021 2:58 PM CDT documented as of this encounter Care Teams Transaction Processor Relationship Specialty Start Date End Date Maya Goyal MD [address] [place] [address] PCP - General 05/03/04 11/14/22 No Ref-Primary, Physician PCP - General 11/15/22 Maya Goyal MD [address] [place] [address] Assigned PCP 06/27/12 10/17/23 Erlin Delcid MD [address] [facility] 500 [place] [address] Assigned Surgical Provider 09/12/20 Mehdi Bass DPM [address] [facility] [address] [place] [address] Assigned Musculoskeletal Provider 08/14/21 10/27/22 Kae Whipple [facility] 303 [place] [address] Assigned MTM Pharmacist 03/18/22 Maya Goyal MD [address] [facility] 200 [place] [address] Assigned Pain Medication Provider 10/02/22 03/23/23 [place] D[place] [address] [facility] [address] [place] [address] Assigned Surgical Provider 10/28/22 [facility] [address] [place] [address] Assigned PCP 10/18/23 documented as of this encounter
--- OUTSIDE RECORDS SUMMARY | 2024-07-11 13:30 | XMS_ITS | Encounter Summary ---
Author Organization [facility] Address [address] [place] [address]. [place] [address] Care Team Providers Care Office Technologist Name Role Phone Maya Goyal MD Primary Care Provider [phone] Maya Goyal MD Unavailable Erlin Delcid MD Unavailable Mehdi Bass DPM Unavailable Kae Whipple [facility] Unavailable Maya Goyal MD Unavailable No Ref-Primary, Physician Primary Care Provider Mehdi Bass DPM Unavailable [phone] [facility] Unavailable Reason for Visit * Reason Onset Date Comments Orders 09/04/2021 Encounter Details Date Type Department Care Team (Late st Contact Info) Description 09/04/2021 [facility] [address] [place] [address] Maya Goyal MD [address] [place] [address] Orders Social History Tobacco Use [...] Sex Assigned at Male 09/17/2018 5:00 PM GROUP WORK PROGRAM DIRECTOR Gender Identity Male 09/17/2018 5:00 PM GROUP WORK PROGRAM DIRECTOR Sexual Orientation Straight 09/17/2018 5: 00 PM GROUP WORK PROGRAM DIRECTOR COVID-19 Exposure Response Date Recorded In the last month, have you been in contact with someone who was confirmed or suspected to have Coronavirus / COVID-19? No / Unsure 08/17/2021 12:57 PM GROUP WORK PROGRAM DIRECTOR documented as of this encounter Miscellaneous Notes * Telephone Encounter - Rukhsana Bowden RN - 09/06/2021 10:08 AM GROUP WORK PROGRAM DIRECTOR Sent [employer] message. P WORK PROGRAM DIRECTOR documented in this encounter Plan of Treatment Not on file documented as of this encounter Visit Diagnoses Not on filedocumented in this encounter Additional Health Concerns Assessment Noted Time PHQ-9 Depression Total Score: 10 021 2:58 PM CDT documented as of this encounter Care Teams Office Technologist Relationship Specialty Start Date End Date Maya Goyal MD [address] [place] [address] PCP - General 05/03/04 11/14/22 No Ref-Primary, Physician PCP - General 11/15/22 Maya Goyal MD [address] [place] [address] Assigned PCP 06/27/12 10/17/23 Erlin Delcid MD [address] [address] Assigned Surgical Provider 09/12/20 Mehdi Bass DPM [address] [facility] [address] [place] [address] Assigned Musculoskeletal Provider 08/14/21 10/27/22 Kae Whipple [facility] [address] [place], [place] [address] Assigned MTM Pharmacist 03/18/22 Maya Goyal MD 303 [facility] 200 [place], [place] [address] Assigned Pain Medication Provider 10/02/22 03/23/23 Mehdi Bass DPM [address] [facility] [address] [place] [address] Assigned Surgical Provider 10/28/22 [facility] 303 [place], [place] [address] Assigned PCP 10/18/23 documented as of this encounter
--- OUTSIDE RECORDS SUMMARY | 2024-07-11 13:30 | XMS_ITS | Encounter Summary ---
Author Organization [facility] Address [address] [place] [address]. [place] [address] Care Team Providers Care Apricot Washer Name Role Phone Maya Goyal MD Primary Care Provider [phone] Maya Goyal MD Unavailable Erlin Delcid MD Unavailable [phone] Mehdi Bass DPQuita Unavailable [phone] Kae Whipple [facility] Unavailable Maya Goyal MD Unavailable No Ref-Primary, Physician Primary Care Provider Mehdi Bass DPM Unavailable [phone] [facility] Unavailable Encounter Details Date [...] Sex Assigned at Male 09/17/2018 5:00 PM TELEVISION ANNOUNCER Gender Identity Male 09/17/2018 5:00 PM TELEVISION ANNOUNCER Sexual Orientation Straight 09/17/2018 5: 00 PM TELEVISION ANNOUNCER COVID-19 Exposure Response Date Recorded In the [...] documented as of this encounter Care Teams Apricot Washer Relationship Specialty Start Date End Date Maya Goyal MD [address] [place] [address] PCP - General 05/03/04 11/14/22 No Ref-Primary, Physician PCP - General 11/15/22 Maya Goyal MD [address] [place] [address] Assigned PCP 06/27/12 10/17/23 Erlin Delcid MD [address] [address] Assigned Surgical Provider 09/12/20 [place] [address] [facility] [address] [place] [address] Assigned Musculoskeletal Provider 08/14/21 10/27/22 Kae Whipple [facility] [address] [place] [address] Assigned MTM Pharmacist 03/18/22 Maya Goyal MD [address] [place] [address] Assigned Pain Medication Provider 10/02/22 03/23/23 [place] [address] [facility] [address] [place], [place] [address] Assigned Surgical Provider 10/28/[address] [facility] [address] [place], [place] [address] Assigned PCP 10/18/23 documented as of this encounter
--- OUTSIDE RECORDS SUMMARY | 2024-07-11 13:30 | XMS_ITS | Encounter Summary ---
Author Organization [facility] Address [address] [place] [address]. [place] [address] Care Team Providers Care Sales And Service Technician Name Role Phone Maya Goyal MD Primary Care Provider [phone] Maya Goyal MD Unavailable Erlin Delcid MD Unavailable Mehdi Bass DPM Unavailable Kae Whipple [facility] Unavailable Maya Goyal MD Unavailable No Ref-Primary, Physician Primary Care Provider Mehdi Bass DPM Unavailable [facility] Unavailable Reason for Visit * Reason Comments Medication Refill Encounter Details Date Type Department Care Team (Late st Contact Info) Description 07/20/2021 [facility] [address] [place] [address] Maya Goyal MD [address] [place] [address] Medication Refill Social History Tobacco [...] Sex Assigned at Male 09/17/2018 5:00 PM DIRECTOR OF EVENTS Gender Identity Male 09/17/2018 5:00 PM DIRECTOR OF EVENTS Sexual Orientation Straight 09/17/2018 5: 00 PM DIRECTOR OF EVENTS documented as of this encounter Miscellaneous Notes * Telephone Encounter - Rukhsana Yo RN - 07/20/2021 3:55 PM CDT Prescription approved per [facility] Refill Protocol. * Telephone Encounter [...] documented as of this encounter Care Teams Sales And Service Technician Relationship Specialty Start Date End Date Maya Goyal MD [address] [place] [address] PCP - General 05/03/04 11/14/22 No Ref-Primary, Physician PCP - General 11/15/22 Maya Goyal MD [address] [place] [address] Assigned PCP 06/27/12 10/17/23 Erlin Delcid MD [address] [address] Assigned Surgical Provider 09/12/20 Mehdi [place] [address] [facility] [address] [place] [address] Assigned Musculoskeletal Provider 08/14/21 10/27/22 Kae Whipple [facility] [address] [place] [address] Assigned MTM Pharmacist 03/18/22 Maya Goyal MD [address] [facility] 200 [place] [address] Assigned Pain Medication Provider 10/02/22 03/23/23 Meh[place] [address] [facility] [address] [place] [address] Assigned Surgical Provider 10/28/[address] [facility] [address] [place], [place] [address] Assigned PCP 10/18/23 documented as of this encounter
--- OUTSIDE RECORDS SUMMARY | 2024-07-11 13:30 | XMS_ITS | Encounter Summary ---
Author Organization [place] Address [address] [place] [address] Care Team Providers Care Ingot Header Name Role Phone Maya Goyal MD Primary Care Provider Maya Goyal MD Unavailable Erlin Delcid MD Unavailable Mehdi Bass DPM Unavailable Kae Whipple [facility] Unavailable Maya Goyal MD Unavailable No Ref-Primary, Physician Primary Care Provider Mehdi Bass DPM Unavailable [phone] [facility] Unavailable Reason for Visit * Reason Onset Date Comments Patient Inquiry 09/02/2021 Encounter Details Date Type Department Care Team (Late st Contact Info) Description 09/02/2021 [facility] [address] [address] Mehdi Bass DPM [address] [facility] [address] [place], [place] [address] Patient Inquiry Social History Tobacco Use Types [...] Sex Assigned at Male 09/17/2018 5:00 PM ENVIRONMENTAL MANAGEMENT SPECIALIST Gender Identity Male 09/17/2018 5:00 PM ENVIRONMENTAL MANAGEMENT SPECIALIST Sexual Orientation Straight 09/17/2018 5: 00 PM ENVIRONMENTAL MANAGEMENT SPECIALIST COVID-19 Exposure Response Date Recorded In the last month, have you been in contact with someone who was confirmed or suspected to have Coronavirus / COVID-19? No / Unsure 08/17/2021 12:57 PM ENVIRONMENTAL MANAGEMENT SPECIALIST documented as of this encounter Plan of Treatment Not on file documented as of this encounter Visit Diagnoses Not on filedocumented in this encounter Additional Health Concerns Assessment Noted Time PHQ-9 Depression Total Score: 10 021 2:58 PM CDT documented as of this encounter Care Teams Ingot Header Relationship Specialty Start Date End Date Maya Goyal MD [address] [employer] [address] [place] [address] PCP - General 05/03/04 11/14/22 No Ref-Primary, Physician PCP - General 11/15/22 Maya Goyal MD [address] [facility] 200 [place] [address] Assigned PCP 06/27/12 10/17/23 Erlin Delcid MD [address] [place] [address] Assigned Surgical Provider 09/12/20 Mehdi Bass DPM [address] [facility] [address] [place] [address] Assigned Musculoskeletal Provider 08/14/21 10/27/22 Kae Whipple [facility] [address] [place] [address] Assigned MTM Pharmacist 03/18/22 Maya Goyal MD [address] [facility] 200 [place] [address] Assigned Pain Medication Provider 10/02/22 03/23/23 Mehdi Bass DPM [address] [facility] [address] [place], [place] [address] Assigned Surgical Provider 10/28/22 [facility] 303 [place], [place] [address] Assigned PCP 10/18/23 documented as of this encounter
--- OUTSIDE RECORDS SUMMARY | 2024-07-11 13:30 | XMS_ITS | Encounter Summary ---
Author Organization [place] Address [address] [place] [address]. [place] [address] Care Team Providers Care Stripping Shovel Oiler Name Role Phone Maya Goyal MD Primary Care Provider [phone] Maya Goyal MD Unavailable Mehdi Sen MD Unavailable [phone] Erlin Delcid MD Unavailable [phone] Elicia Bedoya [facility] Unavailable [phone] Kae Whipple [facility] Unavailable [phone] Mehdi Bass DPM Unavailable [phone] Kae Whipple [facility] Unavailable [phone] Maya Goayl MD Unavailable No Ref-Primary, Physician Primary Care Provider Mehdi Bass DPM Unavailable [phone] [facility] Unavailable Encounter Details Date Type Department Care Team (Late st Contact Info) Description 11/01/2020 [facility] [address] [place] [address] Erlin Delcid MD [address] [facility] [address] [place], [place] [address] Social History Tobacco Use Types Packs/Day Years [...] Sex Assigned at Male 09/17/2018 5:00 PM FOLDER SEAMER AUTOMATIC Gender Identity Male 09/17/2018 5:00 PM FOLDER SEAMER AUTOMATIC Sexual Orientation Straight 09/17/2018 5: 00 PM FOLDER SEAMER AUTOMATIC COVID-19 Exposure Response Date Recorded In the last month, have you been in contact with someone who was confirmed or suspected to have Coronavirus / COVID-19? No / Unsure 11/04/2020 1:14 PM FOLDER SEAMER AUTOMATIC documented as of this encounter Plan of Treatment Not on file documented as of this encounter Visit Diagnoses Not on filedocumented in this encounter Additional Health Concerns Assessment Noted Time PHQ-9 Depression Total Score: 10 020 8:55 AM CDT documented as of this encounter Care Teams Stripping Shovel Oiler Relationship Specialty Start Date End Date Maya Goyal MD [address] [place] [address] PCP - General 05/03/04 11/14/22 No Ref-Primary, Physician PCP - General 11/15/22 Maya Goyal MD [address] [place] [address] Assigned PCP 06/27/12 10/17/23 Mehdi Sen MD [address] [place] [address] Assigned Musculoskeletal Provider 07/16/20 12/18/20 Erlin Delcid MD [address] [place] [address] Assigned Surgical Provider 09/12/20 Elicia Bedoya [facility] 420 [facility] 812 [place] [address] Pharmacist Pharmacist 11/09/20 12/06/20 Kae Whipple [facility] 303 [place] [address] Pharmacist Pharmacist 11/30/20 12/06/20 Mehdi Bass DPM [address] [place] [address] [place] [address] Assigned Musculoskeletal Provider 08/14/21 10/27/22 Kae Whipple [facility] 303 [place] [address] Assigned MTM Pharmacist 03/18/22 Maya Goyal MD 303 [facility] 200 [place] [address] Assigned Pain Medication Provider 10/02/22 03/23/23 Mehdi Bass DPM [address] [place] [address] [address] [place] [address] Assigned Surgical Provider 10/28/22 [facility] 303 [place] [address] Assigned PCP 10/18/23 documented as of this encounter
--- OUTSIDE RECORDS SUMMARY | 2024-07-11 13:30 | XMS_ITS | Encounter Summary ---
Author Organization [place] Address [address] [place] [address]. [place] [address] Care Team Providers Care Dental Surgery Doctor Name Role Phone Maya Goyal MD Primary Care Provider [phone] Eva Mckenna RN Unavailable [phone] Maya Goyal MD Unavailable Maya Goyal MD Unavailable Mehdi Sen MD Unavailable [phone] Erlin Delcid MD Unavailable [phone] Elicia Bedoya [facility] Unavailable [phone] Kae Whipple [facility] Unavailable Mehdi Bass DPM Unavailable [phone] Kae Whipple [facility] Unavailable [phone] Maya Goyal MD Unavailable No Ref-Primary, Physician Primary Care Provider Mehdi Bass DPM Unavailable [phone] [facility] Unavailable Encounter Details Date Type Department [...] Sex Assigned at Male 09/17/2018 5:00 PM METAL TANK BUILDER Gender Identity Male 09/17/2018 5:00 PM METAL TANK BUILDER Sexual Orientation Straight 09/17/2018 5: 00 PM METAL TANK BUILDER documented as of this encounter Plan of Treatment Not on file documented as of this encounter Visit Diagnoses Not on filedocumented in this encounter Additional Health Concerns Infection Onset Date Last Indicated Resolved Time COVID-19 08/27/2020 08/27/2020 09/17/2020 11:4 0 PM METAL TANK BUILDER Assessment Noted Time PHQ-9 Depression Total Score: 14 017 11:50 AM METAL TANK BUILDER documented as of this encounter Care Teams Dental Surgery Doctor Relationship Specialty Start Date End Date Maya Goyal MD [address] [place] [address] PCP - General 05/03/04 11/14/22 Maya Goyal MD [address] [place] [address] PCP - Assigned PCP 10/22/09 11/26/18 No Ref-Primary, Physician PCP - General 11/15/22 Eva Mckenna RN Clinic Batch Freezer Operator Primary Care - CC 02/19/18 Maya Goyal MD [address] [place] [address] Assigned PCP 06/27/12 10/17/23 Mehdi Sen MD [address] [place] [address] Assigned Musculoskeletal Provider 07/16/20 12/18/20 Eriln Delcid MD [address] [place] [address] Assigned Surgical Provider 09/12/20 Elicia Bedoya, [facility] 420 [facility] 812 [place] [address] Pharmacist Pharmacist 11/09/20 12/06/20 Kae Whipple [facility] [address] [place] [address] Pharmacist Pharmacist 11/30/20 12/06/20 [place] [address] [employer] [address] [place] [address] Assigned Musculoskeletal Provider 08/14/21 10/27/22 Kae Whipple [facility] [address] [place] [address] Assigned MTM Pharmacist 03/18/22 Maya Goyal MD [address] [facility] 200 [place] [address] Assigned Pain Medication Provider 10/02/22 03/23/23 [place] [address] [employer] [address] [place] [address] Assigned Surgical Provider 10/28/22 [facility] 303 [place] [address] Assigned PCP 10/18/23 documented as of this encounter
--- OUTSIDE RECORDS SUMMARY | 2024-07-11 13:30 | XMS_ITS | Encounter Summary ---
Author Organization [place] Address [address] [place] [address]. [place] [address] Care Team Providers Care Insurance Collector Name Role Phone Maya Goyal MD Primary Care Provider Maya Goyal MD Unavailable Erlin Delcid MD Unavailable Mehdi Bass DPM Unavailable Kae Whipple [facility] Unavailable [phone] Maya Goyal MD Unavailable No Ref-Primary, Physician Primary Care Provider Mehdi Bass DPM Unavailable [phone] [facility] Unavailable Reason for Visit * Reason Comments Medication Refill Encounter Details Date Type Department Care Team (Late st Contact Info) Description 07/11/2021 [facility] [address] [place] [address] Maya Goyal MD [address] [place] [address] Medication Refill Social History Tobacco [...] Sex Assigned at Male 09/17/2018 5:00 PM ROUTEMAN Gender Identity Male 09/17/2018 5:00 PM ROUTEMAN Sexual Orientation Straight 09/17/2018 5: 00 PM ROUTEMAN documented as of this encounter Miscellaneous Notes * Telephone Encounter - Rukhsana Yo RN - 07/13/2021 12:52 PM CDT Prescription approved per [facility] Refill Protocol. documented in this encounter [...] documented as of this encounter Care Teams Insurance Collector Relationship Specialty Start Date End Date Maya Goyal MD [address] [place] [address] PCP - General 05/03/04 11/14/22 No Ref-Primary, Physician PCP - General 11/15/22 Maya Goyal MD [address] [place] [address] Assigned PCP 06/27/12 10/17/23 Erlin Delcid MD [address] [address] Assigned Surgical Provider 09/12/20 [place] [address] [facility] 300 [place] [address] Assigned Musculoskeletal Provider 08/14/21 10/27/22 Kae Whipple RP 303 [place] [address] Assigned MTM Pharmacist 03/18/22 Maya Goyal MD 303 [facility] 200 [place] [address] Assigned Pain Medication Provider 10/02/22 03/23/23 [place] [address] [facility] [address] [place] [address] Assigned Surgical Provider 10/28/22 [facility] 303 [place] [address] Assigned PCP 10/18/23 documented as of this encounter
--- OUTSIDE RECORDS SUMMARY | 2024-07-11 13:30 | XMS_ITS | Encounter Summary ---
Author Organization [place] Address [address] [place] [address]. [place] [address] Care Team Providers Care Rink Rat Name Role Phone Maya Goyal MD Primary Care Provider Maya Goyal MD Unavailable Erlin Delcid MD Unavailable Mehdi Bass DPM Unavailable [phone] Kae Whipple [facility] Unavailable Maya Goyal MD Unavailable No Ref-Primary, Physician Primary Care Provider Mehdi Bass DPM Unavailable [facility] Unavailable Encounter Details Date Type Department Care Team (Late st Contact Info) Description 09/06/2021 [facility] [place] Medical Advice [facility] [address] [place] [address] Eden Lei, TERADATA ARCHITECT Social History Tobacco Use Types Packs/Day Years [...] Sex Assigned at Male 09/17/2018 5:00 PM CASKET INSPECTOR Gender Identity Male 09/17/2018 5:00 PM CASKET INSPECTOR Sexual Orientation Straight 09/17/2018 5: 00 PM CASKET INSPECTOR COVID-19 Exposure Response Date Recorded In the last month, have you been in contact with someone who was confirmed or suspected to have Coronavirus / COVID-19? No / Unsure 08/17/2021 12:57 PM CASKET INSPECTOR documented as of this encounter Plan of Treatment Not on file documented as of this encounter Visit Diagnoses Not on filedocumented in this encounter Additional Health Concerns Assessment Noted Time PHQ-9 Depression Total Score: 10 021 2:58 PM CDT documented as of this encounter Care Teams Rink Rat Relationship Specialty Start Date End Date Maya Goyal MD [address] [place] [address] PCP - General 05/03/04 11/14/22 No Ref-Primary, Physician PCP - General 11/15/22 Maya Goyal MD [address] [place] [address] Assigned PCP 06/27/12 10/17/23 Erlin Delcid MD [address] [facility] 500 [place], [place] Assigned Surgical Provider 09/12/20 Mehdi Bass DPM [address] [facility] [address] [place], [place] [address] Assigned Musculoskeletal Provider 08/14/21 10/27/22 Kae Whipple [facility] [address] [place] [address] Assigned MTM Pharmacist 03/18/22 Maya Goyal MD 303 [address] [facility] 200 [place] [address] Assigned Pain Medication Provider 10/02/22 03/23/23 Mehdi Bass DPM [address] [facility] [address] [place] [address] Assigned Surgical Provider 10/28/22 [facility] 303 [place] [address] Assigned PCP 10/18/23 documented as of this encounter
--- OUTSIDE RECORDS SUMMARY | 2024-07-11 13:30 | XMS_ITS | Encounter Summary ---
Author Organization [place] Address [address] [place] [address]. [place] [address] Care Team Providers Care Access Representative Name Role Phone Maya Goyal MD Primary Care Provider [phone] Maya Goyal MD Unavailable Mehdi Sen MD Unavailable [phone] Erlin Delcid MD Unavailable [phone] Elicia Bedoya [facility] Unavailable Kae Whipple [facility] Unavailable Mehdi Bass DPM Unavailable [phone] Kae Whipple [facility] Unavailable [phone] Maya Goyal MD Unavailable No Ref-Primary, Physician Primary Care Provider Mehdi Bass DPM Unavailable [phone] [facility] Unavailable Encounter Details Date Type Department Care Team (Late st Contact Info) Description 11/01/2020 [facility] [place] [address] [place] [address] Erlin Delcid MD [address] [place], [place] [address] Social History Tobacco Use Types Packs/Day Years [...] Sex Assigned at Male 09/17/2018 5:00 PM CONTRACTING ENGINEER Gender Identity Male 09/17/2018 5:00 PM CONTRACTING ENGINEER Sexual Orientation Straight 09/17/2018 5: 00 PM CONTRACTING ENGINEER COVID-19 Exposure Response Date Recorded In the last month, have you been in contact with someone who was confirmed or suspected to have Coronavirus / COVID-19? No / Unsure 11/04/2020 1:14 PM CONTRACTING ENGINEER documented as of this encounter Plan of Treatment Not on file documented as of this encounter Visit Diagnoses Not on filedocumented in this encounter Additional Health Concerns Assessment Noted Time PHQ-9 Depression Total Score: 10 020 8:55 AM CDT documented as of this encounter Care Teams Access Representative Relationship Specialty Start Date End Date Maya Goyal MD [address] [place] [id number] PCP - General 05/03/04 11/14/22 No Ref-Primary, Physician PCP - General 11/15/22 Maya Goyal MD [address] [place] [address] Assigned PCP 06/27/12 10/17/23 Mehdi Sen MD 9 [place] [address] Assigned Musculoskeletal Provider 07/16/20 12/18/20 Erlin Delcid MD [address] [place] [address] Assigned Surgical Provider 09/12/20 Elicia Bedoya [facility] 420 [facility] 812 [place] [address] Pharmacist Pharmacist 11/09/20 12/06/20 Kae Whipple [facility] 303 [place] [address] Pharmacist Pharmacist 11/30/20 12/06/20 Mehdi Bass DPM [address] [place] [address] [place] [address] Assigned Musculoskeletal Provider 08/14/21 10/27/22 Kae Whipple [facility] 303 [place] [address] Assigned MTM Pharmacist 03/18/22 Maya Goyal MD 303 [facility] 200 [place] [address] Assigned Pain Medication Provider 10/02/22 03/23/23 Mehdi Bass DPM [address] [place] [address] [address] [place] [address] Assigned Surgical Provider 10/28/22 [facility] 303 [place] [address] Assigned PCP 10/18/23 documented as of this encounter
--- OUTSIDE RECORDS SUMMARY | 2024-07-11 13:30 | XMS_ITS | Encounter Summary ---
Author Organization [place] Address [address] [place] [address] Care Team Providers Care Computer Network Specialist Name Role Phone Maya Goyal MD Primary Care Provider [phone] Maya Goyal MD Unavailable Mehdi Sen MD Unavailable [phone] Erlin Delcid MD Unavailable Elicia Bedoya [facility] Unavailable Kae Whipple [facility] Unavailable [phone] Mehdi Bass DPM Unavailable [phone] Kae Whipple [facility] Unavailable Maya Goyal MD Unavailable No Ref-Primary, Physician Primary Care Provider Mehdi Bass DPM Unavailable [phone] [facility] Unavailable Reason for Visit * Reason Comments Medication Refill Encounter Details Date Type Department Care Team (Late st Contact Info) Description 09/30/2020 [facility] [address] [place] [address] Maya Goyal MD [address] [place] [address] Medication Refill Social History Tobacco [...] Sex Assigned at Male 09/17/2018 5:00 PM FOSTER CARE SOCIAL WORKER Gender Identity Male 09/17/2018 5:00 PM FOSTER CARE SOCIAL WORKER Sexual Orientation Straight 09/17/2018 5: 00 PM FOSTER CARE SOCIAL WORKER COVID-19 Exposure Response Date Recorded In the last month, have you been in contact with someone who was confirmed or suspected to have Coronavirus / COVID-19? Yes 09/07/2020 1:45 PM FOSTER CARE SOCIAL WORKER documented as of this encounter Miscellaneous Notes * Telephone Encounter - Eva Garcia LPN - 10/05/2020 11:58 AM FOSTER CARE SOCIAL WORKER Spoke with Patient he is aware and transferred to appiontment desk BMeron Garcia LPN ER CARE SOCIAL WORKER * Telephone Encounter - Basilia Felipe MD - 10/01/2020 4:04 PM FOSTER CARE SOCIAL WORKER Please have him schedule an apptsoon, as he is almost due for diabetic check and can recheck sodiumsame time ER CARE SOCIAL WORKER * Telephone Encounter - India Tapia RN - 10/01/2020 9:58 AM CST Routing refill request to provider for review/approval because: Labs out of range: Sodium Date Value Ref Range Status 05/24/2020 127 (L) 133 - 144 mmol/L Final India Tapia RN, BSN ER CARE SOCIAL WORKER documented in this encounter Plan of Treatment Not on file documented as of this encounter Visit Diagnoses Diagnosis Benign essential hypertension Essential hypertension, benign documented in this encounter Additional Health Concerns Assessment Noted Time PHQ-9 Depression Total Score: 10 020 8:55 AM CDT documented as of this encounter Care Teams Computer Network Specialist Relationship Specialty Start Date End Date Maya Goyal MD [address] [facility] [facility] 200 [place] [address] PCP - General 05/03/04 11/14/22 No Ref-Primary, Physician PCP - General 11/15/22 Maya Goyal MD [address] [facility] 200 [place] [address] Assigned PCP 06/27/12 10/17/23 Mehdi Sen MD 909 [place], [place] [address] Assigned Musculoskeletal Provider 07/16/20 12/18/20 Erlin Delcid MD 6363 [facility] [address] [address] Assigned Surgical Provider 09/12/20 Elicia Bedoya [facility] [address] [place] [address] 812 [place] [address] Pharmacist Pharmacist 11/09/20 12/06/20 Kae Whipple [facility] [address] [place], [place] [address] Pharmacist Pharmacist 11/30/20 12/06/20 Mehdi Bass DPM [address] [facility] [address] [place] [address] Assigned Musculoskeletal Provider 08/14/21 10/27/22 Kae Whipple [facility] 303 [place] [address] Assigned MTM Pharmacist 03/18/22 Maya Goyal MD 303 [address] [facility] 200 [place] [address] Assigned Pain Medication Provider 10/02/22 03/23/23 Mehdi Bass DPM [address] [facility] 300 [place], [place] [address] Assigned Surgical Provider 10/28/22 [facility] 303 [place] [address] Assigned PCP 10/18/23 documented as of this encounter
--- OUTSIDE RECORDS SUMMARY | 2024-07-11 13:30 | XMS_ITS | Encounter Summary ---
Author Organization [facility] Address [address] [place] [address] Care Team Providers Care Talent Development Specialist Name Role Phone Maya Goyal MD Primary Care Provider [phone] Maya Goyal MD Unavailable Mehdi Sen MD Unavailable [phone] Erlin Delcid MD Unavailable [phone] Elicia Bedoya [facility] Unavailable Kae Whipple [facility] Unavailable Mehdi Bass DPM Unavailable [phone] Kae Whipple [facility] Unavailable aMya Goyal MD Unavailable No Ref-Primary, Physician Primary Care Provider Mehdi Bass DPM Unavailable [phone] [facility] Unavailable Reason for Visit * Reason Comments Medication Refill Encounter Details Date Type Department Care Team (Late st Contact Info) Description 03/22/2020 [facility] [address] [place] [address] Maya Goyal MD [address] [place] [address] Medication Refill Social History Tobacco [...] Sex Assigned at Male 09/17/2018 5:00 PM DOCK CLERK Gender Identity Male 09/17/2018 5:00 PM DOCK CLERK Sexual Orientation Straight 09/17/2018 5: 00 PM DOCK CLERK COVID-19 Exposure Response Date Recorded In the last month, have you been in contact with someone who was confirmed or suspected to have Coronavirus / COVID-19? No / Unsure 03/12/2020 11:08 AM CDT documented as of this encounter Miscellaneous Notes * Telephone Encounter - Leah Narvaez RPH - 03/23/2020 4:44 PM CDT Prescription approved per [facility] Refill Protocol. documented in this encounter Plan of Treatment Not on file documented as of this encounter Visit Diagnoses Diagnosis CKD (chronic kidney disease) stage 1, GFR 90 ml/min or greater Chronic kidney disease, Stage I Benign essential hypertension Essential hypertension, benign documented in this encounter Additional Health Concerns Infection Onset Date Last Indicated Resolved Time COVID-19 08/27/2020 08/27/2020 09/17/2020 11:4 0 PM DOCK CLERK Assessment Noted Time PHQ-9 Depression Total Score: 9 11/19/19 20 7:03 AM DOCK CLERK documented as of this encounter Care Teams Talent Development Specialist Relationship Specialty Start Date End Date Maya Goyal MD [address] [address] PCP - General 05/03/04 11/14/22 No Ref-Primary, Physician PCP - General 11/15/22 Maya Goyal MD [address] [place] [address] Assigned PCP 06/27/12 10/17/23 Mehdi Sen MD [address] [place] [address] Assigned Musculoskeletal Provider 07/16/20 12/18/20 Erlin Delcid MD [address] [address] Assigned Surgical Provider 09/12/20 Elicia Bedoya [facility] [address] [facility] 8[address] [place] [address] Pharmacist Pharmacist 11/09/20 12/06/20 Kae Whipple [facility] [address] [place] [address] Pharmacist Pharmacist 11/30/20 12/06/20 Mehdi Bass DPM [address] [facility] [address] [place] [address] Assigned Musculoskeletal Provider 08/14/21 10/27/22 Kae Whipple [facility] [address] [place] [address] Assigned MTM Pharmacist 03/18/22 Maya Goyal MD [address] [place] [address] Assigned Pain Medication Provider 10/02/22 03/23/23 Mehdi Bass DPM [address] [facility] [address] [place], [place] [address] Assigned Surgical Provider 10/28/[address] [address] Assigned PCP 10/18/23 documented as of this encounter
--- OUTSIDE RECORDS SUMMARY | 2024-07-11 13:30 | XMS_ITS | Encounter Summary ---
Author Organization [facility] Address [address] [place] [address]. [place] [address] Care Team Providers Care Repairer Screen Crusher Name Role Phone Maya Goyal MD Primary Care Provider [phone] Maya Goyal MD Unavailable Mehdi Sen MD Unavailable [phone] Erlin Delcid MD Unavailable [phone] Elicia Bedoya [facility] Unavailable Kae Whipple [facility] Unavailable Mehdi Bass DPM Unavailable [phone] Kae Whipple [facility] Unavailable [phone] Maya Goyal MD Unavailable No Ref-Primary, Physician Primary Care Provider Mehdi Bass DPM Unavailable [phone] [facility] Unavailable Reason for Visit * Reason Onset Date Comments Procedure 03/18/2019 Lumbar Epidural injection Encounter Details Date Type Department Care Team (Late st Contact Info) Description 03/18/2019 [facility] [place] [address] [facility] [address] [place] [address] [facility] Procedure (Lumbar Epidural injection ) Social [...] Sex Assigned at Male 09/17/2018 5:00 PM COLD ROLLING SUPERVISOR Gender Identity Male 09/17/2018 5:00 PM COLD ROLLING SUPERVISOR Sexual Orientation Straight 09/17/2018 5: 00 PM COLD ROLLING SUPERVISOR documented as of this encounter Miscellaneous Notes * Telephone Encounter - Giovana Domínguez - 03/18/2019 3:41 PM CDT Pre-screening Questions for Radiology Injections: Injection to be done at which interventional clinic site? [facility] Instruct patient to arrive as directed prior to the scheduled appointment time: ?? [place]: 30 minutes before ?? [place]: 30 [...] Jordyn for review ?? IF SCHEDULING IN [place] AND NEEDS A PA, IT IS OKAY TO SCHEDULE. [place] HANDLES THEIR OWN PA'S AFTER THE PATIENT IS SCHEDULED. PLEASE SCHEDULE AT LEAST 1 WEEK OUT SO A PA CAN BE OBTAINED. Any chance of ? NO If YES, do NOT schedule and route to pool table mechanic Is an grocery carrier needed? No Patient has a drive home? (mandatory) YES: Informed Is patient taking any blood thinners (plavix, coumadin, jantoven, warfarin, heparin, pradaxa or dabigatran )? No If hold needed, do NOT schedule, route to pool table mechanic Is patient taking any aspirin products (includes Excedrin and Fiorinal)? No ?? If more than 325mg/day do NOT schedule; route to pool table mechanic ?? For CERVICAL procedures, hold all aspirin [...] do NOT schedule and route to pool table mechanic Are you able to get on and off an exam table with minimal or no assistance? Yes If NO, do NOT schedule and route to pool table mechanic Are you able to roll over and lay on your stomach with minimal or no assistance? Yes If NO, do NOT schedule and route to pool table mechanic Any allergies to contrast dye, iodine, shellfish, or numbing and steroid medications? No If YES, route to pool table mechanic AND add allergy information to appointment notes [...] years? Yes ?? Was MRI done at [facility]? Yes ?? If not, where was it done? N/A ?? If MRI was not done at [facility], [facility] or [facility] Imaging do NOT schedule and [...] the patient have any questions? TIM Domínguez [facility] documented in this encounter Plan of Treatment Not on file documented as of this encounter Visit Diagnoses Not on filedocumented in this encounter Additional Health Concerns Infection Onset Date Last Indicated Resolved Time COVID-19 08/27/2020 08/27/2020 09/17/2020 11:4 0 PM COLD ROLLING SUPERVISOR Assessment Noted Time PHQ-9 Depression Total Score: 4 09/23/20 18 2:33 PM COLD ROLLING SUPERVISOR documented as of this encounter Care Teams Repairer Screen Crusher Relationship Specialty Start Date End Date Maya Goyal MD [address] [place] [address] PCP - General 05/03/04 11/14/22 No Ref-Primary, Physician PCP - General 11/15/22 Maya Goyal MD [address] [place] [address] Assigned PCP 06/27/12 10/17/23 Mehdi Sen MD 909 [place] [address] Assigned Musculoskeletal Provider 07/16/20 12/18/20 Erlin Delcid MD [address] [address] Assigned Surgical Provider 09/12/20 Elicia Bedoya [facility] [address] [place] [address] 812 [place] [address] Pharmacist Pharmacist 11/09/20 12/06/20 Kae Whipple [facility] [address] [place] [address] Pharmacist Pharmacist 11/30/20 12/06/20 Mehdi Bass DPM [address] [facility] [address] [place], [place] [address] Assigned Musculoskeletal Provider 08/14/21 10/27/22 Kae Whipple [facility] [address] [place] [address] Assigned MTM Pharmacist 03/18/22 Maya Goyal MD [address] [facility] 200 [place] [address] Assigned Pain Medication Provider 10/02/22 03/23/23 Meh[place] DPM [address] [facility] [address] [place], [place] [address] Assigned Surgical Provider 10/28/[address] [facility] [address] [place], [place] 7[address]87 Assigned PCP 10/18/23 documented as of this encounter
--- OUTSIDE RECORDS SUMMARY | 2024-07-11 13:31 | XMS_ITS | Encounter Summary ---
Author Organization [facility] Address [address] [place] [address]. [place] [address] Care Team Providers Care Splunk Dashboard Developer Name Role Phone Maya Goyal MD Primary Care Provider [phone] Eva Mckenna RN Unavailable [phone] Maya Goyal MD Unavailable Maya Goyal MD Unavailable Mehdi Sen MD Unavailable [phone] Erlin Delcid MD Unavailable [phone] Elicia Bedoya [facility] Unavailable [phone] Kae Whipple [facility] Unavailable [phone] Mehdi Bass DPM Unavailable [phone] Kae Whipple [facility] Unavailable [phone] Maya Goyal MD Unavailable No Ref-Primary, Physician Primary Care Provider Mehdi Bass DPM Unavailable [phone] [facility] Unavailable Encounter Details Date Type Department Care Team (Late st Contact Info) Description 08/26/2006 [facility] [address] [place] [address] [place] [address] Maya Goyal MD [address] [place] [id number] Social History Tobacco Use Types Packs/Day Years Used Date Smoking Tobacco: Every Day Cigarettes 0.5 20 Alcohol Use Standard Drinks/Week Comments Yes 0 (1 standard drink = 0.6 oz pur e alcohol) Social once every 3 months Sex and Gender Information Value Date Recorded Sex Assigned at Male 09/17/2018 5:00 PM EATING DISORDER PSYCHOLOGIST Gender Identity Male 09/17/2018 5:00 PM EATING DISORDER PSYCHOLOGIST Sexual Orientation Straight 09/17/2018 5: 00 PM EATING DISORDER PSYCHOLOGIST documented as of this encounter Plan of Treatment Not on file documented as of this encounter Visit Diagnoses Not on filedocumented in this encounter Additional Health Concerns Infection Onset Date Last Indicated Resolved Time COVID-19 08/27/2020 08/27/2020 09/17/2020 11:4 0 PM EATING DISORDER PSYCHOLOGIST documented as of this encounter Care Teams Splunk Dashboard Developer Relationship Specialty Start Date End Date Maya Goyal MD [address] [place] [address] PCP - General 05/03/04 11/14/22 Maya Goyal MD [address] [place] [address]27 PCP - Assigned PCP 10/22/09 11/26/18 No Ref-Primary, Physician PCP - General 11/15/22 Eva Mckenna RN Clinic Audio Visual Manager Primary Care - CC 02/19/18 Maya Goyal MD [address] [place] [address] Assigned PCP 06/27/12 10/17/23 Mehdi Sen MD [address] [place] [address] Assigned Musculoskeletal Provider 07/16/20 12/18/20 Erlin Delcid MD [address] [address] Assigned Surgical Provider 09/12/20 Elicia Bedoya, [facility] [address] [place] [address] 812 [place] [address] Pharmacist Pharmacist 11/09/20 12/06/20 Kae Whipple [facility] 303 [place] [address] Pharmacist Pharmacist 11/30/20 12/06/20 Mehdi Bass DPM [id number] [place] [address] Assigned Musculoskeletal Provider 08/14/21 10/27/22 Kae Whipple [facility] [address] [place] [address] Assigned MTM Pharmacist 03/18/22 Maya Goyal MD [address] [address] Assigned Pain Medication Provider 10/02/22 03/23/23 Mehdi Bass DPM [id number] [place] [address] [place] [address] Assigned Surgical Provider 10/28/22 [facility] 303 [place] [address] Assigned PCP 10/18/23 documented as of this encounter
--- OUTSIDE RECORDS SUMMARY | 2024-07-11 13:31 | XMS_ITS | Encounter Summary ---
Author Organization [facility] Address [address] [place] [address]. [place] [address] Care Team Providers Care Outpatient Physical Therapist Name Role Phone Maya Goyal MD Primary Care Provider [phone] Primary Care Provider UnavailEva Brannon RN Unavailable [phone] Maya Goyal MD Unavailable Maya Goyal MD Unavailable Mehdi Sen MD Unavailable [phone] Erlin Delcid MD Unavailable [phone] Elicia Bedoya [facility] Unavailable [phone] Kae Whipple [facility] Unavailable [phone] Mehdi Bass DPM Unavailable [phone] Kae Whipple [facility] Unavailable [phone] Maya Goyal MD Unavailable No Ref-Primary, Physician Primary Care Provider Mehdi Bass DPM Unavailable [phone] [facility] Unavailable Encounter Details Date Type Department Care Team (Late st Contact Info) Description 02/16/2003 [place] [address] [place] [address] Maya Goyal MD [address] [facility] [address] [place] [address] ER ENC (Primary Dx) Social History Tobacco [...] Sex Assigned at Male 09/17/2018 5:00 PM BUSINESS ANALYST CONSULTANT Gender Identity Male 09/17/2018 5:00 PM BUSINESS ANALYST CONSULTANT Sexual Orientation Straight 09/17/2018 5: 00 PM BUSINESS ANALYST CONSULTANT documented as of this encounter Progress Notes * 02/16/2003 11:59 PM CASSIE SYKES 00:00 Emergency Department Encounter-[facility] NEISHA HAWK () [Ente red: 00:00 Textile Dyer ([facility])] CHIEF COMPLAINT: Ankle pain. 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 A rolling tool box rolled into his right medial ankle resulting in pain. He p resents now for evaluation. PAST MEDICAL HISTORY: Hypertension and hypercholesterolemia. CURRENT MED ICATIONS: Lotrel, Zocor and gemfibrozil. ALLERGIES: No known allergies. SOCIAL HISTORY: The patieverton zavala works for [employer] as above. He is a one pack [...] Skin: Warm and dry and as above. [facility] DEPARTMENT COURSE AND TREATMENT: The patient was [...] 1. Rest, ice and elevation. 2. Ibuprofen kcrh-nma-yjgyvci prn. 3. Work restricti ons as a [...] COVID-19 08/27/2020 08/27/2020 09/17/2020 11:4 0 PM BUSINESS ANALYST CONSULTANT documented as of this encounter Care Teams Outpatient Physical Therapist Relationship Specialty Start Date End Date Maya Goyal MD [address] [place] [address] PCP - General 05/03/04 11/14/22 None PCP - General 12/01/02 05/02/04 Maya Goyal MD [address] [place] [address] PCP - Assigned PCP 10/22/09 11/26/18 No Ref-Primary, Physician PCP - General 11/15/22 Eva Mckenna RN Clinic Clinical Training Coordinator Primary Care - CC 02/19/18 Maya Goyal MD [address] [place] [address] Assigned PCP 06/27/12 10/17/23 Mehdi Sen MD 909 [place] [address] Assigned Musculoskeletal Provider 07/16/20 12/18/20 Erlin Delcid MD [address] [address] Assigned Surgical Provider 09/12/20 Elicia Bedoya [facility] [address] [place] [address] 812 [place] [address] Pharmacist Pharmacist 11/09/20 12/06/20 Kae Whipple [facility] [address] [place] [address] Pharmacist Pharmacist 11/30/20 12/06/20 Mehdi Bass DPM [facility] [employer] [address] [address] Assigned Musculoskeletal Provider 08/14/21 10/27/22 aKe Whipple Con[facility] [address] [place] [address] Assigned MTM Pharmacist 03/18/22 Maya Goyal MD [address] [address] Assigned Pain Medication Provider 10/02/22 03/23/23 Mehdi Bass DPM [address] [facility] [address] [place] [address] Assigned Surgical Provider 10/28/[address] [address] Assigned PCP 10/18/23 documented as of this encounter
--- OUTSIDE RECORDS SUMMARY | 2024-07-11 13:31 | XMS_ITS | Encounter Summary ---
Author Organization [facility] Address [address] [place] [address]. [place] [address] Care Team Providers Care Shredding Machine Operator Name Role Phone Maya Goyal MD Primary Care Provider [phone] Primary Care Provider UnavailEva Brannon RN Unavailable [phone] Maya Goyal MD Unavailable Maya Goyal MD Unavailable Mehdi Sen MD Unavailable [phone] Erlin Delcid MD Unavailable [phone] Elicia Bedoya [facility] Unavailable [phone] Kae Whipple [facility] Unavailable [phone] Mehdi Bass DPM Unavailable [phone] Kae Whipple [facility] Unavailable [phone] Maya Goyal MD Unavailable No Ref-Primary, Physician Primary Care Provider Mehdi Bass DPM Unavailable [phone] [facility] Unavailable Encounter Details Date Type Department Care Team (Late st Contact Info) Description 12/15/2002 [place] [address] [place] [address] Maya Goyal MD [address] [facility] 200 [place] [address] ER ENC (Primary Dx) Social History Tobacco [...] Sex Assigned at Male 09/17/2018 5:00 PM OCCUPATIONAL HEALTH RN Gender Identity Male 09/17/2018 5:00 PM OCCUPATIONAL HEALTH RN Sexual Orientation Straight 09/17/2018 5: 00 PM OCCUPATIONAL HEALTH RN documented as of this encounter Progress Notes * 12/15/2002 11:59 PM [id number] 00:00 Emergency Department Encounter-[facility] TRACY BYRNE) [Entered: 00:00 Tuyere Fitter (HIM)] : 56 CHIEF COMPLAINT: I was at work and a tow bar dropped on my arm. HISTORY OF PRESENT ILLNESS: Rafa Hickey is a 42-year-old white male who comes to us from [employer] where he was working out on the [employer]. Apparently his friend pulled the tug away [...] right-handed. SOCIAL HISTORY: The patient has worked [employer] for the last eighteen years. REVIEW OF [...] related. _ TRACY BYRNE MD MT: Document: [id number] Electronically filed by Stella Paul 12/18 11:45 AM documented in this encounter Plan of Treatment Not on file documented as of this encounter Visit Diagnoses Diagnosis ER ENC- Primary documented in this encounter Additional Health Concerns Infection Onset Date Last Indicated Resolved Time COVID-19 08/27/2020 08/27/2020 09/17/2020 11:4 0 PM OCCUPATIONAL HEALTH RN documented as of this encounter Care Teams Shredding Machine Operator Relationship Specialty Start Date End Date Maya Goyal MD [address] [place] [address] PCP - General 05/03/04 11/14/22 None PCP - General 12/01/02 05/02/04 Maya Goyal MD [address] [place], [place] [address] PCP - Assigned PCP 10/22/09 11/26/18 No Ref-Primary, Physician PCP - General 11/15/22 Eva [facility]ck[facility], RN Clinic Fiberglass Boat Finisher Primary Care - CC 02/19/18 Maya Goyal MD [address] [facility] [address] [place], [place] [address] Assigned PCP 06/27/12 10/17/23 Mehdi Sen MD [address] [place], [place] [address] Assigned Musculoskeletal Provider 07/16/20 12/18/20 Erlin Delcid MD [address] [address] Assigned Surgical Provider 09/12/20 Elicia Bedoya, [facility] [address] [place] [address] 812 [place], [place] [address] Pharmacist Pharmacist 11/09/20 12/06/20 Kae Whipple [facility] [address] [place], [place] [address] Pharmacist Pharmacist 11/30/20 12/06/20 Mehdi [place] D[place] [address] [facility] [address] [place], [place] [address] Assigned Musculoskeletal Provider 08/14/21 10/27/22 Kae Whipple [facility] [address] [place], [place] [address] Assigned MTM Pharmacist 03/18/22 Maya Goyal MD [address] [facility] 200 [place] [address] Assigned Pain Medication Provider 10/02/22 03/23/23 Mehdi Bass DPM [address] [facility] [address] [place] [address] Assigned Surgical Provider 10/28/22 [facility] 303 [place] [address] Assigned PCP 10/18/23 documented as of this encounter
--- OUTSIDE RECORDS SUMMARY | 2024-07-11 13:31 | XMS_ITS ---
Author Organization [facility] Address [address] [place] [address] [address] [place] [address] Care Team Providers Care Slot Tag Inserter Name Role Phone Caryl Shi Primary Care Provider UnavailKarlo Wilkins Unavailable [phone] Catia Swift MD Unavailable Unavailable Michael Suárez Unavailable [phone] Allergies No Known Allergies REASON FOR VISIT Low back pain, Knee pain, Bilateral hip pain Medications Medication SIG (Take, Route, Frequency, Duration) Notes Start Date End Date Status Methocarbamol 750 MG 1 tablet Orally(muscle relaxant for daytime use, Do not take with Tizanidine- only take 1 tablet at a time) Twice a day for 30 days Active Spironolactone 50 MG Oral for 30 Days Active Furosemide 20 MG Oral for 90 Days Active oxyCODONE HCl 5 MG 1 tablet as needed Orally every 8-12 hours for 30 days ok to fill 07/07/2024 Low back pain, unspecified M54.50, G89.29 PRINTED Active DULoxetine HCl 60 MG Oral for 30 Days Active tiZANidine HCl 4 MG 1 tablet as needed Orally once a day at bedtime for 30 days Active Meloxicam 7.5 MG 1 tablet Orally Once a day for 30 days Active Tamsulosin HCl 0.4 MG Oral for 90 Days Active Finasteride 5 MG TAKE ONE TABLET BY MOUTH ONCE DAILY Oral for 30 Days Active traZODone HCl 100 MG Oral for 90 Days Active amLODIPine Besylate 5 MG Oral for 90 Days Active Lantus SoloStar 100 UNIT/ML Subcutaneous for 17 Days Active Carvedilol 25 MG Oral for 90 Days Active UltiCare Short Pen [place] 31G X 8 MM DIRECTED for 30 Days Active Social History Tobacco Use: Social History Observation Description Date Details (start date - stop date) Unknown Tobacco Use/Smoking: Question Answer Notes Are you a Uses tobacco in other forms Additional Findings: Tobacco User e-Cigarette Problems Problem Type SNOMED Code ICD Code Onset Dates Problem Status W/U Status Risk Notes Problem High risk drug monitoring status (354958323) 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) Active confirmed Vital Signs Height 74 in 07/07/2024 Weight 337 lbs 07/07/2024 BMI 43.26 kg/m2 07/07/2024 Blood pressure systolic 128 mm Hg 07/07/20 24 Blood pressure diastolic 88 mm Hg 024 Encounters Encounter Location Date Provider Diagnosis [facility] [address] [facility] [address] [place] [address] 07/07/2024 Michael [facility] (current) use of opiate analgesic Z79.891 ; Spondylolysis, lumbosacral region M43.07 ; Opioid dependence, uncomplicated F11.20 and Other chronic pain G89.29 Assessments Encounter Date Diagnosis (ICD Code) Assessment Notes Treatment Notes Treatment Clinical Notes 07/07/2024 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 We discussed his current symptoms and medications. Regarding medications, I have reviewed the [place] [employer]LL [employer] database and his most recent UDS, finding no inconsistencies. Therefore, I have refilled his oxycodone at the current dose of 5mg prn as he continues to note moderate relief without significant adverse side effects. He consented to a routine oral tox screen for compliance monitoring. This treatment plan was reviewed with Vinod, and he was agreeable. He will return in two months for further evaluation or sooner if needed. I will continue to monitor his progress, adjusting his treatment plan as necessary. Plan: 1. Refill Oxycodone 5mg prn 2. OTS 3. Follow-up in two months Discharge instructions reviewed verbally. Discussed the risks/benefits of prescribed medication. The patient is aware that medication may be discontinued at any time due to poor compliance with visits, and recommended treatment and/or if patient doesn't adhere to the signed pain contract. The patient was instructed to return to the office as scheduled and call with any questions, problems or concerns. 07/07/2024 Other I, Sebastian mabry, am serving as a scribe to document services personally performed by Michael Suárez NP, based upon my observations and the provider's statements to me. All documentation has been reviewed by the aforementioned ALIGNMENT MECHANIC. I, Michael Suárez NP, attest that the above named individual is acting in scribe capacity, has observed my performance of the services and has documented them in accordance with my direction. The documentation recorded by the scribe accurately reflects the service I personally performed and the decisions made during the clinic visit. Plan Of Treatment Medication Medication Name Sig Start Date Stop Date Notes Methocarbamol 750 MG 1 tablet Orally(muscle relaxant for daytime use, Do not take with Tizanidine- only take 1 tablet at a time) Twice a day for 30 days oxyCODONE HCl 5 MG 1 tablet as needed Orally every 8-12 hours for 30 days Low back pain, unspecified M54.50, G89.29 PRINTED tiZANidine HCl 4 MG 1 tablet as needed Orally once a day at bedtime for 30 days Meloxicam 7.5 MG 1 tablet Orally Once a day for 30 days Treatment Notes Assessment Notes Other chronic pain Vinod returns to clinic today for a follow-up evaluation regarding his chronic low back, neck, and bilateral knee pain. We discussed his current symptoms and medications. Regarding medications, I have reviewed the [place] [employer] database and his most recent UDS, finding no inconsistencies. Therefore, I have refilled his oxycodone at the current dose of 5mg prn as he continues to note moderate relief without significant adverse side effects. He consented to a routine oral tox screen for compliance monitoring. This treatment plan was reviewed with Vinod, and he was agreeable. He will return in two months for further evaluation or sooner if needed. I will continue to monitor his progress, adjusting his treatment plan as necessary. Plan: 1. Refill Oxycodone 5mg prn 2. OTS 3. Follow-up in two months Discharge instructions reviewed verbally. Discussed the risks/benefits of prescribed medication. The patient is aware that medication may be discontinued at any time due to poor compliance with visits, and recommended treatment and/or if patient doesn't adhere to the signed pain contract. The patient was instructed to return to the office as scheduled and call with any questions, problems or concerns. Other I, Sebastian Zacarias, am serving as a scribe to document services personally performed by Michael Suárez NP, based upon my observations and the provider's statements to me. All documentation has been reviewed by the aforementioned ALIGNMENT MECHANIC. I, Michael Suárez NP, attest that the above named individual is acting in scribe capacity, has observed my performance of the services and has documented them in accordance with my direction. The documentation recorded by the scribe accurately reflects the service I personally performed and the decisions made during the clinic visit. Pending Test Test Name Order Date Oral Toxicology Screen 07/07/2024 Next Appt Details Follow Up: 2 Months, Reason: Progress Notes * ROBTervonbalbir BethDOB: (64 yo M)Acc No.[id number]:07/07/2024 Progress Notes Patient:?Rafa RIVAS Provider:?Michael Suárez NP :1960???Age:64 Y???Sex:Male Adiel e:07/07/2024 Phone: Address:[facility] [place], [id number] Pcp:Caryl Shi Subjective: * Chief Complaints: * ???Low back painKnee painBil ateral hip pain * HPI: ???Clinic visit:? Rafa (Vinod) returns regarding his chronic low back, neck, and knee pain. Interval History: His pain remains persistent and bothersome but is largely unchanged in the interim. Vinod reports that he underwent an intraarticular hip injection through [facility] in the interim. He continues to follow-up with [facility] for treatment of knee pain as well. Procedure History : Several lumbar injections at [facility] have not been helpful. He also completed cervical injections at [facility]. Genicular RFAs have been completed in the past without relief - 01/01/2024 Lumbar injection ([facility]) : good relief - 11/21/2022 L5-S1 FANTASMA : 60-70% relief - 12/07/2022 bilateral knee injections (no relief) - 04/13/2023 Right knee injection : 60% relief, spiked blood pressure Previous Consults : Srinath Curiel MD of [facility] for knee treatment. Dr. Hoff (Surgeon) discussed SCS vs. L5-S1 RFA Previous Therapy : He completed knee therapy in 2019 without benefit. He has also completed therapy at [facility]. Current Pain Medications : Oxycodone 5mg BID PRN, Gabapentin, Methocarbamol 750mg BID, Meloxicam 7.5mg QD, Tizanidine 4mg QHS, Meloxicam BID PRN, NyQuil Previous Pain Medications : Amitriptyline. ???PQRS MEASURE:?154,155 Fall Risk?Have you had two or more falls in the past year??Yes,?Have you had any falls with injury in the past year??Yes,?Plan of Care:?Documented.?Depression Screening:?PHQ-9?Little interest or pleasure in doing things?Several days,?Feeling down, depressed, or hopeless?More than half the days,?Trouble falling or staying asleep, or sleeping too much?More than half the days,?Feeling tired or having little energy?More than half the days,?Poor appetite or overeating?Not at all,?Feeling bad about yourself or that you are a failure, or have let yourself or your family down Several days,?Trouble concentrating on things, such as reading [...] screening:?Patient Health Questionnaire (PHQ-9).? * ROS:?General/Constitutional:?Chills/Fevers?No.?Fatigue?No.?Weight gain?No.?Weight loss?No.?Endocrine:?Dizziness?No.?Excessive sweating?No.?Weakness?No.?Respiratory:?Chest pain?No.?Cough?No.?Shortness of breath at rest?No.?Gastrointestinal:?Abdominal pain?No.?Blood in stool?No.?Constipation?No.?Diarrhea?No.?Hematology:?Easy bruising?No.?Prolonged bleeding?No.?Swollen glands?No.?Musculoskeletal:?Painful joints?Yes.?Swollen joints?No.?Skin:?Skin lesion(s)?No.?Neurologic:?Balance difficulty?Yes.?Headache?No.?Tingling/Numbness?Yes.?Psychiatric:?Alcoholism?No.?Anxiety?Yes.?Substance abuse?No.? * Medical History:? * Surgical History:?Right knee meniscus cartilage x2 2015, 2018Left hamstring reattachment 11/07/2019 * Hospitalization/Major Diagno stic Procedure:?See surgical history * Family History:?Father: dece ased, Aortic surgery, diagnosed with Unspecified heart disease.?Mother: , Cancer.? * Social History:?Tobacco Use:?Tobacco Use/Smoking?Are you a?Uses tobacco in other forms,?Additional Findings: Tobacco User?e-Cigarette.?Work Status:?Place of Employment: [employer]. 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 Employment Status: not working. * Medications:?TakingUltiCare Short Pen [place] 31G X 8 MM Miscellaneous DIRECTED Lantus [...] Tablet Oral Furosemide 20 MG Tablet Oral tiZANidine HCl 4 MG Tablet 1 tablet as needed Orally once a day at bedtime Meloxicam 7.5 MG Tablet 1 tablet Orally Once a day Methocarbamol 750 MG Tablet 1 tablet Orally(muscle relaxant for daytime use, Do not take with Tizanidine- only take 1 tablet at a time) Twice a day oxyCODONE HCl 5 MG Tablet 1 tablet as needed Orally every 8-12 hours (max #3/day, ok to fill 04/10/2024) , Notes to Pharmacist: Low back pain, unspecified M54.50, G89.29 PRINTEDMedication List reviewed and reconciled with the patientTaking UltiCare Short Pen [place] 31G X 8 MM Miscellaneous DIRECTED Taking Lantus SoloStar 100 UNIT/ML Solution Pen-injector Subcutaneous Taking Carvedilol 25 MG Tablet Oral Taking amLODIPine Besylate 5 MG Tablet Oral Taking Tamsulosin HCl 0.4 MG Capsule Oral Taking traZODone HCl 100 MG Tablet Oral Taking Finasteride 5 MG Tablet TAKE ONE TABLET BY MOUTH ONCE DAILY Oral Taking DULoxetine HCl 60 MG Capsule Delayed Release Particles Oral Taking Spironolactone 50 MG Tablet Oral Taking Furosemide 20 MG Tablet Oral Taking tiZANidine HCl 4 MG Tablet 1 tablet as needed Orally once a day at bedtime Taking Meloxicam 7.5 MG Tablet 1 tablet Orally Once a day Taking Methocarbamol 750 MG Tablet 1 tablet Orally(muscle relaxant for daytime use, Do not take with Tizanidine- only take 1 tablet at a time) Twice a day Taking oxyCODONE HCl 5 MG Tablet 1 tablet as needed Orally every 8-12 hours (max #3/day, ok to fill 04/10/2024) , Notes to Pharmacist: Low back pain, unspecified M54.50, G89.29 PRINTEDMedication List reviewed and reconciled with the patient * Allergies:?N.K.D.A.no[Allerg ies Verified] Objective: * Vitals:?Ht: 74 in, Wt:337lbs , BMI:43.26, BP:128/88mm Hg, VAS-Today:81-10, VAS- Av 1-10, VAS-High: 10 1-10. * Examination: ???Musculoskeletal: ?Constitutional:?well groomed, in no acute distress.?Musculoskeletal:?normal gait and station, sits comfortably.?Skin:?No rashes, scars, or lesions on visible skin.?Neurological?normal coordination upper extremities, normal coordination lower extremities, alert and oriented x3, normal mood and affect.? 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 Plan: * Treatment: 2.?Opioid dependence, uncomplicated?LAB: Oral Toxicology Screen* Sebastian Zacarias 07/07/2024 12:14:19 PM CDT > He has consented to completing an Oral Drug Screen today for random low risk monitoring test for compliance. The oral swab collected at our office will be sent to an outside lab for testing. Expected positives include oxycodone. Last dose taken per patient: 07/07/2024. 3.?Other chronic pain? Continue tiZANidine HCl Tablet, 4 MG, 1 tablet as needed, Orally, once a day at bedtime, 30 days, 30, Refills 5;?Continue Meloxicam Tablet, 7.5 MG, 1 tablet, Orally, Once a day, 30 days, 30 Tablet, Refills 1;?Continue Methocarbamol Tablet, 750 MG, 1 tablet, Orally(muscle relaxant for daytime use, Do not take with Tizanidine- only take 1 tablet at a time), Twice a day, 30 days, 60 Tablet, Refills 5;?Refill oxyCODONE HCl Tablet, 5 MG, 1 tablet as needed, Orally, every 8-12 hours okto fill 07/07/2024, 30 days, 70, Refills 0, Notes to Pharmacist: Low back pain, unspecified M54.50,G89.29 PRINTED.?? Notes: Vinod returns to clinic today for a follow-up evaluation regarding his chronic low back, neck, and bilateral knee pain. We discussed his current symptoms and medications. Regarding medications, I have reviewed the [place] [employer]LL [employer] database and his most recent UDS, finding no inconsistencies. Therefore, I have refilled his oxycodone at the current dose of 5mg prn as he continues to note moderate relief without significant adverse side effects. He consented to a routine oral tox screen for compliance monitoring. This treatment plan was reviewed with Vinod, and he was agreeable. He will return in two months for further evaluation or sooner if needed. I will continue tomonitor his progress, adjusting his treatment plan as necessary. Plan: 1. Refill Oxycodone 5mg prn 2. OTS 3. Follow-up in two months Discharge instructions reviewed verbally. Discussed the risks/benefits of prescribed medication. The patient is aware that medication may be discontinued at any time due to poor compliance with visits, and recommended treatment and/or if patient doesn't adhere to the signed pain contract. The patient was instructed to return to the office as scheduled and call with any questions, problems or concerns.??4.?Others? Notes: I, Sebastian Zacarias, am serving as a scribe to document services personally performed by Michael Suárez NP, based upon my observations and the provider's statements to me. All documentation has been reviewed by the aforementioned ALIGNMENT MECHANIC. I, Michael Suárez NP, attest that the above named individual is acting in scribe capacity, has observed my performance of the services and has documented them in accordance with my direction. The documentation recorded by the scribe accurately reflects theservice I personally performed and the decisions made during the clinic visit.?? * Procedure Codes:? * Preventive Medicine:? ??iSpine Inventory Forms:?Low Back Oswestry?Oswestry Score (0-100)?60,?OSCAR Interpretation?60-79 (Crippled).? ??Counseling:?BMI Care goal follow-up plan:?Above Normal BMI Follow-up?Lifestyle education regarding diet Patient declined.? * Follow Up:?2 Months * Billing Information: * Visit Code:? 11998 Established Patient level 3. * Procedure Codes:? * Sign off status: Completed true * Provider:?Michael Suárez NP Date:?07/07 Generated for Andi fields/Mona/eTransmitting on:?07/11/2024 01:30 PM CDT History and Physical Notes * HPI (History of Present Illness) Category Sub-Category Detail Notes Depression Screening PHQ-9 Little inte rest or pleasure in doing things: Several days Feeling down, depressed, or hopeless: Mo re than half the days Trouble falling or staying a sleep, or sleeping too much: More than half the days Feeling tired or having little energy: M ore than half the days Poor appetite or overeating: Not at all Feeling bad about yourself o r that you are a failure, or have let yourself or your family down: Several days Trouble concentrating on thi ngs, such [...] Examination Category Sub-Category Detail Notes Musculoskeletal Constitutional: well groomed, in no acute distress Musculoskeletal: normal gait and stat ion, sits comfortably Skin: No rashes, scars, or lesions on visible skin Neurological normal coordination upper extremities, normal coordination lower extremities, alert and oriented x3, normal mood and affect
--- OUTSIDE RECORDS SUMMARY | 2024-07-11 13:31 | XMS_ITS | Encounter Summary ---
Author Organization [facility] Address [address] [place] [address]. [place] [address] Care Team Providers Care Oil Pipe Inspector Name Role Phone Maya Goyal MD Primary Care Provider [phone] None Primary Care Provider UnavailEva Brannon RN Unavailable [phone] Maya Goyal MD Unavailable Maya Goyal MD Unavailable Mehdi Sen MD Unavailable [phone] Erlin Delcid MD Unavailable [phone] Elicia Bedoya [facility] Unavailable [phone] Kae Whipple [facility] Unavailable [phone] Mehdi Bass DPM Unavailable [phone] Kae Whipple [facility] Unavailable [phone] Maya Goyal MD Unavailable No Ref-Primary, Physician Primary Care Provider Mehdi Bass DPM Unavailable [phone] [facility] Unavailable Encounter Details Date Type Department Care Team (Late st Contact Info) Description 03/10/[address] [address] Jonathan Casillas MD XXX RETIRED XXX [address] [place] [id number] Social History Tobacco Use Types Packs/Day Years Used Date Smoking Tobacco: Never Assessed Sex and Gender Information Value Date Recorded Sex Assigned at Male 09/17/2018 5:00 PM ASSOCIATE PROFESSOR COMPUTER SCIENCE Gender Identity Male 09/17/2018 5:00 PM ASSOCIATE PROFESS[employer] Sexual Orientation Straight 09/17/2018 5: 00 PM ASSOCIATE PROFESSOR COMPUTER SCIENCE documented as of this encounter Plan of Treatment Not on file documented as of this encounter Visit Diagnoses Not on filedocumented in this encounter Additional Health Concerns Infection Onset Date Last Indicated Resolved Time COVID-19 08/27/2020 08/27/2020 09/17/2020 11:4 0 PM ASSOCIATE PROFESSOR COMPUTER SCIENCE documented as of this encounter Care Teams Oil Pipe Inspector Relationship Specialty Start Date End Date Maya Goyal MD [address] [place] [id number] PCP - General 05/03/04 11/14/22 None PCP - General 12/01/02 05/02/04 Maya Goyal MD [address] [place] [address] [id number] PCP - Assigned PCP 10/22/09 11/26/18 No Ref-Primary, Physician PCP - General 11/15/22 Eva Mckenna RN [facility] [employer] [facility] Primary Care - CC 02/19/18 Maya Goyal MD [address] [place] [id number] Assigned PCP 06/27/12 10/17/23 Mehdi Sen MD [address] [place] [id number] Assigned Musculoskeletal Provider 07/16/20 12/18/20 Erlin Delcid MD [address] [address] Assigned Surgical Provider 09/12/20 Elicia Bedoya, [facility] [address] [place] [address] [place] [id number] Pharmacist Pharmacist 11/09/20 12/06/20 Kae Whipple [facility] [address] [place], [place] [address] Pharmacist Pharmacist 11/30/20 12/06/20 Mehdi Bass DPM [id number] [address] [id number] Assigned Musculoskeletal Provider 08/14/21 10/27/22 Kae Whipple [facility] [address] [place], [place] [address] Assigned MTM Pharmacist 03/18/22 Maya Goyal MD [address] [id number] Assigned Pain Medication Provider 10/02/22 03/23/23 Mehdi Bass DPM [id number] [place], [place] [address] Assigned Surgical Provider 10/28/22 [facility] [address] [place] [address] Assigned PCP 10/18/23 documented as of this encounter
--- OUTSIDE RECORDS SUMMARY | 2024-07-11 13:31 | XMS_ITS | Encounter Summary ---
Author Organization [facility] Address [address] [place] [address]. [place] [address] Care Team Providers Care Sales Operations Name Role Phone Maya Goyal MD Primary Care Provider [phone] Eva Mckenna RN Unavailable [phone] Maya Goyal MD Unavailable Maya Goyal MD Unavailable Mehdi Sen MD Unavailable [phone] Erlin Delcid MD Unavailable Elicia Bedoya [facility] Unavailable [phone] [facility] Unavailable [phone] Mehdi Bass DPM Unavailable [phone] [facility] Unavailable [phone] Maya Goyal MD Unavailable No Ref-Primary, Physician Primary Care Provider Mehdi Bass DPM Unavailable [phone] [facility] Unavailable Encounter Details Date Type Department Care Team (Late st Contact Info) Description 08/29/2010 [facility] [place] [facility] [address] [place] [address] Maya Goyal MD [address] [place] [address] BENIGN HYPERTENSION (Primary Dx) Social History Tobacco Use Types Packs/Day Years Used Date Smoking Tobacco: Every Day Cigarettes 0.5 20 Alcohol Use Standard Drinks/Week Comments Yes 0 (1 standard drink = 0.6 oz pur e alcohol) Social once every 3 months Sex and Gender Information Value Date Recorded Sex Assigned at Male 09/17/2018 5:00 PM ENGINEERING INSPECTION ASSISTANT Gender Identity Male 09/17/2018 5:00 PM ENGINEERING INSPECTION ASSISTANT Sexual Orientation Straight 09/17/2018 5: 00 PM ENGINEERING INSPECTION ASSISTANT documented as of this encounter Plan of Treatment Not on file documented as of this encounter Visit Diagnoses Diagnosis BENIGN HYPERTENSION- Primary Essential hypertension, benign documented in this encounter Additional Health Concerns Infection Onset Date Last Indicated Resolved Time COVID-19 08/27/2020 08/27/2020 09/17/2020 11:4 0 PM ENGINEERING INSPECTION ASSISTANT documented as of this encounter Care Teams Sales Operations Relationship Specialty Start Date End Date Maya Goyal MD [address] [place] [address] PCP - General 05/03/04 11/14/22 Maya Goyal MD [address] [place] [address] PCP - Assigned PCP 10/22/09 11/26/18 No Ref-Primary, Physician PCP - General 11/15/22 Eva Mckenna RN Clinic Solar Project Engineer Primary Care - CC 02/19/18 Maya Goyal MD [address] [place] [address] Assigned PCP 06/27/12 10/17/23 Mehdi Sen MD [address] [place] [address] Assigned Musculoskeletal Provider 07/16/20 12/18/20 Erlin Delcid MD [address] [address] Assigned Surgical Provider 09/12/20 Elicia Bedoya, [facility] [address] [place] [address] 812 [place] [address] Pharmacist Pharmacist 11/09/20 12/06/[address] [facility] [address] [place] [address] Pharmacist Pharmacist 11/30/20 12/06/20 Mehdi Bass DPM [facility] [place] [employer] [address] [address] Assigned Musculoskeletal Provider 08/14/21 10/27/[address] [facility] [address] [place] [address] Assigned MTM Pharmacist 03/18/22 Maya Goyal MD [address] [place] [address] Assigned Pain Medication Provider 10/02/22 03/23/23 Mehdi Bass DPM [facility] [place] [employer] [address] [place] [address] Assigned Surgical Provider 10/28/22 [facility] [address] [place] [address] Assigned PCP 10/18/23 documented as of this encounter
--- OUTSIDE RECORDS SUMMARY | 2024-07-11 13:31 | XMS_ITS | Encounter Summary ---
Author Organization [facility] Address [address] [place] [address]. [place] [address] Care Team Providers Care Lumber Yard Worker Name Role Phone Maya Goyal MD Primary Care Provider [phone] Eva Mckenna RN Unavailable [phone] Maya Goyal MD Unavailable Maya Goyal MD Unavailable Mehdi Sen MD Unavailable [phone] Erlin Delcid MD Unavailable [phone] Elicia Bedoya [facility] Unavailable [phone] Kae Whipple [facility] Unavailable Mehdi Bass DPM Unavailable [phone] Kae Whipple [facility] Unavailable [phone] Maya Goyal MD Unavailable No Ref-Primary, Physician Primary Care Provider Mehdi Bass DPM Unavailable [phone] [facility] Unavailable Encounter Details Date Type Department Care Team (Late st Contact Info) Description 10/17/2010 [facility] [place] [facility] Adv[facility] [address] [place] [address] Maya Goyal MD [address] [place] [address] 986177 Social History Tobacco Use Types Packs/Day Years Used Date Smoking Tobacco: Every Day Cigarettes 0.5 20 Alcohol Use Standard Drinks/Week Comments Yes 0 (1 standard drink = 0.6 oz pur e alcohol) Social once every 3 months Sex and Gender Information Value Date Recorded Sex Assigned at Male 09/17/2018 5:00 PM CASH REGISTER REPAIRER Gender Identity Male 09/17/2018 5:00 PM CASH REGISTER REPAIRER Sexual Orientation Straight 09/17/2018 5: 00 PM CASH REGISTER REPAIRER documented as of this encounter Plan of Treatment Not on file documented as of this encounter Visit Diagnoses Not on filedocumented in this encounter Additional Health Concerns Infection Onset Date Last Indicated Resolved Time COVID-19 08/27/2020 08/27/2020 09/17/2020 11:4 0 PM CASH REGISTER REPAIRER documented as of this encounter Care Teams Lumber Yard Worker Relationship Specialty Start Date End Date Maya Goyal MD [address] [place] [address] PCP - General 05/03/04 11/14/22 Maya Goyal MD [address] [place] [address] 046387 PCP - Assigned PCP 10/22/09 11/26/18 No Ref-Primary, Physician PCP - General 11/15/22 Eva Mckenna RN Clinic Checkroom Chief Primary Care - CC 02/19/18 Maya Goyal MD [address] [place] [address] 750627 Assigned PCP 06/27/12 10/17/23 Mehdi Sen MD [address] [place] [address] Assigned Musculoskeletal Provider 07/16/20 12/18/20 Erlin Delcid MD [address] [address] Assigned Surgical Provider 09/12/20 Elicia Bedoya, [facility] [address] [place] [address] 812 [place] [address] Pharmacist Pharmacist 11/09/20 12/06/20 Kae Whipple [facility] [address] [place] [address] Pharmacist Pharmacist 11/30/20 12/06/20 Mehdi Bass DPM [id number] [place] [address] Assigned Musculoskeletal Provider 08/14/21 10/27/22 Kae Whipple [facility] [address] [place] [address] Assigned MTM Pharmacist 03/18/22 Maya Goyal MD [address] [address] Assigned Pain Medication Provider 10/02/22 03/23/23 Mehdi Bass DPM [id number] [place] [address] [place] [address] Assigned Surgical Provider 10/28/22 [facility] [address] [place] [address] Assigned PCP 10/18/23 documented as of this encounter
--- OUTSIDE RECORDS SUMMARY | 2024-07-11 13:31 | XMS_ITS | Clinical Summary ---
Author Organization [facility] [place] [address] Care Team Providers Care Real Estate Teacher Name Role Phone Sarahi Roche RN Unavailable [phone] Caryl Shi DO Primary Care Provider [phone] Allergies No known active allergies Medications Medication [...] be used to read blood sugars per furniture reproducer's directions. Change each sensor every 14 days 6 Each 12 2023 Active FreeStyle Susanna 2 ReaderIndications :Type 2 diabetes mellitus with stage 1 chronic kidney disease, with long-term current use of insulin (HC) To be used to read blood sugars per furniture reproducer's directions. 1 Each 2023 Active rosuvastatin (CRESTOR) 10 mg tabletIndications :Hyperlipidemia LDL goal <100 Take 1 Tablet (10 mg) by mouth at bedtime. 90 Tablet 3 08/15/2023 Active UltiCare Pen Needle 31 gauge x /16Indications: Type 2 diabetes mellitus with stage 1 [...] be used to read blood sugars per furniture reproducer's directions. 6 Each 3 04/02/2024 Active carvediloL (COREG) 25 mg tabletIndications [...] per day. 90 Capsule 1 07/01/2024 Active DULoxetine (CYMBALTA) 60 mg Delayed-release capsuleIndication s:Mild episode of recurrent major depressive disorder (HC) Take 1 Capsule (60 mg) by mouth once daily. 90 Capsule 1 07/09/2024 Active gabapentin (NEURONTIN) 300 mg capsuleIndication s:Diabetic peripheral neuropathy associated with type 2 diabetes mellitus (HC) Take 1 Capsule (300 mg) by mouth three times daily. 270 Capsule 2 08/28/2023 06/12/20 24 Discontinu ed(Reorder (E-cancel not sent)) DULoxetine (CYMBALTA) 60 mg Delayed-release capsuleIndication s:Mild episode of recurrent major depressive disorder (HC) Take 1 Capsule (60 mg) by mouth once daily. 90 Capsule 04/02/2024 07/07/20 24 Discontinu ed(Reorder (E-cancel not sent)) DULoxetine (CYMBALTA) 30 mg Delayed-release capsuleIndication s:Mild episode of recurrent major depressive disorder (HC) Take 1 Capsule (30 mg) by mouth once daily. Take with 60 mg capsule for 90 mg total per day. 90 Capsule 05/05/2024 07/01/20 24 Discontinu ed(*Availa bility/For mulary change/Cos t of medication ) Hospital, Clinic, or Other Facility Administered Medication Ordered Dose Route Frequency Start Date End Date Status betamethasone acet,sod phos 12 mg injection (CELESTONE SOLUSPAN)Indications:Glute al tendonitis of right buttock,Chronic right hip pain,Trochanteric bursitis of right hip 12 mg IArtic ONE TIME 07/04/2024 07/04/2024 Ended Active Problems Problem Noted Date Diagnosed Date [...] Controlled substance agreement signed 05/02/2022 Overview (05/02/2022): [facility]. Symone Flores, UTILIZATION REVIEW NURSE 10:37 AM 05/02/22 BPH with urinary obstruction [...] Encounters Date Type Department Care Team Description 07/07/2024 Refill [facility] [address] [place] [address] Caryl Shi, DO Refill Request (Cymbalta) 07/05/2024 Travel 07/04/2024 9:00 AM CDT Procedure Only [facility] [address] [facility] [address] Luis Eduardo Watts MD Procedure (Ultrasound guided injection rig... 07/04/2024 Travel 06/29/2024 Travel 06/27/2024 9:10 AM CDT Office Visit [facility] [place] [address] Caryl Shi, Foot Problem (Sores on 7/10 toes, for 1 week. ) 06/27/2024 Orders Only [facility] [address] [place] [address] Tana Ambrosio NP <No scans attached> 06/27/2024 Refill [facility] [address] [address] Caryl Shi, Refill Request (Cymbalta) 06/27/2024 Travel 06/10/2024 Refill [facility] [facility] [address] Caryl Shi, Refill Request (Tresiba Flextouch 200 units/ml sopn ) 06/09/2024 11:45 AM CDT Ancillary Procedure [facility] [place] [address] 06/09/2024 Travel 05/29/2024 2:00 PM CDT Office Visit [address] [address] [address] Gray, [facility] Visit 05/29/2024 Travel 05/21/2024 11:15 AM CDT Office Visit [address] [place] [address] Caryl Shi DO ER Follow up (Fecal compaction, nfld er. /Struggling with sleep ) 05/21/2024 Travel 05/14/2024 Refill [facility] [address] [place] [address] Caryl Shi DO Refill Request (METFORMIN) 05/08/2024 Telephone [facility] [address] [place] [address] Caryl Shi, Prior Authorization (insulin degludec, U-200, (Tresiba FlexTouch U-200) 200 unit/mL (3 mL) pen - PA NOT NEEDED) 05/06/2024 Refill [facility] [address] [place] [address] Caryl Shi DO Refill Request (MAGNESIUM OXIDE 400MG TABS) 05/06/2024 Telephone [facility] [address] [place] [address] Caryl Shi DO Health Maintenance Update (HEALTH UPDATE) 05/05/2024 12:45 PM CDT Office Visit [facility] [address] [place] [address] Caryl Shi, Diabetes; Wound Check (Wound on back of right leg above ankle, present for 2-3 weeks. ) 05/05/2024 11:00 AM CDT Office Visit [facility] [address] [place] [address] Luis Eduardo Watts MD Musculoskeletal Problem (Follow up, back pain) 05/05/2024 Travel 05/03/2024 Orders Only [facility] Scanner 1 scan: (1-Ord) [facility], 05/03/2024 05/03/2024 Orders Only [facility] Scanner 1 scan: (1-Ord) [facility], 05/03/2024 04/30/2024 11:40 AM CDT Office Visit [facility] [address] [place] [address] Girma Palacio MD Follow Up (Follow up after MRI 03/31/24 and EMG 04/03/24 ) 04/30/2024 Refill [facility] [address] [place] [address] Caryl Shi, DO Refill Request (JARDIANCE 25MG TABS) 04/30/2024 Travel 04/30/2024 Refill [facility] [address] [place] [address] Caryl Shi, Refill Request (Tresiba Flextouch 200unit/ml) 04/22/2024 Telephone [facility] [address] [place] [address] Caryl Shi, DO Medication Management (carvediloL (COREG) 25 mg tablet) 04/14/2024 Refill [facility] [address] [place] [address] Catia Swift MD Refill Request (Carvedilol) from Last 3 Months Immunizations Name Administration [...] Sign Reading Time Taken Comments Blood Pressure 165/97 07/04/2024 9:01 AM CDT Pulse 73 07/04/2024 9:01 AM CDT Temperature 36.8 ??C (98.3 ??F) 07/04/2024 9:01 AM CD T Respiratory Rate 14 06/19/2022 11:22 AM CDT Oxygen Saturation 97% 07/04/2024 9:01 AM CDT Inhaled Oxygen Concentration - - Weight 155.6 kg (343 lb) 05/05/2024 12:40 PM CDT Height 188 cm (6' 2) 05/05/2024 11:07 AM CDT Body Mass Index 44.04 05/05/2024 11:07 AM CDT Plan of Treatment Upcoming Encounters Date Type Department Care Team (Late st Contact Info) Description 07/14/2024 9:00 AM CDT Appointment [facility] [address] [place] [address] 07/14/2024 11:00 AM CDT Office Visit [facility] [address] [place] [address] Romie Caro MD [address] [facility] [address] [place] [address] 08/05/2024 11:20 AM METER/RELAY TECHNICIAN Office Visit [facility] [address] [facility] [address] [place], [place] [address] Keri Reid DPM [address] [facility] [address] [place], [place] [address] 08/07/2024 12:45 PM METER/RELAY TECHNICIAN Office Visit [facility] [address] [place] [address] Caryl Shi, [address] [place] [address] 09/04/2024 1:20 PM METER/RELAY TECHNICIAN Office Visit [facility] [address] [place] [address] Luis Eduardo Watts MD [address] [place] [address] Health Maintenance Due Date Last Done Comments [...] Procedure Name Priority Date/Time Associated Diagnosis Comments BEDSIDE US STUDY ARCHIVE Routine 07/04/2024 10:57 AM CDT Gluteal tendonitis of right buttock Chronic right hip pain MR HIP RIGHT WO Routine 06/09/2024 11:27 [...] CDT SCAN-LABORATORY REPORT 05/03/2024 12:00 AM CDT US ABD AORTA SCREENING Routine 08/27/2023 2:10 PM METER/RELAY TECHNICIAN Screening for AAA (aortic abdominal aneurysm) LIPID PANEL W REFLEX MEASURED LDL Routine 07/26/2023 2:25 PM CDT Hyperlipidemia LDL goal <100 from Last 3 Months or Most Recently Relevant to Health Maintenance Results * BEDSIDE US STUDY ARCHIVE (07/04/2024 10:57 AM CDT) Malika Nowak - 07/04/2024 10:57 AM CDT The patient was seen for ultrasound guided injection by Dr. Luis Eduardo Watts. Ultrasound was not used for diagnostic purposes, but to guide the needle placement and document the position of the injection. ?? See patient's EPIC encounter for the detail of the procedure; see LOR[facility] for saved images of the injection. Luis Eduardo Watts MD PROCEDURE ORD * MR HIP RIGHT WO (06/09/2024 11:27 [...] right hip. Inadvertently, sagittal PD fat-sat small [id number] images were not acquired. Coronal and axial [...] the right hip.Inadvertently, sagittal PD fat-sat small [id number] images were notacquired. Coronal and axial T1 [...] Watts MD MR * ANTI HIV 1/2 [24715.0] (05/05/2024 12:10 PM CDT) HIV-1/HIV-2 SCREEN Non-Reacti ve Non-Reacti ve 05/06/2024 1:45 AM CDT [facility] TRAL LABORATORY Comment:HIV-1 p24 and HIV-1/ HIV-2 Ab Not Detected. Blood BLOOD SPECIMEN / Unknown Venipuncture / Unknown 05/05/2024 12:10 PM CDT 05/05/2024 12:11 PM CDT Caryl Shi DO [facility] [address] [place] [address], * (ABNORMAL) HEMOGLOBIN A1C MONITORING (POCT) (05/05/2024 12:10 PM CDT) HEMOGLOBIN A1C MONITORING (POCT) 7.0(H) <=6.4 % 05/05/2024 12:[address] [facility] Blood BLOOD SPECIMEN / Unknown Venipuncture / Unknown 05/05/2024 12:10 PM CDT 05/05/2024 12:[address] [facility] - 05/05/2024 12:26 PM CDT [...] Caryl Shi DO CHEMISTRY Performing Organization Address City/[facility]/ZIP Co de Phone Number [facility] [address] [place] [address], [place] [phone] * PSA TOTAL SCREEN [[id number]] (05/05/2024 12:10 PM CDT) PSA TOTAL (SCREEN) 0.06 <4.00 ng/mL 05/06/2024 1:09 AM CDT [facility] Blood BLOOD SPECIMEN / Unknown Venipuncture / Unknown 05/05/2024 12:10 PM CDT 05/05/2024 12:11 PM CDT Narrative [facility] LABORATORY-CENTRAL LABORATORY - 05/06/2024 1:09 AM CDT The [...] be used interchangeably. Caryl Shi DO LABORATORY Performing Organization Address City/[facility]/ZIP Co de Phone Number [facility] LABORATORY-CENTRAL LABORATORY [address] [place] [address], * SCAN-LABORATORY REPORT (05/03/2024 12:00 AM CDT) Only the most recent of2 resultswithin the time period is included. Scanner OTHER * US ABD AORTA SCREENING [[id number]] (08/27/2023 2:10 PM METER/RELAY TECHNICIAN) Anatomical Region Laterality Modality Abdomen, AORTA Ultrasound 08/27/2023 2:16 PM METER/RELAY TECHNICIAN Narrative 08/27/2023 2:16 PM METER/RELAY TECHNICIAN For Patients: ??As a result of the [...] For Patients: As a result of the s Act, medical imagingexams and procedure reports are [...] 199 mg/dL 07/26/2023 10:45 PM CDT [facility] TRAL LABORATORY Comment: Cholesterol, Total Reference Ranges Desirable <200 mg/dL Borderline 200-239 mg/dL High >=240 mg/dL TRIGLYCERIDES 436(H) <150 mg/dL 07/26/2023 10:45 PM CDT [facility] TRAL LAB[facility] HDL CHOLESTEROL 32(L) >40 mg/dL 3 10:45 PM CDT [facility] TRAL LAB[facility] NON-HDL CHOLESTEROL 114 <145 mg/dl 07/26/2023 10:45 PM CDT [facility] TRAL LAB[facility] CHOL/HDL RATIO 4.56(H) <4.50 07/26/2023 10:45 PM CDT [facility] TRAL LAB[facility] LDL CHOLESTEROL 3 10:45 PM CDT [facility] TRAL LABORATORY Comment:Invalid LDL when Tri g >400. VLDL CHOLESTEROL COMMENT 07/26/2023 10:45 PM CDT [facility] TRAL LABORATORY Comment:Unable to calculate VLDL. PROVIDER ORDERED STATUS FASTING 07/26/2023 10:45 PM CDT [facility] TRAL LABORAT[facility] Blood BLOOD SPECIMEN / Unknown Venipuncture / Unknown 07/26/2023 2:25 PM CDT 07/26/2023 2:25 PM CDT Catia Swift MD CHEMISTRY [facility] [address] [address], from Last 3 Months or Most Recently Relevant to Health Maintenance Care Teams Real Estate Teacher Relationship Specialty Start Date End Date Caryl Shi DO [address] [place] [address] PCP - General Family Practice 07/23/23 Sarahi Roche RN [address] [place] [address] Rotary Dump Operator 06/01/23
--- OUTSIDE RECORDS SUMMARY | 2024-07-11 13:31 | XMS_ITS | Encounter Summary ---
Author Organization [facility] Address [address] [place] [address]. [place] [address] Care Team Providers Care Senior Mortgage Underwriter Name Role Phone Maya Goyal MD Primary Care Provider [phone] Eva Mckenna RN Unavailable [phone] Maya Goyal MD Unavailable Maya Goyal MD Unavailable Mehdi Sen MD Unavailable [phone] Erlin Delcid MD Unavailable Elicia Bedoya [facility] Unavailable [phone] Kae Whipple [facility] Unavailable [phone] Mehdi Bass DPM Unavailable [phone] Kae Whipple [facility] Unavailable [phone] Maya Goyal MD Unavailable No Ref-Primary, Physician Primary Care Provider Mehdi Bass DPM Unavailable [phone] [facility] Unavailable Encounter Details Date Type Department Care Team (Late st Contact Info) Description 12/13/2010 [facility] Medical Advice [facility] [address] [place] [address] Maya Goyal MD [address] [place] [id number] Social History Tobacco Use Types Packs/Day Years Used Date Smoking Tobacco: Former Cigarettes 0.5 20 0 12/01/1990 - 12/01/2010 Smokeless Tobacco: Never Alcohol Use Standard Drinks/Week Comments Yes 0 (1 standard drink = 0.6 oz pur e alcohol) Social once every 3 months Sex and Gender Information Value Date Recorded Sex Assigned at Male 09/17/2018 5:00 PM FUEL QUALITY TECH Gender Identity Male 09/17/2018 5:00 PM FUEL QUALITY TECH Sexual Orientation Straight 09/17/2018 5: 00 PM FUEL QUALITY TECH documented as of this encounter Plan of Treatment Not on file documented as of this encounter Visit Diagnoses Not on filedocumented in this encounter Additional Health Concerns Infection Onset Date Last Indicated Resolved Time COVID-19 08/27/2020 08/27/2020 09/17/2020 11:4 0 PM FUEL QUALITY TECH documented as of this encounter Care Teams Senior Mortgage Underwriter Relationship Specialty Start Date End Date Maya Goyal MD [address] [place] [address] PCP - General 05/03/04 11/14/22 Maya Goyal MD [address] [place] [address] PCP - Assigned PCP 10/22/09 11/26/18 No Ref-Primary, Physician PCP - General 11/15/22 Eva Mckenna RN Clinic Temperer Primary Care - CC 02/19/18 Maya Goyal MD [address] [place] [address] Assigned PCP 06/27/12 10/17/23 Mehdi Sen MD [address] [place] [address] Assigned Musculoskeletal Provider 07/16/20 12/18/20 Erlin Delcid MD [address] [address] Assigned Surgical Provider 09/12/20 Elicia Bedoya [facility] [address] [place] [address] 8[address] [place] [address] Pharmacist Pharmacist 11/09/20 12/06/20 Kae Whipple [facility] [address] [place] [address] Pharmacist Pharmacist 11/30/20 12/06/20 [place] [address] [address] Assigned Musculoskeletal Provider 08/14/21 10/27/22 Kae Whipple [facility] [address] [place] [address] Assigned MTM Pharmacist 03/18/22 Maya Goyal MD [address] [place] [address] Assigned Pain Medication Provider 10/02/22 03/23/23 Mehdi Bass DPM [facility] [employer] [address] [address] Assigned Surgical Provider 10/28/22 [facility] [address] [place] [address] Assigned PCP 10/18/23 documented as of this encounter
--- OUTSIDE RECORDS SUMMARY | 2024-07-11 13:31 | XMS_ITS ---
Author Organization [facility] Address [address] [place] [address] [address] [place] [address] Care Team Providers Care Senior Software Tester Name Role Phone Caryl Shi Primary Care Provider Karlo Hewitt Unavailable [phone] Catia Swift MD Unavailable Unavailable Michael Suárez Unavailable [phone] REASON FOR VISIT F/u week of 09/01--JF BV Encounters Encounter Location Date Provider Diagnosis [facility] [address] [place] [address] [address] [place] [address] 07/07/2024 Michael Suárez Plan Of Treatment No Information Progress Notes * Rafa RIVAS JrDOB: 8 (64 yo M)Acc No.[id number]:07/07/2024 Patient:?Rafa RIVAS Jr :1960???Age:64 Y???Sex:Male Phone: Address:[facility] Arti Knapp [place] [address] * * Date:?
--- OUTSIDE RECORDS SUMMARY | 2024-07-11 13:31 | XMS_ITS | Encounter Summary ---
Author Organization [facility] Address [address] [place] [address]. [place] [address] Care Team Providers Care Biofuels Production Manager Name Role Phone Maay Goyal MD Primary Care Provider [phone] None Primary Care Provider UnavailEva Brannon RN Unavailable [phone] Maya Goyal MD Unavailable Maya Goyal MD Unavailable Mehdi Sen MD Unavailable [phone] Erlin Delcid MD Unavailable [phone] Elicia Bedoya [facility] Unavailable [phone] Kae Whipple [facility] Unavailable [phone] Mehdi Bass DPM Unavailable [phone] Kae Whipple [facility] Unavailable [phone] Maya Goyal MD Unavailable No Ref-Primary, Physician Primary Care Provider Mehdi Bass DPM Unavailable [phone] [facility] Unavailable Encounter Details Date Type Department Care Team (Late st Contact Info) Description 01/25/2003 [place] [address] [place] [address] Maya Goyal MD [address] [facility] [address] [place] [address] ER ENCOUNTER (Primary Dx) Social History Tobacco [...] Sex Assigned at Male 09/17/2018 5:00 PM BUTTON GRADER Gender Identity Male 09/17/2018 5:00 PM BUTTON GRADER Sexual Orientation Straight 09/17/2018 5: 00 PM BUTTON GRADER documented as of this encounter Progress Notes * 01/25/2003 11:59 PM CDTAddended by: CAMERON MURRY on: 02/03/2003,11:27 AM Modules accepted: Progress Notes 00: 00 Emergency Department Encounter-EDWARD ERVIN () [Entered: 00:00 Transcri ption ([facility])] : 56 PRIMARY MD: Maya Goyal [...] No known d rug allergies. SOCIAL HISTORY: [employer]. He is supposed to work tonight. He [...] next [address] Follow up with Dr. oGyal in the next 48 hours for re-evaluation. [id number]_ EDWARD DICKINSON MD MT: Document: [id number] [place], [place] Name: CASSIE RIVAS EMERGENCY ROOM ENCOUNTER Page 2 of 2 LCN: JOHNNA DSC: [place], [place] Name: MR#: : Admit Date: CASSIE [...] COVID-19 08/27/2020 08/27/2020 09/17/2020 11:4 0 PM BUTTON GRADER documented as of this encounter Care Teams Biofuels Production Manager Relationship Specialty Start Date End Date Maya Goyal MD [address] [place] [address] PCP - General 05/03/04 11/14/22 None PCP - General 12/01/02 05/02/04 Maya Goyla MD [address] [place] [address] PCP - Assigned PCP 10/22/09 11/26/18 No Ref-Primary, Physician PCP - General 11/15/22 Eva Mckenna RN [facility] Acoustical Carpenter Primary Care - CC 02/19/18 Maya Goyal MD [address] [place] [address] Assigned PCP 06/27/12 10/17/23 Mehdi Sen MD [address] [place], [place] [address] Assigned Musculoskeletal Provider 07/16/20 12/18/20 Erlin Delcid MD [address] [address] Assigned Surgical Provider 09/12/20 Elicia Bedoya [facility] [address] [place] [address] [address] [place] [address] Pharmacist Pharmacist 11/09/20 12/06/20 Kae Whipple [facility] [address] [place] [address] Pharmacist Pharmacist 11/30/20 12/06/20 Mehdi Bass DPM [id number] [place] [address] [address] [place] [address] Assigned Musculoskeletal Provider 08/14/21 10/27/22 Kae Whipple [facility] [address] [place] [address] Assigned MTM Pharmacist 03/18/22 Maya Goyal MD [address] [place] [address] [address] [place] [address] Assigned Pain Medication Provider 10/02/22 03/23/23 Mehdi Bass DPM [id number] [place] [address] [place] [address] Assigned Surgical Provider 10/28/22 [facility] [address] [place] [address] Assigned PCP 10/18/23 documented as of this encounter
--- OUTSIDE RECORDS SUMMARY | 2024-07-11 13:31 | XMS_ITS ---
Author Organization [facility] Address [address] [place] [address] [address] [place] [address] Care Team Providers Care University Intern Name Role Phone Caryl Shi Primary Care Provider UnavailKarlo Wilkins Unavailable [phone] Catia Swift MD Unavailable Unavailable Michael Suárez Unavailable [phone] REASON FOR VISIT 4 Week Follow-Up Medications [...] for 17 Days Active UltiCare Short Pen [place] 31G X 8 MM DIRECTED for 30 Days Active Encounters Encounter Location Date Provider Diagnosis BV [address] [facility] [address] [facility] [address] [place] [address] 06/17/2024 Michael Suárez Other chronic pain G89.29 [...] documentation has been reviewed by the aforementioned DECAL DECORATOR as well as Karlo Ortiz MD, prior [...] documentation has been reviewed by the aforementioned DECAL DECORATOR as well as Karlo Ortiz MD, prior [...] performed and the decisions made by them. Progress Notes * Rafa RIVAS JrDOB: (64 yo M)Acc No.[id number]:06/17/2024 Progress Notes Patient:?Rafa RIVAS Jr Provider:?Michael Suárez NP :1960???Age:64 Y???Sex:Male Adiel e:06/17/2024 Phone: [facility] [facility] [facility] Pcp:Caryl Shi Subjective: * Chief Complaints: * ???1. 4 Week Follow-Up. * HPI: ???Clinic visit:? Rafa (Bill) returns regarding his chronic low back, neck, and knee pain. Procedure History : Several lumbar injections at [facility] have not been helpful. He also completed cervical injections at [facility]. Genicular RFAs have been completed in the past without relief - 01/01/2024 Lumbar injection ([facility]) : good relief - 11/21/2022 L5-S1 FANTASMA : 60-70% relief - 12/07/2022 bilateral knee injections (no relief) - 04/13/2023 Right knee injection : 60% relief, spiked blood pressure Previous Consults : Srinath Curiel MD of [facility] for knee treatment. Dr. Hoff (Surgeon) discussed SCS vs. L5-S1 RFA Previous Therapy : He completed knee therapy in 2019 without benefit. He has also completed therapy at [facility]. Current Pain Medications : Oxycodone 5mg BID PRN, Gabapentin, Methocarbamol 750mg BID, Meloxicam 7.5mg QD, Tizanidine 4mg QHS, Meloxicam BID PRN, NyQuil Previous Pain Medications : Amitriptyline returns to clinic today for a follow up evaluation regarding his chronic ____ pain. I have reviewed the [facility] database and did not find any [...] a day , Taking UltiCare Short Pen [place] 31G X 8 MM Miscellaneous DIRECTED , [...] Electronic signature of Stanislav Suárez CNP on 07/11/2024 at 01:30 PM CDT Sign off status: Pending * Provider:?Michael Suárez NP Date:?06/17 Generated for Andi fields/Mona/Jacintoitting on:?07/11/2024 01:30 PM CDT History and Physical Notes * Examination Category Sub-Category Detail Notes Musculoskeletal Constitutional: morbid obese bod y habitus, in no acute distress Musculoskeletal: Uses cane for ambula tion Skin: Neurological normal coordination upper extremities, normal coordination lower extremities, alert and oriented x3, normal mood and affect
--- OUTSIDE RECORDS SUMMARY | 2024-07-11 13:32 | XMS_ITS | Data Portability ---
Author Organization [facility] Address [address] [place] [address] Care Team Providers Care Land Commissioner Name Role Phone AMANDEEP TODD Primary Care [...] Orders tamsulosin 0.4 mg capsule 2022 023 [facility], [address], [place], [address], 10:23:19 finasteride 5 mg tablet 2022 023 [place] [facility], [address], [place], [address], 3 10:23:19 finasteride 5 mg tablet 2022 023 [facility] [address], [address], [place], [address], 3 15:52:06 tamsulosin 0.4 mg capsule 2022 023 [facility] [address], [address], [place], [address], 3 15:52:06 Patient TargetsNo targets recorded. Patient [...] Time 3 Bladder Scan completed Asuncion Batres [facility] 12/27/2022 10:13:26 2 Bladder Scan completed Girs Dwyer [facility] 05/31/2022 11:23:55 9 colonoscopy completed Gris Dwyer [facility] 05/31/2022 11:23:05 Imaging Results Imaging Date [...] Updated DateTime 05/31/2022 187.96 cm 41.2 kg/m2 244712.15 cinthia Dwyer [facility] 05/31/2022 11:22:11 Date Recorded Body height Body mass index (BMI) Body weight Provider Name and Address Organization Details Last Updated DateTime 12/27/2022 187.96 cm 41.2 kg/m2 987685.15 cinthia Batres [facility] 12/27/2022 10:15:31 Date Recorded Body height Body mass index (BMI) Body weight Provider Name and Address Organization Details Last Updated DateTime 05/30/2023 187.96 cm 41.2 kg/m2 147747.15 cinthia Dhaval Cruz MD [address] [place] [address],[address], [address] 05/30/2023 15:20:19 Social History Question Answer Notes LastModified by Organizat ion Details LastModified Time Tobacco Smoking Status [facility] 05/31/2022 11:22:52 What Is Your Level [...] Time Tdap 06/24/2010 completed Dhaval Cruz MD [address] [place] [address],[address], [place], [address], [facility] 05/30/2023 15:20:28 Tdap 07/19/2016 completed Dhaval Cruz MD [address] [place] [address],[address], [place], [address], [facility] 05/30/2023 15:20:28 Hep A-Hep B 12/28/2010 completed Dhaval Cruz MD [address] [place] [address],[address], [place], [address], [facility] 05/30/2023 15:20:28 Hep A-Hep B 06/24/2010 completed Dhaval Cruz MD [address] [place] [address],[address] [place] [address], [address], [facility] 05/30/2023 15:20:28 Hep A-Hep B 07/25/2010 completed Dhaval Cruz MD [address] [place] [address],[address], [address], [facility] 05/30/2023 15:20:28 zoster recombinant 10/23/2022 completed Oumou pepe [facility] 07/25/2023 13:14:35 zoster recombinant 12/25/2022 completed Oumou pepe [facility] 07/25/2023 13:14:35 Past Encounters Encounter ID Performer Location Encounter Start Date Encounter Closed Date Diagnosis/Indication Diagnosis SNOMED-CT Code Diagnosis ICD10 Code [id number] MD TANNER Rao_Maria Eugenia [address] [place] [address] 05/31/2022 11:07:00 06/05/2022 15:44:25 Increased frequency of urination 076059442 R35.0 Nocturia 190146291 R35.1 Urgent cheyanne carlyle to urinate 49357669 R39.15 [id number] MD TANNER Rao_Maria Eugenia [address] [place] [address] 12/27/2022 10:02:20 12/29/2022 11:02:58 Increased frequency of urination 686020495 R35.0 Nocturia 093975405 R35.1 Urgent cheyanne carlyle to urinate 90997866 R39.15 [id number] Dhaval Cruz MD [facility] [address] [place] [address] 03/29/2023 12:04:24 04/04/2023 09:06:12 [id number] Marisol Donaldson [facility] [address] [place] [address] 04/05/2023 09:56:42 04/13/2023 07:37:49 [id number] Dhaval Cruz MD [facility] [address] [place], [place] [address] 05/30/2023 15:13:21 06/05/2023 12:26:38 Increased frequency of urination 816877680 R35.0 Nocturia 435838480 R35.1 Urgent cheyanne carlyle to urinate 36180812 R39.15 Health Concerns Section Related Observation LastModified by Organization Detai ls LastModified Time None Recorded Concern Status LastModified by Organization Details LastModified Time None Recorded Advance Directives Directive None Recorded Payers Encounter Date Sequence Insurance Name Policy Number Policy Dobson Covered Member ID Dobson Member ID Guarantor Name 05/31/2022 1 [employer] (MEDICARE REPLACEMENT/A DVANTAGE - PPO) Rafa Hickey [id number] Rafa Ruggieroo 12/27/2022 1 [employer] (MEDICARE REPLACEMENT/A DVANTAGE - PPO) Rafa Hickey [id number] Rafa Ruggieroo 03/29/2023 1 [employer] (MEDICARE REPLACEMENT/A DVANTAGE - PPO) Rafa Hickey [id number] Rafa Ruggieroo 04/05/2023 1 [employer] (MEDICARE REPLACEMENT/A DVANTAGE - PPO) Rafa Hickey [id number] Rafa Ruggieroo 05/30/2023 1 [employer] (MEDICARE REPLACEMENT/A DVANTAGE - PPO) Rafa Hickey [id number] Rafa Hickey Notes Date Note Type Note [...] history. Dhaval Cruz MD [address] [facility],[address], [place], [address], [facility] 05/31/2022 13:15:14 12/27/2022 text/html HPI Notes: [...] medications. Dhaval Cruz MD [address] [facility],[address], [place], [address], [facility] 12/27/2022 13:46:55 05/30/2023 text/html HPI [...] some of the history. Dhaval Cruz MD [address] [facility],[address], [place], [address], [facility] 05/30/2023 15:53:07
--- OUTSIDE RECORDS SUMMARY | 2024-07-11 13:32 | XMS_ITS | Patient Health Record ---
Author Organization [facility] Address [address] [place] [address] [address] [place] [address] Care Team Providers Care Proof Coin Collector Name Role Phone Caryl Shi Primary Care Provider UnavailKarlo Wilkins Unavailable [phone] Catia Swift MD Unavailable Unavailable Collin Tafoya Unavailable [phone] Kash Valdez Unavailable [phone] Michael Suárez Unavailable [phone] Allergies No Known Allergies Results Component Value [...] day at bedtime for 30 days Active amLODIPine Besylate 5 MG Oral for 90 Days Active Meloxicam 7.5 MG 1 tablet Orally Once a day for 30 days Active Tamsulosin HCl 0.4 MG Oral for 90 Days Active Lantus SoloStar 100 UNIT/ML Subcutaneous for 17 Days Active Carvedilol 25 MG Oral for 90 Days Active UltiCare Short Pen [place] 31G X 8 MM DIRECTED for 30 Days Active Spironolactone 50 MG Oral for 30 Days Active Furosemide 20 MG Oral for 90 Days Active oxyCODONE HCl 5 MG 1 tablet as needed Orally every 8-12 hours for 30 days ok to fill 07/07/2024 Low back pain, unspecified M54.50, G89.29 PRINTED Active Finasteride 5 MG TAKE ONE TABLET BY MOUTH ONCE DAILY Oral for 30 Days Active DULoxetine HCl 60 MG Oral for 30 Days Active traZODone HCl 100 MG Oral for 90 Days Active Social [...] W/U Status Risk Notes Problem Opioid dependence (63440993) Opioid dependence, uncomplicated (F11.20) Active confirmed Problem Chronic pain (75946253) Other chronic pain (G89.29) Active confirmed Problem Primary osteoarthritis (576537475) Unilateral primary osteoarthritis, right knee (M17.11) Active confirmed Problem Osteoarthritis of knee (129370146) Unilateral primary osteoarthritis, left knee (M17.12) Active confirmed Problem Acquired spondylolisthesis (119759879) Spondylolysis, lumbosacral region (M43.07) Active confirmed Problem Lumbosacral radiculopathy (3054549) Radiculopathy, lumbosacral region (M54.17) Active confirmed Problem High risk drug monitoring status (475341270) 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 (Z79.891) Active confirmed Problem Low back pain (761463800) Low back pain, unspecified (M54.50) Active confirmed Vital Signs Blood pressure diastolic 88 mm Hg 07/07/2024 Height 74 in 07/07/2024 Blood pressure systolic 128 mm Hg 07/07/2024 Weight 337 lbs 07/07/2024 BMI 43.26 kg/m2 07/07/2024 Encounters Encounter Location Date Provider Diagnosis [facility] [address] [place] [address] 07/26/2023 Kash Valdez Other chronic pain G89.29 ; Radiculopathy, lumbosacral region M54.17 ; Cervicalgia M54.2 and Spondylolysis, lumbosacral region M43.07 BV [address] [facility] [address] [place] [address] 08/30/2023 Kash Valdez Other chronic pain G89.29 ; Radiculopathy, lumbosacral region M54.17 ; Cervicalgia M54.2 and Spondylolysis, lumbosacral region M43.07 [address] [facility] [address] [place] [address] 09/06/2023 Kashruth Valdez assisted (current) use of opiate analgesic Z79.891 and Opioid dependence, uncomplicated F11.20 [address] [facility] [address] [place] [address] 10/04/2023 Kashruth Valdez Spondylolysis, lumbosacral region M43.07 ; Radiculopathy, lumbosacral region M54.17 ; Cervicalgia M54.2 and Other chronic pain G89.29 [address] [facility] [address] [address] 11/08/2023 Kash Valdez Spondylolysis, lumbosacral region M43.07 ; Radiculopathy, lumbosacral region M54.17 ; Cervicalgia M54.2 and Other chronic pain G89.29 BV [address] [facility] [id number] [place] [address] [address] 12/04/2023 Michael Suárez Other chronic pain G89.29 ; Low back pain, unspecified M54.50 ; Opioid dependence, uncomplicated F11.20 ; assisted (current) use of opiate analgesic Z79.891 and Encounter for screening for other disorder Z13.89 BV [address] [facility] [address] [address] 01/03/2024 Michael Suárez Other chronic pain G89.29 and Low back pain, unspecified M54.50 [address] [facility] [address] [address] 02/07/2024 Kash Valdez Other chronic pain G89.29 and Low back pain, unspecified M54.50 [address] [facility] [address] [place] [address] 03/11/2024 Michael Suárez Other chronic pain G89.29 and Low back pain, unspecified M54.50 BV [address] [facility] [address] [place] [address] 04/08/2024 Michael Suárez Other chronic pain G89.29 and Low back pain, unspecified M54.50 [address] [facility] [address] [place] [address] 07/07/2024 Michael Suárez assisted (current) use of opiate analgesic Z79.891 ; Spondylolysis, lumbosacral region M43.07 ; Opioid dependence, uncomplicated F11.20 and Other chronic pain G89.29 [facility] [address] [place] [address] [address] [place] [address] 07/07/2024 Michael Suárez [facility] [address] [place] [address] [address] [place] [address] 07/19/2023 Karlo Ortiz Other chronic pain G89.29 [facility] [address] [place] [address] [address] [place] [address] 08/01/2023 Karlo Ortiz Other chronic pain G89.29 [facility] [address] [place] [address] [address] [place] [address] 08/07/2023 Collin Tafoya Other chronic pain G89.29 [facility] [address] [place] [address] [address] [place] [address] 08/23/2023 Karlo Ortiz [facility] [address] [facility] [address] [facility] [address] [place] [address] 08/30/2023 Kash Valdez [facility] [address] [facility] [address] [facility] [address] [place] [address] 01/03/2024 Michael Suárez [facility] [address] [place] [address] [address] [place] [address] 04/23/2024 Karlo Ortiz [facility] [address] [place] [address] [address] [place] [address] 05/02/2024 Michael Suárez Other chronic pain G89.29 [facility] [address] [place] [address] [address] [place] [address] 06/17/2024 Michael Suárez Other chronic pain G89.29 Assessments Encounter Date Diagnosis (ICD Code) Assessment Notes Treatment Notes Treatment Clinical Notes 07/26/2023 Other chronic pain (ICD-10 - G89.29) Rafa returns to clinic today for a follow-up evaluation regarding his chronic low back, neck, and bilateral knee pain. I have reviewed the [facility] database and did not find any [...] bilateral knee pain. 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 I have reviewed the [facility] database and did not find any [...] his chronic pain. I have reviewed the [facility] database and did not find any [...] his chronic pain. I have reviewed the [facility] database and did not find any [...] his chronic pain. I have reviewed the [facility] database and did not find any [...] 05/02/2024 Other chronic pain (ICD-10 - G89.29) 12/04/2023 Low back pain, unspecified (ICD-10 - M54.50) 01/03/2024 Other chronic pain (ICD-10 - G89.29) Rafa returns to clinic today for a follow-up evaluation regarding his acute on chronic pain. I have reviewed the [facility] database and did not find any [...] with any questions, problems or concerns. 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 I have reviewed the [facility] database and did not find any [...] 12/04/2023 Opioid dependence, uncomplicated (ICD-10 - F11.20) 07/07/2024 Other chronic pain (ICD-10 - G89.29) Vinod returns to clinic today for a follow-up evaluation regarding his chronic low back, neck, and bilateral knee pain. We discussed his current symptoms and medications. Regarding medications, I have reviewed the [place] [facility] database and his most recent UDS, finding [...] with any questions, problems or concerns. 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 I have reviewed the [place] [facility] database and did not find any inconsistencies. [...] Spondylolysis, lumbosacral region (ICD-10 - M43.07) 12/04/2023 Encounter for screening for other disorder [...] the decisions made by her. 07/26/2023 Other Ann Hoover, am serving as a scribe to [...] to document services personally performed by Michael Jose Armando [facility], based upon my observations and the provider's statements to me. All documentation has been reviewed by the aforementioned ACTUARIAL ANALYST as well as Bakari Stringer MD, prior [...] made by them. 08/30/2023 Other I, Ann yee, am serving as [...] to document services personally performed by Michael Jose Armando CNP, based upon my observations and the provider's statements to me. All documentation has been reviewed by the aforementioned ACTUARIAL ANALYST as well as Karlo Ortiz MD, prior [...] documentation has been reviewed by the aforementioned ACTUARIAL ANALYST as well as Karlo Ortiz MD, prior [...] documentation has been reviewed by the aforementioned ACTUARIAL ANALYST as well as Karlo Ortiz MD, prior [...] documentation has been reviewed by the aforementioned ACTUARIAL ANALYST as well as Karlo Ortiz MD, prior [...] performed and the decisions made by them. 07/07/2024 Other I, Sebastian mabry, am serving as a scribe to document services personally performed by Michael Suárez NP, based upon my observations and the provider's statements to me. All documentation has been reviewed by the aforementioned PROTEOMICS SCIENTIST. Kiko, Michael Suárez NP, attest that the above named individual is acting in scribe capacity, has observed my performance of the services and has documented them in accordance with my direction. The documentation recorded by the scribe accurately reflects the service I personally performed and the decisions made during the clinic visit. Plan Of Treatment Pending Test Test Name Order Date Oral Toxicology Screen 07/07/2024 Insurance Providers Payer Name Payer Address Payer Phone Subscriber Number Group Number Insured Name Patient Relationship to Insured Coverage Start Date Coverage End Date [facility] [employer] [address] [address] [place] [address] [id number] Ruperto Rafa Self - patient is the insured Medical [...]
== END 2024-07-11 13:26 | disposition home or self-care (01) ==
LOC: WOUND 13:25
PROVIDERS: PCP Family Medicine; Visit Provider Family Medicine
DX: E11.621 Type 2 diabetes mellitus with foot ulcer (principal); L97.512 Non-pressure chronic ulcer of other part of right foot with fat layer exposed; L97.522 Non-pressure chronic ulcer of other part of left foot with fat layer exposed; Z79.4 Long term (current) use of insulin; Z79.84 Long term (current) use of oral hypoglycemic drugs
CPT/HCPCS: 11042

== ENCOUNTER 2024-09-16 09:40 | Outpatient (CLI) | payer OTHER, SELFPAY ==
--- OUTSIDE RECORDS SUMMARY | 2024-09-12 11:18 | XMS_ITS ---
Author Organization [facility] Address [address] [place] [address] [address] [place] [address] Care Team Providers Care Otolaryngology Physician Name Role Phone Caryl Shi Primary Care Provider Karlo Hewitt Unavailable [phone] Catia Swift MD Unavailable Unavailable Michael Suárez Unavailable [phone] REASON FOR VISIT 08/04 F/u week of 09/01--[facility], scheduled Encounters Encounter Location Date Provider Diagnosis [facility] [address] [place] [address] [address] [place] [address] 07/07/2024 Michael Suárez Plan Of Treatment No Information Progress Notes * Rafa RIVAS JrDOB: [birth year] (64 yo M)Acc No.[id number]:07/07/2024 Patient: Yamileth RAMOSYamileth Rafa Beth :1960 A ge:64 Y S ex:Male Phone: Address:[facility] [place] [address] * true * Date: Generated for Andi fields/Mona/eTransmitting on: 1 11/13/2023 11:18 AM SKID STRAPPER
--- OUTSIDE RECORDS SUMMARY | 2024-09-12 11:18 | XMS_ITS ---
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 Name Role Phone Caryl Shi Primary Care Provider UnavailKarlo Wilkins Unavailable [phone] Catia Swift MD Unavailable Unavailable Michael Suárez Unavailable [phone] Allergies No Known Allergies REASON FOR VISIT Low Back Pain, Bilateral Knee Pain, Bilateral Hip Pain Medications Medication SIG (Take, Route, Frequency, Duration) Notes Start Date End Date Status Furosemide 20 MG Oral for 90 Days Active tiZANidine HCl 4 MG 1 tablet as needed Orally once a day at bedtime for 30 days Active Meloxicam 7.5 MG 1 tablet Orally Once a day for 30 days Active Methocarbamol 750 MG 1 tablet Orally(muscle relaxant for daytime use, Do not take with Tizanidine- only take 1 tablet at a time) Twice a day for 30 days Active oxyCODONE HCl 5 MG 1 tablet as needed Orally every 8-12 hours for 30 days ok to fill 09/06/2024 Low back pain, unspecified M54.50, G89.29 PRINTED Active traZODone HCl 100 MG Oral for 90 Days Active Tamsulosin HCl 0.4 MG Oral for 90 Days Active DULoxetine HCl 60 MG Oral for 30 Days Active Finasteride 5 MG TAKE ONE TABLET BY MOUTH ONCE DAILY Oral for 30 Days Active Spironolactone 50 MG Oral for 30 Days Active Lantus SoloStar 100 UNIT/ML Subcutaneous for 17 Days Active UltiCare Short Pen [place] 31G X 8 MM DIRECTED for 30 Days Active amLODIPine Besylate 5 MG Oral for 90 Days Active Carvedilol 25 MG Oral for 90 Days Active Social History Tobacco Use: Social History Observation Description Date Details (start date - stop date) Unknown Tobacco Use/Smoking: Question Answer Notes Are you a Uses tobacco in other forms Additional Findings: Tobacco User e-Cigarette Problems Problem Type SNOMED Code ICD Code Onset Dates Problem Status W/U Status Risk Notes Problem Pain of left hip joint (finding) (408084740753064 ) Pain in left hip (M25.552) Active confirmed Problem Arthralgia of the pelvic region and thigh (568143486) Pain in right hip (M25.551) Active confirmed Vital Signs Height 74 in 09/03/2024 Weight 337 lbs 09/03/2024 BMI 43.26 kg/m2 09/03/2024 Blood pressure systolic 126 mm Hg 09/03/20 24 Blood pressure diastolic 82 mm Hg 024 Encounters Encounter Location Date Provider Diagnosis [facility] [address] [facility] [address] [place] [address] 09/03/2024 Michael Suárez Unilateral primary osteoarthritis, right knee M17.11 ; Low back pain, unspecified M54.50 ; Unilateral primary osteoarthritis, left knee M17.12 ; Pain in left hip M25.552 ; Pain in right hip M25.551 and Other chronic pain G89.29 Assessments Encounter Date Diagnosis (ICD Code) Assessment Notes Treatment Notes Treatment Clinical Notes Section Notes 09/03/2024 Unilateral primary osteoarthritis, right knee (ICD-10 - M17.11) 09/03/2024 Low back pain, unspecified (ICD-10 - M54.50) 09/03/2024 Unilateral primary osteoarthritis, left knee (ICD-10 - M17.12) 09/03/2024 Pain in left hip (ICD-10 - M25.552) 09/03/2024 Pain in right hip (ICD-10 - M25.551) 09/03/2024 Other chronic pain (ICD-10 - G89.29) Bill returns to clinic today for a follow-up evaluation regarding his chronic low back, neck, and bilateral knee pain. We discussed his current symptoms and medications. Regarding medications, I have reviewed the [facility] database and his most recent OTS, finding no inconsistencies. Therefore, I have refilled his oxycodone at the current dose of 5MG prn as he continues to note moderate relief without significant adverse side effects. He consented to a routine oral tox screen for compliance monitoring. This treatment plan was reviewed with Vinod, and he was agreeable. He will return in two months for further evaluation or sooner if needed. I will continue to monitor his progress, adjusting his treatment plan as necessary. Plan: 1. OTS reviewed - consistent 2. Refill Oxycodone 5MG prn - printed 3. Follow-up in two months Discharge instructions [...] call with any questions, problems or concerns. 09/03/2024 Other Kiko, Ann yee, am serving as a scribe to document services personally performed by Michael Suárez CNP, based upon my observations and the provider's statements to me. All documentation has been reviewed by the aforementioned IVORY CARVER. I, Michael Suárez CNP, attest that the above named individual is [...] Low back pain, unspecified M54.50, G89.29 PRINTED Treatment Notes Assessment Notes Other chronic pain Vinod returns to clinic today for a follow-up evaluation regarding his chronic low back, neck, and bilateral knee pain. We discussed his current symptoms and medications. Regarding medications, I have reviewed the [facility] database and his most recent OTS, finding no inconsistencies. Therefore, I have refilled his oxycodone at the current dose of 5MG prn as he continues to note moderate relief without significant adverse side effects. He consented to a routine oral tox screen for compliance monitoring. This treatment plan was reviewed with Vinod, and he was agreeable. He will return in two months for further evaluation or sooner if needed. I will continue to monitor his progress, adjusting his treatment plan as necessary. Plan: 1. OTS reviewed - consistent 2. Refill Oxycodone 5MG prn - printed 3. Follow-up in two months Discharge instructions [...] with any questions, problems or concerns. Other iKko, Ann Kuhn, am serving as a scribe to document services personally performed by Michael Suárez CNP, based upon my observations and the provider's statements to me. All documentation has been reviewed by the aforementioned IVORY CARVER. I, Michael Suárez CNP, attest that the above named individual is acting in scribe capacity, has observed my performance of the services and has documented them in accordance with my direction. The documentation recorded by the scribe accurately reflects the service I personally performed and the decisions made during the clinic visit. Next Appt Details Follow Up: 2 Months, Reason: Progress Notes * Rafa RIVAS DOB: (64 yo M)Acc No.[id number]:09/03/2024 Progress Notes Patient: Rafa GENTILE Provider: Gordon Suárez NP :1960 A ge:64 Y S ex:Male Date:09/03/2024 Phone: Address:[facility] [address], [address] [facility], [id number] Pcp:Caryl Shi Subjective: * Chief Complaints: * L ow Back PainBilateral Knee PainBilateral Hip Pain * HPI: C linic visit: Rafa Calabrese) is a 64 year old male who returns to clinic today for a follow up evaluation regarding his chronic low back, neck, and knee pain. Interval History: Vinod reports that his pain has remained persistent and bothersome in the interim. Procedure History : Several lumbar injections at [facility] have not been helpful. He also completed cervical injections at [facility]. Genicular RFAs have been completed in the past without relief - 01/01/2024 Lumbar injection ([facility]) : good relief - 11/21/2022 L5-S1 FANTASMA : 60-70% relief - 12/07/2022 bilateral knee injections (no relief) - 04/13/2023 Right knee injection : 60% relief, spiked blood pressure Previous Consults : Srinath Curiel MD of [facility] for knee treatment. Dr. Hoff (Surgeon) discussed SCS vs. L5-S1 RFA Previous Therapy : He completed knee therapy in 2019 without benefit. He has also completed therapy at [facility]. Current Pain Medications : Oxycodone 5mg BID PRN, Gabapentin, Methocarbamol 750mg BID, Meloxicam 7.5mg QD, Tizanidine 4mg QHS, Meloxicam BID PRN, NyQuil Previous Pain Medications : Amitriptyline. P QRS MEASURE: 154,[address] you had two or more falls in the past year? Y es, H ave you had any falls with injury in the past year? N o, P celeste of Care: D ocumented. D epression Screening: PHQ-9 L ittle interest or pleasure in doing things N ot at all, F eeling down, depressed, or hopeless S everal days, T rouble falling or staying asleep, or sleeping too much S everal days, F eeling tired or having little energy N ot at all, P oor appetite or overeating N ot at all, F eeling bad about yourself or that you are a failure, or have let yourself or your family down S everal days, T rouble concentrating on things, such as reading the newspaper or watching television N ot at all, M oving or speaking so slowly that other people could have noticed; or the opposite, being so fidgety or restless that you have been moving around a lot more than usual N ot at all, T houghts that you would be better off or of hurting yourself in some way N ot at all, T otal Score 3 , I nterpretation M inimal Depression. I ntervention D epression Screening Findings?Negative, N arnie of the standardized tool used for adult depression screening: P atient Health Questionnaire (PHQ-9). * ROS: G eneral/Constitutional: Chills/Fevers N o. F atigue N o. W eight gain?No. W eight loss N o. E ndocrine: Dizziness Y es. E xcessive sweating N o. W eakness N o. R espiratory: Chest pain N o. C ough N o. S hortness of breath at rest N o. G astrointestinal: Abdominal pain N o. B lood in stool N o. C onstipation N o. D iarrhea N o. H ematology: Easy bruising N o. P rolonged bleeding N o. S wollen glands N o. M usculoskeletal: Painful joints N o. S wollen joints N o. S kin: Skin lesion(s) N o. N eurologic: Balance difficulty N o. H eadache N o. T ingling/Numbness N o. P sychiatric: Alcoholism N o. A nxiety N o. S ubstance abuse?No. * Medical History: * Surgical History: R ight knee meniscus cartilage x2 2014, 2017Left hamstring reattachment 11/07/2019 * Hospitalization/Major Diagno stic Procedure: S ee surgical history * Family History: F ather: , Aortic surgery, diagnosed with Unspecified heart disease. M other: , Cancer. * Social History: T obacco Use: T obacco Use/Smoking A re you a U ses tobacco in other forms, A dditional Findings: Tobacco User e -Cigarette. W ork Status: Keisha roque of Employment: [employer] 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 Employment Status: not working. * Medications: T akingUltiCare Short Pen [place]ow[place] 31G X 8 MM Miscellaneous DIRECTED Lantus [...] tablet as needed Orally every 8-12 hours ok to fill 08/07/2024, Notes to Pharmacist: Low back pain, unspecified M54.50, G89.29 PRINTEDMedication List reviewed and reconciled with the patientTaking UltiCare Short Pen [place] 31G X 8 MM Miscellaneous DIRECTED Taking [...] tablet as needed Orally every 8-12 hours ok to fill 08/07/2024, Notes to Pharmacist: Low back pain, unspecified M54.50, G89.29 PRINTEDMedication List reviewed and reconciled with the patient * Allergies: N .K.D.A.no[Allergies Verified] Objective: * Vitals: H t: 74 in, Wt:337lbs, BMI:43.26, BP:126/82mm Hg, VAS-Today:61-10, VAS-Av 1- 10, VAS-High: 10 1-10. * Examination: M usculoskeletal: Constitutional: m orbidly obese, well groomed, in no acute distress. Musculoskeletal: n ormal gait and station, sits comfortably. Skin: N o rashes, scars, or lesions on visible skin. Neurological n ormal coordination upper extremities, normal coordination lower extremities, alert and oriented x3, normal mood and affect. ? Assessment: * Assessment: 1. U nilateral primary osteoarthritis, right knee - M17.11 2 . L ow back pain, unspecified - M54.50 (Primary) 3 . U nilateral primary osteoarthritis, left knee - M17.12 4 . P ain in left hip - M25.552 5 . P ain in right hip - M25.551 6 . O ther chronic pain - G89.29 Plan: * Treatment: 2. O thers Notes: IAnn, am serving as a scribe to document services personally performed by Michael Suárez CNP, based upon my observations and the provider's statements to me. All documentation has been reviewed by the aforementioned IVORY CARVER. Kiko, Michael Suárez CNP, attest that the above named individual is acting in scribe capacity, has observed my performance of the services and has documented them in accordance with my direction. The documentation recorded by the scribe accurately reflects the service I personally performed and the decisions made during the clinic visit. * Procedure Codes: * Preventive Medicine: iSpine Inventory Forms: L ow Back Oswestry O swestry Score (0-100) 5 4,?OSCAR Interpretation 4 0-59 (Severe Disability). Counseling: B [place] Care goal follow-up plan: A rodger Normal BMI Follow-up L ifestyle education regarding diet Patient declined. * Follow Up: 2 Months * Billing Information: * Visit Code: [id number] Established Patient level 3. * Procedure Codes: * PREVENTION INVESTIGATOR Sign off status: Completed true * Provider: Gordon Suárez NP Date: 11/04/2023 Generated for Andi fields/Mona/Jacintoitting on: 11/13/2023 11:18 AM LOSS PREVENTION INVESTIGATOR History and Physical Notes * HPI (History of Present Illness) Category Sub-Category Detail Notes Category Not es Depression Screening PHQ-9 Little inte rest or pleasure in doing things: Not at all Feeling down, depressed, or hopeless: Se veral days Trouble falling or staying asleep, or sl eeping too much: Several days Feeling tired or having little energy: N ot at all Poor appetite or overeating: Not at all [...] some way: Not at all Total Score: 3 Interpretation: Minimal Depression Intervention Depression Screening Findings: N egative Name of the standardized too l used for adult depression screening:: Patient Health Questionnaire (PHQ-9) Clinic visit Rafa Calabrese) is a 64 year old male who returns to clinic today for a follow up evaluation regarding his chronic low back, neck, and knee pain. Interval History: Vinod reports that his pain has remained persistent and bothersome in the interim. Procedure History : Several lumbar injections at [facility] have not been helpful. He also completed cervical injections at [facility]. Genicular RFAs have been completed in the past without relief - 01/01/2024 Lumbar injection ([facility]) : good relief - 11/21/2022 L5-S1 FANTASMA : 60-70% relief - 12/07/2022 bilateral knee injections (no relief) - 04/13/2023 Right knee injection : 60% relief, spiked blood pressure Previous Consults : Srinath Curiel MD of [facility] for knee treatment. Dr. Hoff (Surgeon) discussed SCS vs. L5-S1 RFA Previous Therapy : He completed knee therapy in 2019 without benefit. He has also completed therapy at [facility]. Current Pain Medications : Oxycodone 5mg BID PRN, Gabapentin, Methocarbamol 750mg BID, Meloxicam 7.5mg QD, Tizanidine 4mg QHS, Meloxicam BID PRN, NyQuil Previous Pain Medications : Amitriptyline PQRS MEASURE 154,155 Fall Risk Have you had t wo or more falls in the past year?: Yes Have you had any falls with injury in th e past year?: No Plan of Care:: Documented Examination Category Sub-Category Detail Notes Category Not es Musculoskeletal Constitutional: morbidly obese, well groomed, in no acute distress Musculoskeletal: normal gait and stat ion, sits comfortably Skin: No rashes, scars, or lesions on visible skin Neurological normal coordination upper extremities, normal coordination lower extremities, alert and oriented x3, normal mood and affect
--- OUTSIDE RECORDS SUMMARY | 2024-09-12 11:18 | XMS_ITS ---
Author Organization [facility] Address [address] [place] [address] [address] [facility] [place] [address] Care Team Providers Care Broker In Charge Name Role Phone Caryl Shi Primary Care Provider Karlo Hewitt Unavailable [phone] Catia Swift MD Unavailable Unavailable Michael Suárez Unavailable [phone] REASON FOR VISIT refill Medications Medication SIG (Take, Route, Frequency, Duration) Notes Start Date End Date Status oxyCODONE HCl 5 MG 1 tablet as needed Orally every 8-12 hours for 30 days ok to fill 08/07/2024 Low back pain, unspecified M54.50, G89.29 PRINTED 08/07/2024 Active Encounters Encounter Location Date Provider Diagnosis [facility] [address] [place] [address] [address] [place] [address] 08/07/2024 Michael Suárez Other chronic pain G89.29 Assessments Encounter Date Diagnosis (ICD Code) Assessment Notes Treatment Notes Treatment Clinical Notes Section Notes 08/07/2024 Other chronic pain (ICD-10 - G89.29) Plan Of Treatment Medication Medication Name Sig Start Date Stop Date Notes oxyCODONE HCl 5 MG 1 tablet as needed Orally every 8-12 hours for 30 days 08/07/2024 Low back pain, unspecified M54.50, G89.29 PRINTED Progress Notes * Rafa RIVAS JrDOB: (64 yo M)Acc No.[id number]:08/07/2024 Patient: Yamileth RAMOSRafa Carson Jr :1960 A ge:64 Y S ex:Male Phone: Address:[address] [place] [address] * Refills Refill oxyCODONE HCl Tablet, 5 MG, Orally, 70, 1 tablet as needed, every 8-12 hours, 30 days, Refills=0 * true * Date: Generated for Andi fields/Mona/Jessica on: 11/13/2023 11:18 AM CIVIL ESTIMATOR
--- OUTSIDE RECORDS SUMMARY | 2024-09-12 11:19 | XMS_ITS | Patient Health Record ---
Author Organization [facility] Address [address] [place] [address] [address] [place] [address] Care Team Providers Care Coronary Clinical Specialist Name Role Phone Caryl Shi Primary Care Provider UnavailKarlo Wilkins Unavailable [phone] Catia Swift MD Unavailable Unavailable Kash Valdez Unavailable [phone] Michael Suárez Unavailable [phone] Allergies No Known Allergies Results Component Value Reference Range Notes Oral Toxicology Screen Reviewed date:07/14/2024 01:11:06 PM Interpretation:see results Performing Lab: Notes/Report: see results Reason For Referral No Information Medications Medication SIG (Take, Route, Frequency, Duration) Notes Start Date End Date Status traZODone HCl 100 MG Oral for 90 Days Active Tamsulosin HCl 0.4 MG Oral for 90 Days Active DULoxetine HCl 60 MG Oral for 30 Days Active Finasteride 5 MG TAKE ONE TABLET BY MOUTH ONCE DAILY Oral for 30 Days Active Furosemide 20 MG Oral for 90 Days Active tiZANidine HCl 4 MG 1 tablet as needed Orally once a day at bedtime for 30 days Active Spironolactone 50 MG Oral for 30 Days Active Meloxicam [...] back pain, unspecified M54.50, G89.29 PRINTED Active Lantus SoloStar 100 UNIT/ML Subcutaneous for 17 Days Active UltiCare Short Pen [place] 31G X 8 MM DIRECTED for 30 [...] W/U Status Risk Notes Problem Opioid dependence (38216465) Opioid dependence, uncomplicated (F11.20) Active confirmed Problem Chronic pain (38374991) Other chronic pain (G89.29) Active confirmed Problem Primary osteoarthritis (857575736) Unilateral primary osteoarthritis, right knee (M17.11) Active confirmed Problem Osteoarthritis of knee (893905574) Unilateral primary osteoarthritis, left knee (M17.12) Active confirmed Problem Arthralgia of the pelvic region and thigh (703496351) Pain in right hip (M25.551) Active confirmed Problem Pain of left hip joint (finding) (353064521679864) Pain in left hip (M25.552) Active confirmed Problem Acquired spondylolisthesis (680743077) Spondylolysis, lumbosacral region (M43.07) Active confirmed Problem Lumbosacral radiculopathy (4786274) Radiculopathy, lumbosacral region (M54.17) Active confirmed Problem High risk drug monitoring status (837824621) FDC (current) use of opiate analgesic (Z79.891) Active confirmed Problem Low back pain (476148749) Low back pain, unspecified (M54.50) Active confirmed Vital Signs Blood pressure diastolic 82 mm Hg 09/03/2024 Height 74 in 09/03/2024 Blood pressure systolic 126 mm Hg 09/03/2024 Weight 337 lbs 09/03/2024 BMI 43.26 kg/m2 09/03/2024 Encounters Encounter Location Date Provider Diagnosis [place] [address] [facility] [address] [facility] [address] [place] [address] 01/03/2024 Michael Suárez [facility] [address] [place] [address] [address] [place] [address] 04/23/2024 Karlo Ortiz [facility] [address] [place] [address] 05/02/2024 Michael Suárez Other chronic pain G89.29 [facility] [address] [place] [address] 06/17/2024 Michael Jose Armando Other chronic pain G89.29 [facility] [address] [place] [address] 07/07/2024 Michael Jose Armando [facility] [address] [place] [address] 08/07/2024 Michael Suárez Other chronic pain G89.29 [address] [facility] [address] [address] 10/04/2023 Kash Valdez Spondylolysis, lumbosacral region M43.07 ; Radiculopathy, lumbosacral region M54.17 ; Cervicalgia M54.2 and Other chronic pain G89.29 [address] [facility] [address] [place] [address] 11/08/2023 Kash Valdez Spondylolysis, lumbosacral region M43.07 ; Radiculopathy, lumbosacral region M54.17 ; Cervicalgia M54.2 and Other chronic pain G89.29 [address] [facility] [address] [place] [address] 12/04/2023 Michael Jose Armando Other chronic pain G89.29 ; Low back pain, unspecified M54.50 ; Opioid dependence, uncomplicated F11.20 ; FDC (current) use of opiate analgesic Z79.891 and Encounter for screening for other disorder Z13.89 [address] [facility] [address] [place] [address] 01/03/2024 Michael Jose Armando Other chronic pain G89.29 and Low back pain, unspecified M54.50 [address] [facility] [address] [place] [address] 02/07/2024 Kash Valdez Other chronic pain G89.29 and Low back pain, unspecified M54.50 [address] [facility] [address] [place] [address] 03/11/2024 Michael Suárez Other chronic pain G89.29 and Low back pain, unspecified M54.50 [address] [facility] [address] [place] [address] 04/08/2024 Michael Suárez Other chronic pain G89.29 and Low back pain, unspecified M54.50 [address] [facility] [address] [place] [address] 07/07/2024 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 ; Spondylolysis, lumbosacral region M43.07 ; Opioid dependence, uncomplicated F11.20 and Other chronic pain G89.29 [address] [facility] [address] [place] [address] 09/03/2024 Michael Suárez Unilateral primary osteoarthritis, right knee M17.11 ; Low back pain, unspecified M54.50 ; Unilateral primary osteoarthritis, left knee M17.12 ; Pain in left hip M25.552 ; Pain in right hip M25.551 and Other chronic pain G89.29 Assessments Encounter Date Diagnosis (ICD Code) Assessment Notes Treatment Notes Treatment Clinical Notes Section Notes 10/04/2023 Spondylolysis, lumbosacral region (ICD-10 - M43.07) 11/08/2023 Spondylolysis, lumbosacral region (ICD-10 - M43.07) 12/04/2023 Other chronic pain (ICD-10 - G89.29) Rafa returns to clinic today for a follow-up evaluation regarding his acute on chronic pain. I have reviewed the [facility] database and did not find any [...] his chronic pain. I have reviewed the [facility] database and did not find any [...] his chronic pain. I have reviewed the [facility] database and did not find any [...] his chronic pain. 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 I have reviewed the [facility] database and did not find any [...] with any questions, problems or concerns. 09/03/2024 Unilateral primary osteoarthritis, right knee (ICD-10 - M17.11) 09/03/2024 Low back pain, unspecified (ICD-10 - M54.50) 08/07/2024 Other chronic pain (ICD-10 - G89.29) 09/03/2024 Unilateral primary osteoarthritis, left knee (ICD-10 - M17.12) 01/03/2024 Low back pain, unspecified (ICD-10 - M54.50) 07/07/2024 Opioid dependence, uncomplicated (ICD-10 - F11.20) 03/11/2024 Low back pain, unspecified (ICD-10 - M54.50) 11/08/2023 Radiculopathy, lumbosacral region (ICD-10 - M54.17) 10/04/2023 Radiculopathy, lumbosacral region (ICD-10 - M54.17) 10/04/2023 Cervicalgia (ICD-10 - M54.2) 10/04/2023 Other chronic pain (ICD-10 - G89.29) Rafa Calabrese) returns to clinic today for a follow up evaluation regarding his chronic pain. I have reviewed the [facility] database and did not find any [...] medication. This treatment plan was reviewed with Vniod, and he was agreeable. I will continue [...] medications. Regarding medications, I have reviewed the [place] [facility] [employer] database and his most recent UDS, finding [...] with any questions, problems or concerns. 09/03/2024 Pain in left hip (ICD-10 - M25.552) 12/04/2023 FDC (current) use of opiate analgesic (ICD-10 - Z79.891) 09/03/2024 Pain in right hip (ICD-10 - M25.551) 11/08/2023 Other chronic pain (ICD-10 - G89.29) Rafa returns to clinic today for a follow up evaluation regarding his acute on chronic pain. I have reviewed the [place] [facility] [employer] database and did not find any inconsistencies. [...] with any questions, problems or concerns. 12/04/2023 Encounter for screening for other disorder (ICD-10 - Z13.89) As a component of this patient being on a long-term controlled-substanc e medication for chronic pain we performed screening [...] benzodiazepines and other drugs (prescribed or not). 09/03/2024 Other chronic pain (ICD-10 - G89.29) Vinod returns to clinic today for a follow-up evaluation regarding his chronic low back, neck, and bilateral knee pain. We discussed his current symptoms and medications. Regarding medications, I have reviewed the [place] [facility] [employer] database and his most recent OTS, finding [...] with any questions, problems or concerns. 10/04/2023 Other Tommy Hoover , am serving as a scribe to document services personally performed by Kash Valdez PA-C, based upon my observations and the provider's statements to me. All documentation has been reviewed by the aforementioned FIONA. Kash Hoover PA-C, attest that the above named individual [...] the decisions made by her. 01/03/2024 Other Erlin Hoover , am serving as a scribe to document services personally performed by Michael Suárez CNP, based upon my observations and the provider's statements to me. All documentation has been reviewed by the aforementioned TITLE CURATOR as well as Bakari Stringer MD, prior [...] performed and the decisions made by them. 12/04/2023 Other I, Mary Sanchez, am serving as a scribe to document services personally performed by Michael Suárez CNP, based upon my observations and the provider's statements to me. All documentation has been reviewed by the aforementioned TITLE CURATOR as well as Karlo Ortiz MD, prior [...] documentation has been reviewed by the aforementioned TITLE CURATOR as well as Karlo Ortiz MD, prior [...] documentation has been reviewed by the aforementioned TITLE CURATOR as well as Karlo Ortiz MD, prior [...] documentation has been reviewed by the aforementioned TITLE CURATOR as well as Karlo Ortiz MD, prior [...] performed and the decisions made by them. 09/03/2024 Other Kiko, Ann yee, am serving as a scribe to document services personally performed by Michael Suárez CNP, based upon my observations and the provider's statements to me. All documentation has been reviewed by the aforementioned TITLE CURATOR. IMichael CNP, attest that the above named individual is acting in scribe capacity, has observed my performance of the services and has documented them in accordance with my direction. The documentation recorded by the scribe accurately reflects the service I personally performed and the decisions made during the clinic visit. 07/07/2024 Other Kiko, Sebastian Zacarias, am serving as a scribe to document services personally performed by Michael Suárez NP, based upon my observations and the provider's statements to me. All documentation has been reviewed by the aforementioned [employer] ASS[employer] COUNSELOR. Michael Hoover NP, attest that the above named individual is acting in scribe capacity, has observed my performance of the services and has documented them in accordance with my direction. The documentation recorded by the scribe accurately reflects the service I personally performed and the decisions made during the clinic visit. Plan Of Treatment No Information Insurance Providers Payer Name Payer Address Payer Phone Subscriber Number Group Number Insured Name Patient Relationship to Insured Coverage Start Date Coverage End Date [facility] Ad[employer] [address] [address] [place] [address] [id number] Rafa Hickey Self - patient is [...]
== END 2024-09-16 09:41 | disposition home or self-care (01) ==
LOC: INJ CL 09:40
PROVIDERS: PCP Family Medicine; Visit Provider Family Medicine
DX: M54.16 Radiculopathy, lumbar region (principal); M51.369 Other intervertebral disc degeneration, lumbar region without mention of lumbar back pain or lower extremity pain
CPT/HCPCS: 62323; J0702; Q9966

== ENCOUNTER 2024-11-23 18:31 | Emergency (ER) | payer MEDICARE, SELFPAY ==
[2024-11-23 18:33] VITALS: BP 175/118; PULSE 73; RESP 18; TEMP 36.5; O2SAT 98; BMI 29.5
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
--- OUTSIDE RECORDS SUMMARY | 2024-11-23 18:35 | XMS_ITS | Data Portability ---
Author Organization [facility] Address [address] [place] [address] Care Team Providers Care Software Tester Name Role Phone AMANDEEP TODD Primary Care Provider [phone] Assessment Encounter Date Assessment Date Assessment LastModified [...] None recorded. Imaging None recorded. Medication Orders finasteride 5 mg tablet 2022 023 [facility] [address], [address], [place], [address], 15:52:06 tamsulosin 0.4 mg capsule 2022 023 [facility] [address], [address], [place], [address], 15:52:06 tamsulosin 0.4 mg capsule 2022 023 [facility] [address], [address], [place], [address], 3 10:23:19 finasteride 5 mg tablet 2022 023 [facility] [address], [address], [place], [address], 3 10:23:19 Patient TargetsNo targets recorded. Patient InstructionsNo instructions [...] Time 3 Bladder Scan completed Asuncion Batres [facility] 12/27/2022 10:13:26 2 Bladder Scan completed Gris Dwyer [facility] 05/31/2022 11:23:55 9 colonoscopy completed Gris Dwyer [facility] 05/31/2022 11:23:05 Imaging Results Imaging [...] Available Not Available finasteride 5 mg tablet TAKE ONE TABLET BY MOUTH ONCE DAILY active Not Available Not Available No t Available spironolact one 50 mg tablet TAKE ONE [...] Updated DateTime 05/31/2022 187.96 cm 41.2 kg/m2 896405.15 g Gris Dwyer [facility] 05/31/2022 11:22:11 Date Recorded Body height Body mass index (BMI) Body weight Provider Name and Address Organization Details Last Updated DateTime 12/27/2022 187.96 cm 41.2 kg/m2 397578.15 g Asuncion Batres [facility] 12/27/2022 10:15:31 Date Recorded Body height Body mass index (BMI) Body weight Provider Name and Address Organization Details Last Updated DateTime 05/30/2023 187.96 cm 41.2 kg/m2 343800.15 g Dhaval Cruz MD [address] [place] [address],[address], [address] 05/30/2023 15:20:19 Social History Question Answer Notes LastModified by Organizat ion Details LastModified Time Tobacco Smoking Status Former Smoker Gris Santanasugar pepe [facility] 05/31/2022 11:22:52 What Is Your Level Of [...] available 2021 11:22:43 Medical History Condition Response Diabetes Y High Blood Pressure Y High Cholesterol Y Immunizations Vaccine Type Date Status Note Provider Nam e and Address Organization Details Recorded Time Tdap 06/24/2010 completed Dhaval Cruz MD [address] [place] [address],[address], [place], [address], [facility] 05/30/2023 15:20:28 Tdap 07/19/2016 completed Dhaval Cruz MD [address] [place] [address],[address], [place], [address], [facility] 05/30/2023 15:20:28 Hep A-Hep B 12/28/2010 completed Dhaval Cruz MD [address] [place] [address],[address], [place], [address], [facility] 05/30/2023 15:20:28 Hep A-Hep B 06/24/2010 completed Dhaval Cruz MD [address] [place] [address],[address] [place] [address], [address], [facility] 05/30/2023 15:20:28 Hep A-Hep B 07/25/2010 completed Dhaval Cruz MD [address] [place] [address],[address], [place], [address], [facility] 05/30/2023 15:20:28 zoster recombinant 10/23/2022 completed Oumou pepe [facility] 07/25/2023 13:14:35 zoster recombinant 12/25/2022 completed Oumou pepe [facility] 07/25/2023 13:14:35 Past Encounters Encounter ID Performer Location Encounter Start Date Encounter Closed Date Diagnosis/Indication Diagnosis SNOMED-CT Code Diagnosis ICD10 Code Diagnosis Note [id number] Dhaval Cruz MD [facility] [address] [place] [address] 05/31/2022 11:07:00 06/05/2022 15:44:25 Increased frequency of urination 602017094 R35.0 - UroFlow at next visit - PVR today 0 ml - AUA SS: 19 (QOL 3) -We will continue current course of action with combinatio n therapy. Follow-up in 1 year Nocturia 445079344 R35.1 - As above Urgent cheyanne carlyle to urinate 50381198 R39.15 - As above [id number] Dhaval Cruz MD [facility] [address] [place] [address] 12/27/2022 10:02:20 12/29/2022 11:02:58 Increased frequency of urination 982470335 R35.0 - Obtain UroCuff - PVR today 4 ml - AUA SS: 28 (2) [Previous visit: 19 (QOL 3)] - Restart combinatio n therapy, follow up in 3 months with UroCuff Nocturia 508674204 R35.1 - As above Urgent cheyanne carlyle to urinate 43698881 R39.15 - As above [id number] Dhaval Cruz MD [facility] [address] [place] [address] 03/29/2023 12:04:24 04/04/2023 09:06:12 [id number] Marisol Donaldson [facility] [address] [place] [address] 04/05/2023 09:56:42 04/13/2023 07:37:49 [id number] Dhaval Cruz MD [facility] [address] [place] [address] 05/30/2023 15:13:21 06/05/2023 12:26:38 Increased frequency of urination 732129976 R35.0 - Unable to complete UroCuff - PVR [previous visit: 4 ml] - AUA SS: 9 (QOL 3) [Previous visit: 28 (2)] -Continue combinatio n therapy Nocturia 071116642 R35.1 - As above Urgent cheyanne carlyle to urinate 00447759 R39.15 - As above Health Concerns Section Related Observation LastModified by Organization Detai ls LastModified Time None Recorded Concern Status LastModified by Organization Details LastModified Time None Recorded Advance Directives Directive None Recorded Payers Encounter Date Sequence Insurance Name Policy Number Policy Dobson Covered Member ID Dobson Member ID Guarantor Name 05/31/2022 1 [employer] (MEDICARE REPLACEMENT/A DVANTAGE - PPO) Rafa Hickey Jr [id number] Rafa Hickey 12/27/2022 1 [employer] (MEDICARE REPLACEMENT/A DVANTAGE - PPO) Rafa Hickey Jr [id number] Rafa Hickey 03/29/2023 1 [employer] (MEDICARE REPLACEMENT/A DVANTAGE - PPO) Rafa Hickey Jr [id number] Rafa Hickye 04/05/2023 1 [employer] (MEDICARE REPLACEMENT/A DVANTAGE - PPO) Rafa Hickey Jr [id number] Rafa Hickey 05/30/2023 1 [employer] (MEDICARE REPLACEMENT/A DVANTAGE - PPO) Rafa Hickey Jr [id number] Rafa Hickey Notes Date Note Type Note Provider Name and Address Organization Details Recorded Time 05/31/2022 text/html 61 year old male with history of urinary frequency, [...] who provides some history. Dhaval Cruz MD [address] [place] [address],[address], [address], [facility] 05/31/2022 13:15:14 12/27/2022 text/html 62 year old male with history of urinary frequency, urgency, and nocturia. Patient started on combination therapy tamsulosin and finasteride at last visit. PVR at that time noted to be 132 ml. Today he reports improved emptying and flow with combination therapy. He has overall feels like his urination is improving. Occasionally still has to push seen today with his who provides some history. 12/27/2022:Here for f/u urinary frequency, urgency, and nocturia. Maintained on combination therapy tamsulosin and finasteride. Today reports significant return of irritative symptoms but this has been since he self-discontinued his medications. hDaval Cruz MD [address] [place] [address],[address], [place], [address], [facility] 12/27/2022 13:46:55 05/30/2023 text/html 62 year old male with history of urinary frequency, urgency, and nocturia. Patient started on combination therapy tamsulosin and finasteride at last visit. PVR at that time noted to be 132 ml. Today he reports improved emptying and flow with combination therapy. He has overall feels like his urination is improving. Occasionally still has to push seen today with his who provides some history. 12/27/2022:Here for f/u urinary frequency, urgency, and nocturia. Maintained on combination therapy tamsulosin and finasteride. Today reports significant return of irritative symptoms but this has been since he self-discontinued his medications. 04/26/2023:Here for f/u urinary frequency, urgency, and nocturia. He was unable to complete UroCuff. He was therefore scheduled for urodynamics but it does not appear that he made this appointment. 05/30/2023:Here for f/u urinary frequency, urgency, and nocturia. He was unable to complete UroCuff. Does report significant improvement since returning back on combination therapy. Seen today with his provides some of the history. Dhaval Cruz MD [address] [facility],[address], [place], [address], [place] [facility] 05/30/2023 15:53:07
--- OUTSIDE RECORDS SUMMARY | 2024-11-23 19:07 | XMS_ITS | Encounter Summary ---
Author Organization [facility] Address [address] [place] [address]. [place] [address] Care Team Providers Care Hot Air Furnace Installer Repairer Name Role Phone Maya Goyal MD Primary Care Provider Unavailabl Maya Stallworth MD Unavailable Unavailable Mehdi Sen MD Unavailable [phone] Erlin Delcid MD Unavailable [phone] Elicia Bedoya [facility] Unavailable Kae Whipple [facility] Unavailable [phone] Mehdi Bass DPM Unavailable [phone] Kae Whipple [facility] Unavailable Maya Goyal MD Unavailable Unavailable No Ref-Primary, Physician Primary Care Provider Mehdi Bass DPM Unavailable [phone] [facility] Unavailable Encounter Details Date Type Department Care Team (Late st Contact Info) Description 11/01/2020 [facility] [address] [place] [address] Erlin Delcid MD [address] [facility] [address] [place] [place], [place] [id number] Social History Tobacco Use Types Packs/Day Years [...] Sex Assigned at Male 09/17/2018 5:00 PM BRICK AND BLOCKER AID LABOR Legal Sex Male 3:11 AM BRICK AND BLOCKER AID LABOR Gender Identity Male 09/17/2018 5:00 PM BRICK AND BLOCKER AID LABOR Sexual Orientation Straight 09/17/2018 5: 00 PM BRICK AND BLOCKER AID LABOR COVID-19 Exposure Response Date Recorded In the last month, have you been in contact with someone who was confirmed or suspected to have Coronavirus / COVID-19? No / Unsure 11/04/2020 1:14 PM BRICK AND BLOCKER AID LABOR documented as of this encounter Plan of Treatment Not on file documented as of this encounter Visit Diagnoses Not on filedocumented in this encounter Additional Health Concerns Assessment Noted Time PHQ-9 Depression Total Score: 10 020 8:55 AM CDT documented as of this encounter Care Teams Hot Air Furnace Installer Repairer Relationship Specialty Start Date End Date Maya Goyal MD PCP - General 05/03/04 11/14/22 No Ref-Primary, Physician PCP - General 11/15/22 Maya Goyal MD Assigned PCP 06/27/12 10/17/23 Mehdi Sen MD [address] [place], [place] [id number] Assigned Musculoskeletal Provider 07/16/20 12/18/20 Erlin Delcid MD [address] [facility] [address] [id number] Assigned Surgical Provider 09/12/20 Elicia Bedoya, [facility] [address] [place] [address] [address] [place] [address] Pharmacist Pharmacist 11/09/20 12/06/20 Kae Whipple [facility] [address] [place] [address] Pharmacist Pharmacist 11/30/20 12/06/20 Mehdi Bass DPM [address] [place] [address] [place] [address] Assigned Musculoskeletal Provider 08/14/21 10/27/22 Kae Whipple [facility] [address] [place] [address] Assigned MTM Pharmacist 03/18/22 Maya Goyal MD Assigned Pain Medication Provider 10/02/22 03/23/23 Mehdi Bass DPM [address] [place] [address] Assigned Surgical Provider 10/28/22 [facility] [address] [place] [address] Assigned PCP 10/18/23 documented as of this encounter
--- OUTSIDE RECORDS SUMMARY | 2024-11-23 19:07 | XMS_ITS | Encounter Summary ---
Author Organization [facility] Address [address] [place] [address]. [place] [address] Care Team Providers Care Digitizer Operator Name Role Phone Maya Goyal MD Primary Care Provider Unavailabl Maya Stallworth MD Unavailable Unavailable Mehdi Sen MD Unavailable [phone] Erlin Delcid MD Unavailable Elicia Bedoya [facility] Unavailable Kae Whipple [facility] Unavailable Mehdi BassM Unavailable [phone] Kae Whipple [facility] Unavailable Maya Goyal MD Unavailable Unavailable No Ref-Primary, Physician Primary Care Provider Mehdi Bass DPM Unavailable [phone] [facility] Unavailable Reason for Visit * Reason Comments Medication Refill Encounter Details Date Type Department Care Team (Late st Contact Info) Description 10/25/2020 [facility] [address] [place] [address] Maya Goyal MD [place] IN [place] 08/23/2024 Medication Refill Social History Tobacco Use Types [...] Assigned at Male 09/17/2018 5:00 PM MARINE ENGINE MACHINIST APPRENTICE Legal Sex Male 3:11 AM MARINE ENGINE MACHINIST APPRENTICE Gender Identity Male 09/17/2018 5:00 PM MARINE ENGINE MACHINIST APPRENTICE Sexual Orientation Straight 09/17/2018 5: 00 PM MARINE ENGINE MACHINIST APPRENTICE COVID-19 Exposure Response Date Recorded In the last month, have you been in contact with someone who was confirmed or suspected to have Coronavirus / COVID-19? No / Unsure 10/21/2020 10:08 AM MARINE ENGINE MACHINIST APPRENTICE documented as of this encounter Miscellaneous Notes * Telephone Encounter - Susan Kohler RN - 10/26/2020 11:53 AM MARINE ENGINE MACHINIST APPRENTICE Patient has refills remaining with requesting pharmacy. Susan Cancino - Registered Nurse 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 chronic kidney disease, without long-term current use of insulin (H) documented in this encounter Additional Health Concerns Assessment Noted Time PHQ-9 Depression Total Score: 10 020 8:55 AM CDT documented as of this encounter Care Teams Digitizer Operator Relationship Specialty Start Date End Date Maya Goyal MD PCP - General 05/03/04 11/14/22 No Ref-Primary, Physician PCP - General 11/15/22 Maya Goyal MD Assigned PCP 06/27/12 10/17/23 Mehdi Sen MD [address] [place] [address] Assigned Musculoskeletal Provider 07/16/20 12/18/20 Erlin Delcid MD [address] [place] [place] [address] Assigned Surgical Provider 09/12/20 Elicia Bedoya, [facility] [address] [facility] [address] [place] [address] Pharmacist Pharmacist 11/09/20 12/06/20 Kae Whipple, [facility] [address] [place] [address] Pharmacist Pharmacist 11/30/20 12/06/20 Mehdi Bass DPM [id number] [place] [address] Assigned Musculoskeletal Provider 08/14/21 10/27/22 Kae Whipple [facility] [address] [place] [address] Assigned MTM Pharmacist 03/18/22 Maya Goyal MD Assigned Pain Medication Provider 10/02/22 03/23/23 Mehdi Bass DPM [address] [place] [address] [place] [address] Assigned Surgical Provider 10/28/22 [facility] [address] [place] [address] Assigned PCP 10/18/23 documented as of this encounter
--- OUTSIDE RECORDS SUMMARY | 2024-11-23 19:07 | XMS_ITS ---
Author Organization [facility] Address [address] [place] [address] [address] [place] [address] Care Team Providers Care Interventional Cardiologist Name Role Phone Caryl Shi Primary Care Provider UnavailKarlo Wilkins Unavailable [phone] Catia Swift MD Unavailable Unavailable Michael Suárez Unavailable [phone] Allergies No Known Allergies REASON FOR VISIT Low back pain, Bilateral knee pain Medications Medication SIG (Take, Route, Frequency, Duration) Notes Start Date End Date Status tiZANidine HCl 4 MG 1 tablet as needed Orally once a day at bedtime for 30 days Active UltiCare Short Pen [place] 31G X 8 MM DIRECTED for 30 Days Active Furosemide 20 MG Oral for 90 Days Active Meloxicam 7.5 MG 1 tablet Orally Once a day for 30 days Active Methocarbamol 750 MG 1 tablet Orally(muscle relaxant for daytime use, Do not take with Tizanidine- only take 1 tablet at a time) Twice a day for 30 days Active Spironolactone 50 MG Oral for 30 Days Active Tamsulosin HCl 0.4 MG Oral for 90 Days Active traZODone HCl 100 MG Oral for 90 Days Active Finasteride 5 MG TAKE ONE TABLET BY MOUTH ONCE DAILY Oral for 30 Days Active DULoxetine HCl 60 MG Oral for 30 Days Active Lantus SoloStar 100 UNIT/ML Subcutaneous for 17 Days Active oxyCODONE HCl 5 MG 1 tablet as needed Orally every 8-12 hours for 30 days ok to fill 11/08/24 Low back pain, unspecified M54.50, G89.29 PRINTED Active Carvedilol 25 MG Oral for 90 Days Active amLODIPine Besylate 5 MG Oral for 90 Days Active Social History Tobacco Use: Social History Observation Description Date Details (start date - stop date) Unknown Tobacco Use/Smoking: Question Answer Notes Are you a Uses tobacco in other forms Additional Findings: Tobacco User e-Cigarette Vital Signs Blood pressure systolic 122 mm Hg 11/06/19 25 Blood pressure diastolic 78 mm Hg 025 Height 74 in 11/06/2024 Weight 312 lbs 11/06/2024 BMI 40.05 kg/m2 11/06/2024 Encounters Encounter Location Date Provider Diagnosis [facility] [address] [facility] [address] [place] [address] 11/06/2024 Michael Suárez Unilateral primary osteoarthritis, right knee M17.11 ; Unilateral primary osteoarthritis, left knee M17.12 ; Low back pain, unspecified M54.50 ; Pain in left hip M25.552 ; Pain in right hip M25.551 and Other chronic pain G89.29 Assessments Encounter Date Diagnosis (ICD Code) Assessment Notes Treatment Notes Treatment Clinical Notes Section Notes 11/06/2024 Unilateral primary osteoarthritis, right knee (ICD-10 - M17.11) 11/06/2024 Unilateral primary osteoarthritis, left knee (ICD-10 - M17.12) 11/06/2024 Low back pain, unspecified (ICD-10 - M54.50) 11/06/2024 Pain in left hip (ICD-10 - M25.552) 11/06/2024 Pain in right hip (ICD-10 - M25.551) 11/06/2024 Other chronic pain (ICD-10 - G89.29) Vinod returns to clinic today for a follow-up evaluation regarding his chronic low back, neck, and bilateral knee pain. We discussed his current symptoms and medications. Regarding medications, I have reviewed the [facility] database and did not find any inconsistencies. Therefore, I have refilled his oxycodone at the current dose of 5MG prn as he continues to note moderate relief without significant adverse side effects. This treatment plan was reviewed with Vinod, and he was agreeable. He will return in two months for further evaluation or sooner if needed. I will continue to monitor his progress, adjusting his treatment plan as necessary. Plan: 1. Refill Oxycodone 5MG prn - printed 2. Follow-up in two months Discharge instructions reviewed [...] call with any questions, problems or concerns. 11/06/2024 Other Italo Hoover in, am serving as a scribe to document services personally performed by Michael Suárez CNP, based upon my observations and the provider's statements to me. All documentation has been reviewed by the aforementioned ROBOTIC WELDER as well as Karlo Ortiz MD, prior [...] medications. Regarding medications, I have reviewed the [facility] database and did not find any inconsistencies. Therefore, I have refilled his oxycodone at the current dose of 5MG prn as he continues to note moderate relief without significant adverse side effects. This treatment plan was reviewed with Vinod, and he was agreeable. He will return in two months for further evaluation or sooner if needed. I will continue to monitor his progress, adjusting his treatment plan as necessary. Plan: 1. Refill Oxycodone 5MG prn - printed 2. Follow-up in two months Discharge instructions reviewed [...] with any questions, problems or concerns. Other Italo Hoover a m serving as a scribe to document services personally performed by Michael Suárez CNP, based upon my observations and the provider's statements to me. All documentation has been reviewed by the aforementioned ROBOTIC WELDER as well as Karlo Ortiz MD, prior [...] * Rafa RIVAS DOB: (64 yo M)Acc No.[id number]:11/06/2024 Progress Notes Patient: Rafa GENTILE Provider: Gordon Suárez NP :1960 A ge:64 Y S ex:Male Date:11/06/2024 Phone: Address:[address] [place] [address] [facility], [facility] Pcp:Caryl Shi Subjective: * Chief Complaints: * L ow back painBilateral knee pain * HPI: C linic visit: Rafa Calabrese) is a 64 year old male who returns to clinic today for a follow up evaluation regarding his chronic low back, neck, and knee pain. Interval History: Vinod reports that his pain has remained persistent and bothersome in the interim. He notes he plans to schedule left and right knee replacements in the near future. Procedure History : Several lumbar injections at [facility] have not been helpful. He also completed cervical injections at [facility]. Genicular RFAs have been completed in the past without relief - 01/01/2024 Lumbar injection ([facility]) : good relief - 11/21/2022 L5-S1 [facility] : 60-70% relief - 12/07/2022 bilateral knee injections (no relief) - 04/13/2023 Right knee injection : 60% relief, spiked blood pressure Previous Cons[facility] : [facility] [...] falls with injury in the past year? Y es, P celeste of Care: D ocumented. D epression Screening: PHQ-9 L ittle interest or pleasure in doing things N ot at all, F eeling down, depressed, or hopeless S everal days, T rouble falling or staying asleep, or sleeping too much S everal days, F eeling tired or having little energy S everal days, P oor appetite or overeating N ot [...] N ot at all, T otal Score 4 , I nterpretation M inimal Depression. I ntervention D epression Screening Findings N egative, N arnie of the standardized tool used for adult depression screening: P atient Health Questionnaire (PHQ-9). * ROS: G eneral/Constitutional: Chills/Fevers N o. F atigue N o. W eight gain?No. W eight loss N o. E ndocrine: Dizziness Y es. E xcessive sweating N o. W eakness N o. R espiratory: Chest pain Y es. C ough N o. S hortness of [...] W ork Status: Keisha roque of Employment: Reachable. 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 Employment Status: not working. * Medications: T akingtiZANidine HCl 4 MG Tablet 1 tablet as needed Orally once a day at bedtime Meloxicam 7.5 MG Tablet 1 tablet Orally Once a day Methocarbamol 750 MG Tablet 1 tablet Orally(muscle relaxant for daytime use, Do not take with Tizanidine- only take 1 tablet at a time) Twice a day UltiCare Short Pen Chester 31G X 8 MM Miscellaneous DIRECTED Lantus [...] Tablet Oral Furosemide 20 MG Tablet Oral oxyCODONE HCl 5 MG Tablet 1 tablet as needed Orally every 8-12 hours , Notes to Pharmacist: Low back pain, unspecified M54.50, G89.29 PRINTEDMedication List reviewed and reconciled with the patientTaking tiZANidine HCl 4 MG Tablet 1 tablet as needed Orally once a day at bedtime Taking Meloxicam 7.5 MG Tablet 1 tablet Orally Once a day Taking Methocarbamol 750 MG Tablet 1 tablet Orally(muscle relaxant for daytime use, Do not take with Tizanidine- only take 1 tablet at a time) Twice a day Taking UltiCare Short Pen Chester 31G X 8 MM Miscellaneous DIRECTED Taking [...] Taking Furosemide 20 MG Tablet Oral Taking oxyCODONE HCl 5 MG Tablet 1 tablet as needed Orally every 8-12 hours , Notes to Pharmacist: Low back pain, unspecified M54.50, G89.29 PRINTEDMedication List reviewed and reconciled with the patient * Allergies: N .K.D.A.no[Allergies Verified] Objective: * Vitals: H t: 74 in, Wt:312lbs, BMI:40.05, BP:122/78mm Hg, VAS-Today:61-10, VAS-Av 1- 10, VAS-High: 10 [...] osteoarthritis, right knee - M17.11 2 . U nilateral primary osteoarthritis, left knee - M17.12 3 . P ain in left hip - M25.552 ? 4 . L ow back pain, unspecified - M54.50 (Primary) 5 . P ain in right hip - M25.551 6 . O ther chronic pain - G89.29 Plan: * Treatment: 2. O thers Notes: IMarylinbenrobert Ramosein, am serving as a scribe to document [...] personally performed and the decisions made by them.? * Procedure Codes: * Preventive Medicine: iSpine Inventory Forms: L ow Back Oswestry O swestry Score (0-100) 5 6,?OSCAR Interpretation 4 0-59 (Severe Disability). Counseling: B AK Care goal follow-up plan: A rodger Normal BMI Follow-up L ifestyle education regarding diet Patient declined. * Follow Up: 2 Months * Billing Information: * Visit Code: 62960 Established Patient level 3. * Procedure Codes: * HROOM FOOD SERVICE SUPERVISOR Sign off status: Completed true * Provider: Gordon Suárez NP Date: 0 11/06/2024 Generated for Andi fields/Mona/Jessica on: 0 11/23/2024 07:07 PM LUNCHROOM FOOD SERVICE SUPERVISOR History and Physical Notes * HPI (History [...] some way: Not at all Total Score: 4 Interpretation: Minimal Depression Intervention Depression Screening Findings: [...] remained persistent and bothersome in the interim. He notes he plans to schedule left and right knee replacements in the near future. Procedure History : Several lumbar injections at [facility] have not been helpful. He also completed cervical injections at [facility]. Genicular RFAs have been completed in the past without relief - 01/01/2024 Lumbar injection ([facility]) : good relief - 11/21/2022 L5-S1 [facility] : 60-70% relief - 12/07/2022 bilateral knee injections (no relief) - 04/13/2023 Right knee injection : 60% relief, spiked blood pressure Previous Cons[facility] : [facility] [...]
--- OUTSIDE RECORDS SUMMARY | 2024-11-23 19:07 | XMS_ITS | Encounter Summary ---
Author Organization [place] Address [address] [place] [address]. [place] [address] Care Team Providers Care College Director Name Role Phone Maya Goyal MD Primary Care Provider UnavailMaya Vazquez MD Unavailable Unavailable Erlin Delcid MD Unavailable [phone] Mehdi Bass DPM Unavailable [phone] SarabjitKae chew [facility] Unavailable [phone] Maya Goyal MD Unavailable Unavailable No Ref-Primary, Physician Primary Care Provider Mehdi Bass DPM Unavailable [phone] [facility] Unavailable Encounter Details Date Type Department Care [...] Sex Assigned at Male 09/17/2018 5:00 PM FACILITIES DIRECTOR Legal Sex Male 3:11 AM FACILITIES DIRECTOR Gender Identity Male 09/17/2018 5:00 PM FACILITIES DIRECTOR Sexual Orientation Straight 09/17/2018 5: 00 PM FACILITIES DIRECTOR COVID-19 Exposure Response Date Recorded In [...] documented as of this encounter Care Teams College Director Relationship Specialty Start Date End Date Maya Goyal MD PCP - General 05/03/04 11/14/22 No Ref-Primary, Physician PCP - General 11/15/22 Maya Goyal MD Assigned PCP 06/27/12 10/17/23 Erlin Delcid MD [address] [address] Assigned Surgical Provider 09/12/20 Mehdi Bass [place]PM [address] [facility] [address] [place] [address] Assigned Musculoskeletal Provider 08/14/21 10/27/22 Kae Whipple [facility] [address] [place] [address] Assigned MTM Pharmacist 03/18/22 Maya Goyal MD Assigned Pain Medication Provider 10/02/22 03/23/23 Mehdi Bass DPM [address] [facility] [address] [place] [address] Assigned Surgical Provider 10/28/22 [facility] [place], [address] [address] Assigned PCP 10/18/23 documented as of this encounter
--- OUTSIDE RECORDS SUMMARY | 2024-11-23 19:07 | XMS_ITS | Encounter Summary ---
Author Organization [place] Address [address] [place] [address]. [place] [address] Care Team Providers Care Channel Marketing Program Manager Name Role Phone Maya Goyal MD Primary Care Provider UnavailMaya Vazquez MD Unavailable Unavailable Erlin Delcid MD Unavailable [phone] Mehdi Bass DPM Unavailable [phone] Kae Whipple [facility] Unavailable Maya Goyal MD Unavailable Unavailable No Ref-Primary, Physician Primary Care Provider Mehdi Bass DPM Unavailable [phone] [facility] Unavailable Reason for Visit * Reason Comments Medication Refill Encounter Details Date Type Department Care Team (Late st Contact Info) Description 07/11/2021 [facility] [address] [place] [phone] Maya Goyal MD INACTIVE IN [place] 08/23/2024 Medication Refill Social History Tobacco Use [...] Sex Assigned at Male 09/17/2018 5:00 PM VP OF PRODUCT Legal Sex Male 3:11 AM VP OF PRODUCT Gender Identity Male 09/17/2018 5:00 PM VP OF PRODUCT Sexual Orientation Straight 09/17/2018 5: 00 PM VP OF PRODUCT documented as of this encounter Miscellaneous Notes * Telephone Encounter - Rukhsana Yo RN - 07/13/2021 12:52 PM CDT Prescription approved per [facility] Refill Protocol. documented in this [...] documented as of this encounter Care Teams Channel Marketing Program Manager Relationship Specialty Start Date End Date Maya Goyal MD PCP - General 05/03/04 11/14/22 No Ref-Primary, Physician PCP - General 11/15/22 Maya Goyal MD Assigned PCP 06/27/12 10/17/23 Erlin Delcid MD [address] [address] Assigned Surgical Provider 09/12/20 Meh[place] DPM [address] [facility] [address] [place], [place] [address] Assigned Musculoskeletal Provider 08/14/21 10/27/22 Kae Whipple [facility] [address] [place], [place] [address] Assigned MTM Pharmacist 03/18/22 Maya Goyal MD Assigned Pain Medication Provider 10/02/22 03/23/23 Mehdi Bass DPM [address] [facility] [address] [place], [place] [address] Assigned Surgical Provider 10/28/[address] [address]130[address] Assigned PCP 10/18/23 documented as of this encounter
--- OUTSIDE RECORDS SUMMARY | 2024-11-23 19:07 | XMS_ITS | Encounter Summary ---
Author Organization [place] Address [address] [place] [address]. [place] [address] Care Team Providers Care Heavy Equipment Supervisor Name Role Phone Maya Goyal MD Primary Care Provider Unavailabl Maya Stallworth MD Unavailable Unavailable Mehdi Sen MD Unavailable [phone] Erlin Delcid MD Unavailable [phone] Elicia Bedoya [facility] Unavailable [phone] Kae Whipple [facility] Unavailable [phone] Mehdi Bass DPM Unavailable [phone] Kae Whipple [facility] Unavailable Maya Goyal MD Unavailable Unavailable No Ref-Primary, Physician Primary Care Provider Mehdi Bass DPM Unavailable [phone] [facility] Unavailable Reason for Visit * Reason Onset Date Comments Procedure 03/18/2019 Lumbar Epidural injection Encounter Details Date Type Department Care Team (Late st Contact Info) Description 03/18/2019 [facility] [place] [address] [place] [address] [facility] (Lumbar Epidural injection ) Social History [...] Sex Assigned at Male 09/17/2018 5:00 PM LABOR TRAINER Legal Sex Male 3:11 AM LABOR TRAINER Gender Identity Male 09/17/2018 5:00 PM LABOR TRAINER Sexual Orientation Straight 09/17/2018 5: 00 PM LABOR TRAINER documented as of this encounter Miscellaneous Notes * Telephone Encounter - Giovana Domínguez - 03/18/2019 3:41 PM CDT Pre-screening Questions for Radiology Injections: Injection to be done at which interventional clinic site? [facility] Instruct patient to arrive as directed prior to the scheduled appointment time: ?? [place]: 30 minutes before ?? [place]: 30 [...] Jordyn for review ?? IF SCHEDULING IN [place] AND NEEDS A PA, IT IS OKAY TO SCHEDULE. [place] HANDLES THEIR OWN PA'S AFTER THE PATIENT IS SCHEDULED. PLEASE SCHEDULE AT LEAST 1 WEEK OUT SO A PA CAN BE OBTAINED. Any chance of ? NO If YES, do NOT schedule and route to pool installer Is an plaster caster needed? No Patient has a drive home? (mandatory) YES: Informed Is patient taking any blood thinners (plavix, coumadin, jantoven, warfarin, heparin, pradaxa or dabigatran )? No If hold needed, do NOT schedule, route to pool installer Is patient taking any aspirin products (includes Excedrin and Fiorinal)? No ?? If more than 325mg/day do NOT schedule; route to pool installer ?? For CERVICAL procedures, hold all aspirin products for 6 days. ?? Tell pt that if aspirin product is not held for 6 days, the procedure WILL BE cancelled. Does the patient have a bleeding or clotting disorder? No ?? If YES, okay to schedule AND route to RN nurse pool For any patients with platelet count <100, [...] do NOT schedule and route to pool installer Are you able to get on and off an exam table with minimal or no assistance? Yes If NO, do NOT schedule and route to pool installer Are you able to roll over and lay on your stomach with minimal or no assistance? Yes If NO, do NOT schedule and route to pool installer Any allergies to contrast dye, iodine, shellfish, or numbing and steroid medications? No If YES, route to pool installer AND add allergy information to appointment notes [...] years? Yes ?? Was MRI done at [place]? Yes ?? If not, where was it done? N/A ?? If MRI was not done at [place], [facility] or [facility] Imaging do NOT schedule and route to [...] the patient have any questions? TIM Domínguez [facility] documented in this encounter Plan of Treatment Not on file documented as of this encounter Visit Diagnoses Not on filedocumented in this encounter Additional Health Concerns Infection Onset Date Last Indicated Resolved Time COVID-19 08/27/2020 08/27/2020 09/17/2020 11:4 0 PM LABOR TRAINER Assessment Noted Time PHQ-9 Depression Total Score: 4 09/23/20 18 2:33 PM LABOR TRAINER documented as of this encounter Care Teams Heavy Equipment Supervisor Relationship Specialty Start Date End Date Maya Goyal MD PCP - General 05/03/04 11/14/22 No Ref-Primary, Physician PCP - General 11/15/22 Maya Goyal MD Assigned PCP 06/27/12 10/17/23 Mehdi Sen MD [address] [place], [place] [address] Assigned Musculoskeletal Provider 07/16/20 12/18/20 Erlin Delcid MD [address] [address] Assigned Surgical Provider 09/12/20 Elicia Bedoya [facility] [address] [place] [address] [place] [address] Pharmacist Pharmacist 11/09/20 12/06/20 Kae Whipple [facility] [address] [place], [place] [address] Pharmacist Pharmacist 11/30/20 12/06/20 [place] [address] [address] [place] [address] Assigned Musculoskeletal Provider 08/14/21 10/27/22 Kae Whipple [facility] [address] [place] [address] Assigned MTM Pharmacist 03/18/22 Maya Goyal MD Assigned Pain Medication Provider 10/02/22 03/23/23 Mehdi Bass DPM [address] [facility] [address] [place] [address] Assigned Surgical Provider 10/28/[address] [address] Assigned PCP 10/18/23 documented as of this encounter
--- OUTSIDE RECORDS SUMMARY | 2024-11-23 19:07 | XMS_ITS | Encounter Summary ---
Author Organization [place] Address [address] [place] [address]. [place] [address] Care Team Providers Care Metallurgical Or Materials Technician Name Role Phone Maya Goyal MD Unavailable Unavailable No Ref-Primary, Physician Primary Care Provider [facility] Unavailable Reason for Visit * Reason Comments Medication Refill Encounter Details Date Type Department Care Team (Late st Contact Info) Description 10/03/2023 [address] [place] [address] Maya Goyal MD INACTIVE IN [place] 08/23/2024 Medication Refill Social History Tobacco Use [...] Sex Assigned at Male 09/17/2018 5:00 PM UTILITY ACCOUNTS DIRECTOR Legal Sex Male 3:11 AM UTILITY ACCOUNTS DIRECTOR Gender Identity Male 09/17/2018 5:00 PM UTILITY ACCOUNTS DIRECTOR Sexual Orientation Straight 09/17/2018 5: 00 PM UTILITY ACCOUNTS DIRECTOR documented as of this encounter Miscellaneous Notes * Telephone Encounter - Rukhsana Bowden RN - 10/03/2023 1:53 PM UTILITY ACCOUNTS DIRECTOR Pt going to [facility] now. Please deny med, will put notes in Rx. Catia Swift MD [address] [place] [address] ITY ACCOUNTS DIRECTOR documented in this encounter Plan of Treatment Not on file documented as of this encounter Visit Diagnoses Diagnosis Type 2 diabetes mellitus with stage 1 chronic kidney disease, without long-term current use of insulin (H) documented in this encounter Additional Health Concerns Assessment Noted Time PHQ-9 Depression Total Score: 10 05/16/ 021 2:58 PM CDT documented as of this encounter Care Teams Metallurgical Or Materials Technician Relationship Specialty Start Date End Date No Ref-Primary, Physician PCP - General 11/15/22 Maya Goyal MD Assigned PCP 06/27/12 10/17/23 [facility] - [address] [address] Assigned PCP 10/18/23 documented as of this encounter
--- OUTSIDE RECORDS SUMMARY | 2024-11-23 19:07 | XMS_ITS | Encounter Summary ---
Author Organization [place] Address [address] [place] [address]. [place] [address] Care Team Providers Care Mixer Lever Operator Name Role Phone Maya Goyal MD Primary Care Provider Unavailabl Maya Stallworth MD Unavailable Unavailable Mehdi Sen MD Unavailable [phone] Erlin Delcid MD Unavailable Elicia Bedoya [facility] Unavailable [phone] Kae Whipple [facility] Unavailable Mehdi BassM Unavailable [phone] Kae Whipple [facility] Unavailable Maya Goyal MD Unavailable Unavailable No Ref-Primary, Physician Primary Care Provider Mehdi Bass DPM Unavailable [phone] [facility] Unavailable Reason for Visit * Reason Comments Medication Refill Encounter Details Date Type Department Care Team (Late st Contact Info) Description 09/30/2020 [facility] [address] [place] [address] Maya Goyal MD INACTIVE IN [place] 08/23/2024 Medication Refill Social History Tobacco Use [...] Sex Assigned at Male 09/17/2018 5:00 PM AFRICANA STUDIES PROFESSOR Legal Sex Male 3:11 AM AFRICANA STUDIES PROFESSOR Gender Identity Male 09/17/2018 5:00 PM AFRICANA STUDIES PROFESSOR Sexual Orientation Straight 09/17/2018 5: 00 PM AFRICANA STUDIES PROFESSOR COVID-19 Exposure Response Date Recorded In the last month, have you been in contact with someone who was confirmed or suspected to have Coronavirus / COVID-19? Yes 09/07/2020 1:45 PM AFRICANA STUDIES PROFESSOR documented as of this encounter Miscellaneous Notes * Telephone Encounter - Eva Garcia LPN - 10/05/2020 11:58 AM AFRICANA STUDIES PROFESSOR Spoke with Patient he is aware and transferred to appionent desk Valery Garcia LPN CANA STUDIES PROFESSOR * Telephone Encounter - Basilia Felipe MD - 10/01/2020 4:04 PM AFRICANA STUDIES PROFESSOR Please have him schedule an apptsoon, as he is almost due for diabetic check and can recheck sodiumsame time CANA STUDIES PROFESSOR * Telephone Encounter - India Tapia RN - 10/01/2020 9:58 AM CST Routing refill request to provider for review/approval because: Labs out of range: Sodium Date Value Ref Range Status 05/24/2020 127 (L) 133 - 144 mmol/L Final India Tapia RN, BSN CANA STUDIES PROFESSOR documented in this encounter Plan of Treatment Not on file documented as of this encounter Visit Diagnoses Diagnosis Benign essential hypertension Essential hypertension, benign documented in this encounter Additional Health Concerns Assessment Noted Time PHQ-9 Depression Total Score: 10 020 8:55 AM CDT documented as of this encounter Care Teams Mixer Lever Operator Relationship Specialty Start Date End Date Maya Goyal MD PCP - General 05/03/04 11/14/22 No Ref-Primary, Physician PCP - General 11/15/22 Maya Goyal MD Assigned PCP 06/27/12 10/17/23 Mehdi Sen MD [address] [place] [address] Assigned Musculoskeletal Provider 07/16/20 12/18/20 Erlin Delcid MD 6363 [facility] [address] [place] [address] Assigned Surgical Provider 09/12/20 Elicia Bedoya [facility] [address] [facility] [address] [place] [address] Pharmacist Pharmacist 11/09/20 12/06/20 Kae Whipple [facility] [address] [place] [address] Pharmacist Pharmacist 11/30/20 12/06/[address] [place] [address] [facility] [address] [place] [address] Assigned Musculoskeletal Provider 08/14/21 10/27/22 Kae Whipple [facility] [address] [place] [address] Assigned MTM Pharmacist 03/18/22 Maya Goyal MD Assigned Pain Medication Provider 10/02/22 03/23/[address] [place] [address] [facility] [address] [place] [address] Assigned Surgical Provider 10/28/[address] [address] Assigned PCP 10/18/23 documented as of this encounter
--- OUTSIDE RECORDS SUMMARY | 2024-11-23 19:07 | XMS_ITS | Encounter Summary ---
Author Organization [place] Address [address] [place] [address]. [place] [address] Care Team Providers Care Filtration Plant Operator Name Role Phone Maya Goyal MD Primary Care Provider UnavailMaya Vazquez MD Unavailable Unavailable Erlin Delcid MD Unavailable Mehdi Bass DPM Unavailable [phone] Kae Whipple [facility] Unavailable [phone] Maya Goyal MD Unavailable Unavailable No Ref-Primary, Physician Primary Care Provider Mehdi Bass DPM Unavailable [phone] [facility] Unavailable Reason for Visit * Reason Comments Medication Refill Encounter Details Date Type Department Care Team (Late st Contact Info) Description 06/25/2021 [facility] [address] [place] [phone] Maya Goyal MD INACTIVE IN [place] 08/23/2024 Medication Refill Social History Tobacco Use [...] Sex Assigned at Male 09/17/2018 5:00 PM CREW ATTENDANT Legal Sex Male 3:11 AM CREW ATTENDANT Gender Identity Male 09/17/2018 5:00 PM CREW ATTENDANT Sexual Orientation Straight 09/17/2018 5: 00 PM CREW ATTENDANT documented as of this encounter Miscellaneous Notes * Telephone Encounter - Celestino Latham RN - 06/27/2021 2:46 PM CDT Prescription approved per [facility] Refill Protocol. documented in this encounter Plan of Treatment Not on file documented as of this encounter Visit Diagnoses Diagnosis Moderate episode of recurrent major depressive disorder (H)- Primary documented in this encounter Additional Health Concerns Assessment Noted Time PHQ-9 Depression Total Score: 10 021 2:58 PM CDT documented as of this encounter Care Teams Filtration Plant Operator Relationship Specialty Start Date End Date Maya Goyal MD PCP - General 05/03/04 11/14/22 No Ref-Primary, Physician PCP - General 11/15/22 Maya Goyal MD Assigned PCP 06/27/12 10/17/23 Erlin Delcid MD [address] [address] Assigned Surgical Provider 09/12/20 [place] [address] [facility] [address] [place] [address] Assigned Musculoskeletal Provider 08/14/21 10/27/22 Kae Whipple [facility] [address] [place] [address] Assigned MTM Pharmacist 03/18/22 Maya Goyal MD Assigned Pain Medication Provider 10/02/22 03/23/23 Mehdi Bass DPM [address] [facility] [address] [place], [place] [address] Assigned Surgical Provider 10/28/[address] [address] Assigned PCP 10/18/23 documented as of this encounter
--- OUTSIDE RECORDS SUMMARY | 2024-11-23 19:07 | XMS_ITS | Encounter Summary ---
Author Organization [place] Address [address] [place] [address]. [place] [address] Care Team Providers Care Geographic Information Systems Analyst Name Role Phone Maya Goyal MD Primary Care Provider Unavailabl Maya Stallworth MD Unavailable Unavailable Mehdi Sen MD Unavailable [phone] Erlin Delcid MD Unavailable Elicia Bedoya [facility] Unavailable [phone] Kae Whipple [facility] Unavailable Mehdi Bass DPM Unavailable [phone] Kae Whipple [facility] Unavailable [phone] Maya Goyal MD Unavailable Unavailable No Ref-Primary, Physician Primary Care Provider Mehdi Bass DPM Unavailable [phone] [facility] Unavailable Encounter Details Date Type Department Care Team (Late st Contact Info) Description 11/01/2020 [facility] [place] [address] [place] [address] Erlin Delcid MD [address] [place] [address] [place] [address] Social History Tobacco Use Types Packs/Day Years [...] Sex Assigned at Male 09/17/2018 5:00 PM CARDIAC CATH TECHNOLOGIST Legal Sex Male 3:11 AM CARDIAC CATH TECHNOLOGIST Gender Identity Male 09/17/2018 5:00 PM CARDIAC CATH TECHNOLOGIST Sexual Orientation Straight 09/17/2018 5: 00 PM CARDIAC CATH TECHNOLOGIST COVID-19 Exposure Response Date Recorded In the last month, have you been in contact with someone who was confirmed or suspected to have Coronavirus / COVID-19? No / Unsure 11/04/2020 1:14 PM CARDIAC CATH TECHNOLOGIST documented as of this encounter Plan of Treatment Not on file documented as of this encounter Visit Diagnoses Not on filedocumented in this encounter Additional Health Concerns Assessment Noted Time PHQ-9 Depression Total Score: 10 020 8:55 AM CDT documented as of this encounter Care Teams Geographic Information Systems Analyst Relationship Specialty Start Date End Date Maya Goyal MD PCP - General 05/03/04 11/14/22 No Ref-Primary, Physician PCP - General 11/15/22 Maya Goyal MD Assigned PCP 06/27/12 10/17/23 Mehdi Sen MD [address] [place], [place] [address] Assigned Musculoskeletal Provider 07/16/20 12/18/20 Erlin Delcid MD [address] [facility] [address] [address] Assigned Surgical Provider 09/12/20 Elicia Bedoya, [facility] [address] [place] [address] 8[address] [place], [place] [address] Pharmacist Pharmacist 11/09/20 12/06/20 Kae Whipple [facility] [address] [place] [address] Pharmacist Pharmacist 11/30/20 12/06/20 Mehdi Bass DPM [address] [place] [address] [place] [address] Assigned Musculoskeletal Provider 08/14/21 10/27/22 Kae Whipple [facility] [address] [place] [address] Assigned MTM Pharmacist 03/18/22 Maya Goyal MD Assigned Pain Medication Provider 10/02/22 03/23/23 Mehdi Bass DPM [address] [place] [address] Assigned Surgical Provider 10/28/22 [facility] [address] [place] [address] Assigned PCP 10/18/23 documented as of this encounter
--- OUTSIDE RECORDS SUMMARY | 2024-11-23 19:07 | XMS_ITS | Clinical Summary ---
Author Organization [facility] Address [address] [place] [address]. [place] [address] Care Team Providers Care Human Intelligence Name Role Phone No Ref-Primary, Physician Primary Care Provider [facility] Unavailable Allergies Active Allergy Reactions Criticality Noted Date Comments No Known Allergies 06/17/2002 Medications OMEPRAZOLE PO Take 20 mg by mouth 2 times daily (before meals) 1 tablet daily Active Multiple Vitamin (MULTIVITAMIN) per tablet Take 1 tablet by mouth daily. 100 tablet 12 03/02/20 11 Active fish oil-omega-3 fatty acids 1000 MG capsule Take 1 g by mouth daily Active STATIN NOT PRESCRIBED (INTENTIONAL)Maria Eugenia cations:Hyperlipi demia LDL goal <100 Please choose reason not prescribed, below 06/01/20 20 Active docusate sodium (COLACE) 100 MG capsule Take 1 capsule (100 mg) by mouth daily as needed for constipation 02/26/20 21 Active aspirin (ASA) 81 MG chewable tablet Take 81 mg by mouth daily Active gabapentin (NEURONTIN) 300 MG capsuleIndication s:Lumbar radiculopathy TAKE THREE CAPSULES BY MOUTH THREE TIMES A DAY 270 capsule 5 10/19/19 22 Active tamsulosin (FLOMAX) 0.4 MG capsuleIndication s:Slowing of urinary stream TAKE ONE CAPSULE BY MOUTH ONCE DAILY 30 capsule 10/26/19 22 Active amLODIPine (NORVASC) 10 MG tabletIndications :Essential hypertension, benign TAKE ONE TABLET BY MOUTH ONCE DAILY 90 tablet 1 10/26/19 22 Active insulin pen needle (31G X 5 MM) 31G X 5 MM miscellaneousIndi cations:Type 2 diabetes mellitus with stage 1 chronic kidney disease, without long-term current use of insulin (H) Use 1 pen needles daily or as directed. 100 each 3 11/17/19 22 Active glipiZIDE (GLUCOTROL XL) 10 MG 24 hr tabletIndications :Type 2 diabetes mellitus with stage 1 chronic kidney disease, without long-term current use of insulin (H) TAKE TWO TABLETS BY MOUTH EVERY DAY 180 tablet 1 12/07/19 22 Active carvedilol (COREG) 25 MG tabletIndications :Essential hypertension, benign TAKE TWO TABLETS BY MOUTH TWICE A DAY WITH MEALS 360 tablet 1 12/07/19 22 Active metFORMIN (GLUCOPHAGE-XR) 500 MG 24 hr tabletIndications :Type 2 diabetes mellitus with stage 1 chronic kidney disease, without long-term current use of insulin (H) TAKE TWO TABLETS BY MOUTH TWICE A DAY WITH FOOD 360 tablet 1 12/07/19 22 Active venlafaxine (EFFEXOR-XR) 150 MG 24 hr capsuleIndication s:Moderate episode of recurrent major depressive disorder (H) TAKE ONE CAPSULE BY MOUTH ONCE DAILY 90 capsule 1 12/31/19 22 Active venlafaxine (EFFEXOR XR) 75 MG 24 hr capsuleIndication s:Moderate episode of recurrent major depressive disorder (H) TAKE ONE CAPSULE BY MOUTH ONCE DAILY WITH A 150MG CAPSULE 90 capsule 2 01/27/20 22 Active oxyCODONE (ROXICODONE) 5 MG tabletIndications :Bilateral low back pain with right-sided sciatica, unspecified chronicity Take 1 tablet (5 mg) by mouth every 6 hours as needed for severe pain 60 tablet 04/09/20 22 Active traZODone (DESYREL) 100 MG tabletIndications :Major depressive disorder, recurrent episode, mild TAKE TWO TABLETS BY MOUTH AT BEDTIME 60 tablet 5 05/07/20 22 Active benazepril (LOTENSIN) 40 MG tabletIndications :CKD (chronic kidney disease) stage 1, GFR 90 ml/min or greater,Benign essential hypertension TAKE ONE TABLET BY MOUTH ONCE DAILY 90 tablet 06/23/20 22 Active ULTICARE SHORT 31G X 8 MM insulin pen needleIndications :Type 2 diabetes mellitus with stage 1 chronic kidney disease, without long-term current use of insulin (H) 2/DAY 100 each 3 10/17/19 23 Active spironolactone (ALDACTONE) 50 MG tabletIndications :Benign essential hypertension TAKE ONE TABLET BY MOUTH TWICE A DAY 60 tablet 10/30/19 23 Active LANTUS SOLOSTAR 100 UNIT/ML solnIndications:T ype 2 diabetes mellitus with stage 1 chronic kidney disease, without long-term current use of insulin (H) INJECT 44 UNITS UNDER THE SKIN EVERY MORNING AND 40 UNITS AT AT BEDTIME 75 mL 1 01/31/20 23 Active Active Problems Problem Noted Date Diagnosed Date Chronic, continuous use of opioids 01/15/2021 Moderate episode of recurrent major depressive d isorder 2020 Anxiety 01/30/2020 Complete Left Hamstring Tear (work related ) 10/26/2019 Controlled substance agreement signed 05/09/2019 Overview (09/19/2019): Patient is followed by Maya Goyal MD [...] Total Score(s): No flowsheet data found. Last [facility] website verification: 09/19/19 [email or web address] Fast [employer] E[email or web address] CKD (chronic kidney disease) stage 1, GFR 90 ml/min or greater 03/22/2019 Type 2 diabetes mellitus wit h stage 1 chronic kidney disease, without long-term current use of insulin 03/22/2019 Facet arthritis of cervical region 09/23/2018 Bilateral low back pain with right-sided sciatica, unspecified chronicity 03/11/2018 Morbid obesity 07/13/2017 Hyperlipidemia LDL goal <100 07/24/2010 Allergic rhinitis 05/13/2004 Overview (06/24/2015): Problem list name updated by automated process. Provider to review Benign essential hypertension 06/17/2002 Attention deficit disorder 06/17/2002 Overview (06/24/2015): Problem list name updated by automated process. [...] Comments Circulatory Father AAA Heart Disease Father ID with sudden d eath, complicated AAA repair [...] Assigned at Male 09/17/2018 5:00 PM MANAGER CHEMICAL Legal Sex Male 3:11 AM MANAGER CHEMICAL Gender Identity Male 09/17/2018 5:00 PM MANAGER CHEMICAL Sexual Orientation Straight 09/17/2018 5: 00 PM MANAGER CHEMICAL Last Filed Vital Signs Vital Sign Reading Time Taken Comments Blood Pressure 138/88 11/17/2021 2:13 PM MANAGER CHEMICAL Pulse 99 11/17/2021 2:13 PM MANAGER CHEMICAL Temperature 37.1 C (98.7 F) 11/17/2021 2:13 PM MANAGER CHEMICAL Respiratory Rate 18 11/17/2021 2:13 PM MANAGER CHEMICAL Oxygen Saturation 98% 11/17/2021 2:13 PM MANAGER CHEMICAL Inhaled Oxygen Concentration - - Weight 154.7 kg (341 lb) 11/17/2021 2:13 PM MANAGER CHEMICAL Height 188 cm (6' 2) 11/17/2021 2:13 PM MANAGER CHEMICAL Body Mass Index 43.78 11/17/2021 2:13 PM MANAGER CHEMICAL Plan of Treatment Health Maintenance Due Date Last Done Comments ANNUAL REVIEW OF HM ORDERS 1960 CT COLONOGRAPHY 1960 FLEX SIG 1960 sDNA (Cologuard) 1960 Pneumococcal Vaccine: 50+ Years (1 of 2 - PCV) 1977 FIT 06/25/2014 06/25/2013, 04/14/2011 RSV VACCINE (1 [...] SCREEN CLINIC Routine 11/10/2021 10:09 AM MANAGER CHEMICAL Chronic, continuous use of opioids ALBUMIN RANDOM URINE QUANTITATIVE Routine 11/10/2021 10:09 AM MANAGER CHEMICAL Type 2 diabetes mellitus with stage 1 chronic kidney disease, without long-term current use of insulin (H) Benign essential hypertension BASIC METABOLIC PANEL Routine 11/10/2021 10:01 AM MANAGER CHEMICAL Type 2 diabetes mellitus with stage 1 chronic kidney disease, without long-term current use of insulin (H) Benign essential hypertension HEMOGLOBIN A1C Routine 11/10/2021 10:01 AM MANAGER CHEMICAL Type 2 diabetes mellitus with stage 1 chronic kidney disease, without long-term current use of insulin (H) EYE EXAM - HIM SCAN 05/20/2021 1 2:00 AM CDT LIPID REFLEX TO DIRECT LDL PANEL Routine 04/13/2021 4:09 PM CDT Hyperlipidemia LDL goal <100 COLONOSCOPY Routine 08/13/2019 10:[address] CHEST/ABDOMEN/PELVIS W CONTRAST STAT 02/18/2018 12:20 PM CDT HEPATITIS C SCREEN REFLEX TO HCV RNA QUANT AND GENOTYPE Routine 08/10/2017 11:22 AM MANAGER CHEMICAL Encounter for routine adult health examination without abnormal findings FECAL COLORECTAL CANCER SCREEN FIT Routine 06/25/2013 11:31 AM CDT Screen for colon cancer UA MACROSCOPIC WITH REFLEX TO MICRO Routine 10/13/2010 4:49 PM MANAGER CHEMICAL HTN (hypertension) from Last 3 Months or Most Recently Relevant to Health Maintenance Results * (ABNORMAL) Drug Abuse Screen Panel 13, Urine (Pain Care Package) - lab collect (11/10/2021 10:09 [facility] Cannabinoids (71-gkl-6-carboxy -9-THC) Not Detected Not Detected, Indeterminate 11/10/2021 10:28 AM MANAGER CHEMICAL [facility] Comment:Cutoff for a negativ e cannabinoid is 50 ng/mL or less. Phencyclidine Not Detected Not Detected, Indeterminate 11/10/2021 10:28 AM MANAGER CHEMICAL [facility] Comment:Cutoff for a negativ e PCP is 25 ng/mL or less. Cocaine (Benzoylecgonine) Not Detected Not Detected, Indeterminate 11/10/2021 10:28 AM MANAGER CHEMICAL [facility] Comment:Cutoff for a negativ e cocaine is 150 ng/ml or less. Methamphetamine (d-Methamphetamin e) Not Detected Not Detected, Indeterminate 11/10/2021 10:28 AM MANAGER CHEMICAL [facility] Comment:Cutoff for a negativ e methamphetamine is 500 ng/ml or less. Opiates (Morphine) Not Detected Not Detected, Indeterminate 11/10/2021 10:28 AM MANAGER CHEMICAL [facility] Comment:Cutoff for a negativ e opiate is 100 ng/ml or less. Amphetamine (d-Amphetamine) Not Detected Not Detected, Indeterminate 11/10/2021 10:28 AM MANAGER CHEMICAL [facility] Comment:Cutoff for a negativ e amphetamine is 500 ng/mL or less. Benzodiazepines (Nordiazepam) Not Detected Not Detected, Indeterminate 11/10/2021 10:28 AM MANAGER CHEMICAL [facility] Comment:Cutoff for a negativ e benzodiazepine is 150 ng/ml or less. Tricyclic Antidepressants (Desipramine) Not Detected Not Detected, Indeterminate 11/10/2021 10:28 AM MANAGER CHEMICAL [facility] Comment:Cutoff for a negativ e tricyclic antidepressant is 300 ng/ml or less. Methadone Not Detected Not Detected, Indeterminate 11/10/2021 10:28 AM MANAGER CHEMICAL [facility] Comment:Cutoff for a negativ e methadone is 200 ng/ml or less. Barbiturates (Butalbital) Not Detected Not Detected, Indeterminate 11/10/2021 10:28 AM MANAGER CHEMICAL [facility] Comment:Cutoff for a negativ e barbituate is 200 ng/ml or less. Oxycodone Detected(A ) Not Detected, Indeterminate 11/10/2021 10:28 AM MANAGER CHEMICAL [facility] Comment: Cutoff for a positive oxycodone is greater than 100 ng/ml. This is an unconfirmed screening result to be used for medical purposes only. Propoxyphene (Norpropoxyphene) Not Detected Not Detected, Indeterminate 11/10/2021 10:28 AM MANAGER CHEMICAL [facility] Comment:Cutoff for a negativ e propoxyphene is 300 ng/ml or less. Buprenorphine Not Detected Not Detected, Indeterminate 11/10/2021 10:28 AM MANAGER CHEMICAL [facility] Comment:Cutoff for a negativ e buprenorphine is 10 ng/ml or less. Urine MID-STREAM URINE SPECIMEN / Unknown Non-blood Collection / Unknown 11/10/2021 10:09 AM MANAGER CHEMICAL 11/10/2021 10:09 AM MANAGER CHEMICAL us Maya Goyal MD LAB - URINE ORDERABLES Final Res ult [facility] [address], [address] [place] [address], [facility] [phone] * (ABNORMAL) Albumin Random Urine Quantitative with Creat Ratio (11/10/2021 10:09 AM MANAGER CHEMICAL) Creatinine Urine mg/dL 74 mg/dL 11/11/2021 11:04 AM MANAGER CHEMICAL [facility] Albumin Urine mg/L 14 mg/L 11/11/2021 11:04 AM MANAGER CHEMICAL [facility] Albumin Urine mg/g Cr 18.92(H) 0.00 - 17.00 mg/g Cr 11/11/2021 11:04 AM MANAGER CHEMICAL [facility] Urine MID-STREAM URINE SPECIMEN / Unknown Non-blood Collection / Unknown 11/10/2021 10:09 AM MANAGER CHEMICAL 11/10/2021 10:09 AM MANAGER CHEMICAL Maya Goyal MD LAB - URINE ORDERABLES Final Res ult [facility] [address] Lab (no room number, 1st floor of clinic) [place] [address], [facility] [phone] * (ABNORMAL) Hemoglobin A1c (11/10/2021 10:01 AM MANAGER CHEMICAL) Hemoglobin A1C 6.6(H) 0.0 - 5.6 % 11/10/2021 10:26 AM MANAGER CHEMICAL [facility] Comment: Normal <5.7% Prediabetes 5.7-6.4% Diabetes 6.5% or higher Note: Adopted from ADA consensus guidelines. Blood BLOOD SPECIMEN / Unknown Venipuncture / Unknown 11/10/2021 10:01 AM MANAGER CHEMICAL 11/10/2021 10:02 AM MANAGER CHEMICAL Maya Goyal MD LAB - BLOOD ORDERABLES Final Res ult [facility] [address], [address] [place] [address], [facility] [phone] * (ABNORMAL) Basic metabolic panel (Ca, Cl, CO2, Creat, Gluc, K, Na, BUN) (11/10/2021 10:01 AM MANAGER CHEMICAL) Sodium 131(L) 133 - 144 mmol/L 11/11/2021 8:39 AM MANAGER CHEMICAL [facility] Potassium 4.8 3.4 - 5.3 mmol/L 11/11/2021 8:39 AM MANAGER CHEMICAL [facility] Chloride 96 94 - 109 mmol/L 11/11/2021 8:39 AM MANAGER CHEMICAL [facility] Carbon Dioxide (CO2) 22 20 - 32 mmol/L 11/11/2021 8:39 AM MANAGER CHEMICAL [facility] Anion Gap 13 3 - 14 mmol/L 11/11/2021 8:39 AM MANAGER CHEMICAL [facility] Urea Nitrogen 11 7 - 30 mg/dL 11/11/2021 8:39 AM MANAGER CHEMICAL [facility] Creatinine 0.92 0.66 - 1.25 mg/dL 11/11/2021 8:39 AM MANAGER CHEMICAL [facility] Calcium 8.9 8.5 - 10.1 mg/dL 11/11/2021 8:39 AM MANAGER CHEMICAL [facility] Glucose 135(H) 70 - 99 mg/dL 11/11/2021 8:39 AM MANAGER CHEMICAL [facility] GFR Estimate >90 >60 mL/min/1.7 3m2 11/11/2021 8:39 AM MANAGER CHEMICAL [facility] Comment:Effective August 252020 eGFRcr in adults is calculated using the 2020 CKD-EPI creatinine equation which includes age and gender (Donis et al., NEJM, DOI: 10.1056/FYEBbv3377265) Blood BLOOD SPECIMEN / Unknown Venipuncture / Unknown 11/10/2021 10:01 AM MANAGER CHEMICAL 11/10/2021 10:02 AM MANAGER CHEMICAL us Maya Goyal MD LAB - BLOOD ORDERABLES Final Res ult [facility] [address] Lab (no room number, 1st floor of clinic) [place] [address], [facility] [phone] * EYE EXAM - HIM SCAN (05/20/2021 12:00 AM CDT) RETINOPATHY NEGATIVE 05/20/2021 Narrative Kya Riley - 05/20/2021 12:00 AM CDT DIABETIC EYE EXAM [facility] us Provider Outside OTHER Edited Result - Final * (ABNORMAL) Lipid panel reflex to direct LDL Fasting (04/13/2021 4:09 PM CDT) Cholesterol 263(H) <200 mg/dL 04/15/2021 8:03 AM CDT [facility] Comment: Age 0-19 years Desirable: <170 mg/dL Borderline high: 170-199 mg/dl High: >199 mg/dl Age 20 years and older Desirable: <200 mg/dL Triglycerides 369(H) <150 mg/dL 04/15/2021 8:03 AM CDT [facility] Comment: 0-9 years: Normal: Less than 75 mg/dL Borderline high: 75-99 mg/dL High: Greater than or equal to 100 mg/dL 0-19 years: Normal: Less than 90 mg/dL Borderline high: 90-129 mg/dL High: Greater than or equal to 130 mg/dL 20 years and older: Normal: Less than 150 mg/dL Borderline high: 150-199 mg/dL High: 200-499 mg/dL Very high: Greater than or equal to 500 mg/dL Direct Measure HDL 41 >=40 mg/dL 04/15/2021 8:03 AM CDT [facility] Comment: 0-19 years: Greater than or equal to 45 mg/dL Low: Less than 40 mg/dL Borderline low: 40-44 mg/dL 20 years and older: Female: Greater than or equal to 50 mg/dL Male: Greater than or equal to 40 mg/dL [...] CDT [facility] Comment: 0-19 years: Desirable: Less than 120 mg/dL Borderline high: 120-144 mg/dL High: Greater than or equal to 145 mg/dL 20 years and older: Desirable: 130 mg/dL Above Desirable: 130-159 mg/dL Borderline high: 160-189 mg/dL High: 190-219 mg/dL Very high: Greater than or equal to 220 mg/dL Patient Fasting > 8hrs? Yes 04/15/2021 8:03 AM CDT [facility] Blood STRUCTURE OF LEFT UPPER LIMB / Unknown Venipuncture / Unknown 04/13/2021 4:09 PM CDT 04/13/2021 4:10 PM CDT us Maya Goyal MD LAB - BLOOD ORDERABLES Final Res ult LABORATORY [facility] [address] Lab (no room number, 1st floor of clinic) [place] [address], [facility] [phone] * COLONOSCOPY (08/13/2019 10:22 AM MANAGER CHEMICAL) [facility] COLONOSCOPY [facility] Patient Name: Cassie Rivas Procedure Date: 08/13/2019 10:22 AM Date of : 1960 Admit Type: Outpatient Age: 59 Gender: Male Attending MD: Karlo Luis MD Total Sedation Time: 21_minutes continuous bedside 1:1 Instrument Name: 221 - Adult Colonoscope Procedure: Colonoscopy Indications: High risk colon cancer surveillance: Personal history of colonic polyps Providers: Karlo Luis MD (Doctor) Referring MD: Maya Goyal MD (Referring MD) Medicines: Midazolam 4 mg IV, Fentanyl 200 micrograms IV, Ondansetron 4 mg IV Complications: No immediate complications. Procedure: Pre-Anesthesia Assessment: - Prior to the procedure, a History and Physical was performed, and patient medications and allergies were reviewed. The patient is competent. The risks and benefits of the procedure and the sedation options and risks were discussed with the patient. All questions were answered and informed consent was obtained. Patient identification and proposed procedure were verified in the pre-procedure area. Mental Status Examination: alert and oriented. Airway Examination: normal oropharyngeal airway and neck mobility. Respiratory Examination: clear to auscultation. CV Examination: normal. Prophylactic Antibiotics: The patient does not require prophylactic antibiotics. Prior Anticoagulants: The patient has taken no previous anticoagulant or antiplatelet agents. ASA Grade Assessment: II - A patient with mild systemic disease. After reviewing the risks and benefits, the patient was deemed in satisfactory condition to undergo the procedure. The anesthesia plan was to use moderate sedation / analgesia (conscious sedation). Immediately prior to administration of medications, the patient was re-assessed for adequacy to receive sedatives. The heart rate, respiratory rate, oxygen saturations, blood pressure, adequacy of pulmonary ventilation, and response to care were monitored throughout the procedure. The physical status of the patient was re-assessed after the procedure. After obtaining informed consent, the colonoscope was passed under direct vision. Throughout the procedure, the patient's blood pressure, pulse, and oxygen saturations were monitored continuously. The Olympus Adult Colonoscope, Model # CF-H190L, [place] # 221, SN # [id number] was introduced through the anus and advanced to the cecum, identified by appendiceal orifice and ileocecal valve. The colonoscopy was performed without difficulty. The patient tolerated the procedure well. The quality of the bowel preparation was good. Findings: The perianal and digital rectal examinations were normal. Multiple small and large-mouthed diverticula were found in the entire colon. The exam was otherwise without abnormality on direct and retroflexion views. Impression: - Diverticulosis in the entire examined colon. - The examination was otherwise normal on direct and retroflexion views. - No specimens collected. Recommendation: - Repeat colonoscopy in 5 years for surveillance. Do a split dose prep. Procedure Code(s): --- Professional --- G0105, Colorectal cancer screening; colonoscopy on individual at high risk Diagnosis Code(s): --- Professional --- Z86.010, Personal history of colonic polyps CPT copyright 2018 [employer]. All rights reserved. The codes documented in this report are preliminary and upon beef cattle farm worker review may be revised to meet current compliance requirements. Electronically signed by Karlo Luis MD __ Karlo Luis MD 08/13/2019 10:51:03 AM I was physically present for the entire viewing portion of the exam. Karlo Luis MD Number of Addenda: 0 Note Initiated On: 08/13/2019 10:22 AM Procedure Date: 08/13/2019 10:22:02 AM Scope Withdrawal Time: 0 hours 6 minutes 13 seconds Total Procedure Duration: 0 hours 18 minutes 55 seconds Estimated Blood Loss: Scope In: 10:25:38 AM Scope Out: 10:44:33 AM RADIOLOGY RESULTS 08/13/2019 10:2 2 AM MANAGER CHEMICAL us Maya Goyal MD PROCEDURES Edited Result - Final RADIOLOGY RESULTS * CT Chest/Abdomen/Pelvis w Contrast [...] infiltration of the liver. LOLIS BEAR MD us Homar Vega MD IMG CT ORDERABLES Final Re sult * Hepatitis C Screen Reflex to HCV RNA Quant and Genotype (08/10/2017 11:22 AM MANAGER CHEMICAL) Hepatitis C Antibody Nonreactive NR^Nonre active 08/13/2017 10:46 AM MANAGER CHEMICAL [facility] Comment: Assay performance characteristics have not been established for newborns, infants, and children Blood specimen (specimen) 08/10/2017 11:22 AM MANAGER CHEMICAL 08/10/2017 11:23 AM MANAGER CHEMICAL us Maya Goyal MD LAB - BLOOD ORDERABLES Final Res ult [facility] [address] [place], [place] [address] * Fecal colorectal cancer screen (FIT) (06/25/2013 11:31 AM CDT) Occult Blood Scn FIT Negative NEG [facility] Stool specimen (specimen) 06/25/2013 11:31 AM CDT 06/25/2013 11:32 AM CDT Maya Goyal MD LAB - STOOLS ORDERABLES Final Re sult Performing Organization Address [facility] [place] [facility]/ZIP Co de Phone Number [facility] [address] [place] [address] * (ABNORMAL) UA macroscopic with reflex to micro (10/13/2010 4:49 PM MANAGER CHEMICAL) Color Urine Yellow [facility] Appearance Urine Clear [facility] Glucose Urine Negative NEG mg/dL [facility] EW [facility] Bilirubin Urine Negative NEG [facility] Ketones Urine Negative NEG mg/dL [facility] Specific [place] Urine 1.015 1.003 - 1.035 [facility] Blood Urine Moderate(A) NEG [facility] pH Urine 5.5 5.0 - 7.0 pH [facility] Protein Albumin Urine Negative NEG mg/dL [facility] Urobilinogen Urine 0.2 0.2 - 1.0 EU/dL [facility] Nitrite Urine Negative NEG [facility] Leukocyte Esterase Urine Negative NEG [facility] Source Midstream Urine [facility] Urine specimen (specimen) 10/13/2010 4:49 PM MANAGER CHEMICAL 10/13/2010 4:54 PM MANAGER CHEMICAL Maya Goyal MD LAB - URINE ORDERABLES Final Res ult Performing Organization Address City/[facility] [place] [facility]/ZIP Co de Phone Number [facility] [address] [place] [address] from Last 3 Months or Most Recently Relevant to Health Maintenance Insurance [employer] [facility] INSURANCE [employer]S [employer] [facility] [employer] NONE (Work) [id number] [phone] [employer] * Guarantor: Cassie Rivas Account Type Relation to Patient Date of Phone Billing Address Medication Therapy Self 1960 [address] [address] Advance Directives For more information, please contact: [phone] * Full Code (Latest Code Status on [...] 1:26 PM 09/12/2017 10:19 AM Care Teams Human Intelligence Relationship Specialty Start Date End Date No Ref-Primary, Physician PCP - General 11/15/[address] [address] Assigned PCP 10/18/23
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
--- OUTSIDE RECORDS SUMMARY | 2024-11-23 19:08 | XMS_ITS | Encounter Summary ---
Author Organization [facility] Address [address] [place] [address]. [place] [address] Care Team Providers Care Client Technical Professional Name Role Phone Maya Goyal MD Primary Care Provider UnavailMaya Vazquez MD Unavailable Unavailable Erlin Delcid MD Unavailable [phone] Mehdi Bass DPM Unavailable [phone] Kae Whipple [facility] Unavailable [phone] Maya Goyal MD Unavailable Unavailable No Ref-Primary, Physician Primary Care Provider Mehdi Bass DPM Unavailable [phone] [facility] Unavailable Reason for Visit * Reason Onset Date Comments Orders 09/04/2021 Encounter Details Date Type Department Care Team (Late st Contact Info) Description 09/04/2021 [facility] [place] [facility] [place] [address] [place] [address] Maya Goyal MD INACTIVE IN [place] 08/23/2024 Orders Social History Tobacco Use Types Packs/Day [...] Sex Assigned at Male 09/17/2018 5:00 PM SAMPLER FIRST Legal Sex Male 3:11 AM SAMPLER FIRST Gender Identity Male 09/17/2018 5:00 PM SAMPLER FIRST Sexual Orientation Straight 09/17/2018 5: 00 PM SAMPLER FIRST COVID-19 Exposure Response Date Recorded In the last month, have you been in contact with someone who was confirmed or suspected to have Coronavirus / COVID-19? No / Unsure 08/17/2021 12:57 PM SAMPLER FIRST documented as of this encounter Miscellaneous Notes * Telephone Encounter - Rukhsana Bowden RN - 09/06/2021 10:08 AM SAMPLER FIRST [employer] message. LER FIRST documented in this encounter Plan of Treatment Not on file documented as of this encounter Visit Diagnoses Not on filedocumented in this encounter Additional Health Concerns Assessment Noted Time PHQ-9 Depression Total Score: 10 021 2:58 PM CDT documented as of this encounter Care Teams Client Technical Professional Relationship Specialty Start Date End Date Maya Goyal MD PCP - General 05/03/04 11/14/22 No Ref-Primary, Physician PCP - General 11/15/22 Maya Goyal MD Assigned PCP 06/27/12 10/17/23 Erlin Delcid MD [address] [address] Assigned Surgical Provider 09/12/20 [place] DPM [address] [facility] [address] [place] [address] Assigned Musculoskeletal Provider 08/14/21 10/27/22 Kae Whipple [facility] [address] [place] [address] Assigned MTM Pharmacist 03/18/22 Maya Goyal MD Assigned Pain Medication Provider 10/02/22 03/23/23 Mehdi aBss DPM [address] [facility] [address] [place] [address] Assigned Surgical Provider 10/28/22 [facility] [address] [place] [address] Assigned PCP 10/18/23 documented as of this encounter
--- OUTSIDE RECORDS SUMMARY | 2024-11-23 19:08 | XMS_ITS | Encounter Summary ---
Author Organization [facility] Address [address] [place] [address] Care Team Providers Care Workers Compensation Claims Analyst Name Role Phone Maya Goyal MD Primary Care Provider UnavailMaya Vazquez MD Unavailable Unavailable Erlin Delcid MD Unavailable [phone] Mehdi Bass DPM Unavailable [phone] Kae Whipple [facility] Unavailable Maya Goyal MD Unavailable Unavailable No Ref-Primary, Physician Primary Care Provider Mehdi Bass DPM Unavailable [phone] [facility] Unavailable Reason for Visit * Reason Onset Date Comments Patient Inquiry 09/02/2021 Encounter Details Date Type Department Care Team (Late st Contact Info) Description 09/02/2021 [facility] [address] [address] Mehdi Bass DPM [address] [facility] [address] [place] [address] Patient Inquiry Social History Tobacco Use Types [...] Sex Assigned at Male 09/17/2018 5:00 PM PURCHASE PRICE ANALYST Legal Sex Male 3:11 AM PURCHASE PRICE ANALYST Gender Identity Male 09/17/2018 5:00 PM PURCHASE PRICE ANALYST Sexual Orientation Straight 09/17/2018 5: 00 PM PURCHASE PRICE ANALYST COVID-19 Exposure Response Date Recorded In the last month, have you been in contact with someone who was confirmed or suspected to have Coronavirus / COVID-19? No / Unsure 08/17/2021 12:57 PM PURCHASE PRICE ANALYST documented as of this encounter Plan of Treatment Not on file documented as of this encounter Visit Diagnoses Not on filedocumented in this encounter Additional Health Concerns Assessment Noted Time PHQ-9 Depression Total Score: 10 021 2:58 PM CDT documented as of this encounter Care Teams Workers Compensation Claims Analyst Relationship Specialty Start Date End Date Maya Goyal MD PCP - General 05/03/04 11/14/22 No Ref-Primary, Physician PCP - General 11/15/22 Maya Goyal MD Assigned PCP 06/27/12 10/17/23 Erlin Delcid MD [address] [facility] [address] [place] [address] Assigned Surgical Provider 09/12/20 Mehdi Bass DPM [address] [facility] [address] [place] [address] Assigned Musculoskeletal Provider 08/14/21 10/27/22 Kae Whipple [place] [place] [address] Assigned MTM Pharmacist 03/18/22 Maya Goyal MD Assigned Pain Medication Provider 10/02/22 03/23/23 Mehdi Bass DPM [address] [facility] [address] [place], [place] [address] Assigned Surgical Provider 10/28/[address] [id number] Assigned PCP 10/18/23 documented as of this encounter
--- OUTSIDE RECORDS SUMMARY | 2024-11-23 19:09 | XMS_ITS | Referral Summary ---
Author Organization [facility] Address [address] [place] [address] Care Team Providers Care Auto Engine Mechanic Name Role Phone Shar Hoff MD Unavailable [phone] Doctor, No Primary Care Provider Unavailabl e Allergies No known active allergies Medications Fish Oil (FISH OIL) 340-1,000 mg oral [...] Recorded Sex Assigned at Not on file Legal Sex Male 4:05 AM CDT Gender Identity Not on file Sexual Orientation Not on file Last Filed Vital Signs Vital Sign Reading Time Taken Comments Blood Pressure 134/95 07/18/2021 4:16 PM CDT Pulse 68 07/18/2021 4:16 PM CDT Temperature 36.2 C (97.1 F) 07/18/2021 4:00 PM CDT Respiratory Rate 15 07/18/2021 4:16 PM CDT [...] 136 - 145 mMol/L 07/19/2016 5:16 AM [facility] Potassium 4.0 3.5 - 5.1 mMol/L 07/19/2016 5:16 AM [facility] Chloride 104 98 - 112 mMol/L 07/19/2016 5:16 AM [facility] Carbon Dioxide 25 21 - 32 mMol/L 07/19/2016 5:16 AM [facility] BUN (Urea Nitro) 17 7 - 24 mg/dL 07/19/2016 5:16 AM [facility] Creatinine 0.83 0.70 - 1.30 mg/dL 07/19/2016 5:16 AM [facility] Est GFR (CKD-EPI) >60 >60 mL/min 07/19/2016 5:16 AM [facility] EST GFR IF AM >60 >60 mL/min 07/19/2016 5:16 AM [facility] Glucose 99 74 - 106 mg/dL 07/19/2016 5:16 AM [facility] Calcium, Serum 8.4(L) 8.5 - 10.1 mg/dL 07/19/2016 5:16 AM [facility] Anion Gap 11.0 0.0 - 15.0 mMol/L 07/19/2016 5:16 AM [facility] Blood 07/19/2016 4:45 AM CDT 07/19/2016 4:48 AM CDT us Brigette Pena MD CHEMISTRY ORDERABLE Final Re sult [facility] [address] [place] [address] from Last 3 Months or Most Recently Relevant to Health Maintenance Insurance [facility] COMMERCIAL [employer] MEDICARE ADVANTAGE Advance Directives For more information, please contact: [phone] * Full Code (Latest Code Status on File) Date Activated Date Inactivated Comments 07/19/2016 6:14 AM 07/19/2016 4:02 PM Question Answer Comments How was code status determined? Patient Care Teams Auto Engine Mechanic Relationship Specialty Start Date End Date Doctor, No No ad PCP - General Radiology 01/01/23 Shar Hoff MD [address] [place] [address] [place] [address] Neurology 01/01/23
--- OUTSIDE RECORDS SUMMARY | 2024-11-23 19:09 | XMS_ITS | Encounter Summary ---
Author Organization [facility] Address [address] [place] [address] Care Team Providers Care Telephone Diaphragm Assembler Name Role Phone Maya Goyal MD Primary Care Provider Unavailabl e None Primary Care Provider Unavailnikole e Eva Mckenna RN Unavailable [phone] Maya Goyal MD Unavailable Unavailable Maya Goyal MD Unavailable Unavailable Mehdi Sen MD Unavailable [phone] Erlin Delcid MD Unavailable [phone] Elicia Bedoya [facility] Unavailable [phone] Kae Whipple [facility] Unavailable [phone] Mehdi BassM Unavailable [phone] Kae Whipple [facility] Unavailable [phone] Maya Goyal MD Unavailable Unavailable No Ref-Primary, Physician Primary Care Provider Mehdi Bass DPM Unavailable [phone] [facility] Unavailable Encounter Details Date Type Department Care Team (Late st Contact Info) Description 01/25/2003 [facility] [address] [facility] [address] [place] [address] Maya Goyal MD INACTIVE IN [place] 08/23/2024 ER ENCOUNTER (Primary Dx) Social History Tobacco [...] Sex Assigned at Male 09/17/2018 5:00 PM PHOTOGRAPHIC MACHINE OPERATOR Legal Sex Male 3:11 AM PHOTOGRAPHIC MACHINE OPERATOR Gender Identity Male 09/17/2018 5:00 PM PHOTOGRAPHIC MACHINE OPERATOR Sexual Orientation Straight 09/17/2018 5: 00 PM PHOTOGRAPHIC MACHINE OPERATOR documented as of this encounter Progress Notes * 01/25/2003 11:59 PM CDTAddended by: CAMERON MURRY on: 02/03/2003,11:27 AM Modules accepted: Progress Notes 00: 00 Emergency Department Encounter-EDWARD ERVIN () [Entered: 00:00 Transcri ption ([facility])] : 56 PRIMARY MD: Maya Goyal [...] No known d rug allergies. 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 He [...] re-evaluation. [id number] EDWARD DICKINSON MD [place]: Document: [id number] [place], [place] Name: CASSIE RIVAS EMERGENCY ROOM ENCOUNTER Page 2 of 2 LCN: ERB DSC: [place], [place] Name: MR#: : Admit Date: CASSIE RIVAS [id number] 01/25/2003 Doctor: EDWARD DICKINSON MD EMERGENCY ROOM ENCOUNTER Page 1 of 2 Electronically filed by Cameron Murry 02/03/2003 11:27 AM documented in this encounter Plan of Treatment Not on file documented as of this encounter Visit Diagnoses Diagnosis ER ENCOUNTER- Primary documented in this encounter Additional Health Concerns Infection Onset Date Last Indicated Resolved Time COVID-19 08/27/2020 08/27/2020 09/17/2020 11:4 0 PM PHOTOGRAPHIC MACHINE OPERATOR documented as of this encounter Care Teams Telephone Diaphragm Assembler Relationship Specialty Start Date End Date Maya Goyal MD PCP - General 05/03/04 11/14/22 None PCP - General 12/01/02 05/02/04 Maya Goyal MD INACTIVE IN [place] 08/23/2024 PCP - Assigned PCP 10/22/09 11/26/18 No Ref-Primary, Physician PCP - General 11/15/22 Eva cMkenna, [facility] Collision Technician Primary Care - CC 02/19/18 Maya Goyal MD Assigned PCP 06/27/12 10/17/23 Mehdi Sen MD [address] [place] [address] Assigned Musculoskeletal Provider 07/16/20 12/18/20 Erlin Delcid MD [address] [facility] 500 [place] [address] Assigned Surgical Provider 09/12/20 Elicia Bedoya, [facility] [address] [facility] [address] [place] [address] Pharmacist Pharmacist 11/09/20 12/06/20 Kae Whipple [facility] [address] [place] [address] Pharmacist Pharmacist 11/30/20 12/06/20 Meh[place] DPM [address] [facility] [address] [place] [address] Assigned Musculoskeletal Provider 08/14/21 10/27/22 Kae Whipple [facility] [address] [place] [address] Assigned MTM Pharmacist 03/18/22 Maya Goyal MD Assigned Pain Medication Provider 10/02/22 03/23/23 Mehdi Bass DPM [address] [facility] [address] [place], [place] [address] Assigned Surgical Provider 10/28/22 [facility] [address] [place], [place] [address] Assigned PCP 10/18/23 documented as of this encounter
--- OUTSIDE RECORDS SUMMARY | 2024-11-23 19:09 | XMS_ITS | Encounter Summary ---
Author Organization [facility] Address [address] [place] [address] Care Team Providers Care Bulb Grower Name Role Phone Maya Goyal MD Primary Care Provider UnavailEva Brannon RN Unavailable [phone] Maya Goyal MD Unavailable Unavailable Maya Goyal MD Unavailable Unavailable Mehdi Sen MD Unavailable [phone] Erlin Delcid MD Unavailable [phone] Elicia Bedoya [facility] Unavailable [phone] Kae Whipple [facility] Unavailable Mehdi Bass DPM Unavailable [phone] Kae Whipple [facility] Unavailable [phone] Maya Goyal MD Unavailable Unavailable No Ref-Primary, Physician Primary Care Provider Mehdi BassM Unavailable [phone] [facility][Note 2] Unavailable Encounter Details Date Type Department Care Team (Latest Contact Info) Description 08/29/[address] [facility] [address] [place] [address] [place] [address] Maya Goyal MD INACTIVE IN [place] 08/23/2024 BENIGN HYPERTENSION (Primary Dx) Social History Tobacco Use Types Packs/Day Years Used Date Smoking Tobacco: Every Day Cigarettes 0.5 20 Alcohol Use Standard Drinks/Week Comments Yes 0 (1 standard drink = 0.6 oz pur e alcohol) Social once every 3 months Sex and Gender Information Value Date Recorded Sex Assigned at Male 09/17/2018 5:00 PM HAND MITER OPERATOR Legal Sex Male 3:11 AM HAND MITER OPERATOR Gender Identity Male 09/17/2018 5:00 PM HAND MITER OPERATOR Sexual Orientation Straight 09/17/2018 5: 00 PM HAND MITER OPERATOR documented as of this encounter Plan of Treatment Not on file documented as of this encounter Visit Diagnoses Diagnosis BENIGN HYPERTENSION- Primary Essential hypertension, benign documented in this encounter Additional Health Concerns Infection Onset Date Last Indicated Resolved Time COVID-19 08/27/2020 08/27/2020 09/17/2020 11:4 0 PM HAND MITER OPERATOR documented as of this encounter Care Teams Bulb Grower Relationship Specialty Start Date End Date Maya Goyal MD PCP - General 05/03/04 11/14/22 Maya Goyal MD INACTIVE IN [place] 08/23/2024 PCP - Assigned PCP 10/22/09 11/26/18 No Ref-Primary, Physician PCP - General 11/15/22 Eva Mckenna RN Clinic Engineering Specialist Primary Care - CC 02/19/18 Maya Goyal MD Assigned PCP 06/27/12 10/17/23 Mehdi Sen MD [address] [place] [address] Assigned Musculoskeletal Provider 07/16/20 12/18/20 Erlin Delcid MD [address] [address] Assigned Surgical Provider 09/12/20 Elicia Bedoya, [facility] [address] [place] [address] [address] [place] [address] Pharmacist Pharmacist 11/09/20 12/06/20 Kae Whipple R[facility] [address] [place] [address] Pharmacist Pharmacist 11/30/20 12/06/20 Mehdi Bass DPM [address] [place] [address] [address] [place] [address] Assigned Musculoskeletal Provider 08/14/21 10/27/22 Kae Whipple RPH [address] [place] [address] Assigned MTM Pharmacist 03/18/22 Maya Goyal MD Assigned Pain Medication Provider 10/02/22 03/23/23 Mehdi Bass DPM [address] [place] [address] [place] [address] Assigned Surgical Provider 10/28/22 [facility][Note 2] [address] [place] [address] Assigned PCP 10/18/23 documented as of this encounter
--- OUTSIDE RECORDS SUMMARY | 2024-11-23 19:09 | XMS_ITS | Encounter Summary ---
Author Organization [facility] Address [address] [place] [address] Care Team Providers Care Hand Glove Cleaner Name Role Phone Maya Goyal MD Primary Care Provider Unavailabl e None Primary Care Provider Unavailnikole e Eva Mckenna RN Unavailable [phone] Maya Goyal MD Unavailable Unavailable Maya Goyal MD Unavailable Unavailable Mehdi Sen MD Unavailable [phone] Erlin Delcid MD Unavailable [phone] Elicia Bedoya [facility] Unavailable [phone] Kae Whipple [facility] Unavailable [phone] Mehdi BassM Unavailable [phone] Kae Whipple [facility] Unavailable [phone] Maya Goyal MD Unavailable Unavailable No Ref-Primary, Physician Primary Care Provider Mehdi BassM Unavailable [phone] [facility] Unavailable Encounter Details Date Type Department Care Team (Late st Contact Info) Description 03/10/2003 [facility] [address] [address] Jonathan Casillas MD XXX RETIRED XXX [address] [phone] Social History Tobacco Use Types Packs/Day Years Used Date Smoking Tobacco: Never Assessed Sex and Gender Information Value Date Recorded Sex Assigned at Male 09/17/2018 5:00 PM ADMIN ASST Legal Sex Male 3:11 AM ADMIN ASST Gender Identity Male 09/17/2018 5:00 PM ADMIN ASST Sexual Orientation Straight 09/17/2018 5: 00 PM ADMIN ASST documented as of this encounter Plan of Treatment Not on file documented as of this encounter Visit Diagnoses Not on filedocumented in this encounter Additional Health Concerns Infection Onset Date Last Indicated Resolved Time COVID-19 08/27/2020 08/27/2020 09/17/2020 11:4 0 PM ADMIN ASST documented as of this encounter Care Teams Hand Glove Cleaner Relationship Specialty Start Date End Date Maya Goyal MD PCP - General 05/03/04 11/14/22 None PCP - General 12/01/02 05/02/04 Maya Goyal MD INACTIVE IN [place] 08/23/2024 PCP - Assigned PCP 10/22/09 11/26/18 No Ref-Primary, Physician PCP - General 11/15/22 Eva Mckenna RN Clinic Wrecking Mechanic Primary Care - CC 02/19/18 Maya Goyal MD Assigned PCP 06/27/12 10/17/23 Mehdi Sen MD [address] [place] [address] Assigned Musculoskeletal Provider 07/16/20 12/18/20 Erlin Delcid MD [address] [address] Assigned Surgical Provider 09/12/20 Elicia Bedoya, [facility] [address] [place] [address] [place] [address] Pharmacist Pharmacist 11/09/20 12/06/20 Kae Whipple [facility] [address] [place] [address] Pharmacist Pharmacist 11/30/20 12/06/20 Mehdi Bass DPM [id number] [place] [address] [address] [place] [address] Assigned Musculoskeletal Provider 08/14/21 10/27/22 Kae Whipple R[facility] [address] [place] [address] Assigned MTM Pharmacist 03/18/22 Maya Goyal MD Assigned Pain Medication Provider 10/02/22 03/23/23 Mehdi Bass DPM [address] [place] [address] [address] [place] [address] Assigned Surgical Provider 10/28/22 [facility] [address] [place] [address] Assigned PCP 10/18/23 documented as of this encounter
--- OUTSIDE RECORDS SUMMARY | 2024-11-23 19:09 | XMS_ITS | Encounter Summary ---
Author Organization [facility] Address [address] [place] [address] Care Team Providers Care Tree Loader Meat Name Role Phone Maya Goyal MD Primary Care Provider Unavailabl e None Primary Care Provider Unavailnikole e Eva Mckenna RN Unavailable [phone] Maya Goyal MD Unavailable Unavailable Maya Goyal MD Unavailable Unavailable Mehdi Sen MD Unavailable [phone] Erlin Delcid MD Unavailable [phone] Elicia Bedoya [facility] Unavailable [phone] Kae Whipple [facility] Unavailable [phone] Mehdi BassM Unavailable [phone] Kae Whipple [facility] Unavailable [phone] Maya Goyal MD Unavailable Unavailable No Ref-Primary, Physician Primary Care Provider Mehdi BassM Unavailable [phone] [facility] Unavailable Encounter Details Date Type Department Care Team (Late st Contact Info) Description 02/16/2003 [facility] 303 [facility] [address] [place] [address] Maya Goyal MD INACTIVE IN [place] 08/23/2024 ER ENC (Primary Dx) Social History Tobacco [...] Sex Assigned at Male 09/17/2018 5:00 PM CONFIDENTIAL SECRETARY Legal Sex Male 3:11 AM CONFIDENTIAL SECRETARY Gender Identity Male 09/17/2018 5:00 PM CONFIDENTIAL SECRETARY Sexual Orientation Straight 09/17/2018 5: 00 PM CONFIDENTIAL SECRETARY documented as of this encounter Progress Notes * 02/16/2003 11:59 PM RAFA SYKES 00:00 Emergency Department Encounter-[facility] NEISHA HAWK () [Ente red: 00:00 Steam Power Plant Operator (HIM)] CHIEF COMPLAINT: Ankle pain. 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 A rolling tool box rolled into his right medial ankle resulting in pain. He p resents now for evaluation. PAST MEDICAL HISTORY: Hypertension and hypercholesterolemia. CURRENT MED ICATIONS: Lotrel, Zocor and gemfibrozil. ALLERGIES: No known allergies. SOCIAL HISTORY: The carlos zavala works for [employer] as above. He is a one pack [...] Skin: Warm and dry and as above. [facility] DEPARTMENT COURSE AND TREATMENT: The [...] 1. Rest, ice and elevation. 2. Ibuprofen [id number]-lrywpqm prn. 3. Work restricti ons as a [...] COVID-19 08/27/2020 08/27/2020 09/17/2020 11:4 0 PM CONFIDENTIAL SECRETARY documented as of this encounter Care Teams Tree Loader Meat Relationship Specialty Start Date End Date Maya Goyal MD PCP - General 05/03/04 11/14/22 None PCP - General 12/01/02 05/02/04 Maya Goyal MD INACTIVE IN [place] 08/23/2024 PCP - Assigned PCP 10/22/09 11/26/18 No Ref-Primary, Physician PCP - General 11/15/22 Eva Mckenna RN Clinic Sr. Pricing Analyst Primary Care - CC 02/19/18 Maya Goyal MD Assigned PCP 06/27/12 10/17/23 Mehdi Sen MD [address] [place], [place] [address] Assigned Musculoskeletal Provider 07/16/20 12/18/20 Erlin Delcid MD [address] [address] Assigned Surgical Provider 09/12/20 Elicia Bedoya [facility] [address] [place] [address] 812 [place] [address] Pharmacist Pharmacist 11/09/20 12/06/20 Kae Whipple [facility] [address] [place] [address] Pharmacist Pharmacist 11/30/20 12/06/20 Mehdi Bass DPM [id number] [place] [address] [place] [address] Assigned Musculoskeletal Provider 08/14/21 10/27/22 Kae Whipple [facility] [address] [place] [address] Assigned MTM Pharmacist 03/18/22 Maya Goyal MD Assigned Pain Medication Provider 10/02/22 03/23/23 Mehdi Bass DPM [id number] [place] [address] [place] [address] Assigned Surgical Provider 10/28/22 [facility] [address] [place] [address] Assigned PCP 10/18/23 documented as of this encounter
--- OUTSIDE RECORDS SUMMARY | 2024-11-23 19:09 | XMS_ITS | Encounter Summary ---
Author Organization [facility] Address [address] [place] [address] Care Team Providers Care Memory Care Program Resident Name Role Phone Maya Goyal MD Primary Care Provider Unavailabl e None Primary Care Provider Unavailnikole e Eva Mckenna RN Unavailable [phone] Maya Goyal MD Unavailable Unavailable Maya Goyal MD Unavailable Unavailable Mehdi Sen MD Unavailable [phone] Erlin Delcid MD Unavailable [phone] [facility] Unavailable [phone] [facility] Unavailable [phone] Mehdi BassM Unavailable [phone] [facility] Unavailable [phone] Maya Goyal MD Unavailable Unavailable No Ref-Primary, Physician Primary Care Provider Mehdi BassM Unavailable [phone] [facility] Unavailable Encounter Details Date Type Department Care Team (Late st Contact Info) Description 12/15/2002 [facility] [address] [facility] [address] [place] [address] Maya Goyal MD INACTIVE IN [place] 08/23/2024 ER ENC (Primary Dx) Social History [...] Sex Assigned at Male 09/17/2018 5:00 PM MACHINE SHOP HELPER Legal Sex Male 3:11 AM MACHINE SHOP HELPER Gender Identity Male 09/17/2018 5:00 PM MACHINE SHOP HELPER Sexual Orientation Straight 09/17/2018 5: 00 PM MACHINE SHOP HELPER documented as of this encounter Progress Notes * 12/15/2002 11:59 PM [id number] 00:00 Emergency Department Encounter-[facility] TRACY BYRNE) [Entered: 00:00 Glove Turner And Former Automatic ([facility])] : 56 CHIEF COMPLAINT: I was at work and a tow bar dropped on my arm. HISTORY OF PRESENT ILLNESS: Rafa Hickey is a 42-year-old white male who comes to us from [facility] [employer] where he was working out on the [employer]. Apparently his friend pulled the tug away [...] right-handed. SOCIAL HISTORY: The patient has worked [employer] for the last eighteen years. REVIEW OF [...] up and follow-up in two days at [facility] f or clearance for work. He may be able to return to light duty with his left hand. He was given appr opriate work slips to follow-up. DIAGNOSIS: 1) Soft tissue trauma, right wrist with questionable raysa icular fracture, under evaluation. 2) Workman's Comp related. _ TRACY BYRNE MD MT: Document: [id number] Electronically filed by Stella Paul 12/18 11:45 AM documented in this encounter Plan of Treatment Not on file documented as of this encounter Visit Diagnoses Diagnosis ER ENC- Primary documented in this encounter Additional Health Concerns Infection Onset Date Last Indicated Resolved Time COVID-19 08/27/2020 08/27/2020 09/17/2020 11:4 0 PM MACHINE SHOP HELPER documented as of this encounter Care Teams Memory Care Program Resident Relationship Specialty Start Date End Date Maya Goyal MD PCP - General 05/03/04 11/14/22 None PCP - General 12/01/02 05/02/04 Maya Goyal MD INACTIVE IN [place] 08/23/2024 PCP - Assigned PCP 10/22/09 11/26/18 No Ref-Primary, Physician PCP - General 11/15/22 Eva Mckenna RN [facility] Clothes Wringer Primary Care - CC 02/19/18 Maya Goyal MD Assigned PCP 06/27/12 10/17/23 Mehdi Sen MD [address] [place] [address] Assigned Musculoskeletal Provider 07/16/20 12/18/20 Erlin Delcid MD [address] [id number] Assigned Surgical Provider 09/12/20 [facility] [address] [place] [address] [place] [address] Pharmacist Pharmacist 11/09/20 12/06/20 [facility] [address] [place] [address] Pharmacist Pharmacist 11/30/20 12/06/20 Mehdi Bass DPM [id number] [place] [address] [place] [address] Assigned Musculoskeletal Provider 08/14/21 10/27/22 [facility] [address] [place] [address] Assigned MTM Pharmacist 03/18/22 Maya Goyal MD Assigned Pain Medication Provider 10/02/22 03/23/23 Mehdi Bass DPM [address] [address] [facility] [address] [place] [address] Assigned Surgical Provider 10/28/22 [facility] [address] Assigned PCP 10/18/23 documented as of this encounter
--- OUTSIDE RECORDS SUMMARY | 2024-11-23 19:09 | XMS_ITS | Encounter Summary ---
Author Organization [facility] Address [address] [place] [address]. [place] [address] Care Team Providers Care Associate Director Finance Name Role Phone Maya Goyal MD Primary Care Provider Unavailabl Maya Stallworth MD Unavailable Unavailable Mehdi Sen MD Unavailable [phone] Erlin Delcid MD Unavailable [phone] Elicia Bedoya [facility] Unavailable [phone] Kae Whipple [facility] Unavailable Mehdi Bass DPM Unavailable [phone] Kae Whipple [facility] Unavailable [phone] Maya Goyal MD Unavailable Unavailable No Ref-Primary, Physician Primary Care Provider Mehdi Bass DPM Unavailable [phone] [facility] Unavailable Reason for Visit * Reason Onset Date Comments Appointment 08/24/2020 Referral to Urol ogy Encounter Details Date Type Department Care Team (Late st Contact Info) Description 08/24/2020 [facility] [address] [place] [address] Unknown Appointment (Referral to Urology) [...] Sex Assigned at Male 09/17/2018 5:00 PM CONSUMER SAFETY OFFICER Legal Sex Male 3:11 AM CONSUMER SAFETY OFFICER Gender Identity Male 09/17/2018 5:00 PM CONSUMER SAFETY OFFICER Sexual Orientation Straight 09/17/2018 5: 00 PM CONSUMER SAFETY OFFICER COVID-19 Exposure Response Date Recorded In the last month, have you been in contact with someone who was confirmed or suspected to have Coronavirus / COVID-19? No / Unsure 08/27/2020 11:58 AM CONSUMER SAFETY OFFICER documented as of this encounter Miscellaneous Notes * Telephone Encounter - Smitha Harris - 08/24/2020 1:34 PM CST [facility] Call Center Phone Message May a detailed [...] Thanks! Action Taken: Message routed to: Other: [facility] Travel Screening: Not Applicable UMER SAFETY OFFICER documented in this encounter Plan of Treatment Not on file documented as of this encounter Visit Diagnoses Not on filedocumented in this encounter Additional Health Concerns Infection Onset Date Last Indicated Resolved Time COVID-19 08/27/2020 08/27/2020 09/17/2020 11:4 0 PM CONSUMER SAFETY OFFICER Assessment Noted Time PHQ-9 Depression Total Score: 10 020 8:55 AM CDT documented as of this encounter Care Teams Associate Director Finance Relationship Specialty Start Date End Date Maya Goyal MD PCP - General 05/03/04 11/14/22 No Ref-Primary, Physician PCP - General 11/15/22 Maya Goyal MD Assigned PCP 06/27/12 10/17/23 Mehdi Sen MD [address] [place] [address] Assigned Musculoskeletal Provider 07/16/20 12/18/20 Erlin Delcid MD [address] [facility] [address] [place] [address] Assigned Surgical Provider 09/12/20 Elicia Bedoya [facility] [address] [place] [address] 812 [place] [address] Pharmacist Pharmacist 11/09/20 12/06/20 Kae Whipple [facility] [address] [place] [address] Pharmacist Pharmacist 11/30/20 12/06/20 Mehdi Bass DPM [address] [facility] [address] [place] [address] Assigned Musculoskeletal Provider 08/14/21 10/27/22 Kae Whipple [facility] [address] [place] [address] Assigned MTM Pharmacist 03/18/22 Maya Goyal MD Assigned Pain Medication Provider 10/02/22 03/23/23 Mehdi Bass DPM [address] [address] [facility] [address] [place] [address] Assigned Surgical Provider 10/28/22 [facility] [address] [place] [address] Assigned PCP 10/18/23 documented as of this encounter
--- OUTSIDE RECORDS SUMMARY | 2024-11-23 19:09 | XMS_ITS | Clinical Summary ---
Author Organization [facility] Address [address] [place] [address] Care Team Providers Care Booster Station Operator Name Role Phone Shar Hoff MD Unavailable [phone] Doctor, No Primary Care Provider Unavailabl e [...] Screening 1958 Depression Assessment (PHQ-2) 1959 Pneumococcal 50+ Years (1 of 2 - PCV) 1977 RSV Vaccines (1 - Risk 60-74 years 1-dose series) 2018 HgbA1C 07/14/2021 04/13/2021 Yearly Review of HCD 07/11/2022 07/11/2021, 03/29/2021, 02/02/2021 Medicare Wellness Visit 06/28/2023 06/28/2022 Creatinine 04/25/2024 04/25/2023, 03/26, 04/13/2021, Additional history exists COVID-19 Vaccine ( - [...] - 145 mMol/L 07/19/2016 5:16 AM CDT [facility] Potassium 4.0 3.5 - 5.1 mMol/L 07/19/2016 5:16 AM CDT [facility] Chloride 104 98 - 112 mMol/L 07/19/2016 5:16 AM CDT [facility] Carbon Dioxide 25 21 - 32 mMol/L 07/19/2016 5:16 AM CDT [facility] BUN (Urea Nitro) 17 7 - 24 mg/dL 07/19/2016 5:16 AM [facility] Creatinine 0.83 0.70 - 1.30 mg/dL 07/19/2016 5:16 AM T [facility] Est GFR (CKD-EPI) >60 >60 mL/min 07/19/2016 5:16 AM T [facility] EST GFR IF AM >60 >60 mL/min 07/19/2016 5:16 AM T [facility] Glucose 99 74 - 106 mg/dL 07/19/2016 5:16 AM [facility] Calcium, Serum 8.4(L) 8.5 - 10.1 mg/dL 07/19/2016 5:16 AM T [facility] Anion Gap 11.0 0.0 - 15.0 mMol/L 07/19/2016 5:16 AM [facility] Blood 07/19/2016 4:45 AM CDT 07/19/2016 4:48 AM CDT Brigette Pena MD CHEMISTRY ORDERABLE Final Re sult [facility] [address] [place] [address] from Last 3 Months or Most Recently Relevant to Health Maintenance Insurance [facility] Address: [facility] [id number] [place] [id number] [facility] MEDICARE ADVANTAGE Advance Directives For more information, please contact: [phone] * Full Code (Latest Code Status on File) Date Activated Date Inactivated Comments 07/19/2016 6:14 AM 07/19/2016 4:02 PM Question Answer Comments How was code status determined? Patient Care Teams Booster Station Operator Relationship Specialty Start Date End Date Doctor, No No ad PCP - General Radiology 01/01/23 Shar Hoff MD [address] [place] [address] [address] [place] [address] Neurology 01/01/23
--- OUTSIDE RECORDS SUMMARY | 2024-11-23 19:09 | XMS_ITS | Encounter Summary ---
Author Organization [facility] Address [address] [place] [address]. [place] [address] Care Team Providers Care Wool Mixer Name Role Phone Maya Goyal MD Primary Care Provider Unavailabl Maya Stallworth MD Unavailable Unavailable Mehdi Sen MD Unavailable [phone] Erlin Delcid MD Unavailable Elicia Bedoya [facility] Unavailable [phone] Kae Whipple [facility] Unavailable [phone] Mehdi BassM Unavailable [phone] Kae Whipple [facility] Unavailable Maya Goyal MD Unavailable Unavailable No Ref-Primary, Physician Primary Care Provider Mehdi Bass DPM Unavailable [phone] [facility] Unavailable Reason for Visit * Reason Comments Medication Refill Encounter Details Date Type Department Care Team (Late st Contact Info) Description 03/22/2020 [facility] [address] [place] [address] Maya Goyal MD INACTIVE IN [place] 08/23/2024 Medication Refill Social History Tobacco Use [...] Sex Assigned at Male 09/17/2018 5:00 PM CLAM SORTER Legal Sex Male 3:11 AM CLAM SORTER Gender Identity Male 09/17/2018 5:00 PM CLAM SORTER Sexual Orientation Straight 09/17/2018 5: 00 PM CLAM SORTER COVID-19 Exposure Response Date Recorded In the last month, have you been in contact with someone who was confirmed or suspected to have Coronavirus / COVID-19? No / Unsure 03/12/2020 11:08 AM CDT documented as of this encounter Miscellaneous Notes * Telephone Encounter - Leah Narvaez RPH - 03/23/2020 4:44 PM CDT Prescription approved per [facility] Refill Protocol. documented in this encounter Plan of Treatment Not on file documented as of this encounter Visit Diagnoses Diagnosis CKD (chronic kidney disease) stage 1, GFR 90 ml/min or greater Chronic kidney disease, Stage I Benign essential hypertension Essential hypertension, benign documented in this encounter Additional Health Concerns Infection Onset Date Last Indicated Resolved Time COVID-19 08/27/2020 08/27/2020 09/17/2020 11:4 0 PM CLAM SORTER Assessment Noted Time PHQ-9 Depression Total Score: 9 11/19/19 20 7:03 AM CLAM SORTER documented as of this encounter Care Teams Wool Mixer Relationship Specialty Start Date End Date Maya Goyal MD PCP - General 05/03/04 11/14/22 No Ref-Primary, Physician PCP - General 11/15/22 Maya Goyal MD Assigned PCP 06/27/12 10/17/23 Mehdi Sen MD [address] [place] [address] Assigned Musculoskeletal Provider 07/16/20 12/18/20 Erlin Delcid MD [address] [address] Assigned Surgical Provider 09/12/20 Elicia [facility]oya, [facility] [address] [place] [address] 812 [place] [address] Pharmacist Pharmacist 11/09/20 12/06/20 Kae Whipple [facility] [address] [place] [address] Pharmacist Pharmacist 11/30/20 12/06/20 Mehdi Bass DPM [address] [place] [address] [place] [address] Assigned Musculoskeletal Provider 08/14/21 10/27/22 Kae Whipple [facility] [address] [place] [address] Assigned MTM Pharmacist 03/18/22 Maya Goyal MD Assigned Pain Medication Provider 10/02/22 03/23/23 Mehdi Bass DPM [address] [place] [address] [place] [address] Assigned Surgical Provider 10/28/22 [facility] [address] [place] [address] Assigned PCP 10/18/23 documented as of this encounter
--- OUTSIDE RECORDS SUMMARY | 2024-11-23 19:09 | XMS_ITS | Encounter Summary ---
Author Organization [facility] Address [address] [place] [address]. [place] [address] Care Team Providers Care Automobile Carpets Molder Name Role Phone Maya Goyal MD Primary Care Provider UnavailMaya Vazquez MD Unavailable Unavailable Erlin Delcid MD Unavailable [phone] Mehdi Bass DPM Unavailable [phone] Kae Whipple [facility] Unavailable [phone] Maya Goyal MD Unavailable Unavailable No Ref-Primary, Physician Primary Care Provider Mehdi Bass DPM Unavailable [phone] [facility] Unavailable Encounter Details Date Type Department Care Team (Late st Contact Info) Description 01/12/2022 [facility] [address] [place] [address] [place] [address] Maya Goyal MD INACTIVE IN [place] 08/23/2024 Social History Tobacco Use Types Packs/Day Years [...] Assigned at Male 09/17/2018 5:00 PM SALES ASSOCIATE Legal Sex Male 3:11 AM SALES ASSOCIATE Gender Identity Male 09/17/2018 5:00 PM SALES ASSOCIATE Sexual Orientation Straight 09/17/2018 5: 00 PM SALES ASSOCIATE documented as of this encounter Plan of Treatment Not on file documented as of this encounter Visit Diagnoses Not on filedocumented in this encounter Additional Health Concerns Assessment Noted Time PHQ-9 Depression Total Score: 10 021 2:58 PM CDT documented as of this encounter Care Teams Automobile Carpets Molder Relationship Specialty Start Date End Date Maya Goyal MD PCP - General 05/03/04 11/14/22 No Ref-Primary, Physician PCP - General 11/15/22 Maya Goyal MD Assigned PCP 06/27/12 10/17/23 Erlin Delcid MD [address] [address] Assigned Surgical Provider 09/12/20 [place] [address] [address] [place] [address] Assigned Musculoskeletal Provider 08/14/21 10/27/22 Kae Whipple [facility] [address] [place] [address] Assigned MTM Pharmacist 03/18/22 Maya Goyal MD Assigned Pain Medication Provider 10/02/22 03/23/23 Mehdi Bass DPM [address] [place] [address] Assigned Surgical Provider 10/28/22 [facility] [place], [address] [address] Assigned PCP 10/18/23 documented as of this encounter
--- OUTSIDE RECORDS SUMMARY | 2024-11-23 19:09 | XMS_ITS | Encounter Summary ---
Author Organization [facility] Address [address] [place] [address]. [place] [address] Care Team Providers Care Human Capital Manager Name Role Phone Maya Goyal MD Primary Care Provider UnavailEva Brannon RN Unavailable [phone] Maya Goyal MD Unavailable Unavailable Maya Goyal MD Unavailable Unavailable Mehdi Sen MD Unavailable [phone] Erlin Delcid MD Unavailable [phone] Elicia Bedoya [facility] Unavailable [phone] Kae Whipple [facility] Unavailable [phone] Mehdi Bass DPM Unavailable [phone] Kae Whipple [facility] Unavailable [phone] Maya Goyal MD Unavailable Unavailable No Ref-Primary, Physician Primary Care Provider Mehdi Bass DPM Unavailable [phone] [facility] Unavailable Encounter Details Date Type [...] Assigned at Male 09/17/2018 5:00 PM BRICK PICKER Legal Sex Male 3:11 AM BRICK PICKER Gender Identity Male 09/17/2018 5:00 PM BRICK PICKER Sexual Orientation Straight 09/17/2018 5: 00 PM BRICK PICKER documented as of this encounter Plan of Treatment Not on file documented as of this encounter Visit Diagnoses Not on filedocumented in this encounter Additional Health Concerns Infection Onset Date Last Indicated Resolved Time COVID-19 08/27/2020 08/27/2020 09/17/2020 11:4 0 PM BRICK PICKER Assessment Noted Time PHQ-9 Depression Total Score: 14 017 11:50 AM BRICK PICKER documented as of this encounter Care Teams Human Capital Manager Relationship Specialty Start Date End Date Maya Goyal MD PCP - General 05/03/04 11/14/22 Maya Goyal MD INACTIVE IN [place] 08/23/2024 PCP - Assigned PCP 10/22/09 11/26/18 No Ref-Primary, Physician PCP - General 11/15/22 Eva Mckenna RN Clinic Rolloff Truck Driver Primary Care - CC 02/19/18 Maya Goyal MD Assigned PCP 06/27/12 10/17/23 Mehdi Sen MD [address] [place] [address] Assigned Musculoskeletal Provider 07/16/20 12/18/20 Erlin Delcid MD [address] [facility] [address] [place] [address] Assigned Surgical Provider 09/12/20 Elicia Bedoya, [facility] [address] [place] [address] 812 [place] [address] Pharmacist Pharmacist 11/09/20 12/06/20 Kae Whipple [facility] [address] [place] [address] Pharmacist Pharmacist 11/30/20 12/06/20 Mehdi Bass DPM [address] [facility] [address] [place] [address] Assigned Musculoskeletal Provider 08/14/21 10/27/22 Kae Whipple [facility] [address] [place] [address] Assigned MTM Pharmacist 03/18/22 Maya Goyal MD Assigned Pain Medication Provider 10/02/22 03/23/23 Mehdi [place]PM [id number] [address] Assigned Surgical Provider 10/28/22 [facility] [address] [place] [address] Assigned PCP 10/18/23 documented as of this encounter
--- OUTSIDE RECORDS SUMMARY | 2024-11-23 19:09 | XMS_ITS | Encounter Summary ---
Author Organization [facility] Address [address] [place] [address] Care Team Providers Care Route Sales Driver Name Role Phone Maya Goyal MD Primary Care Provider Unavailabl Maya Stallworth MD Unavailable Unavailable Mehdi Sen MD Unavailable [phone] Erlin Delcid MD Unavailable Elicia Bedoya [facility] Unavailable Kae Whipple [facility] Unavailable Mehdi BassM Unavailable [phone] Kae Whipple [facility] Unavailable [phone] Maya Goyal MD Unavailable Unavailable No Ref-Primary, Physician Primary Care Provider Mehdi Bass DPM Unavailable [phone] [facility] Unavailable Reason for Visit * Reason Onset Date Comments MyChart Communication 09/29/2020 Encounter Details Date Type Department Care Team (Latest Contact Info) Description 09/29/2020 [facility] [address] [place] [address] Maya Goyal MD INACTIVE IN [place] 08/23/2024 MyChart Communication Social History Tobacco Use Types [...] Sex Assigned at Male 09/17/2018 5:00 PM ESCROW ASSISTANT Legal Sex Male 3:11 AM ESCROW ASSISTANT Gender Identity Male 09/17/2018 5:00 PM ESCROW ASSISTANT Sexual Orientation Straight 09/17/2018 5: 00 PM ESCROW ASSISTANT COVID-19 Exposure Response Date Recorded In the last month, have you been in contact with someone who was confirmed or suspected to have Coronavirus / COVID-19? Yes 09/07/2020 1:45 PM ESCROW ASSISTANT documented as of this encounter Miscellaneous Notes * Telephone Encounter - Rukhsana Yo RN - 09/29/2020 12:06 PM CST My chart message sent by patient. My chart message sent to patient. OW ASSISTANT * Telephone Encounter - Rukhsana Yo RN - 09/29/2020 11:34 AM CST My chart message sent by patient. My chart message sent to patient. OW ASSISTANT documented in this encounter Plan of Treatment Not on file documented as of this encounter Visit Diagnoses Not on filedocumented in this encounter Additional Health Concerns Assessment Noted Time PHQ-9 Depression Total Score: 10 020 8:55 AM CDT documented as of this encounter Care Teams Route Sales Driver Relationship Specialty Start Date End Date Maya Goyal MD PCP - General 05/03/04 11/14/22 No Ref-Primary, Physician PCP - General 11/15/22 Maya Goyal MD Assigned PCP 06/27/12 10/17/23 Mehdi Sen MD [address] [place] [address] [place] [address] Assigned Musculoskeletal Provider 07/16/20 12/18/20 Erlin Delcid MD [address] [facility] [address] [place] [address] Assigned Surgical Provider 09/12/20 Elicia Bedoya, [facility] [address] [place] [address] 812 [place] [address] Pharmacist Pharmacist 11/09/20 12/06/20 Kae Whipple [facility] [address] [place] [address] Pharmacist Pharmacist 11/30/20 12/06/20 Mehdi Bass DPM [id number] [place] [address] [place] [address] Assigned Musculoskeletal Provider 08/14/21 10/27/22 Kae Whipple [facility] [address] [place] [address] Assigned MTM Pharmacist 03/18/22 Maya Goyal MD Assigned Pain Medication Provider 10/02/22 03/23/23 Mehdi Bass DPM [address] [employer] [facility] [address] [place] [address] Assigned Surgical Provider 10/28/22 [facility] [address] [place] [address] Assigned PCP 10/18/23 documented as of this encounter
--- OUTSIDE RECORDS SUMMARY | 2024-11-23 19:09 | XMS_ITS | Encounter Summary ---
Author Organization [facility] Address [address] [place] [address]. [place] [address] Care Team Providers Care Transition Nurse Name Role Phone Maya Goyal MD Primary Care Provider UnavailMaya Vazquez MD Unavailable Unavailable Erlin Delcid MD Unavailable [phone] Mehdi Bass DPM Unavailable [phone] Kae Whipple [facility] Unavailable Maya Goyal MD Unavailable Unavailable No Ref-Primary, Physician Primary Care Provider Mehdi Bass DPQuita Unavailable [phone] [facility] Unavailable Reason for Visit * Reason Onset Date Comments MyChart Communication 11/09/2021 Encounter Details Date Type Department Care Team (Latest Contact Info) Description 11/09/2021 MyC Medical Advice [place] [address] [place] [phone] Maya Goyal MD INACTIVE IN [place] 08/23/2024 MyChart Communication Social History Tobacco Use [...] Sex Assigned at Male 09/17/2018 5:00 PM CONTINUOUS MINER Legal Sex Male 3:11 AM CONTINUOUS MINER Gender Identity Male 09/17/2018 5:00 PM CONTINUOUS MINER Sexual Orientation Straight 09/17/2018 5: 00 PM CONTINUOUS MINER COVID-19 Exposure Response Date Recorded In the last month, have you been in contact with someone who was confirmed or suspected to have Coronavirus / COVID-19? No / Unsure 11/10/2021 9:52 AM CONTINUOUS MINER documented as of this encounter Miscellaneous Notes * Telephone Encounter - Rukhsana Bowden RN - 11/09/2021 12:58 PM CONTINUOUS MINER See Espressi message. Sent his refill request encounter to Dr Goyal. INUOUS MINER documented in this encounter Plan of Treatment Not on file documented as of this encounter Visit Diagnoses Not on filedocumented in this encounter Additional Health Concerns Assessment Noted Time PHQ-9 Depression Total Score: 10 021 2:58 PM CDT documented as of this encounter Care Teams Transition Nurse Relationship Specialty Start Date End Date Maya Goyal MD PCP - General 05/03/04 11/14/22 No Ref-Primary, Physician PCP - General 11/15/22 Maya Goyal MD Assigned PCP 06/27/12 10/17/23 Erlin Delcid MD [address] [place] [address] Assigned Surgical Provider 09/12/20 Mehdi Bass DPM [address] [facility] [address] [place] [address] Assigned Musculoskeletal Provider 08/14/21 10/27/22 Kae Whipple R[facility] [address] [place] [address] Assigned MTM Pharmacist 03/18/22 Maya Goyal MD Assigned Pain Medication Provider 10/02/22 03/23/23 Mehdi Bass DPM [address] [facility] [address] [place], [place] [address] Assigned Surgical Provider 10/28/22 [facility] [address] [place], [place] [address] Assigned PCP 10/18/23 documented as of this encounter
--- OUTSIDE RECORDS SUMMARY | 2024-11-23 19:09 | XMS_ITS ---
Author Organization [facility] Address [address] [place] [address] [address] [place] [address] Care Team Providers Care Steel Melter Name Role Phone Caryl Shi Primary Care Provider Karlo Hewitt [phone] Catia Swift MD Unavailable Unavailable REASON FOR VISIT F/u week of 01/05--JF BV Encounters Encounter Location Date Provider Diagnosis [facility] [address] [place] [address] [address] [place] [address] 11/06/2024 Karlo Ortiz Plan Of Treatment No Information Progress Notes * Rafa RIVAS JrDOB: 8 (64 yo M)Acc No.[id number]:11/06/2024 Patient: O Rafa SANDHU Jr :1960 A ge:64 Y S ex:Male Phone: Address:[facility] [place] [address] * * Date:
--- OUTSIDE RECORDS SUMMARY | 2024-11-23 19:09 | XMS_ITS | Encounter Summary ---
Author Organization [facility] Address [address] [place] [address]. [place] [address] Care Team Providers Care Drywall Professional Name Role Phone Maya Goyal MD Primary Care Provider UnavailMaya Vazquez MD Unavailable Unavailable Erlin Delcid MD Unavailable [phone] Mehdi Bass DPM Unavailable [phone] Kae Whipple [facility] Unavailable [phone] Maya Goyal MD Unavailable Unavailable No Ref-Primary, Physician Primary Care Provider Mehdi Bass DPM Unavailable [phone] [facility] Unavailable Reason for Visit * Reason Comments Medication Refill Encounter Details Date Type Department Care Team (Late st Contact Info) Description 09/25/2021 [facility] [address] [place] [phone] Maya Goyal MD INACTIVE IN [place] 08/23/2024 Medication Refill Social History Tobacco Use [...] Sex Assigned at Male 09/17/2018 5:00 PM LOCOMOTIVE INSPECTOR Legal Sex Male 3:11 AM LOCOMOTIVE INSPECTOR Gender Identity Male 09/17/2018 5:00 PM LOCOMOTIVE INSPECTOR Sexual Orientation Straight 09/17/2018 5: 00 PM LOCOMOTIVE INSPECTOR documented as of this encounter Miscellaneous Notes * Telephone Encounter - Rukhsana oY RN - 09/27/2021 3:57 PM CST Prescription approved per [facility] Refill Protocol. MOTIVE INSPECTOR documented in this encounter Plan of Treatment Not on file documented as of this encounter Visit Diagnoses Diagnosis Type 2 diabetes mellitus with stage 1 chronic kidney disease, without long-term current use of insulin (H) documented in this encounter Additional Health Concerns Assessment Noted Time PHQ-9 Depression Total Score: 10 021 2:58 PM CDT documented as of this encounter Care Teams Drywall Professional Relationship Specialty Start Date End Date Maya Goyal MD PCP - General 05/03/04 11/14/22 No Ref-Primary, Physician PCP - General 11/15/22 Maya Goyal MD Assigned PCP 06/27/12 10/17/23 Erlin Delcid MD [address] [address] Assigned Surgical Provider 09/12/20 Mehdi Bass DPM [address] [facility] [address] [place] [address] Assigned Musculoskeletal Provider 08/14/21 10/27/22 Kae Whipple [facility] [address] [place] [address] Assigned MTM Pharmacist 03/18/22 Maya Goyal MD Assigned Pain Medication Provider 10/02/22 03/23/23 Meh[place] [address] [facility] [address] [place], [place] [address] Assigned Surgical Provider 10/28/[address] [address] Assigned PCP 10/18/23 documented as of this encounter
--- OUTSIDE RECORDS SUMMARY | 2024-11-23 19:09 | XMS_ITS ---
Author Organization [facility] Address [address] [place] [address] [address] [place] [address] Care Team Providers Care Mathematical Technician Name Role Phone Caryl Shi Primary Care Provider Karlo Hewitt Unavailable [phone] Catia Swift MD Unavailable Unavailable Michael Suárez Unavailable [phone] REASON FOR VISIT FYI - lost or stolen medications Encounters Encounter Location Date Provider Diagnosis [facility] [address] [place] [address] [address] [facility] [place] [address] 11/14/2024 Michael Suárez Plan Of Treatment No Information Progress Notes * Rafa RIVAS JrDOB: 8 (64 yo M)Acc No.[id number]:11/14/2024 Patient: Yamileth SANDHU Rafa Beth :1960 A ge:64 Y S ex:Male Phone: Address:[address] [place] [address] * true * Date: Generated for Gomezi ng/Faalexg/eTransmitting on: 0 11/23/2024 07:08 PM OIL PROSPECTING OBSERVER
--- OUTSIDE RECORDS SUMMARY | 2024-11-23 19:09 | XMS_ITS | Encounter Summary ---
Author Organization [facility] Address [address] [place] [address]. [place] [address] Care Team Providers Care Bracelet And Brooch Maker Name Role Phone Maya Goyal MD Primary Care Provider UnavailMaya Vazquez MD Unavailable Unavailable Erlin Delcid MD Unavailable [phone] Mehdi Bass DPM Unavailable [phone] Kae Whipple [facility] Unavailable Maya Goyal MD Unavailable Unavailable No Ref-Primary, Physician Primary Care Provider Mehdi Bass DPM Unavailable [phone] [facility] Unavailable Reason for Visit * Reason Comments Medication Refill Encounter Details Date Type Department Care Team (Late st Contact Info) Description 12/05/2021 [facility] [address] [place] [phone] Maya Goyal MD INACTIVE IN [place] 08/23/2024 Medication Refill Social History Tobacco Use [...] Sex Assigned at Male 09/17/2018 5:00 PM ELECTRONICS PROCESSOR Legal Sex Male 3:11 AM ELECTRONICS PROCESSOR Gender Identity Male 09/17/2018 5:00 PM ELECTRONICS PROCESSOR Sexual Orientation Straight 09/17/2018 5: 00 PM ELECTRONICS PROCESSOR COVID-19 Exposure Response Date Recorded In the last month, have you been in contact with someone who was confirmed or suspected to have Coronavirus / COVID-19? No / Unsure 11/17/2021 2:07 PM ELECTRONICS PROCESSOR documented as of this encounter Miscellaneous Notes * Telephone Encounter - Celestino Latham RN - 12/06/2021 6:42 PM CDT Prescription approved per [facility] Refill Protocol. documented in this encounter [...] documented as of this encounter Care Teams Bracelet And Brooch Maker Relationship Specialty Start Date End Date Maya Goyal MD PCP - General 05/03/04 11/14/22 No Ref-Primary, Physician PCP - General 11/15/22 Maya Goyal MD Assigned PCP 06/27/12 10/17/23 Erlin Delcid MD [address] [place] [address] Assigned Surgical Provider 09/12/20 Mehdi Bass DPM [address] [facility] [address] [place] [address] Assigned Musculoskeletal Provider 08/14/21 10/27/22 Kae Whipple [facility] [address] [place] [address] Assigned MTM Pharmacist 03/18/22 Maya Goyal MD Assigned Pain Medication Provider 10/02/22 03/23/23 Mehdi Bass DPM [address] [facility] [address] [place] [address] Assigned Surgical Provider 10/28/22 [facility] [address] [place] [address] Assigned PCP 10/18/23 documented as of this encounter
--- OUTSIDE RECORDS SUMMARY | 2024-11-23 19:09 | XMS_ITS | Encounter Summary ---
Author Organization [facility] Address [address] [place] [address]. [place] [address] Care Team Providers Care Equipment Maintenance Superintendent Name Role Phone Maya Goyal MD Primary Care Provider Unavailabl Maya Stallworth MD Unavailable Unavailable Mehdi Sen MD Unavailable [phone] Erlin Delcid MD Unavailable [phone] Elicia Bedoya [facility] Unavailable [phone] Kae Whipple [facility] Unavailable Mehdi Bass DPM Unavailable [phone] Kae Whipple [facility] Unavailable [phone] Maya Goyal MD Unavailable Unavailable No Ref-Primary, Physician Primary Care Provider Mehdi Bass DPM Unavailable [phone] [facility] Unavailable Reason for Visit * Reason Onset Date Comments Referral 05/02/2019 New Eval Encounter Details Date Type Department Care Team (Late st Contact Info) Description 05/02/2019 [facility] [place] [id number] [facility] [address] [place] [address] [facility] Social History [...] Sex Assigned at Male 09/17/2018 5:00 PM RN TELE Legal Sex Male 3:11 AM RN TELE Gender Identity Male 09/17/2018 5:00 PM RN TELE Sexual Orientation Straight 09/17/2018 5: 00 PM RN TELE documented as of this encounter Miscellaneous Notes * Telephone Encounter - Stephanie Rock - 05/02/2019 2:18 PM CDT Referral received from Marli Velasco NP at [facility] for new patient evaluation andmanagement. Diagnosis of Lumbar DDD. Patient previously seen by Jenn Gaspar on 12/19/18 -- can schedule a follow up. Stephanie Rock Extruder Operator [facility] documented in this encounter Plan of Treatment Not on file documented as of this encounter Visit Diagnoses Not on filedocumented in this encounter Additional Health Concerns Infection Onset Date Last Indicated Resolved Time COVID-19 08/27/2020 08/27/2020 09/17/2020 11:4 0 PM RN TELE Assessment Noted Time PHQ-9 Depression Total Score: 4 09/23/20 18 2:33 PM RN TELE documented as of this encounter Care Teams Equipment Maintenance Superintendent Relationship Specialty Start Date End Date Maya Goyal MD PCP - General 05/03/04 11/14/22 No Ref-Primary, Physician PCP - General 11/15/22 Maya Goyal MD Assigned PCP 06/27/12 10/17/23 Mehdi Sen MD [address] [place] [address] Assigned Musculoskeletal Provider 07/16/20 12/18/20 Erlin Delcid MD [address] [place] [address] Assigned Surgical Provider 09/12/20 Elicia Bedoya [facility] [address] [facility] [address] [place] [address] Pharmacist Pharmacist 11/09/20 12/06/20 Kae Whipple [facility] [address] [place] [address] Pharmacist Pharmacist 11/30/20 12/06/20 Mehdi Bass DPM [id number] [place] [address] [place] [address] Assigned Musculoskeletal Provider 08/14/21 10/27/22 Kae Whipple [facility] [address] [place] [address] Assigned MTM Pharmacist 03/18/22 Maya Goyal MD Assigned Pain Medication Provider 10/02/22 03/23/23 Mehdi Bass DPM [address] [place] [address] [place] [address] Assigned Surgical Provider 10/28/22 [facility] [address] [place] [address] Assigned PCP 10/18/23 documented as of this encounter
--- OUTSIDE RECORDS SUMMARY | 2024-11-23 19:09 | XMS_ITS | Encounter Summary ---
Author Organization [facility] Address [address] [place] [address] Care Team Providers Care Lead Net Software Developer Name Role Phone Maya Goyal MD Primary Care Provider UnavailEva Brannon RN Unavailable [phone] Maya Goyal MD Unavailable Unavailable Maya Goyal MD Unavailable Unavailable Mehdi Sen MD Unavailable [phone] Erlin Delcid MD Unavailable [phone] Elicia Bedoya [facility] Unavailable [phone] Kae Whipple [facility] Unavailable Mehdi Bass DPM Unavailable [phone] Kae Whipple [facility] Unavailable [phone] Maya Goyal MD Unavailable Unavailable No Ref-Primary, Physician Primary Care Provider Mehdi BassM Unavailable [phone] [facility] Unavailable Encounter Details Date Type Department Care Team (Late st Contact Info) Description 08/26/2006 [facility] Malia Devlin [address] [place] [address] [place] [address] Maya Goyal MD INACTIVE IN [place] 08/23/2024 Social History Tobacco Use Types Packs/Day Years Used Date Smoking Tobacco: Every Day Cigarettes 0.5 20 Alcohol Use Standard Drinks/Week Comments Yes 0 (1 standard drink = 0.6 oz pur e alcohol) Social once every 3 months Sex and Gender Information Value Date Recorded Sex Assigned at Male 09/17/2018 5:00 PM CONE FORMER Legal Sex Male 3:11 AM CONE FORMER Gender Identity Male 09/17/2018 5:00 PM CONE FORMER Sexual Orientation Straight 09/17/2018 5: 00 PM CONE FORMER documented as of this encounter Plan of Treatment Not on file documented as of this encounter Visit Diagnoses Not on filedocumented in this encounter Additional Health Concerns Infection Onset Date Last Indicated Resolved Time COVID-19 08/27/2020 08/27/2020 09/17/2020 11:4 0 PM CONE FORMER documented as of this encounter Care Teams Lead Net Software Developer Relationship Specialty Start Date End Date Maya Goyal MD PCP - General 05/03/04 11/14/22 Maya Goyal MD INACTIVE IN [place] 08/23/2024 PCP - Assigned PCP 10/22/09 11/26/18 No Ref-Primary, Physician PCP - General 11/15/22 Eva Mckenna RN [facility] Boot Lace Cutter Machine Primary Care - CC 02/19/18 Maya Goyal MD Assigned PCP 06/27/12 10/17/23 Mehdi Sen MD [address] [place], [place] [address] Assigned Musculoskeletal Provider 07/16/20 12/18/20 Erlin Delcid MD [address] [address] Assigned Surgical Provider 09/12/20 Elicia Bedoya, [facility] [address] [place] [address] [address] [place], [place] [id number] Pharmacist Pharmacist 11/09/20 12/06/20 Kae Whipple [facility] [address] [place] [address] Pharmacist Pharmacist 11/30/20 12/06/20 Mehdi Bass DPM [address] [place] [address] [address] [place] [address] Assigned Musculoskeletal Provider 08/14/21 10/27/22 Kae Whipple [facility] [address] [place] [address] Assigned MTM Pharmacist 03/18/22 Maya Goyal MD Assigned Pain Medication Provider 10/02/22 03/23/23 Mehdi Bass DPM [id number] [place] [address] [place] [address] Assigned Surgical Provider 10/28/22 [facility] [address] [place] [address] Assigned PCP 10/18/23 documented as of this encounter
== END 2024-11-23 19:04 | disposition home or self-care (01) ==
LOC: ED 19:04
PROVIDERS: Emergency Provider Family Medicine; PCP Family Medicine
DX: H60.92 Unspecified otitis externa, left ear (principal)
CPT/HCPCS: 99283

== ENCOUNTER 2024-12-16 09:45 | Outpatient (CLI) | payer MEDICARE, SELFPAY | END 2024-12-16 09:46 | disposition home or self-care (01) | LOC: INJ CL 09:46 | PROVIDERS: PCP Family Medicine; Visit Provider Family Medicine | DX: M54.16 Radiculopathy, lumbar region (principal); M51.369 Other intervertebral disc degeneration, lumbar region without mention of lumbar back pain or lower extremity pain | CPT/HCPCS: 64483; J1100; Q9966 ==

== ENCOUNTER 2025-02-25 07:49 | Outpatient (CLI) | payer MEDICARE, SELFPAY | END 2025-02-25 07:50 | disposition home or self-care (01) | LOC: WOUND 07:50 | PROVIDERS: PCP Family Medicine; Visit Provider Nurse Practitioner Family | DX: E11.621 Type 2 diabetes mellitus with foot ulcer (principal); L97.512 Non-pressure chronic ulcer of other part of right foot with fat layer exposed; L97.511 Non-pressure chronic ulcer of other part of right foot limited to breakdown of skin; S80.211A Abrasion, right knee, initial encounter; E11.22 Type 2 diabetes mellitus with diabetic chronic kidney disease; N18.32 Chronic kidney disease, stage 3b; Z79.4 Long term (current) use of insulin; Z79.84 Long term (current) use of oral hypoglycemic drugs | CPT/HCPCS: 97597; G0463 ==

== ENCOUNTER 2025-03-05 15:10 | Outpatient (CLI) | payer MEDICARE, SELFPAY | END 2025-03-05 15:11 | disposition home or self-care (01) | LOC: WOUND 15:10 | PROVIDERS: PCP Family Medicine; Visit Provider Nurse Practitioner Family | DX: E11.621 Type 2 diabetes mellitus with foot ulcer (principal); L97.512 Non-pressure chronic ulcer of other part of right foot with fat layer exposed; S81.811A Laceration without foreign body, right lower leg, initial encounter; E11.22 Type 2 diabetes mellitus with diabetic chronic kidney disease; N18.32 Chronic kidney disease, stage 3b; Z79.4 Long term (current) use of insulin; Z79.84 Long term (current) use of oral hypoglycemic drugs | CPT/HCPCS: 97597; G0463 ==

== ENCOUNTER 2025-03-12 15:22 | Outpatient (CLI) | payer MEDICARE, SELFPAY | END 2025-03-12 15:23 | disposition home or self-care (01) | LOC: WOUND 15:22 | PROVIDERS: PCP Family Medicine; Visit Provider Nurse Practitioner Family | DX: E11.621 Type 2 diabetes mellitus with foot ulcer (principal); L97.512 Non-pressure chronic ulcer of other part of right foot with fat layer exposed; S80.811A Abrasion, right lower leg, initial encounter; Z79.4 Long term (current) use of insulin; Z79.84 Long term (current) use of oral hypoglycemic drugs; E11.22 Type 2 diabetes mellitus with diabetic chronic kidney disease; N18.32 Chronic kidney disease, stage 3b | CPT/HCPCS: 97597 ==

== ENCOUNTER 2025-03-19 14:34 | Outpatient (CLI) | payer MEDICARE, SELFPAY | END 2025-03-19 14:35 | disposition home or self-care (01) | LOC: WOUND 14:34 | PROVIDERS: PCP Family Medicine; Visit Provider Nurse Practitioner Family | DX: S80.811A Abrasion, right lower leg, initial encounter (principal); E11.621 Type 2 diabetes mellitus with foot ulcer; L97.522 Non-pressure chronic ulcer of other part of left foot with fat layer exposed; E11.22 Type 2 diabetes mellitus with diabetic chronic kidney disease; N18.32 Chronic kidney disease, stage 3b; Z79.4 Long term (current) use of insulin; Z79.84 Long term (current) use of oral hypoglycemic drugs | CPT/HCPCS: 11042 ==

== ENCOUNTER 2025-03-26 14:59 | Outpatient (CLI) | payer MEDICARE, SELFPAY | END 2025-03-26 15:00 | disposition home or self-care (01) | LOC: WOUND 14:59 | PROVIDERS: PCP Family Medicine; Visit Provider Physician Assistant | DX: E11.621 Type 2 diabetes mellitus with foot ulcer (principal); L97.521 Non-pressure chronic ulcer of other part of left foot limited to breakdown of skin; S90.812A Abrasion, left foot, initial encounter; S81.811A Laceration without foreign body, right lower leg, initial encounter; E11.22 Type 2 diabetes mellitus with diabetic chronic kidney disease; N18.32 Chronic kidney disease, stage 3b; Z79.4 Long term (current) use of insulin; Z79.84 Long term (current) use of oral hypoglycemic drugs | CPT/HCPCS: 97597 ==

== ENCOUNTER 2025-03-31 10:55 | Outpatient (CLI) | payer MEDICARE, SELFPAY | END 2025-03-31 10:56 | disposition home or self-care (01) | LOC: INJ CL 10:55 | PROVIDERS: PCP Family Medicine; Visit Provider Family Medicine | DX: M54.16 Radiculopathy, lumbar region (principal); M51.369 Other intervertebral disc degeneration, lumbar region without mention of lumbar back pain or lower extremity pain | CPT/HCPCS: 64483; J1100; Q9966 ==

== ENCOUNTER 2025-04-02 14:48 | Outpatient (CLI) | payer MEDICARE, SELFPAY | END 2025-04-02 14:49 | disposition home or self-care (01) | LOC: WOUND 14:48 | PROVIDERS: PCP Family Medicine; Visit Provider Nurse Practitioner Family | DX: S81.811A Laceration without foreign body, right lower leg, initial encounter (principal); E11.621 Type 2 diabetes mellitus with foot ulcer; L97.528 Non-pressure chronic ulcer of other part of left foot with other specified severity; E11.22 Type 2 diabetes mellitus with diabetic chronic kidney disease; N18.32 Chronic kidney disease, stage 3b; Z79.4 Long term (current) use of insulin; Z79.84 Long term (current) use of oral hypoglycemic drugs | CPT/HCPCS: G0463 ==

== ENCOUNTER 2025-04-09 15:34 | Outpatient (CLI) | payer MEDICARE, SELFPAY | END 2025-04-09 15:35 | disposition home or self-care (01) | LOC: WOUND 15:34 | PROVIDERS: PCP Family Medicine; Visit Provider Nurse Practitioner Family | DX: S81.811D Laceration without foreign body, right lower leg, subsequent encounter (principal); E11.22 Type 2 diabetes mellitus with diabetic chronic kidney disease; N18.32 Chronic kidney disease, stage 3b; Z86.31 Personal history of diabetic foot ulcer; Z79.4 Long term (current) use of insulin; Z79.84 Long term (current) use of oral hypoglycemic drugs | CPT/HCPCS: G0463 ==

== ENCOUNTER 2025-04-19 14:35 | Emergency (ER) | payer MEDICARE, SELFPAY ==
--- OUTSIDE RECORDS SUMMARY | 2025-03-19 08:45 | XMS_ITS ---
Author Organization [facility] Address [address] [place] [address] [address] [place] [address] Care Team Providers Care Pick Up Operator Name Role Phone Caryl Shi Primary Care Provider UnavailKarlo Wilkins Unavailable [phone] Catia Swift MD Unavailable Unavailable Michael Suárez Unavailable [phone] Allergies No Known Allergies REASON FOR VISIT Low Back Pain, Bilateral Knee Pain Medications Medication SIG (Take, Route, Frequency, Duration) Notes Start Date End Date Status Finasteride 5 MG TAKE ONE TABLET BY MOUTH ONCE DAILY Oral; Duration: 30 Days Active DULoxetine HCl 60 MG Oral; Duration: 30 Days Active Tamsulosin HCl 0.4 MG Oral; Duration: 90 Days Active traZODone HCl 100 MG Oral; Duration: 90 Days Active oxyCODONE HCl 5 MG 1 tablet as needed Orally (ok to fill 03/19/2025) every 8-12 hours; Duration: 30 days Low back pain, unspecified M54.50, G89.29 PRINTED Active Methocarbamol 750 MG 1 tablet Orally(muscle relaxant for daytime use, Do not take with Tizanidine- only take 1 tablet at a time) Twice a day; Duration: 30 days Active UltiCare Short Pen [place] 31G X 8 MM DIRECTED; Duration: 30 Days Active Lantus SoloStar 100 UNIT/ML Subcutaneous; Duration: 17 Days Active Carvedilol 25 MG Oral; Duration: 90 Days Active amLODIPine Besylate 5 MG Oral; Duration: 90 Days Active tiZANidine HCl 4 MG 1 tablet as needed Orally once a day at bedtime; Duration: 30 days Active Spironolactone 50 MG Oral; Duration: 30 Days Active Meloxicam 7.5 MG 1 tablet Orally Once a day; Duration: 30 days Active Furosemide 20 MG Oral; Duration: 90 Days Active Social History Tobacco Use: Social History Observation Description Date Details (start date - stop date) Unknown Tobacco Use/Smoking: Question Answer Notes Are you a Uses tobacco in other forms Additional Findings: Tobacco User e-Cigarette Vital Signs Blood pressure systolic 126 mm Hg 03/19/20 25 Blood pressure diastolic 82 mm Hg 025 Height 74 in 03/19/2025 Encounters Encounter Location Date Provider Diagnosis [facility] [address] [facility] [address] [place] [address] 03/19/2025 Michael Suárez Unilateral primary osteoarthritis, right knee M17.11 ; Unilateral primary osteoarthritis, left knee M17.12 ; Spondylolysis, lumbosacral region M43.07 and Other chronic pain G89.29 Assessments Encounter Date Diagnosis (ICD Code) Assessment Notes Treatment Notes Treatment Clinical Notes Section Notes 03/19/2025 Unilateral primary osteoarthritis, right knee (ICD-10 - M17.11) 03/19/2025 Unilateral primary osteoarthritis, left knee (ICD-10 - M17.12) 03/19/2025 Spondylolysis, lumbosacral region (ICD-10 - M43.07) 03/19/2025 Other chronic pain (ICD-10 - G89.29) Rafa Calabrese) returns to clinic today for a follow-up evaluation regarding his chronic neck, low back, and bilateral knee pain. I have reviewed the [place] JUTE BAG CUTTING MACHINE OPERATOR database and did not find any inconsistencies. We discussed his current symptoms and medications. I will continue with a treatment plan consisting of medication management at this time. I have reviewed his most recent UDS, and it was consistent with his current medications. Therefore, I have refilled his oxycodone at the current dose of 5mg BID PRN as he continues to note moderate pain relief without side effects. This treatment plan was reviewed with Vinod, and he was agreeable. I will continue to monitor his progress and he will follow up in two months or sooner if needed. Plan: 1. Reviewed last OTS- consistent 2. Refill oxycodone (printed Rx) 3. Follow up in two months (TE sent to scheduling) Discharge instructions reviewed verbally. Discussed the risks/benefits of prescribed medication. The patient is aware that medication may be discontinued at any time due to poor compliance with visits, and recommended treatment and/or if patient doesn't adhere to the signed pain contract. The patient was instructed to return to the office as scheduled and call with any questions, problems or concerns. 03/19/2025 Other Kiko, Josh joel, am serving as a scribe to document services personally performed by Michael Suárez CNP, based upon my observations and the provider's statements to me. All documentation has been reviewed by the aforementioned DRUG ABUSE WORKER as well as Bakari Stringer MD, prior [...] 5 MG 1 tablet as needed Orally (ok to fill 03/19/2025) every 8-12 hours; Duration: 30 days Low back pain, unspecified M54.50, G89.29 PRINTED Treatment Notes Assessment Notes Other chronic pain Rafa Calabrese) returns to clinic today for a follow-up evaluation regarding his chronic neck, low back, and bilateral knee pain. I have reviewed the [place] JUTE BAG CUTTING MACHINE OPERATOR database and did not find any inconsistencies. We discussed his current symptoms and medications. I will continue with a treatment plan consisting of medication management at this time. I have reviewed his most recent UDS, and it was consistent with his current medications. Therefore, I have refilled his oxycodone at the current dose of 5mg BID PRN as he continues to note moderate pain relief without side effects. This treatment plan was reviewed with Vinod, and he was agreeable. I will continue to monitor his progress and he will follow up in two months or sooner if needed. Plan: 1. Reviewed last OTS- consistent 2. Refill oxycodone (printed Rx) 3. Follow up in two months (TE sent to scheduling) Discharge instructions reviewed verbally. Discussed the risks/benefits of prescribed medication. The patient is aware that medication may be discontinued at any time due to poor compliance with visits, and recommended treatment and/or if patient doesn't adhere to the signed pain contract. The patient was instructed to return to the office as scheduled and call with any questions, problems or concerns. Other I, mariah Lang serving as a scribe to document services personally performed by Michael Suárez CNP, based upon my observations and the provider's statements to me. All documentation has been reviewed by the aforementioned DRUG ABUSE WORKER as well as Bakari Stringer MD, prior to being entered into the official medical record. I, Bakari Stringer MD attest that the above named individual is acting in scribe capacity, has observed Michael Blackythe's performance of the services and has documented them in accordance with her direction. The documentation recorded by the scribe accurately reflects the service Michael Suárez CNP and Bakari Stringer MD personally performed and the decisions made by them. Next Appt Details Follow Up: 2 Months, Reason: Provider Name:Michael Suárez , 05/18/2025 12:30:00 PM, [address] [facility], [address], [place], [address], Progress Notes * Rafa RIVAS Heaven BethDOB: [birth year] (64 yo M)Acc No.[id number]:03/19/2025 Progress Notes Patient: Trevon GENTILEbalbir Collado Provider: Gordon Suárez NP :1960 A ge:64 Y S ex:Male Date:03/19/2025 Phone: Address:[address] [place] [address], [facility] Pcp:Caryl Shi Subjective: * Chief Complaints: * L ow Back PainBilateral Knee Pain * HPI: C linic visit: Rafa Calabrese) is a 64-year-old male who returns to clinic today for a follow-up evaluation regarding his chronic low back, neck, and knee pain. Interval History: Vinod's right TKA was rescheduled until 04/15/2025. His pain has otherwise remained persistent and bothersome; he presents for a medication refill. Procedure History: Several lumbar injections at [facility] have not been helpful. He also completed cervical injections at [place]. Genicular RFAs have been completed in the past without relief - 01/01/2024 Lumbar injection ([facility]): good relief - 11/21/2022 L5-S1 [place]: 60-70% relief - 12/07/2022 bilateral knee injections (no relief) - 04/13/2023 Right knee injection: 60% relief, spiked blood pressure Previous Consults: Srinath Curiel MD of [facility] for knee treatment. Dr. Hoff (Surgeon) discussed SCS vs. L5-S1 RFA Previous Therapy: He completed knee therapy in 2019 without benefit. He has also completed therapy at [facility]. Current Pain Medications: Oxycodone 5mg BID PRN, Gabapentin, Methocarbamol 750mg BID, Meloxicam 7.5mg QD, Tizanidine 4mg QHS, Meloxicam BID PRN, NyQuil Previous Pain Medications: Amitriptyline. D epression Screening: PHQ-9 L ittle interest or pleasure in doing things M ore than half the days, F eeling down, depressed, or hopeless M ore than half the days, T rouble falling or staying asleep, or sleeping too much M ore than half the days, F eeling tired or having little energy S everal days, P oor appetite or overeating N ot at all,?Feeling bad about yourself or that you are a failure, or have let yourself or your family down More than half the days, T rouble concentrating on things, such [...] N ot at all, T otal Score 9 , I nterpretation M ild Depression. I ntervention D epression Screening Findings N egative, N arnie of the standardized tool used for adult depression screening: P atient Health Questionnaire (PHQ-9). P QRS MEASURE: 154,155 [address] Risk H [address] you had two or more falls in the past year? N o, H ave you had any falls with injury in the past year? N o, P celeste of Care: D ocumented. * ROS: G eneral/Constitutional: Chills/Fevers N o. F atigue N o. W eight gain?No. W eight loss N o. E ndocrine: Dizziness N o. E xcessive sweating N o. W eakness [...] P sychiatric: Alcoholism N o. A nxiety Y es. S ubstance abuse?No. * Medical History: * [...] W ork Status: Keisha roque of Employment: [employer]. 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 Employment Status: not working. * Medications: T akingtiZANidine HCl 4 MG Tablet 1 tablet as needed Orally once a day at bedtime Meloxicam 7.5 MG Tablet 1 tablet Orally Once a day Methocarbamol 750 MG Tablet 1 tablet Orally(muscle relaxant for daytime use, Do not take with Tizanidine- only take 1 tablet at a time) Twice a day UltiCare Short Pen [place] 31G X 8 MM Miscellaneous DIRECTED Lantus [...] to Pharmacist: Low back pain, unspecified M54.50, G89.29Medication List reviewed and reconciled with the patientTaking [...] Twice a day Taking UltiCare Short Pen [place] 31G X 8 MM Miscellaneous DIRECTED Taking [...] to Pharmacist: Low back pain, unspecified M54.50, G89.29Medication List reviewed and reconciled with the patient * Allergies: N .K.D.A.no[Allergies Verified] Objective: * Vitals: H t: 74 in, Wt: Not Taken - Declined by Patient, BMI: Not Taken - Declined by Patient, BP:126/82mm Hg, VAS-Today:81-10, VAS-Av 1-10, VAS-High: 10 1-10. * Examination: M usculoskeletal: Constitutional: N ormal body habitus, well groomed, in no acute distress. Musculoskeletal: N ormal gait and station, sits comfortably. Skin: N o rashes, scars, or lesions on visible skin. Neurological N ormal coordination upper extremities, normal coordination lower extremities, alert and oriented x3, normal mood and affect. ? C QM Exceptions: BMI not documented R tavia: P atient ReasonType of Patient Reason: P atient refused service. Assessment: * Assessment: 1. U nilateral primary osteoarthritis, right knee - M17.11 (Primary) 2 . U nilateral primary osteoarthritis, left knee - M17.12 3 . S pondylolysis, lumbosacral region - M43.07 4 . O ther chronic pain - G89.29 Plan: * Treatment: 2. O thers Notes: IJosh, am serving as a scribe to document [...] performed and the decisions made by them. ? * Procedure Codes: * Preventive Medicine: iSpine Inventory Forms: L ow Back Oswestry O swestry Score (0-100) P hill did not complete. * Follow Up: 2 Months * Billing Information: * Visit Code: [id number] Established Patient level 3. * Procedure Codes: * Sign off status: Completed true * Provider: Gordon Suárez NP Date: 03/19/2025 Generated for Andi fields/Mona/Jessica on: 0 04/19/2025 02:38 PM CDT History and Physical Notes * HPI (History of Present Illness) Category Sub-Category Detail Notes Category Not es Depression Screening PHQ-9 Little inte rest or pleasure in doing things: More than half the days Feeling down, depressed, or hopeless: Mo [...] some way: Not at all Total Score: 9 Interpretation: Mild Depression Intervention Depression Screening Findings: N egative Name of the standardized too l used for adult depression screening:: Patient Health Questionnaire (PHQ-9) Clinic visit Rafa Calabrese) is a 64-year-old male who returns to clinic today for a follow-up evaluation regarding his chronic low back, neck, and knee pain. Interval History: Vinod's right TKA was rescheduled until 04/15/2025. His pain has otherwise remained persistent and bothersome; he presents for a medication refill. Procedure History: Several lumbar injections at [facility] have not been helpful. He also completed cervical injections at [facility]. Genicular RFAs have been completed in the past without relief - 01/01/2024 Lumbar injection ([facility]): good relief - 11/21/2022 L5-S1 FANATSMA: 60-70% relief - 12/07/2022 bilateral knee injections (no relief) - 04/13/2023 Right knee injection: 60% relief, spiked blood pressure Previous Consults: Srinath Curiel MD of [facility] for knee treatment. Dr. Hoff (Surgeon) discussed SCS vs. L5-S1 RFA Previous Therapy: He completed knee therapy in 2019 without benefit. He has also completed therapy at [facility]. Current Pain Medications: Oxycodone 5mg BID PRN, Gabapentin, Methocarbamol 750mg BID, Meloxicam 7.5mg QD, Tizanidine 4mg QHS, Meloxicam BID PRN, NyQuil Previous Pain Medications: Amitriptyline PQRS MEASURE 154,155 Fall Risk Have you had t wo or more falls in the past year?: No Have you had any falls with injury in th e past year?: No Plan of Care:: Documented Examination Category Sub-Category Detail Notes Category Not es Musculoskeletal Constitutional: Normal body habi tus, well groomed, in no acute distress Musculoskeletal: Normal gait and stat ion, sits comfortably Skin: No rashes, scars, or lesions on visible skin Neurological Normal coordination upper extremities, normal coordination lower extremities, alert and oriented x3, normal mood and affect CQM Exceptions BMI not documented Reason:: Patient Reason Type of Patient Reason:: Patient refused service
--- OUTSIDE RECORDS SUMMARY | 2025-04-19 14:38 | XMS_ITS | Encounter Summary ---
Author Organization [facility] Address [address] [place] [address]. 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 Legal Sex Male 3:11 AM EMERGENCY VEHICLE OPERATIONS INSTRUCTOR Gender Identity Male 09/17/2018 5:00 PM EMERGENCY VEHICLE OPERATIONS INSTRUCTOR Sexual Orientation Straight 09/17/2018 5: 00 PM EMERGENCY VEHICLE OPERATIONS INSTRUCTOR COVID-19 Exposure Response Date Recorded In the [...] as of this encounter Care Teams Hand Striper Relationship Specialty Start Date End Date Maya Goyal MD PCP - General 05/03/04 11/14/22 No Ref-Primary, Physician PCP - General 11/15/22 Maya Goyal MD Assigned PCP 06/27/12 10/17/23 Erlin Delcid MD [id number] [facility] [address] [address] Assigned Surgical Provider 09/12/20 Mehdi Bass DPM [id number] [facility] [address] [place] [address] Assigned Musculoskeletal Provider 08/14/21 10/27/22 Kae Whipple [facility] [address] [place] [address] Assigned MTM Pharmacist 03/18/22 Maya Goyal MD Assigned Pain Medication Provider 10/02/22 03/23/23 Mehdi Bass DPM [address] [facility] [address] [place] [address] Assigned Surgical Provider 10/28/22 [facility] - [place], [address] [address] Assigned PCP 10/18/23 12/13/24 documented as of this encounter
--- OUTSIDE RECORDS SUMMARY | 2025-04-19 14:38 | XMS_ITS | Clinical Summary ---
Author Organization [facility] Address [address] [place] [address]. [place] [address] Care Team Providers Care Leather Sprayer Name Role Phone No Ref-Primary, Physician Primary Care Provider Allergies Active Allergy Reactions Criticality Noted Date [...] Last [facility] website verification: 09/19/19 [email or web address] CKD (chronic kidney disease) stage 1, GFR [...] 0 04/03/2014 Major depression 10/25/2009 06/24/2010 Immunizations Immunization Administration Dates Next Due Hepatitis A/B (Twinrix) 12/28/2010,07/25/2010, Influenza (IIV3) PF 08/04/2003 TDAP Vaccine (Adacel) 07/19/2016,06/24/2010 Family History Medical History Relation Comments Circulatory Father AAA Heart Disease Father PA with sudden d eath, complicated AAA repair [...] Sex Assigned at Male 09/17/2018 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 Legal Sex Male 3:11 AM WINDING DEPARTMENT SUPERVISOR Gender Identity Male 09/17/2018 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 Sexual Orientation Straight 09/17/2018 5: 00 PM WINDING DEPARTMENT SUPERVISOR Last Filed Vital Signs Vital Sign Reading Time Taken Comments Blood Pressure 138/88 11/17/2021 2:13 PM WINDING DEPARTMENT SUPERVISOR Pulse 99 11/17/2021 2:13 PM WINDING DEPARTMENT SUPERVISOR Temperature 37.1 C (98.7 F) 11/17/2021 2:13 PM WINDING DEPARTMENT SUPERVISOR Respiratory Rate 18 11/17/2021 2:13 PM WINDING DEPARTMENT SUPERVISOR Oxygen Saturation 98% 11/17/2021 2:13 PM WINDING DEPARTMENT SUPERVISOR Inhaled Oxygen Concentration - - Weight 154.7 kg (341 lb) 11/17/2021 2:13 PM WINDING DEPARTMENT SUPERVISOR Height 188 cm (6' 2) 11/17/2021 2:13 PM WINDING DEPARTMENT SUPERVISOR Body Mass Index 43.78 11/17/2021 2:13 PM WINDING DEPARTMENT SUPERVISOR Plan of Treatment Not on file Insurance [place] [employer] [facility] Address: [address] [address] [place] [address] [facility] [employer] INSURANCE [employer] CLAIMS MANAGEMENT [employer] CLAIMS MANAGEMENT [employer] CLAIMS MANAGEMENT NONE (Work) [id number] [place], [place] [id number] [employer] CLAIMS [employer]NAGEMENT * Guarantor: Rafa Rivas Account Type Relation to Patient Date of Phone Billing Address Medication Therapy Self 1960 [address], [place] [address] Advance Directives For more information, please contact: [phone] * Full Code (Latest Code Status on [...] 1:26 PM 09/12/2017 10:19 AM Care Teams Leather Sprayer Relationship Specialty Start Date End Date No Ref-Primary, Physician PCP - General 11/15/22
--- OUTSIDE RECORDS SUMMARY | 2025-04-19 14:38 | XMS_ITS | Clinical Summary ---
Author Organization [facility] Address [address] [place] [id number] Care Team Providers Care Project Construction Assistant Manager Name Role Phone Sarahi Roche RN Unavailable [phone] Caryl Shi DO Primary Care Provider [phone] Allergies No known active allergies Medications Multivitamin Cmb No.21-Iron-FA 18-400 mg-mcg tab Take 1 Tablet by mouth once daily. Active oxyCODONE (ROXICODONE) 5 mg immediate release tablet TAKE ONE TABLET BY MOUTH EVERY 12 HOURS NEEDED - *CAUTION: OPIOID. RISK OF OVERDOSE AND ADDICTION. 023 Active carvediloL (COREG) 25 mg tabletIndication s:Benign essential hypertension Take 2 Tablets (50 mg) by mouth two times daily with meals. 360 Tablet 3 024 Active insulin aspart, U-100, (NOVOLOG FLEXPEN) 100 unit/mL (3 mL) penIndications:T ype 2 diabetes mellitus with complication, with long-term current use of insulin (HC) Inject 10 units subcutaneous two times daily before meals. 15 mL 3 025 Active DULoxetine (CYMBALTA) 60 mg Delayed-release capsuleIndicatio ns:Mild episode of recurrent major depressive disorder Take 1 Capsule (60 mg) by mouth once daily. Take with 30 mg capsule for total of 90 mg TDD. 90 Capsule 1 025 Active DULoxetine (CYMBALTA) 30 mg Delayed-release capsuleIndicatio ns:Mild episode of recurrent major depressive disorder Take 1 Capsule (30 mg) by mouth once daily. Take with 60 mg capsule for 90 mg total per day. 90 Capsule 1 025 Active metFORMIN (GLUCOPHAGE) 500 mg tabletIndication s:Type 2 diabetes mellitus with stage 3b chronic kidney disease, with long-term current use of insulin (HC) TAKE 2 TABLETS BY MOUTH EVERY MORNING AND 2 TABLETS IN THE EVENING WITH MEALS 360 Tablet 025 Active Tresiba FlexTouch U-200 200 unit/mL (3 mL) penIndications:T ype 2 diabetes mellitus with complication, with long-term current use of insulin (HC) Inject 77 units subcutaneous at bedtime. 15 mL 5 025 Active Additional Information Patient taking differently: 85 unitSubcutaneous BEDTIME, Reported on 04/15/2025 rosuvastatin 10 mg tabletIndication s:Hyperlipidemia LDL goal <100 Take 1 Tablet (10 mg) by mouth at bedtime. 90 Tablet 3 025 Active furosemide 20 mg tabletIndication s:HTN (hypertension),B ilateral lower extremity edema Take 1 Tablet (20 mg) by mouth once daily in the morning. 90 Tablet 025 Active magnesium oxide 400 mg tabletIndication s:Hypomagnesemia Take 1 Tablet (400 mg) by mouth once daily. 90 Tablet 3 025 Active traZODone 100 mg tabletIndication s:Insomnia, unspecified type Take 1-1.5 Tablets (100-150 mg) by mouth at bedtime. 90 Tablet 1 025 Active lisinopril-hydro chlorothiazide (20-25 mg) 20-25 mg per tabletIndication s:HTN (hypertension) Take 1 Tablet by mouth once daily. 90 Tablet 2 025 Active empagliflozin (JARDIANCE) 25 mg tabletIndication s:Type 2 diabetes mellitus with complication, with long-term current use of insulin (HC) Take 1 Tablet (25 mg) by mouth once daily. 90 Tablet 025 Active gabapentin (NEURONTIN) 300 mg capsuleIndicatio ns:Diabetic peripheral neuropathy associated with type 2 diabetes mellitus (HC) Take 1 Capsule (300 mg) by mouth three times daily. 270 Capsule 3 025 Active cefadroxil (DURICEF) 500 mg capsuleIndicatio ns:S/P total knee arthroplasty, right Take 1 Capsule (500 mg) by mouth two times daily for 7 days. For infection prevention. 14 Capsule 025 2024 Active acetaminophen (TYLENOL EXTRA STRGTH) 500 mg tabletIndication s:S/P total knee arthroplasty, right Take 2 Tablets (1,000 mg) by mouth every 6 hours. Max acetaminophen dose: 4000mg in 24 hrs. 200 Tablet Active aspirin enteric coated 81 mg tabletIndication s:S/P total knee arthroplasty, right Take 1 Tablet (81 mg) by mouth two times daily with meals. Begin morning after surgery. Take for 6 weeks following surgery, do not stop taking this medication until 6 weeks after surgery for DVT/ blood clot prevention. 84 Tablet 025 2024 Active pantoprazole (PROTONIX) 40 mg delayed-release tabletIndication s:S/P total knee arthroplasty, right Take 1 Tablet (40 mg) by mouth before breakfast. Take Protonix while taking Celebrex. May discontinue Protonix use once you stop taking Celebrex. 30 Tablet Active sennosides-docus ate (Senokot-S) (8.6-50 mg) tabletIndication s:S/P total knee arthroplasty, right Take 1-3 Tablets by mouth 2 times daily if needed for Constipation. Take as needed for constipation. Hold for loose stool. Start with taking 1 tablet 2 times a day. If no bowel movement, increase to 2 tablets 2 times a day. If no bowel movement again, increase to 3 tablets 2 times a day. If greater than 2 bowel movements in 24 hours at any point, reduce to 1 tablet 2 times a day. 100 Tablet 025 Active ondansetron (ZOFRAN ODT) 4 mg disintegrating tabletIndication s:S/P total knee arthroplasty, right Place 1 Tablet (4 mg) on the tongue every 8 hours if needed for Nausea/Vomiting. 20 Tablet 025 Active naloxone (NARCAN) 4 mg/actuation nasal sprayIndications :S/P total knee arthroplasty, right Inhale 1 Lavon into affected nostril(s) each time if needed for Patient Diff To Arouse or Resp Rate < 8 / min. Additional doses may be given every 2 to 3 minutes until emergency medical assistance arrives. 2 Each 025 Active HYDROmorphone 2 mg tabletIndication s:S/P total knee arthroplasty, right Take 1-2 Tablets (2-4 mg) by mouth every 4 hours if needed for Pain (take 1 tablet for moderate pain 3-6/10 and 2 tablets for severe pain 7-10/10.). 30 Tablet 025 Active Dexcom G7 Sensor for continuous blood glucose monitor (CGM)Indications :Type 2 diabetes mellitus with stage 1 chronic kidney disease, with long-term current use of insulin (HC) To be used to read blood sugars, follow admissions coordinator directions. 9 Each 3 025 Active finasteride (PROSCAR) 5 mg tabletIndication s:BPH with urinary obstruction Take 1 Tablet (5 mg) by mouth once daily. 30 Tablet 11 022 2024 Discontinued (*Patient states no longer taking) tamsulosin (FLOMAX) 0.4 mg capsuleIndicatio ns:BPH with urinary obstruction Take 1 Capsule (0.4 mg) by mouth once daily after a meal. 90 Capsule 3 022 2024 Discontinued (*Patient states no longer taking) gabapentin (NEURONTIN) 300 mg capsuleIndicatio ns:Diabetic peripheral neuropathy associated with type 2 diabetes mellitus (HC) Take 1 Capsule (300 mg) by mouth three times daily. 270 Capsule 2 024 2024 Discontinued (Reorder (E-cancel not sent)) FreeStyle Susanna 3 Plus Sensor for continuous blood glucose monitor (CGM)Indications :Type 2 diabetes mellitus with stage 1 chronic kidney disease, with long-term current use of insulin (HC) To be used to read blood sugars, follow admissions coordinator directions. Change each sensor every 15 days 2 Each 11 025 2024 Discontinued (*Medication adjustment) FreeStyle Susanna 3 Melba for continuous blood glucose monitor (CGM)Indications :Type 2 diabetes mellitus with stage 1 chronic kidney disease, with long-term current use of insulin (HC) To be used to read blood sugars follow admissions coordinator directions. 1 Each 025 2024 Discontinued (*Medication adjustment) UltiCare Pen Needle 31 gauge x 5/16 (disposable insulin pen needle)Indicatio ns:Type 2 diabetes mellitus with stage 1 chronic kidney disease, without long-term current use of insulin (HC) Inject subcutaneous. For administering insulin at home. 300 Each 3 025 2024 Discontinued (Pharmacist change per medication history (E-cancel not sent)) empty container (Sharps Container) miscIndications: Type 2 diabetes mellitus with stage 1 chronic kidney disease, without long-term current use of insulin (HC) As directed. Use for disposal of insulin needles. 1 Each 11 025 2024 Discontinued (Pharmacist change per medication history (E-cancel not sent)) lisinopril-hydro chlorothiazide (20-25 mg) 20-25 mg per tabletIndication s:HTN (hypertension) Take 1 Tablet by mouth once daily. 90 Tablet 025 2024 Discontinued (Reorder (E-cancel not sent)) empagliflozin 25 mg tabletIndication s:Type 2 diabetes mellitus with complication, with long-term current use of insulin (HC) Take 1 Tablet (25 mg) by mouth once daily. 30 Tablet 025 2024 Discontinued (Reorder (E-cancel not sent)) cefadroxil (DURICEF) 500 mg capsuleIndicatio ns:S/P total knee arthroplasty, right Take 1 Capsule (500 mg) by mouth two times daily for 7 days. For infection prevention. 14 Capsule 025 2024 Discontinued (*IP Discontinued ) acetaminophen (TYLENOL EXTRA STRGTH) 500 mg tabletIndication s:S/P total knee arthroplasty, right Take 2 Tablets (1,000 mg) by mouth every 6 hours. Max acetaminophen dose: 4000mg in 24 hrs. 200 Tablet 025 2024 Discontinued (*IP Discontinued ) aspirin enteric coated 81 mg tabletIndication s:S/P total knee arthroplasty, right Take 1 Tablet (81 mg) by mouth two times daily with meals. Begin morning after surgery. Take for 6 weeks following surgery, do not stop taking this medication until 6 weeks after surgery for DVT/ blood clot prevention. 84 Tablet 025 2024 Discontinued (*IP Discontinued ) sennosides-docus ate (Senokot-S) (8.6-50 mg) tabletIndication s:S/P total knee arthroplasty, right Take 1-3 Tablets by mouth 2 times daily if needed for Constipation. Take as needed for constipation. Hold for loose stool. Start with taking 1 tablet 2 times a day. If no bowel movement, increase to 2 tablets 2 times a day. If no bowel movement again, increase to 3 tablets 2 times a day. If greater than 2 bowel movements in 24 hours at any point, reduce to 1 tablet 2 times a day. 100 Tablet 025 2024 Discontinued (*IP Discontinued ) ondansetron (ZOFRAN ODT) 4 mg disintegrating tabletIndication s:S/P total knee arthroplasty, right Place 1 Tablet (4 mg) on the tongue every 8 hours if needed for Nausea/Vomiting. 20 Tablet 025 2024 Discontinued (*IP Discontinued ) HYDROmorphone 2 mg tabletIndication s:S/P total knee arthroplasty, right Take 1-2 Tablets (2-4 mg) by mouth every 4 hours if needed for Pain (take one tablet for moderate pain (3-6/10) and two tablets for severe pain (7-10/10)). 30 Tablet 025 2024 Discontinued (*IP Discontinued ) naloxone (NARCAN) 4 mg/actuation nasal sprayIndications :S/P total knee arthroplasty, right Inhale 1 Lavon into affected nostril(s) each time if needed for Patient Diff To Arouse or Resp Rate < 8 / min. Additional doses may be given every 2 to 3 minutes until emergency medical assistance arrives. 2 Each 025 2024 Discontinued (*IP Discontinued ) Active Problems Problem Noted Date Diagnosed Date Chronic pain 04/15/2025 Status post total knee replacement, right 2024 Opioid dependence, uncomplicated 11/06/2024 Moderate alcohol use [...] Controlled substance agreement signed 05/02/2022 Overview (05/02/2022): [facility]. 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 Management (FreeStyle Susanna 3 Plus Sensor for continuous blood glucose monitor (CGM) 04/15/2025 3:30 PM CDT - 04/15/2025 6:05 PM CDT Surgery [facility] [address] [place] [address] Rishabh Lind, ARTHROPLASTY KNEE 04/15/2025 2:39 PM CDT Anesthesia Event [facility] [address] [place] [address] Susan Carvalho, Nyasia White, SOUP MIXER 04/15/2025 11:25 AM CDT - 04/15/2025 7:40 PM CDT Hospital Encounter [facility] [address] [place] [address] Rishabh Lind, Trish Haas MD Jyrkas, Dorothy S, RN Primary osteoarthritis of right knee (Primary Dx); S/P total knee arthroplasty, right Discharge Disposition: Home Self Care 04/15/2025 Refill [facility] [address] [place] [address] Caryl Shi DO Refill Request (GABAPENTIN 300MG CAPS) 04/15/2025 Travel 04/14/2025 Telephone [facility] [address] [place] [address] [address] [place] [address] Priscila Tolliver PA OTHER (PT) 04/09/2025 10:30 AM CDT Office Visit [facility] [address] [place] [address] Tristan Castillo MD Consult (insomnia) 04/08/2025 10:30 AM CDT Office Visit [facility] [address] [facility] [address] [place] [address] Rishabh Lind DO Follow Up (Wound Check for Right TKA) 04/08/2025 Travel 04/06/2025 10:25 AM CDT Office Visit [facility] [address] [facility] [place] [address] Caryl Shi DO Medicare ANNUAL (subsequent) Visit (64 year old) 04/06/2025 Refill [facility] [address] [facility] [place] [address] Caryl Shi DO Refill Request (Jardiance 25mg tabs) 04/06/2025 Travel 04/05/2025 Travel 04/01/2025 12:30 PM CDT Office Visit [facility] [address] [place] [place] [address] Sebastian Louis PsyD, Mental Health Intake 04/01/2025 Travel 03/31/2025 11:20 AM CDT Office Visit [facility] [address] [place] [address] Luis Eduardo Watts MD Procedure (Right L4-5 TFESI) 03/30/2025 Refill [facility] [address] [place] [address] Caryl Shi DO Refill Request (Lisinopril-Hydrochlor oth 20-25 tabs) 03/25/2025 11:55 AM CDT - 03/25/2025 11:59 PM CDT Hospital Encounter [facility] [address] [place] [address] Caryl Shi, Atypical chest pain 03/24/2025 11:52 AM CDT - 03/24/2025 11:59 PM CDT Hospital Encounter [facility] [address] [place] [address] Caryl Shi DO Atypical chest pain 03/24/2025 Travel 03/17/2025 3:15 PM CDT Office Visit [facility] [address] [place] [address] Yuridia, Caryl Elicia, DO Pre-Op Exam (// Date of Surgical Procedure 04/15/25 Name of Procedure to be performed - Knee replacement Facility where Procedure will be performed, including: [place] Performing Provider's Full name - Dr Lind //) 03/17/2025 Travel 03/09/2025 Refill [facility] [address] [place] [address] Caryl Shi, DO Refill Request (Jardiance) 03/04/2025 1:00 PM CDT Office Visit [facility] [address] [place] [address] Luis Eduardo Watts MD Musculoskeletal Problem (Follow up back pain had an epidural steroid injection last on 12/16/24) 03/04/2025 Travel 03/03/[address] [address] Caryl Shi, Refill Request (Jardiance 25mg) 02/25/2025 Telephone [facility] [address] [place] [address] Caryl Shi, DO Follow Up 02/24/2025 11:15 AM CDT Office Visit [facility] [address] [facility] [address] [place] [address] Rishabh Lind, Follow Up (F/U right knee wound check) 02/24/2025 Travel 02/19/2025 Travel 02/19/2025 Orders Only [address] [address] Caryl Shi, 1 scan: (1-Ord) NFLD-EKG-02/11/25 02/17/[address] [address] Caryl Shi, Refill Request (MAGNESIUM OXIDE 400MG TABS) 02/17/2025 Refill [facility] [address] [place] [address] Caryl Shi DO Refill Request (Furosemide) 02/12/2025 Refill [facility] [address] [place] [address] Caryl Shi DO Refill Request (Rosuvastatin Calcium 10mg) 02/12/2025 Telephone [facility] [address] [facility] [address] [place] [address] Rishabh Lind, 02/11/2025 2:50 PM CDT Office Visit [facility] [address] [place] [address] Caryl Shi, Pre-Op Exam (right knee replacement, dr lind, [facility]; 02/18/25) 02/11/2025 Travel 02/10/2025 Medical Messaging [facility] [address] [facility] [address] [place] [address] Priscila Tolliver PA Follow-up Regarding Upcoming Surgery 02/05/2025 Telephone [facility] [address] [facility] [address] [place] [address] Priscila Tolliver PA Questions 02/04/2025 Travel 02/03/2025 Telephone [facility] [address] [place] [address] Yuriy Lares MD Pre-Visit Intake 02/02/2025 Refill [facility] [address] [place] [address] Caryl Shi DO Refill Request (Jardiance) 01/28/2025 11:45 AM CDT Office Visit [facility] [address] [facility] [address] [place] [phone] Rishabh Lind, Follow Up (Right Knee- Pre TKA) 01/28/2025 Telephone [facility] [address] [place] [address] Caryl Shi, Prior Authorization (FreeStyle Susanna 3 Plus Sensor for continuous blood glucose monitor (CGM) (Approved 01/29/2025-01/30/2028) ) 01/28/2025 Telephone [facility] [address] [place] [address] Yuriy Lares MD Intake Packet 01/27/2025 Travel from Last 3 Months Immunizations Immunization Administration Dates Next Due HepA-HepB (Twinrix) 12/28/2010,07/25/2010,2009 [...] PHQ-2 Answer Date Recorded PHQ-2 TOTAL SCORE 4 04/06/2025 Social Connections Answer Date Recorded Do you [...] Sign Reading Time Taken Comments Blood Pressure 122/59 04/15/2025 5:25 PM CDT Pulse 63 04/15/2025 5:25 PM CDT Temperature 36.9 C (98.4 F) 04/15/2025 5:01 PM CDT Respiratory Rate 19 04/15/2025 5:25 PM CDT Oxygen Saturation 94% 04/15/2025 5:25 PM CDT Inhaled Oxygen Concentration - - Weight 144.8 kg (319 lb 3.2 oz) 025 12:25 PM CDT Height 188 cm (6' 2) 04/15/2025 12:25 PM CDT Body Mass Index 40.98 04/15/2025 12:25 PM CDT Plan of Treatment Upcoming Encounters Date Type Department Care Team (Late st Contact Info) Description 04/29/2025 11:00 AM CDT Office Visit [facility] [address] [address] [place] [address] [place] [address] 05/06/2025 2:15 PM CDT Nurse/Clinic Staff Only [address] [address] 05/07/2025 8:30 AM CDT Nurse/Clinic Staff Only [facility] [address] [place] [address] 05/13/2025 1:30 PM CDT Office Visit [facility] [address] [place] [phone] Sebastian Louis PsyD, LP [address] [place] [address] 06/04/2025 11:00 AM CDT Office Visit [facility] [address] [place] [address] Luis Eduardo Watts MD [address] [place] [address] 06/10/2025 11:00 AM CDT Office Visit [facility] [place] [address] [facility] [address] [place] [address] Rishabh LindDO [address] [place] [address] 08/05/2025 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 Office Visit [facility] [address] [place] [address] Tristan Castillo MD [address] [place] [address] Health Maintenance Due Date Last Done Comments Pneumococcal series for age 50+ (1 of 2 - PCV) 1977 RSV vaccine for adults or (1 - Risk 60-74 years 1-dose series) 2018 COVID-19 vaccine series ( - 2023- season) 2024 Colonoscopy through age 75 08/13/202408/13 (Verified in Care Everywhere or Patient Record) Influenza Vaccine (#1) 2025 08/04/2003 BMI (ht and wt on same day) for age 18+ 04/06/2026 04/06/2025, 03/17/2025, 02/11/2025, Additional history exists Medicare Wellness for age 65+ 04/07/2026 04/06/2025, 02/20/2024, 06/28/2022 Depression screening for age 12+ 04/09/2026 04/09/2025, 04/08/2025, 04/06/2025, Additional history exists Tetanus booster 07/19/2026 07/19/2016, 06/24/2010 Lipids for age 45-75 07/26/2028 07/26/2023, 07/26/2023, 04/25/2023, Additional history exists Hepatitis B series for 19+ Completed 12/28, 07/25/2010, 06/24/2010 Hepatitis C screening for age 18-79 Addressed 08/10/2017 (Verified in Care Everywhere or Patient Record) Overridden with the intention of not completing the topic Zoster (shingles) series for age 50+ Completed 12/24/2022, 10/23/2022 AAA screening age 65-74 Completed 08/27/2023 Medical Devices Implanted Type Area Watch Band Assembler Device Identifier Shelf Expiration Date Model / Serial / Lot Triathlon Cruciate Retaining Femoral Implanted:Qty: 1 on 04/15/2025 by Rishabh Lind DO at [facility] Right: Knee [employer] 11/03/2028 [id number]-F-[id number] / / [id number] Triathlon X3 Tibial Bearing Insert Cs Implanted:Qty: 1 on 04/15/2025 by Rishabh Lind DO at [facility] Right: Knee [employer] 07/29/2029 [id number]-[id number] / / [id number] Triathlon Tritanium Tibial Component Implanted:Qty: 1 on 04/15/2025 by Rishabh Lind DO at [facility] Right: Knee [employer] 01/28/2030 [id number] / / [id number] Procedures Procedure Name Priority Date/Time Associated Diagnosis Comments PERIPHERAL BLOCK Routine 04/15/2025 5:52 PM CDT XR KNEE 2 VIEWS RIGHT PORTABLE SAMM 04/15/2025 5:32 PM CDT SPINAL BLOCK Routine 04/15/2025 3:15 PM CDT SPINAL BLOCK Routine 04/15/2025 3:15 PM CDT PERIPHERAL BLOCK Routine 04/15/2025 3:10 PM CDT PERIPHERAL BLOCK Routine 04/15/2025 3:09 PM CDT [place] ARTHRP KNE CONDYLE&PLATU MEDIAL&LAT COMPARTMENTS Tier 4: > 90 days 04/15/2025 2:24 PM CDT Primary osteoarthritis of right knee Case Notes NITISH TRIATHLON CR CEMENTLESSrep aware of start time to follow. 6/4BOP GLUCOSE METER Routine 04/15/2025 12:36 PM CDT BEDSIDE US STUDY ARCHIVE Routine 04/15/2025 11:34 AM CDT PSA TOTAL Routine 04/06/2025 11:51 AM CDT Screening for prostate cancer MAGNESIUM Routine 04/06/2025 11:51 AM CDT Hypomagnesemia AMB EPIDURAL STEROID INJECTION Routine 03/31/2025 12:00 AM CDT Lumbar radiculopathy Spinal stenosis of lumbar region with neurogenic claudication Lumbar foraminal stenosis NM CARDIAC MPI STRESS TEST 2 DAY PANEL Routine 03/25/2025 1:30 PM CDT Atypical chest pain SCAN-STRESS TEST 03/25/2025 12:00 AM CDT HEMOGLOBIN Routine 03/17/2025 4:23 PM CDT Pre-op exam BASIC METABOLIC PANEL Routine 03/17/2025 4:23 PM CDT HTN (hypertension) HEMOGLOBIN A1C Routine 03/17/2025 4:23 PM CDT Type 2 diabetes mellitus with complication, with long-term current use of insulin (HC) EKG 12 LEAD Routine 02/19/2025 10:11 AM CDT Pre-op exam Chest discomfort [place] READING EKG - NO CHARGE, COMP ONLY Routine 02/19/2025 10:10 AM CDT Pre-op exam Chest discomfort US ABD AORTA SCREENING Routine 08/27/2023 2:10 PM 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 Screening for AAA (aortic abdominal aneurysm) LIPID PANEL W REFLEX MEASURED LDL Routine 07/26/2023 2:25 PM CDT Hyperlipidemia LDL goal <100 from Last 3 Months or Most Recently Relevant to Health Maintenance Results * H[facility] ANES BLOCK INJ PERIPH (04/15/2025 5:52 PM CDT) Narrative Harm, Susan LeonNELSON - 04/15/2025 5:52 PM CDT Susan Carvalho CRNA 04/15/2025 5:53 PM Peripheral Block Patient location during procedure: post-op Start time: 04/15/2025 5:15 PM End time: 04/15/2025 5:30 PM Reason for block: post-op pain PreProcedure Checklist Completed: patient identified, site marked, risks and benefits discussed, surgical consent, timeout performed and hand hygiene performed. Peripheral Block Patient position: supine Prep: chloraprep Supplemental O2: yes Neuro Status: alert Block type: adductor canal and lower extremity , regional analgesia techniques Lower extremity block type: adductor canal block of the femoral nerve Laterality: right Injection technique: single injection Injection assessment: incremental Needle Needle Details: stimulating Needle gauge: 20 G Needle length: 4 in Unilateral needle localization (ultrasound): live ultrasound guidance, needle and nerve visualized, no pathologic findings, local anesthetic visualized surrounding nerve, nerve appears normal and permanent images obtained. Catheter Catheter used:no Events: no complications. Susan Leon Deven DAMON ANESTHESIA PX NOTE ORDERABL ES Final Result * XR KNEE 2 VIEWS RIGHT PORTABLE (04/15/2025 5:32 PM CDT) Anatomical Region Laterality Modality KNEE R Digital Radiogra phy 04/16/2025 5:42 AM CDT Narrative 04/16/2025 5:42 AM CDT For Patients: As a result of the s Act, medical imaging exams and procedure reports are released immediately into your electronic medical record. You may view this report before your referring provider. If you have questions, please contact your health care provider. Indication: Right knee arthroplasty. Technique: Right knee 2 view. Findings: Hardware from a right knee arthroplasty is in satisfactory position. Bone alignment is normal. No sign of acute fracture. There are postoperative changes in the soft tissues. Dictated by John Chi MD @ 04/16/2025 5:42:23 AM (Electronically Signed) Procedure Note John Chi MD - 04/16/2025 For Patients: As a result of the Cures Act, medical imagingexams and procedure reports are released immediately into your electronicmedical record. You may view this report before your referring provider.If you have questions, please contact your health care provider. Indication: Right knee arthroplasty. Technique: Right knee 2 view. Findings: Hardware from a right knee arthroplasty is in satisfactory position. Bonealignment is normal. No sign of acute fracture. There are postoperativechanges in the soft tissues. Dictated by John Chi MD @ 04/16/2025 5:42:23 AM (Electronically Signed) [facility] Final R esult * HC NDL PR1, HC TRAY PR10 (04/15/2025 3:15 PM CDT) Narrative Susan Carvalho CRNA - 04/15/2025 3:15 PM CDT Susan Carvalho CRNA 04/15/2025 3:18 PM Spinal Block Patient location during procedure: OR Start time: 04/15/2025 2:48 PM End time: 04/15/2025 2:39 PM Reason for block: at surgeon's request, procedure for pain and primary anesthetic Requesting provider: Rishabh Lind DO PreProcedure Checklist Completed: patient identified, risks and benefits discussed, timeout performed, hand hygiene performed, chloraprep used and completely dried prior to procedure, IV checked, site marked, surgical consent and hand hygiene performed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
--- OUTSIDE RECORDS SUMMARY | 2025-04-19 14:38 | XMS_ITS | Encounter Summary ---
Author Organization [facility] Address [address] [place] [address]. [place] [address] Care Team Providers Care Designer Writer Name Role Phone Maya Goyal MD Primary Care Provider UnavailMaya Vazquez MD Unavailable Unavailable Erlin Delcid MD Unavailable Mehdi Bass DPM Unavailable [phone] Kae Whipple [facility] Unavailable [phone] Maya Goyal MD Unavailable Unavailable No Ref-Primary, Physician Primary Care Provider Mehdi Bass DPM Unavailable [phone] [facility] Unavailable Reason for Visit * Reason Comments Medication Refill Encounter Details Date Type Department Care Team (Late st Contact Info) Description 07/11/2021 [facility] [address] [place] [phone] Maya Goyal MD INACTIVE IN [place] 08/23/2024 Medication Refill Social History Tobacco Use [...] Sex Assigned at Male 09/17/2018 5:00 PM RANGE RIDER Legal Sex Male 3:11 AM RANGE RIDER Gender Identity Male 09/17/2018 5:00 PM RANGE RIDER Sexual Orientation Straight 09/17/2018 5: 00 PM RANGE RIDER documented as of this encounter Miscellaneous Notes * Telephone Encounter - Rukhsana Yo RN - 07/13/2021 12:52 PM CDT Prescription approved per [facility] Refill Protocol. documented in this [...] documented as of this encounter Care Teams Designer Writer Relationship Specialty Start Date End Date Maay Goyal MD PCP - General 05/03/04 11/14/22 No Ref-Primary, Physician PCP - General 11/15/22 Maya Goyal MD Assigned PCP 06/27/12 10/17/23 Erlin Delcid MD [id number] [address] Assigned Surgical Provider 09/12/20 Mehdi Bass DPM [id number] [facility] [address] [place], [place] [address] Assigned Musculoskeletal Provider 08/14/21 10/27/22 Kae Whipple [facility] [address] [place], [place] [address] Assigned MTM Pharmacist 03/18/22 Maya Goyal MD Assigned Pain Medication Provider 10/02/22 03/23/23 Mehdi Bass DPM [id number] [facility] [address] [place], [place] [address] Assigned Surgical Provider 10/28/[address] [address] Assigned PCP 10/18/23 12/13/24 documented as of this encounter
--- OUTSIDE RECORDS SUMMARY | 2025-04-19 14:38 | XMS_ITS | Encounter Summary ---
Author Organization [facility] Address [address] [place] [address]. [place] [address] Care Team Providers Care Clerk Telegraph Service Name Role Phone Maya Goyal MD Primary Care Provider UnavailMaya Vazquez MD Unavailable Unavailable Erlin Delcid MD Unavailable Mehdi Bass DPM Unavailable [phone] Kae Whipple [facility] Unavailable Maya Goyal MD Unavailable Unavailable No Ref-Primary, Physician Primary Care Provider Mehdi Bass DPM Unavailable [phone] [facility] Unavailable Reason for Visit * Reason Comments Medication Refill Encounter Details Date Type Department Care Team (Late st Contact Info) Description 06/25/2021 [facility] [address] [place] [phone] Maya Goyal MD [place]NACTIVE IN [place] 08/23/2024 [...] Sex Assigned at Male 09/17/2018 5:00 PM LEAD TECHNICIAN Legal Sex Male 3:11 AM LEAD TECHNICIAN Gender Identity Male 09/17/2018 5:00 PM LEAD TECHNICIAN Sexual Orientation Straight 09/17/2018 5: 00 PM LEAD TECHNICIAN documented as of this encounter Miscellaneous Notes * Telephone Encounter - Celestino Latham RN - 06/27/2021 2:46 PM CDT Prescription approved per [facility] Refill Protocol. documented in this encounter Plan of Treatment Not on file documented as of this encounter Visit Diagnoses Diagnosis Moderate episode of recurrent major depressive disorder (H)- Primary documented in this encounter Additional Health Concerns Assessment Noted Time PHQ-9 Depression Total Score: 10 021 2:58 PM CDT documented as of this encounter Care Teams Clerk Telegraph Service Relationship Specialty Start Date End Date Maya Goyal MD PCP - General 05/03/04 11/14/22 No Ref-Primary, Physician PCP - General 11/15/22 Maya Goyal MD Assigned PCP 06/27/12 10/17/23 Erlin Delcid MD [address] [address] Assigned Surgical Provider 09/12/20 [place] [id number] [facility] [address] [place] [address] Assigned Musculoskeletal Provider 08/14/21 10/27/22 Kae Whipple [facility] [address] [place] [address] Assigned MTM Pharmacist 03/18/22 Maya Goyal MD Assigned Pain Medication Provider 10/02/22 03/23/23 Mehdi Bass DPM [id number] [facility] [address] [place], [place] [address] Assigned Surgical Provider 10/28/[address] [address] Assigned PCP 10/18/23 12/13/24 documented as of this encounter
--- OUTSIDE RECORDS SUMMARY | 2025-04-19 14:38 | XMS_ITS | Encounter Summary ---
Author Organization [facility] Address [address] [place] [address]. [place] [address] Care Team Providers Care Patternmaker Pressure Cast Name Role Phone Maya Goyal MD Primary Care Provider UnavailMaya Vazquez MD Unavailable Unavailable Mehdi Sen MD Unavailable [phone] Erlin Delcid MD Unavailable Elicia Bedoya [facility] Unavailable Kae Whipple [facility] Unavailable Mehdi Bass DPM Unavailable [phone] Kae Whipple [facility] Unavailable Maya Goyal MD Unavailable Unavailable No Ref-Primary, Physician Primary Care Provider Mehdi Bass DPM Unavailable [phone] [facility] Unavailable Encounter Details Date Type Department Care Team (Late st Contact Info) Description 11/01/2020 [facility] [place] [address] [place] [address] Erlin Delcid MD [address] [place] [address] Social History Tobacco Use Types Packs/Day [...] Sex Assigned at Male 09/17/2018 5:00 PM FUNERAL ATTENDANT Legal Sex Male 3:11 AM FUNERAL ATTENDANT Gender Identity Male 09/17/2018 5:00 PM FUNERAL ATTENDANT Sexual Orientation Straight 09/17/2018 5: 00 PM FUNERAL ATTENDANT COVID-19 Exposure Response Date Recorded In the last month, have you been in contact with someone who was confirmed or suspected to have Coronavirus / COVID-19? No / Unsure 11/04/2020 1:14 PM FUNERAL ATTENDANT documented as of this encounter Plan of Treatment Not on file documented as of this encounter Visit Diagnoses Not on filedocumented in this encounter Additional Health Concerns Assessment Noted Time PHQ-9 Depression Total Score: 10 020 8:55 AM CDT documented as of this encounter Care Teams Patternmaker Pressure Cast Relationship Specialty Start Date End Date Maya Goyal MD PCP - General 05/03/04 11/14/22 No Ref-Primary, Physician PCP - General 11/15/22 Maya Goyal MD Assigned PCP 06/27/12 10/17/23 Mehdi Sen MD [address] [place], [place] [address] Assigned Musculoskeletal Provider 07/16/20 12/18/20 Erlin Delcid MD [address] [facility] [address] [id number] Assigned Surgical Provider 09/12/20 Elicia Bedoya, [facility] [address] [place] [address] [address] [place], [place] [id number] Pharmacist Pharmacist 11/09/20 12/06/20 Kae Whipple RPH [address] [place] [address] Pharmacist Pharmacist 11/30/20 12/06/20 Mehdi Bass DPM [address] [place] [address] [place] [address] Assigned Musculoskeletal Provider 08/14/21 10/27/22 Kae Whipple RPH [address] [place] [address] Assigned MTM Pharmacist 03/18/22 Maya Goyal MD Assigned Pain Medication Provider 10/02/22 03/23/23 Mehdi Bass DPM [address] [place] [address] Assigned Surgical Provider 10/28/22 [facility] [address] [place] [address] Assigned PCP 10/18/23 12/13/24 documented as of this encounter
--- OUTSIDE RECORDS SUMMARY | 2025-04-19 14:38 | XMS_ITS | Encounter Summary ---
Author Organization [facility] Address [address] [place] [address]. [place] [address] Care Team Providers Care Leather Goods Ii Assembler Name Role Phone Maya Goyal MD Primary Care Provider Unavailabl Maya Stallworth MD Unavailable Unavailable Mehdi Sen MD Unavailable [phone] Erlin Delcid MD Unavailable [phone] Elicia Bedoya [facility] Unavailable Kae Whipple [facility] Unavailable [phone] Mehdi BassM Unavailable [phone] Kae Whipple [facility] Unavailable [phone] Maya Goyal MD Unavailable Unavailable No Ref-Primary, Physician Primary Care Provider Mehdi Bass DPM Unavailable [phone] [facility] Unavailable Reason for Visit * Reason Comments Medication Refill Encounter Details Date Type Department Care Team (Late st Contact Info) Description 10/25/2020 [facility] [address] [place] [address] Maya Goyal MD INACTIVE IN [...] Sex Assigned at Male 09/17/2018 5:00 PM PRE BILLING SPECIALIST Legal Sex Male 3:11 AM PRE BILLING SPECIALIST Gender Identity Male 09/17/2018 5:00 PM PRE BILLING SPECIALIST Sexual Orientation Straight 09/17/2018 5: 00 PM PRE BILLING SPECIALIST COVID-19 Exposure Response Date Recorded In the last month, have you been in contact with someone who was confirmed or suspected to have Coronavirus / COVID-19? No / Unsure 10/21/2020 10:08 AM PRE BILLING SPECIALIST documented as of this encounter Miscellaneous Notes * Telephone Encounter - Susan Kohler RN - 10/26/2020 11:53 AM PRE BILLING SPECIALIST Patient has refills remaining with requesting pharmacy. Susan Cancino - Registered Nurse [facility] BILLING SPECIALIST documented in this encounter Plan of Treatment Not on file documented as of this encounter Visit Diagnoses Diagnosis Type 2 diabetes mellitus with stage 1 chronic kidney disease, without long-term current use of insulin (H) documented in this encounter Additional Health Concerns Assessment Noted Time PHQ-9 Depression Total Score: 10 020 8:55 AM CDT documented as of this encounter Care Teams Leather Goods Ii Assembler Relationship Specialty Start Date End Date Maya Goyal MD PCP - General 05/03/04 11/14/22 No Ref-Primary, Physician PCP - General 11/15/22 Maya Goyal MD Assigned PCP 06/27/12 10/17/23 Mehdi Sen MD [address] [place] [address] Assigned Musculoskeletal Provider 07/16/20 12/18/20 Erlin Delcid MD [address] [place] [address] Assigned Surgical Provider 09/12/20 Elicia Bedoya, [facility] [address] [facility] [address] [place] [address] Pharmacist Pharmacist 11/09/20 12/06/20 Kae Whipple, [facility] [address] [place] [address] Pharmacist Pharmacist 11/30/20 12/06/20 Mehdi Bass DPM [id number] [place] [address] [place] [address] Assigned Musculoskeletal Provider 08/14/21 10/27/22 Kae Whipple [facility] [address] [place] [address] Assigned MTM Pharmacist 03/18/22 Maya Goyal MD Assigned Pain Medication Provider 10/02/22 03/23/23 Mehdi Bass DPM [address] [place] [address] [place] [address] Assigned Surgical Provider 10/28/[address] [facility] [address] [place] [address] Assigned PCP 10/18/23 12/13/24 documented as of this encounter
--- OUTSIDE RECORDS SUMMARY | 2025-04-19 14:38 | XMS_ITS | Encounter Summary ---
Author Organization [facility] Address [address] [place] [address]. [place] [address] Care Team Providers Care Seasoner Name Role Phone Maya Goyal MD Unavailable Unavailable No Ref-Primary, Physician Primary Care Provider [facility] Unavailable Reason for Visit * Reason Comments Medication Refill Encounter Details Date Type Department Care Team (Late st Contact Info) Description 10/03/[address] [place] [address] Maya Goyal MD INACTIVE IN [place] 08/23/2024 Medication Refill Social History Tobacco Use [...] Sex Assigned at Male 09/17/2018 5:00 PM TABLEAU REPORT DEVELOPER Legal Sex Male 3:11 AM TABLEAU REPORT DEVELOPER Gender Identity Male 09/17/2018 5:00 PM TABLEAU REPORT DEVELOPER Sexual Orientation Straight 09/17/2018 5: 00 PM TABLEAU REPORT DEVELOPER documented as of this encounter Miscellaneous Notes * Telephone Encounter - Rukhsana Bowden RN - 10/03/2023 1:53 PM TABLEAU REPORT DEVELOPER Pt going to [facility] now. Please deny med, will put notes in Rx. Catia Swift MD [address] [place] [address] EAU REPORT DEVELOPER documented in this encounter Plan of Treatment Not on file documented as of this encounter Visit Diagnoses Diagnosis Type 2 diabetes mellitus with stage 1 chronic kidney disease, without long-term current use of insulin (H) documented in this encounter Additional Health Concerns Assessment Noted Time PHQ-9 Depression Total Score: 10 05/16/ 021 2:58 PM CDT documented as of this encounter Care Teams Seasoner Relationship Specialty Start Date End Date No Ref-Primary, Physician PCP - General 11/15/22 Maya Goyal MD Assigned PCP 06/27/12 10/17/23 [facility] - [address] [address] Assigned PCP 10/18/23 12/13/24 documented as of this encounter
--- OUTSIDE RECORDS SUMMARY | 2025-04-19 14:38 | XMS_ITS | Patient Health Record ---
Author Organization [facility] Address [address] [place] [address] [address] [place] [address] Care Team Providers Care Senior Data Modeler Name Role Phone Caryl Shi Primary Care Provider Karlo Hewitt Unavailable [phone] Catia Swift MD Unavailable Unavailable Michael Suárez Unavailable [phone] Allergies No Known Allergies Results Component Value Reference Range Notes Oral Toxicology Screen Reviewed date:01/19/2025 04:10:13 PM Interpretation:see results Performing Lab: Notes/Report: see results Oral Toxicology Screen Reviewed date:07/14/2024 01:11:06 PM Interpretation:see results Performing Lab: Notes/Report: see results Reason For Referral No Information Medications Medication SIG (Take, Route, Frequency, Duration) Notes Start Date End Date Status Lantus SoloStar 100 UNIT/ML Subcutaneous; Duration: 17 Days Active oxyCODONE HCl 5 MG 1 tablet as needed Orally every 8-12 hours; Duration: 30 days (ok to fill 04/18/2025) Low back pain, unspecified M54.50, G89.29 PRINTED 04/18/2025 Active Tamsulosin HCl 0.4 MG Oral; Duration: 90 Days Active traZODone HCl 100 MG Oral; Duration: 90 Days Active Carvedilol 25 MG Oral; Duration: [...] 20 MG Oral; Duration: 90 Days Active Finasteride 5 MG TAKE ONE TABLET BY MOUTH ONCE DAILY Oral; Duration: 30 Days Active DULoxetine HCl 60 MG Oral; Duration: 30 Days Active Methocarbamol 750 MG 1 tablet Orally(muscle relaxant for daytime use, Do not take with Tizanidine- only take 1 tablet at a time) Twice a day; Duration: 30 days Active UltiCare Short Pen [place] 31G X 8 MM DIRECTED; Duration: 30 Days Active Social History Tobacco Use: [...] W/U Status Risk Notes Problem Opioid dependence (04118307) Opioid dependence, uncomplicated (F11.20) Active confirmed Problem Chronic pain (89272747) Other chronic pain (G89.29) Active confirmed Problem Primary osteoarthritis (008297338) Unilateral primary osteoarthritis, right knee (M17.11) Active confirmed Problem Osteoarthritis of knee (871030295) Unilateral primary osteoarthritis, left knee (M17.12) Active confirmed Problem Arthralgia of the pelvic region and thigh (183173136) Pain in right hip (M25.551) Active confirmed Problem Pain of left hip joint (finding) (022646623450355) Pain in left hip (M25.552) Active confirmed Problem Acquired spondylolisthesis (291397419) Spondylolysis, lumbosacral region (M43.07) Active confirmed Problem Lumbosacral radiculopathy (4552436) Radiculopathy, lumbosacral region (M54.17) Active confirmed Problem Cervicalgia (56257283) Cervicalgia (M54.2) Active confirmed Problem High risk drug monitoring status (200295374) intermediate card tender (current) use of opiate analgesic (Z79.891) Active confirmed Problem Low back pain (064978614) Low back pain, unspecified (M54.50) Active confirmed Vital Signs Blood pressure diastolic 82 mm Hg 03/19/2025 Height 74 in 03/19/2025 Blood pressure systolic 126 mm Hg 03/19/2025 Weight 312 lbs 11/06/2024 BMI 40.05 kg/m2 11/06/2024 Encounters Encounter Location Date Provider Diagnosis [facility] [address] [facility] [address] [address] 07/07/2024 Michael Jose Armando intermediate card tender (current) use of opiate analgesic Z79.891 ; Spondylolysis, lumbosacral region M43.07 ; Opioid dependence, uncomplicated F11.20 and Other chronic pain G89.29 [facility] [address] [facility] [address] [address] 09/03/2024 Michael Jose Armando Unilateral primary osteoarthritis, right knee M17.11 ; Low back pain, unspecified M54.50 ; Unilateral primary osteoarthritis, left knee M17.12 ; Pain in left hip M25.552 ; Pain in right hip M25.551 and Other chronic pain G89.29 [facility] [address] [facility] [address] [address] 11/06/2024 Michael Suárez Unilateral primary osteoarthritis, right knee M17.11 ; Unilateral primary osteoarthritis, left knee M17.12 ; Low back pain, unspecified M54.50 ; Pain in left hip M25.552 ; Pain in right hip M25.551 and Other chronic pain G89.29 [facility] [address] [facility] [address] [address] 01/05/2025 Michael Suárez Low back pain, unspecified M54.50 ; Cervicalgia M54.2 ; Unilateral primary osteoarthritis, left knee M17.12 ; Unilateral primary osteoarthritis, right knee M17.11 ; Other chronic pain G89.29 ; intermediate card tender (current) use of opiate analgesic Z79.891 and Opioid dependence, uncomplicated F11.20 [address] [facility] [address] [address] 03/19/2025 Michael Jose Armando Unilateral primary osteoarthritis, right knee M17.11 ; Unilateral primary osteoarthritis, left knee M17.12 ; Spondylolysis, lumbosacral region M43.07 and Other chronic pain G89.29 [facility] [address] [place] [address] [address] [place] [address] 04/23/2024 Karlo Ortiz [facility] [address] [place] [address] [address] [place] [address] 05/02/2024 Michael Suárez Other chronic pain G89.29 [facility] [address] [place] [address] [address] [place] [address] 06/17/2024 Michael Suárez Other chronic pain G89.29 [facility] [address] [place] [address] [address] [place] [address] 07/07/2024 Michael Suárez [facility] [address] [place] [address] [address] [place] [address] 08/07/2024 Michael Suárez Other chronic pain G89.29 [facility] [address] [place] [address] [address] [place] [address] 10/09/2024 Michael Suárez Other chronic pain G89.29 [facility] [address] [place] [address] [address] [place] [address] 11/06/2024 Karlo Ortiz [facility] [address] [place] [address] [address] [place] [address] 11/14/2024 Michael Suárez [facility] [address] [place] [address] [address] [place] [address] 12/08/2024 Michael Suárez Other chronic pain G89.29 [facility] [address] [place] [address] [address] [place] [address] 01/17/2025 Karlo Ortiz [facility] [address] [place] [address] [address] [place] [address] 03/13/2025 Michael Amayae Other chronic pain G89.29 [facility] [address] [place] [address] [address] [place] [address] 03/19/2025 Karlo Ortiz [facility] [address] [place] [address] [address] [place] [address] 04/16/2025 Michael Suárez Other chronic pain G89.29 Assessments Encounter Date Diagnosis (ICD Code) Assessment Notes Treatment Notes Treatment Clinical Notes Section Notes 09/03/2024 Unilateral primary osteoarthritis, right knee (ICD-10 - M17.11) 09/03/2024 Low back pain, unspecified (ICD-10 - M54.50) 03/13/2025 Other chronic pain (ICD-10 - G89.29) 03/19/2025 Unilateral primary osteoarthritis, right knee (ICD-10 - M17.11) 03/19/2025 Unilateral primary osteoarthritis, left knee (ICD-10 - M17.12) 04/16/2025 Other chronic pain (ICD-10 - G89.29) 12/08/2024 Other chronic pain (ICD-10 - G89.29) 11/06/2024 Unilateral primary osteoarthritis, right knee (ICD-10 - M17.11) 05/02/2024 Other chronic pain (ICD-10 - G89.29) 01/05/2025 Low back pain, unspecified (ICD-10 - M54.50) 10/09/2024 Other chronic pain (ICD-10 - G89.29) 08/07/2024 Other chronic pain (ICD-10 - G89.29) 01/05/2025 Cervicalgia (ICD-10 - M54.2) 07/07/2024 Spondylolysis, lumbosacral region (ICD-10 - M43.07) 07/07/2024 nursing home (current) use of opiate analgesic (ICD-10 - Z79.891) 06/17/2024 Other chronic pain (ICD-10 - G89.29) 07/07/2024 Opioid dependence, uncomplicated (ICD-10 - F11.20) 01/05/2025 Unilateral primary osteoarthritis, left knee (ICD-10 - M17.12) 11/06/2024 Unilateral primary osteoarthritis, left knee (ICD-10 - M17.12) 03/19/2025 Spondylolysis, lumbosacral region (ICD-10 - M43.07) 09/03/2024 Unilateral primary osteoarthritis, left knee (ICD-10 - M17.12) 03/19/2025 Other chronic pain (ICD-10 - G89.29) Rafa (Vinod) returns to clinic today for a follow-up evaluation regarding his chronic neck, low back, and bilateral knee pain. I have reviewed the [facility] database and did not find any [...] hip (ICD-10 - M25.552) 11/06/2024 Pain in left hip (ICD-10 - M25.552) 11/06/2024 Low back pain, unspecified (ICD-10 - M54.50) 01/05/2025 Unilateral primary osteoarthritis, right knee (ICD-10 - M17.11) 07/07/2024 Other chronic pain (ICD-10 - G89.29) Vinod returns to clinic today for a follow-up evaluation regarding his chronic low back, neck, and bilateral knee pain. We discussed his current symptoms and medications. Regarding medications, I have reviewed the [place] STRIPPING MACHINE OPERATOR database and his most recent UDS, finding [...] call with any questions, problems or concerns. 01/05/2025 Other chronic pain (ICD-10 - G89.29) Rafa Calabrese) returns to clinic today for a follow-up evaluation regarding his chronic neck, low back, and bilateral knee pain. I have reviewed the [place] STRIPPING MACHINE OPERATOR database and did not find any inconsistencies. We discussed his current symptoms and medications. I will continue with a treatment plan consisting of medication management at this time. Therefore, I have refilled his oxycodone at the current dose of 5mg BID PRN as he continues to note moderate pain relief without side effects. He consented to a OTS today for low risk opioid compliance monitoring, and he completed an updated narcotic contract. Of note, he states he is scheduled for a knee replacement on 02/18/2025. This treatment plan was reviewed with Vinod, and he was agreeable. I will continue to monitor his progress and he will follow up in two months or sooner if needed. Plan: 1. Refill oxycodone (printed script) 2. OTS today 3. Renewed pain contract 4. Proceed with knee replacement on 02/18/2025 5. Follow up in two months (patient will call for refill and follow up) Discharge instructions reviewed verbally. Discussed the risks/benefits of prescribed medication. The patient is aware that medication may be discontinued at any time due to poor compliance with visits, and recommended treatment and/or if patient doesn't adhere to the signed pain contract. The patient was instructed to return to the office as scheduled and call with any questions, problems or concerns. 11/06/2024 Pain in right hip (ICD-10 - M25.551) 09/03/2024 Pain in right hip (ICD-10 - M25.551) 09/03/2024 Other chronic pain (ICD-10 - G89.29) Vinod returns to clinic today for a follow-up evaluation regarding his chronic low back, neck, and bilateral knee pain. We discussed his current symptoms and medications. Regarding medications, I have reviewed the [place] STRIPPING MACHINE OPERATOR database and his most recent OTS, finding [...] any questions, problems or concerns. 11/06/2024 Other chronic pain (ICD-10 - G89.29) Vinod returns to clinic today for a follow-up evaluation regarding his chronic low back, neck, and bilateral knee pain. We discussed his current symptoms and medications. Regarding medications, I have reviewed the [facility] database and did not find any [...] call with any questions, problems or concerns. 01/05/2025 intermediate card tender (current) use of opiate analgesic (ICD-10 - Z79.891) 01/05/2025 Opioid dependence, uncomplicated (ICD-10 - F11.20) 01/05/2025 Joselyn Latif , am serving as a scribe to document services personally performed by Michael Suárez CNP, based upon my observations and the provider's statements to me. All documentation has been reviewed by the aforementioned TREATER HELPER. I, Michael Suárez CNP, attest that the above named individual is acting in scribe capacity, has observed my performance of the services and has documented them in accordance with my direction. The documentation recorded by the scribe accurately reflects the service I personally performed and the decisions made during the clinic visit. 06/17/2024 Other I, Tommy Vides , am serving as a scribe to document services personally performed by Michael Suárez CNP, based upon my observations and the provider's statements to me. All documentation has been reviewed by the aforementioned TREATER HELPER as well as Karlo Ortiz MD, prior [...] the decisions made by them. 09/03/2024 Other I, Ann yee, am serving as a scribe to document services personally performed by Michael Suárez CNP, based upon my observations and the provider's statements to me. All documentation has been reviewed by the aforementioned TREATER HELPER. I, Michael Suárez CNP, attest that the [...] documentation has been reviewed by the aforementioned WATER LEAK REPAIRER. I, Michael Suárez NP, attest that the above named individual is acting in scribe capacity, has observed my performance of the services and has documented them in accordance with my direction. The documentation recorded by the scribe accurately reflects the service I personally performed and the decisions made during the clinic visit. 11/06/2024 Other I, Italo seo, am serving as a scribe to document services personally performed by Michael Suárez CNP, based upon my observations and the provider's statements to me. All documentation has been reviewed by the aforementioned TREATER HELPER as well as Karlo Ortiz MD, prior [...] performed and the decisions made by them. 03/19/2025 Other I, Josh joel, am serving as a scribe to document services personally performed by Michael Suárez CNP, based upon my observations and the provider's statements to me. All documentation has been reviewed by the aforementioned TREATER HELPER as well as Bakari Stringer MD, prior [...] Next Appt Details Provider Name:Michael Suárez , 05/18/2025 12:30:00 PM, [address] [facility] [address] [address], [place], [address], Insurance Providers Payer Name Payer Address Payer Phone Subscriber Number Group Number Insured Name Patient Relationship to Insured Coverage Start Date Coverage End Date [employer] [address] [place] [address] [phone] [id number] Rafa Hickey Self - patient is the insured Medicare Part B [employer] [address] [place] [address] [id number] Rafa Hickey Self - patient is the [...]
--- OUTSIDE RECORDS SUMMARY | 2025-04-19 14:38 | XMS_ITS | Encounter Summary ---
Author Organization [facility] Address [address] [place] [address]. [place] [address] Care Team Providers Care Final Operations Technician Name Role Phone Maya Goyal MD Primary Care Provider Unavailabl Maya Stallworth MD Unavailable Unavailable Mehdi Sen MD Unavailable [phone] Erlin Delcid MD Unavailable [phone] Elicia Bedoya [facility] Unavailable Kae Whipple [facility] Unavailable Mehdi Bass DPM Unavailable [phone] Kae Whipple [facility] Unavailable Maya Goyal MD Unavailable Unavailable No Ref-Primary, Physician Primary Care Provider Mehdi Bass DPM Unavailable [phone] [facility] Unavailable Encounter Details Date Type Department Care Team (Late st Contact Info) Description 11/01/2020 [facility] [address] [place] [address] Erlin Delcid MD [address] [facility] [address] [place], [place] [address] Social History Tobacco Use Types Packs/Day Years [...] Sex Assigned at Male 09/17/2018 5:00 PM CEREAL POPPER Legal Sex Male 3:11 AM CEREAL POPPER Gender Identity Male 09/17/2018 5:00 PM CEREAL POPPER Sexual Orientation Straight 09/17/2018 5: 00 PM CEREAL POPPER COVID-19 Exposure Response Date Recorded In the last month, have you been in contact with someone who was confirmed or suspected to have Coronavirus / COVID-19? No / Unsure 11/04/2020 1:14 PM CEREAL POPPER documented as of this encounter Plan of Treatment Not on file documented as of this encounter Visit Diagnoses Not on filedocumented in this encounter Additional Health Concerns Assessment Noted Time PHQ-9 Depression Total Score: 10 020 8:55 AM CDT documented as of this encounter Care Teams Final Operations Technician Relationship Specialty Start Date End Date Maya Goyla MD PCP - General 05/03/04 11/14/22 No Ref-Primary, Physician PCP - General 11/15/22 Maya Goyal MD Assigned PCP 06/27/12 10/17/23 Mehdi Sen MD [address] [place], [place] [address] Assigned Musculoskeletal Provider 07/16/20 12/18/20 Erlin Delcid MD [address] [facility] [address] [address] Assigned Surgical Provider 09/12/20 Elicia Bedoya, [facility] [address] [place] [address] 812 [place] [address] Pharmacist Pharmacist 11/09/20 12/06/20 Kae Whipple [facility] [address] [place] [address] Pharmacist Pharmacist 11/30/20 12/06/20 Mehdi Bass DPM [address] [place] [address] [address] [place] [address] Assigned Musculoskeletal Provider 08/14/21 10/27/22 Kae Whipple [facility] [address] [place] [address] Assigned MTM Pharmacist 03/18/22 Maya Goyal MD Assigned Pain Medication Provider 10/02/22 03/23/23 Mehdi Bass DPM [address] [place] [address] [place] [address] Assigned Surgical Provider 10/28/22 [facility] [address] [place] [address] Assigned PCP 10/18/23 12/13/24 documented as of this encounter
--- OUTSIDE RECORDS SUMMARY | 2025-04-19 14:38 | XMS_ITS | Encounter Summary ---
Author Organization [place] Address [address] [place] [address]. [place] [address] Care Team Providers Care Mailing Clerk Name Role Phone Maya Goyal MD Primary Care Provider Unavailabl Maya Stallworth MD Unavailable Unavailable Mehdi Sen MD Unavailable [phone] Erlin Delcid MD Unavailable Elicia Bedoya [facility] Unavailable [phone] Kae Whipple [facility] Unavailable Mehdi BassM Unavailable [phone] Kae Whipple [facility] Unavailable Maya Goyal MD Unavailable Unavailable No Ref-Primary, Physician Primary Care Provider Mehdi Bass DPM Unavailable [phone] [facility] Unavailable Reason for Visit * Reason Comments Medication Refill Encounter Details Date Type Department Care Team (Late st Contact Info) Description 09/30/2020 [facility] [address] [place] [address] Maya Goyal MD INACTIVE IN [place] 08/23/2024 Medication Refill Social History Tobacco Use [...] Sex Assigned at Male 09/17/2018 5:00 PM RUG BACKING STENCILER Legal Sex Male 3:11 AM RUG BACKING STENCILER Gender Identity Male 09/17/2018 5:00 PM RUG BACKING STENCILER Sexual Orientation Straight 09/17/2018 5: 00 PM RUG BACKING STENCILER COVID-19 Exposure Response Date Recorded In the last month, have you been in contact with someone who was confirmed or suspected to have Coronavirus / COVID-19? Yes 09/07/2020 1:45 PM RUG BACKING STENCILER documented as of this encounter Miscellaneous Notes * Telephone Encounter - Eva Garcia LPN - 10/05/2020 11:58 AM RUG BACKING STENCILER Spoke with Patient he is aware and transferred to appionent desk Valery Garcia LPN BACKING STENCILER * Telephone Encounter - Basilia Felipe MD - 10/01/2020 4:04 PM RUG BACKING STENCILER Please have him schedule an apptsoon, as he is almost due for diabetic check and can recheck sodiumsame time BACKING STENCILER * Telephone Encounter - India Tapia RN - 10/01/2020 9:58 AM CST Routing refill request to provider for review/approval because: Labs out of range: Sodium Date Value Ref Range Status 05/24/2020 127 (L) 133 - 144 mmol/L Final India Tapia RN, BSN BACKING STENCILER documented in this encounter Plan of Treatment Not on file documented as of this encounter Visit Diagnoses Diagnosis Benign essential hypertension Essential hypertension, benign documented in this encounter Additional Health Concerns Assessment Noted Time PHQ-9 Depression Total Score: 10 020 8:55 AM CDT documented as of this encounter Care Teams Mailing Clerk Relationship Specialty Start Date End Date Maya Goyal MD PCP - General 05/03/04 11/14/22 No Ref-Primary, Physician PCP - General 11/15/22 Maya Goyal MD Assigned PCP 06/27/12 10/17/23 Mehdi Sen MD 909 [place] [address] Assigned Musculoskeletal Provider 07/16/20 12/18/20 rElin Delcid MD [address] [facility] 500 [place] [address] Assigned Surgical Provider 09/12/20 Elicia Bedoya [facility] [address] [facility] 812 [place] [address] Pharmacist Pharmacist 11/09/20 12/06/20 Kae Whipple [facility] [address] [place] [address] Pharmacist Pharmacist 11/30/20 12/06/20 [place] [address] [facility] [address] [place] [address] Assigned Musculoskeletal Provider 08/14/21 10/27/22 Kae Whipple [facility] [address] [place] [address] Assigned MTM Pharmacist 03/18/22 Maya Goyal MD Assigned Pain Medication Provider 10/02/22 03/23/23 Meh[place] D[place] [address] [facility] 300 [place] [address] Assigned Surgical Provider 10/28/[address] [address] Assigned PCP 10/18/23 12/13/24 documented as of this encounter
--- OUTSIDE RECORDS SUMMARY | 2025-04-19 14:38 | XMS_ITS | Encounter Summary ---
Author Organization [place] Address [address] [place] [address]. [place] [address] Care Team Providers Care Topology Professor Name Role Phone Maya Goyal MD Primary Care Provider UnavailMaya Vazquez MD Unavailable Unavailable Erlin Delcid MD Unavailable [phone] Mehdi Bass DPM Unavailable [phone] Kae Whipple [facility] Unavailable [phone] Maya Goyal MD Unavailable Unavailable No Ref-Primary, Physician Primary Care Provider Mehdi Bass DPM Unavailable [phone] [facility] Unavailable Reason for Visit * Reason Comments Medication Refill Encounter Details Date Type Department Care Team (Late st Contact Info) Description 07/20/2021 [facility] [address] [place] [phone] Maya Goyal MD INACTIVE IN [place] 08/23/2024 Medication Refill Social History Tobacco Use [...] Sex Assigned at Male 09/17/2018 5:00 PM MBA INTERN Legal Sex Male 3:11 AM MBA INTERN Gender Identity Male 09/17/2018 5:00 PM MBA INTERN Sexual Orientation Straight 09/17/2018 5: 00 PM MBA INTERN documented as of this encounter Miscellaneous Notes * Telephone Encounter - Rukhsana Yo RN - 07/20/2021 3:55 PM CDT Prescription approved per [facility] Refill Protocol. * Telephone Encounter [...] documented as of this encounter Care Teams Topology Professor Relationship Specialty Start Date End Date Maya Goyal MD PCP - General 05/03/04 11/14/22 No Ref-Primary, Physician PCP - General 11/15/22 Maya Goyal MD Assigned PCP 06/27/12 10/17/23 Erlin Delcid MD [address] [address] Assigned Surgical Provider 09/12/20 [place] [address] [place] [address] Assigned Musculoskeletal Provider 08/14/21 10/27/22 Kae Whipple [facility] [address] [place] [address] Assigned MTM Pharmacist 03/18/22 Maya Goyal MD Assigned Pain Medication Provider 10/02/22 03/23/23 [place] [address] [facility] [address] [place] [address] Assigned Surgical Provider 10/28/[address] [facility] [address] [place], [place] [address] Assigned PCP 10/18/23 12/13/24 documented as of this encounter
--- OUTSIDE RECORDS SUMMARY | 2025-04-19 14:39 | XMS_ITS | Encounter Summary ---
Author Organization [facility] Address [address] [place] [address]. [place] [address] Care Team Providers Care It Infrastructure Architect Name Role Phone Maya Goyal MD Primary Care Provider UnavailMaya Vazquez MD Unavailable Unavailable Erlin Delcid MD Unavailable [phone] Mehdi Bass DPM Unavailable [phone] Kae Whipple [facility] Unavailable [phone] Maya Goyal MD Unavailable Unavailable No Ref-Primary, Physician Primary Care Provider Mehdi Bsas DPQuita Unavailable [phone] [facility] Unavailable Reason for Visit * Reason Onset Date Comments MyChart Communication 11/09/2021 Encounter Details Date Type Department Care Team (Latest Contact Info) Description 11/09/2021 [facility] [place] [address] [place] [phone] Maya Goyal MD INACTIVE IN [place] 08/23/2024 MyChart Communication Social History Tobacco Use [...] Sex Assigned at Male 09/17/2018 5:00 PM HOSPITAL STAFF PHARMACIST Legal Sex Male 3:11 AM HOSPITAL STAFF PHARMACIST Gender Identity Male 09/17/2018 5:00 PM HOSPITAL STAFF PHARMACIST Sexual Orientation Straight 09/17/2018 5: 00 PM HOSPITAL STAFF PHARMACIST COVID-19 Exposure Response Date Recorded In the last month, have you been in contact with someone who was confirmed or suspected to have Coronavirus / COVID-19? No / Unsure 11/10/2021 9:52 AM HOSPITAL STAFF PHARMACIST documented as of this encounter Miscellaneous Notes * Telephone Encounter - Rukhsana Bowden RN - 11/09/2021 12:58 PM HOSPITAL STAFF PHARMACIST See [employer] message. Sent his refill request encounter to Dr Goyal. ITAL STAFF PHARMACIST documented in this encounter Plan of Treatment Not on file documented as of this encounter Visit Diagnoses Not on filedocumented in this encounter Additional Health Concerns Assessment Noted Time PHQ-9 Depression Total Score: 10 021 2:58 PM CDT documented as of this encounter Care Teams It Infrastructure Architect Relationship Specialty Start Date End Date Maya Goyal MD PCP - General 05/03/04 11/14/22 No Ref-Primary, Physician PCP - General 11/15/22 Maya Goyal MD Assigned PCP 06/27/12 10/17/23 Erlin Delcid MD [address] [place] [address] [place] [address] Assigned Surgical Provider 09/12/20 Mehdi Bass [place] [address] [facility] [address] [place] [address] Assigned Musculoskeletal Provider 08/14/21 10/27/22 Kae Whipple [facility] [address] [place] [address] Assigned MTM Pharmacist 03/18/22 Maya Goyal MD Assigned Pain Medication Provider 10/02/22 03/23/23 [place] [address] [facility] [address] [place], [place] [address] Assigned Surgical Provider 10/28/22 [facility] [address] [place], [place] [address] Assigned PCP 10/18/23 12/13/24 documented as of this encounter
--- OUTSIDE RECORDS SUMMARY | 2025-04-19 14:39 | XMS_ITS | Encounter Summary ---
Author Organization [facility] Address [address] [place] [address]. [place] [address] Care Team Providers Care Teacher Citizenship Name Role Phone Maya Goyal MD Primary Care Provider UnavailMaya Vazquez MD Unavailable Unavailable Erlin Delcid MD Unavailable [phone] Mehdi Bass DPM Unavailable [phone] Kae Whipple [facility] Unavailable [phone] Maya Goyal MD Unavailable Unavailable No Ref-Primary, Physician Primary Care Provider Mehdi Bass DPM Unavailable [phone] [facility] Unavailable Reason for Visit * Reason Comments Medication Refill Encounter Details Date Type Department Care Team (Late st Contact Info) Description 09/25/2021 [facility] [address] [place] [address] [place] [phone] Maya Goyal MD INACTIVE IN [place] 08/23/2024 Medication Refill Social History Tobacco Use [...] Sex Assigned at Male 09/17/2018 5:00 PM BRAND DESIGNER Legal Sex Male 3:11 AM BRAND DESIGNER Gender Identity Male 09/17/2018 5:00 PM BRAND DESIGNER Sexual Orientation Straight 09/17/2018 5: 00 PM BRAND DESIGNER documented as of this encounter Miscellaneous Notes * Telephone Encounter - Rukhsana Yo RN - 09/27/2021 3:57 PM CST Prescription approved per [facility] Refill Protocol. D DESIGNER documented in this encounter Plan of Treatment Not on file documented as of this encounter Visit Diagnoses Diagnosis Type 2 diabetes mellitus with stage 1 chronic kidney disease, without long-term current use of insulin (H) documented in this encounter Additional Health Concerns Assessment Noted Time PHQ-9 Depression Total Score: 10 021 2:58 PM CDT documented as of this encounter Care Teams Teacher Citizenship Relationship Specialty Start Date End Date Maya Goyal MD PCP - General 05/03/04 11/14/22 No Ref-Primary, Physician PCP - General 11/15/22 Maya Goyal MD Assigned PCP 06/27/12 10/17/23 Erlin Delcid MD [address] [address] Assigned Surgical Provider 09/12/20 Mehdi Bass DPM [address] [facility] [address] [place] [address] Assigned Musculoskeletal Provider 08/14/21 10/27/22 Kae Whipple [facility] [address] [place] [address] Assigned MTM Pharmacist 03/18/22 Maya Goyal MD Assigned Pain Medication Provider 10/02/22 03/23/23 Mehdi Bass DPM [address] [facility] [address] [place], [place] [address] Assigned Surgical Provider 10/28/[address] [address] Assigned PCP 10/18/23 12/13/24 documented as of this encounter
--- OUTSIDE RECORDS SUMMARY | 2025-04-19 14:39 | XMS_ITS | Encounter Summary ---
Author Organization [facility] Address [address] [place] [address]. [place] [address] Care Team Providers Care Mold Shifter Name Role Phone Maya Goyal MD Primary Care Provider UnavailEva Brannon RN Unavailable [phone] Maya Goyal MD Unavailable Unavailable Maya Goyal MD Unavailable Unavailable Mehdi Sen MD Unavailable [phone] Erlin Delcid MD Unavailable [phone] Elicia Bedoya [facility] Unavailable [phone] Kae Whipple [facility] Unavailable [phone] Mehdi Bass DPM Unavailable [phone] Kae Whipple [facility] Unavailable [phone] Maya Goyal MD Unavailable Unavailable No Ref-Primary, Physician Primary Care Provider Mehdi Bass DPM Unavailable [phone] [facility] Unavailable Encounter Details [...] at Male 09/17/2018 5:00 PM DIRECTOR OF CLINICAL EDUCATION Legal Sex Male 3:11 AM DIRECTOR OF CLINICAL EDUCATION Gender Identity Male 09/17/2018 5:00 PM DIRECTOR OF CLINICAL EDUCATION Sexual Orientation Straight 09/17/2018 5: 00 PM DIRECTOR OF CLINICAL EDUCATION documented as of this encounter Plan of Treatment Not on file documented as of this encounter Visit Diagnoses Not on filedocumented in this encounter Additional Health Concerns Infection Onset Date Last Indicated Resolved Time COVID-19 08/27/2020 08/27/2020 09/17/2020 11:4 0 PM DIRECTOR OF CLINICAL EDUCATION Assessment Noted Time PHQ-9 Depression Total Score: 14 017 11:50 AM DIRECTOR OF CLINICAL EDUCATION documented as of this encounter Care Teams Mold Shifter Relationship Specialty Start Date End Date Maya Goyal MD PCP - General 05/03/04 11/14/22 Maya Goyal MD INACTIVE IN [place] 08/23/2024 PCP - Assigned PCP 10/22/09 11/26/18 No Ref-Primary, Physician PCP - General 11/15/22 Eva Mckenna RN Clinic Wagon Drill Operator Primary Care - CC 02/19/18 Maya Goyal MD Assigned PCP 06/27/12 10/17/23 Mehdi Sen MD [address] [place] [address] Assigned Musculoskeletal Provider 07/16/20 12/18/20 Erlin Delcid MD [address] [facility] 500 [place] [address] Assigned Surgical Provider 09/12/20 Elicia Bedoya, [facility] [address] [place] [address] 812 [place] [address] Pharmacist Pharmacist 11/09/20 12/06/20 Kae Whipple [facility] [address] [place] [address] Pharmacist Pharmacist 11/30/20 12/06/20 Mehdi Bass D[place] [address] [facility] [address] [place] [address] Assigned Musculoskeletal Provider 08/14/21 10/27/22 Kae Whipple [facility] [address] [place] [address] Assigned MTM Pharmacist 03/18/22 Maya Goyal MD Assigned Pain Medication Provider 10/02/22 03/23/23 [place] [address] [address] Assigned Surgical Provider 10/28/22 [facility] 303 [place] [address] Assigned PCP 10/18/23 12/13/24 documented as of this encounter
--- OUTSIDE RECORDS SUMMARY | 2025-04-19 14:39 | XMS_ITS | Encounter Summary ---
Author Organization [place] Address [address] [place] [address] Care Team Providers Care Cloth Printing Inspector Name Role Phone Maya Goyal MD Primary Care Provider Unavailabl Maya Stallworth MD Unavailable Unavailable Mehdi Sen MD Unavailable [phone] Erlin Delcid MD Unavailable [phone] Elicia Bedoya [facility] Unavailable [phone] Kae Whipple [facility] Unavailable Mehdi BassM Unavailable [phone] Kae Whipple [facility] Unavailable [phone] Maya Goyal MD Unavailable Unavailable No Ref-Primary, Physician Primary Care Provider Mehdi Bass DPM Unavailable [phone] [facility] Unavailable Reason for Visit * Reason Onset Date Comments MyChart Communication 09/29/2020 Encounter Details Date Type Department Care Team (Latest Contact Info) Description 09/29/2020 [facility] [address] [place] [address] Maya Goyal MD INACTIVE IN [place] 08/23/2024 MyChart Communication Social History Tobacco Use [...] Sex Assigned at Male 09/17/2018 5:00 PM OPERATOR VACUUM Legal Sex Male 3:11 AM OPERATOR VACUUM Gender Identity Male 09/17/2018 5:00 PM OPERATOR VACUUM Sexual Orientation Straight 09/17/2018 5: 00 PM OPERATOR VACUUM COVID-19 Exposure Response Date Recorded In the last month, have you been in contact with someone who was confirmed or suspected to have Coronavirus / COVID-19? Yes 09/07/2020 1:45 PM OPERATOR VACUUM documented as of this encounter Miscellaneous Notes * Telephone Encounter - Rukhsana Yo RN - 09/29/2020 12:06 PM CST My chart message sent by patient. My chart message sent to patient. ATOR VACUUM * Telephone Encounter - Rukhsana Yo RN - 09/29/2020 11:34 AM CST My chart message sent by patient. My chart message sent to patient. ATOR VACUUM documented in this encounter Plan of Treatment Not on file documented as of this encounter Visit Diagnoses Not on filedocumented in this encounter Additional Health Concerns Assessment Noted Time PHQ-9 Depression Total Score: 10 020 8:55 AM CDT documented as of this encounter Care Teams Cloth Printing Inspector Relationship Specialty Start Date End Date Maya Goyal MD PCP - General 05/03/04 11/14/22 No Ref-Primary, Physician PCP - General 11/15/22 Maya Goyal MD Assigned PCP 06/27/12 10/17/23 Mehdi Sen MD [address] [place] [address] [place] [address] Assigned Musculoskeletal Provider 07/16/20 12/18/20 Erlin Delcid MD [address] [facility] [address] [place] [address] Assigned Surgical Provider 09/12/20 Elicia Bedoya, [facility] [address] [place] [address] 812 [place] [address] Pharmacist Pharmacist 11/09/20 12/06/20 Kae Whipple [facility] [address] [place] [address] Pharmacist Pharmacist 11/30/20 12/06/20 Mehdi Bass DPM [id number] [place] [address] [place] [address] Assigned Musculoskeletal Provider 08/14/21 10/27/22 Kae Whipple [facility] [address] [place] [address] Assigned MTM Pharmacist 03/18/22 Maya Goyal MD Assigned Pain Medication Provider 10/02/22 03/23/23 Mehdi [place] [address] [place] [facility] [address] [place] [address] Assigned Surgical Provider 10/28/22 [facility] [address] [place] [address] Assigned PCP 10/18/23 documented as of this encounter
--- OUTSIDE RECORDS SUMMARY | 2025-04-19 14:39 | XMS_ITS | Encounter Summary ---
Author Organization [place] Address [address] [place] [address] Care Team Providers Care Dish Washer Name Role Phone Maya Goyal MD Primary Care Provider UnavailEva Brannon RN Unavailable [phone] aMya Goyal MD Unavailable Unavailable Maya Goyal MD Unavailable Unavailable Mehdi Sen MD Unavailable [phone] Erlin Delcid MD Unavailable [phone] Elicia Bedoya [facility] Unavailable [phone] Kae Whipple [facility] Unavailable Mehdi Bass DPM Unavailable [phone] Kae Whipple [facility] Unavailable [phone] Maya Goyal MD Unavailable Unavailable No Ref-Primary, Physician Primary Care Provider Mehdi BassM Unavailable [phone] [facility] Unavailable Encounter Details Date Type Department Care Team (Late st Contact Info) Description 12/13/2010 [facility] [place] [address] [place] [address] Maya Goyal MD INACTIVE IN [place] 08/23/2024 Social History Tobacco Use Types Packs/Day Years Used Date Smoking Tobacco: Former Cigarettes 0.5 20 0 12/01/1990 - 12/01/2010 Smokeless Tobacco: Never Alcohol Use Standard Drinks/Week Comments Yes 0 (1 standard drink = 0.6 oz pur e alcohol) Social once every 3 months Sex and Gender Information Value Date Recorded Sex Assigned at Male 09/17/2018 5:00 PM MANAGER OF LEARNING Legal Sex Male 3:11 AM MANAGER OF LEARNING Gender Identity Male 09/17/2018 5:00 PM MANAGER OF LEARNING Sexual Orientation Straight 09/17/2018 5: 00 PM MANAGER OF LEARNING documented as of this encounter Plan of Treatment Not on file documented as of this encounter Visit Diagnoses Not on filedocumented in this encounter Additional Health Concerns Infection Onset Date Last Indicated Resolved Time COVID-19 08/27/2020 08/27/2020 09/17/2020 11:4 0 PM MANAGER OF LEARNING documented as of this encounter Care Teams Dish Washer Relationship Specialty Start Date End Date Maya Goyal MD PCP - General 05/03/04 11/14/22 Maya Goyal MD [place]CTIVE IN [place] 08/23/2024 PCP - Assigned PCP 10/22/09 11/26/18 No Ref-Primary, Physician PCP - General 11/15/22 Eva Mckenna RN Clinic Instrument Installer Primary Care - CC 02/19/18 Maya Goyal MD Assigned PCP 06/27/12 10/17/23 Mehdi Sen MD [address] [place], [place] [address] Assigned Musculoskeletal Provider 07/16/20 12/18/20 Erlin Delcid MD [address] [address] Assigned Surgical Provider 09/12/20 Elicia Bedoya, [facility] [address] [place] [address] Pharmacist Pharmacist 11/09/20 12/06/20 Kae Whipple RPH [address] [place] [address] Pharmacist Pharmacist 11/30/20 12/06/20 Mehdi Bass DPM [address] [place] [address] [address] [place] [address] Assigned Musculoskeletal Provider 08/14/21 10/27/22 Kae Whipple RPH [address] [place] [address] Assigned MTM Pharmacist 03/18/22 Maya Goyal MD Assigned Pain Medication Provider 10/02/22 03/23/23 Mehdi Bass DPM [id number] [place] [address] [place] [address] Assigned Surgical Provider 10/28/22 [facility] 303 [place] [address] Assigned PCP 10/18/23 12/13/24 documented as of this encounter
--- OUTSIDE RECORDS SUMMARY | 2025-04-19 14:39 | XMS_ITS | Encounter Summary ---
Author Organization [place] Address [address] [place] [address] Care Team Providers Care Thermocouple Tester Name Role Phone Maya Goyal MD Primary Care Provider Unavailabl e None Primary Care Provider Unavailnikole e Eva Mckenna RN Unavailable [phone] Maya Goyal MD Unavailable Unavailable Maya Goyal MD Unavailable Unavailable Mehdi Sen MD Unavailable [phone] Erlin Delcid MD Unavailable [phone] Elicia Bedoya [facility] Unavailable [phone] Kae Whipple [facility] Unavailable [phone] Mehdi BassM Unavailable [phone] Kae Whipple [facility] Unavailable [phone] Maya Goyal MD Unavailable Unavailable No Ref-Primary, Physician Primary Care Provider Medhi BassM Unavailable [phone] [facility] Unavailable Encounter Details Date Type Department Care Team (Late st Contact Info) Description 12/15/2002 [facility] [address] [facility] [address] [place] [address] Maya Goyal MD INACTIVE IN [place] 08/23/2024 ER ENC (Primary Dx) Social History [...] Sex Assigned at Male 09/17/2018 5:00 PM MASTER LAY OUT SPECIALIST Legal Sex Male 3:11 AM MASTER LAY OUT SPECIALIST Gender Identity Male 09/17/2018 5:00 PM MASTER LAY OUT SPECIALIST Sexual Orientation Straight 09/17/2018 5: 00 PM MASTER LAY OUT SPECIALIST documented as of this encounter Progress Notes * 12/15/2002 11:59 PM [id number] 00:00 Emergency Department Encounter-[facility] TRACY BYRNE) [Entered: 00:00 Lithographic Etcher ([facility])] : 56 CHIEF COMPLAINT: I was at work and a tow bar dropped on my arm. HISTORY OF PRESENT ILLNESS: Rafa Hickey is a 42-year-old white male who comes to us from [facility] [employer] where he was working out on the [employer]. Apparently his friend pulled the tug away [...] right-handed. SOCIAL HISTORY: The patient has worked [employer] for the last eighteen years. REVIEW OF [...] up and follow-up in two days at [facility] f or clearance for work. He may be able to return to light duty with his left hand. He was given appr opriate work slips to follow-up. DIAGNOSIS: 1) Soft tissue trauma, right wrist with questionable raysa icular fracture, under evaluation. 2) Workman's Comp related. _ TRACY BYRNE MD MT: Document: [id number] Electronically filed by Stella Paul 12/18 11:45 AM documented in this encounter Plan of Treatment Not on file documented as of this encounter Visit Diagnoses Diagnosis ER ENC- Primary documented in this encounter Additional Health Concerns Infection Onset Date Last Indicated Resolved Time COVID-19 08/27/2020 08/27/2020 09/17/2020 11:4 0 PM MASTER LAY OUT SPECIALIST documented as of this encounter Care Teams Thermocouple Tester Relationship Specialty Start Date End Date Maya Goyal MD PCP - General 05/03/04 11/14/22 None PCP - General 12/01/02 05/02/04 Maya Goyal MD INACTIVE IN [place] 08/23/2024 PCP - Assigned PCP 10/22/09 11/26/18 No Ref-Primary, Physician PCP - General 11/15/22 Eva Mckenna RN Clinic Welding Instructor Primary Care - CC 02/19/18 Maya Goyal MD Assigned PCP 06/27/12 10/17/23 Mehdi Sen MD [address] [place] [address] Assigned Musculoskeletal Provider 07/16/20 12/18/20 Erlin Delcid MD [address] [address] Assigned Surgical Provider 09/12/20 Elicia Bedoya [facility] [address] [place] [address] [place] [address] Pharmacist Pharmacist 11/09/20 12/06/20 Kae Whipple [facility] 303 [place] [address] Pharmacist Pharmacist 11/30/20 12/06/20 Mehdi Bass DPM [id number] [place] [address] [place] [place] [address] Assigned Musculoskeletal Provider 08/14/21 10/27/22 Kae Whipple [facility] [address] [place] [address] Assigned MTM Pharmacist 03/18/22 Maya Goyal MD Assigned Pain Medication Provider 10/02/22 03/23/23 Mehdi Bass DPM [id number] [address] [facility] [address] [place] [address] Assigned Surgical Provider 10/28/22 [facility] [place] [address] Assigned PCP 10/18/23 12/13/24 documented as of this encounter
--- OUTSIDE RECORDS SUMMARY | 2025-04-19 14:39 | XMS_ITS | Encounter Summary ---
Author Organization [place] Address [address] [place] [address] Care Team Providers Care Library Circulation Department Chief Name Role Phone Maya Goyal MD Primary Care Provider UnavailMaya Vazquez MD Unavailable Unavailable Erlin Delcid MD Unavailable [phone] Mehdi Bass DPM Unavailable [phone] Kae Whipple [facility] Unavailable [phone] Maya Goyal MD Unavailable Unavailable No Ref-Primary, Physician Primary Care Provider Mehdi Bass DPM Unavailable [phone] [facility] Unavailable Reason for Visit * Reason Onset Date Comments Patient Inquiry 09/02/2021 Encounter Details Date Type Department Care Team (Late st Contact Info) Description 09/02/2021 [facility] [address] [address] Mehdi Bass DPM [id number] [facility] [address] [place] [address] Patient Inquiry Social History Tobacco [...] Sex Assigned at Male 09/17/2018 5:00 PM GIN INSPECTOR Legal Sex Male 3:11 AM GIN INSPECTOR Gender Identity Male 09/17/2018 5:00 PM GIN INSPECTOR Sexual Orientation Straight 09/17/2018 5: 00 PM GIN INSPECTOR COVID-19 Exposure Response Date Recorded In the last month, have you been in contact with someone who was confirmed or suspected to have Coronavirus / COVID-19? No / Unsure 08/17/2021 12:57 PM GIN INSPECTOR documented as of this encounter Plan of Treatment Not on file documented as of this encounter Visit Diagnoses Not on filedocumented in this encounter Additional Health Concerns Assessment Noted Time PHQ-9 Depression Total Score: 10 021 2:58 PM CDT documented as of this encounter Care Teams Library Circulation Department Chief Relationship Specialty Start Date End Date Maya Goyal MD PCP - General 05/03/04 11/14/22 No Ref-Primary, Physician PCP - General 11/15/22 Maya Goyal MD Assigned PCP 06/27/12 10/17/23 Erlin Delcid MD [address] [facility] [address] [place] [address] Assigned Surgical Provider 09/12/20 [place] [id number] [facility] [address] [place] [address] Assigned Musculoskeletal Provider 08/14/21 10/27/22 Kae Whipple RPH [place] [address] Assigned MTM Pharmacist 03/18/22 Maya Goyal MD Assigned Pain Medication Provider 10/02/22 03/23/23 Mehdi Bass DPM [id number] [facility] [address] [place], [place] [address] Assigned Surgical Provider 10/28/[address] [id number] Assigned PCP 10/18/23 12/13/24 documented as of this encounter
--- OUTSIDE RECORDS SUMMARY | 2025-04-19 14:39 | XMS_ITS | Encounter Summary ---
Author Organization [facility] Address [address] [place] [address] Care Team Providers Care Electronic Organ Mechanic Name Role Phone Maya Goyal MD Primary Care Provider Unavailabl e None Primary Care Provider Unavailnikole e Eva Mckenna RN Unavailable [phone] Maya Goyal MD Unavailable Unavailable Maya Goyal MD Unavailable Unavailable Mehdi Sen MD Unavailable [phone] Erlin Delcid MD Unavailable [phone] Elicia Bedoya [facility] Unavailable [phone] Kae Whipple [facility] Unavailable [phone] Mehdi BassM Unavailable [phone] Kae Whipple [facility] Unavailable [phone] Maya Goyal MD Unavailable Unavailable No Ref-Primary, Physician Primary Care Provider Mehdi BassM Unavailable [phone] [facility] Unavailable Encounter Details Date Type Department Care Team (Late st Contact Info) Description 03/10/2003 [facility] [address] [address] Jonathan Casillas MD XXX RETIRED XXX [address] [address] Social History Tobacco Use Types Packs/Day Years Used Date Smoking Tobacco: Never Assessed Sex and Gender Information Value Date Recorded Sex Assigned at Male 09/17/2018 5:00 PM LUMP ROOM SUPERVISOR Legal Sex Male 3:11 AM LUMP ROOM SUPERVISOR Gender Identity Male 09/17/2018 5:00 PM LUMP ROOM SUPERVISOR Sexual Orientation Straight 09/17/2018 5: 00 PM LUMP ROOM SUPERVISOR documented as of this encounter Plan of Treatment Not on file documented as of this encounter Visit Diagnoses Not on filedocumented in this encounter Additional Health Concerns Infection Onset Date Last Indicated Resolved Time COVID-19 08/27/2020 08/27/2020 09/17/2020 11:4 0 PM LUMP ROOM SUPERVISOR documented as of this encounter Care Teams Electronic Organ Mechanic Relationship Specialty Start Date End Date Maya Goyal MD PCP - General 05/03/04 11/14/22 None PCP - General 12/01/02 05/02/04 Maya Goyal MD INACTIVE IN [place] 08/23/2024 PCP - Assigned PCP 10/22/09 11/26/18 No Ref-Primary, Physician PCP - General 11/15/22 Eva Mckenna RN Clinic Manager Registration Primary Care - CC 02/19/18 Maya Goyal MD Assigned PCP 06/27/12 10/17/23 Mehdi Sen MD [address] [place] [address] Assigned Musculoskeletal Provider 07/16/20 12/18/20 Erlin Delcid MD [address] [address] Assigned Surgical Provider 09/12/20 Elicia Bedoya, [facility] [address] [place] [address] [place] [address] Pharmacist Pharmacist 11/09/20 12/06/20 Kae Whipple RPH [address] [place] [address] Pharmacist Pharmacist 11/30/20 12/06/20 Mehdi Bass DPM [id number] [place] [address] [address] [place] [address] Assigned Musculoskeletal Provider 08/14/21 10/27/22 Kae Whipple RPH [address] [place] [address] Assigned MTM Pharmacist 03/18/22 Maya Goyal MD Assigned Pain Medication Provider 10/02/22 03/23/23 Mehdi Bass DPM [id number] [place] [address] [address] [place] [address] Assigned Surgical Provider 10/28/22 [facility] 303 [place] [address] Assigned PCP 10/18/23 12/13/24 documented as of this encounter
--- OUTSIDE RECORDS SUMMARY | 2025-04-19 14:39 | XMS_ITS | Encounter Summary ---
Author Organization [place] Address [address] [place] [address] Care Team Providers Care Proof Machine Operator Name Role Phone Maya Goyal MD Primary Care Provider UnavailEva Brannon RN Unavailable [phone] Maya Goyal MD Unavailable Unavailable Maya Goyal MD Unavailable Unavailable Mehdi Sen MD Unavailable [phone] Erlin Delcid MD Unavailable [phone] Elicia Bedoya [facility] Unavailable [phone] Kae Whipple [facility] Unavailable Mehdi Bass DPM Unavailable [phone] Kae Whipple [facility] Unavailable [phone] Maya Goyal MD Unavailable Unavailable No Ref-Primary, Physician Primary Care Provider Mehdi BassM Unavailable [phone] [facility] Unavailable Encounter Details Date Type Department Care Team (Late st Contact Info) Description 08/26/2006 [facility] [address] [place] [address] [place] [address] Maya Goyal MD INACTIVE IN [place] 08/23/2024 Social History Tobacco Use Types Packs/Day Years Used Date Smoking Tobacco: Every Day Cigarettes 0.5 20 Alcohol Use Standard Drinks/Week Comments Yes 0 (1 standard drink = 0.6 oz pur e alcohol) Social once every 3 months Sex and Gender Information Value Date Recorded Sex Assigned at Male 09/17/2018 5:00 PM PUBLIC HEALTH PHYSICIAN Legal Sex Male 3:11 AM PUBLIC HEALTH PHYSICIAN Gender Identity Male 09/17/2018 5:00 PM PUBLIC HEALTH PHYSICIAN Sexual Orientation Straight 09/17/2018 5: 00 PM PUBLIC HEALTH PHYSICIAN documented as of this encounter Plan of Treatment Not on file documented as of this encounter Visit Diagnoses Not on filedocumented in this encounter Additional Health Concerns Infection Onset Date Last Indicated Resolved Time COVID-19 08/27/2020 08/27/2020 09/17/2020 11:4 0 PM PUBLIC HEALTH PHYSICIAN documented as of this encounter Care Teams Proof Machine Operator Relationship Specialty Start Date End Date Maya Goyal MD PCP - General 05/03/04 11/14/22 Maya Goyal MD INACTIVE IN [place] 08/23/2024 PCP - Assigned PCP 10/22/09 11/26/18 No Ref-Primary, Physician PCP - General 11/15/22 Eva Mckenna RN Clinic Biophysics Professor Primary Care - CC 02/19/18 Maya Goyal MD Assigned PCP 06/27/12 10/17/23 Mehdi Sen MD 9 [place], [place] [id number] Assigned Musculoskeletal Provider 07/16/20 12/18/20 Erlin Delcid MD [address] [address] Assigned Surgical Provider 09/12/20 Elicia Bedoya, [facility] [address] [place] [address] 8[address] [place], [place] [id number] Pharmacist Pharmacist 11/09/20 12/06/20 Kae Whipple [facility] [address] [place] [address] Pharmacist Pharmacist 11/30/20 12/06/20 Mehdi Bass DPM [phone] [place] [address] [address] [place] [address] Assigned Musculoskeletal Provider 08/14/21 10/27/22 Kae Whipple [facility] [address] [place] [address] Assigned MTM Pharmacist 03/18/22 Maya Goyal MD Assigned Pain Medication Provider 10/02/22 03/23/23 Mehdi Bass DPM [id number] [place] [address] [address] [place] [address] Assigned Surgical Provider 10/28/22 [facility] 303 [place] [address] Assigned PCP 10/18/23 12/13/24 documented as of this encounter
--- OUTSIDE RECORDS SUMMARY | 2025-04-19 14:39 | XMS_ITS | Encounter Summary ---
Author Organization [facility] Address [address] [place] [address] Care Team Providers Care Shore Worker Name Role Phone Maya Goyal MD Primary Care Provider Unavailabl e None Primary Care Provider Unavailnikole e Eva Mckenna RN Unavailable [phone] Maya Goyal MD Unavailable Unavailable Maya Goyal MD Unavailable Unavailable Mehdi Sen MD Unavailable [phone] Erlin Delcid MD Unavailable [phone] Elicia Bedoya [facility] Unavailable [phone] Kae Whipple [facility] Unavailable [phone] Mehdi BassM Unavailable [phone] Kae Whipple [facility] Unavailable [phone] Maya Goyal MD Unavailable Unavailable No Ref-Primary, Physician Primary Care Provider Mehdi BassM Unavailable [phone] [facility] Unavailable Encounter Details Date Type Department Care Team (Late st Contact Info) Description 02/16/2003 [facility] [address] [facility] [address] [place] [address] Maya Goyal MD INACTIVE IN [place] 08/23/2024 ER ENC (Primary Dx) Social History [...] Sex Assigned at Male 09/17/2018 5:00 PM COATER SLATE Legal Sex Male 3:11 AM COATER SLATE Gender Identity Male 09/17/2018 5:00 PM COATER SLATE Sexual Orientation Straight 09/17/2018 5: 00 PM COATER SLATE documented as of this encounter Progress Notes * 02/16/2003 11:59 PM RAFA SYKES 00:00 Emergency Department Encounter-[facility] () [Ente red: 00:00 Exchange Trouble Shooter (HIM)] CHIEF COMPLAINT: Ankle pain. 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 A rolling tool box rolled into his right medial ankle resulting in pain. He p resents now for evaluation. PAST MEDICAL HISTORY: Hypertension and hypercholesterolemia. CURRENT MED ICATIONS: Lotrel, Zocor and gemfibrozil. ALLERGIES: No known allergies. SOCIAL HISTORY: The carlos zavala works for [employer] as above. He is a one pack [...] Skin: Warm and dry and as above. [facility] DEPARTMENT COURSE AND TREATMENT: The [...] 1. Rest, ice and elevation. 2. Ibuprofen [id number] prn. 3. Work restricti ons as a [...] COVID-19 08/27/2020 08/27/2020 09/17/2020 11:4 0 PM COATER SLATE documented as of this encounter Care Teams Shore Worker Relationship Specialty Start Date End Date Maya Goyal MD PCP - General 05/03/04 11/14/22 None PCP - General 12/01/02 05/02/04 Maya Goyal MD INACTIVE IN [place] 08/23/2024 PCP - Assigned PCP 10/22/09 11/26/18 No Ref-Primary, Physician PCP - General 11/15/22 Eva Mckenna RN Clinic Dealer Accounts Investigator Primary Care - CC 02/19/18 Maya Goyal MD Assigned PCP 06/27/12 10/17/23 Mehdi Sen MD [address] [place], [place] [address] Assigned Musculoskeletal Provider 07/16/20 12/18/20 Erlin Delcid MD [address] [address] Assigned Surgical Provider 09/12/20 Elicia Bedoya [facility] [address] [place] [address] 812 [place] [address] Pharmacist Pharmacist 11/09/20 12/06/20 Kae Whipple [facility] 303 [place] [address] Pharmacist Pharmacist 11/30/20 12/06/20 Mehdi Bass DPM [id number] [place] [address] [place] [address] Assigned Musculoskeletal Provider 08/14/21 10/27/22 Kae Whipple [facility] [address] [place] [address] Assigned MTM Pharmacist 03/18/22 Maya Goyal MD Assigned Pain Medication Provider 10/02/22 03/23/23 Mehdi Bass DPM [id number] [place] [address] [place] [address] Assigned Surgical Provider 10/28/22 [facility] 303 [place] [address] Assigned PCP 10/18/23 12/13/24 documented as of this encounter
--- OUTSIDE RECORDS SUMMARY | 2025-04-19 14:39 | XMS_ITS | Encounter Summary ---
Author Organization [place] Address [address] [place] [address]. [place] [address] Care Team Providers Care Pharmacy Director Name Role Phone Maya Goyal MD Primary Care Provider UnavailMaya Vazquez MD Unavailable Unavailable Erlin Delcid MD Unavailable [phone] Mehdi Bass DPM Unavailable [phone] Kae Whipple [facility] Unavailable [phone] Maya Goyal MD Unavailable Unavailable No Ref-Primary, Physician Primary Care Provider Mehdi Bass DPM Unavailable [phone] [facility][Note 2] Unavailable Reason for Visit * Reason Onset Date Comments Orders 09/04/2021 Encounter Details Date Type Department Care Team (Late st Contact Info) Description 09/04/2021 [facility] Medical Advice [address] [place] [address] Maya Goyal MD INACTIVE IN [place] 08/23/2024 Orders Social History Tobacco Use Types [...] Sex Assigned at Male 09/17/2018 5:00 PM HOME HEALTH AIDE CAREGIVER Legal Sex Male 3:11 AM HOME HEALTH AIDE CAREGIVER Gender Identity Male 09/17/2018 5:00 PM HOME HEALTH AIDE CAREGIVER Sexual Orientation Straight 09/17/2018 5: 00 PM HOME HEALTH AIDE CAREGIVER COVID-19 Exposure Response Date Recorded In the last month, have you been in contact with someone who was confirmed or suspected to have Coronavirus / COVID-19? No / Unsure 08/17/2021 12:57 PM HOME HEALTH AIDE CAREGIVER documented as of this encounter Miscellaneous Notes * Telephone Encounter - Rukhsana Bowden RN - 09/06/2021 10:08 AM HOME HEALTH AIDE CAREGIVER Sent Elo7 message. HEALTH AIDE CAREGIVER documented in this encounter Plan of Treatment Not on file documented as of this encounter Visit Diagnoses Not on filedocumented in this encounter Additional Health Concerns Assessment Noted Time PHQ-9 Depression Total Score: 10 021 2:58 PM CDT documented as of this encounter Care Teams Pharmacy Director Relationship Specialty Start Date End Date Maya Goyal MD PCP - General 05/03/04 11/14/22 No Ref-Primary, Physician PCP - General 11/15/22 Maya Goyal MD Assigned PCP 06/27/12 10/17/23 Erlin Delcid MD [address] [address] Assigned Surgical Provider 09/12/20 Mehdi Bass DPM [id number] [facility] [address] [place] [address] Assigned Musculoskeletal Provider 08/14/21 10/27/22 Kae Whipple [facility] [address] [place] [address] Assigned MTM Pharmacist 03/18/22 Maya Goyal MD Assigned Pain Medication Provider 10/02/22 03/23/23 Mehdi Bass DPM [phone] [facility] [address] [place] [address] Assigned Surgical Provider 10/28/22 [facility]Note 2] [address] [place] [address] Assigned PCP 10/18/23 12/13/24 documented as of this encounter
--- OUTSIDE RECORDS SUMMARY | 2025-04-19 14:39 | XMS_ITS | Encounter Summary ---
Author Organization [facility] Address [address] [place] [address] Care Team Providers Care Java Xml Developer Name Role Phone Maya Goyal MD Primary Care Provider UnavailEva Brannon RN Unavailable [phone] Maya Goyal MD Unavailable Unavailable Maya Goyal MD Unavailable Unavailable Mehdi Sen MD Unavailable [phone] Erlin Delcid MD Unavailable [phone] Elicia Bedoya [facility] Unavailable [phone] Kae Whipple [facility] Unavailable Mehdi Bass DPM Unavailable [phone] Kae Whipple [facility] Unavailable [phone] Maya Goyal MD Unavailable Unavailable No Ref-Primary, Physician Primary Care Provider Mehdi BassM Unavailable [phone] [facility] Unavailable Encounter Details Date Type Department Care Team (Latest Contact Info) Description 08/29/2010 [facility] [address] [place] [address] Maya Goyal MD INACTIVE IN [place] 08/23/2024 BENIGN HYPERTENSION (Primary Dx) Social History Tobacco Use Types Packs/Day Years Used Date Smoking Tobacco: Every Day Cigarettes 0.5 20 Alcohol Use Standard Drinks/Week Comments Yes 0 (1 standard drink = 0.6 oz pur e alcohol) Social once every 3 months Sex and Gender Information Value Date Recorded Sex Assigned at Male 09/17/2018 5:00 PM SLASHER Legal Sex Male 3:11 AM SLASHER Gender Identity Male 09/17/2018 5:00 PM SLASHER Sexual Orientation Straight 09/17/2018 5: 00 PM SLASHER documented as of this encounter Plan of Treatment Not on file documented as of this encounter Visit Diagnoses Diagnosis BENIGN HYPERTENSION- Primary Essential hypertension, benign documented in this encounter Additional Health Concerns Infection Onset Date Last Indicated Resolved Time COVID-19 08/27/2020 08/27/2020 09/17/2020 11:4 0 PM SLASHER documented as of this encounter Care Teams Java Xml Developer Relationship Specialty Start Date End Date Maya Goyal MD PCP - General 05/03/04 11/14/22 Maya Goyal MD INACTIVE IN [place] 08/23/2024 PCP - Assigned PCP 10/22/09 11/26/18 No Ref-Primary, Physician PCP - General 11/15/22 Eva Mckenna RN Clinic Assembly Loader Primary Care - CC 02/19/18 Maya Goyal MD Assigned PCP 06/27/12 10/17/23 Mehdi Sen MD [address] [place] [address] Assigned Musculoskeletal Provider 07/16/20 12/18/20 Erlin Delcid MD [address] [address] Assigned Surgical Provider 09/12/20 Elicia Bedoya, [facility] [address] [place] [address] 812 [place] [address] Pharmacist Pharmacist 11/09/20 12/06/20 Kae Whipple R[facility] [address] [place] [address] Pharmacist Pharmacist 11/30/20 12/06/20 Mehdi Bass DPM [address] [place] [address] [address] [place] [address] Assigned Musculoskeletal Provider 08/14/21 10/27/22 Kae Whipple RPH [address] [place] [address] Assigned MTM Pharmacist 03/18/22 Maya Goyal MD Assigned Pain Medication Provider 10/02/22 03/23/23 Mehdi Bass DPM [address] [place] [address] [place] [address] Assigned Surgical Provider 10/28/22 [facility] [address] [place] [address] Assigned PCP 10/18/23 12/13/24 documented as of this encounter
--- OUTSIDE RECORDS SUMMARY | 2025-04-19 14:39 | XMS_ITS | Data Portability ---
Author Organization [facility], [facility] Address [address] [place] [address] Care Team Providers Care Finished Metal Repairer Name Role Phone AMANDEEP TODD Primary Care [...] Orders finasteride 5 mg tablet 2022 023 [facility] [place], [address], 3 15:52:06 tamsulosin 0.4 mg capsule 2022 023 [facility] [address], [address], [place], [address], 3 15:52:06 tamsulosin 0.4 mg capsule 2022 023 [facility] [address], [address], [place], [address], 3 10:23:19 finasteride 5 mg tablet 2022 023 [facility] [address], [address], [place], [address], 3 10:23:19 Patient TargetsNo targets recorded. Patient [...] Time 3 Bladder Scan completed Asuncion Batres [facility] 12/27/2022 10:13:26 2 Bladder Scan completed Gris Dwyer [facility] 05/31/2022 11:23:55 9 [facility] 11:23:05 Imaging Results None recorded. Procedure Notes None recorded. Medical Equipment None [...] Not Available Not Available No t Available trazodone 100 mg tablet TAKE TWO TABLETS [...] Updated DateTime 12/27/2022 187.96 cm 41.2 kg/m2 366395.15 g Asuncion Batres [facility] 12/27/2022 10:15:31 Date Recorded Body height Body mass index (BMI) Body weight Provider Name and Address Organization Details Last Updated DateTime 05/30/2023 187.96 cm 41.2 kg/m2 527221.15 g Dhaval Cruz MD [address] [place] [address], [id number] [place] [address] Urolog 05/30/2023 15:20:19 Date Recorded Body height Body mass index (BMI) Body weight Provider Name and Address Organization Details Last Updated DateTime 05/31/2022 187.96 cm 41.2 kg/m2 768690.15 cinthia Gris Yuliya [facility] 05/31/2022 11:22:11 Social History Question Answer Notes LastModified by Organizat ion Details LastModified Time Tobacco Smoking Status Former Smoker Grisshama Escuderomaya pepe [facility] 05/31/2022 11:22:52 What Is Your Level Of Caffeine Consumption? Heavy Information not available 05/30/2023 When Did You Quit Smoking? 1-5yearssinc elastcigaret te [email or web address] Information not available 05/31/2022 What Was The Date Of Your Most Recent Tobacco Screening? 05/30/2023 Information not available 05/30/2023 Sex: Unknown Functional Status Question Answer Note LastModified by Organization D etails LastModified Time What is your level of alcohol consumption? Moderate Information not available 05/30/2023 Mental Status None recorded. Family History Relationship Description Onset Age of this Age Resolved Age Notes LastModified by Organization Details LastModified Time Sister Family history of breast cancer [email or web address] Not available 2021 11:22:34 Maternal Grandmother Malignant neoplasm of ovary [email or web address] Not available 2021 11:22:43 Medical History Condition Response Diabetes Y High Blood Pressure Y High Cholesterol Y Immunizations Vaccine Type Date Status Note Provider Nam e and Address Organization Details Recorded Time Tdap 06/24/2010 completed Dhaval Cruz MD [address] [place] [address],[address], [address], [facility] 05/30/2023 15:20:28 Tdap 07/19/2016 completed Dhaval Cruz MD [address] [place] [address],[address], [address], [facility] 05/30/2023 15:20:28 Hep A-Hep B 12/28/2010 completed Dhaval Cruz MD [address] [place] [address],[address] [facility], [place], [address], [facility] 05/30/2023 15:20:28 Hep A-Hep B 06/24/2010 completed Dhaval Cruz MD [address] [place] [address],[address] [place] [address], [address], [facility] 05/30/2023 15:20:28 Hep A-Hep B 07/25/2010 completed Dhaval Cruz MD [address] [place] [address],[address], [place], [address], [facility] 05/30/2023 15:20:28 zoster recombinant 10/23/2022 [facility] 07/25/2023 13:14:35 zoster recombinant 12/25/2022 completed Oumou pepe, [facility] 07/25/2023 13:14:35 Past Encounters Encounter ID Performer Location Encounter Start Date Encounter Closed Date Diagnosis/Indication Diagnosis SNOMED-CT Code Diagnosis ICD10 Code Diagnosis Note [id number] MD [facility] [address] [place] [address] 05/31/2022 11:07:00 06/05/2022 15:44:25 Increased frequency of urination 574694682 R35.0 - UroFlow at next visit - PVR today 0 ml - AUA SS: 19 (QOL 3) -We will continue current course of action with combinatio n therapy. Follow-up in 1 year Nocturia 272410858 R35.1 - As above Urgent cheyanne carlyle to urinate 84502535 R39.15 - As above [id number] MD [facility] [address] [place] [id number] 12/27/2022 10:02:20 12/29/2022 11:02:58 Increased frequency of urination 700249340 R35.0 - Obtain UroCuff - PVR today 4 ml - AUA SS: 28 (2) [Previous visit: 19 (QOL 3)] - Restart combinatio n therapy, follow up in 3 months with UroCuff Nocturia 543531825 R35.1 - As above Urgent cheyanne carlyle to urinate 51489890 R39.15 - As above [id number] Dhaval Cruz MD [facility] [address] [place] [address] 03/29/2023 12:04:24 04/04/2023 09:06:12 [id number] Dhaval Cruz MD [facility] [address] [place] [address] 04/05/2023 09:56:42 04/13/2023 07:37:49 [id number] Dhaval Cruz MD [facility] [address] [place], [place] [address] 05/30/2023 15:13:21 06/05/2023 12:26:38 Increased frequency of urination 475751606 R35.0 - Unable to complete UroCuff - PVR [previous visit: 4 ml] - AUA SS: 9 (QOL 3) [Previous visit: 28 (2)] -Continue combinatio n therapy Nocturia 410968856 R35.1 - As above Urgent cheyanne carlyle to urinate 70064329 R39.15 - As above Health Concerns Section Related Observation LastModified by Organization Detai ls LastModified Time None Recorded Concern Status LastModified by Organization Details LastModified Time None Recorded Advance Directives Directive None Recorded Payers Insurance Date Sequence Insurance Name Policy Number Policy Dobson Covered Member ID Dobson Member ID Guarantor Name 05/30/2023 1 [facility] [id number] Rafa Hickey [id number] Rafa Hickey 06/05/2023 1 [employer] (MEDICARE REPLACEMENT/A DVANTAGE - [facility]) Rafa Hickey Jr [id number] Rafa Hickey Notes Date Note Type Note [...] who provides some history. Dhaval Cruz MD [address] [place] [address],[address], [place], [address], [facility] 05/31/2022 13:15:14 12/27/2022 text/html 62 year old [...] he self-discontinued his medications. Dhaval Cruz MD [address] [place] [address],[address], [place], [address], [facility] 12/27/2022 13:46:55 05/30/2023 text/html 62 [...] some of the history. Dhaval Cruz MD [address] [place] [address],[address], [place], [address], [facility] 05/30/2023 15:53:07
--- OUTSIDE RECORDS SUMMARY | 2025-04-19 14:39 | XMS_ITS | Encounter Summary ---
Author Organization [facility] Address [address] [place] [address]. [place] [address] Care Team Providers Care Business Supervisor Name Role Phone Maya Goyal MD Primary Care Provider Unavailabl Maya Stallworth MD Unavailable Unavailable Mehdi Sen MD Unavailable [phone] Erlin Delcid MD Unavailable Elicia Bedoya [facility] Unavailable Kae Whipple [facility] Unavailable Mehdi BassM Unavailable [phone] Kae Whipple [facility] Unavailable Maya Goyal MD Unavailable Unavailable No Ref-Primary, Physician Primary Care Provider Mehdi Bass DPM Unavailable [phone] [facility] Unavailable Reason for Visit * Reason Comments Medication Refill Encounter Details Date Type Department Care Team (Late st Contact Info) Description 03/22/2020 [facility] [address] [place] [address] Maya Goyal MD INACTIVE IN [place] 08/23/2024 [...] Sex Assigned at Male 09/17/2018 5:00 PM DIALS SUPERVISOR Legal Sex Male 3:11 AM DIALS SUPERVISOR Gender Identity Male 09/17/2018 5:00 PM DIALS SUPERVISOR Sexual Orientation Straight 09/17/2018 5: 00 PM DIALS SUPERVISOR COVID-19 Exposure Response Date Recorded In the last month, have you been in contact with someone who was confirmed or suspected to have Coronavirus / COVID-19? No / Unsure 03/12/2020 11:08 AM CDT documented as of this encounter Miscellaneous Notes * Telephone Encounter - Leah Narvaez RPH - 03/23/2020 4:44 PM CDT Prescription approved per [facility] Refill Protocol. documented in this encounter Plan of Treatment Not on file documented as of this encounter Visit Diagnoses Diagnosis CKD (chronic kidney disease) stage 1, GFR 90 ml/min or greater Chronic kidney disease, Stage I Benign essential hypertension Essential hypertension, benign documented in this encounter Additional Health Concerns Infection Onset Date Last Indicated Resolved Time COVID-19 08/27/2020 08/27/2020 09/17/2020 11:4 0 PM DIALS SUPERVISOR Assessment Noted Time PHQ-9 Depression Total Score: 9 11/19/19 20 7:03 AM DIALS SUPERVISOR documented as of this encounter Care Teams Business Supervisor Relationship Specialty Start Date End Date Maya Goyal MD PCP - General 05/03/04 11/14/22 No Ref-Primary, Physician PCP - General 11/15/22 Maya Goyal MD Assigned PCP 06/27/12 10/17/23 Mehdi Sen MD [address] [place] [address] Assigned Musculoskeletal Provider 07/16/20 12/18/20 Erlin Delcid MD [address] [address] Assigned Surgical Provider 09/12/20 Elicia Bedoya, [facility] [address] [place] [address] 812 [place] [address] Pharmacist Pharmacist 11/09/20 12/06/20 Kae Whipple [facility] [address] [place] [address] Pharmacist Pharmacist 11/30/20 12/06/20 Mehdi Bass DPM [address] [place] [address] [place] [address] Assigned Musculoskeletal Provider 08/14/21 10/27/22 Kae Whipple [facility] [address] [place] [address] Assigned MTM Pharmacist 03/18/22 Maya Goyal MD Assigned Pain Medication Provider 10/02/22 03/23/23 Mehdi Bass DPM [address] [place] [address] [address] [place] [address] Assigned Surgical Provider 10/28/22 [facility] [address] [place] [address] Assigned PCP 10/18/23 12/13/24 documented as of this encounter
--- OUTSIDE RECORDS SUMMARY | 2025-04-19 14:39 | XMS_ITS | Encounter Summary ---
Author Organization [facility] Address [address] [place] [address] Care Team Providers Care Jewel Flat Surfacer Name Role Phone Maya Goyal MD Primary Care Provider UnavailEva Brannon RN Unavailable [phone] Maya Goyal MD Unavailable Unavailable Maya Goyal MD Unavailable Unavailable Mehdi Sen MD Unavailable [phone] Erlin Delcid MD Unavailable [phone] Elicia Bedoya [facility] Unavailable [phone] Kae Whipple [facility] Unavailable Mehdi Bass DPM Unavailable [phone] Kae Whipple [facility] Unavailable [phone] Maya Goyal MD Unavailable Unavailable No Ref-Primary, Physician Primary Care Provider Mehdi BassM Unavailable [phone] [facility] Unavailable Encounter Details Date Type Department Care Team (Late st Contact Info) Description 10/17/2010 [facility] [address] [place] [address] [place] [address] Maya Goyal MD INACTIVE IN [place] 08/23/2024 Social History Tobacco Use Types Packs/Day Years Used Date Smoking Tobacco: Every Day Cigarettes 0.5 20 Alcohol Use Standard Drinks/Week Comments Yes 0 (1 standard drink = 0.6 oz pur e alcohol) Social once every 3 months Sex and Gender Information Value Date Recorded Sex Assigned at Male 09/17/2018 5:00 PM PASTE MIXER Legal Sex Male 3:11 AM PASTE MIXER Gender Identity Male 09/17/2018 5:00 PM PASTE MIXER Sexual Orientation Straight 09/17/2018 5: 00 PM PASTE MIXER documented as of this encounter Plan of Treatment Not on file documented as of this encounter Visit Diagnoses Not on filedocumented in this encounter Additional Health Concerns Infection Onset Date Last Indicated Resolved Time COVID-19 08/27/2020 08/27/2020 09/17/2020 11:4 0 PM PASTE MIXER documented as of this encounter Care Teams Jewel Flat Surfacer Relationship Specialty Start Date End Date Maya Goyal MD PCP - General 05/03/04 11/14/22 Maya Goyal MD INACTIVE IN [place] 08/23/2024 PCP - Assigned PCP 10/22/09 11/26/18 No Ref-Primary, Physician PCP - General 11/15/22 Eva Mckenna RN Clinic Manager Shift Primary Care - CC 02/19/18 Maya Goyal MD Assigned PCP 06/27/12 10/17/23 Mehdi Sen MD [address] [place], [place] [id number] Assigned Musculoskeletal Provider 07/16/20 12/18/20 Erlin Delcid MD [address] [address] Assigned Surgical Provider 09/12/20 Elicia Bedoya, [facility] [address] [place] [address] 8[address] [place], [place] [id number] Pharmacist Pharmacist 11/09/20 12/06/20 Kae Whipple [facility] [address] [place] [address] Pharmacist Pharmacist 11/30/20 12/06/20 Mehdi Bass DPM [id number] [place] [address] [address] [place] [address] Assigned Musculoskeletal Provider 08/14/21 10/27/22 Kae Whipple [facility] [address] [place] [address] Assigned MTM Pharmacist 03/18/22 Maya Goyal MD Assigned Pain Medication Provider 10/02/22 03/23/23 Mehdi Bass DPM [id number] [place] [address] [place] [address] Assigned Surgical Provider 10/28/22 [facility] [address] [place] [address] Assigned PCP 10/18/23 12/13/24 documented as of this encounter
--- OUTSIDE RECORDS SUMMARY | 2025-04-19 14:39 | XMS_ITS | Encounter Summary ---
Author Organization [facility] Address [address] [place] [address]. [place] [address] Care Team Providers Care Poultry And Fish Butcher Name Role Phone Maya Goyal MD Primary Care Provider UnavailMaya Vazquez MD Unavailable Unavailable Erlin Delcid MD Unavailable Mehdi Bass DPM Unavailable [phone] Kae Whipple [facility] Unavailable Maya Goyal MD Unavailable Unavailable No Ref-Primary, Physician Primary Care Provider Medhi Bass DPM Unavailable [phone] [facility] Unavailable Reason for Visit * Reason Comments Medication Refill Encounter Details Date Type Department Care Team (Late st Contact Info) Description 12/05/2021 [facility] [address] [place] [address] Maya Goyal MD INACTIVE IN [place] 08/23/2024 [...] Sex Assigned at Male 09/17/2018 5:00 PM BRANCH MANAGER Legal Sex Male 3:11 AM BRANCH MANAGER Gender Identity Male 09/17/2018 5:00 PM BRANCH MANAGER Sexual Orientation Straight 09/17/2018 5: 00 PM BRANCH MANAGER COVID-19 Exposure Response Date Recorded In the last month, have you been in contact with someone who was confirmed or suspected to have Coronavirus / COVID-19? No / Unsure 11/17/2021 2:07 PM BRANCH MANAGER documented as of this encounter Miscellaneous Notes * Telephone Encounter - Celestino Latham RN - 12/06/2021 6:42 PM CDT Prescription approved per [facility] Refill Protocol. documented in this encounter Plan [...] documented as of this encounter Care Teams Poultry And Fish Butcher Relationship Specialty Start Date End Date Maya Goyal MD PCP - General 05/03/04 11/14/22 No Ref-Primary, Physician PCP - General 11/15/22 Maya Goyal MD Assigned PCP 06/27/12 10/17/23 Erlin Delcid MD [address] [place] [address] Assigned Surgical Provider 09/12/20 Mehdi Bass [place] [address] [facility] [address] [place] [address] Assigned Musculoskeletal Provider 08/14/21 10/27/22 Kae Whipple [facility] [address] [place] [address] Assigned MTM Pharmacist 03/18/22 Maya Goyal MD Assigned Pain Medication Provider 10/02/22 03/23/23 Mehdi [place] [address] [facility] [address] [place] [address] Assigned Surgical Provider 10/28/22 [facility] [address] [place] [address] Assigned PCP 10/18/23 12/13/24 documented as of this encounter
--- OUTSIDE RECORDS SUMMARY | 2025-04-19 14:39 | XMS_ITS | Encounter Summary ---
Author Organization [facility] Address [address] [place] [address] Care Team Providers Care Manager Life Insurance Name Role Phone Maya Goyal MD Primary Care Provider Unavailabl e None Primary Care Provider Unavailnikole e Eva Mckenna RN Unavailable [phone] Maya oGyal MD Unavailable Unavailable Maya Goyal MD Unavailable Unavailable Mehdi Sen MD Unavailable [phone] Erlin Delcid MD Unavailable [phone] Elicia Bedoya [facility] Unavailable [phone] Kae Whipple [facility] Unavailable [phone] Mehdi BassM Unavailable [phone] Kae Whipple [facility] Unavailable [phone] Maya Goyal MD Unavailable Unavailable No Ref-Primary, Physician Primary Care Provider Mehdi Bass DPM Unavailable [phone] [facility] Unavailable Encounter Details Date Type Department Care Team (Late st Contact Info) Description 01/25/2003 [facility] [address] [facility] [address] [place] [address] Maya Goyal MD INACTIVE IN [place] 08/23/2024 ER ENCOUNTER (Primary Dx) Social History [...] Sex Assigned at Male 09/17/2018 5:00 PM CIRCULATION ASSISTANT Legal Sex Male 3:11 AM CIRCULATION ASSISTANT Gender Identity Male 09/17/2018 5:00 PM CIRCULATION ASSISTANT Sexual Orientation Straight 09/17/2018 5: 00 PM CIRCULATION ASSISTANT documented as of this encounter Progress Notes * 01/25/2003 11:59 PM CDTAddended by: CAMERON MURRY on: 02/03/2003,11:27 AM Modules accepted: Progress Notes 00: 00 Emergency Department Encounter-EDWARD ERVIN () [Entered: 00:00 Transcri ption ([facility])] : 56 PRIMARY MD: Maya Goyal MD [...] No known d rug allergies. 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 He is supposed to work tonight. He [...] re-evaluation. [id number] EDWARD DICKINSON MD [place]: Document: [id number] [place], [place] Name: CASSIE RIVAS EMERGENCY ROOM ENCOUNTER Page 2 of 2 LCN: ERB DSC: [place], [place] Name: MR#: : Admit Date: CASSIE RIVAS [id number] 01/25/2003 Doctor: EDWARD DICKINSON MD EMERGENCY ROOM ENCOUNTER Page 1 of 2 Electronically filed by Cameron Murry 02/03/2003 11:27 AM documented in this encounter Plan of Treatment Not on file documented as of this encounter Visit Diagnoses Diagnosis ER ENCOUNTER- Primary documented in this encounter Additional Health Concerns Infection Onset Date Last Indicated Resolved Time COVID-19 08/27/2020 08/27/2020 09/17/2020 11:4 0 PM CIRCULATION ASSISTANT documented as of this encounter Care Teams Manager Life Insurance Relationship Specialty Start Date End Date Maya Goyal MD PCP - General 05/03/04 11/14/22 None PCP - General 12/01/02 05/02/04 Maya Goyal MD INACTIVE IN [place] 08/23/2024 PCP - Assigned PCP 10/22/09 11/26/18 No Ref-Primary, Physician PCP - General 11/15/22 Eva Mckenna, [facility] Steam Shovel Runner Primary Care - CC 02/19/18 Maya Goyal MD Assigned PCP 06/27/12 10/17/23 Mehdi Sen MD [address] [place] [address] Assigned Musculoskeletal Provider 07/16/20 12/18/20 Eriln Delcid MD [address] [facility] [address] [place] [address] Assigned Surgical Provider 09/12/20 Elicia Bedoya, [facility] [address] [facility] 8[address] [place] [address] Pharmacist Pharmacist 11/09/20 12/06/20 Kae Whipple [facility] [address] [place] [address] Pharmacist Pharmacist 11/30/20 12/06/20 Mehdi Bass DPM [address] [facility] [address] [place] [address] Assigned Musculoskeletal Provider 08/14/21 10/27/22 Kae Whipple [facility] [address] [place] [address] Assigned MTM Pharmacist 03/18/22 Maya Goyal MD Assigned Pain Medication Provider 10/02/22 03/23/23 Mehdi Bass DPM [address] [facility] [address] [place] [address] Assigned Surgical Provider 10/28/22 [facility] [address] [place] [address] Assigned PCP 10/18/23 12/13/24 documented as of this encounter
--- OUTSIDE RECORDS SUMMARY | 2025-04-19 14:39 | XMS_ITS | Encounter Summary ---
Author Organization [facility] Address [address] [place] [address]. [place] [address] Care Team Providers Care Radio Interference Investigator Name Role Phone Maya Goyal MD Primary Care Provider UnavailMaya Vazquez MD Unavailable Unavailable Erlin Delcid MD Unavailable [phone] Mehid Bass DPM Unavailable [phone] [facility] Unavailable [phone] Maya Goyal MD Unavailable Unavailable No Ref-Primary, Physician Primary Care Provider Mehdi Bass DPM Unavailable [phone] [facility] Unavailable Encounter Details Date Type Department Care Team (Late st Contact Info) Description 01/12/2022 [facility] [address] [place] [address] Maya Goyal MD [place]IVE IN [place] 08/23/2024 Social History Tobacco Use Types Packs/Day [...] Sex Assigned at Male 09/17/2018 5:00 PM WATCHMAKER APPRENTICE Legal Sex Male 3:11 AM WATCHMAKER APPRENTICE Gender Identity Male 09/17/2018 5:00 PM WATCHMAKER APPRENTICE Sexual Orientation Straight 09/17/2018 5: 00 PM WATCHMAKER APPRENTICE documented as of this encounter Plan of Treatment Not on file documented as of this encounter Visit Diagnoses Not on filedocumented in this encounter Additional Health Concerns Assessment Noted Time PHQ-9 Depression Total Score: 10 021 2:58 PM CDT documented as of this encounter Care Teams Radio Interference Investigator Relationship Specialty Start Date End Date Maya Goyal MD PCP - General 05/03/04 11/14/22 No Ref-Primary, Physician PCP - General 11/15/22 Maya Goyal MD Assigned PCP 06/27/12 10/17/23 Erlin Delcid MD [id number] [address] Assigned Surgical Provider 09/12/20 Mehdi Bass DPM [id number] [facility] [address] [place] [id number] Assigned Musculoskeletal Provider 08/14/21 10/27/22 Kae Whipple [facility] [address] [place] [address] Assigned MTM Pharmacist 03/18/22 Maya Goyal MD Assigned Pain Medication Provider 10/02/22 03/23/23 Mehdi Bass DPM [id number] [facility] [address] [place] [address] Assigned Surgical Provider 10/28/22 [facility], [address] [address] Assigned PCP 10/18/23 12/13/24 documented as of this encounter
--- OUTSIDE RECORDS SUMMARY | 2025-04-19 14:39 | XMS_ITS | Clinical Summary ---
Author Organization [facility] Address [address] [place] [address] Care Team Providers Care Science Professor Name Role Phone Shar Hoff MD Unavailable [phone] Doctor, No Primary Care Provider Unavailabl e [...] Additional history exists COVID-19 Vaccine ( - season) 2024 Influenza Vaccine (#1) 2025 08/04/2003 Adult Tetanus Booster 07/19/2026 07/19/2016, 010 Zoster Vaccine Completed 12/25/2022, 10/23/2022 Meningococcal B Vaccine Aged Out No l onger eligible based on patient's age to complete this topic Procedures Procedure Name Priority Date/Time Associated Diagnosis Comments BASIC METAB PROFILE STAT 07/19/2016 4 :45 AM CDT from Last 3 Months or Most Recently Relevant to Health Maintenance Results * (ABNORMAL) Basic Metabolic Profile (07/19/2016 4:45 AM CDT) Sodium 140 136 - 145 mMol/L 07/19/2016 5:16 AM CDT [facility] Potassium 4.0 3.5 - 5.1 mMol/L 07/19/2016 5:16 AM CDT [facility] Chloride 104 98 - 112 mMol/L 07/19/2016 5:16 AM CDT [facility] Carbon Dioxide 25 21 - 32 mMol/L 07/19/2016 5:16 AM [facility] BUN (Urea Nitro) 17 7 - 24 mg/dL 07/19/2016 5:16 AM [facility] Creatinine 0.83 0.70 - 1.30 mg/dL 07/19/2016 5:16 AM [facility] Est GFR (CKD-EPI) >60 >60 mL/min 07/19/2016 5:16 AM [facility] EST GFR IF AM >60 >60 mL/min 07/19/2016 5:[address] [facility] Glucose 99 74 - 106 mg/dL 07/19/2016 5:16 AM [facility] Calcium, Serum 8.4(L) 8.5 - 10.1 mg/dL 07/19/2016 5:16 AM [facility] Anion Gap 11.0 0.0 - 15.0 mMol/L 07/19/2016 5:16 AM [facility] Blood 07/19/2016 4:45 AM CDT 07/19/2016 4:48 AM CDT Brigette Pena MD CHEMISTRY ORDERABLE Final Re sult [facility] [address] [id number] from Last 3 Months or Most Recently Relevant to Health Maintenance Insurance [facility] MEDICARE ADVANTAGE Advance Directives For more information, please contact: [phone] * Full Code (Latest Code Status on File) Date Activated Date Inactivated Comments 07/19/2016 6:14 AM 07/19/2016 4:02 PM Question Answer Comments How was code status determined? Patient Care Teams Science Professor Relationship Specialty Start Date End Date Doctor, No No ad PCP - General Radiology 01/01/23 Shar Hoff MD [address] [place] [address] [address] [place] [address] Neurology 01/01/23
--- OUTSIDE RECORDS SUMMARY | 2025-04-19 14:39 | XMS_ITS | Encounter Summary ---
Author Organization [facility] Address [address] [place] [address]. [place] [address] Care Team Providers Care Pipe Line Walker Name Role Phone Maya Goyal MD Primary Care Provider Unavailabl Maya Stallworth MD Unavailable Unavailable Erlin Delcid MD Unavailable [phone] Mehdi Bass DPM Unavailable [phone] Kae Whipple [facility] Unavailable [phone] Maya Goyal MD Unavailable Unavailable No Ref-Primary, Physician Primary Care Provider Mehdi Bass DPM Unavailable [phone] [facility] Unavailable Encounter Details Date Type Department Care Team (Late st Contact Info) Description 09/06/2021 [facility] [address] [place] [address] Eden Lei, [facility] Social History Tobacco Use Types Packs/Day Years [...] Sex Assigned at Male 09/17/2018 5:00 PM COMPOUNDING AND FINISHING SUPERVISOR Legal Sex Male 3:11 AM COMPOUNDING AND FINISHING SUPERVISOR Gender Identity Male 09/17/2018 5:00 PM COMPOUNDING AND FINISHING SUPERVISOR Sexual Orientation Straight 09/17/2018 5: 00 PM COMPOUNDING AND FINISHING SUPERVISOR COVID-19 Exposure Response Date Recorded In the last month, have you been in contact with someone who was confirmed or suspected to have Coronavirus / COVID-19? No / Unsure 08/17/2021 12:57 PM COMPOUNDING AND FINISHING SUPERVISOR documented as of this encounter Plan of Treatment Not on file documented as of this encounter Visit Diagnoses Not on filedocumented in this encounter Additional Health Concerns Assessment Noted Time PHQ-9 Depression Total Score: 10 021 2:58 PM CDT documented as of this encounter Care Teams Pipe Line Walker Relationship Specialty Start Date End Date Maya Goyal MD PCP - General 05/03/04 11/14/22 No Ref-Primary, Physician PCP - General 11/15/22 Maya Goyal MD Assigned PCP 06/27/12 10/17/23 Erlin Delcid MD [address] [address] Assigned Surgical Provider 09/12/20 Mehdi Bass DPM [id number] [address] [place] [id number] Assigned Musculoskeletal Provider 08/14/21 10/27/22 K[facility] Whipple [facility] [address] [place], [place] [address] Assigned MTM Pharmacist 03/18/22 Maya Goyal MD Assigned Pain Medication Provider 10/02/22 03/23/23 Mehdi Bass DPM [address] [place] [address] Assigned Surgical Provider [facility] [address] [address] Assigned PCP 10/18/23 12/13/24 documented as of this encounter
[2025-04-19 14:41] VITALS: BP 132/87; PULSE 70; RESP 18; TEMP 35.8; O2SAT 97; BMI 40.4
[2025-04-19] MEDS: OXYCODONE 1 MG/ML ORAL SOLN 5 MG PO (14:55)
--- NOTE | 2025-04-19 14:57 | ED.GENADULT ---
HPI - General Adult General Chief complaint: Urogenital Problems, Male Stated complaint: Urinary issues Time Seen by Provider: 04/19/25 14:38 History of Present Illness HPI narrative: Patient is a 64 year white male who had his right knee replaced 2 days ago in [place]. He has been unable to urinate. He comes in by ambulance with a complaint of needing a catheter. He also has not had a bowel movement but he has been taking what sounds like MiraLax and stool softener. He has other family members at home with him he lives in [facility]. he has had no shortness of breath, no chest pain, no fevers or chills, no ability to urinate as mention. He has got lower suprapubic tenderness and distention. He is obese Related Data Home Medications ?Medication ?Instructions ?Recorded ?Confirmed duloxetine 60 mg capsule,delayed 60 mg PO DAILY 06/28/23 11/23/24 release finasteride 5 mg tablet 5 mg PO 06/28/23 08/02/23 insulin aspart 8 unit subcut BID 06/28/23 11/23/24 (niacinamide)(U-100) 100 unit/mL(3 mL) subcutaneous pen (Fiasp FlexTouch U-100 Insulin) insulin glargine 100 unit/mL (3 unit subcut 06/28/23 08/02/23 mL) subcutaneous pen (Lantus Solostar U-100 Insulin) lisinopril 10 1 tab PO DAILY 06/28/23 11/23/24 mg-hydrochlorothiazide 12.5 mg tablet metformin 500 mg tablet 1,000 mg PO BID 06/28/23 11/23/24 pen needle, diabetic 31 gauge x #1,200 ea 06/28/23 08/02/23 5/16 (UltiCare Pen Needle) carvedilol 25 mg tablet 50 mg PO BID 05/03/24 11/23/24 furosemide 20 mg tablet 20 mg PO QAM 05/03/24 11/23/24 tamsulosin 0.4 mg capsule 0.4 mg PO DAILY 05/03/24 11/23/24 empagliflozin 25 mg tablet 25 mg PO DAILY 11/23/24 11/23/24 (Jardiance) Previous Rx's ?Medication ?Instructions ?Recorded ciprofloxacin 0.3 %-dexamethasone 4 drp Otic (ear-left) BID 7 days 11/23/24 0.1 % ear drops,suspension #7.5 mL Allergies Allergy/AdvReac Type Severity Reaction Status Date / Time No Known Drug Allergies Allergy Verified 03/31/25 11:09 Review of Systems Status of ROS: Reports: 6 or more systems reviewed and unremarkable except as noted in History and below [facility] Social History Smoking Status: Unknown if ever smoked Non-prescribed substance use: denies use Exam Narrative: Exam Narrative: Objective: In general the patient is in moderate distress and discomfort a catheter was placed with egress of a urine. He had marked relief His vital signs look unremarkable He is alert orient x3 no distress talking easily not complaining of any pain or discomfort now. His surgical site is bandaged and appears in good condition. Const: Vital Signs, click to edit/add: Vital Signs - 24 hr 04/19/25 14:41 Temperature 96.4 F L Pulse Rate [Pulse Oximeter] 70 Respiratory Rate 18 Blood Pressure [Le ft Upper Arm] 132/87 Pulse Oximetry 97 Oxygen Delivery Me thod Room Air Course Vital Signs Vital signs: Initial Vital Signs Temperature 96.4 F L 04/19/25 14:41 Temperature Source Temporal Artery Scan 04/19/25 14:41 Pulse Rate 70 04/19/25 14:41 Respiratory Rate 18 04/19/25 14:41 Blood Pressure 132/87 04/19/25 14:41 Blood Pressure Mean 102 04/19/25 14:41 Blood Pressure Position Supine 04/19/25 14:41 Pulse Oximetry 97 04/19/25 14:41 Oxygen Delivery Method Room Air 04/19/25 14:41 Vital Signs Temperature 96.4 F L 04/19/25 14:41 Pulse Rate 70 04/19/25 14:41 Respiratory Rate 18 04/19/25 14:41 Blood Pressure 132/87 04/19/25 14:41 Pulse Oximetry 97 04/19/25 14:41 Oxygen Delivery Method Room Air 04/19/25 14:41 Temperature 96.4 F L 04/19/25 14:41 Pulse Rate 70 04/19/25 14:41 Respiratory Rate 18 04/19/25 14:41 Blood Pressure 132/87 04/19/25 14:41 Pulse Oximetry 97 04/19/25 14:41 Oxygen Delivery Method Room Air 04/19/25 14:41 Medical Decision Making MDM Narrative Medical decision making narrative: Patient is a 64 year white male 2 days status post knee replacement who has acute urinary retention, catheter has been placed, he got immediate relief from this. He also has not a bowel movement for last couple of days but this is normal postoperatively I think I would just continue to use his MiraLax and stool softener, his abdomen is benign at this point. His vital signs are stable. He is requesting get the catheter out before he goes home. We discussed that he certainly could have reocclusion any could have recurrent retention and need another catheter. He again wishes to have it out. I would recommend we let the urine drained completely. Before this is removed, and my recommendation would be to keep it in for least 24 hours then remove the catheter if he is doing better. He wishes to have it out and then healed seek a ride home. I think he can be discharged once his catheter is not draining and then removed. Discharge Plan Discharge Clinical Impression: Acute urinary retention, History of knee replacement Patient Disposition: Home w/ Parent or Adult Condition: Improved Additional Instructions: Follow-up postoperatively as recommended by your surgeon. Continue the stool softener and bowel medication, if you have recurrent urinary tension you can return we can put a catheter back in again. Activity Level: Light activity Discharge Diet: Diabetic Prescriptions: No Action metformin 500 mg tablet 1,000 mg PO BID duloxetine 60 mg capsule,delayed release(DR/EC) 60 mg PO DAILY Fiasp FlexTouch U-100 Insulin 100 unit/mL (3 mL) insulin pen 8 unit subcut BID insulin glargine [Lantus Solostar U-100 Insulin] 100 unit/mL (3 mL) insulin pen subcut lisinopril-hydrochlorothiazide 10-12.5 mg tablet 1 tab PO DAILY finasteride 5 mg tablet 5 mg PO (DME) pen needle, diabetic [UltiCare Pen Needle] 31 gauge x 5/16 needle See Rx Instructions .ROUTE DIRECTED Qty: 1200 Rx Instructions: As directed Jardiance 25 mg tablet 25 mg PO DAILY ciprofloxacin-dexamethasone 0.3-0.1 % drops,suspension 4 drp Otic (ear-left) BID 7 Days Qty: 7.5 0RF carvedilol 25 mg tablet 50 mg PO BID furosemide 20 mg tablet 20 mg PO QAM tamsulosin 0.4 mg capsule 0.4 mg PO DAILY Follow Up/Referrals: Caryl Shi DO [Primary Care Provider, Family Practice] Stand Alone Forms: ITYZ Info Instructions
== END 2025-04-19 16:40 | disposition home or self-care (01) ==
PROVIDERS: Emergency Provider Family Medicine; PCP Family Medicine
DX: R33.9 Retention of urine, unspecified (principal)
CPT/HCPCS: 51702; 99283; 99284; A9270

== ENCOUNTER 2025-05-08 13:00 | Outpatient (RCR) | payer MEDICARE, SELFPAY | END 2025-06-04 12:16 | disposition home or self-care (01) | PROVIDERS: PCP Family Medicine | DX: Z47.1 Aftercare following joint replacement surgery (principal); Z96.651 Presence of right artificial knee joint; Z51.89 Encounter for other specified aftercare | CPT/HCPCS: 97110; 97116; 97161 ==

== ENCOUNTER 2025-05-20 22:14 | Emergency (ER) | payer MEDICARE, SELFPAY ==
--- OUTSIDE RECORDS SUMMARY | 2025-05-18 07:30 | XMS_ITS ---
Author Organization [facility] Address [address] [place] [address] [address] [place] [address] Care Team Providers Care Dinkey Operator Name Role Phone Caryl Shi Primary Care Provider UnavailKarlo Wilkins Unavailable [phone] Catia Swift MD Unavailable Unavailable Michael Suárez Unavailable [phone] Allergies No Known Allergies REASON FOR VISIT Neck pain, Low back pain, Bilateral knee pain Medications Medication SIG (Take, Route, Frequency, Duration) Notes Start Date End Date Status Finasteride 5 MG TAKE ONE TABLET BY MOUTH ONCE DAILY Oral; Duration: 30 Days Active DULoxetine HCl 60 MG Oral; Duration: 30 Days Active Spironolactone 50 MG Oral; Duration: 30 Days Active Furosemide 20 MG Oral; Duration: 90 Days Active oxyCODONE HCl 5 MG 1 tablet as needed Orally (ok to fill 05/18/2025) every 8-12 hours; Duration: 30 days Low back pain, unspecified M54.50, G89.29 PRINTED 05/18/2025 Active Tamsulosin HCl 0.4 MG Oral; Duration: 90 Days Active traZODone HCl 100 MG Oral; Duration: 90 Days Active Lantus SoloStar 100 UNIT/ML Subcutaneous; Duration: 17 Days Active Carvedilol 25 MG Oral; Duration: 90 Days Active amLODIPine Besylate 5 MG Oral; Duration: 90 Days Active tiZANidine HCl 4 MG 1 tablet as needed Orally once a day at bedtime; Duration: 30 days Active Meloxicam 7.5 MG 1 tablet Orally Once a day; Duration: 30 days Active Methocarbamol 750 MG 1 tablet Orally(muscle relaxant for daytime use, Do not take with Tizanidine- only take 1 tablet at a time) Twice a day; Duration: 30 days Active UltiCare Short Pen Gwynn 31G X 8 MM DIRECTED; Duration: 30 Days Active Social History Tobacco Use: Social History Observation Description Date Details (start date - stop date) Unknown Tobacco Use/Smoking: Question Answer Notes Are you a Uses tobacco in other forms Additional Findings: Tobacco User e-Cigarette Vital Signs Height 74 in 05/18/2025 Weight 315 lbs 05/18/2025 BMI 40.44 kg/m2 05/18/2025 Blood pressure systolic 132 mm Hg 05/18/20 Blood pressure diastolic 82 mm Hg 025 Encounters Encounter Location Date Provider Diagnosis [address] [facility] [address] [facility] [address] [place] [address] 05/18/2025 Michael Suárez Unilateral primary osteoarthritis, right knee M17.11 ; Unilateral primary osteoarthritis, left knee M17.12 ; Spondylolysis, lumbosacral region M43.07 and Other chronic pain G89.29 Assessments Encounter Date Diagnosis (ICD Code) Assessment Notes Treatment Notes Treatment Clinical Notes Section Notes 05/18/2025 Unilateral primary osteoarthritis, right knee (ICD-10 - M17.11) 05/18/2025 Unilateral primary osteoarthritis, left knee (ICD-10 - M17.12) 05/18/2025 Spondylolysis, lumbosacral region (ICD-10 - M43.07) 05/18/2025 Other chronic pain (ICD-10 - G89.29) Rafa Calabrese) returns to clinic today for a follow-up evaluation regarding his chronic neck, low back, and bilateral knee pain. I have reviewed the [facility] database and did not find any inconsistencies. [...] sooner if needed. Plan: 1. Refill oxycodone 2. Follow up in two months (TE sent [...] call with any questions, problems or concerns. 05/18/2025 Italo Latif in, am serving as a scribe to document services personally performed by Michael Suárez NP, based upon my observations and the provider's statements to me. All documentation has been reviewed by the aforementioned ATTRACTION WORKER prior to being entered into the official medical record. I, Michael Suárez NP, attest that the [...] tablet as needed Orally (ok to fill 05/18/2025) every 8-12 hours; Duration: 30 days 05/18/2025 Low back pain, unspecified M54.50, G89.29 PRINTED Treatment Notes Assessment Notes Other chronic pain Rafa Calabrese) returns to clinic today for a follow-up evaluation regarding his chronic neck, low back, and bilateral knee pain. I have reviewed the [facility] database and did not find any inconsistencies. [...] sooner if needed. Plan: 1. Refill oxycodone 2. Follow up in two months (TE sent [...] call with any questions, problems or concerns. Italo Latif a m serving as a scribe to document services personally performed by Michael Suárez NP, based upon my observations and the provider's statements to me. All documentation has been reviewed by the aforementioned ATTRACTION WORKER prior to being entered into the official medical record. I, Michael Suárez NP, attest that the [...] Reason: Progress Notes * Rafa RIVAS JrDOB: [birth year] (64 yo M)Acc No.[id number]:05/18/2025 Progress Notes Patient: Rafa GENTILE Provider: Gordon Suárez NP :1960 A ge:64 Y S ex:Male Date:05/18/2025 Phone: Address:[address] [place] [address], [id number] Pcp:Caryl Shi Subjective: * Chief Complaints: * N maria luz painLow back painBilateral knee pain * HPI: C linic visit: Rafa Calabrese) is a 64-year-old male who returns to clinic today for a follow-up evaluation regarding his chronic low back, neck, and knee pain. Interval History: Vinod's pain has remained persistent and bothersome in the interim, but well managed by medication. He otherwise presents to the clinic for a medication. Of note, Vinod underwent a right TKA on 04/15/2025, which he reports a post op infection. Vinod continues to follow-up with wound care 1x/wk, and is healing well. Procedure History: Several lumbar injections at [facility] have not been helpful. He also completed cervical injections at [facility]. Genicular RFAs have been completed in the past without relief - 01/01/2024 Lumbar injection ([facility]): good relief - 11/21/2022 L5-S1 FANTASMA: 60-70% relief - 12/07/2022 bilateral knee injections (no relief) - 04/13/2023 Right knee injection: 60% relief, spiked blood pressure Previous Consults: Srinath Curiel MD of [facility] for knee treatment. Dr. Hoff (Surgeon) discussed SCS vs. L5-S1 RFA Previous Therapy: He completed knee therapy in 2019 without benefit. He has also completed therapy at [facility]. Current Pain Medications: Oxycodone 5mg BID PRN, Gabapentin, Methocarbamol 750mg BID, Meloxicam 7.5mg QD, Tizanidine 4mg QHS, Meloxicam BID PRN, NyQuil Previous Pain Medications: Amitriptyline. D epression Screening: Patient did not complete. P QRS MEASURE: 154,155 Fall Risk H [...] R ight knee meniscus cartilage x2 2014, 2018Left hamstring [...] W ork Status: Keisha roque of Employment: [employer]. 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 Employment Status: not working. * Medications: T akingtiZANidine HCl 4 MG Tablet 1 tablet as needed Orally once a day at bedtime Meloxicam 7.5 MG Tablet 1 tablet Orally Once a day Methocarbamol 750 MG Tablet 1 tablet Orally(muscle relaxant for daytime use, Do not take with Tizanidine- only take 1 tablet at a time) Twice a day UltiCare Short Pen Gwynn 31G X 8 MM Miscellaneous DIRECTED Lantus [...] tablet as needed Orally every 8-12 hours (ok to fill 04/18/2025), Notes to Pharmacist: Low back pain, unspecified [...] Twice a day Taking UltiCare Short Pen Gwynn 31G X 8 MM Miscellaneous DIRECTED Taking [...] tablet as needed Orally every 8-12 hours (ok to fill 04/18/2025), Notes to Pharmacist: Low back pain, unspecified M54.50, G89.29 PRINTEDMedication List reviewed and reconciled with the patient * Allergies: N .K.D.A.no[Allergies Verified] Objective: * Vitals: H t: 74 in, Wt:315lbs, BMI:40.44, BP:132/82mm Hg, VAS-Today:71-10, VAS-Av 1- 10, VAS-High: 10 1-10. * Examination: M usculoskeletal: Constitutional: m orbidly obese body habitus, well groomed, in no acute distress. Musculoskeletal: N ormal gait and station, sits comfortably. Skin: b andage wrapped on the right knee following a right TKA infection. Neurological N ormal coordination upper extremities, normal [...] Plan: * Treatment: 2. O thers Notes: IItalo, am serving as a scribe to document services personally performed by Michael Suárez NP, based upon my observations and the provider's statements to me. All documentation has been reviewed by the aforementioned ATTRACTION WORKER prior to being entered into the official medical record. Kiko, Michael Suárez NP, attest that the [...] ow Back Oswestry O swestry Score (0-100) 6 0,?OSCAR Interpretation 6 0-79 (Crippled). Counseling: B CA Care goal follow-up plan: A rodger Normal BMI Follow-up L ifestyle education regarding diet Patient declined. * Follow Up: 2 Months * Billing Information: * Visit Code: 29541 Established Patient level 3. * Procedure Codes: * Sign off status: Completed true * Provider: Gordon Suárez NP Date: 05/18/2025 Generated for Andi fields/Mona/Jessica on: 05/20/2025 10:17 PM CDT History and Physical Notes * HPI (History of Present Illness) Category Sub-Category Detail Notes Category Not es Clinic visit Rafa Calabrese) is a 64-year-old male who returns to clinic today for a follow-up evaluation regarding his chronic low back, neck, and knee pain. Interval History: Vinod's pain has remained persistent and bothersome in the interim, but well managed by medication. He otherwise presents to the clinic for a medication. Of note, Vinod underwent a right TKA on 04/15/2025, which he reports a post op infection. Vinod continues to follow-up with wound care 1x/wk, and is healing well. Procedure History: Several lumbar injections at [facility] have not been helpful. He also completed cervical injections at [facility]. Genicular RFAs have been completed in the past without relief - 01/01/2024 Lumbar injection ([facility]): good relief - 11/21/2022 L5-S1 FANTASMA: 60-70% relief - 12/07/2022 bilateral knee injections (no relief) - 04/13/2023 Right knee injection: 60% relief, spiked blood pressure Previous Consults: Srinath Curiel MD of [facility] for knee treatment. Dr. Hoff (Surgeon) [...] past year?: No Plan of Care:: Documented Depression Screening Patient did not complete Examination Category Sub-Category Detail Notes Category Not es Musculoskeletal Constitutional: morbidly obese b angie habitus, well groomed, in no acute distress Musculoskeletal: Normal gait and stat ion, sits comfortably Skin: bandage wrapped on t he right knee following a right TKA infection Neurological Normal coordination upper extremities, normal coordination lower extremities, alert and oriented x3, normal mood and affect
[2025-05-20] VITALS (10 sets, daily range): BP systolic 95–121; BP diastolic 56–73; PULSE 83; RESP 16–20; TEMP 37.2; O2SAT 84–95; BMI 40.4
--- NOTE | 2025-05-20 22:15 | ED.GENADULT ---
HPI - General Adult General Time Seen by Provider: 22:15 <Homar Elias MD - Last Filed: 05/24/25 00:03> Date Seen: 05/20/25 <Homar Elias MD - Last Filed: 05/24/25 00:03> Chief complaint: Skin/Abscess/Foreign Body <Homar Elias MD - Last Filed: 05/24/25 00:03> Stated complaint: Syncope <Homar Elias MD - Last Filed: 05/24/25 00:03> Time Seen by Provider: 05/20/25 22:15 <Homar Elias MD - Last Filed: 05/24/25 00:03> Source: patient, EMS and old records reviewed <Homar Elias MD - Last Filed: 05/24/25 00:03> Mode of arrival: EMS <Homar Elias MD - Last Filed: 05/24/25 00:03> Limitations: no limitations <Homar Elias MD - Last Filed: 05/24/25 00:03> History of Present Illness HPI narrative: 64-year-old male who comes in today for syncopal episode. Patient with knee replacement about a month ago, had a fall couple weeks ago, did not hit his head or pass out. Tonight he had a couple of drinks and also took oxycodone, subsequently got up to go to the bathroom and felt weak, reported loss of consciousness but no fall. Per EMS, initial blood pressure 80 systolic, patient was awake and responding on their initial arrival. Patient self complains of pain in the right leg which he says has been going on since surgery. Denies fever, chills, chest pain, nausea, vomiting, diarrhea <Homar Elias MD - Last Filed: 05/24/25 00:03> Related Data Home medications: Home Medications ?Medication ?Instructions ?Recorded ?Confirmed metformin 500 mg tablet 1,000 mg PO BID 06/28/23 05/20/25 pen needle, diabetic 31 gauge x #1,200 ea 06/28/23 05/20/25 5/16 (UltiCare Pen Needle) carvedilol 25 mg tablet 50 mg PO BID 05/03/24 05/20/25 furosemide 20 mg tablet 20 mg PO QAM 05/03/24 05/20/25 empagliflozin 25 mg tablet 25 mg PO DAILY 11/23/24 05/20/25 (Jardiance) acetaminophen 500 mg tablet 1,000 mg PO Q6H 05/20/25 05/20/25 aspirin 81 mg tablet,delayed 81 mg PO BID 05/20/25 05/20/25 release blood-glucose sensor (Dexcom G7 05/20/25 05/20/25 Sensor device) duloxetine 30 mg capsule,delayed 30 mg PO DAILY 05/20/25 05/20/25 release gabapentin 300 mg capsule 300 mg PO 3XD 05/20/25 05/20/25 insulin aspart U-100 100 unit/mL 10 unit subcut BID 05/20/25 05/20/25 (3 mL) subcutaneous pen insulin degludec 200 unit/mL (3 77 unit subcut QPM 05/20/25 05/20/25 mL) subcutaneous pen (Tresiba FlexTouch U-200 insulin) lisinopril 20 1 tab PO DAILY 05/20/25 05/20/25 mg-hydrochlorothiazide 25 mg tablet oxycodone 5 mg tablet 5 mg PO Q12H 05/20/25 05/20/25 pantoprazole 40 mg tablet,delayed 40 mg PO DAILY 05/20/25 05/20/25 release rosuvastatin 10 mg tablet 10 mg PO QPM 05/20/25 05/20/25 trazodone 100 mg tablet 100 mg PO HS 05/20/25 05/20/25 duloxetine 60 mg capsule,delayed 60 mg PO DAILY 05/21/25 05/21/25 release <Homar Elias MD - Last Filed: 05/24/25 00:03> Allergies/adverse reactions: Allergies Allergy/AdvReac Type Severity Reaction Status Date / Time No Known Drug Allergies Allergy Verified 05/20/25 22:59 <Homar Elias MD - Last Filed: 05/24/25 00:03> [facility] Medical History: Medical History (Updated 05/21/25 @ 14:40 by Yoko Daly MD) Hamstring injury ?S76.309A - Unspecified injury of muscle, fascia and tendon of the posterior muscle group at thigh level, unspecified thigh, initial encounter (ICD-10) Chronic pain ?G89.29 - Other chronic pain (ICD-10) Opioid dependence ?F11.20 - Opioid dependence, uncomplicated (ICD-10) Type 2 diabetes mellitus with stage 1 chronic kidney disease, without long-term current use of insulin ?E11.22 - Type 2 diabetes mellitus with diabetic chronic kidney disease (ICD-10) ?N18.1 - Chronic kidney disease, stage 1 (ICD-10) Peripheral neuropathy ?G62.9 - Polyneuropathy, unspecified (ICD-10) 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 mellitus, limited to breakdown of skin ?E11.621 - Type 2 diabetes mellitus with foot ulcer (ICD-10) ?L97.501 - Non-pressure chronic ulcer of other part of unspecified foot limited to breakdown of skin (ICD-10) Ectatic abdominal aorta ?I77.811 - Abdominal aortic ectasia (ICD-10) Hypertriglyceridemia ?E78.1 - Pure hyperglyceridemia (ICD-10) Primary osteoarthritis of both knees ?M17.0 - Bilateral primary osteoarthritis of knee (ICD-10) Controlled substance agreement signed ?Z79.899 - Other long-term (current) drug therapy (ICD-10) Depression ?F32.A - Depression, unspecified (ICD-10) Lesion of ulnar nerve, unspecified upper limb ?G56.20 - Lesion of ulnar nerve, unspecified upper limb (ICD-10) Lesion of sciatic nerve ?G57.00 - Lesion of sciatic nerve, unspecified lower limb (ICD-10) Hyperlipidemia ?E78.5 - Hyperlipidemia, unspecified (ICD-10) Left hamstring injury ?S76.302A - Unspecified injury of muscle, fascia and tendon of the posterior muscle group at thigh level, left thigh, initial encounter (ICD-10) Facet arthritis of cervical region ?M47.812 - Spondylosis without myelopathy or radiculopathy, cervical region (ICD-10) Foot drop, left foot ?M21.372 - Foot drop, left foot (ICD-10) Benign essential hypertension ?I10 - Essential (primary) hypertension (ICD-10) Anxiety about blushing ?R45.89 - Other symptoms and signs involving emotional state (ICD-10) <Homar Elias MD - Last Filed: 05/24/25 00:03> Surgical History: Surgical History (Updated 05/21/25 @ 14:40 by Yoko Daly MD) History of total knee arthroplasty ?Z96.659 - Presence of unspecified artificial knee joint (ICD-10) History of right knee surgery ?Z98.890 - Other specified postprocedural states (ICD-10) History of left knee surgery ?Z98.890 - Other specified postprocedural states (ICD-10) Status post total knee replacement, right ?Z96.651 - Presence of right artificial knee joint (ICD-10) <Homar Elias MD - Last Filed: 05/24/25 00:03> Social History: Social History Smoking Status: Former smoker Second hand tobacco smoke exposure: No How often do you have a drink containing alcohol: 2-3 times a week How often do you have six or more drinks on one occasion: Weekly AUDIT-C Alcohol total score: 6 Non-prescribed substance use: denies use <Homar Elias MD - Last Filed: 05/24/25 00:03> Exam Narrative: Exam Narrative: General: Well-developed and well-nourished, no acute distress Head: Atraumatic and normocephalic Eyes: Pupils are equal reactive, extraocular motions intact, conjunctiva clear ENT: External nose and ears are normal, posterior pharynx without erythema or exudate Neck: No midline cervical tenderness, full spontaneous range of motion the neck, trachea midline, no adenopathy Heart: Regular rate and rhythm no murmurs or thrills Lungs: Clear to auscultation bilaterally without wheezes or crackles Abdomen: Soft, nontender, nondistended with active bowel sounds Musculoskeletal: Right leg swelling, about 1 cm of dehiscence of the central wound with some purulent drainage, diffuse erythema and induration of the anterior lower leg. Two what appeared to be ruptured blisters of the anterior lower leg, neither with purulent drainage. Neurologic: Awake, alert, and oriented x3, no gross focal neurologic deficits, cranial nerves intact as tested Psych: Mood and affect are appropriate Skin: No rashes <Homar Elias MD - Last Filed: 05/24/25 00:03> Const: Vital Signs, click to edit/add: Vital Signs - 24 hr 05/20/25 22:18 05/20/25 22:19 05/20/25 22:34 Temperature 98.9 F Pulse Rate 83 Pulse Rate [Pulse Oximeter] 83 Respiratory Rate 20 16 Blood Pressure 95/56 L 114/61 Blood Pressure [Ri ght Upper Arm] 95/56 L Pulse Oximetry 94 92 Oxygen Delivery Me thod Room Air Oxygen Flow Rate 05/20/25 22:42 05/20/25 22:44 05/20/25 22:45 Temperature Pulse Rate 83 Pulse Rate [Pulse Oximeter] 83 Respiratory Rate 16 16 Blood Pressure 115/71 Blood Pressure [Ri ght Upper Arm] Pulse Oximetry 84 L 93 Oxygen Delivery Me thod Room Air Nasal Cannula Oxygen Flow Rate 2 05/20/25 22:49 05/20/25 22:49 05/20/25 23:00 Temperature Pulse Rate Pulse Rate [Pulse Oximeter] Respiratory Rate 19 Blood Pressure Blood Pressure [Ri ght Upper Arm] Pulse Oximetry 84 L 84 L Oxygen Delivery Me thod Room Air Oxygen Flow Rate 05/20/25 23:02 05/20/25 23:41 05/21/25 00:22 Temperature Pulse Rate 83 83 82 Pulse Rate [Pulse Oximeter] Respiratory Rate 16 16 18 Blood Pressure 121/73 118/67 106/64 Blood Pressure [Ri ght Upper Arm] Pulse Oximetry 95 93 95 Oxygen Delivery Me thod Nasal Cannula Nasal Cannula Oxygen Flow Rate 2 2 2 05/21/25 01:01 05/21/25 02:01 05/21/25 03:01 Temperature Pulse Rate 81 79 79 Pulse Rate [Pulse Oximeter] Respiratory Rate 19 18 16 Blood Pressure 103/67 96/65 118/64 Blood Pressure [Ri ght Upper Arm] Pulse Oximetry 95 94 96 Oxygen Delivery Me thod Nasal Cannula Nasal Cannula Nasal Cannula Oxygen Flow Rate 2 2 2 05/21/25 04:05 05/21/25 04:59 05/21/25 05:01 Temperature 98.7 F Pulse Rate 79 78 Pulse Rate [Pulse Oximeter] Respiratory Rate 16 20 20 Blood Pressure 130/43 L 129/67 100/61 Blood Pressure [Ri ght Upper Arm] Pulse Oximetry 94 92 95 Oxygen Delivery Me thod Nasal Cannula Nasal Cannula Nasal Cannula Oxygen Flow Rate 2 2 2 05/21/25 06:06 05/21/25 07:00 05/21/25 07:05 Temperature Pulse Rate 80 86 82 Pulse Rate [Pulse Oximeter] Respiratory Rate Blood Pressure Blood Pressure [Ri ght Upper Arm] Pulse Oximetry 88 93 Oxygen Delivery Me thod Oxygen Flow Rate 05/21/25 07:57 05/21/25 08:10 05/21/25 10:44 Temperature 98.7 F 98.2 F Pulse Rate 84 82 74 Pulse Rate [Pulse Oximeter] Respiratory Rate 20 16 Blood Pressure 97/75 106/64 Blood Pressure [Ri ght Upper Arm] Pulse Oximetry 92 91 95 Oxygen Delivery Me thod Room Air Oxygen Flow Rate 05/21/25 13:58 Temperature 98.0 F Pulse Rate Pulse Rate [Pulse Oximeter] 80 Respiratory Rate 20 Blood Pressure Blood Pressure [Ri ght Upper Arm] 121/69 Pulse Oximetry 94 Oxygen Delivery Me thod Room Air Oxygen Flow Rate <Homar Elias MD - Last Filed: 05/24/25 00:03> Vital Signs, click to edit/add: Vital Signs - 24 hr 05/20/25 22:18 05/20/25 22:19 05/20/25 22:34 Temperature 98.9 F Pulse Rate 83 Pulse Rate [Pulse Oximeter] 83 Respiratory Rate 20 16 Blood Pressure 95/56 L 114/61 Blood Pressure [Ri ght Upper Arm] 95/56 L Pulse Oximetry 94 92 Oxygen Delivery Me thod Room Air Oxygen Flow Rate 05/20/25 22:42 05/20/25 22:44 05/20/25 22:45 Temperature Pulse Rate 83 Pulse Rate [Pulse Oximeter] 83 Respiratory Rate 16 16 Blood Pressure 115/71 Blood Pressure [Ri ght Upper Arm] Pulse Oximetry 84 L 93 Oxygen Delivery Me thod Room Air Nasal Cannula Oxygen Flow Rate 2 05/20/25 22:49 05/20/25 22:49 05/20/25 23:00 Temperature Pulse Rate Pulse Rate [Pulse Oximeter] Respiratory Rate 19 Blood Pressure Blood Pressure [Ri ght Upper Arm] Pulse Oximetry 84 L 84 L Oxygen Delivery Me thod Room Air Oxygen Flow Rate 05/20/25 23:02 05/20/25 23:41 05/21/25 00:22 Temperature Pulse Rate 83 83 82 Pulse Rate [Pulse Oximeter] Respiratory Rate 16 16 18 Blood Pressure 121/73 118/67 106/64 Blood Pressure [Ri ght Upper Arm] Pulse Oximetry 95 93 95 Oxygen Delivery Me thod Nasal Cannula Nasal Cannula Oxygen Flow Rate 2 2 2 05/21/25 01:01 05/21/25 02:01 05/21/25 03:01 Temperature Pulse Rate 81 79 79 Pulse Rate [Pulse Oximeter] Respiratory Rate 19 18 16 Blood Pressure 103/67 96/65 118/64 Blood Pressure [Ri ght Upper Arm] Pulse Oximetry 95 94 96 Oxygen Delivery Me thod Nasal Cannula Nasal Cannula Nasal Cannula Oxygen Flow Rate 2 2 2 05/21/25 04:05 05/21/25 04:59 05/21/25 05:01 Temperature 98.7 F Pulse Rate 79 78 Pulse Rate [Pulse Oximeter] Respiratory Rate 16 20 20 Blood Pressure 130/43 L 129/67 100/61 Blood Pressure [Ri ght Upper Arm] Pulse Oximetry 94 92 95 Oxygen Delivery Me thod Nasal Cannula Nasal Cannula Nasal Cannula Oxygen Flow Rate 2 2 2 05/21/25 06:06 05/21/25 07:00 05/21/25 07:05 Temperature Pulse Rate 80 86 82 Pulse Rate [Pulse Oximeter] Respiratory Rate Blood Pressure Blood Pressure [Ri ght Upper Arm] Pulse Oximetry 88 93 Oxygen Delivery Me thod Oxygen Flow Rate 05/21/25 07:57 05/21/25 08:10 05/21/25 10:44 Temperature 98.7 F 98.2 F Pulse Rate 84 82 74 Pulse Rate [Pulse Oximeter] Respiratory Rate 20 16 Blood Pressure 97/75 106/64 Blood Pressure [Ri ght Upper Arm] Pulse Oximetry 92 91 95 Oxygen Delivery Me thod Room Air Oxygen Flow Rate 05/21/25 13:58 Temperature 98.0 F Pulse Rate Pulse Rate [Pulse Oximeter] 80 Respiratory Rate 20 Blood Pressure Blood Pressure [Ri ght Upper Arm] 121/69 Pulse Oximetry 94 Oxygen Delivery Me thod Room Air Oxygen Flow Rate <Yoko Daly MD - Last Filed: 05/21/25 14:40> Course Course ED Course: Reviewed operative note from April 15 at which time patient underwent right knee replacement, follow-up visit on leg 6 patient was noted to have bilateral pitting edema of the lower extremities, phone visit yesterday patient noted to have a small area of wound breakdown over his patella and also noted that he had a fall, patient is to be seen in orthopedic clinic tomorrow. Patient presents today with a syncopal episode in setting of taking oxycodone having a couple of with skis. On initial arrival here, patient is hypotensive, awake alert, no external signs of trauma. There is swelling and induration of the right anterior knee and lower leg with small area of superficial dehiscence of the the incision from patient's DKA. Concern for cellulitis, syncopal episode is likely multifactorial. EKG is ordered along with labs, CT scan of the head and x-ray of the right knee. IV fluids are ordered. <Homar Elias MD - Last Filed: 05/24/25 00:03> Reevaluation(s) Time of Reevaluation #1: 23:03 <Homar Elias MD - Last Filed: 05/24/25 00:03> Reevaluation #1: Labs ordered and independently interpreted by me with white blood cell count 20.8, hemoglobin 13.8, creatinine 1.3 which is stable for the patient, lactate 2, magnesium 1.4, alcohol level is negative. Given hypotension, right lower extremity cellulitis, and elevated white blood cell count, concern for possible early sepsis. Zosyn and vancomycin are ordered and anticipate admission. Troponin is 0. <Homar Elias MD - Last Filed: 05/24/25 00:03> Time of Reevaluation #2: 23:30 <Hoamr Elias MD - Last Filed: 05/24/25 00:03> Reevaluation #2: X-ray independently interpreted by me with no hardware complications, large joint effusion. Care discussed with [facility] orthopedics who recommends transfer to location patient's surgery especially in light of possible septic joint. Contacted [facility] transfer caliente. EKG independently interpreted by me performed at 10:31 p.m. demonstrates sinus rhythm rate 85, no acute ischemic changes, OK 192, QTC 449, no prior for comparison. <Homar Elias MD - Last Filed: 05/24/25 00:03> Time of Reevaluation #3: 23:54 <Homar Elias MD - Last Filed: 05/24/25 00:03> Reevaluation #3: Reviewed radiology interpretation CT scan of the chest which is negative for acute pulmonary embolism or other intrathoracic pathology. Reviewed CT scan of the head which is negative for acute findings. 00:[address] Curiel, orthopedics at [facility]. There is no orthopedic surgeon available in house tomorrow, recommends transfer to [place] where Dr. Hernandez also operates for further evaluation and treatment. Updated patient with this plan he is agreeable. <Homar Elias MD - Last Filed: 05/24/25 00:03> Additional Reevaluation(s): 2:38 p.m.: Lab is reporting that 1 of patient's blood cultures is positive g positive cocci in clusters. He is on Zosyn and vanco, this corroborates our concern of sepsis for this patient. He is improved. We do have bed placement in he should be transferring shortly to [place] where he can have definitive care for probable septic right knee after knee arthroplasty. <Yoko Daly MD - Last Filed: 05/21/25 14:40> Consultations Consultation #1: Did speak with orthopedist Dr. Hernandez whom called here. Did offer to have Orthopedics here do an aspiration of the knee. He stated patient could wait, he would have liked to have had this done on arrival. Patient has been on Zosyn and vancomycin. There is about an 8-10 our bed delay and he is aware of that. Spoke with the hospitalist from [place] Dr. Sesay at 8:34 am, case was reviewed with her. She is aware that we have been in touch with Orthopedics. She does accept on behalf of the orthopedist. We still have the bed delay. <Yoko Daly MD - Last Filed: 05/21/25 14:40> Time: 08:12 <Yoko Daly MD - Last Filed: 05/21/25 14:40> Vital Signs Vital signs: Initial Vital Signs Temperature 98.9 F 05/20/25 22:18 Temperature Source Temporal Artery Scan 05/20/25 22:18 Pulse Rate 83 05/20/25 22:18 Respiratory Rate 20 05/20/25 22:18 Blood Pressure 95/56 L 05/20/25 22:18 Blood Pressure Mean 69 L 05/20/25 22:18 Blood Pressure Position Sitting 05/20/25 22:18 Pulse Oximetry 94 05/20/25 22:18 Oxygen Delivery Method Room Air 05/20/25 22:18 Vital Signs Temperature 98.9 F 05/20/25 22:18 Pulse Rate 83 05/20/25 22:18 Respiratory Rate 20 05/20/25 22:18 Blood Pressure 95/56 L 05/20/25 22:18 Pulse Oximetry 94 05/20/25 22:18 Oxygen Delivery Method Room Air 05/20/25 22:18 Temperature 98.0 F 05/21/25 13:58 Pulse Rate 80 05/21/25 13:58 Respiratory Rate 20 05/21/25 13:58 Blood Pressure 121/69 05/21/25 13:58 Pulse Oximetry 94 05/21/25 13:58 Oxygen Delivery Method Room Air 05/21/25 13:58 Oxygen Flow Rate 2 05/21/25 05:01 <Homar Elias MD - Last Filed: 05/24/25 00:03> Initial Vital Signs Temperature 98.9 F 05/20/25 22:18 Temperature Source Temporal Artery Scan 05/20/25 22:18 Pulse Rate 83 05/20/25 22:18 Respiratory Rate 20 05/20/25 22:18 Blood Pressure 95/56 L 05/20/25 22:18 Blood Pressure Mean 69 L 05/20/25 22:18 Blood Pressure Position Sitting 05/20/25 22:18 Pulse Oximetry 94 05/20/25 22:18 Oxygen Delivery Method Room Air 05/20/25 22:18 Vital Signs Temperature 98.9 F 05/20/25 22:18 Pulse Rate 83 05/20/25 22:18 Respiratory Rate 20 05/20/25 22:18 Blood Pressure 95/56 L 05/20/25 22:18 Pulse Oximetry 94 05/20/25 22:18 Oxygen Delivery Method Room Air 05/20/25 22:18 Temperature 98.0 F 05/21/25 13:58 Pulse Rate 80 05/21/25 13:58 Respiratory Rate 20 05/21/25 13:58 Blood Pressure 121/69 05/21/25 13:58 Pulse Oximetry 94 05/21/25 13:58 Oxygen Delivery Method Room Air 05/21/25 13:58 Oxygen Flow Rate 2 05/21/25 05:01 <oYko Daly MD - Last Filed: 05/21/25 14:40> Medications Administered Medications: Discontinued Medications Generic Name Dose Route Start Last Admin Trade Name Freq PRN Reason Stop Dose Admin Acetaminophen 1,000 mg 05/21/25 08:43 05/21/25 14:39 Acetaminophen 500 Mg Tablet PO 1,000 mg Q6H PRN Administration Gabapentin 300 mg 05/21/25 09:05 05/21/25 13:46 Gabapentin 300 Mg Capsule PO 300 mg TID ERICK Administration Hydroxyzine Pamoate 25 mg 05/21/25 08:43 05/21/25 14:39 Hydroxyzine Pamoate 25 Mg Capsule PO 25 mg Q4H PRN Administration Pain Sodium Chloride 1,000 mls @ 1,000 mls/hr 05/20/25 22:45 05/21/25 00:06 0.9 % Sodium Chloride 1000 Ml IV 05/20/25 23:44 Infused .Q1H ERICK Infusion Piperacillin Sod/Tazobactam 100 mls @ 100 mls/hr 05/20/25 23:04 05/21/25 00:06 Sod 3.375 gm/ Sodium Chloride IVPB 05/20/25 23:05 Infused ONCE ONE Infusion Vancomycin/PEG/NADA/Lysine/Water 2 gm in 400 mls @ 200 mls/hr 05/20/25 23:04 05/21/25 02:10 Vancomycin 2 Gm/400 Ml IVPB 05/21/25 01:03 Infused ONCE ONE Infusion Protocol Magnesium Sulfate 2 gm in 50 mls @ 25 mls/hr 05/20/25 23:07 05/21/25 01:40 Magnesium Iv IVPB 05/21/25 01:06 Infused ONCE ONE Infusion Piperacillin Sod/Tazobactam 100 mls @ 200 mls/hr 05/21/25 05:00 05/21/25 11:33 Sod 3.375 gm/ Sodium Chloride IVPB Infused Q6H ERICK Infusion Potassium Chloride/Sodium Chloride 1,000 mls @ 125 mls/hr 05/21/25 08:45 05/21/25 14:46 0.9 % Sodium Ch + Kcl 20 Meq/L IV Infused .Q8H ERICK Infusion IV Miscellaneous Supplies 1 each 05/20/25 23:05 05/20/25 23:40 Pharmacist Consult MC 1 each Q24H ERICK Administration Protocol IV Miscellaneous Supplies 1 each 05/21/25 09:00 05/21/25 09:33 Pharmacist Consult MC 1 each DAILY ERICK Administration Protocol Insulin Aspart 0 unit 05/21/25 11:30 05/21/25 11:07 Insulin Aspart 100 Unit/Ml SUBCUT Not Given ACHS [facility] Protocol Oxycodone HCl 5 mg 05/21/25 00:38 05/21/25 13:46 Oxycodone 5 Mg Tablet PO 5 mg Q4H PRN Administration Pain <Homar Elias MD - Last Filed: 05/24/25 00:03> Discontinued Medications Generic Name Dose Route Start Last Admin Trade Name Freq PRN Reason Stop Dose Admin Acetaminophen 1,000 mg 05/21/25 08:43 05/21/25 14:39 Acetaminophen 500 Mg Tablet PO 1,000 mg Q6H PRN Administration Gabapentin 300 mg 05/21/25 09:05 05/21/25 13:46 Gabapentin 300 Mg Capsule PO 300 mg TID ERICK Administration Hydroxyzine Pamoate 25 mg 05/21/25 08:43 05/21/25 14:39 Hydroxyzine Pamoate 25 Mg Capsule PO 25 mg Q4H PRN Administration Pain Sodium Chloride 1,000 mls @ 1,000 mls/hr 05/20/25 22:45 05/21/25 00:06 0.9 % Sodium Chloride 1000 Ml IV 05/20/25 23:44 Infused .Q1H ERICK Infusion Piperacillin Sod/Tazobactam 100 mls @ 100 mls/hr 05/20/25 23:04 05/21/25 00:06 Sod 3.375 gm/ Sodium Chloride IVPB 05/20/25 23:05 Infused ONCE ONE Infusion Vancomycin/PEG/NADA/Lysine/Water 2 gm in 400 mls @ 200 mls/hr 05/20/25 23:04 05/21/25 02:10 Vancomycin 2 Gm/400 Ml IVPB 05/21/25 01:03 Infused ONCE ONE Infusion Protocol Magnesium Sulfate 2 gm in 50 mls @ 25 mls/hr 05/20/25 23:07 05/21/25 01:40 Magnesium Iv IVPB 05/21/25 01:06 Infused ONCE ONE Infusion Piperacillin Sod/Tazobactam 100 mls @ 200 mls/hr 05/21/25 05:00 05/21/25 11:33 Sod 3.375 gm/ Sodium Chloride IVPB Infused Q6H ERICK Infusion Potassium Chloride/Sodium Chloride 1,000 mls @ 125 mls/hr 05/21/25 08:45 05/21/25 14:46 0.9 % Sodium Ch + Kcl 20 Meq/L IV Infused .Q8H ERICK Infusion IV Miscellaneous Supplies 1 each 05/20/25 23:05 05/20/25 23:40 Pharmacist Consult MC 1 each Q24H ERICK Administration Protocol IV Miscellaneous Supplies 1 each 05/21/25 09:00 05/21/25 09:33 Pharmacist Consult MC 1 each DAILY ERICK Administration Protocol Insulin Aspart 0 unit 05/21/25 11:30 05/21/25 11:07 Insulin Aspart 100 Unit/Ml SUBCUT Not Given ACHS ERICK Protocol Oxycodone HCl 5 mg 05/21/25 00:38 05/21/25 13:46 Oxycodone 5 Mg Tablet PO 5 mg Q4H PRN Administration Pain <Yoko Daly MD - Last Filed: 05/21/25 14:40> Medical Decision Making Lab Data Lab results reviewed: Yes I reviewed the patient's lab results <Yoko Daly MD - Last Filed: 05/21/25 14:40> Labs: Lab Results 05/20/25 05/21/25 Range/Units 22:20 07:30 WBC 20.84 H (4.50-11.00) K/uL RBC 4.25 L (4.30-5.90) m/uL Hgb 13.8 (13.5-17.5) gm/dL Hct 41.1 (37.0-53.0) % MCV 97 (80-100) fL MCH 33 (26-34) pg MCHC 34 (32-36) gm/dL RDW Coeff of Jerardo 15.3 (11.5-15.5) % Plt Count 161 (140-440) K/uL Neut % (Auto) 85.8 H (42.0-72.0) % Lymph % (Auto) 4.7 L (20-44) % [place] % (Auto) 8.0 (0.0-11.0) % Eos % (Auto) 0.0 (0.0-7.0) % Baso % (Auto) 0.2 (0.0-3.0) % Neut # (Auto) 17.90 H (1.7-7.0) K/uL Lymph # (Auto) 1.00 (0.90-2.90) K/uL [place] # (Auto) 1.70 H (0.00-0.90) K/UL Eos # (Auto) 0.00 (0.00-0.50) K/uL Baso # (Auto) 0.00 (0.00-0.30) K/uL Abs Immat Gran (auto) 0.30 (0.00-0.30) K/uL Imm/Tot Granulo (auto) 1.3 % D-Dimer Quant (PE/DVT) 8.82 H (0.00-0.50) ug/ml Sodium 132 L (135-149) mmol/L Potassium 4.2 (3.6-5.1) mmol/L Chloride 91 L (96-114) mmol/L Carbon Dioxide 32 (20-32) mmol/L Anion Gap 9 (7-15) mEq/L BUN 28 (7-30) mg/dL Creatinine 1.3 (0.5-1.5) mg/dL Estimated Creat Clear 64.99 Estimated GFR 61 ml/min Glucose 112 (60-115) mg/dL Lactate 2.0 H (0.5-1.9) mmol/L Calcium 9.0 (8.4-10.6) mg/dL Magnesium 1.4 L (1.5-2.6) mg/dL Urine Color Yellow (Yellow) Urine Appearance Clear (Clear) Urine pH 5.5 (5.0-8.5) Ur Specific [place] 1.015 (1.000-1.030) Urine Protein Trace A (Negative) Urine Glucose (UA) 2+ A (Negative) Urine Ketones Negative (Negative) Urine Blood Trace-intact A (Negative) Urine Nitrite Negative (Negative) Urine Bilirubin Negative (Negative) Urine Urobilinogen 1.0 (0.2-1.0) Ur Leukocyte Esterase Negative (Negative) Urine RBC 0-2 (0-2) Urine WBC 2-5 (0-5) Ur Squamous Epith Cells Few (None-Few) Urine Bacteria Few A (None) Ethyl Alcohol < 0.01 (0.01-0.03) % POC Troponin I 0.00 L (0.01-0.04) ng/ml <Homar Elias MD - Last Filed: 05/24/25 00:03> Lab Results 05/20/25 05/21/25 Range/Units 22:20 07:30 WBC 20.84 H (4.50-11.00) K/uL RBC 4.25 L (4.30-5.90) m/uL Hgb 13.8 (13.5-17.5) gm/dL Hct 41.1 (37.0-53.0) % MCV 97 (80-100) fL MCH 33 (26-34) pg MCHC 34 (32-36) gm/dL RDW Coeff of Jerardo 15.3 (11.5-15.5) % Plt Count 161 (140-440) K/uL Neut % (Auto) 85.8 H (42.0-72.0) % Lymph % (Auto) 4.7 L (20-44) % [place] % (Auto) 8.0 (0.0-11.0) % Eos % (Auto) 0.0 (0.0-7.0) % Baso % (Auto) 0.2 (0.0-3.0) % Neut # (Auto) 17.90 H (1.7-7.0) K/uL Lymph # (Auto) 1.00 (0.90-2.90) K/uL Marin # (Auto) 1.70 H (0.00-0.90) K/UL Eos # (Auto) 0.00 (0.00-0.50) K/uL Baso # (Auto) 0.00 (0.00-0.30) K/uL Abs Immat Gran (auto) 0.30 (0.00-0.30) K/uL Imm/Tot Granulo (auto) 1.3 % D-Dimer Quant (PE/DVT) 8.82 H (0.00-0.50) ug/ml Sodium 132 L (135-149) mmol/L Potassium 4.2 (3.6-5.1) mmol/L Chloride 91 L (96-114) mmol/L Carbon Dioxide 32 (20-32) mmol/L Anion Gap 9 (7-15) mEq/L BUN 28 (7-30) mg/dL Creatinine 1.3 (0.5-1.5) mg/dL Estimated Creat Clear 64.99 Estimated GFR 61 ml/min Glucose 112 (60-115) mg/dL Lactate 2.0 H (0.5-1.9) mmol/L Calcium 9.0 (8.4-10.6) mg/dL Magnesium 1.4 L (1.5-2.6) mg/dL Urine Color Yellow (Yellow) Urine Appearance Clear (Clear) Urine pH 5.5 (5.0-8.5) Ur Specific [place] 1.015 (1.000-1.030) Urine Protein Trace A (Negative) Urine Glucose (UA) 2+ A (Negative) Urine Ketones Negative (Negative) Urine Blood Trace-intact A (Negative) Urine Nitrite Negative (Negative) Urine Bilirubin Negative (Negative) Urine Urobilinogen 1.0 (0.2-1.0) Ur Leukocyte Esterase Negative (Negative) Urine RBC 0-2 (0-2) Urine WBC 2-5 (0-5) Ur Squamous Epith Cells Few (None-Few) Urine Bacteria Few A (None) Ethyl Alcohol < 0.01 (0.01-0.03) % POC Troponin I 0.00 L (0.01-0.04) ng/ml <Yoko Daly MD - Last Filed: 05/21/25 14:40> Discharge Plan Discharge Clinical Impression: Postoperative wound infection, Cellulitis of leg, right Type 2 diabetes mellitus Qualifiers: Diabetes mellitus ocean transportation intermediary insulin use: with ocean transportation intermediary use Sepsis Qualifiers: Sepsis type: sepsis due to unspecified organism Sepsis acute organ dysfunction status: without acute organ dysfunction Qualified Code(s): A41.9 - Sepsis, unspecified organism Syncope Qualifiers: Syncope type: unspecified Qualified Code(s): R55 - Syncope and collapse S/P total knee arthroplasty Qualifiers: Laterality: right Qualified Code(s): Z96.651 - Presence of right artificial knee joint <Homar Elias MD - Last Filed: 05/24/25 00:03> Prescriptions: No Action metformin 500 mg tablet 1,000 mg PO BID (DME) pen needle, diabetic [UltiCare Pen Needle] 31 gauge x 5/16 needle See Rx Instructions .ROUTE DIRECTED Qty: 1200 Rx Instructions: As directed Jardiance 25 mg tablet 25 mg PO DAILY carvedilol 25 mg tablet 50 mg PO BID furosemide 20 mg tablet 20 mg PO QAM pantoprazole 40 mg tablet,delayed release (DR/EC) 40 mg PO DAILY oxycodone 5 mg tablet 5 mg PO Q12H aspirin 81 mg tablet,delayed release (DR/EC) 81 mg PO BID acetaminophen 500 mg tablet 1,000 mg PO Q6H gabapentin 300 mg capsule 300 mg PO 3XD lisinopril-hydrochlorothiazide 20-25 mg tablet 1 tab PO DAILY insulin aspart U-100 100 unit/mL (3 mL) insulin pen 10 unit subcut BID duloxetine 30 mg capsule,delayed release(DR/EC) 30 mg PO DAILY (DME) Lover.ly G7 Sensor Device MISCELLANEOUS Q10D insulin degludec [Tresiba FlexTouch U-200] 200 unit/mL (3 mL) insulin pen 77 unit subcut QPM trazodone 100 mg tablet 100 mg PO HS Rx Instructions: take 1-1.5 tablets at bedtime rosuvastatin 10 mg tablet 10 mg PO QPM duloxetine 60 mg capsule,delayed release(DR/EC) 60 mg PO DAILY Rx Instructions: IN ADDITION TO 30 MG DOSE. <Homar Elias MD - Last Filed: 05/24/25 00:03> Follow Up/Referrals: Caryl Shi DO [Primary Care Provider, Family Practice] <Homar Elias MD - Last Filed: 05/24/25 00:03>
--- OUTSIDE RECORDS SUMMARY | 2025-05-20 22:17 | XMS_ITS | Encounter Summary ---
Author Organization [facility] Address [address] [place] [address]. [place] [address] Care Team Providers Care Engineer Specialist Name Role Phone Maya Goyal MD Unavailable Unavailable No Ref-Primary, Physician Primary Care Provider [facility] Unavailable Reason for Visit * Reason Comments Medication Refill Encounter Details Date Type Department Care Team (Late st Contact Info) Description 10/03/[address] [place] [address] Maya Goyal MD INACTIVE IN [place] 08/23/2024 Medication Refill Social History Tobacco Use [...] Sex Assigned at Male 09/17/2018 5:00 PM ANALYTICAL CHEMIST Legal Sex Male 3:11 AM ANALYTICAL CHEMIST Gender Identity Male 09/17/2018 5:00 PM ANALYTICAL CHEMIST Sexual Orientation Straight 09/17/2018 5: 00 PM ANALYTICAL CHEMIST documented as of this encounter Miscellaneous Notes * Telephone Encounter - Rukhsana Bowden RN - 10/03/2023 1:53 PM ANALYTICAL CHEMIST Pt going to [facility] now. Please deny med, will put notes in Rx. Catia Swift MD [address] [place] [id number] YTICAL CHEMIST documented in this encounter Plan of Treatment Not on file documented as of this encounter Visit Diagnoses Diagnosis Type 2 diabetes mellitus with stage 1 chronic kidney disease, without long-term current use of insulin (H) documented in this encounter Additional Health Concerns Assessment Noted Time PHQ-9 Depression Total Score: 10 05/16/ 021 2:58 PM CDT documented as of this encounter Care Teams Engineer Specialist Relationship Specialty Start Date End Date No Ref-Primary, Physician PCP - General 11/15/22 Maya Goyal MD Assigned PCP 06/27/12 10/17/23 [facility] - [address] [address] Assigned PCP 10/18/23 12/13/24 documented as of this encounter
--- OUTSIDE RECORDS SUMMARY | 2025-05-20 22:17 | XMS_ITS | Patient Health Record ---
Author Organization [facility] Address [address] [place] [address] [address] [place] [address] Care Team Providers Care Exterior Door Installer Name Role Phone Caryl Shi Primary Care Provider Karlo Hewitt Unavailable [phone] Catia Swift MD Unavailable Unavailable Michael Suárez Unavailable [phone] Allergies No Known Allergies Results Component Value Reference Range Notes Oral Toxicology Screen Reviewed date:01/19/2025 04:10:13 PM Interpretation:see results Performing Lab: Notes/Report: see results Oral Toxicology Screen Reviewed date:07/14/2024 01:11:06 PM Interpretation:see results Performing Lab: Notes/Report: see results Reason For Referral No Information Medications Medication SIG (Take, Route, Frequency, Duration) Notes Start Date End Date Status Tamsulosin HCl 0.4 MG Oral; Duration: 90 Days Active traZODone HCl 100 MG Oral; Duration: 90 Days Active Finasteride 5 MG TAKE ONE TABLET BY MOUTH ONCE DAILY Oral; Duration: 30 Days Active DULoxetine HCl 60 MG Oral; Duration: 30 Days Active tiZANidine HCl 4 MG 1 tablet as needed Orally once a day at bedtime; Duration: 30 days Active Spironolactone 50 MG Oral; Duration: 30 Days Active Meloxicam 7.5 MG 1 tablet Orally Once a day; Duration: 30 days Active Furosemide 20 MG Oral; Duration: 90 Days Active Methocarbamol 750 MG 1 tablet Orally(muscle relaxant for daytime use, Do not take with Tizanidine- only take 1 tablet at a time) Twice a day; Duration: 30 days Active oxyCODONE HCl 5 MG 1 tablet as needed Orally (ok to fill 05/18/2025) every 8-12 hours; Duration: 30 days Low back pain, unspecified M54.50, G89.29 PRINTED 05/18/2025 Active UltiCare Short Pen [place] 31G X 8 MM DIRECTED; Duration: 30 Days Active Lantus SoloStar 100 UNIT/ML Subcutaneous; Duration: 17 Days Active Carvedilol 25 MG Oral; Duration: 90 Days Active amLODIPine Besylate 5 MG Oral; Duration: 90 Days Active Social [...] W/U Status Risk Notes Problem Opioid dependence (88252703) Opioid dependence, uncomplicated (F11.20) Active confirmed Problem Chronic pain (99088401) Other chronic pain (G89.29) Active confirmed Problem Primary osteoarthritis (790198369) Unilateral primary osteoarthritis, right knee (M17.11) Active confirmed Problem Osteoarthritis of knee (869533569) Unilateral primary osteoarthritis, left knee (M17.12) Active confirmed Problem Arthralgia of the pelvic region and thigh (919845367) Pain in right hip (M25.551) Active confirmed Problem Pain of left hip joint (finding) (121943548383063) Pain in left hip (M25.552) Active confirmed Problem Acquired spondylolisthesis (769711460) Spondylolysis, lumbosacral region (M43.07) Active confirmed Problem Lumbosacral radiculopathy (2925646) Radiculopathy, lumbosacral region (M54.17) Active confirmed Problem Cervicalgia (55368679) Cervicalgia (M54.2) Active confirmed Problem High risk drug monitoring status (522089216) group home (current) use of opiate analgesic (Z79.891) Active confirmed Problem Low back pain (600117041) Low back pain, unspecified (M54.50) Active confirmed Vital Signs Blood pressure diastolic 82 mm Hg 05/18/2025 Height 74 in 05/18/2025 Blood pressure systolic 132 mm Hg 05/18/2025 Weight 315 lbs 05/18/2025 BMI 40.44 kg/m2 05/18/2025 Encounters Encounter Location Date Provider Diagnosis [facility] [address] [place] [address] [address] [place] [address] 05/18/2025 Michael Suárez [facility] [address] [place] [address] [address] [id number] 06/17/2024 Michael Suárez Other chronic pain G89.29 [facility] [address] [place] [address] [address] [place] [id number] 07/07/2024 Michael Suárez [facility] [address] [place] [address] [address] [address] 08/07/2024 Michael Suárez Other chronic pain G89.29 [facility] [address] [place] [address] [address] [id number] 10/09/2024 Michael Suárez Other chronic pain G89.29 [facility] [address] [place] [address] [address] [place] [id number] 11/06/2024 Karlo Ortiz [facility] [address] [place] [address] [address] [address] 11/14/2024 Michael Suárez [facility] [address] [place] [address] [address] [address] 12/08/2024 Michael Suárez Other chronic pain G89.29 [facility] [address] [place] [address] [address] [place] [id number] 01/17/2025 Karlo Ortiz [facility] [address] [place] [address] [address] [place] [id number] 03/13/2025 Michael Suárez Other chronic pain G89.29 [facility] [address] [place] [address] [address] [place] [id number] 03/19/2025 Karlo Ortiz [facility] [address] [place] [address] [address] [place] [id number] 04/16/2025 Michael Suárez Other chronic pain G89.29 [address] [facility] [address] [place] [address] 07/07/2024 Michael Suárez 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 Z79.891 ; Spondylolysis, lumbosacral region M43.07 ; Opioid dependence, uncomplicated F11.20 and Other chronic pain G89.29 [address] [facility] [address] [place], [place] [address] [address] 09/03/2024 Michael Suárez Unilateral primary osteoarthritis, right knee M17.11 ; Low back pain, unspecified M54.50 ; Unilateral primary osteoarthritis, left knee M17.12 ; Pain in left hip M25.552 ; Pain in right hip M25.551 and Other chronic pain G89.29 [address] [facility] [address] [place], [place] [address] [address] 11/06/2024 Michael Suárez Unilateral primary osteoarthritis, right knee M17.11 ; Unilateral primary osteoarthritis, left knee M17.12 ; Low back pain, unspecified M54.50 ; Pain in left hip M25.552 ; Pain in right hip M25.551 and Other chronic pain G89.29 [address] [facility] [address] [place], [place] [address] [address] 01/05/2025 Michael Suárez Low back pain, unspecified M54.50 ; Cervicalgia M54.2 ; Unilateral primary osteoarthritis, left knee M17.12 ; Unilateral primary osteoarthritis, right knee M17.11 ; Other chronic pain G89.29 ; group home (current) use of opiate analgesic Z79.891 and Opioid dependence, uncomplicated F11.20 [address] [facility] [address] [place], [place] [address] [address] 03/19/2025 Michael Suárez Unilateral primary osteoarthritis, right knee M17.11 ; Unilateral primary osteoarthritis, left knee M17.12 ; Spondylolysis, lumbosacral region M43.07 and Other chronic pain G89.29 [address] [facility] [address] [place] [address] 05/18/2025 Michael Suárez Unilateral primary osteoarthritis, right knee M17.11 ; Unilateral primary osteoarthritis, left knee M17.12 ; Spondylolysis, lumbosacral region M43.07 and Other chronic pain G89.29 Assessments Encounter Date Diagnosis (ICD Code) Assessment Notes Treatment Notes Treatment Clinical Notes Section Notes 06/17/2024 Other chronic pain (ICD-10 - G89.29) 07/07/2024 Spondylolysis, lumbosacral region (ICD-10 - M43.07) 07/07/2024 group home (current) use of opiate analgesic (ICD-10 - Z79.891) 08/07/2024 Other chronic pain (ICD-10 - G89.29) 09/03/2024 Unilateral primary osteoarthritis, right knee (ICD-10 - M17.11) 09/03/2024 Low back pain, unspecified (ICD-10 - M54.50) 10/09/2024 Other chronic pain (ICD-10 - G89.29) 11/06/2024 Unilateral primary osteoarthritis, right knee (ICD-10 - M17.11) 12/08/2024 Other chronic pain (ICD-10 - G89.29) 01/05/2025 Cervicalgia (ICD-10 - M54.2) 01/05/2025 Low back pain, unspecified (ICD-10 - M54.50) 03/13/2025 Other chronic pain (ICD-10 - G89.29) 03/19/2025 Unilateral primary osteoarthritis, right knee (ICD-10 - M17.11) 03/19/2025 Unilateral primary osteoarthritis, left knee (ICD-10 - M17.12) 04/16/2025 Other chronic pain (ICD-10 - G89.29) 05/18/2025 Unilateral primary osteoarthritis, right knee (ICD-10 - M17.11) 05/18/2025 Unilateral primary osteoarthritis, left knee (ICD-10 - M17.12) 03/19/2025 Spondylolysis, lumbosacral region (ICD-10 - M43.07) 01/05/2025 Unilateral primary osteoarthritis, left knee (ICD-10 - M17.12) 11/06/2024 Unilateral primary osteoarthritis, left knee (ICD-10 - M17.12) 09/03/2024 Unilateral primary osteoarthritis, left knee (ICD-10 - M17.12) 07/07/2024 Opioid dependence, uncomplicated (ICD-10 - F11.20) 07/07/2024 Other chronic pain (ICD-10 - G89.29) Bill returns to clinic today for a follow-up evaluation regarding his chronic low back, neck, and bilateral knee pain. We discussed his current symptoms and medications. Regarding medications, I have reviewed the [place] [employer] [employer] database and his most recent UDS, finding [...] questions, problems or concerns. 11/06/2024 Pain in left hip (ICD-10 - M25.552) 11/06/2024 Low back pain, unspecified (ICD-10 - M54.50) 01/05/2025 Unilateral primary osteoarthritis, right knee (ICD-10 - M17.11) 09/03/2024 Pain in left hip (ICD-10 - M25.552) 03/19/2025 Other chronic pain (ICD-10 - G89.29) Rafa Calabrese) returns to clinic today for a follow-up evaluation regarding his chronic neck, low back, and bilateral knee pain. I have reviewed the [place] [employer] database and did not find any inconsistencies. [...] with any questions, problems or concerns. 05/18/2025 Spondylolysis, lumbosacral region (ICD-10 - M43.07) 05/18/2025 Other chronic pain (ICD-10 - G89.29) Rafa Calabrese) returns to clinic today for a follow-up evaluation regarding his chronic neck, low back, and bilateral knee pain. I have reviewed the [facility] database and did not find any inconsistencies. [...] bilateral knee pain. I have reviewed the [facility] database and did not find any inconsistencies. [...] medications. Regarding medications, I have reviewed the [place] [employer] [employer] database and his most recent OTS, finding [...] medications. Regarding medications, I have reviewed the [facility] database and did not find any inconsistencies. [...] with any questions, problems or concerns. 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 All documentation has been reviewed by the aforementioned MARKETING RESEARCHER prior to being entered into the official medical record. Michael Hoover NP, attest that the above named individual is acting in scribe capacity, has observed my performance of the services and has documented them in accordance with my direction. The documentation recorded by the scribe accurately reflects the service I personally performed and the decisions made during the clinic visit. 01/05/2025 Other Joselyn Hoover , am serving as a scribe to document services personally performed by Michael Suárez CNP, based upon my observations and the provider's statements to me. All documentation has been reviewed by the aforementioned DEVELOPMENT WRITER. Michael Hoover CNP, attest that the above named individual is acting in scribe capacity, has observed my performance of the services and has documented them in accordance with my direction. The documentation recorded by the scribe accurately reflects the service I personally performed and the decisions made during the clinic visit. 06/17/2024 Other I, Tommy Peewee , am serving as a scribe to document services personally performed by Michael Suárez CNP, based upon my observations and the provider's statements to me. All documentation has been reviewed by the aforementioned DEVELOPMENT WRITER as well as Karlo Ortiz MD, prior [...] documentation has been reviewed by the aforementioned DEVELOPMENT WRITER. I, Michael Suárez CNP, attest that the above named individual is acting in scribe capacity, has observed my performance of the services and has documented them in accordance with my direction. The documentation recorded by the scribe accurately reflects the service I personally performed and the decisions made during the clinic visit. 07/07/2024 Other Sebastian Hoover, am serving as a scribe to document services personally performed by Michael Suárez NP, based upon my observations and the provider's statements to me. All documentation has been reviewed by the aforementioned MARKETING RESEARCHER. I, Michael Suárez NP, attest that the [...] documentation has been reviewed by the aforementioned DEVELOPMENT WRITER as well as Karlo Ortiz MD, prior [...] documentation has been reviewed by the aforementioned DEVELOPMENT WRITER as well as Bakari Stringer MD, prior [...] End Date [employer] [address] [place] [address] [id number] 01 Rafa Hickey Self - patient is the insured 5 Medicare Part B [employer] [address] [place] [address] [phone] [id number] Rafa Hickey Self - patient is the [...]
--- OUTSIDE RECORDS SUMMARY | 2025-05-20 22:17 | XMS_ITS | Encounter Summary ---
Author Organization [facility] Address [address] [place] [address]. [place] [address] Care Team Providers Care Teradata Developer Name Role Phone Maya Goyal MD Primary Care Provider UnavailMaya Vazquez MD Unavailable Unavailable Erlin Delcid MD Unavailable [phone] Mehdi Bass DPM Unavailable [phone] Kae Whipple [facility] Unavailable Maya Goyal MD Unavailable Unavailable No Ref-Primary, Physician Primary Care Provider Mehdi Bass DPM Unavailable [phone] [facility] Unavailable Reason for Visit * Reason Comments Medication Refill Encounter Details Date Type Department Care Team (Late st Contact Info) Description 07/11/2021 [facility] [address] [place] [phone] Maya Goyal MD INACTIVE IN [place] 08/23/2024 [...] Sex Assigned at Male 09/17/2018 5:00 PM DECATOR OPERATOR Legal Sex Male 3:11 AM DECATOR OPERATOR Gender Identity Male 09/17/2018 5:00 PM DECATOR OPERATOR Sexual Orientation Straight 09/17/2018 5: 00 PM DECATOR OPERATOR documented as of this encounter Miscellaneous Notes * Telephone Encounter - Rukhsana Yo RN - 07/13/2021 12:52 PM CDT [facility] [...] documented as of this encounter Care Teams Teradata Developer Relationship Specialty Start Date End Date Maya Goyal MD PCP - General 05/03/04 11/14/22 No Ref-Primary, Physician PCP - General 11/15/22 Maya Goyal MD Assigned PCP 06/27/12 10/17/23 Erlin Delcid MD [address] [address] Assigned Surgical Provider 09/12/20 Mehdi Bass DPM [address] [facility] [address] [place], [place] [address] Assigned Musculoskeletal Provider 08/14/21 10/27/22 Kae Whipple [facility] [address] [place], [place] [address] Assigned MTM Pharmacist 03/18/22 Maya Goyal MD Assigned Pain Medication Provider 10/02/22 03/23/23 Mehdi Bass DPM [address] [facility] [address] [place], [place] [address] Assigned Surgical Provider 10/28/[address] [id number] Assigned PCP 10/18/23 12/13/24 documented as of this encounter
--- OUTSIDE RECORDS SUMMARY | 2025-05-20 22:17 | XMS_ITS | Encounter Summary ---
Author Organization [facility] Address [address] [place] [address]. [place] [address] Care Team Providers Care Tool Carrier Name Role Phone Maya Goyal MD Primary Care Provider UnavailMaya Vazquez MD Unavailable Unavailable Erlin Delcid MD Unavailable Mehdi Bass DPM Unavailable [phone] Kae Whipple [facility] Unavailable Maya Goyal MD Unavailable Unavailable No Ref-Primary, Physician Primary Care Provider Mehdi Bass DPM Unavailable [phone] [facility] Unavailable Reason for Visit * Reason Comments Medication Refill Encounter Details Date Type Department Care Team (Late st Contact Info) Description 06/25/2021 [facility] [address] [place] [phone] Maya Goyal MD INACTIVE IN [place] 08/23/2024 [...] Sex Assigned at Male 09/17/2018 5:00 PM STUDENT DEVELOPMENT DEAN Legal Sex Male 3:11 AM STUDENT DEVELOPMENT DEAN Gender Identity Male 09/17/2018 5:00 PM STUDENT DEVELOPMENT DEAN Sexual Orientation Straight 09/17/2018 5: 00 PM STUDENT DEVELOPMENT DEAN documented as of this encounter Miscellaneous Notes * Telephone Encounter - Celestino Latham RN - 06/27/2021 2:46 PM CDT Prescription approved per [facility] Refill Protocol. documented in this encounter Plan of Treatment Not on file documented as of this encounter Visit Diagnoses Diagnosis Moderate episode of recurrent major depressive disorder (H)- Primary documented in this encounter Additional Health Concerns Assessment Noted Time PHQ-9 Depression Total Score: 10 021 2:58 PM CDT documented as of this encounter Care Teams Tool Carrier Relationship Specialty Start Date End Date Maya Goyal MD PCP - General 05/03/04 11/14/22 No Ref-Primary, Physician PCP - General 11/15/22 Maya Goyal MD Assigned PCP 06/27/12 10/17/23 Erlin Delcid MD [address] [address] Assigned Surgical Provider 09/12/20 Mehdi Bass DPM [address] [facility] [address] [place] [address] Assigned Musculoskeletal Provider 08/14/21 10/27/22 Kae Whipple [facility] [address] [place] [address] Assigned MTM Pharmacist 03/18/22 Maya Goyal MD Assigned Pain Medication Provider 10/02/22 03/23/23 Mehdi Bass DPM [address] [facility] [address] [place], [place] [address] Assigned Surgical Provider 10/28/[address] [id number] Assigned PCP 10/18/23 12/13/24 documented as of this encounter
--- OUTSIDE RECORDS SUMMARY | 2025-05-20 22:17 | XMS_ITS | Clinical Summary ---
Author Organization [facility] Address [address] [place] [address] Care Team Providers Care Shift Production Supervisor Name Role Phone Sarahi Roche RN Unavailable [phone] Caryl Shi DO Primary Care Provider [phone] Allergies No known active allergies Medications Multivitamin Cmb No.21-Iron-FA 18-400 mg-mcg tab Take 1 Tablet by mouth once daily. Active oxyCODONE (ROXICODONE) 5 mg immediate release tablet TAKE ONE TABLET BY MOUTH EVERY 12 HOURS NEEDED - *CAUTION: OPIOID. RISK OF OVERDOSE AND ADDICTION. 023 Active insulin aspart, U-100, (NOVOLOG FLEXPEN) 100 unit/mL (3 mL) penIndications:Ty pe 2 diabetes mellitus with complication, with long-term current use of insulin (HC) Inject 10 units subcutaneous two times daily before meals. 15 mL 3 025 Active DULoxetine (CYMBALTA) 60 mg Delayed-release capsuleIndication s:Mild episode of recurrent major depressive disorder Take 1 Capsule (60 mg) by mouth once daily. Take with 30 mg capsule for total of 90 mg TDD. 90 Capsule 1 025 Active DULoxetine (CYMBALTA) 30 mg Delayed-release capsuleIndication s:Mild episode of recurrent major depressive disorder Take 1 Capsule (30 mg) by mouth once daily. Take with 60 mg capsule for 90 mg total per day. 90 Capsule 1 025 Active metFORMIN (GLUCOPHAGE) 500 mg tabletIndications :Type 2 diabetes mellitus with stage 3b chronic kidney disease, with long-term current use of insulin (HC) TAKE 2 TABLETS BY MOUTH EVERY MORNING AND 2 TABLETS IN THE EVENING WITH MEALS 360 Tablet 025 Active Tresiba FlexTouch U-200 200 unit/mL (3 mL) penIndications:Ty pe 2 diabetes mellitus with complication, with long-term current use of insulin (HC) Inject 77 units subcutaneous at bedtime. 15 mL 5 025 Active Additional Information Patient taking differently: 85 unitSubcutaneous BEDTIME, Reported on 04/15/2025 rosuvastatin 10 mg tabletIndications :Hyperlipidemia LDL goal <100 Take 1 Tablet (10 mg) by mouth at bedtime. 90 Tablet 3 025 Active furosemide 20 mg tabletIndications :HTN (hypertension),Bi lateral lower extremity edema Take 1 Tablet (20 mg) by mouth once daily in the morning. 90 Tablet 025 Active magnesium oxide 400 mg tabletIndications :Hypomagnesemia Take 1 Tablet (400 mg) by mouth once daily. 90 Tablet 3 025 Active lisinopril-hydroc hlorothiazide (20-25 mg) 20-25 mg per tabletIndications :HTN (hypertension) Take 1 Tablet by mouth once daily. 90 Tablet 2 025 Active empagliflozin (JARDIANCE) 25 mg tabletIndications :Type 2 diabetes mellitus with complication, with long-term current use of insulin (HC) Take 1 Tablet (25 mg) by mouth once daily. 90 Tablet 025 Active gabapentin (NEURONTIN) 300 mg capsuleIndication s:Diabetic peripheral neuropathy associated with type 2 diabetes mellitus (HC) Take 1 Capsule (300 mg) by mouth three times daily. 270 Capsule 3 025 Active acetaminophen (TYLENOL EXTRA STRGTH) 500 mg tabletIndications :S/P total knee arthroplasty, right Take 2 Tablets (1,000 mg) by mouth every 6 hours. Max acetaminophen dose: 4000mg in 24 hrs. 200 Tablet 025 Active aspirin enteric coated 81 mg tabletIndications :S/P total knee arthroplasty, right Take 1 Tablet (81 mg) by mouth two times daily with meals. Begin morning after surgery. Take for 6 weeks following surgery, do not stop taking this medication until 6 weeks after surgery for DVT/ blood clot prevention. 84 Tablet 025 2024 Active sennosides-docusa te (Senokot-S) (8.6-50 mg) tabletIndications :S/P total knee arthroplasty, right Take 1-3 Tablets [...] Active ondansetron (ZOFRAN ODT) 4 mg disintegrating tabletIndications :S/P total knee arthroplasty, right Place 1 Tablet (4 mg) on the tongue every 8 hours if needed for Nausea/Vomiting. 20 Tablet Active naloxone (NARCAN) 4 mg/actuation nasal sprayIndications: S/P total knee arthroplasty, right Inhale 1 [place] into affected nostril(s) each time if needed for Patient Diff To Arouse or Resp Rate < 8 / min. Additional doses may be given every 2 to 3 minutes until emergency medical assistance arrives. 2 Each Active HYDROmorphone 2 mg tabletIndications :S/P total knee arthroplasty, right Take 1-2 Tablets (2-4 mg) by mouth every 4 hours if needed for Pain (take 1 tablet for moderate pain 3-6/10 and 2 tablets for severe pain 7-10/10.). 30 Tablet Active Dexcom G7 Sensor for continuous blood glucose monitor (CGM)Indications: Type 2 diabetes mellitus with stage 1 chronic kidney disease, with long-term current use of insulin (HC) To be used to read blood sugars, follow dry kiln loader directions. 9 Each 3 025 Active carvediloL (COREG) 25 mg tabletIndications :Benign essential hypertension Take 2 Tablets (50 mg) by mouth two times daily with meals. 360 Tablet 2 Active pantoprazole (PROTONIX) 40 mg delayed-release tabletIndications :S/P total knee arthroplasty, right Take 1 Tablet (40 mg) by mouth before breakfast. Take Protonix while taking Celebrex. May discontinue Protonix use once you stop taking Celebrex. 30 Tablet 025 Active traZODone (DESYREL) 100 mg tabletIndications :Insomnia, unspecified type Take 1-1.5 Tablets (100-150 mg) by mouth at bedtime. 90 Tablet 1 025 Active carvediloL (COREG) 25 mg tabletIndications :Benign essential hypertension Take 2 Tablets (50 mg) by mouth two times daily with meals. 360 Tablet 3 024 2024 Discontin ued(Reord er (E-cancel not sent)) traZODone 100 mg tabletIndications :Insomnia, unspecified type Take 1-1.5 Tablets (100-150 mg) by mouth at bedtime. 90 Tablet 1 025 2024 Discontin ued(Reord er (E-cancel not sent)) cefadroxil (DURICEF) 500 mg capsuleIndication s:S/P total knee arthroplasty, right Take 1 Capsule (500 mg) by mouth two times daily for 7 days. For infection prevention. 14 Capsule 025 2024 pantoprazole (PROTONIX) 40 mg delayed-release tabletIndications :S/P total knee arthroplasty, right Take 1 Tablet (40 mg) by mouth before breakfast. Take Protonix while taking Celebrex. May discontinue Protonix use once you stop taking Celebrex. 30 Tablet 025 2024 Discontin ued(Reord er (E-cancel not sent)) Active [...] Controlled substance agreement signed 05/02/2022 Overview (05/02/2022): [facility]. Symone Flores CMA 10:37 AM [...] Encounters Date Type Department Care Team Description 05/20/2025 Refill [facility] [address] [place] [address] Caryl Shi, Error-please disregard 05/19/2025 Telephone [facility] [address] [facility] [address] [place] [address] Rishabh Hernandez, 05/18/2025 Refill [facility] [address] [facility] [address] [place] [address] Priscila Tolliver PA Refill Request 05/13/2025 Telephone [facility] [address] [place] [address] Sebastian Louis PsyD, LP Late Cancel Appointment 04/29/2025 11:00 AM CDT Office Visit [facility] [address] [address] Priscila Tolliver PA Surgical Followup (2 week s/p RTKA) 04/29/2025 Travel 04/24/2025 Travel 04/24/2025 Refill [facility] [address] [place] [address] Caryl Shi DO Refill Request (Carvedilol 25mg tabs) 04/16/2025 Telephone [facility] [address] [facility] [address] [place] [address] Priscila Tolliver PA Questions (post op surgery questions ) 04/16/2025 Telephone [facility] [address] [place] [address] Sarahi Roche, pcb designer Management (FreeStyle Susanna 3 Plus Sensor for continuous blood glucose monitor (CGM) 04/15/2025 3:30 PM CDT - 04/15/2025 6:05 PM CDT Surgery [facility] [address] [place] [address] Rishabh Hernandez, ARTHROPLASTY KNEE 04/15/2025 2:39 PM CDT Anesthesia Event [facility] [address] [place] [address] Susan Carvalho CRNA Allen, Carissa Lynn, PLASTIC SHAPER 04/15/2025 11:25 AM CDT - 04/15/2025 7:40 PM CDT Hospital Encounter [facility] [address] [place] [address] Rishabh Hernandez DO Gorden Klukas, Brandi Hope, MD Jyrkas, Dorothy S, RN Primary osteoarthritis of right knee (Primary Dx); S/P total knee arthroplasty, right Discharge Disposition: Home Self Care 04/15/2025 Refill [facility] [address] [place] [address] Caryl Shi, Refill Request (GABAPENTIN 300MG CAPS) 04/15/2025 Travel 04/14/2025 Telephone [facility] [address] [facility] [address] [place] [address] Priscila Tolliver PA OTHER (PT) 04/09/2025 10:30 AM CDT Office Visit [facility] [address] [place] [address] Tristan Castillo MD Consult (insomnia) 04/08/2025 10:30 AM CDT Office Visit [facility] [address] [facility] [address] [place] [address] Rishabh Hernandez, Follow Up (Wound Check for Right TKA) 04/08/2025 Travel 04/06/2025 10:25 AM CDT Office Visit [facility] [address] [place] [address] Caryl Shi, Medicare ANNUAL (subsequent) Visit (64 year old) 04/06/2025 Refill [facility] [address] [place] [address] Caryl Shi, Refill Request (Jardiance 25mg tabs) 04/06/2025 Travel 04/05/2025 Travel 04/01/2025 12:30 PM CDT Office Visit [facility] [address] [place] [address] Sebastian Louis PsyD, Mental Health Intake 04/01/2025 Travel 03/31/2025 11:20 AM CDT Office Visit [facility] [address] [facility] [place] [address] Luis Eduardo Watts MD Procedure (Right L4-5 TFESI) 03/30/2025 Refill [facility] [address] [place] [address] Caryl Shi, DO Refill Request (Lisinopril-Hydrochlor oth 20-25 tabs) 03/25/2025 11:55 AM CDT - 03/25/2025 11:59 PM CDT Hospital Encounter [facility] [address] [place] [address] Caryl Shi, Atypical chest pain 03/24/2025 11:52 AM CDT - 03/24/2025 11:59 PM CDT Hospital Encounter [facility] [address] [place] [address] Caryl Shi, Atypical chest pain 03/24/2025 Travel 03/17/2025 3:15 PM CDT Office Visit [facility] [address] [place] [address] Caryl Shi, Pre-Op Exam (// Date of Surgical Procedure 04/15/25 Name of Procedure to be performed - Knee replacement Facility where Procedure will be performed, including: [facility] Performing Provider's Full name - Dr Hernandez //) 03/17/2025 Travel 03/09/2025 Refill [facility] [address] [place] [address] Caryl Shi, Refill Request (Jardiance) 03/04/2025 1:00 PM CDT Office Visit [facility] [address] [place] [address] Luis Eduardo Watts MD Musculoskeletal Problem (Follow up back pain had an epidural steroid injection last on 12/16/24) 03/04/2025 Travel 03/03/2025 Refill [facility] [address] [place] [address] Caryl Shi, Refill Request (Jardiance 25mg) 02/25/2025 Telephone [facility] [address] [facility] [place] [address] aCryl Shi, DO Follow Up 02/24/2025 11:15 AM CDT Office Visit [facility] [address] [facility] [address] [place] [address] Rishabh Hernandez, DO Follow Up (F/U right knee wound check) 02/24/2025 Travel 02/19/2025 Travel 02/19/2025 Orders Only [facility] [address] [facility] [place] [address] Caryl Shi, DO 1 scan: (1-Ord) NFLD-EKG-02/11/25 02/17/2025 Refill [facility] [address] [place] [address] Caryl Shi, Refill Request (MAGNESIUM OXIDE 400MG TABS) 02/17/2025 Refill [facility] [address] [place] [address] Caryl Shi, Refill Request (Furosemide) from Last 3 Months Immunizations Immunization Administration [...] Care Team (Late st Contact Info) Description 05/21/2025 10:15 AM CDT Office Visit [facility] [address] [facility] [address] [place], [place] [phone] [place] [address] [place], [place] [id number] 05/21/2025 3:15 PM CDT Office Visit [facility] [address] [place] [address] Caryl Shi, DO [address] [place] [address] 06/04/2025 11:00 AM CDT Office Visit [facility] [address] [place] [address] Luis Eduardo Watts MD [address] [place] [address] 06/10/2025 11:00 AM CDT Office Visit [facility] [address] [place] [address] [place] [address] [place] [address] Health Maintenance Due Date Last Done Comments [...] Completed 08/27/2023 Medical Devices Implanted Type Area Drilling Fluids Specialist Device Identifier Shelf Expiration Date Model / Serial / Lot Triathlon Cruciate Retaining Femoral Implanted:Qty: 1 on 04/15/2025 by Rishabh Hernandez DO at [facility] Right: Knee [employer] 11/03/2028 5517-F-702 / / [id number] Triathlon X3 Tibial Bearing Insert Cs Implanted:Qty: 1 on 04/15/2025 by Rishabh Hernandez DO at [facility] Right: Knee [employer] 07/29/2029 [id number]-G-[id number] -[id number] / / [id number] Triathlon Tritanium Tibial Component Implanted:Qty: 1 on 04/15/2025 by Rishabh Hernandez DO at [facility] Right: Knee [employer] 01/28/2030 [id number] / / [id number] Procedures Procedure Name Priority Date/Time Associated Diagnosis Comments PERIPHERAL BLOCK Routine 04/15/2025 5:52 PM CDT XR KNEE 2 VIEWS RIGHT PORTABLE SAMM 04/15/2025 5:32 PM CDT SPINAL BLOCK Routine 04/15/2025 3:15 PM CDT SPINAL BLOCK Routine 04/15/2025 3:15 PM CDT PERIPHERAL BLOCK Routine 04/15/2025 3:10 PM CDT PERIPHERAL BLOCK Routine 04/15/2025 3:09 PM CDT [place] ARTHRP KNE CONDYLE&PLATU MEDIAL&LAT COMPARTMENTS Tier 4: [...] 10:11 AM CDT Pre-op exam Chest discomfort [place] READING EKG - NO CHARGE, COMP ONLY Routine 02/19/2025 10:10 AM CDT Pre-op exam Chest discomfort US ABD AORTA SCREENING Routine 08/27/2023 2:10 PM [employer] C[employer]TER Screening for AAA (aortic abdominal aneurysm) LIPID PANEL W REFLEX MEASURED LDL Routine 07/26/2023 2:25 PM CDT Hyperlipidemia LDL goal <100 from Last 3 Months or Most Recently Relevant to Health Maintenance Results * [facility]G ANES BLOCK INJ PERIPH (04/15/2025 5:52 PM CDT) Narrative Susan Carvalho CRNA - 04/15/2025 5:52 PM CDT Susan Carvalho [...] obtained. Catheter Catheter used:no Events: no complications. us Susan Quintero Deven DAMON ANESTHESIA PX NOTE ORDERABL ES [...] MD @ 04/16/2025 5:42:23 AM (Electronically Signed) us Pr[facility] Final R esult * HC NDL PR1, [facility] TRAY PR10 (04/15/2025 3:15 PM CDT) Narrative Susan Carvalho CRNA - 04/15/2025 3:15 PM CDT Susan Carvalho CRNA 04/15/2025 3:18 PM Spinal Block Patient location during procedure: OR Start time: 04/15/2025 2:48 PM End time: 04/15/2025 2:39 PM Reason for block: at surgeon's request, procedure for pain and primary anesthetic Requesting provider: Rishabh Hernandez DO PreProcedure Checklist Completed: patient identified, risks [...] Assessment Sensory level: T6 Events: no complications. us Susan Carvalho CRNA ANESTHESIA PX NOTE ORDERABL [...] Catheter used:no Events: no complications. Susan Carvalho PLASTIC SHAPER ANESTHESIA PX NOTE ORDERABL ES Final Result [...] Catheter used:no Events: no complications. Susan Carvalho PLASTIC SHAPER ANESTHESIA PX NOTE ORDERABL ES Final Result * (ABNORMAL) GLUCOSE METER (04/15/2025 12:36 PM CDT) GLUCOSE METER 170(H) 65 - 100 mg/dL 04/15/2025 12:40 PM CDT [facility] Blood BLOOD SPECIMEN / Unknown 04/15/2025 12:36 PM CDT 04/15/2025 12:40 PM CDT Rishabh John Hernandez DO CHEMISTRY Final Resu lt Performing Organization Address [facility] Co de Phone Number [facility] [address] [place] [address] * PSA TOTAL (DIAG OR SCREEN) (04/06/2025 11:51 AM CDT) Pathologist [facility] PSA, TOTAL 0.26 < OR = 4.00 ng/mL [facility] Comment: The total PSA value from this assay system is standardized against the WHO standard. The test result will be approximately 20% lower when compared to the equimolar-standardized total PSA ([place]). Comparison of serial PSA results should be [...] CHEMISTRY Final Resu lt Performing Organization Address City/[facility]/ZIP Co de Phone Number [facility] [employer] [facility] [address] [place] [address], [facility] [address] [place] [address] * MAGNESIUM (04/06/2025 11:51 AM CDT) Pathologist [facility] MAGNESIUM 2.2 1.5 - 2.5 mg/dL [facility] Blood BLOOD SPECIMEN / Unknown 04/06/2025 11:51 AM CDT 04/06/2025 11:51 AM CDT Caryl Shi DO CHEMISTRY Final Resu lt [facility] [address] [place] [address], [place] [phone] [facility] [address] [place] [address] * AMB EPIDURAL STEROID INJECTION (03/31/2025 12:00 AM CDT) Luis Eduardo Watts MD NEUROLOGY ORD Final Resu lt * NM CARDIAC MPI STRESS TEST 2 DAY PANEL (03/25/2025 1:30 PM CDT) Anatomical Region Laterality Modality HEART Nuclear Medicine 03/25/2025 12:4 4 PM CDT Narrative 03/25/2025 2:31 PM CDT Toll -free: [phone] [employer] MYOCARDIAL PERFUSION IMAGING REPORT REST/STRESS SINGLE ISOTOPE GATED SPECT IMAGING Patient Name: CASSIE RIVAS JR. Gender: [place] Height: 74 in Weight: 315 lb Study Date: 03/25/2025 12:44:45 PM BSA: 2.64 m : 1960 64 years BMI: 40.44 kg/m Ord. Prov.: CARYL SHI Monitoring Prov.: Natalia Choudhary Performing Site [facility] Clinical History: Chest pain. No known coronary [...] Saúl Murray MD - 03/25/2025 Toll -free: [phone] [employer] MYOCARDIAL PERFUSION IMAGING REPORT REST/STRESS SINGLE ISOTOPE GATED SPECT IMAGING Patient Name: CASSIE RIVAS JR. Gender: [place] Height: 74 in Weight: 315 lb Study Date: 03/25/2025 12:44:45 PM BSA: 2.64 m : 1960 64 years BMI: 40.44 kg/m Ord. Prov.: CARYL SHI Monitoring Prov.: Natalia Choudhary Performing Site [facility] Clinical History: Chest pain. No known coronary [...] by Christiano Collazo 03/25/2025 2:31:23 PM. Final us Caryl Shi DO NM Final Resu lt * SCAN-STRESS TEST (03/25/2025 12:00 AM CDT) Anatomical Region Laterality Modality Ultrasound, Othe r Narrative 03/25/2025 12:00 AM CDT Ordered by an unspecified provider. us Other Clinical Staff OTHER Final Resul t * (ABNORMAL) HEMOGLOBIN A1C (03/17/2025 4:23 PM CDT) HEMOGLOBIN A1C 6.8(H) <5.7 % [employer] Comment: For someone without known diabetes, [...] 4:23 PM CDT 03/17/2025 4:23 PM CDT us Caryl Shi DO CHEMISTRY Final Resu lt Performing Organization Address City/[facility]/ZIP Co de Phone Number [employer] [facility] [address] [place] [address], [facility] [address] [place] [address] * HEMOGLOBIN (03/17/2025 4:23 PM CDT) HEMOGLOBIN 15.9 13.2 - 17.1 g/dL [facility] Blood BLOOD SPECIMEN / Unknown 03/17/2025 4:23 PM CDT 03/17/2025 4:23 PM CDT us Caryl Shi DO HEMATOLOGY Final Resu lt Performing Organization Address [facility] Co de Phone Number [employer] [address] [address], [facility] [address] [place] [address] * (ABNORMAL) BASIC METABOLIC PANEL (03/17/2025 4:23 PM CDT) GLUCOSE 137(H) 65 - 99 mg/dL [facility] Comment: Fasting reference interval For someone without known diabetes, a glucose value >125 mg/dL indicates that they may have diabetes and this should be confirmed with a follow-up test. UREA NITROGEN (BUN) 31(H) 7 - 25 mg/dL [facility] CREATININE 1.29 0.70 - 1.35 mg/dL [facility] EGFR 61 > OR = 60 mL/min/1.7 3m2 [facility] BUN/CREATININE RATIO 24(H) 6 - 22 (calc) [facility] SODIUM 140 135 - 146 mmol/L [facility] POTASSIUM 4.1 3.5 - 5.3 mmol/L [facility] CHLORIDE 94(L) 98 - 110 mmol/L [facility] CARBON DIOXIDE 32 20 - 32 mmol/L [facility] ELECTROLYTE BALANCE 14 7 - 17 mmol/L (calc) [facility] CALCIUM 9.6 8.6 - 10.3 mg/dL [facility] Blood BLOOD SPECIMEN / Unknown 03/17/2025 4:23 PM CDT 03/17/2025 4:23 PM CDT Caryl Shi DO CHEMISTRY Final Resu lt [employer] [facility] [address] [place] [address], [facility] [address] [place] [address] * EKG 12 LEAD (02/19/2025 10:11 AM CDT) us Caryl Shi DO EKG ORD Final Resu lt * [place] READING EKG - NO CHARGE, COMP ONLY (02/19/2025 10:10 AM CDT) us Caryl Shi DO PB - PROVIDER READINGS Fin al Result * US ABD AORTA SCREENING [[id number]] (08/27/2023 2:10 PM [employer]) Anatomical Region Laterality Modality Abdomen, AORTA Ultrasound 08/27/2023 2:16 PM [employer] Narrative 08/27/2023 2:16 PM [employer]TER For Patients: As a result of the [...] REFLEX MEASURED LDL (07/26/2023 2:25 PM CDT) [facility] CHOLESTEROL,TOTAL 146 100 - 199 mg/dL 07/26/2023 10:45 PM CDT [employer] [facility] [facility] Comment: Cholesterol, Total Reference Ranges Desirable <200 mg/dL Borderline 200-239 mg/dL High >=240 mg/dL TRIGLYCERIDES 436(H) <150 mg/dL 07/26/2023 10:45 PM CDT [facility] [employer] [facility] HDL CHOLESTEROL 32(L) >40 mg/dL 11/02/202 3 10:45 PM CDT [facility] NON-HDL CHOLESTEROL 114 <145 mg/dl 07/26/2023 10:45 PM CDT [facility] CHOL/HDL RATIO 4.56(H) <4.50 07/26/2023 10:45 PM CDT [facility] LDL CHOLESTEROL 10:45 PM CDT [facility] Comment:Invalid LDL when Tri g >400. VLDL CHOLESTEROL COMMENT 07/26/2023 10:45 PM CDT [facility] Comment:Unable to calculate VLDL. PROVIDER ORDERED STATUS FASTING 07/26/2023 10:45 PM CDT [facility] Blood BLOOD SPECIMEN / Unknown Venipuncture / Unknown 07/26/2023 2:25 PM CDT 07/26/2023 2:25 PM CDT us Catia Swift MD CHEMISTRY Final Resul t [facility] [address] [place] [address], from Last 3 Months or Most Recently Relevant to Health Maintenance Insurance [facility] MEDICARE ADVANTAGE MEDICARE PART A HB ONLY MEDICARE PART B HB ONLY [facility] Advance Directives * Full Code (Latest Code Status on File) Date Activated Date Inactivated Comments 04/15/2025 11:34 AM 04/16/2025 12:52 AM pre consen t form Question Answer Comments Code Status Discussion: Reviewed Preferences Care Teams Shift Production Supervisor Relationship Specialty Start Date End Date Caryl Shi DO [address] [place] [address] PCP - General Family Practice 07/23/23 Sarahi Roche, RN [address] [place] [address] Wildlife Biologist 06/01/23
--- OUTSIDE RECORDS SUMMARY | 2025-05-20 22:17 | XMS_ITS | Encounter Summary ---
Author Organization [place] Address [address] [place] [address]. [place] [address] Care Team Providers Care Hand Brush Filler Name Role Phone Maya Goyal MD Primary Care Provider Unavailabl Maya Stallworth MD Unavailable Unavailable Mehdi Sen MD Unavailable [phone] Erlin Delcid MD Unavailable Elicia Bedoya [facility] Unavailable [phone] Kae Whipple [facility] Unavailable Mehdi BassM Unavailable [phone] Kae Whipple [facility] Unavailable Maya Goyal MD Unavailable Unavailable No Ref-Primary, Physician Primary Care Provider Mehdi Bass DPM Unavailable [phone] [facility] Unavailable Reason for Visit * Reason Comments Medication Refill Encounter Details Date Type Department Care Team (Late st Contact Info) Description 10/25/2020 [facility] [address] [place] [address] Maya Goyal MD INACTIVE IN [place] 08/23/2024 Medication Refill Social History Tobacco Use [...] Sex Assigned at Male 09/17/2018 5:00 PM MAILROOM CLERK Legal Sex Male 3:11 AM MAILROOM CLERK Gender Identity Male 09/17/2018 5:00 PM MAILROOM CLERK Sexual Orientation Straight 09/17/2018 5: 00 PM MAILROOM CLERK COVID-19 Exposure Response Date Recorded In the last month, have you been in contact with someone who was confirmed or suspected to have Coronavirus / COVID-19? No / Unsure 10/21/2020 10:08 AM MAILROOM CLERK documented as of this encounter Miscellaneous Notes * Telephone Encounter - Susan Kohler RN - 10/26/2020 11:53 AM MAILROOM CLERK Patient has refills remaining with requesting pharmacy. Susan Cancino - Registered Nurse [facility] ROOM CLERK documented in this encounter Plan of Treatment Not on file documented as of this encounter Visit Diagnoses Diagnosis Type 2 diabetes mellitus with stage 1 chronic kidney disease, without long-term current use of insulin (H) documented in this encounter Additional Health Concerns Assessment Noted Time PHQ-9 Depression Total Score: 10 020 8:55 AM CDT documented as of this encounter Care Teams Hand Brush Filler Relationship Specialty Start Date End Date Maya Goyal MD PCP - General 05/03/04 11/14/22 No Ref-Primary, Physician PCP - General 11/15/22 Maya Goyal MD Assigned PCP 06/27/12 10/17/23 Mehdi Sen MD [address] [place] [address] Assigned Musculoskeletal Provider 07/16/20 12/18/20 Erlin Delcid MD [address] [place] [address] [place] [address] Assigned Surgical Provider 09/12/20 Elicia Bedoya, [facility] [address] [facility] 812 [place] [address] Pharmacist Pharmacist 11/09/20 12/06/20 Kae Whipple, [facility] [address] [place] [address] Pharmacist Pharmacist 11/30/20 12/06/20 Mehdi Bass DPM [id number] [place] [address] [place] [address] Assigned Musculoskeletal Provider 08/14/21 10/27/22 Kae Whipple [facility] [address] [place] [address] Assigned MTM Pharmacist 03/18/22 Maya Goyal MD Assigned Pain Medication Provider 10/02/22 03/23/23 Mehdi Bass DPM [address] [place] [address] [place] [address] Assigned Surgical Provider 10/28/22 [facility] [address] [place] [address] Assigned PCP 10/18/23 12/13/24 documented as of this encounter
--- OUTSIDE RECORDS SUMMARY | 2025-05-20 22:17 | XMS_ITS | Encounter Summary ---
Author Organization [place] Address [address] [place] [address]. [place] [address] Care Team Providers Care Build Technician Name Role Phone Maya Goyal MD Primary Care Provider UnavailMaya Vazquez MD Unavailable Unavailable Erlin Delicd MD Unavailable [phone] Mehdi Bass DPM Unavailable [phone] SarabjitKae chew [facility] Unavailable Maya Goyal MD Unavailable Unavailable No Ref-Primary, Physician Primary Care Provider Mehdi Bass DPM Unavailable [phone] [facility] Unavailable Encounter [...] Sex Assigned at Male 09/17/2018 5:00 PM COMMUNITY EDUCATOR Legal Sex Male 3:11 AM COMMUNITY EDUCATOR Gender Identity Male 09/17/2018 5:00 PM COMMUNITY EDUCATOR Sexual Orientation Straight 09/17/2018 5: 00 PM COMMUNITY EDUCATOR COVID-19 Exposure Response Date Recorded In the [...] documented as of this encounter Care Teams Build Technician Relationship Specialty Start Date End Date Maya Goyal MD PCP - General 05/03/04 11/14/22 No Ref-Primary, Physician PCP - General 11/15/22 Maya Goyal MD Assigned PCP 06/27/12 10/17/23 Erlin Delcid MD [address] [address] Assigned Surgical Provider 09/12/20 [place] [address] [facility] [address] [place] [address] Assigned Musculoskeletal Provider 08/14/21 10/27/22 Kae Whipple [facility] [address] [place] [address] Assigned MTM Pharmacist 03/18/22 Maya Goyal MD Assigned Pain Medication Provider 10/02/22 03/23/23 [place] [address] [facility] [address] [place] [address] Assigned Surgical Provider 10/28/22 [facility] [place], [address] [address] Assigned PCP 10/18/23 12/13/24 documented as of this encounter
--- OUTSIDE RECORDS SUMMARY | 2025-05-20 22:17 | XMS_ITS | Encounter Summary ---
Author Organization [place] Address [address] [place] [address]. [place] [address] Care Team Providers Care Belt Knife Feeder Name Role Phone Maya Goyal MD Primary Care Provider UnavailMaya Vazquez MD Unavailable Unavailable Mehdi Sen MD Unavailable [phone] Erlin Delcid MD Unavailable Elicia Bedoya [facility] Unavailable Kae Whipple [facility] Unavailable [phone] Mehdi Bass DPM Unavailable [phone] Kae Whipple [facility] Unavailable [phone] Maya Goyal MD Unavailable Unavailable No Ref-Primary, Physician Primary Care Provider Mehdi Bass DPM Unavailable [phone] [facility] Unavailable Encounter Details Date Type Department Care Team (Late st Contact Info) Description 11/01/2020 [facility] [place] [address] [place] [address] Erlin Delcid MD [address] [place] [address] [place] [address] Social History Tobacco Use Types Packs/Day [...] Sex Assigned at Male 09/17/2018 5:00 PM CUT FILER Legal Sex Male 3:11 AM CUT FILER Gender Identity Male 09/17/2018 5:00 PM CUT FILER Sexual Orientation Straight 09/17/2018 5: 00 PM CUT FILER COVID-19 Exposure Response Date Recorded In the last month, have you been in contact with someone who was confirmed or suspected to have Coronavirus / COVID-19? No / Unsure 11/04/2020 1:14 PM CUT FILER documented as of this encounter Plan of Treatment Not on file documented as of this encounter Visit Diagnoses Not on filedocumented in this encounter Additional Health Concerns Assessment Noted Time PHQ-9 Depression Total Score: 10 020 8:55 AM CDT documented as of this encounter Care Teams Belt Knife Feeder Relationship Specialty Start Date End Date Maya Goyal MD PCP - General 05/03/04 11/14/22 No Ref-Primary, Physician PCP - General 11/15/22 Maya Goyal MD Assigned PCP 06/27/12 10/17/23 Mehdi Sen MD [address] [place], [place] [address] Assigned Musculoskeletal Provider 07/16/20 12/18/20 Erlin Delcid MD [address] [facility] [address] [address] Assigned Surgical Provider 09/12/20 Elicia Bedoya, [facility] [address] [place] [address] 812 [place], [place] [address] Pharmacist Pharmacist 11/09/20 12/06/20 Kae Whipple [facility] [address] [place] [address] Pharmacist Pharmacist 11/30/20 12/06/20 Mehdi Bass DPM [address] [place] [address] [place] [address] Assigned Musculoskeletal Provider 08/14/21 10/27/22 Kae Whipple [facility] [address] [place] [address] Assigned MTM Pharmacist 03/18/22 Maya Goyal MD Assigned Pain Medication Provider 10/02/22 03/23/23 Mehdi Bass DPM [address] [place] [address] Assigned Surgical Provider 10/28/22 [facility] [address] [place] [address] Assigned PCP 10/18/23 12/13/24 documented as of this encounter
--- OUTSIDE RECORDS SUMMARY | 2025-05-20 22:17 | XMS_ITS | Encounter Summary ---
Author Organization [place] Address [address] [place] [address]. [place] [address] Care Team Providers Care Health Care Coach Name Role Phone Maya Goyal MD Primary Care Provider Unavailabl Maya Stallworth MD Unavailable Unavailable Mehdi Sen MD Unavailable [phone] Erlin Delcid MD Unavailable Elicia Bedoya [facility] Unavailable Kae Whipple [facility] Unavailable Mehdi BassM Unavailable [phone] Kae Whipple [facility] Unavailable [phone] Maya Goyal MD Unavailable Unavailable No Ref-Primary, Physician Primary Care Provider Mehdi Bass DPM Unavailable [phone] [facility] Unavailable Reason for Visit * Reason Comments Medication Refill Encounter Details Date Type Department Care Team (Late st Contact Info) Description 09/30/2020 [facility] [address] [place] [address] Maya Goyal MD INACTIVE IN [place] 08/23/2024 Medication Refill Social History Tobacco Use [...] Sex Assigned at Male 09/17/2018 5:00 PM TRIM SETTER HELPER Legal Sex Male 3:11 AM TRIM SETTER HELPER Gender Identity Male 09/17/2018 5:00 PM TRIM SETTER HELPER Sexual Orientation Straight 09/17/2018 5: 00 PM TRIM SETTER HELPER COVID-19 Exposure Response Date Recorded In the last month, have you been in contact with someone who was confirmed or suspected to have Coronavirus / COVID-19? Yes 09/07/2020 1:45 PM TRIM SETTER HELPER documented as of this encounter Miscellaneous Notes * Telephone Encounter - Eva Garcia LPN - 10/05/2020 11:58 AM TRIM SETTER HELPER Spoke with Patient he is aware and transferred to appionent desk Valery Garcia LPN SETTER HELPER * Telephone Encounter - Basilia Felipe MD - 10/01/2020 4:04 PM TRIM SETTER HELPER Please have him schedule an apptsoon, as he is almost due for diabetic check and can recheck sodiumsame time SETTER HELPER * Telephone Encounter - India Tapia RN - 10/01/2020 9:58 AM CST Routing refill request to provider for review/approval because: Labs out of range: Sodium Date Value Ref Range Status 05/24/2020 127 (L) 133 - 144 mmol/L Final India Tapia RN, BSN SETTER HELPER documented in this encounter Plan of Treatment Not on file documented as of this encounter Visit Diagnoses Diagnosis Benign essential hypertension Essential hypertension, benign documented in this encounter Additional Health Concerns Assessment Noted Time PHQ-9 Depression Total Score: 10 020 8:55 AM CDT documented as of this encounter Care Teams Health Care Coach Relationship Specialty Start Date End Date Maya Goyal MD PCP - General 05/03/04 11/14/22 No Ref-Primary, Physician PCP - General 11/15/22 Maya Goyal MD Assigned PCP 06/27/12 10/17/23 Mehdi Sen MD [address] [place] [address] Assigned Musculoskeletal Provider 07/16/20 12/18/20 Erlin Delcid MD [address] [facility] 500 [place] [address] Assigned Surgical Provider 09/12/20 Elicia Bedoya [facility] [address] [facility] 812 [place] [address] Pharmacist Pharmacist 11/09/20 12/06/20 Kae Whipple [facility] [address] [place] [address] Pharmacist Pharmacist 11/30/20 12/06/20 [place] [address] [facility] 300 [place] [address] Assigned Musculoskeletal Provider 08/14/21 10/27/22 Kae Whipple [facility] [address] [place] [address] Assigned MTM Pharmacist 03/18/22 Maya Goyal MD Assigned Pain Medication Provider 10/02/22 03/23/23 Mehdi Bass DPM [address] [facility] 300 [place] [address] Assigned Surgical Provider 10/28/[address] [address] Assigned PCP 10/18/23 12/13/24 documented as of this encounter
--- OUTSIDE RECORDS SUMMARY | 2025-05-20 22:17 | XMS_ITS | Encounter Summary ---
Author Organization [place] Address [address] [place] [address]. [place] [address] Care Team Providers Care Evaluation Manager Name Role Phone Maya Goyal MD Primary Care Provider Unavailabl Maya Stallworth MD Unavailable Unavailable Mehdi Sen MD Unavailable [phone] Erlin Delcid MD Unavailable Elicia Bedoya [facility] Unavailable [phone] Kae Whipple [facility] Unavailable Mehdi Bass DPM Unavailable [phone] Kae Whipple [facility] Unavailable Maya Goyal MD Unavailable Unavailable No Ref-Primary, Physician Primary Care Provider Mehdi Bass DPM Unavailable [phone] [facility] Unavailable Encounter Details Date Type Department Care Team (Late st Contact Info) Description 11/01/2020 [facility] [address] [place] [address] Erlin Delcid MD 110[address] [facility] 500 [place], [place] [address] Social History Tobacco Use Types Packs/Day Years [...] at Male 09/17/2018 5:00 PM HOME HEALTH SPECIALIST Legal Sex Male 3:11 AM HOME HEALTH SPECIALIST Gender Identity Male 09/17/2018 5:00 PM HOME HEALTH SPECIALIST Sexual Orientation Straight 09/17/2018 5: 00 PM HOME HEALTH SPECIALIST COVID-19 Exposure Response Date Recorded In the last month, have you been in contact with someone who was confirmed or suspected to have Coronavirus / COVID-19? No / Unsure 11/04/2020 1:14 PM HOME HEALTH SPECIALIST documented as of this encounter Plan of Treatment Not on file documented as of this encounter Visit Diagnoses Not on filedocumented in this encounter Additional Health Concerns Assessment Noted Time PHQ-9 Depression Total Score: 10 020 8:55 AM CDT documented as of this encounter Care Teams Evaluation Manager Relationship Specialty Start Date End Date Maya Goyal MD PCP - General 05/03/04 11/14/22 No Ref-Primary, Physician PCP - General 11/15/22 Maya Goyal MD Assigned PCP 06/27/12 10/17/23 Mehdi Sen MD 9[address] [place], [place] [address] Assigned Musculoskeletal Provider 07/16/20 12/18/20 Erlin Delcid MD [address] [facility] [address] [address] Assigned Surgical Provider 09/12/20 Elicia Bedoya, [facility] [address] [place] [address] 812 [place] [address] Pharmacist Pharmacist 11/09/20 12/06/20 Kae Whipple [facility] 303 [place] [address] Pharmacist Pharmacist 11/30/20 12/06/20 Mehdi Bass DPM [address] [place] [address] [address] [place] [address] Assigned Musculoskeletal Provider 08/14/21 10/27/22 Kae Whipple [facility] [address] [place] [address] Assigned MTM Pharmacist 03/18/22 Maya Goyal MD Assigned Pain Medication Provider 10/02/22 03/23/23 Mehdi Bass DPM [address] [place] [address] [place] [address] Assigned Surgical Provider 10/28/22 [facility] 303 [place] [address] Assigned PCP 10/18/23 12/13/24 documented as of this encounter
--- OUTSIDE RECORDS SUMMARY | 2025-05-20 22:18 | XMS_ITS | Clinical Summary ---
Author Organization [place] Address [address] [place] [address]. [place] [address] Care Team Providers Care Gunite Mixer Name Role Phone No Ref-Primary, Physician Primary [...] Total Score(s): No flowsheet data found. Last [facility] website verification: 09/19/19 [email or web address] CKD (chronic kidney disease) stage 1, GFR [...] Comments Circulatory Father AAA Heart Disease Father [place] with sudden d eath, complicated AAA repair [...] Sex Assigned at Male 09/17/2018 5:00 PM TRACK LEADER Legal Sex Male 3:11 AM TRACK LEADER Gender Identity Male 09/17/2018 5:00 PM TRACK LEADER Sexual Orientation Straight 09/17/2018 5: 00 PM TRACK LEADER Last Filed Vital Signs Vital Sign Reading Time Taken Comments Blood Pressure 138/88 11/17/2021 2:13 PM TRACK LEADER Pulse 99 11/17/2021 2:13 PM TRACK LEADER Temperature 37.1 C (98.7 F) 11/17/2021 2:13 PM TRACK LEADER Respiratory Rate 18 11/17/2021 2:13 PM TRACK LEADER Oxygen Saturation 98% 11/17/2021 2:13 PM TRACK LEADER Inhaled Oxygen Concentration - - Weight 154.7 kg (341 lb) 11/17/2021 2:13 PM TRACK LEADER Height 188 cm (6' 2) 11/17/2021 2:13 PM TRACK LEADER Body Mass Index 43.78 11/17/2021 2:13 PM TRACK LEADER Plan of Treatment Not on file Insurance [place] [employer] [facility] [employer] INSURANCE [employer] CLAIM[employer] MANAG[employer] CLAIM[employer]NAG[employer] NONE (Work) [address] [place], [place] [id number] [employer] CLAIMS MANAGEMENT * Guarantor: Rafa Rivas Account Type Relation to Patient Date of Phone Billing Address Medication Therapy Self 1960 [address], [place] [address] Advance Directives For more information, please contact: [phone] * Full Code (Latest Code Status on [...] 1:26 PM 09/12/2017 10:19 AM Care Teams Gunite Mixer Relationship Specialty Start Date End Date No Ref-Primary, Physician PCP - General 11/15/22
--- OUTSIDE RECORDS SUMMARY | 2025-05-20 22:18 | XMS_ITS | Clinical Summary ---
Author Organization [facility] Address [address] [place] [address] Care Team Providers Care Ripening Room Attendant Name Role Phone Shar Hoff MD Unavailable [phone] Doctor, No Primary Care Provider Unavailabl e [...] 03/29/2021, 02/02/2021 Medicare Wellness Visit 06/28/2023 06/28/2022 Microalbumin Q12 Month 01/05/2024 01/04/2023 Creatinine 04/25/2024 04/25/2023, 03/26, 04/13/2021, Additional history [...] - 145 mMol/L 07/19/2016 5:16 AM CDT [facility] Potassium 4.0 3.5 - 5.1 mMol/L 07/19/2016 5:16 AM CDT [facility] Chloride 104 98 - 112 mMol/L 07/19/2016 5:16 AM CDT [facility] Carbon Dioxide 25 21 - 32 mMol/L 07/19/2016 5:16 AM T [facility] BUN (Urea Nitro) 17 7 - 24 mg/dL 07/19/2016 5:16 AM T [facility] Creatinine 0.83 0.70 - 1.30 mg/dL 07/19/2016 5:16 AM T [facility] Est GFR (CKD-EPI) >60 >60 mL/min 07/19/2016 5:16 AM T [facility] EST GFR IF AM >60 >60 mL/min 07/19/2016 5:16 AM T [facility] Glucose 99 74 - 106 mg/dL 07/19/2016 5:16 AM T [facility] Calcium, Serum 8.4(L) 8.5 - 10.1 mg/dL 07/19/2016 5:16 AM T [facility] Anion Gap 11.0 0.0 - 15.0 mMol/L 07/19/2016 5:16 AM T [facility] Blood 07/19/2016 4:45 AM CDT 07/19/2016 4:48 AM CDT us Brigette Pena MD CHEMISTRY ORDERABLE Final Re sult [facility] [address] [place] [address] from Last 3 Months or Most Recently Relevant to Health Maintenance Insurance [facility] [place] [facility] Address: [facility] [address] [place] [address] [facility] MEDICARE ADVANTAGE Advance Directives For more information, please contact: [phone] * Full Code (Latest Code Status on File) Date Activated Date Inactivated Comments 07/19/2016 6:14 AM 07/19/2016 4:02 PM Question Answer Comments How was code status determined? Patient Care Teams Ripening Room Attendant Relationship Specialty Start Date End Date Doctor, No No ad PCP - General Radiology 01/01/23 Shar Hoff MD [address] [place] [address] [place] [address] Neurology 01/01/23
--- OUTSIDE RECORDS SUMMARY | 2025-05-20 22:18 | XMS_ITS | Encounter Summary ---
Author Organization [place] Address [address] [place] [address]. [place] [address] Care Team Providers Care Legal Adviser Name Role Phone Maya Goyal MD Primary Care Provider UnavailMaya Vazquez MD Unavailable Unavailable Erlin Delcid MD Unavailable [phone] Mehdi Bass DPM Unavailable [phone] Kae Whipple [facility] Unavailable [phone] Maya Goyal MD Unavailable Unavailable No Ref-Primary, Physician Primary Care Provider Mehdi Bass DPM Unavailable [phone] [facility] Unavailable Encounter Details Date Type Department Care Team (Late st Contact Info) Description 01/12/2022 [facility] [address] [place] [address] Maya Goyal MD INACTIVE IN [place] 08/23/2024 Social History Tobacco Use Types Packs/Day [...] Assigned at Male 09/17/2018 5:00 PM IT ARCHITECTURE CONSULTANT Legal Sex Male 3:11 AM IT ARCHITECTURE CONSULTANT Gender Identity Male 09/17/2018 5:00 PM IT ARCHITECTURE CONSULTANT Sexual Orientation Straight 09/17/2018 5: 00 PM IT ARCHITECTURE CONSULTANT documented as of this encounter Plan of Treatment Not on file documented as of this encounter Visit Diagnoses Not on filedocumented in this encounter Additional Health Concerns Assessment Noted Time PHQ-9 Depression Total Score: 10 021 2:58 PM CDT documented as of this encounter Care Teams Legal Adviser Relationship Specialty Start Date End Date Maya Goyal MD PCP - General 05/03/04 11/14/22 No Ref-Primary, Physician PCP - General 11/15/22 Maya Goyal MD Assigned PCP 06/27/12 10/17/23 Erlin Delcid MD [address] [address] Assigned Surgical Provider 09/12/20 [place] [address] [facility] [address] [place] [address] Assigned Musculoskeletal Provider 08/14/21 10/27/22 Kae Whipple [facility] [address] [place] [address] Assigned MTM Pharmacist 03/18/22 Maya Goyal MD Assigned Pain Medication Provider 10/02/22 03/23/23 Mehdi Bass DPM [address] [address] [place] [address] Assigned Surgical Provider 10/28/22 [facility] [place], [address] [address] Assigned PCP 10/18/23 12/13/24 documented as of this encounter
--- OUTSIDE RECORDS SUMMARY | 2025-05-20 22:18 | XMS_ITS | Encounter Summary ---
Author Organization [place] Address [address] [place] [address] Care Team Providers Care Pie Crust Mixer Name Role Phone Maya Goyal MD Primary Care Provider Unavailabl e None Primary Care Provider Unavailnikole e Eva Mckenna RN Unavailable [phone] Maya Goyal MD Unavailable Unavailable Maya Goyal MD Unavailable Unavailable Mehdi Sen MD Unavailable [phone] Erlin Delcid MD Unavailable [phone] Elicia Bedoya [facility] Unavailable [phone] Kae Whipple [facility] Unavailable [phone] Mehdi BassM Unavailable [phone] Kae Whipple [facility] Unavailable [phone] Maya Goyal MD Unavailable Unavailable No Ref-Primary, Physician Primary Care Provider Mehdi Bass DPM Unavailable [phone] [facility] Unavailable Encounter Details Date Type Department Care Team (Late st Contact Info) Description 01/25/2003 [facility] [address] [place] [address] Maya Goyal MD INACTIVE IN [place] 08/23/2024 ER ENCOUNTER (Primary Dx) Social History [...] Assigned at Male 09/17/2018 5:00 PM SENIOR TECHNICAL ARCHITECT Legal Sex Male 3:11 AM SENIOR TECHNICAL ARCHITECT Gender Identity Male 09/17/2018 5:00 PM SENIOR TECHNICAL ARCHITECT Sexual Orientation Straight 09/17/2018 5: 00 PM SENIOR TECHNICAL ARCHITECT documented as of this encounter Progress Notes * 01/25/2003 11:59 PM CDTAddended by: CAMERON MURRY on: 02/03/2003,11:27 AM Modules accepted: Progress Notes 00: 00 Emergency Department Encounter-EDWARD ERVIN () [Entered: 00:00 Transcri ption ([facility])] : 56 PRIMARY MD: Maya Goyal [...] No known d rug allergies. 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 He [...] re-evaluation. [id number]_ EDWARD DICKINSON MD [place]: Document: [id number] [place], [place] Name: CASSIE RIVAS EMERGENCY ROOM ENCOUNTER Page 2 of 2 LCN: ERB DSC: [place], [place] Name: MR#: : Admit Date: CASSIE [...] 08/27/2020 08/27/2020 09/17/2020 11:4 0 PM SENIOR TECHNICAL ARCHITECT documented as of this encounter Care Teams Pie Crust Mixer Relationship Specialty Start Date End Date Maya Goyal MD PCP - General 05/03/04 11/14/22 None PCP - General 12/01/02 05/02/04 Maya Goyal MD INACTIVE IN [place] 08/23/2024 PCP - Assigned PCP 10/22/09 11/26/18 No Ref-Primary, Physician PCP - General 11/15/22 Eva Mckenna, [facility] Otol[facility]ology Nurse Primary Care - CC 02/19/18 Maya Goyal MD Assigned PCP 06/27/12 10/17/23 Mehdi Sen MD 9[address] [place] [address] Assigned Musculoskeletal Provider 07/16/20 12/18/20 Erlin Delcid MD [address] [facility] 500 [place] [address] Assigned Surgical Provider 09/12/20 Elicia Bedoya, [facility] [address] [facility] [address] [place] [address] Pharmacist Pharmacist 11/09/20 12/06/20 Kae Whipple [facility] [address] [place] [address] Pharmacist Pharmacist 11/30/20 12/06/20 Meh[place] Bass DPM [address] [facility] [address] [place] [address] Assigned Musculoskeletal Provider 08/14/21 10/27/22 Kae Whipple [facility] 303 [place] [address] Assigned MTM Pharmacist 03/18/22 Maya Goyal MD Assigned Pain Medication Provider 10/02/22 03/23/23 Mehdi Bass DPM [address] [facility] 300 [place] [address] Assigned Surgical Provider 10/28/22 [facility] 303 [place] [address] Assigned PCP 10/18/23 12/13/24 documented as of this encounter
--- OUTSIDE RECORDS SUMMARY | 2025-05-20 22:18 | XMS_ITS | Encounter Summary ---
Author Organization [place] Address [address] [place] [address]. [place] [address] Care Team Providers Care Earth Science Technician Name Role Phone Maya Goyal MD Primary Care Provider Unavailabl Maya Stallworth MD Unavailable Unavailable Erlin Delcid MD Unavailable [phone] Mehdi Bass DPM Unavailable [phone] Kae Whipple [facility] Unavailable [phone] Maya Goyal MD Unavailable Unavailable No Ref-Primary, Physician Primary Care Provider Mehdi Bass DPM Unavailable [phone] [facility] Unavailable Encounter Details Date Type Department Care Team (Late st Contact Info) Description 09/06/2021 [facility] [address] [place] [address] Eden Lei, [facility] Social History Tobacco Use Types Packs/Day Years [...] Sex Assigned at Male 09/17/2018 5:00 PM JUICE MIXER Legal Sex Male 3:11 AM JUICE MIXER Gender Identity Male 09/17/2018 5:00 PM JUICE MIXER Sexual Orientation Straight 09/17/2018 5: 00 PM JUICE MIXER COVID-19 Exposure Response Date Recorded In the last month, have you been in contact with someone who was confirmed or suspected to have Coronavirus / COVID-19? No / Unsure 08/17/2021 12:57 PM JUICE MIXER documented as of this encounter Plan of Treatment Not on file documented as of this encounter Visit Diagnoses Not on filedocumented in this encounter Additional Health Concerns Assessment Noted Time PHQ-9 Depression Total Score: 10 021 2:58 PM CDT documented as of this encounter Care Teams Earth Science Technician Relationship Specialty Start Date End Date Maya Goyal MD PCP - General 05/03/04 11/14/22 No Ref-Primary, Physician PCP - General 11/15/22 Maya Goyal MD Assigned PCP 06/27/12 10/17/23 Erlin Delcid MD [address] [address] Assigned Surgical Provider 09/12/20 Mehdi Bass DPM [address] [employer] [address] [place] [id number] Assigned Musculoskeletal Provider 08/14/21 10/27/22 Kae Whipple [facility] [address] [place], [place] [address] Assigned MTM Pharmacist 03/18/22 Maya Goyal MD Assigned Pain Medication Provider 10/02/22 03/23/23 Mehdi Bass DPM [address] [employer] [address] [place] [address] Assigned Surgical Provider 10/28/22 [facility] [address] [address] Assigned PCP 10/18/23 12/13/24 documented as of this encounter
--- OUTSIDE RECORDS SUMMARY | 2025-05-20 22:18 | XMS_ITS | Encounter Summary ---
Author Organization [place] Address [address] [place] [address] Care Team Providers Care Screen Printing Stencil Preparer Name Role Phone Maya Goyal MD Primary Care Provider UnavailEva Brannon RN Unavailable [phone] Maya Goyal MD Unavailable Unavailable Maya Goyal MD Unavailable Unavailable Mehdi Sen MD Unavailable [phone] Erlin Delcid MD Unavailable [phone] Elicia Bedoya [facility] Unavailable [phone] Kae Whipple [facility] Unavailable Mehdi Bass DPM Unavailable [phone] Kae Whipple [facility] Unavailable [phone] Maya Goyal MD Unavailable Unavailable No Ref-Primary, Physician Primary Care Provider Mehdi BassM Unavailable [phone] [facility] [place] Unavailable Encounter Details Date Type Department Care Team (Late st Contact Info) Description 10/17/2010 [facility] [address] [place] [address] [place] [address] Maya Goyal MD INACTIVE IN [place] 08/23/2024 Social History Tobacco Use Types Packs/Day Years Used Date Smoking Tobacco: Every Day Cigarettes 0.5 20 Alcohol Use Standard Drinks/Week Comments Yes 0 (1 standard drink = 0.6 oz pur e alcohol) Social once every 3 months Sex and Gender Information Value Date Recorded Sex Assigned at Male 09/17/2018 5:00 PM UTILITY FORESTER Legal Sex Male 3:11 AM UTILITY FORESTER Gender Identity Male 09/17/2018 5:00 PM UTILITY FORESTER Sexual Orientation Straight 09/17/2018 5: 00 PM UTILITY FORESTER documented as of this encounter Plan of Treatment Not on file documented as of this encounter Visit Diagnoses Not on filedocumented in this encounter Additional Health Concerns Infection Onset Date Last Indicated Resolved Time COVID-19 08/27/2020 08/27/2020 09/17/2020 11:4 0 PM UTILITY FORESTER documented as of this encounter Care Teams Screen Printing Stencil Preparer Relationship Specialty Start Date End Date Maya Goyal MD PCP - General 05/03/04 11/14/22 Maya Goyal MD INACTIVE IN [place] 08/23/2024 PCP - Assigned PCP 10/22/09 11/26/18 No Ref-Primary, Physician PCP - General 11/15/22 Eva Mckenna RN Clinic Velvet Weaver Primary Care - CC 02/19/18 Maya Goyal MD Assigned PCP 06/27/12 10/17/23 Mehdi Sen MD [address] [place], [place] [id number] Assigned Musculoskeletal Provider 07/16/20 12/18/20 Erlin Delcid MD [address] [address] Assigned Surgical Provider 09/12/20 Elicia Bedoya, [facility] [address] [place] [address] 8[address] [place], [place] [id number] Pharmacist Pharmacist 11/09/20 12/06/20 Kae Whipple [facility] 303 [place] [address] Pharmacist Pharmacist 11/30/20 12/06/20 Mehdi Bass DPM [id number] [place] [address] [address] [place] [address] Assigned Musculoskeletal Provider 08/14/21 10/27/22 Kae Whipple [facility] [address] [place] [address] Assigned MTM Pharmacist 03/18/22 Maya Goyal MD Assigned Pain Medication Provider 10/02/22 03/23/23 Mehdi Bass DPM [id number] [place] [address] [place] [address] Assigned Surgical Provider 10/28/22 [facility] [place] 303 [place] [address] Assigned PCP 10/18/23 12/13/24 documented as of this encounter
--- OUTSIDE RECORDS SUMMARY | 2025-05-20 22:18 | XMS_ITS | Encounter Summary ---
Author Organization [place] Address [address] [place] [address] Care Team Providers Care Wind Farm Operations Manager Name Role Phone Maya Goyal MD Primary Care Provider Unavailabl e None Primary Care Provider Unavailnikole e Eva Mckenna RN Unavailable [phone] Maya Goyal MD Unavailable Unavailable Maya Goyal MD Unavailable Unavailable Mehdi Sen MD Unavailable [phone] Erlin Delcid MD Unavailable [phone] Elicia Bedoya [facility] Unavailable [phone] Kae Whipple [facility] Unavailable [phone] Mehdi BassM Unavailable [phone] Kae Whipple [facility] Unavailable [phone] Maya Goyal MD Unavailable Unavailable No Ref-Primary, Physician Primary Care Provider Mehdi BassM Unavailable [phone] [facility] Unavailable Encounter Details Date Type Department Care Team (Late st Contact Info) Description 02/16/2003 [facility] [address] [address] [place] [address] Maya Goyal MD INACTIVE IN [place] 08/23/2024 ER ENC (Primary Dx) Social History [...] Sex Assigned at Male 09/17/2018 5:00 PM HARDWOOD FLOOR REFINISHER Legal Sex Male 3:11 AM HARDWOOD FLOOR REFINISHER Gender Identity Male 09/17/2018 5:00 PM HARDWOOD FLOOR REFINISHER Sexual Orientation Straight 09/17/2018 5: 00 PM HARDWOOD FLOOR REFINISHER documented as of this encounter Progress Notes * 02/16/2003 11:59 PM RAFA SYKES 00:00 Emergency Department Encounter-[facility] NEISHA [facility]WK () [Ente red: 00:00 Restaurant Managing Partner (HIM)] CHIEF COMPLAINT: Ankle pain. 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 A rolling tool box rolled into his right medial ankle resulting in pain. He p resents now for evaluation. PAST MEDICAL HISTORY: Hypertension and hypercholesterolemia. CURRENT MED ICATIONS: Lotrel, Zocor and gemfibrozil. ALLERGIES: No known allergies. SOCIAL HISTORY: The carlos zavala works for [employer] as above. He is a one pack [...] and dry and as above. [facility] DEPARTMENT COURSE AND TREATMENT: The [...] 1. Rest, ice and elevation. 2. Ibuprofen [id number] prn. 3. Work restricti ons as a [...] COVID-19 08/27/2020 08/27/2020 09/17/2020 11:4 0 PM HARDWOOD FLOOR REFINISHER documented as of this encounter Care Teams Wind Farm Operations Manager Relationship Specialty Start Date End Date Maya Goyal MD PCP - General 05/03/04 11/14/22 None PCP - General 12/01/02 05/02/04 Maya Goyal MD INACTIVE IN [place] 08/23/2024 PCP - Assigned PCP 10/22/09 11/26/18 No Ref-Primary, Physician PCP - General 11/15/22 Eva Mckenna RN Clinic Enterprise Business Architect Primary Care - CC 02/19/18 Maya Goyal MD Assigned PCP 06/27/12 10/17/23 Mehdi Sen MD [address] [place], [place] [address] Assigned Musculoskeletal Provider 07/16/20 12/18/20 Erlin Delcid MD [address] [address] Assigned Surgical Provider 09/12/20 Elicia Bedoya [facility] [address] [place] [address] 812 [place] [address] Pharmacist Pharmacist 11/09/20 12/06/20 Kae Whipple [facility] [address] [place] [address] Pharmacist Pharmacist 11/30/20 12/06/20 Mehdi Bass DPM [id number] [place] [address] [place] [address] Assigned Musculoskeletal Provider 08/14/21 10/27/22 Kae Whipple [facility] [address] [place] [address] Assigned MTM Pharmacist 03/18/22 Maya Goyal MD Assigned Pain Medication Provider 10/02/22 03/23/23 Mehdi Bass DPM [id number] [place] [address] [place] [address] Assigned Surgical Provider 10/28/22 [facility] [address] [place] [address] Assigned PCP 10/18/23 12/13/24 documented as of this encounter
--- OUTSIDE RECORDS SUMMARY | 2025-05-20 22:18 | XMS_ITS | Encounter Summary ---
Author Organization [place] Address [address] [place] [address]. [place] [address] Care Team Providers Care Upholstery Department Supervisor Name Role Phone Maya Goyal MD Primary Care Provider UnavailMaya Vazquez MD Unavailable Unavailable Erlin Delcid MD Unavailable [phone] Mehdi Bass DPM Unavailable [phone] Kae Whipple [facility] Unavailable Maya Goyal MD Unavailable Unavailable No Ref-Primary, Physician Primary Care Provider Mehdi Bass DPQuita Unavailable [phone] [facility] Unavailable Reason for Visit * Reason Onset Date Comments MyChart Communication 11/09/2021 Encounter Details Date Type Department Care Team (Latest Contact Info) Description 11/09/2021 [facility] [place] [address] [place] [address] Maya Goyal MD INACTIVE IN [place] 08/23/2024 MyChart Communication Social History Tobacco Use [...] Sex Assigned at Male 09/17/2018 5:00 PM STRATEGIC PLANNING MANAGER Legal Sex Male 3:11 AM STRATEGIC PLANNING MANAGER Gender Identity Male 09/17/2018 5:00 PM STRATEGIC PLANNING MANAGER Sexual Orientation Straight 09/17/2018 5: 00 PM STRATEGIC PLANNING MANAGER COVID-19 Exposure Response Date Recorded In the last month, have you been in contact with someone who was confirmed or suspected to have Coronavirus / COVID-19? No / Unsure 11/10/2021 9:52 AM STRATEGIC PLANNING MANAGER documented as of this encounter Miscellaneous Notes * Telephone Encounter - Rukhsana Bowden RN - 11/09/2021 12:58 PM STRATEGIC PLANNING MANAGER See [employer] message. Sent his refill request encounter to Dr Goyal. TEGIC PLANNING MANAGER documented in this encounter Plan of Treatment Not on file documented as of this encounter Visit Diagnoses Not on filedocumented in this encounter Additional Health Concerns Assessment Noted Time PHQ-9 Depression Total Score: 10 021 2:58 PM CDT documented as of this encounter Care Teams Upholstery Department Supervisor Relationship Specialty Start Date End Date Maya Goyal MD PCP - General 05/03/04 11/14/22 No Ref-Primary, Physician PCP - General 11/15/22 Maya Goyal MD Assigned PCP 06/27/12 10/17/23 Erlin Delcid MD [address] [place] [address] [place] [address] Assigned Surgical Provider 09/12/20 Mehdi Bass DPM [address] [facility] [address] [place] [address] Assigned Musculoskeletal Provider 08/14/21 10/27/22 Kae Whipple [facility] [address] [place] [address] Assigned MTM Pharmacist 03/18/22 Maya Goyal MD Assigned Pain Medication Provider 10/02/22 03/23/23 Mehdi Bass DPM [address] [facility] [address] [place], [place] [address] Assigned Surgical Provider 10/28/22 [facility] [address] [place], [place] [address] Assigned PCP 10/18/23 12/13/24 documented as of this encounter
--- OUTSIDE RECORDS SUMMARY | 2025-05-20 22:18 | XMS_ITS | Encounter Summary ---
Author Organization [place] Address [address] [place] [address]. [place] [address] Care Team Providers Care Shop Technician Name Role Phone Maya Goyal MD Primary Care Provider UnavailMaya Vazquez MD Unavailable Unavailable Erlin Delcid MD Unavailable Mehdi Bass DPM Unavailable [phone] Kae Whipple [facility] Unavailable Maya Goyal MD Unavailable Unavailable No Ref-Primary, Physician Primary Care Provider Mehdi Bass DPM Unavailable [phone] [facility] Unavailable Reason for Visit * Reason Comments Medication Refill Encounter Details Date Type Department Care Team (Late st Contact Info) Description 07/20/2021 [facility] [address] [place] [phone] Maya Goyal MD INACTIVE IN [place] 08/23/2024 Medication Refill Social History Tobacco Use [...] Sex Assigned at Male 09/17/2018 5:00 PM SUPERVISOR HOME ECONOMICS Legal Sex Male 3:11 AM SUPERVISOR HOME ECONOMICS Gender Identity Male 09/17/2018 5:00 PM SUPERVISOR HOME ECONOMICS Sexual Orientation Straight 09/17/2018 5: 00 PM SUPERVISOR HOME ECONOMICS documented as of this encounter Miscellaneous Notes * Telephone Encounter - Rukhsana Yo RN - 07/20/2021 3:55 PM CDT Prescription approved per [facility] Refill Protocol. * Telephone Encounter - [...] documented as of this encounter Care Teams Shop Technician Relationship Specialty Start Date End Date Maya Goyal MD PCP - General 05/03/04 11/14/22 No Ref-Primary, Physician PCP - General 11/15/22 Maya Goyal MD Assigned PCP 06/27/12 10/17/23 Erlin Delcid MD [address] [place] [address] Assigned Surgical Provider 09/12/20 Mehdi Bass DPM [address] [place] [address] Assigned Musculoskeletal Provider 08/14/21 10/27/22 Kae Whipple [facility] [address] [place] [address] Assigned MTM Pharmacist 03/18/22 Maya Goyal MD Assigned Pain Medication Provider 10/02/22 03/23/23 Mehdi Bass DPM [address] [facility] [address] [place] [address] Assigned Surgical Provider 10/28/22 [facility] [address] [place], [place] [address] Assigned PCP 10/18/23 12/13/24 documented as of this encounter
--- OUTSIDE RECORDS SUMMARY | 2025-05-20 22:18 | XMS_ITS | Encounter Summary ---
Author Organization [place] Address [address] [place] [address] Care Team Providers Care Winding Inspector Name Role Phone Maya Goyal MD Primary Care Provider Unavailabl e None Primary Care Provider Unavailnikole e Eva Mckenna RN Unavailable [phone] Maya Goyal MD Unavailable Unavailable Maya Goyal MD Unavailable Unavailable Mehdi Sen MD Unavailable [phone] Erlin Delcid MD Unavailable [phone] Elicia Bedoya [facility] Unavailable [phone] Kae Wihpple [facility] Unavailable [phone] Mehdi BassM Unavailable [phone] Kae Whipple [facility] Unavailable [phone] Maya Goyal MD Unavailable Unavailable No Ref-Primary, Physician Primary Care Provider Mehdi BassM Unavailable [phone] [facility] Unavailable Encounter Details Date Type Department Care Team (Late st Contact Info) Description 03/10/2003 [facility] [address] [address] Jonathan Casillas MD XXX RETIRED XXX [address] [phone] Social History Tobacco Use Types Packs/Day Years Used Date Smoking Tobacco: Never Assessed Sex and Gender Information Value Date Recorded Sex Assigned at Male 09/17/2018 5:00 PM VESSEL CREW MEMBER Legal Sex Male 3:11 AM VESSEL CREW MEMBER Gender Identity Male 09/17/2018 5:00 PM VESSEL CREW MEMBER Sexual Orientation Straight 09/17/2018 5: 00 PM VESSEL CREW MEMBER documented as of this encounter Plan of Treatment Not on file documented as of this encounter Visit Diagnoses Not on filedocumented in this encounter Additional Health Concerns Infection Onset Date Last Indicated Resolved Time COVID-19 08/27/2020 08/27/2020 09/17/2020 11:4 0 PM VESSEL CREW MEMBER documented as of this encounter Care Teams Winding Inspector Relationship Specialty Start Date End Date Maya Goyal MD PCP - General 05/03/04 11/14/22 None PCP - General 12/01/02 05/02/04 Maya Goyal MD INACTIVE IN [place] 08/23/2024 PCP - Assigned PCP 10/22/09 11/26/18 No Ref-Primary, Physician PCP - General 11/15/22 Eva Mckenna RN Clinic Paint Mixer Primary Care - CC 02/19/18 Maya Goyal MD Assigned PCP 06/27/12 10/17/23 Mehdi Sen MD [address] [place] [address] Assigned Musculoskeletal Provider 07/16/20 12/18/20 Erlin Delcid MD [address] [address] Assigned Surgical Provider 09/12/20 Elicia Bedoya, [facility] [address] [place] [address] [place] [address] Pharmacist Pharmacist 11/09/20 12/06/20 Kae Whipple [facility] [address] [place] [address] Pharmacist Pharmacist 11/30/20 12/06/20 Mehdi Bass DPM [id number] [place] [address] [address] [place] [address] Assigned Musculoskeletal Provider 08/14/21 10/27/22 Kae Whipple [facility] [address] [place] [address] Assigned MTM Pharmacist 03/18/22 Maya Goyal MD Assigned Pain Medication Provider 10/02/22 03/23/23 Mehdi Bass DPM [id number] [place] [address] [address] [place] [address] Assigned Surgical Provider 10/28/22 [facility] [address] [place] [address] Assigned PCP 10/18/23 12/13/24 documented as of this encounter
--- OUTSIDE RECORDS SUMMARY | 2025-05-20 22:18 | XMS_ITS | Encounter Summary ---
Author Organization [facility] Address [address] [place] [address]. [place] [address] Care Team Providers Care Periodontal Assistant Name Role Phone Maya Goyal MD Primary Care Provider UnavailEva Brannon RN Unavailable [phone] Maya Goyal MD Unavailable Unavailable Maya Goyal MD Unavailable Unavailable Mehdi Sen MD Unavailable [phone] Erlin Delcid MD Unavailable [phone] Elicia Bedoya [facility] Unavailable [phone] Kae Whipple [facility] Unavailable [phone] Mehdi Bass DPM Unavailable [phone] Kae Whipple [facility] Unavailable [phone] Maya Goyal MD Unavailable Unavailable No Ref-Primary, Physician Primary Care Provider Mehdi Bass DPM Unavailable [phone] [facility] [...] Sex Assigned at Male 09/17/2018 5:00 PM BEE TENDER Legal Sex Male 3:11 AM BEE TENDER Gender Identity Male 09/17/2018 5:00 PM BEE TENDER Sexual Orientation Straight 09/17/2018 5: 00 PM BEE TENDER documented as of this encounter Plan of Treatment Not on file documented as of this encounter Visit Diagnoses Not on filedocumented in this encounter Additional Health Concerns Infection Onset Date Last Indicated Resolved Time COVID-19 08/27/2020 08/27/2020 09/17/2020 11:4 0 PM BEE TENDER Assessment Noted Time PHQ-9 Depression Total Score: 14 017 11:50 AM BEE TENDER documented as of this encounter Care Teams Periodontal Assistant Relationship Specialty Start Date End Date Maya Goyal MD PCP - General 05/03/04 11/14/22 Maya Goyal MD INACTIVE IN [place] 08/23/2024 PCP - Assigned PCP 10/22/09 11/26/18 No Ref-Primary, Physician PCP - General 11/15/22 Eva Mckenna RN Clinic Planograph Operator Primary Care - CC 02/19/18 Maya Goyal MD Assigned PCP 06/27/12 10/17/23 Mehdi Sen MD [address] [place] [address] Assigned Musculoskeletal Provider 07/16/20 12/18/20 Erlin Delcid MD [address] [facility] [address] [place] [address] Assigned Surgical Provider 09/12/20 Elicia Bedoya, [facility] [address] [place] [address] 812 [place] [address] Pharmacist Pharmacist 11/09/20 12/06/20 Kae Whipple [facility] [address] [place] [address] Pharmacist Pharmacist 11/30/20 12/06/20 Mehdi Bass DPM [address] [facility] [address] [place] [address] Assigned Musculoskeletal Provider 08/14/21 10/27/22 Kae Whipple [facility] [address] [place] [address] Assigned MTM Pharmacist 03/18/22 Maya Goyal MD Assigned Pain Medication Provider 10/02/22 03/23/23 [place] [id number] [address] Assigned Surgical Provider 10/28/[address] [facility] [address] [place] [address] Assigned PCP 10/18/23 12/13/24 documented as of this encounter
--- OUTSIDE RECORDS SUMMARY | 2025-05-20 22:18 | XMS_ITS | Encounter Summary ---
Author Organization [place] Address [address] [place] [address]. [place] [address] Care Team Providers Care Geophysical Operator Name Role Phone Maya Goyal MD Primary Care Provider Unavailabl Maya Stallworth MD Unavailable Unavailable Mehdi Sen MD Unavailable [phone] Erlin Delcid MD Unavailable Elicia Bedoya [facility] Unavailable Kae Whipple [facility] Unavailable Mehdi BassM Unavailable [phone] Kae Whipple [facility] Unavailable Maya Goyal MD Unavailable Unavailable No Ref-Primary, Physician Primary Care Provider Mehdi Bass DPM Unavailable [phone] [facility] Unavailable Reason for Visit * Reason Comments Medication Refill Encounter Details Date Type Department Care Team (Late st Contact Info) Description 03/22/2020 [facility] [address] [place] [address] Maya Goyal MD INACTIVE IN [...] Sex Assigned at Male 09/17/2018 5:00 PM MOVING CONSULTANT Legal Sex Male 3:11 AM MOVING CONSULTANT Gender Identity Male 09/17/2018 5:00 PM MOVING CONSULTANT Sexual Orientation Straight 09/17/2018 5: 00 PM MOVING CONSULTANT COVID-19 Exposure Response Date Recorded In the last month, have you been in contact with someone who was confirmed or suspected to have Coronavirus / COVID-19? No / Unsure 03/12/2020 11:08 AM CDT documented as of this encounter Miscellaneous Notes * Telephone Encounter - Leah Narvaez RPH - 03/23/2020 4:44 PM CDT Prescription approved per [facility] Refill Protocol. documented in [...] COVID-19 08/27/2020 08/27/2020 09/17/2020 11:4 0 PM MOVING CONSULTANT Assessment Noted Time PHQ-9 Depression Total Score: 9 11/19/19 20 7:03 AM MOVING CONSULTANT documented as of this encounter Care Teams Geophysical Operator Relationship Specialty Start Date End Date Maya Goyal MD PCP - General 05/03/04 11/14/22 No Ref-Primary, Physician PCP - General 11/15/22 Maya Goyal MD Assigned PCP 06/27/12 10/17/23 Mehdi Sen MD [address] [place] [address] Assigned Musculoskeletal Provider 07/16/20 12/18/20 Erlin Delcid MD [address] [address] Assigned Surgical Provider 09/12/20 Elicia Bedoya, [facility] [address] [place] [address] 8[address] [place] [address] Pharmacist Pharmacist 11/09/20 12/06/20 Kae Whipple [facility] [address] [place] [address] Pharmacist Pharmacist 11/30/20 12/06/20 Mehdi Bass DPM [address] [place] [address] [place] [address] Assigned Musculoskeletal Provider 08/14/21 10/27/22 Kae Whipple [facility] [address] [place] [address] Assigned MTM Pharmacist 03/18/22 Maya Goyal MD Assigned Pain Medication Provider 10/02/22 03/23/23 Mehdi Bass DPM [address] [place] [address] [address] [place] [address] Assigned Surgical Provider 10/28/22 [facility] [address] [place] [address] Assigned PCP 10/18/23 12/13/24 documented as of this encounter
--- OUTSIDE RECORDS SUMMARY | 2025-05-20 22:18 | XMS_ITS | Encounter Summary ---
Author Organization [facility] Address [address] [place] [address] Care Team Providers Care Rag Room Supervisor Name Role Phone Maya Goyal MD Primary Care Provider UnavailEva Brannon RN Unavailable [phone] Maya Goyal MD Unavailable Unavailable Maya Goyal MD Unavailable Unavailable Mehdi Sen MD Unavailable [phone] Erlin Dlecid MD Unavailable [phone] Elicia Bedoya [facility] Unavailable [phone] Kae Whipple [facility] Unavailable [phone] Mehdi Bass DPM Unavailable [phone] Kae Whipple [facility] Unavailable [phone] Maya Goyal MD Unavailable Unavailable No Ref-Primary, Physician Primary Care Provider Mehdi BassM Unavailable [phone] [facility] Unavailable Encounter Details Date Type Department Care Team (Late st Contact Info) Description 12/13/2010 [facility] [place] [address] [address] [place] [address] [place] [address] Maya Goyal MD INACTIVE IN [place] 08/23/2024 Social History Tobacco Use Types Packs/Day Years Used Date Smoking Tobacco: Former Cigarettes 0.5 20 0 12/01/1990 - 12/01/2010 Smokeless Tobacco: Never Alcohol Use Standard Drinks/Week Comments Yes 0 (1 standard drink = 0.6 oz pur e alcohol) Social once every 3 months Sex and Gender Information Value Date Recorded Sex Assigned at Male 09/17/2018 5:00 PM LIFE SCIENCE RESEARCH ASSISTANT Legal Sex Male 3:11 AM LIFE SCIENCE RESEARCH ASSISTANT Gender Identity Male 09/17/2018 5:00 PM LIFE SCIENCE RESEARCH ASSISTANT Sexual Orientation Straight 09/17/2018 5: 00 PM LIFE SCIENCE RESEARCH ASSISTANT documented as of this encounter Plan of Treatment Not on file documented as of this encounter Visit Diagnoses Not on filedocumented in this encounter Additional Health Concerns Infection Onset Date Last Indicated Resolved Time COVID-19 08/27/2020 08/27/2020 09/17/2020 11:4 0 PM LIFE SCIENCE RESEARCH ASSISTANT documented as of this encounter Care Teams Rag Room Supervisor Relationship Specialty Start Date End Date Maya Goyal MD PCP - General 05/03/04 11/14/22 Maya Goyal MD INACTIVE IN [place] 08/23/2024 PCP - Assigned PCP 10/22/09 11/26/18 No Ref-Primary, Physician PCP - General 11/15/22 Eva Mckenna RN [facility] [employer] Registrar Primary Care - CC 02/19/18 Maya Goyal MD Assigned PCP 06/27/12 10/17/23 Mehdi Sen MD [address] [place], [place] [address] Assigned Musculoskeletal Provider 07/16/20 12/18/20 Erlin Delcid MD [address] [address] Assigned Surgical Provider 09/12/20 Elicia Bedoya, [facility] [address] [place] [address] Pharmacist Pharmacist 11/09/20 12/06/20 Kae Whipple [facility] [address] [place] [address] Pharmacist Pharmacist 11/30/20 12/06/20 Mehdi Bass DPM [address] [place] [address] [address] [place] [address] Assigned Musculoskeletal Provider 08/14/21 10/27/22 Kae Whipple [facility] [address] [place] [address] Assigned MTM Pharmacist 03/18/22 Maya Goyal MD Assigned Pain Medication Provider 10/02/22 03/23/23 Mehdi Bass DPM [id number] [place] [address] [place] [address] Assigned Surgical Provider 10/28/22 [facility] [address] [place] [address] Assigned PCP 10/18/23 12/13/24 documented as of this encounter
--- OUTSIDE RECORDS SUMMARY | 2025-05-20 22:18 | XMS_ITS | Encounter Summary ---
Author Organization [facility] Address [address] [place] [address] Care Team Providers Care Door To Door Fundraising Collector Name Role Phone Maya Goyal MD Primary Care Provider UnavailMaya Vazquez MD Unavailable Unavailable Erlin Delcid MD Unavailable [phone] Mehdi Bass DPM Unavailable [phone] [facility] Unavailable [phone] Maya Goyal MD Unavailable Unavailable No Ref-Primary, Physician Primary Care Provider Mehdi Bass DPM Unavailable [phone] [facility] Unavailable Reason for Visit * Reason Onset Date Comments Patient Inquiry 09/02/2021 Encounter Details Date Type Department Care Team (Late st Contact Info) Description 09/02/2021 [facility] Medical Advice [employer] [address] [address] Mehdi Bass DPM [address] [facility] [address] [place] [address] Patient Inquiry Social History Tobacco [...] Sex Assigned at Male 09/17/2018 5:00 PM PACKAGING CLERK Legal Sex Male 3:11 AM PACKAGING CLERK Gender Identity Male 09/17/2018 5:00 PM PACKAGING CLERK Sexual Orientation Straight 09/17/2018 5: 00 PM PACKAGING CLERK COVID-19 Exposure Response Date Recorded In the last month, have you been in contact with someone who was confirmed or suspected to have Coronavirus / COVID-19? No / Unsure 08/17/2021 12:57 PM PACKAGING CLERK documented as of this encounter Plan of Treatment Not on file documented as of this encounter Visit Diagnoses Not on filedocumented in this encounter Additional Health Concerns Assessment Noted Time PHQ-9 Depression Total Score: 10 021 2:58 PM CDT documented as of this encounter Care Teams Door To Door Fundraising Collector Relationship Specialty Start Date End Date Maya Goyal MD PCP - General 05/03/04 11/14/22 No Ref-Primary, Physician PCP - General 11/15/22 Maya Goyal MD Assigned PCP 06/27/12 10/17/23 Erlin Delcid MD [address] [facility] [address] [place] [address] Assigned Surgical Provider 09/12/20 Mehdi Bass DPM [address] [facility] [address] [place] [address] Assigned Musculoskeletal Provider 08/14/21 10/27/22 Kae Whipple RPH [place] [address] Assigned MTM Pharmacist 03/18/22 Maya Goyal MD Assigned Pain Medication Provider 10/02/22 03/23/23 [place] [address] [facility] [address] [place], [place] [address] Assigned Surgical Provider 10/28/[address] [id number] Assigned PCP 10/18/23 12/13/24 documented as of this encounter
--- OUTSIDE RECORDS SUMMARY | 2025-05-20 22:18 | XMS_ITS | Encounter Summary ---
Author Organization [facility] Address [address] [place] [address]. [place] [address] Care Team Providers Care Wood Last Maker Name Role Phone Maya Goyal MD Primary Care Provider UnavailMaya Vazquez MD Unavailable Unavailable Erlin Delcid MD Unavailable Mehdi Bass DPM Unavailable [phone] Kae Whipple [facility] Unavailable Maya Goyal MD Unavailable Unavailable No Ref-Primary, Physician Primary Care Provider Mehdi Bass DPM Unavailable [phone] [facility] Unavailable Reason for Visit * Reason Comments Medication Refill Encounter Details Date Type Department Care Team (Late st Contact Info) Description 09/25/2021 [facility] [address] [place] [phone] Maya Goyal MD INACTIVE IN [place] 08/23/2024 Medication Refill Social History Tobacco Use [...] Sex Assigned at Male 09/17/2018 5:00 PM HYDRAMATIC SPECIALIST Legal Sex Male 3:11 AM HYDRAMATIC SPECIALIST Gender Identity Male 09/17/2018 5:00 PM HYDRAMATIC SPECIALIST Sexual Orientation Straight 09/17/2018 5: 00 PM HYDRAMATIC SPECIALIST documented as of this encounter Miscellaneous Notes * Telephone Encounter - Rukhsana Yo RN - 09/27/2021 3:57 PM CST Prescription approved per [facility] Refill Protocol. AMATIC SPECIALIST documented in this encounter Plan of Treatment Not on file documented as of this encounter Visit Diagnoses Diagnosis Type 2 diabetes mellitus with stage 1 chronic kidney disease, without long-term current use of insulin (H) documented in this encounter Additional Health Concerns Assessment Noted Time PHQ-9 Depression Total Score: 10 021 2:58 PM CDT documented as of this encounter Care Teams Wood Last Maker Relationship Specialty Start Date End Date Maya Goyal MD PCP - General 05/03/04 11/14/22 No Ref-Primary, Physician PCP - General 11/15/22 Maya Goyal MD Assigned PCP 06/27/12 10/17/23 Erlin Delcid MD [address] [address] Assigned Surgical Provider 09/12/20 [place] [address] [facility] [address] [place] [address] Assigned Musculoskeletal Provider 08/14/21 10/27/22 Kae Whipple [facility] [address] [place] [address] Assigned MTM Pharmacist 03/18/22 Maya Goyal MD Assigned Pain Medication Provider 10/02/22 03/23/23 Mehdi Bass DPM [address] [facility] [address] [place], [place] [address] Assigned Surgical Provider 10/28/[address] [address] Assigned PCP 10/18/23 12/13/24 documented as of this encounter
--- OUTSIDE RECORDS SUMMARY | 2025-05-20 22:18 | XMS_ITS | Encounter Summary ---
Author Organization [facility] Address [address] [place] [address] Care Team Providers Care Literary Agent Name Role Phone Maya Goyal MD Primary Care Provider Unavailabl e None Primary Care Provider Unavailnikole e Eva Mckenna RN Unavailable [phone] Maya Goyal MD Unavailable Unavailable Maya Goyal MD Unavailable Unavailable Mehdi Sen MD Unavailable [phone] Erlin Delcid MD Unavailable [phone] Elicia Bedoya [facility] Unavailable [phone] Kae Whipple [facility] Unavailable [phone] Mehdi BassM Unavailable [phone] Kae Whipple [facility] Unavailable [phone] Maya Goyal MD Unavailable Unavailable No Ref-Primary, Physician Primary Care Provider Mehdi BassM Unavailable [phone] [facility] Unavailable Encounter Details Date Type Department Care Team (Late st Contact Info) Description 12/15/2002 [facility] [address] [facility] [address] [place] [address] Maya Goyal MD INACTIVE IN [place] 08/23/2024 ER ENC (Primary Dx) Social History [...] Sex Assigned at Male 09/17/2018 5:00 PM CARDIOPULMONARY TECHNOLOGIST Legal Sex Male 3:11 AM CARDIOPULMONARY TECHNOLOGIST Gender Identity Male 09/17/2018 5:00 PM CARDIOPULMONARY TECHNOLOGIST Sexual Orientation Straight 09/17/2018 5: 00 PM CARDIOPULMONARY TECHNOLOGIST documented as of this encounter Progress Notes * 12/15/2002 11:59 PM [id number] 00:00 Emergency Department Encounter-[facility] TRACY BYRNE) [Entered: 00:00 Lung Puller ([facility])] : 56 CHIEF COMPLAINT: I was at work and a tow bar dropped on my arm. HISTORY OF PRESENT ILLNESS: Rafa Hickey is a 42-year-old white male who comes to us from [facility] [employer] where he was working out on the [employer]. Apparently his friend pulled the tug away [...] right-handed. SOCIAL HISTORY: The patient has worked [employer] for the last eighteen years. REVIEW OF [...] up and follow-up in two days at [facility] f or clearance for work. He may be able to return to light duty with his left hand. He was given appr opriate work slips to follow-up. DIAGNOSIS: 1) Soft tissue trauma, right wrist with questionable raysa icular fracture, under evaluation. 2) Workman's Comp related. _ TRACY BYRNE MD MT: Document: [id number] Electronically filed by Stella Paul 12/18 11:45 AM documented in this encounter Plan of Treatment Not on file documented as of this encounter Visit Diagnoses Diagnosis ER ENC- Primary documented in this encounter Additional Health Concerns Infection Onset Date Last Indicated Resolved Time COVID-19 08/27/2020 08/27/2020 09/17/2020 11:4 0 PM CARDIOPULMONARY TECHNOLOGIST documented as of this encounter Care Teams Literary Agent Relationship Specialty Start Date End Date Maya Goyal MD PCP - General 05/03/04 11/14/22 None PCP - General 12/01/02 05/02/04 Maya Goyal MD INACTIVE IN [place] 08/23/2024 PCP - Assigned PCP 10/22/09 11/26/18 No Ref-Primary, Physician PCP - General 11/15/22 Eva Mckenna RN Clinic [employer] Primary Care - CC 02/19/18 Maya Goyal MD Assigned PCP 06/27/12 10/17/23 Mehdi Sen MD [address] [place] [address] Assigned Musculoskeletal Provider 07/16/20 12/18/20 Erlin Delcid MD [address] [address] Assigned Surgical Provider 09/12/20 Elicia Bedoya [facility] [address] [place] [address] [place] [place] [address] Pharmacist Pharmacist 11/09/20 12/06/20 Kae Whipple [facility] [address] [place] [address] Pharmacist Pharmacist 11/30/20 12/06/20 Mehdi Bass DPM [id number] [place] [address] [place] [address] Assigned Musculoskeletal Provider 08/14/21 10/27/22 Kae Whipple [facility] [address] [place] [address] Assigned MTM Pharmacist 03/18/22 Maya Goyal MD Assigned Pain Medication Provider 10/02/22 03/23/23 Mehdi Bass DPM [address] [facility] [address] [place] [address] Assigned Surgical Provider 10/28/22 [facility] [place] [address] Assigned PCP 10/18/23 12/13/24 documented as of this encounter
--- OUTSIDE RECORDS SUMMARY | 2025-05-20 22:18 | XMS_ITS | Encounter Summary ---
Author Organization [place] Address [address] [place] [address]. [place] [address] Care Team Providers Care Upholstery Bundler Name Role Phone Maya Goyal MD Primary Care Provider UnavailMaya Vazquez MD Unavailable Unavailable Erlin Delcid MD Unavailable [phone] Mehdi Bass DPM Unavailable [phone] Kae Whipple [facility] Unavailable Maya Goyal MD Unavailable Unavailable No Ref-Primary, Physician Primary Care Provider Mehdi Bass DPM Unavailable [phone] [facility] Unavailable Reason for Visit * Reason Comments Medication Refill Encounter Details Date Type Department Care Team (Late st Contact Info) Description 12/05/2021 [facility] [address] [place] [address] [place] [phone] Maya Goyal MD INACTIVE IN [place] 08/23/2024 Medication Refill Social History Tobacco Use [...] Sex Assigned at Male 09/17/2018 5:[address] JUDGE Legal Sex Male 3:[address] Gender Identity Male 09/17/2018 5:[address] JUDGE Sexual Orientation Straight 09/17/2018 5: [address] JUDGE COVID-19 Exposure Response Date Recorded In the last month, have you been in contact with someone who was confirmed or suspected to have Coronavirus / COVID-19? No / Unsure 11/17/2021 2:[address] JUDGE documented as of this encounter Miscellaneous Notes * Telephone Encounter - Celestino Latham RN - 12/06/2021 6:42 PM CDT Prescription approved per [facility] Refill Protocol. documented in this encounter [...] as of this encounter Care Teams Upholstery Bundler Relationship Specialty Start Date End Date Maya Goyal MD PCP - General 05/03/04 11/14/22 No Ref-Primary, Physician PCP - General 11/15/22 Maya Goyal MD Assigned PCP 06/27/12 10/17/23 Erlin Delcid MD [address] [place] [address] [place] [address] Assigned Surgical Provider 09/12/20 Mehdi Bass DPM [address] [facility] [address] [place] [address] Assigned Musculoskeletal Provider 08/14/21 10/27/22 Kae Whipple [facility] [address] [place] [address] Assigned MTM Pharmacist 03/18/22 Maya Goyal MD Assigned Pain Medication Provider 10/02/22 03/23/23 Meh[place] D[place] [address] [facility] [address] [place] [address] Assigned Surgical Provider 10/28/22 [facility] [address] [place] [address] Assigned PCP 10/18/23 12/13/24 documented as of this encounter
--- OUTSIDE RECORDS SUMMARY | 2025-05-20 22:18 | XMS_ITS | Encounter Summary ---
Author Organization [facility] Address [address] [place] [address] Care Team Providers Care Ela Teacher Name Role Phone Maya Goyal MD Primary Care Provider UnavailEva Brannon RN Unavailable [phone] Maya Goyal MD Unavailable Unavailable Maya Goyal MD Unavailable Unavailable Mehdi Sen MD Unavailable [phone] Erlin Delcid MD Unavailable [phone] Elicia Bedoya [facility] Unavailable [phone] Kae Whipple [facility] Unavailable Mehdi Bass DPM Unavailable [phone] Kae Whipple [facility] Unavailable [phone] Maya Goyal MD Unavailable Unavailable No Ref-Primary, Physician Primary Care Provider Mehdi BassM Unavailable [phone] [facility] Unavailable Encounter Details Date Type Department Care Team (Late st Contact Info) Description 08/26/2006 [facility] Malia Devlin [address] [place] [address] [place] [address] Maya Goyal MD INACTIVE IN [place] 08/23/2024 Social History Tobacco Use Types Packs/Day Years Used Date Smoking Tobacco: Every Day Cigarettes 0.5 20 Alcohol Use Standard Drinks/Week Comments Yes 0 (1 standard drink = 0.6 oz pur e alcohol) Social once every 3 months Sex and Gender Information Value Date Recorded Sex Assigned at Male 09/17/2018 5:00 PM FULL STACK WEB DEVELOPER Legal Sex Male 3:11 AM FULL STACK WEB DEVELOPER Gender Identity Male 09/17/2018 5:00 PM FULL STACK WEB DEVELOPER Sexual Orientation Straight 09/17/2018 5: 00 PM FULL STACK WEB DEVELOPER documented as of this encounter Plan of Treatment Not on file documented as of this encounter Visit Diagnoses Not on filedocumented in this encounter Additional Health Concerns Infection Onset Date Last Indicated Resolved Time COVID-19 08/27/2020 08/27/2020 09/17/2020 11:4 0 PM FULL STACK WEB DEVELOPER documented as of this encounter Care Teams Ela Teacher Relationship Specialty Start Date End Date Maya Goyal MD PCP - General 05/03/04 11/14/22 Maya Goyal MD [place]NACTIVE IN [place] 08/23/2024 PCP - Assigned PCP 10/22/09 11/26/18 No Ref-Primary, Physician PCP - General 11/15/22 Eva Mckenna RN Clinic Steam Shovel Operating Engineer Primary Care - CC 02/19/18 Maya Goyal MD Assigned PCP 06/27/12 10/17/23 Mehdi Sen MD [address] [place], [place] [id number] Assigned Musculoskeletal Provider 07/16/20 12/18/20 Erlin Delcid MD [address] [address] Assigned Surgical Provider 09/12/20 Elicia Bedoya, [facility] [address] [place] [address] 8[address] [place], [place] [id number] Pharmacist Pharmacist 11/09/20 12/06/20 Kae Whipple [facility] [address] [place] [address] Pharmacist Pharmacist 11/30/20 12/06/20 Mehdi Bass DPM [id number] [place] [address] [address] [place] [address] Assigned Musculoskeletal Provider 08/14/21 10/27/22 Kae Whipple [facility] [address] [place] [address] Assigned MTM Pharmacist 03/18/22 Maya Goyal MD Assigned Pain Medication Provider 10/02/22 03/23/23 Mehdi Bass DPM [id number] [place] [address] [place] [address] Assigned Surgical Provider 10/28/22 [facility] [address] [place] [address] Assigned PCP 10/18/23 12/13/24 documented as of this encounter
--- OUTSIDE RECORDS SUMMARY | 2025-05-20 22:18 | XMS_ITS | Encounter Summary ---
Author Organization [facility] Address [address] [place] [address] Care Team Providers Care Slab Tripper Name Role Phone Maya Goyal MD Primary Care Provider UnavailEva Brannon RN Unavailable [phone] Maya Goyal MD Unavailable Unavailable Maya Goyal MD Unavailable Unavailable Mehdi Sen MD Unavailable [phone] Erlin Delcid MD Unavailable [phone] Elicia Bedoya [facility] Unavailable [phone] Kae Whipple [facility] Unavailable Mehdi Bass DPM Unavailable [phone] Kae Whipple [facility] Unavailable [phone] Maya Goyal MD Unavailable Unavailable No Ref-Primary, Physician Primary Care Provider Mehdi BassM Unavailable [phone] [facility] Unavailable Encounter Details Date Type Department Care Team (Latest Contact Info) Description 08/29/2010 [facility] Malia [facility] [address] [place] [address] Maya Goyal MD INACTIVE IN [place] 08/23/2024 BENIGN HYPERTENSION (Primary Dx) Social History Tobacco Use Types Packs/Day Years Used Date Smoking Tobacco: Every Day Cigarettes 0.5 20 Alcohol Use Standard Drinks/Week Comments Yes 0 (1 standard drink = 0.6 oz pur e alcohol) Social once every 3 months Sex and Gender Information Value Date Recorded Sex Assigned at Male 09/17/2018 5:00 PM MANAGEMENT INFORMATION SYSTEMS DIRECTOR Legal Sex Male 3:11 AM MANAGEMENT INFORMATION SYSTEMS DIRECTOR Gender Identity Male 09/17/2018 5:00 PM MANAGEMENT INFORMATION SYSTEMS DIRECTOR Sexual Orientation Straight 09/17/2018 5: 00 PM MANAGEMENT INFORMATION SYSTEMS DIRECTOR documented as of this encounter Plan of Treatment Not on file documented as of this encounter Visit Diagnoses Diagnosis BENIGN HYPERTENSION- Primary Essential hypertension, benign documented in this encounter Additional Health Concerns Infection Onset Date Last Indicated Resolved Time COVID-19 08/27/2020 08/27/2020 09/17/2020 11:4 0 PM MANAGEMENT INFORMATION SYSTEMS DIRECTOR documented as of this encounter Care Teams Slab Tripper Relationship Specialty Start Date End Date Maya Goyal MD PCP - General 05/03/04 11/14/22 Maya Goyal MD INACTIVE IN [place] 08/23/2024 PCP - Assigned PCP 10/22/09 11/26/18 No Ref-Primary, Physician PCP - General 11/15/22 Eva Mckenna RN Clinic Transit Department Clerk Primary Care - CC 02/19/18 Maya Goyal MD Assigned PCP 06/27/12 10/17/23 Mehdi Sen MD 9 [place] [address] Assigned Musculoskeletal Provider 07/16/20 12/18/20 Erlin Delcid MD [address] [address] Assigned Surgical Provider 09/12/20 Elicia Bedoya, [facility] [address] [place] [address] 812 [place] [address] Pharmacist Pharmacist 11/09/20 12/06/20 Kae Whipple [facility] [address] [place] [address] Pharmacist Pharmacist 11/30/20 12/06/20 Mehdi Bass DPM [address] [place] [address] [address] [place] [address] Assigned Musculoskeletal Provider 08/14/21 10/27/22 Kae Whipple [facility] [address] [place] [address] Assigned MTM Pharmacist 03/18/22 Maya Goyal MD Assigned Pain Medication Provider 10/02/22 03/23/23 Mehdi Bass DPM [address] [place] [address] [place] [address] Assigned Surgical Provider 10/28/22 [facility] [address] [place] [address] Assigned PCP 10/18/23 12/13/24 documented as of this encounter
--- OUTSIDE RECORDS SUMMARY | 2025-05-20 22:18 | XMS_ITS | Encounter Summary ---
Author Organization [facility] Address [address] [place] [address]. [place] [address] Care Team Providers Care Grid Inspector Name Role Phone Maya Goyal MD Primary Care Provider UnavailMaya Vazquez MD Unavailable Unavailable Erlin Delcid MD Unavailable [phone] Mehdi Bass DPM Unavailable [phone] Kae Whipple [facility] Unavailable Maya Goyal MD Unavailable Unavailable No Ref-Primary, Physician Primary Care Provider Mehdi Bass DPM Unavailable [phone] [facility] Unavailable Reason for Visit * Reason Onset Date Comments Orders 09/04/2021 Encounter Details Date Type Department Care Team (Late st Contact Info) Description 09/04/2021 [facility] [address] [place] [address] Maya Goyal MD INACTIVE IN [place] 08/23/2024 Orders Social History Tobacco Use Types [...] Sex Assigned at Male 09/17/2018 5:00 PM APPLICATOR SPRAYER Legal Sex Male 3:11 AM APPLICATOR SPRAYER Gender Identity Male 09/17/2018 5:00 PM APPLICATOR SPRAYER Sexual Orientation Straight 09/17/2018 5: 00 PM APPLICATOR SPRAYER COVID-19 Exposure Response Date Recorded In the last month, have you been in contact with someone who was confirmed or suspected to have Coronavirus / COVID-19? No / Unsure 08/17/2021 12:57 PM APPLICATOR SPRAYER documented as of this encounter Miscellaneous Notes * Telephone Encounter - Rukhsana Bowden RN - 09/06/2021 10:08 AM APPLICATOR SPRAYER Sent echoecho message. ICATOR SPRAYER documented in this encounter Plan of Treatment Not on file documented as of this encounter Visit Diagnoses Not on filedocumented in this encounter Additional Health Concerns Assessment Noted Time PHQ-9 Depression Total Score: 10 021 2:58 PM CDT documented as of this encounter Care Teams Grid Inspector Relationship Specialty Start Date End Date Maya Goyal MD PCP - General 05/03/04 11/14/22 No Ref-Primary, Physician PCP - General 11/15/22 Maya Goyal MD Assigned PCP 06/27/12 10/17/23 Erlin Delcid MD [address] [address] Assigned Surgical Provider 09/12/20 [place] [address] [facility] [address] [place] [address] Assigned Musculoskeletal Provider 08/14/21 10/27/22 Kae Whipple [facility] [address] [place] [address] Assigned MTM Pharmacist 03/18/22 Maya Goyal MD Assigned Pain Medication Provider 10/02/22 03/23/23 Mehdi [place] [address] [facility] [address] [place] [address] Assigned Surgical Provider 10/28/22 [facility] [address] [place] [address] Assigned PCP 10/18/23 12/13/24 documented as of this encounter
--- OUTSIDE RECORDS SUMMARY | 2025-05-20 22:18 | XMS_ITS | Encounter Summary ---
Author Organization [facility] Address [address] [place] [address] Care Team Providers Care Pediatric Oncologist Name Role Phone Maya Goyal MD Primary Care Provider Unavailabl Maya Stallworth MD Unavailable Unavailable Mehdi Sen MD Unavailable [phone] Erlin Delcid MD Unavailable Elicia Bedoya [facility] Unavailable Kae Whipple [facility] Unavailable Mehdi BassM Unavailable [phone] Kae Whipple [facility] Unavailable [phone] Maya Goyal MD Unavailable Unavailable No Ref-Primary, Physician Primary Care Provider Mehdi Bass DPM Unavailable [phone] [facility] Unavailable Reason for Visit * Reason Onset Date Comments MyChart Communication 09/29/2020 Encounter Details Date Type Department Care Team (Latest Contact Info) Description 09/29/2020 [facility] [address] [place] [address] Maya Goyal MD INACTIVE IN [place] 08/23/2024 MyChart Communication Social History Tobacco Use [...] Sex Assigned at Male 09/17/2018 5:00 PM WOMEN'S GARMENT FITTER Legal Sex Male 3:11 AM WOMEN'S GARMENT FITTER Gender Identity Male 09/17/2018 5:00 PM WOMEN'S GARMENT FITTER Sexual Orientation Straight 09/17/2018 5: 00 PM WOMEN'S GARMENT FITTER COVID-19 Exposure Response Date Recorded In the last month, have you been in contact with someone who was confirmed or suspected to have Coronavirus / COVID-19? Yes 09/07/2020 1:45 PM WOMEN'S GARMENT FITTER documented as of this encounter Miscellaneous Notes * Telephone Encounter - Rukhsana Yo RN - 09/29/2020 12:06 PM CST My chart message sent by patient. My chart message sent to patient. N'S GARMENT FITTER * Telephone Encounter - Rukhsana oY RN - 09/29/2020 11:34 AM CST My chart message sent by patient. My chart message sent to patient. N'S GARMENT FITTER documented in this encounter Plan of Treatment Not on file documented as of this encounter Visit Diagnoses Not on filedocumented in this encounter Additional Health Concerns Assessment Noted Time PHQ-9 Depression Total Score: 10 020 8:55 AM CDT documented as of this encounter Care Teams Pediatric Oncologist Relationship Specialty Start Date End Date Maya Goyal MD PCP - General 05/03/04 11/14/22 No Ref-Primary, Physician PCP - General 11/15/22 Maya Goyal MD Assigned PCP 06/27/12 10/17/23 Mehdi Sen MD [address] [place] [address] [place] [address] Assigned Musculoskeletal Provider 07/16/20 12/18/20 Erlin Delcid MD [address] [facility] [address] [place] [address] Assigned Surgical Provider 09/12/20 Elicia Bedoya, [facility] [address] [place] [address] 812 [place] [address] Pharmacist Pharmacist 11/09/20 12/06/20 Kae Whipple [facility] [address] [place] [address] Pharmacist Pharmacist 11/30/20 12/06/20 Mehdi Bass DPM [id number] [place] [address] [place] [address] Assigned Musculoskeletal Provider 08/14/21 10/27/22 Kae Whipple [facility] [address] [place] [address] Assigned MTM Pharmacist 03/18/22 Maya Goyal MD Assigned Pain Medication Provider 10/02/22 03/23/23 [place] [address] [facility] [address] [place] [address] Assigned Surgical Provider 10/28/22 [facility] [address] [place] [address] Assigned PCP 10/18/23 documented as of this encounter
--- NOTE | 2025-05-20 22:43 | CRLHL7_ITS ---
For Patients: As a result of the Century Cures Act, medical imaging exams and procedure reports are released immediately into your electronic medical record. You may view this report before your referring provider. If you have questions, please contact your health care provider. INDICATION: Syncope, head injury from fall TECHNIQUE: CT Head without i.v. contrast. Coronal and sagittal reformats were obtained. COMPARISON: None FINDINGS: The sensitivity and specificity of the exam are moderately limited by artifacts from patient motion. CSF space: Unremarkable for age. Brain: No evidence of mass, acute infarction or hemorrhage is seen. No mass-effect or midline shift is seen. Mild diffuse cortical atrophy is noted. The brain parenchyma is otherwise normal in appearance with preservation of the paulino-white matter junction. Calvarium: The visualized paranasal sinuses are well aerated. The mastoid air cells are clear. The visualized orbits are grossly unremarkable. The calvarium is unremarkable in appearance with no fractures identified. IMPRESSION: 1. No evidence of acute infarction, intracranial hemorrhage, or mass-effect seen. 2. The sensitivity and specificity of the exam are moderately limited by artifacts from patient motion. Please note that all CT scans at this facility use dose modulation, iterative reconstruction, and/or weight-based dosing when appropriate to reduce radiation dose to as low as reasonably achievable. Dictated by: Vincent Lanza MD @ 05/20/2025 23:41:32 (Electronically Signed)
--- NOTE | 2025-05-20 22:43 | CRLHL7_ITS ---
For Patients: As a result of the Cures Act, medical imaging exams and procedure reports are released immediately into your electronic medical record. You may view this report before your referring provider. If you have questions, please contact your health care provider. Indication: Trauma. Technique: Right knee, 3 views. Comparison: None. Findings/Impression: Bones: Alignment is normal. No displaced fractures or bone lesions. 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 Large joint effusion. Soft tissues: Vascular calcifications. Dictated by Dhaval Ventura MD @ 05/20/2025 11:28:55 PM (Electronically Signed)
--- NOTE | 2025-05-20 22:49 | CRLHL7_ITS ---
For Patients: As a result of the Century Cures Act, medical imaging exams and procedure reports are released immediately into your electronic medical record. You may view this report before your referring provider. If you have questions, please contact your health care provider. INDICATION: Syncope, hypoxia. TECHNIQUE: CT chest PE was acquired with 100 cc Omnipaque 350 IV contrast. COMPARISON: None. FINDINGS: Heart and vasculature: Contrast opacification of the pulmonary arterial tree is adequate. No sign of pulmonary embolism. Heart size is normal. Thoracic aorta and pulmonary artery are normal in caliber. Coronary artery and thoracic aorta atherosclerotic calcification. Heavy mitral annulus calcification. Lungs and pleura: No suspicious nodules or infiltrates. Calcified granuloma in the right lower lobe superior segment. Thin band of scarring versus atelectasis within the lingula. No acute consolidation. No suspicious nodule. No pleural effusions, pleural thickening, or pneumothorax. Lymph nodes/mediastinum: No mediastinal, hilar, or axillary adenopathy. Chest wall: No masses. Upper abdomen: No acute or significant findings. Bones: Multiple old right-sided rib fractures. Age-indeterminate mild L1 compression fracture. IMPRESSION: 1. No pulmonary embolism. No acute findings in the chest. 2. Age-indeterminate mild L1 compression fracture. 3. Old, incompletely healed, superior sternal fracture Please note that all CT scans at this facility use dose modulation, iterative reconstruction, and/or weight-based dosing when appropriate to reduce radiation dose to as low as reasonably achievable. Dictated by Mehdi Paul MD @ 05/20/2025 11:51:24 PM (Electronically Signed)
[2025-05-20 22:51] LABS: Hematocrit 41.1 % (37.0-53.0); Hemoglobin* 13.8 gm/dL (13.5-17.5); Immature Granulocytes Pct Auto 1.3 %; Mean Corpuscular HGB Conc 34 gm/dL (32-36); Mean Corpuscular Hemoglobin 33 pg (26-34); Mean Corpuscular Volume 97 fL (80-100); RDW Coefficient of Variation % 15.3 % (11.5-15.5); Red Blood Count 4.25 m/uL (4.30-5.90); White Blood Count* 20.84 K/uL (4.50-11.00)
[2025-05-20 22:52] LABS: Chloride* 91 mmol/L (96-114); Sodium* 132 mmol/L (135-149)
[2025-05-20 22:53] LABS: Potassium* 4.2 mmol/L (3.6-5.1)
[2025-05-20 22:55] LABS: Anion Gap 9 mEq/L (7-15); Blood Urea Nitrogen* 28 mg/dL (7-30); Carbon Dioxide* 32 mmol/L (20-32); Creatinine* 1.3 mg/dL (0.5-1.5); Est. Creatinine Clearance* 64.99; Estimated Glomerular Filt Rate 61 ml/min; Immature Granulocytes Abs Auto 0.30 K/uL (0.00-0.30); Lactate* 2.0 mmol/L (0.5-1.9); Lymphocytes Absolute Auto 1.00 K/uL (0.90-2.90); Slide Review Reflex No
[2025-05-20 22:56] LABS: Calcium* 9.0 mg/dL (8.4-10.6); Glucose* 112 mg/dL (60-115)
[2025-05-20 22:57] LABS: Ethanol* < 0.01 % (0.01-0.03)
[2025-05-20 23:13] LABS: D Dimer Quantitative* 8.82 ug/ml (0.00-0.50)
[2025-05-20] MEDS: PIPERACILLIN/TAZOBACTAM 3.375 GM in 0.9 % SODIUM CHLORIDE Mini-bag 100 ML IVPB (23:33)
[2025-05-20] MEDS: MAGNESIUM IV 2 GM/50 ML PIGGYBACK IVPB (23:34)
[2025-05-21] VITALS (14 sets, daily range): BP systolic 96–130; BP diastolic 43–75; PULSE 74–86; RESP 16–20; TEMP 36.7–37.1; O2SAT 88–96
[2025-05-21] MEDS: VANCOMYCIN 2 GM/400 ML 2 GM/400 ML PIGGYBACK IVPB (00:06)
[2025-05-21 00:09] LABS: Troponin, Point-of-Care* 0.00 ng/ml (0.01-0.04)
[2025-05-21] MEDS: PIPERACILLIN/TAZOBACTAM 3.375 GM in 0.9 % SODIUM CHLORIDE Mini-bag 100 ML IVPB ×2 (04:56→11:03)
[2025-05-21 07:56] LABS: Appearance Urine Clear (Clear)
[2025-05-21] MEDS: ACETAMINOPHEN 500 MG TABLET 1000 MG PO ×2 (08:52→14:39)
[2025-05-21] MEDS: 0.9 % SODIUM CH + KCL 20 mEq/L 1,000 ML 125 ML IV (09:11)
[2025-05-21] MEDS: GABAPENTIN 300 MG CAPSULE PO ×2 (09:33→13:46)
--- NOTE | 2025-05-21 14:45 | ED.NURSE ---
Report given to Thomas at [facility]. Patient will be going to H [id number]. Patient aware. Pain controlled with PO meds. NPO. Dressings intact. All belongings sent with patient. Patient updated his Stella and had no further questions. Fluids were stopped and okay to give 500cc bolus in rig if needed.
--- NOTE | 2025-05-21 15:21 | PC.NURSE ---
Patient transferred to [facility] [id number]. All belongings sent with patient. Report given to EMS
== END 2025-05-21 15:22 | disposition short-term general hospital (02) ==
PROVIDERS: Emergency Provider Family Medicine; PCP Family Medicine
DX: T81.44XA Sepsis following a procedure, initial encounter (principal); A41.9 Sepsis, unspecified organism; L03.115 Cellulitis of right lower limb; Z96.651 Presence of right artificial knee joint
CPT/HCPCS: 36415; 70450; 71275; 73562; 80048; 81001; 82077; 82962; 83605; 83735; 84484; 85025; 85379; 87040; 87086; 87186; 87800; 93005; 94761; 96365; 96367; 96368; 96375; 99285; A9270; J2543; J3375; J3475; J7030; Q9967

== ENCOUNTER 2025-05-21 15:02 | Outpatient (CLI) | payer MEDICARE, SELFPAY | END 2025-05-21 15:03 | disposition home or self-care (01) | LOC: AMB 05-28 10:53 | PROVIDERS: PCP Family Medicine; Visit Provider Family Medicine | DX: L03.115 Cellulitis of right lower limb (principal); A41.9 Sepsis, unspecified organism; T81.49XA Infection following a procedure, other surgical site, initial encounter | CPT/HCPCS: A0425; A0427 ==

== ENCOUNTER 2025-06-28 14:42 | Emergency (ER) | payer MEDICARE, SELFPAY ==
--- OUTSIDE RECORDS SUMMARY | 2023-04-30 10:15 | XMS_ITS | Continuity of Care Document ---
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 Name Role Phone Emelina Silva Unavailable Unavailable Allergies, Adverse Reactions, Alerts Substance Reaction Status Criticality No Known Allergies Active No Inform ation Medications Medication Instructions Dosage Effective Dates (start - stop) Status Comments lisinopril 10 mg-hydrochlorothiazid e 12.5 mg tablet take 1 tablet by oral route every day 1.00 tablet - Active carvedilol 25 mg tablet take 2 tablet by oral route 2 times every day with food 50 MG - Active methocarbamol 750 mg tablet take 1 tablet by oral route 2 times every day 750 MG - Active metformin 500 mg tablet take 2 tablet by oral route 2 times every day with morning and evening meals 1000 MG - Active furosemide 20 mg tablet take 1 tablet by oral route every day 20 MG - Active tamsulosin 0.4 mg capsule take 1 capsule by oral route every day 1/2 hour following the same meal each day 0.4 MG - Active amlodipine 10 mg tablet take 1 tablet by oral route every day 10 MG - Active finasteride 5 mg tablet take 1 tablet by oral route every day 5 MG - Active omeprazole 20 mg tablet,delayed release take 1 by oral route every day 1 - Active gabapentin 100 mg capsule take 2 capsule by oral route 3 times every evening 200 MG - Active meloxicam 7.5 mg tablet take 1 tablet by oral route every day - Active tizanidine 4 mg tablet take 1 tablet by oral route every day 4 MG - Active amitriptyline 10 mg tablet take 2 tablet by oral route every day at bedtime 20 MG - Active oxycodone 5 mg tablet take 1 tablet by oral route every 8-10 hours as needed (maximum 3x a day) - Active Procedures Procedure Date Offic/outpt E[place] [facility] [place] Colonoscopy Flex; W/remov Les- 14 Colonoscopy Flex; W/bx 1/mx Advance Directives Directive Yes / No Effective Date File Name No Information Encounters Encounter Description Practice Location Reason(s) For Visit Diagnoses Date Provider Providers Copied on Encounter Offic/outpt E&m [facility], [address] [address], [place], [place], [id number], [place] tel:[phone] [facility] GI Symptoms or Concerns (chief complaint) Diaphoresis 3 Shanna Tarango. [address] [facility], [address], [id number] , [place]. [phone] Referring Provider: Referral Self, USE FOR SELF REFERRALS. [facility], [address] [address], [place], [place], [address], [place] tel:[phone] [facility] No Information 3 Fidel Dowd. [address] [facility], [facility] [address], [place], [place], [id number] , [place]. [phone] [facility], [address] [address], [place], [place], [id number], [place] tel:[phone] [facility] External Referral 4 Andrew Mckenzie. [address] [facility], [facility] [address], [place], [place], [address] , [place]. [phone] [facility], [address] [address], [place], [place], [address], [place] tel:[phone] [facility] No Information Andrew Mckenzie. [address] [facility], [address], [place], [place], [address] , [place]. [phone] Referring Provider: Maya Goyal MD E, [address] [facility] [address], [place], [address]. tel:[phone] Family History Family Member Type Diagnosis Age At Onset Sister Problem Cancer, breast Mother Problem (finding) Cancer, lung Sister Problem (finding) Cancer, unknown Immunizations Vaccine Date Status Comments zoster vaccine recombinant administered N ote: [facility] bi-directional interface ; Source: Other Registry zoster vaccine recombinant administered N ote: [facility] bi-directional interface ; Source: Other Registry tetanus toxoid, reduced diphtheria toxoid, and acellular pertussis vaccine, adsorbed administered Note: [facility] bi-direct ional interface ; Source: Other Registry Twinrix administered Note: [facility] bi-d irectional interface ; Source: Other Registry Twinrix administered Note: [facility] bi-d irectional interface ; Source: Other Registry Twinrix administered Note: [facility] bi-d irectional interface ; Source: Other Registry tetanus toxoid, reduced diphtheria toxoid, and acellular pertussis vaccine, adsorbed administered Note: [facility] bi-direct ional interface ; Source: Other Registry Payers Payer name Insurance type Covered republican ID Authoriza tion(s) [employer] Gold Choice 16 [id number] Social History Type Description Quantity Date Captured Comments Alcohol Use Details Caffeine Use Details Unknown Tobacco Use Status undefined Smoking Status Former smoker Non-Smoking Tobacco Use Details : No Details Available : No Details Available Sex Male Vital Signs Date / Time: Height Weight BMI Pulse Rate Blood Pressure Temperature Respiratory Rate Body Surface Area Head Circumference Head Circ. Percentile Wt./Ravindra. Percentile BMI percentile Pulse Ox Inhaled Ox 2:08 PM 74.00 in 144.968 kg (319.60 lbs) 41.0 3 kg/m eter (2) 88 /min 121/83 mm[Hg] Chief Complaint And Reason For Visit From encounter dated '04/30/2023 15:15'. GI Symptoms or Concerns (chief complaint). Description: This patient is a 62-year-old female who presents as a self-referral for evaluation of postprandial diaphoresis. He is accompanied by his .For the past several months the patient has been experiencing hot flashes and diaphoresis after eati ng. This occurs after every meal, is not related to any specific food triggers. It does improve if he eats less. There is history of heartburn and reflux, but this is generally well controlled with omeprazole 20 milligrams daily. Patient denies nausea, vomiting, diarrhea, abdominal pain, appetite loss, or unintentional weight loss. There is chronic constipation which is related to oxycodone. Patient has not had any prior testing for this symptom. He does have insulin-dependent type 2 diabetes and is currently on long-acting insulin in the morning. Recently he added short-acting insulin for lunch and dinner, but this was after onset of above symptoms. Hypoglycemia episodes are rare, and per his PCP notes it appears that he has checked his blood sugar after meals and they have been elevated. There has been some difficulty getting his disease under control. Medical history also includes hypertension, neuropathy, arthritis, and anxiety. Patient has chronic leg and back pain related to a prior accident. No prior endoscopy. Last had colonoscopy in 2013 with several polyps, 3 year recall was recommended. Reason For Referral Reason For Referral No Information History Of Present Illness Encounter Date Complaint History Of Prese nt Illness GI Symptoms or Concerns This pat ient is a 62-year-old female who presents as a self-referral for evaluation of postprandial diaphoresis. He is accompanied by his . For the past several months the patient has been experiencing hot flashes and diaphoresis after eating. This occurs after every meal, is not related to any specific food triggers. It does improve if he eats less. There is history of heartburn and reflux, but this is generally well controlled with omeprazole 20 milligrams daily. Patient denies nausea, vomiting, diarrhea, abdominal pain, appetite loss, or unintentional weight loss. There is chronic constipation which is related to oxycodone. Patient has not had any prior testing for this symptom. He does have insulin-dependent type 2 diabetes and is currently on long-acting insulin in the morning. Recently he added short-acting insulin for lunch and dinner, but this was after onset of above symptoms. Hypoglycemia episodes are rare, and per his PCP notes it appears that he has checked his blood sugar after meals and they have been elevated. There has been some difficulty getting his disease under control. Medical history also includes hypertension, neuropathy, arthritis, and anxiety. Patient has chronic leg and back pain related to a prior accident. No prior endoscopy. Last had colonoscopy in 2013 with several polyps, 3 year recall was recommended. Functional Status Date Functional Assessmen t No Information Instructions Date Instruction Additional Infor mation No Information Assessments Type Assessment Date assessment Diaphoresis impression This patient present s for evaluation of postprandial diaphoresis that has been occurring for the past few months. This symptom on its own is not specific for any underlying condition. Patient has GERD but feels this is well controlled on PPI. There is no profuse diarrhea which would suggest underlying secretory diarrhea / NET. It seems based on his glucose checks that his insulin dosing is appropriate and symptoms are not related to hypoglycemia. Reviewed with patient that no further testing is needed at this time. Patient in agreement and will follow up as needed with any change in GI symptoms. Patient Care Teams Name Effective Dates (start - stop) Status Members No Information
--- OUTSIDE RECORDS SUMMARY | 2023-04-30 10:15 | XMS_ITS | Continuity of Care Document ---
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 Name Role Phone Emelina Silva Unavailable Unavailable [...] Active Procedures Procedure Date Offic/outpt E&m [facility] Sever 3 Colonoscopy Flex; W/remov Les- 14 Colonoscopy Flex; W/bx 1/mx Advance Directives Directive Yes / No Effective Date File Name No Information Encounters Encounter Description Practice Location Reason(s) For Visit Diagnoses Date Provider Providers Copied on Encounter Offic/outpt E&m [facility], [address] [address], [place], [place], [id number], [place] tel:[phone] [facility] GI Symptoms or Concerns (chief complaint) Diaphoresis 3 Shanna Tarango. [address] [facility], [address], [id number] , [place]. [phone] Referring Provider: Referral Self, USE FOR SELF REFERRALS. [facility], [address] [address], [place], [place], [address], [place] tel:[phone] [facility] No Information 3 Fidel Dowd. [address] [facility], [facility] [address], [place], [place], [id number] , [place]. [phone] [facility], [address] [address], [place], [place], [address], [place] tel:[phone] [facility] External Referral 4 Andrew Mckenzie. [address] [facility], [facility] [address], [place], [place], [id number] , [place]. [phone] [facility], [address] [address], [place], [place], [address], [place] tel:[phone] [facility] No Information Andrew Mckenzie. [address] [facility], [address], [place], [place], [address] , [place]. [phone] Referring Provider: Maya Goyal MD E, [address] [facility] [address], [place], [address]. tel:[phone] Family History Family Member Type Diagnosis Age [...] Registry Payers Payer name Insurance type Covered green party ID Authoriza tion(s) [employer] Gold Choice 16 [id number] Social History Type Description Quantity Date Captured [...]
--- OUTSIDE RECORDS SUMMARY | 2025-05-18 07:30 | XMS_ITS ---
Author Organization [facility] Address [address] [place] [address] [address] [place] [address] Care Team Providers Care Consultant Rn Name Role Phone Caryl Shi Primary Care Provider UnavailKarlo Wilkins Unavailable [phone] Catia Swift MD Unavailable Unavailable Michael Suárez Unavailable [phone] Allergies No Known Allergies REASON FOR VISIT [...] Duration: 30 days Active UltiCare Short Pen [place] 31G X 8 MM DIRECTED; Duration: 30 [...] Diagnosis [address] [facility] [address] [facility] [address] [place] [address] 05/18/2025 Michael Suárez Unilateral primary osteoarthritis, right [...] bilateral knee pain. I have reviewed the [facility] database and did not find any [...] documentation has been reviewed by the aforementioned SEXUAL ASSAULT COUNSELOR prior to being entered into the official [...] bilateral knee pain. I have reviewed the [facility] database and did not find any [...] any questions, problems or concerns. Other I, Fowsiya Winston, a m serving as a scribe to document services personally performed by Michael Suárez NP, based upon my observations and the provider's statements to me. All documentation has been reviewed by the aforementioned SEXUAL ASSAULT COUNSELOR prior to being entered into the official [...] 2 Months, Reason: Provider Name:Michael Suárez , 07/21/2025 12:45:00 PM, [address] [facility], [address], [place], [address], Progress Notes * ROB Rafa Collado JrDOB: [birth year] (64 yo M)Acc No.[id number]:05/18/2025 Progress Notes Patient: Yamileth SANDHU Rafa Collado Provider: Gordon Suárez NP :1960 A ge:64 Y S ex:Male Date:05/18/2025 Phone: Address:[address] [place] [address], [place], [id number] Pcp:Caryl Shi Subjective: * Chief Complaints: * [...] Procedure History: Several lumbar injections at [facility] have not been helpful. He also completed cervical injections at [facility]. Genicular RFAs have been completed in the past without relief - 01/01/2024 Lumbar injection ([facility]): good relief - 11/21/2022 L5-S1 FANTASMA: 60-70% relief - 12/07/2022 bilateral knee injections (no relief) - 04/13/2023 Right knee injection: 60% relief, spiked blood pressure Previous Consults: Srinath Curiel MD of [facility] for knee treatment. Dr. Hoff (Surgeon) discussed SCS vs. L5-S1 RFA Previous Therapy: He completed knee therapy in 2019 without benefit. He has also completed therapy at [facility]. Current Pain Medications: Oxycodone 5mg [...] W ork Status: Keisha roque of Employment: [employer]. 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 Employment Status: not working. * Medications: T akingtiZANidine HCl 4 MG Tablet 1 tablet as needed Orally once a day at bedtime Meloxicam 7.5 MG Tablet 1 tablet Orally Once a day Methocarbamol 750 MG Tablet 1 tablet Orally(muscle relaxant for daytime use, Do not take with Tizanidine- only take 1 tablet at a time) Twice a day UltiCare Short Pen [place] 31G X 8 MM Miscellaneous DIRECTED Lantus [...] Twice a day Taking UltiCare Short Pen [place] 31G X 8 MM Miscellaneous DIRECTED Taking [...] Plan: * Treatment: 2. O thers Notes: Italo Hoover, am serving as a scribe to document services personally performed by Michael Suárez NP, based upon my observations and the provider's statements to me. All documentation has been reviewed by the aforementioned SEXUAL ASSAULT COUNSELOR prior to being entered into the official [...] 0,?OSCAR Interpretation 6 0-79 (Crippled). Counseling: B [place] Care goal follow-up plan: A rodger Normal BMI Follow-up L ifestyle education regarding diet Patient declined. * Follow Up: 2 Months * Billing Information: * Visit Code: [id number] Established Patient level 3. * Procedure Codes: * Sign off status: Completed true * Provider: Gordon Suárez NP Date: 0 05/18/2025 Generated for Printi diamond/Mona/Rigoransmitting on: 1 02:46 PM CDT History and Physical Notes * HPI (History of Present Illness) Category Sub-Category Detail Notes Category Not es Clinic visit Rafa (Vinod) is a 64-year-old male who returns to [...] Procedure History: Several lumbar injections at [facility] have not been helpful. He also completed cervical injections at [facility]. Genicular RFAs have been completed in the past without relief - 01/01/2024 Lumbar injection ([facility]): good relief - 11/21/2022 L5-S1 FANTASMA: 60-70% relief - 12/07/2022 bilateral knee injections (no relief) - 04/13/2023 Right knee injection: 60% relief, spiked blood pressure Previous Consults: Srinath Curiel MD of [facility] for knee treatment. Dr. Hoff (Surgeon) discussed SCS vs. L5-S1 RFA Previous Therapy: He completed knee therapy in 2019 without benefit. He has also completed therapy at [facility]. Current Pain Medications: Oxycodone 5mg [...]
--- OUTSIDE RECORDS SUMMARY | 2025-06-28 14:46 | XMS_ITS | Encounter Summary ---
Author Organization [facility] Address [address] [place] [address]. [place] [address] Care Team Providers Care Order Dispatcher Name Role Phone Maya Goyal MD Primary Care Provider Unavailabl Maya Stallworth MD Unavailable Unavailable Mehdi Sen MD Unavailable [phone] Erlin Delcid MD Unavailable [phone] Elicia Bedoya [facility] Unavailable Kae Whipple [facility] Unavailable Mehdi Bass DPM Unavailable [phone] Kae Whipple [facility] Unavailable [phone] Maya Goyal MD Unavailable Unavailable No Ref-Primary, Physician Primary Care Provider Mehdi Bass DPM Unavailable [phone] [facility] Unavailable Encounter Details Date Type Department Care Team (Late st Contact Info) Description 11/01/2020 [facility] [address] [place] [address] Erlin Delcid MD [address] [facility] [address] [place], [place] [address] Social History Tobacco Use Types Packs/Day Years [...] Assigned at Male 09/17/2018 5:00 PM MEDICAL PLANNER Legal Sex Male 3:11 AM MEDICAL PLANNER Gender Identity Male 09/17/2018 5:00 PM MEDICAL PLANNER Sexual Orientation Straight 09/17/2018 5: 00 PM MEDICAL PLANNER COVID-19 Exposure Response Date Recorded In the last month, have you been in contact with someone who was confirmed or suspected to have Coronavirus / COVID-19? No / Unsure 11/04/2020 1:14 PM MEDICAL PLANNER documented as of this encounter Plan of Treatment Not on file documented as of this encounter Visit Diagnoses Not on filedocumented in this encounter Additional Health Concerns Assessment Noted Time PHQ-9 Depression Total Score: 10 020 8:55 AM CDT documented as of this encounter Care Teams Order Dispatcher Relationship Specialty Start Date End Date Maya Goyal MD PCP - General 05/03/04 11/14/22 No Ref-Primary, Physician PCP - General 11/15/22 Maya Goyal MD Assigned PCP 06/27/12 10/17/23 Mehdi Sen MD [address] [place], [place] [address] Assigned Musculoskeletal Provider 07/16/20 12/18/20 Erlin Delcid MD [address] [facility] [address] [address] Assigned Surgical Provider 09/12/20 Elicia Bedoya, [facility] [address] [place] [address] 812 [place] [address] Pharmacist Pharmacist 11/09/20 12/06/20 Kae Whipple [facility] [address] [place] [address] Pharmacist Pharmacist 11/30/20 12/06/20 Mehdi Bass DPM [address] [place] [address] [address] [place] [address] Assigned Musculoskeletal Provider 08/14/21 10/27/22 Kae Whipple [facility] [address] [place] [address] Assigned MTM Pharmacist 03/18/22 Maya Goyal MD Assigned Pain Medication Provider 10/02/22 03/23/23 Mehdi Bass DPM [address] [place] [address] [place] [address] Assigned Surgical Provider 10/28/22 [facility] [address] [place] [address] Assigned PCP 10/18/23 12/13/24 documented as of this encounter
--- OUTSIDE RECORDS SUMMARY | 2025-06-28 14:46 | XMS_ITS | Encounter Summary ---
Author Organization [facility] Address [address] [place] [address]. [place] [address] Care Team Providers Care Human Services Instructor Name Role Phone Maya Goyal MD Primary Care Provider UnavailMaya Vazquez MD Unavailable Unavailable Erlin Delcid MD Unavailable [phone] Mehdi Bass DPM Unavailable [phone] Kae Whipple [facility] Unavailable Maya Goyal MD Unavailable Unavailable No Ref-Primary, Physician Primary Care Provider Mehdi Bass DPM Unavailable [phone] [facility] Unavailable Reason for Visit * Reason Onset Date Comments Orders 09/04/2021 Encounter Details Date Type Department Care Team (Late st Contact Info) Description 09/04/2021 [facility] [address] [place] [address] Maya Goyal MD INACTIVE IN [place] 08/23/2024 Orders Social History Tobacco Use Types [...] Sex Assigned at Male 09/17/2018 5:00 PM UNIT NURSE Legal Sex Male 3:11 AM UNIT NURSE Gender Identity Male 09/17/2018 5:00 PM UNIT NURSE Sexual Orientation Straight 09/17/2018 5: 00 PM UNIT NURSE COVID-19 Exposure Response Date Recorded In the last month, have you been in contact with someone who was confirmed or suspected to have Coronavirus / COVID-19? No / Unsure 08/17/2021 12:57 PM UNIT NURSE documented as of this encounter Miscellaneous Notes * Telephone Encounter - Rukhsana Bowden RN - 09/06/2021 10:08 AM UNIT NURSE Sent DB3 Mobile message. NURSE documented in this encounter Plan of Treatment Not on file documented as of this encounter Visit Diagnoses Not on filedocumented in this encounter Additional Health Concerns Assessment Noted Time PHQ-9 Depression Total Score: 10 021 2:58 PM CDT documented as of this encounter Care Teams Human Services Instructor Relationship Specialty Start Date End Date Maya Goyal MD PCP - General 05/03/04 11/14/22 No Ref-Primary, Physician PCP - General 11/15/22 Maya Goyal MD Assigned PCP 06/27/12 10/17/23 Erlin Delcid MD [address] [address] Assigned Surgical Provider 09/12/20 [place] [address] [facility] [address] [place] [address] Assigned Musculoskeletal Provider 08/14/21 10/27/22 Kae Whipple [facility] [address] [place] [address] Assigned MTM Pharmacist 03/18/22 Maya Goyal MD Assigned Pain Medication Provider 10/02/22 03/23/23 Mehdi Bass D[place] [address] [facility] [address] [place] [address] Assigned Surgical Provider 10/28/22 [facility] [address] [place] [address] Assigned PCP 10/18/23 12/13/24 documented as of this encounter
--- OUTSIDE RECORDS SUMMARY | 2025-06-28 14:46 | XMS_ITS | Encounter Summary ---
Author Organization [place] Address [address] [place] [address]. [place] [address] Care Team Providers Care Personnel Quality Assurance Auditor Name Role Phone Maya Goyal MD Primary Care Provider Unavailabl Maya Stallworth MD Unavailable Unavailable Mehdi Sen MD Unavailable [phone] Erlin Delcid MD Unavailable [phone] Elicia Bedoya [facility] Unavailable Kae Whipple [facility] Unavailable Mehdi Bass DPM Unavailable [phone] Kae Whipple [facility] Unavailable Maya Goyal MD Unavailable Unavailable No Ref-Primary, Physician Primary Care Provider Mehdi Bass DPM Unavailable [phone] [facility] Unavailable Encounter Details Date Type Department Care Team (Late st Contact Info) Description 11/01/2020 [facility] [place] [address] [place] [address] Erlin Delcid MD [address] [place] [address] [place] [address] Social History Tobacco Use Types Packs/Day [...] Sex Assigned at Male 09/17/2018 5:00 PM MATERIAL CUTTER Legal Sex Male 3:11 AM MATERIAL CUTTER Gender Identity Male 09/17/2018 5:00 PM MATERIAL CUTTER Sexual Orientation Straight 09/17/2018 5: 00 PM MATERIAL CUTTER COVID-19 Exposure Response Date Recorded In the last month, have you been in contact with someone who was confirmed or suspected to have Coronavirus / COVID-19? No / Unsure 11/04/2020 1:14 PM MATERIAL CUTTER documented as of this encounter Plan of Treatment Not on file documented as of this encounter Visit Diagnoses Not on filedocumented in this encounter Additional Health Concerns Assessment Noted Time PHQ-9 Depression Total Score: 10 020 8:55 AM CDT documented as of this encounter Care Teams Personnel Quality Assurance Auditor Relationship Specialty Start Date End Date Maya Goyal MD PCP - General 05/03/04 11/14/22 No Ref-Primary, Physician PCP - General 11/15/22 Maya Goyal MD Assigned PCP 06/27/12 10/17/23 Mehdi Sen MD [address] [place], [place] [address] Assigned Musculoskeletal Provider 07/16/20 12/18/20 Erlin Delcid MD [address] [facility] [address] [address] Assigned Surgical Provider 09/12/20 Elicia Bedoya, [facility] [address] [place] [address] [address] [place], [place] [id number] Pharmacist Pharmacist 11/09/20 12/06/20 Kae Whipple [facility] [address] [place] [address] Pharmacist Pharmacist 11/30/20 12/06/20 Mehdi Bass DPM [address] [place] [address] [place] [address] Assigned Musculoskeletal Provider 08/14/21 10/27/22 Kae Whipple [facility] [address] [place] [address] Assigned MTM Pharmacist 03/18/22 Maya Goyal MD Assigned Pain Medication Provider 10/02/22 03/23/23 Mehdi Bass DPM [address] [place] [address] Assigned Surgical Provider 10/28/22 [facility] [address] [place] [address] Assigned PCP 10/18/23 12/13/24 documented as of this encounter
--- OUTSIDE RECORDS SUMMARY | 2025-06-28 14:46 | XMS_ITS | Encounter Summary ---
Author Organization [place] Address [address] [place] [address]. [place] [address] Care Team Providers Care Accounts Payables Clerk Name Role Phone Maya Goyal MD Primary Care Provider Unavailabl Maya Stallworth MD Unavailable Unavailable Mehdi Sen MD Unavailable [phone] Erlin Delcid MD Unavailable Elicia Bedoya [facility] Unavailable Kae Whipple [facility] Unavailable Mehdi BassM Unavailable [phone] Kae Whipple [facility] Unavailable Maya Goyal MD Unavailable Unavailable No Ref-Primary, Physician Primary Care Provider Mehdi Bass DPM Unavailable [phone] [facility] Unavailable Reason for Visit * Reason Comments Medication Refill Encounter Details Date Type Department Care Team (Late st Contact Info) Description 10/25/2020 [facility] [address] [place] [address] Maya Goyal MD [place]NACTIVE IN [place] 08/23/2024 Medication Refill Social History Tobacco Use [...] Assigned at Male 09/17/2018 5:00 PM ANALYTICAL LABORATORY TECHNICIAN Legal Sex Male 3:11 AM ANALYTICAL LABORATORY TECHNICIAN Gender Identity Male 09/17/2018 5:00 PM ANALYTICAL LABORATORY TECHNICIAN Sexual Orientation Straight 09/17/2018 5: 00 PM ANALYTICAL LABORATORY TECHNICIAN COVID-19 Exposure Response Date Recorded In the last month, have you been in contact with someone who was confirmed or suspected to have Coronavirus / COVID-19? No / Unsure 10/21/2020 10:08 AM ANALYTICAL LABORATORY TECHNICIAN documented as of this encounter Miscellaneous Notes * Telephone Encounter - Susan Kohler RN - 10/26/2020 11:53 AM ANALYTICAL LABORATORY TECHNICIAN Patient has refills remaining with requesting pharmacy. Susan Cancino - Registered Nurse [facility] YTICAL LABORATORY TECHNICIAN documented in this encounter Plan of Treatment Not on file documented as of this encounter Visit Diagnoses Diagnosis Type 2 diabetes mellitus with stage 1 chronic kidney disease, without long-term current use of insulin (H) documented in this encounter Additional Health Concerns Assessment Noted Time PHQ-9 Depression Total Score: 10 020 8:55 AM CDT documented as of this encounter Care Teams Accounts Payables Clerk Relationship Specialty Start Date End Date Maya Goyal MD PCP - General 05/03/04 11/14/22 No Ref-Primary, Physician PCP - General 11/15/22 Maya Goyal MD Assigned PCP 06/27/12 10/17/23 Mehdi Sen MD [address] [place] [address] Assigned Musculoskeletal Provider 07/16/20 12/18/20 Erlin Delcid MD [address] [place] [address] [place] [address] Assigned Surgical Provider 09/12/20 Elicia Bedoya, [facility] [address] [facility] 8[address] [place] [address] Pharmacist Pharmacist 11/09/20 12/06/20 Kae Whipple, [facility] [address] [place] [address] Pharmacist Pharmacist 11/30/20 12/06/20 Mehdi Bass DPM [id number] [place] [address] [place] [address] Assigned Musculoskeletal Provider 08/14/21 10/27/22 Kae Whipple [facility] [address] [place] [address] Assigned MTM Pharmacist 03/18/22 Maya Goyal MD Assigned Pain Medication Provider 10/02/22 03/23/23 Mehdi Bass DPM [address] [place] [address] [place] [address] Assigned Surgical Provider 10/28/22 [facility] [address] [place] [address] Assigned PCP 10/18/23 12/13/24 documented as of this encounter
--- OUTSIDE RECORDS SUMMARY | 2025-06-28 14:46 | XMS_ITS | Encounter Summary ---
Author Organization [place] Address [address] [place] [address]. [place] [address] Care Team Providers Care Rock Crusher Operator Name Role Phone Maya Goyal MD Primary Care Provider UnavailMaya Vazquez MD Unavailable Unavailable Erlin Delcid MD Unavailable [phone] Mehdi Bass DPM Unavailable [phone] Kae Whipple [facility] Unavailable Maya Goyal MD Unavailable Unavailable No Ref-Primary, Physician Primary Care Provider Mehdi Bass DPM Unavailable [phone] [facility] Unavailable Reason for Visit * Reason Comments Medication Refill Encounter Details Date Type Department Care Team (Late st Contact Info) Description 07/11/2021 [facility] [address] [place] [phone] Maya Goyal MD INACTIVE IN [place] 08/23/2024 [...] at Male 09/17/2018 5:00 PM DIRECTOR OF OFFICIATING Legal Sex Male 3:11 AM DIRECTOR OF OFFICIATING Gender Identity Male 09/17/2018 5:00 PM DIRECTOR OF OFFICIATING Sexual Orientation Straight 09/17/2018 5: 00 PM DIRECTOR OF OFFICIATING documented as of this encounter Miscellaneous Notes [...] documented as of this encounter Care Teams Rock Crusher Operator Relationship Specialty Start Date End Date Maya Goyal MD PCP - General 05/03/04 11/14/22 No Ref-Primary, Physician PCP - General 11/15/22 Maya Goyal MD Assigned PCP 06/27/12 10/17/23 Erlin Delcid MD [address] [address] Assigned Surgical Provider 09/12/20 Mehdi Bass [place] [address] [facility] [address] [place], [place] [address] Assigned Musculoskeletal Provider 08/14/21 10/27/22 Kae Whipple [facility] [address] [place], [place] [address] Assigned MTM Pharmacist 03/18/22 Maya Goyal MD Assigned Pain Medication Provider 10/02/22 03/23/23 [place] [address] [facility] [address] [place], [place] [address] Assigned Surgical Provider 10/28/[address] [address] Assigned PCP 10/18/23 12/13/24 documented as of this encounter
--- OUTSIDE RECORDS SUMMARY | 2025-06-28 14:46 | XMS_ITS | Encounter Summary ---
Author Organization [place] Address [address] [place] [address]. [place] [address] Care Team Providers Care Cna Name Role Phone Maya Goyal MD Primary Care Provider UnavailMaya Vazquez MD Unavailable Unavailable Erlin Delcid MD Unavailable Mehdi Bass DPM Unavailable [phone] Kae Whipple [facility] Unavailable Maya Goyal MD Unavailable Unavailable No Ref-Primary, Physician Primary Care Provider Mehdi Bass DPM Unavailable [phone] [facility] Unavailable Reason for Visit * Reason Comments Medication Refill Encounter Details Date Type Department Care Team (Late st Contact Info) Description 07/20/2021 [facility] [address] [place] [phone] Maya Goyal MD INACTIVE IN [place] 08/23/2024 [...] Sex Assigned at Male 09/17/2018 5:00 PM BOILER SHOP SUPERVISOR Legal Sex Male 3:11 AM BOILER SHOP SUPERVISOR Gender Identity Male 09/17/2018 5:00 PM BOILER SHOP SUPERVISOR Sexual Orientation Straight 09/17/2018 5: 00 PM BOILER SHOP SUPERVISOR documented as of this encounter Miscellaneous Notes * Telephone Encounter - Rukhsana Yo RN - 07/20/2021 3:55 PM CDT Prescription approved per [facility] Refill Protocol. * Telephone Encounter - Jenn [...] documented as of this encounter Care Teams Cna Relationship Specialty Start Date End Date Maya Goyal MD PCP - General 05/03/04 11/14/22 No Ref-Primary, Physician PCP - General 11/15/22 Maya Goyal MD Assigned PCP 06/27/12 10/17/23 Erlin Delcid MD [address] [place] [place] [address] Assigned Surgical Provider 09/12/20 Mehdi Bass DPM [address] [place] [address] Assigned Musculoskeletal Provider 08/14/21 10/27/22 Kae Whipple [facility] [address] [place] [address] Assigned MTM Pharmacist 03/18/22 Maya Goyal MD Assigned Pain Medication Provider 10/02/22 03/23/23 Mehdi Bass DPM [address] [facility] [address] [place] [address] Assigned Surgical Provider 10/28/22 [facility] [address] [place], [place] [address] Assigned PCP 10/18/23 12/13/24 documented as of this encounter
--- OUTSIDE RECORDS SUMMARY | 2025-06-28 14:46 | XMS_ITS | Encounter Summary ---
Author Organization [place] Address [address] [place] [address]. [place] [address] Care Team Providers Care Command And Control Officer Name Role Phone Maya Goyal MD Primary Care Provider UnavailMaya Vazquez MD Unavailable Unavailable Erlin Delcid MD Unavailable [phone] Mehdi Bass DPM Unavailable [phone] [facility] Unavailable Maya Goyal MD Unavailable Unavailable No Ref-Primary, Physician Primary Care Provider Mehdi Bass DPM Unavailable [phone] [facility] Unavailable Encounter [...] Sex Assigned at Male 09/17/2018 5:00 PM DIPLOMATIC INTERPRETER/TRANSLATOR Legal Sex Male 3:11 AM DIPLOMATIC INTERPRETER/TRANSLATOR Gender Identity Male 09/17/2018 5:00 PM DIPLOMATIC INTERPRETER/TRANSLATOR Sexual Orientation Straight 09/17/2018 5: 00 PM DIPLOMATIC INTERPRETER/TRANSLATOR COVID-19 Exposure Response Date Recorded In the [...] documented as of this encounter Care Teams Command And Control Officer Relationship Specialty Start Date End Date Maya Goyal MD PCP - General 05/03/04 11/14/22 No Ref-Primary, Physician PCP - General 11/15/22 Maya Goyal MD Assigned PCP 06/27/12 10/17/23 Erlin Delcid MD [address] [address] Assigned Surgical Provider 09/12/20 [place] [address] [facility] [address] [place] [address] Assigned Musculoskeletal Provider 08/14/21 10/27/22 Kae Whipple [facility] [address] [place] [address] Assigned MTM Pharmacist 03/18/22 Maya Goyal MD Assigned Pain Medication Provider 10/02/22 03/23/23 Mehdi Bass DPM [address] [facility] [address] [place] [address] Assigned Surgical Provider 10/28/22 [facility] [place], [address] [address] Assigned PCP 10/18/23 12/13/24 documented as of this encounter
--- OUTSIDE RECORDS SUMMARY | 2025-06-28 14:46 | XMS_ITS | Encounter Summary ---
Author Organization [place] Address [address] [place] [address]. [place] [address] Care Team Providers Care Early Childhood Lead Teacher Name Role Phone Maya Goyal MD Unavailable Unavailable No Ref-Primary, Physician Primary Care Provider [facility] Unavailable Reason for Visit * Reason Comments Medication Refill Encounter Details Date Type Department Care Team (Late st Contact Info) Description 10/03/2023 [address] [place] [address] Maya Goyal MD INACTIVE IN [...] Sex Assigned at Male 09/17/2018 5:00 PM FLAKE DRIER Legal Sex Male 3:11 AM FLAKE DRIER Gender Identity Male 09/17/2018 5:00 PM FLAKE DRIER Sexual Orientation Straight 09/17/2018 5: 00 PM FLAKE DRIER documented as of this encounter Miscellaneous Notes * Telephone Encounter - Rukhsana Bowden RN - 10/03/2023 1:53 PM FLAKE DRIER Pt going to [facility] now. Please deny med, will put notes in Rx. Catia Swift MD [address] [place] [address] [address] documented in this encounter Plan of Treatment Not on file documented as of this encounter Visit Diagnoses Diagnosis Type 2 diabetes mellitus with stage 1 chronic kidney disease, without long-term current use of insulin (H) documented in this encounter Additional Health Concerns Assessment Noted Time PHQ-9 Depression Total Score: 10 05/16/ 021 2:58 PM CDT documented as of this encounter Care Teams Early Childhood Lead Teacher Relationship Specialty Start Date End Date No Ref-Primary, Physician PCP - General 11/15/22 Maya Goyal MD Assigned PCP 06/27/12 10/17/23 [facility] - [address] [address] Assigned PCP 10/18/23 12/13/24 documented as of this encounter
--- OUTSIDE RECORDS SUMMARY | 2025-06-28 14:46 | XMS_ITS | Encounter Summary ---
Author Organization [place] Address [address] [place] [address] Care Team Providers Care Trimming Assembler Name Role Phone Maya Goyal MD Primary Care Provider UnavailMaya Vazquez MD Unavailable Unavailable Erlin Delcid MD Unavailable [phone] Mehdi Bass DPM Unavailable [phone] Kae Whipple [facility] Unavailable Maya Goyal MD Unavailable Unavailable No Ref-Primary, Physician Primary Care Provider Mehdi Bass DPM Unavailable [phone] [facility] Unavailable Reason for Visit * Reason Onset Date Comments Patient Inquiry 09/02/2021 Encounter Details Date Type Department Care Team (Late st Contact Info) Description 09/02/2021 [facility] [address] [address] Mehdi [place] D[place] [address] [facility] [address] [place] [address] Patient Inquiry Social History Tobacco [...] Sex Assigned at Male 09/17/2018 5:00 PM ADJUNCT ENGLISH INSTRUCTOR Legal Sex Male 3:11 AM ADJUNCT ENGLISH INSTRUCTOR Gender Identity Male 09/17/2018 5:00 PM ADJUNCT ENGLISH INSTRUCTOR Sexual Orientation Straight 09/17/2018 5: 00 PM ADJUNCT ENGLISH INSTRUCTOR COVID-19 Exposure Response Date Recorded In the last month, have you been in contact with someone who was confirmed or suspected to have Coronavirus / COVID-19? No / Unsure 08/17/2021 12:57 PM ADJUNCT ENGLISH INSTRUCTOR documented as of this encounter Plan of Treatment Not on file documented as of this encounter Visit Diagnoses Not on filedocumented in this encounter Additional Health Concerns Assessment Noted Time PHQ-9 Depression Total Score: 10 021 2:58 PM CDT documented as of this encounter Care Teams Trimming Assembler Relationship Specialty Start Date End Date Maya Goyal MD PCP - General 05/03/04 11/14/22 No Ref-Primary, Physician PCP - General 11/15/22 Maya Goyal MD Assigned PCP 06/27/12 10/17/23 Erlin Delcid MD [address] [facility] [address] [place] [address] Assigned Surgical Provider 09/12/20 Mehdi Bass [place] [address] [facility] [address] [place] [address] Assigned Musculoskeletal Provider 08/14/21 10/27/22 Kae Whipple [place] [address] Assigned MTM Pharmacist 03/18/22 Maya Goyal MD Assigned Pain Medication Provider 10/02/22 03/23/23 Meh[place] D[place] [address] [facility] [address] [place], [place] [address] Assigned Surgical Provider 10/28/[address] [id number] Assigned PCP 10/18/23 12/13/24 documented as of this encounter
--- OUTSIDE RECORDS SUMMARY | 2025-06-28 14:46 | XMS_ITS | Clinical Summary ---
Author Organization [facility] Address [address] [place] [id number] Care Team Providers Care Production Potter Name Role Phone Sarahi Roche RN Unavailable Caryl Shi DO Primary Care Provider [phone] [facility] CareAbhay Unavailable Allergies No known active allergies Medications Multivitamin Cmb No.21-Iron-FA 18-400 mg-mcg tab Take 1 Tablet by mouth once daily. Active insulin aspart, U-100, (NOVOLOG FLEXPEN) 100 unit/mL (3 mL) penIndications:Ty pe 2 diabetes mellitus with complication, with long-term current use of insulin (HC) Inject 10 units subcutaneous two times daily before meals. 15 mL 3 10/31/19 25 Active DULoxetine (CYMBALTA) 60 mg Delayed-release capsuleIndication s:Mild episode of recurrent major depressive disorder Take 1 Capsule (60 mg) by mouth once daily. Take with 30 mg capsule for total of 90 mg TDD. 90 Capsule 1 10/31/19 25 Active DULoxetine (CYMBALTA) 30 mg Delayed-release capsuleIndication s:Mild episode of recurrent major depressive disorder Take 1 Capsule (30 mg) by mouth once daily. Take with 60 mg capsule for 90 mg total per day. 90 Capsule 1 10/31/19 25 Active Tresiba FlexTouch U-200 200 unit/mL (3 mL) penIndications:Ty pe 2 diabetes mellitus with complication, with long-term current use of insulin (HC) Inject 77 units subcutaneous at bedtime. 15 mL 5 12/24/19 25 Active rosuvastatin 10 mg tabletIndications :Hyperlipidemia LDL goal <100 Take 1 Tablet (10 mg) by mouth at bedtime. 90 Tablet 3 02/15/20 25 Active magnesium oxide 400 mg tabletIndications :Hypomagnesemia Take 1 Tablet (400 mg) by mouth once daily. 90 Tablet 3 02/19/20 25 Active lisinopril-hydroc hlorothiazide (20-25 mg) 20-25 mg per tabletIndications :HTN (hypertension) Take 1 Tablet by mouth once daily. 90 Tablet 2 03/31/20 25 Active empagliflozin (JARDIANCE) 25 mg tabletIndications :Type 2 diabetes mellitus with complication, with long-term current use of insulin (HC) Take 1 Tablet (25 mg) by mouth once daily. 90 Tablet 04/09/20 25 Active acetaminophen (TYLENOL EXTRA STRGTH) 500 mg tabletIndications :S/P total knee arthroplasty, right Take 2 Tablets (1,000 mg) by mouth every 6 hours. Max acetaminophen dose: 4000mg in 24 hrs. 200 Tablet 04/15/20 25 Active sennosides-docusa te (Senokot-S) (8.6-50 mg) tabletIndications [...] tablet 2 times a day. 100 Tablet 04/15/20 25 Active ondansetron (ZOFRAN ODT) 4 mg disintegrating tabletIndications :S/P total knee arthroplasty, right Place 1 Tablet (4 mg) on the tongue every 8 hours if needed for Nausea/Vomiting. 20 Tablet 04/15/20 25 Active naloxone (NARCAN) 4 mg/actuation nasal sprayIndications: S/P total knee arthroplasty, right Inhale 1 [place] into affected nostril(s) each time if needed for Patient Diff To Arouse or Resp Rate < 8 / min. Additional doses may be given every 2 to 3 minutes until emergency medical assistance arrives. 2 Each 04/15/20 25 Active Dexcom G7 Sensor for continuous blood glucose monitor (CGM)Indications: Type 2 diabetes mellitus with stage 1 chronic kidney disease, with long-term current use of insulin (HC) To be used to read blood sugars, follow fitness teacher directions. 9 Each 3 04/16/20 25 Active carvediloL (COREG) 25 mg tabletIndications :Benign essential hypertension Take 2 Tablets (50 mg) by mouth two times daily with meals. 360 Tablet 2 04/27/20 25 Active traZODone (DESYREL) 100 mg tabletIndications :Insomnia, unspecified type Take 1-1.5 Tablets (100-150 mg) by mouth at bedtime. 90 Tablet 1 05/20/20 25 Active alteplase (CATHFLO ACTIVASE) injectionIndicati ons:MSSA bacteremia 2 mg by Intra-Catheter route each time if needed for Catheter Clearance. Instill 2 mg into catheter and allow to dwell for 30 minutes. If unable to aspirate blood, allow to dwell for a total of 120 minutes. 2 mL 2 05/29/20 25 Active ceFAZolin (ANCEF; KEFZOL) injectionIndicati ons:Infection associated with internal right knee prosthesis, initial encounter,MSSA bacteremia Inject 3 g intravenous every 8 hours. 2700 mL 1 05/29/20 25 025 Active aspirin enteric coated 81 mg tabletIndications :S/P total knee arthroplasty, right Take 1 Tablet (81 mg) by mouth two times daily with meals. Begin morning after surgery. Take for 6 weeks following surgery, do not stop taking this medication until 6 weeks after surgery for DVT/ blood clot prevention. 84 Tablet 5 2:51 PM CDT 05/29/20 25 Active methocarbamoL 500 mg tabletIndications :S/P total knee arthroplasty, right Take 1 Tablet (500 mg) by mouth every 6 hours if needed for Muscle Spasm. 30 Tablet 5 2:51 PM CDT 05/29/20 25 Active metFORMIN (GLUCOPHAGE) 500 mg tabletIndications :Type 2 diabetes mellitus with stage 3b chronic kidney disease, with long-term current use of insulin (HC) TAKE 2 TABLETS BY MOUTH EVERY MORNING AND 2 TABLETS IN THE EVENING WITH MEALS 360 Tablet 06/03/20 25 Active naproxen (ALEVE) 220 mg tabletIndications :pain Take 220 mg by mouth every 12 hours if needed for Pain. Take 1 tablet by mouth every 12 hours as needed. Indications: pain 06/01/20 25 Active sodium chloride 0.9 % syringe Inject 10 mL intravenous every 8 hours. Inject 10 ml into PICC line before and after each antibiotic infusion every 8 hours. Active heparin sod,porcine/0.9 % NaCl (HEPARIN FLUSH IV) 10 Units/mL by intravenous push route every 8 hours. Inject 10 units/mL into PICC line every 8 hours after antibiotic infusion and Saline flush Active gabapentin (NEURONTIN) 300 mg capsuleIndication s:Diabetic peripheral neuropathy associated with type 2 diabetes mellitus (HC) Take 2 Capsules (600 mg) by mouth three times daily. 270 Capsule 3 06/05/20 25 Active pantoprazole (PROTONIX) 40 mg delayed-release tabletIndications :Status post total right knee replacement Take 1 Tablet (40 mg) by mouth once daily before a meal. 90 Tablet 06/05/20 25 Active furosemide (LASIX) 20 mg tabletIndications :HTN (hypertension),Bi lateral lower extremity edema Take 1 Tablet (20 mg) by mouth once daily in the morning. 90 Tablet 06/10/20 25 Active hydrOXYzine HCL (ATARAX) 25 mg tablet Take 25 mg by mouth every 8 hours if needed. 06/04/20 25 Active polyethylene glycoL (MIRALAX) 17 gram/scoop powder Mix 17 g in liquid then take by mouth once daily if needed for Constipation. Active oxyCODONE (ROXICODONE) 5 mg immediate release tabletIndications :S/P total knee arthroplasty, right Take 1-2 Tablets (5-10 mg) by mouth every 6 hours if needed for Pain. 30 Tablet 06/10/20 25 Active suzetrigine (Journavx) 50 mg tablet Take 50 mg by mouth every 12 hours. Take 1-2 tabs by mouth every 12 hours 06/04/20 25 Active metFORMIN (GLUCOPHAGE) 500 mg tabletIndications :Type 2 diabetes mellitus with stage 3b chronic kidney disease, with long-term current use of insulin (HC) TAKE 2 TABLETS BY MOUTH EVERY MORNING AND 2 TABLETS IN THE EVENING WITH MEALS 360 Tablet 11/26/19 25 025 Discontin ued(Reord er (E-cancel not sent)) furosemide 20 mg tabletIndications :HTN (hypertension),Bi lateral lower extremity edema Take 1 Tablet (20 mg) by mouth once daily in the morning. 90 Tablet 02/19/20 25 025 Discontin ued(Reord er (E-cancel not sent)) gabapentin (NEURONTIN) 300 mg capsuleIndication s:Diabetic peripheral neuropathy associated with type 2 diabetes mellitus (HC) Take 1 Capsule (300 mg) by mouth three times daily. 270 Capsule 3 04/18/20 25 025 Discontin ued(*Medi cation adjustmen t) pantoprazole (PROTONIX) 40 mg delayed-release tabletIndications :S/P total knee arthroplasty, right [The details of the medication are not available because there are pending changes by a home health clinician.] 30 Tablet 05/18/20 25 025 Discontin ued(*Elva ent states no longer taking) oxyCODONE (ROXICODONE) 5 mg immediate release tabletIndications :S/P total knee arthroplasty, right Take 1-2 Tablets (5-10 mg) by mouth every 6 hours if needed for Pain. 30 Tablet 05/29/20 25 025 Discontin ued(Reord er (E-cancel not sent)) hydrOXYzine HCL (ATARAX) 25 mg tablet Take 25 mg by mouth every 8 hours if needed (pain). 025 Discontin ued(Dupli anat therapy (E-cancel not sent)) HYDROmorphone 2 mg tablet Take 2 mg by mouth every 4 hours if needed for Pain. 025 Discontin ued(Other - add note to specify (E-cancel not sent)) Active Problems Problem Noted Date Diagnosed Date MSSA bacteremia 05/26/2025 Gram-positive cocci bacteremia 05/22/2025 Infection of prosthetic right knee joint Chronic pain 04/15/2025 Status post total knee [...] Controlled substance agreement signed 05/02/2022 Overview (05/02/2022): [facility]. Symone Flores CMA 10:37 AM [...] Encounters Date Type Department Care Team Description 06/26/2025 9:00 AM CDT Home Care Visit [facility] [address] [place] [address] Enid Pitt RN SN - HOME VISIT 06/25/2025 2:45 PM CDT Home Care Visit [facility] [address] [place] [address] Marli Herrmann, PT PT - HOME VISIT 06/23/2025 1:15 PM CDT Office Visit [facility] [address] [facility] [address] [place] [address] Rishabh Hernandez DO Surgical Followup (s/p right revision TKA DOS: 05/28/2025 by Rishabh Hernandez DO) 06/23/2025 Travel 06/22/2025 11:45 AM CDT Home Care Visit [facility] [address] [place] [address] Enid Pitt RN SN - LONG VISIT (>90 MINUTES) 06/22/2025 Orders Only [facility] [address] [place] [phone] Jonathan Klein MD Lab 06/22/2025 Orders Only [facility] [address] [place] [address] Jonathan Klein MD Lab (Home Health) 06/19/2025 2:15 PM CDT Home Care Visit [facility] [address] [place] [phone] Enid Pitt RN SN - HOME VISIT 06/18/2025 11:00 AM CDT Telemedicine [facility] [address] [facility] [address] [place] [address] Jonathan Klein MD 06/18/2025 Travel 06/15/2025 3:15 PM CDT Home Care Visit [facility] [address] [place] [phone] Marli Herrmann, PT PT - HOME VISIT 06/15/2025 1:45 PM CDT Home Care Visit [facility] [address] [place] [phone] Enid Pitt, BETTE SN - LONG VISIT (>90 MINUTES) 06/15/2025 Home Care Visit [facility] [address] [place] [address] Malika Avelar, PT CARE COORDINATION 06/15/2025 Orders Only [facility] [address] [place] [address] Jonathan Klein MD Lab 06/15/2025 Orders Only [facility] [address] [place] [address] Jonathan Klein MD Lab 06/15/2025 Orders Only [facility] [address] [place] [phone] Jonathan Klein MD Lab (Home Health) 06/15/2025 Orders Only [facility] [address] [place] [phone] Jonathan Klein MD Lab ([facility]) 06/15/2025 Telephone [facility] [place], [place] [phone] Enid Pitt, conformal pad former (Clarification on med & R knee wound) 06/12/2025 12:00 PM CDT Home Care Visit [facility] [address] [place] [phone] Evonne Dunbar, BETTE SN - HOME VISIT 06/12/2025 8:00 AM CDT Home Care Visit [facility] [address] [place] [phone] Que Crawford, BETTE SN - WOUND/OSTOMY DC CONSULT 06/12/2025 Telephone [facility] [address] [facility] [address] [place] [address] Rishabh Hernandez, DO Home Care 06/10/2025 11:00 AM CDT Office Visit [facility] [place] [address] [facility] 1 [place] [phone] Rishabh Hernandez DO Surgical Followup (s/p RTKA DOS: 04/15/2025 by Rishabh Hernandez DO) 06/10/2025 Telephone [facility] [address] [facility] [address] [place] [address] Rishabh Hernandez DO Medication questions (patient may be double dipping for prescription of oxycodone and is currently prescribed Journavx 50 mg tablets through [facility]) 06/10/2025 Travel 06/09/2025 Home Care Visit [facility] [address] [place] [address] India Singh, [employer] CARE COORDINATION 06/08/2025 11:00 AM CDT Home Care Visit [facility] [address] [place] [address] Malika Avelar, PT PT - INITIAL ASSESSMENT 06/08/2025 10:00 AM CDT Home Care Visit [facility] [address] [place] [address] Roseline West, DIRECTOR PRINT DIRECTOR PRINT - LONG VISIT (>90 MINUTES) 06/08/2025 Home Care Visit [facility] [address] [place] [address] India Singh, [employer] CARE COORDINATION 06/08/2025 Telephone [facility] [address] [facility] [address] [place] [address] Rishabh Hernandez DO Questions (restrictions ) 06/08/2025 Refill [facility] [address] [place] [address] Caryl Shi DO Refill Request; FUROSEMIDE; METFORMIN 06/08/2025 Orders Only [facility] [address] [place] [address] Caryl Shi, DO <No scans attached> 06/05/2025 2:15 PM CDT Home Care Visit [facility] [address] [place] [phone] Enid Pitt, RN SN - HOME VISIT 06/05/2025 11:15 AM CDT Telemedicine [facility] [address] [place] [address] Caryl Shi, DO Pre-Op Exam (Patient would like to do a surgery follow up. His surgeon will take the bandage off. He states he is in lots of pain.) 06/05/2025 Travel 06/05/2025 Telephone [facility] [address] [place] [address] Caryl Shi, DO Appointment (Virtual today - 11:15am) 06/04/2025 10:30 AM CDT Home Care Visit [place] [id number] [place] [phone] Malika Buenrostro, OT OT - [id number] ASSESSMENT 06/04/2025 Telephone [facility] [address] [place] [address] Caryl Shi, DO Appointment 06/04/2025 Refill [facility] [address] [place] [address] Caryl Shi, DO Refill Request (Metformin HCL 500mg tabs) 06/03/2025 Home Care Visit [facility] [address] [place] [phone] India Singh MSW [employer] - TELEHEALTH ASSESSMENT 06/03/2025 Home Care Visit [facility] [address] [place] [phone] Enid Pitt, RN CARE COORDINATION 06/02/2025 Home Care Visit [facility] [address] [place] [phone] Enid Pitt, RN CARE COORDINATION 06/02/2025 Home Care Visit [facility] [address] [place] [address] Catarina Renee, BETTE CARE COORDINATION 06/02/2025 Telephone [facility] [address] [place] [address] Lachelle Palacios, RYLIE Lab 06/02/2025 Orders Only [facility] [address] [place] [address] Caryl Shi, <No scans attached> 2025 Telephone [facility] [address] [facility] [address] [place] [address] Rishabh Hernandez, Concerns (Pump lights and brace) 2025 Telephone [facility] [address] [place] [phone] Enid Pitt, conformal pad former (Home care orders and med discrepancies) 2025 Refill [facility] [address] [place] [address] Caryl Shi DO Refill Request (Metformin) 2025 Patient Outreach [facility] [address] [place] [address] Adeola Gonzalez, BETTE Primary RN Care Management; Hospital F/U (Lace=69) 05/31/2025 11:30 AM CDT Home Care Visit [facility] [address] [place] [phone] Enid Pitt, BETTE SN IV - START OF CARE 05/31/2025 Plan of Care Documentation [address] [phone] 05/28/2025 12:13 PM CDT Anesthesia Event [facility] [address] [place] [address] Caryl Varner MD Jacobson, Elizabeth Jeanne, CIVIL LITIGATION ATTORNEY 05/28/2025 11:15 AM CDT - 05/28/2025 3:53 PM CDT Surgery [facility] [address] [place] [address] Rishabh Hernandez, RIGHT ARTHROPLASTY REVISION KNEE 05/27/2025 Patient Outreach [facility] [address] [place] [phone] Infusion, [facility] ([place] [address] ) 05/26/2025 Telephone [facility] [address] [place] [address] Rishabh Hernandez DO Surgery Scheduled 05/25/2025 Travel 05/22/2025 Telephone [facility] [address] [place] [address] Rishabh Hernandez DO Questions (He would like a call) 05/21/2025 4:53 PM CDT - 05/29/2025 8:15 PM CDT Hospital Encounter [facility] [address] [place] [address] [facility] [place], MD Ele Fry Jae-Woo, MD Storlie, MD David Laurent Dustin Jon, Infection associated with internal right knee prosthesis, subsequent encounter (Primary Dx); Infection associated with internal right knee prosthesis, initial encounter; MSSA bacteremia; Gram-positive cocci bacteremia; S/P total knee arthroplasty, right Discharge Disposition: Home Health 05/20/2025 Refill [facility] [address] [place] [address] Caryl Shi, Error-please disregard 05/19/2025 Telephone [facility] [address] [place] [address] Rishabh Hernandez DO 05/18/2025 Refill [facility] [address] [place] [address] Priscila Tolliver PA Refill Request 05/13/2025 Telephone [facility] [address] [place] [phone] Sebastian Louis PsyD, LP Late Cancel Appointment 04/29/2025 11:00 AM CDT Office Visit [facility] 35 [facility] 1 [place] [phone] Priscila Tolliver PA Surgical Followup (2 week s/p RTKA) 04/29/2025 Travel 04/24/2025 Travel 04/24/2025 Refill [facility] [address] [place] [address] Caryl Shi DO Refill Request (Carvedilol 25mg tabs) 04/16/2025 Telephone [facility] [address] [facility] [address] [place] [address] Priscila Tolliver PA Questions (post op surgery questions ) 04/16/2025 Telephone [facility] [address] [place] [phone] Sarahi Roche RN Medication Management (FreeStyle Susanna 3 Plus Sensor for continuous blood glucose monitor (CGM) 04/15/2025 3:30 PM CDT - 04/15/2025 6:05 PM CDT Surgery [facility] 200 [place] [address] Rishabh Hernandez DO ARTHROPLASTY KNEE 04/15/2025 2:39 PM CDT Anesthesia Event [facility] [address] [place] [address] Susan Carvalho CRNA Allen, Carissa Lynn, NELSON 04/15/2025 11:25 AM CDT - 04/15/2025 7:40 PM CDT Hospital Encounter [facility] [address] [place] [address] Rishabh Hernandez DO Gorden Klukas, Brandi Hope, MD Jyrkas, Fabienne S, RN Primary osteoarthritis of right knee (Primary Dx); S/P total knee arthroplasty, right Discharge Disposition: Home Self Care 04/15/2025 Refill [facility] [address] [place] [address] Caryl Shi, DO Refill Request (GABAPENTIN 300MG CAPS) 04/15/2025 Travel 04/14/2025 Telephone [facility] [address] [facility] [address] [place] [address] Priscila Tolliver PA OTHER (PT) 04/09/2025 10:30 AM CDT Office Visit [facility] [address] [place] [address] Tristan Castillo MD Consult (insomnia) 04/08/2025 10:30 AM CDT Office Visit [facility] [address] [phone] Rishabh Hernandez, Follow Up (Wound Check for Right TKA) 04/08/2025 Travel 04/06/2025 10:25 AM CDT Office Visit [facility] [address] [place] [address] Caryl Shi, Medicare ANNUAL (subsequent) Visit (64 year old) 04/06/2025 Refill [facility] [address] [place] [address] Caryl Shi, Refill Request (Jardiance 25mg tabs) 04/06/2025 Travel 04/05/2025 Travel 04/01/2025 12:30 PM CDT Office Visit [facility] [address] [place] [address] Sebastian Louis PsyD, Mental Health Intake 04/01/2025 Travel 03/31/2025 11:20 AM CDT Office Visit [facility] at [address] [phone] Luis Eduardo Watts MD Procedure (Right L4-5 TFESI) 03/30/2025 Refill [facility] [address] [place] [address] Caryl Shi, DO Refill Request (Lisinopril-Hydrochl oroth 20-25 tabs) from Last 3 Months Immunizations Immunization Administration [...] or isolated from those around you? 0 05/25/2025 Alcohol Use Answer Date Recorded How often do you have a drink containing alcohol ? 3 06/05/2025 How many drinks containing a lcohol do you have on a typical day when you are drinking? 1 06/05/2025 How often do you have five or more drinks on one occasion? 0 06/05/2025 Financial Resource Strain Answer Date R ecorded Difficulty of Paying Living Expenses 2 05/25/2025 Difficulty of Paying Living Expenses 1 05/25/2025 Food Insecurity Answer Date Recorded Do you worry your food will run out before you are able to buy more? 1 05/25/2025 Transportation Needs Answer Date Record ed Does lack of transportation keep you from medica l appointments? 1 05/25/2025 Does lack of transportation keep you from work, meetings or getting things that you need? 1 05/25/2025 Housing Stability Answer Date Recorded What is your housing situation today? 1 05/25/2025 Interpersonal Safety Answer Date Record ed Are you being hit, kicked, p ushed or yelled at (see row info)? No 05/25/2025 Interpersonal Safety Abuse 12 - 18 Not on file 05/25/2025 Interpersonal Safety Ambulatory Vulnerability No t on file 05/25/2025 Utilities Answer Date Recorded Do you have trouble paying f or utilities (for example, heat, electricity, water, phone)? 2 05/25/2025 Sex and Gender Information Value Date Recorded Sex Assigned at Male 04/30/2022 4:18 PM CDT Legal Sex Male 3:09 PM CDT Gender Identity Male 04/30/2022 4:18 PM CDT Sexual Orientation Straight 04/30/2022 4: 18 PM CDT Obstetrics History Last Filed Vital Signs Vital Sign Reading Time Taken Comments Blood Pressure 120/69 06/25/2025 3:08 PM CDT Pulse 64 06/25/2025 3:08 PM CDT Temperature 36.3 C (97.4 F) 06/25/2025 3:08 PM CDT Respiratory Rate 16 06/25/2025 3:08 PM CDT Oxygen Saturation 98% 06/25/2025 3:08 PM CDT Inhaled Oxygen Concentration - - Weight 142.9 kg (315 lb) 05/31/2025 1:11 PM CDT Height 188 cm (6' 2) 05/31/2025 1:11 PM CDT Body Mass Index 40.44 05/31/2025 1:11 PM CDT Plan of Treatment Upcoming Encounters Date Type Department Care Team ([facility] st Contact Info) Description 06/29/2025 12:00 PM CDT Appointment [address] [phone] Enid Pitt, RN [address] [place] [address] 07/03/2025 3:00 AM CDT Appointment [address] [phone] Marli Herrmann, PT [address] [place] [address] 07/03/2025 4:00 AM CDT Appointment [address] [place] [phone] Enid Pitt, BETTE [address] [place] [address] 07/06/2025 4:00 AM CDT Appointment [facility] [address] [place] [phone] Enid Pitt, RN [address] [place] [address] 07/10/2025 4:00 AM CDT Appointment [facility] [address] [place] [phone] Enid Pitt, BETTE [address] [place] [address] 07/13/2025 4:00 AM CDT Appointment [facility] [address] [place] [phone] Enid Pitt, BETTE [address] [place] [address] 07/15/2025 11:00 AM CDT Telemedicine [facility] [address] [address] Jonathan Klein MD [address] [place] [phone] 07/17/2025 4:00 AM CDT Appointment [facility] [address] [place] [phone] Enid Pitt, BETTE [address] [place] [address] 07/20/2025 4:00 AM CDT Appointment [facility] [address] [place] [phone] Enid Pitt, RN [address] [place] [address] 07/22/2025 2:30 PM CDT Office Visit [facility] [place] [address] [phone] Rishabh Hernandez, [address] [place] [address] 07/24/2025 4:00 AM CDT Appointment [facility] [address] [place] [id number] [place] Pitt, [address] [place] [address] Health Maintenance Due Date Last Done Comments Pneumococcal series for age 50+ (1 of 2 - PCV) 1977 RSV vaccine for adults or (1 - Risk 60-74 years 1-dose series) 2018 Colonoscopy through age 75 08/13/202408/13 (Verified in Care Everywhere or Patient Record) COVID-19 vaccine series ( season) 2025 Influenza Vaccine (#1) 2025 08/04/2003 BMI (ht [...] Completed 08/27/2023 Medical Devices Implanted Type Area Director Of Resource Development Device Identifier Shelf Expiration Date Model / Serial / Lot Triathlon Cruciate Retaining Femoral Implanted:Qty: 1 on 04/15/2025 by Rishabh Hernandez DO at [facility] Right: Knee [employer] 11/03/2028 5517-F-702 / / [id number] Triathlon X3 Tibial Bearing Insert Cs Implanted:Qty: 1 on 04/15/2025 by Rishabh Hernandez DO at [facility] Right: Knee [employer] 07/29/2029 5531-G-609 -[id number] / / [id number] Triathlon Tritanium Tibial Component Implanted:Qty: 1 on 04/15/2025 by Rishabh Hernandez DO at [facility] Right: Knee [employer] 01/28/2030 5536-B-600 / / [id number] Fem Rt Sz 7 Triathlon Cruc Retco Cr - [id number] Implanted:Qty: 1 on 05/28/2025 by Rishabh Hernandez DO at [facility] Right: Knee [employer] 09/09/2028 5510-F-702 / / [id number] Compnt Tib Sz 6 9mm Triathlon - [id number] Implanted:Qty: 1 on 05/28/2025 by Rishabh Hernandez DO at [facility] Right: Knee [employer] 04/10/2029 [id number] / / [id number] Simplex P Full Dose 1 Pack Implanted:Qty: 2 on 05/28/2025 by Rishabh Hernandez DO at [facility] Right: Knee 09/23/2027 6191-1-001 / / [id number] Description:SIMPLEX P FULL D OSE 1 PACK Simplex P Full Dose 1 Pack Implanted:Qty: 1 on 05/28/2025 by Rishabh Hernandez DO at [facility] Right: Knee 08/23/2027 6191-1-001 / / [id number] Description:SIMPLEX P FULL D OSE 1 PACK Procedures Procedure Name Priority Date/Time Associated Diagnosis Comments CBC WITH AUTO DIFFERENTIAL Routine 06/22/2025 12:40 PM CDT Infection associated with internal right knee prosthesis, subsequent encounter CBC WITH AUTO DIFFERENTIAL Routine 06/22/2025 12:40 PM CDT Infection associated with internal right knee prosthesis, subsequent encounter BUN Routine 06/22/2025 12:40 PM CDT Infection associated with internal right knee prosthesis, subsequent encounter CREATININE Routine 06/22/2025 12:40 PM CDT Infection associated with internal right knee prosthesis, subsequent encounter C-REACTIVE PROTEIN Routine 06/22/2025 12:40 PM CDT Infection associated with internal right knee prosthesis, subsequent encounter CBC WITH AUTO DIFFERENTIAL Routine 06/15/2025 2:15 PM CDT Infection associated with internal right knee prosthesis, subsequent encounter CBC WITH AUTO DIFFERENTIAL Routine 06/15/2025 2:15 PM CDT Infection associated with internal right knee prosthesis, subsequent encounter BUN Routine 06/15/2025 2:15 PM CDT Infection associated with internal right knee prosthesis, subsequent encounter CREATININE Routine 06/15/2025 2:15 PM CDT Infection associated with internal right knee prosthesis, subsequent encounter C-REACTIVE PROTEIN Routine 06/15/2025 2:15 PM CDT Infection associated with internal right knee prosthesis, subsequent encounter CBC WITH AUTO DIFFERENTIAL Routine 06/08/2025 10:26 AM CDT Infection associated with internal right knee prosthesis, subsequent encounter MSSA bacteremia C-REACTIVE PROTEIN Routine 06/08/2025 10:26 AM CDT Infection associated with internal right knee prosthesis, subsequent encounter MSSA bacteremia CREATININE Routine 06/08/2025 10:26 AM CDT Infection associated with internal right knee prosthesis, subsequent encounter MSSA bacteremia BUN Routine 06/08/2025 10:26 AM CDT Infection associated with internal right knee prosthesis, subsequent encounter MSSA bacteremia CBC WITH AUTO DIFFERENTIAL Routine 06/08/2025 10:26 AM CDT Infection associated with internal right knee prosthesis, subsequent encounter MSSA bacteremia INSERT PICC LINE Routine 05/29/2025 11:44 AM CDT GLUCOSE METER Timed 05/29/2025 11:38 AM CDT HEMOGLOBIN Early AM 05/29/2025 8:13 AM CDT MAGNESIUM Early AM 05/29/2025 8:13 AM CDT GLUCOSE METER Timed 05/29/2025 6:45 AM CDT GLUCOSE METER Timed 05/28/2025 11:03 PM CDT GLUCOSE METER Timed 05/28/2025 8:25 PM CDT GLUCOSE METER Timed 05/28/2025 5:22 PM CDT XR KNEE 2 VIEWS RIGHT PORTABLE SAMM 05/28/2025 5:01 PM CDT AFB CULTURE, STAIN Today 05/28/2025 1:20 PM CDT TISSUE CULTURE, STAIN (AEROBIC) Today 05/28/2025 1:20 PM CDT FUNGUS CULT, OTHER SOURCE Today 05/28/2025 1:20 PM CDT ANAEROBIC CULTURE Today 05/28/2025 1:20 PM CDT AFB CULTURE, STAIN Today 05/28/2025 1:16 PM CDT TISSUE CULTURE, STAIN (AEROBIC) Today 05/28/2025 1:16 PM CDT FUNGUS CULT, OTHER SOURCE Today 05/28/2025 1:16 PM CDT ANAEROBIC CULTURE Today 05/28/2025 1:16 PM CDT AEROBIC BACTERIAL CULTURE, STAIN Today 05/28/2025 12:57 PM CDT AFB CULTURE, STAIN Today 05/28/2025 12:57 PM CDT FUNGUS CULT, OTHER SOURCE Today 05/28/2025 12:57 PM CDT ANAEROBIC CULTURE Today 05/28/2025 12:57 PM CDT ENDOTRACHEAL TUBE Routine 05/28/2025 12:31 PM CDT ENDOTRACHEAL TUBE Routine 05/28/2025 12:31 PM CDT ENDOTRACHEAL TUBE Routine 05/28/2025 12:31 PM CDT ARTHROPLASTY REVISION KNEE Class D Urgent: Inpt requiring surgery 05/28/2025 11:40 AM CDT Infected prosthetic knee joint Case Notes ANESTHESIA TO ASSESS FOR SEDATIONSUPINE ON REGULAR TABLESTRYKER TRIATHLON PS/CR/MISCELLANEOUS SET/ALL POLY TIBIA/INHOUSEAQUAMANTYS/ACORN ESTEBAN/TPX WITH ACL BLADE3 GRAMS VANCO/3.6 TOBRA PER BATCH OF CEMENTWILL USE K-WIRES AND CEMENT FOR FEMORAL CANALCLEAN AND DIRTY SETUP BEDSIDE US STUDY ARCHIVE Routine 05/28/2025 10:52 AM CDT GLUCOSE METER Timed 05/28/2025 9:24 AM CDT BEDSIDE US STUDY ARCHIVE Routine 05/28/2025 6:42 AM CDT GLUCOSE METER Timed 05/28/2025 6:32 AM CDT CBC WITH AUTO DIFFERENTIAL Early AM 05/28/2025 6:21 AM CDT MAGNESIUM Early AM 05/28/2025 6:21 AM CDT CREATININE Early AM 05/28/2025 6:21 AM CDT POTASSIUM Early AM 05/28/2025 6:21 AM CDT SODIUM Early AM 05/28/2025 6:21 AM CDT CBC WITH AUTO DIFFERENTIAL Early AM 05/28/2025 6:21 AM CDT GLUCOSE METER Timed 05/27/2025 10:31 PM CDT MAGNESIUM Today 05/27/2025 4:40 PM CDT GLUCOSE METER Timed 05/27/2025 4:34 PM CDT GLUCOSE METER Timed 05/27/2025 11:47 AM CDT GLUCOSE METER Timed 05/27/2025 8:15 AM CDT GLUCOSE METER Timed 05/26/2025 9:42 PM CDT GLUCOSE METER Timed 05/26/2025 6:42 PM CDT ECHO TTE LIMITED W CONTRAST W COLOR W DOPPLER Routine 05/26/2025 4:08 PM CDT SCAN CORRESP-LABORATORY RESULTS 05/26/2025 1:22 PM CDT GLUCOSE METER Timed 05/26/2025 11:23 AM CDT GLUCOSE METER Timed 05/26/2025 6:36 AM CDT CREATININE Early AM 05/26/2025 6:25 AM CDT POTASSIUM Early AM 05/26/2025 6:25 AM CDT SODIUM Early AM 05/26/2025 6:25 AM CDT MAGNESIUM Early AM 05/26/2025 6:25 AM CDT GLUCOSE METER Timed 05/25/2025 9:50 PM CDT GLUCOSE METER Timed 05/25/2025 5:35 PM CDT GLUCOSE METER Timed 05/25/2025 11:30 AM CDT CREATININE Early AM 05/25/2025 8:22 AM CDT POTASSIUM Early AM 05/25/2025 8:22 AM CDT SODIUM Early AM 05/25/2025 8:22 AM CDT MAGNESIUM Early AM 05/25/2025 8:22 AM CDT GLUCOSE METER Timed 05/25/2025 7:44 AM CDT GLUCOSE METER Timed 05/24/2025 9:11 PM CDT GLUCOSE METER Timed 05/24/2025 4:53 PM CDT GLUCOSE METER Timed 05/24/2025 11:30 AM CDT GLUCOSE METER Timed 05/24/2025 7:11 AM CDT CBC WITH AUTO DIFFERENTIAL Early AM 05/24/2025 5:55 AM CDT MAGNESIUM Early AM 05/24/2025 5:55 AM CDT BLOOD CULTURE Today 05/24/2025 5:55 AM CDT CREATININE Early AM 05/24/2025 5:55 AM CDT POTASSIUM Early AM 05/24/2025 5:55 AM CDT SODIUM Early AM 05/24/2025 5:55 AM CDT CBC WITH AUTO DIFFERENTIAL Early AM 05/24/2025 5:55 AM CDT GLUCOSE METER Timed 05/23/2025 9:22 PM CDT GLUCOSE METER Timed 05/23/2025 6:18 PM CDT MR SPINE LUMBAR WWO Routine 05/23/2025 6:14 PM CDT GLUCOSE METER Timed 05/23/2025 11:12 AM CDT CBC WITH AUTO DIFFERENTIAL Early AM 05/23/2025 10:43 AM CDT BLOOD CULTURE Today 05/23/2025 10:43 AM CDT BLOOD CULTURE Today 05/23/2025 10:43 AM CDT VANCOMYCIN TROUGH Timed 05/23/2025 10:43 AM CDT MAGNESIUM Early AM 05/23/2025 10:43 AM CDT CREATININE Early AM 05/23/2025 10:43 AM CDT POTASSIUM Early AM 05/23/2025 10:43 AM CDT SODIUM Early AM 05/23/2025 10:43 AM CDT CBC WITH AUTO DIFFERENTIAL Early AM 05/23/2025 10:43 AM CDT GLUCOSE METER Timed 05/23/2025 6:48 AM CDT GLUCOSE METER Timed 05/22/2025 9:12 PM CDT GLUCOSE METER Timed 05/22/2025 5:24 PM CDT XR ASPIRATION KNEE JOINT RIGHT Routine 05/22/2025 1:13 PM CDT FUNGUS CULT, OTHER SOURCE Today 05/22/2025 1:11 PM CDT ANAEROBIC CULTURE Today 05/22/2025 1:11 PM CDT BODY FLUID CULTURE,STAIN (AEROBIC) Today 05/22/2025 1:11 PM CDT BODY FLUID CELL COUNT/DIF Today 05/22/2025 1:11 PM CDT SCAN CORRESP-EKG RESULTS 05/22/2025 12:12 PM CDT SCAN CORRESP-LABORATORY RESULTS 05/22/2025 12:12 PM CDT SCAN CORRESP-IMAGING 05/22/2025 12:12 PM CDT SCAN CORRESP-LABORATORY RESULTS 05/22/2025 12:09 PM CDT GLUCOSE METER Timed 05/22/2025 10:56 AM CDT BLOOD CULTURE Today 05/22/2025 10:14 AM CDT BLOOD CULTURE Today 05/22/2025 10:14 AM CDT GLUCOSE METER Timed 05/22/2025 6:40 AM CDT WHITE BLOOD COUNT Early AM 05/22/2025 6:35 AM CDT MAGNESIUM Early AM 05/22/2025 6:35 AM CDT CREATININE Early AM 05/22/2025 6:35 AM CDT GLUCOSE METER Timed 05/21/2025 8:46 PM CDT SCAN-CARDIAC STRIP 05/21/2025 12:00 AM CDT PERIPHERAL BLOCK Routine 04/15/2025 5:52 PM CDT XR KNEE 2 VIEWS RIGHT PORTABLE SAMM 04/15/2025 5:32 PM CDT SPINAL BLOCK Routine 04/15/2025 3:15 PM CDT SPINAL BLOCK Routine 04/15/2025 3:15 PM CDT PERIPHERAL BLOCK Routine 04/15/2025 3:10 PM CDT PERIPHERAL BLOCK Routine 04/15/2025 3:09 PM CDT AK ARTHRP KNE CONDYLE&PLATU MEDIAL&LAT COMPARTMENTS Tier 4: [...] region with neurogenic claudication Lumbar foraminal stenosis US ABD AORTA SCREENING Routine 08/27/2023 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 WHITE BLOOD COUNT 6.5 4.5 - 11.0 thou/cu mm 06/22/2025 2:49 PM [facility] RED BLOOD COUNT 3.74(L) 4.30 - 5.90 mil/cu mm 06/22/2025 2:49 PM [facility] HEMOGLOBIN 11.5(L) 13.5 - 17.5 g/dL 06/22/2025 2:49 PM [facility] HEMATOCRIT 36.0(L) 37.0 - 53.0 % 06/22/2025 2:49 PM [facility] MCV 96 80 - 100 fL 06/22/2025 2:49 PM [facility] MCH 30.7 26.0 - 34.0 pg 06/22/2025 2:49 PM [facility] MCHC 31.9(L) 32.0 - 36.0 g/dL 06/22/2025 2:49 PM [facility] RDW 14.9 11.5 - 15.5 % 06/22/2025 2:49 PM [facility] PLATELET COUNT 213 140 - 440 thou/cu mm 06/22/2025 2:49 PM [facility] MPV 12.0(H) 6.5 - 11.0 fL 06/22/2025 2:49 PM [facility] % NEUT 65.3 % 06/22/2025 2:49 PM [facility] % LYMPH 18.5 % 06/22/2025 2:49 PM [facility] % MONO 8.6 % 06/22/2025 2:49 PM [facility] % EOS 7.0 % 06/22/2025 2:49 PM CDT [facility] % BASO 0.6 % 06/22/2025 2:49 PM CDT [facility] ABSOLUTE NEUTROPHILS 4.3 1.7 - 7.0 thou/cu mm 06/22/2025 2:49 PM CDT [facility] ABSOLUTE LYMPHOCYTES 1.2 0.9 - 2.9 thou/cu mm 06/22/2025 2:49 PM CDT [facility] ABSOLUTE MONOCYTES 0.6 <0.9 thou/cu mm 06/22/2025 2:49 PM CDT [facility] ABSOLUTE EOSINOPHILS 0.5(H) <0.5 thou/cu mm 06/22/2025 2:49 PM CDT [facility] ABSOLUTE BASOPHILS 0.0 <0.3 thou/cu mm 06/22/2025 2:49 PM CDT [facility] Blood BLOOD SPECIMEN / Unknown Non-Lab Venipuncture / Unknown 06/22/2025 12:40 PM CDT 06/22/2025 1:58 PM CDT Jonathan Klein MD HEMATOLOGY Final Res ult Performing Organization Address [facility] de Phone Number [facility] [address] [place] [address] * (ABNORMAL) BUN (06/22/2025 12:40 PM CDT) Only the most recent of3 resultswithin the time period is included. BUN 28(H) 8 - 23 mg/dL 06/22/2025 2:32 PM CDT [facility] Blood BLOOD SPECIMEN / Unknown Non-Lab Venipuncture / Unknown 06/22/2025 12:40 PM CDT 06/22/2025 1:58 PM CDT Jonathan Klein MD CHEMISTRY Final Res ult Performing Organization Address [facility] de Phone Number [facility] [address] [place] [address] * (ABNORMAL) CREATININE (06/22/2025 12:40 PM CDT) Only the most recent of9 resultswithin the time period is included. Pathologist [facility] eGFR 81(L) >90 mL/min/1.7 3m2 06/22/2025 2:32 PM CDT [facility] Comment:As of 2021, eG FR is calculated by the CKD-EPI creatinine equation without race adjustment. eGFR can be influenced by muscle mass, exercise, and diet. The reported eGFR is an estimation only and is only applicable if the renal function is stable. CREATININE 1.02 0.70 - 1.20 mg/dL 06/22/2025 2:32 PM CDT [facility] Blood BLOOD SPECIMEN / Unknown Non-Lab Venipuncture / Unknown 06/22/2025 12:40 PM CDT 06/22/2025 1:58 PM CDT Jonathan Klein MD CHEMISTRY Final Res ult [facility] [address] [place] [address] * (ABNORMAL) C-REACTIVE PROTEIN (06/22/2025 12:40 PM CDT) Only the most recent of3 resultswithin the time period is included. Pathologist [facility] C-REACTIVE PROTEIN 0.8(H) <0.5 mg/dL 06/22/2025 2:32 PM CDT [facility] Blood BLOOD SPECIMEN / Unknown Non-Lab Venipuncture / Unknown 06/22/2025 12:40 PM CDT 06/22/2025 1:58 PM CDT Jonathan Klein MD CHEMISTRY Final Res ult [facility] [address] [place] [address] * INSERT PICC LINE (05/29/2025 11:44 AM CDT) Narrative Hood, Srinath G, RN - 05/29/2025 11:44 AM CDT Srinath Hood RN 05/29/2025 11:45 AM PICC Line Insertion Note 05/29/2025 11:45 AM Procedure education reviewed: Placement procedure, Benefits, Risks, Complications, and Questions answered, discussed with: Patient face to face. Patient face to face confirms understanding of procedure. Wood Technologist used: No Reason for insertion: IV antibiotics and MD order Medical/ Surgical/ Allergies History reviewed: Yes. Preprocedure Verification: Yes 1) Provider Order verified 2) Patient identity verified; 3) side/site/procedure confirmed; 4) relevant information/documentation available, reviewed and properly matched to the patient; 5) For PICC insertions, consent accurate and complete or verified provider has ordered emergent placement; 6) equipment and supplies available Site Marking: Yes Site marked if not in continuous attendance with the patient Time Out: Yes Time out was conducted just prior to starting procedure to verify the four required elements: 1) patient name and date of 2) confirmation that the correct side/site are marked if applicable, including visualization of the site nessa 3) name of procedure including laterality if applicable, and 4) essential imaging and results are properly labeled and appropriately displayed, if applicable. Site assessment pre-insertion: Intact. Local anesthetic used at site: Yes, 1% Lidocaine. The following Central Line Insertion Checklist was used: Hand Hygiene: Yes Maximal Barrier Precautions including Sterile Gown, Hat and Mask: Yes Full Body Drape: Yes Site cleansed with: Chlorhexidine gluconate prep. PICC Line 1 Lumen Left;Basilic;Upper Arm PICC/SVC (Active) 05/29/25 1144 Left;Basilic;Upper Arm Vessel Diameter: 0.46 Eoqborlg-de-Ypxh Ratio (%): Visible Catheter Length (cm): 0 cm Placed/Present Prior to Encounter: (IA) Placed Prior to Admission?: Type: Valved Catheter (IA) Size: Tip Location: PICC/SVC PICC Mid-Arm Circumference (cm): 37 cm Total Length of Catheter (cm): 45 cm Insertion Attempts: 1 (IA) Insertion Attempts: Local Anesthetic: Injectable Placement Verification: ECG Removed Catheter Length (cm): Removed/Resolved Prior to Encounter: Visible Catheter Length (cm) 0 cm 05/29/25 1144 Arm Circumference (cm) 37 cm 05/29/25 1144 Status Lumen One Blood Return;Cap Changed;Capped/Locked 05/29/25 1144 Line Assessment Antimicrobial patch and dressing clean/dry/intact 05/29/25 1144 Site Description Dry/Flat 05/29/25 1144 Line Intervention New dressing applied and NO hemostatic agent/gauze 05/29/25 1144 Dressing change due date 06/05/2025 05/29/25 1144 Line Director Of Resource Development Name: Bard Line Type: Valved Power PICC Lot Number: [id number] Access Assistance:Modified Seldinger Technique (Micro-Introducer) WITHOUT Dermatotomy (skin nevaeh), Ultrasound Guidance, and Tip confirmation system/ECG Post-insertion: Able to remove guidewire: Smoothly. Able to aspirate blood in each lumen: Yes Able to flush catheter without resistance in each lumen: Yes Each lumen flushed with: 20 ml(s) of 0.9% saline, and no Heparin. Cap applied to each lumen: Yes Line secured with: Stat-Lock Hospital dressing policy/procedure followed. PICC Line standing orders implemented: Yes X- ray pending: No, tip confirmed with ECG Insertion complications: None Patient tolerated the procedure: Yes PICC education reviewed: Given to patient Wilmer Valenzuela MD IV ORD Final Resul t * (ABNORMAL) GLUCOSE METER (05/29/2025 11:38 AM CDT) Only the most recent of33 resultswithin the time period is included. GLUCOSE METER 139(H) 65 - 100 mg/dL 05/29/2025 11:41 AM CDT [facility] Blood BLOOD SPECIMEN / Unknown 05/29/2025 11:38 AM CDT 05/29/2025 11:41 AM CDT Wilmer Valenzuela MD CHEMISTRY Final Resul t [facility] [address] [place] [address], [place] * (ABNORMAL) HEMOGLOBIN (05/29/2025 8:13 AM CDT) HEMOGLOBIN 10.0(L) 13.5 - 17.5 g/dL 05/29/2025 9:07 AM CDT [facility] MCV 96 80 - 100 fL 05/29/2025 9:07 AM CDT [facility] Blood BLOOD SPECIMEN / Unknown Venipuncture / Unknown 05/29/2025 8:13 AM CDT 05/29/2025 8:39 AM CDT us Wilmer Valenzuela MD HEMATOLOGY Final Resul t Performing Organization Address City/[facility] Co de Phone Number [facility] [address] [address], [place] * MAGNESIUM (05/29/2025 8:13 AM CDT) Only the most recent of9 resultswithin the time period is included. MAGNESIUM 1.6 1.6 - 2.4 mg/dL 05/29/2025 9:20 AM CDT [facility] Blood BLOOD SPECIMEN / Unknown Venipuncture / Unknown 05/29/2025 8:13 AM CDT 05/29/2025 8:39 AM CDT us Eva Garcia RN CHEMISTRY Final Result Performing Organization Address [facility] Co de Phone Number [facility] [address] [address], [place] * XR KNEE 2 VIEWS RIGHT PORTABLE (05/28/2025 5:01 PM CDT) Only the most recent of2 resultswithin the time period is included. Anatomical Region Laterality Modality KNEE R Digital Radiogra phy 05/29/2025 6:11 AM CDT Impressions 05/29/2025 6:11 AM CDT Postprocedural right knee. See procedure note for details. No complication seen. Dictated by Isabelle Taylor MD @ 05/29/2025 6:11:21 AM (Electronically Signed) Narrative 05/29/2025 6:11 AM CDT For Patients: As a result of the Cures Act, medical imaging exams and procedure reports are released immediately into your electronic medical record. You may view this report before your referring provider. If you have questions, please contact your health care provider. INDICATION: Postoperative evaluation COMPARISON: 04/15/2025 TECHNIQUE: Two view right knee. FINDINGS: Right knee arthroplasty antibiotic spacer and antibiotic packing material in the joint. Procedure Note Isabelle Taylor MD - 05/29/2025 For Patients: As a result of the Cures Act, medical imagingexams and procedure reports are released immediately into your electronicmedical record. You may view this report before your referring provider.If you have questions, please contact your health care provider. INDICATION: Postoperative evaluation COMPARISON: 04/15/2025 TECHNIQUE: Two view right knee. FINDINGS: Right knee arthroplasty antibiotic spacer and antibiotic packing materialin the joint. IMPRESSION: Postprocedural right knee. See procedure note for details. No complicationseen. Dictated by Isabelle Taylor MD @ 05/29/2025 6:11:21 AM (Electronically Signed) [facility] Final R esult * TISSUE CULTURE, STAIN (AEROBIC) (05/28/2025 1:20 PM CDT) Only the most recent of2 resultswithin the time period is included. CULTURE No Growth. 06/02/2025 9:29 AM CDT [facility] GRAM STAIN No PMNs 06/02/2025 9:29 AM CDT [facility] GRAM STAIN 4+ RBCs 06/02/2025 9:29 AM CDT [facility] GRAM STAIN No Epithelial cells 06/02/2025 9:29 AM CDT [facility] GRAM STAIN No organisms seen 06/02/2025 9:29 AM CDT [facility] Tissue (Right Knee) Non-Blood / Unknown 05/28/2025 1:20 PM CDT 05/28/2025 3:44 PM CDT Narrative [facility] - 06/02/2025 9:29 AM CDT Rishabh Hernandez DO MICROBIOLOGY Final Resu lt Performing Organization Address City/[facility]/ZIP Co de Phone Number [facility] [address] [place] [address], [place] * FUNGUS CULT, OTHER SOURCE (05/28/2025 1:20 PM CDT) Only the most recent of4 resultswithin the time period is included. CULTURE No Fungus isolated. 06/26/2025 10:56 AM CDT [facility] Tissue (Right Knee) Non-Blood / Unknown 05/28/2025 1:20 PM CDT 05/28/2025 3:44 PM CDT Rishabh John Hernandez DO MICROBIOLOGY Final Resu lt Performing Organization Address [facility] Co de Phone Number [facility] [address] [place] [address], [place] * ANAEROBIC CULTURE (05/28/2025 1:20 PM CDT) Only the most recent of4 resultswithin the time period is included. CULTURE No anaerobes isolated 06/11/2025 11:10 AM CDT [facility] Tissue (Right Knee) Non-Blood / Unknown 05/28/2025 1:20 PM CDT 05/28/2025 3:44 PM CDT Rishabh Hernandez DO MICROBIOLOGY Final Resu lt Performing Organization Address [facility]/ZIP Co de Phone Number [facility] [address] [place] [address], [place] * AEROBIC BACTERIAL CULTURE, STAIN (05/28/2025 12:57 PM CDT) CULTURE No Growth. 06/02/2025 9:41 AM CDT [facility] GRAM STAIN 2+ PMNs 06/02/2025 9:41 AM CDT [facility] GRAM STAIN 3+ RBCs 06/02/2025 9:41 AM CDT [facility] GRAM STAIN No Epithelial cells 06/02/2025 9:41 AM CDT [facility] GRAM STAIN No organisms seen 06/02/2025 9:41 AM CDT [facility] Swab (Right Knee) Non-Blood / Unknown 05/28/2025 12:57 PM CDT 05/28/2025 3:39 PM CDT Narrative [facility] - 06/02/2025 9:41 AM CDT Rishabh Hernandez DO MICROBIOLOGY Final Resu lt [facility] [address] [place] [id number], * [facility] TUBE PR1, [facility] INSTRUMENT DISP PR10, [facility] STYLET PR1 (05/28/2025 12:31 PM CDT) Narrative Daylin Yeh CRNA - 05/28/2025 12:31 PM CDT Daylin Yeh CRNA 05/28/2025 12:32 PM Procedure: ETT Patient location during procedure: OR ETT Properties Mask Ventilation: not attempted Final Technique: video laryngoscopy Type: straight Location: oral Cuffed: yes Tube Size: 7.5 mm Stylet: yes Laryngoscope Blade: Glidescope Blade Size: 3 Cormack-Lehane Grade View: 1 Insertion Attempts: 1 Placement Verification: auscultation, end tidal CO2 and symmetrical chest wall movement Assessment: pharynx clear, atraumatic and dentition unchanged Secured at: 23 Measured From: teeth Difficulty: 0 (not difficult) Caryl Varner MD ANESTHESIA PX NOTE NUBIA LOWE Final Result * (ABNORMAL) SODIUM (05/28/2025 6:21 AM CDT) Only the most recent of5 resultswithin the time period is included. SODIUM 133(L) 136 - 145 mmol/L 05/28/2025 7:27 AM CDT [facility] Blood BLOOD SPECIMEN / Unknown Butterfly / Unknown 05/28/2025 6:21 AM CDT 05/28/2025 6:47 AM CDT Gisela Marlow MD CHEMISTRY Final Result Performing Organization Address [facility] Co de Phone Number [facility] [address] [address], [place] * (ABNORMAL) POTASSIUM (05/28/2025 6:21 AM CDT) Only the most recent of5 resultswithin the time period is included. POTASSIUM 3.4(L) 3.5 - 5.1 mmol/L 05/28/2025 7:27 AM CDT [facility] Blood BLOOD SPECIMEN / Unknown Butterfly / Unknown 05/28/2025 6:21 AM CDT 05/28/2025 6:47 AM CDT us Gisela Marlow MD CHEMISTRY Final Result Performing Organization Address [facility] Co de Phone Number [facility] [address] [address], [place] * ECHO TTE LIMITED W CONTRAST W COLOR W DOPPLER (05/26/2025 4:08 PM CDT) AORTIC VALVE MEAN PG 5 mmHg EJECTION FRACTION 76 % LVEDD 5.3 cm Anatomical Region Laterality Modality Ultrasound 05/26/2025 9:40 AM CDT Narrative 05/26/2025 5:15 PM CDT ECHOCARDIOGRAM CASSIE RIVAS JR. : 1960 64 years Study Date: 05/26/2025 9:40:37 AM Gender: M BP: 175/81 mmHg Height: 188.00 cm BSA: 2.65 m Weight: 145.00 kg Tech: SAVI/NK Referring MD: CELESTINO NIELSEN Site: [facility] Reading Location: [facility] IP Patient Location: Inpatient. Procedure: Limited Echo w/ Contrast, Color Doppler and Limited Spectral Doppler. Indication for study: Endocarditis Cardiac Rhythm: Normal sinus.Study quality: Fair. Imaging limitations: This study was subject to imaging limitations due to body habitus. Final Impressions: Limited Echocardiogram performed 1. Normal left ventricular size, normal wall thickness, hyperdynamic global systolic function, calculated EF of 76 %. 2. Moderately enlarged left atrium. 3. Right ventricular cavity size is normal, global systolic RV function is normal. 4. The aortic valve is trileaflet and sclerotic, no stenosis and trivial regurgitation. 5. The mitral valve is sclerotic, trace mitral regurgitation. 6. Dilated sinus of Valsalva, diameter of 4.4 cm (upper limit of normal for age, sex, and BSA is 4.2 cm*), Height Index 2.34 cm/m. 7. Echo contrast was administered to enhance visualization of all left ventricular segments. 8. Clinical correlation is required. No significant functional valve abnormalities, but small valvular vegetations cannot be ruled out on this transthoracic study. Chamber Sizes and Function Normal left ventricular size, normal wall thickness, hyperdynamic global systolic function, calculated EF of 76 %. No resting regional wall motion abnormality visualized. Left atrial size is moderately enlarged. Right ventricular cavity size is normal, global systolic RV function is normal. The right atrium is normal. The pulmonary artery is not well visualized. The sinus of Valsalva is dilated. The ascending aorta is not well visualized. Valves, RV Pressures and Diastolic Function The aortic valve is trileaflet and sclerotic, no stenosis and trivial regurgitation. The mitral valve is sclerotic, trace mitral regurgitation. The mitral valve peak velocity is 1.27 m/s and the mean gradient is 3.0 mmHg. Moderate mitral annular calcification is present. Indeterminate pattern of LV diastolic filling. The tricuspid valve is normal in structure, trace tricuspid regurgitation. Unable to assess right ventricular systolic pressure. The pulmonic valve is normal. Trace pulmonic regurgitation is present on color flow. Masses, Effusion, Shunts There is no pericardial effusion. The inferior vena cava is normal sized, respiratory size variation greater than 50%. No left to right shunting was detected by limited color flow Doppler interrogation of the interatrial septum. MEASUREMENTS AND CALCULATIONS 2-D Measurements and LV Function: LVID (d) 5.3 cm Planimetered EF 76 % LVID (s) 2.6 cm LV FS% (2D) 51 % IVS (d) 1.0 cm LVOT diameter 2.3 cm LVPW (d) 1.0 cm HR 67 bpm Ao Sinus 4.4 cm LA Vol index 46 ml/m2 Ao Sinus ULN 4.2 cm * RV Basal Diam 4.1 cm Asc Ao ULN 4.2 cm * RV Mid Diam 2.7 cm * Input BSA outside of range, reported values correspond to BSA = 2.1 Aortic Valve: Vmax 1.5 m/s DEMARCO (V) 3.91 cm VTI 0.34 m DEMARCO (I) 4.17 cm LVOT V max 1.4 m/s Max PG 9 mmHg LVOT VTI 0.34 m Mean PG 5 mmHg SV 143 ml Dim Index 1.00 SV index 54 ml/m CO 9.5 l/min CI 3.6 l/min/m Mitral Valve: MV Mean G 3 mmHg Tricuspid Valve and estimated PA pressures: TAPSE 2.9 cm Contrast documentation: 2mls ml diluted Definity, lot #[id number], [facility]# [id number] was administered peripherally to enhance visualization of all left ventricular segments. . This study was interpreted by an [facility] accredited facility. Final Procedure Note Tong Nino MD - 05/26/2025 ECHOCARDIOGRAM CASSIE RIVAS JR. : 1960 64 years Study Date: 05/26/2025 9:40:37 AM Gender: M BP: 175/81 mmHg Height: 188.00 cm BSA: 2.65 m Weight: 145.00 kg Tech: SAVI/NK Referring MD: CELESTINO NIELSEN Site: [facility] Reading Location: [facility] Patient Location: Inpatient. Procedure: Limited Echo w/ Contrast, Color Doppler and Limited SpectralDoppler. Indication for study: Endocarditis Cardiac Rhythm: Normal sinus.Study quality: Fair. Imaging limitations: This study was subject to imaging limitations due tobody habitus. Final Impressions: Limited Echocardiogram performed 1. Normal left ventricular size, normal wall thickness, hyperdynamicglobal systolic function, calculated EF of 76 %. 2. Moderately enlarged left atrium. 3. Right ventricular cavity size is normal, global systolic RV functionis normal. 4. The aortic valve is trileaflet and sclerotic, no stenosis and trivialregurgitation. 5. The mitral valve is sclerotic, trace mitral regurgitation. 6. Dilated sinus of Valsalva, diameter of 4.4 cm (upper limit of normalfor age, sex, and BSA is 4.2 cm*), Height Index 2.34 cm/m. 7. Echo contrast was administered to enhance visualization of all leftventricular segments. 8. Clinical correlation is required. No significant functional valveabnormalities, but small valvular vegetations cannot be ruled out on thistransthoracic study. Chamber Sizes and Function Normal left ventricular size, normal wall thickness, hyperdynamic globalsystolic function, calculated EF of 76 %. No resting regional wall motionabnormality visualized. Left atrial size is moderately enlarged. Rightventricular cavity size is normal, global systolic RV function is normal.The right atrium is normal. The pulmonary artery is not well visualized.The sinus of Valsalva is dilated. The ascending aorta is not wellvisualized. Valves, RV Pressures and Diastolic Function The aortic valve is trileaflet and sclerotic, no stenosis and trivialregurgitation. The mitral valve is sclerotic, trace mitral regurgitation.The mitral valve peak velocity is 1.27 m/s and the mean gradient is 3.0mmHg. Moderate mitral annular calcification is present. Indeterminatepattern of LV diastolic filling. The tricuspid valve is normal instructure, trace tricuspid regurgitation. Unable to assess rightventricular systolic pressure. The pulmonic valve is normal. Tracepulmonic regurgitation is present on color flow. Masses, Effusion, Shunts There is no pericardial effusion. The inferior vena cava is normal sized,respiratory size variation greater than 50%. No left to right shunting wasdetected by limited color flow Doppler interrogation of the interatrialseptum. MEASUREMENTS AND CALCULATIONS 2-D Measurements and LV Function: LVID (d) 5.3 cm Planimetered EF 76% LVID (s) 2.6 cm LV FS% (2D) 51% IVS (d) 1.0 cm LVOT diameter2.3 cm LVPW (d) 1.0 cm HR 67bpm Ao Sinus 4.4 cm LA Vol index 46ml/m2 Ao Sinus ULN 4.2 cm * RV Basal Diam4.1 cm Asc Ao ULN 4.2 cm * RV Mid Diam2.7 cm * Input BSA outside of range, reported values correspond to BSA = 2.1 Aortic Valve: Vmax 1.5 m/s DEMARCO (V) 3.91 cm VTI 0.34 m DEMARCO (I) 4.17 cm LVOT V max 1.4 m/s Max PG 9 mmHg LVOT VTI 0.34 m Mean PG 5 mmHg SV 143 ml Dim Index 1.00 SV index 54 ml/m CO 9.5 l/min CI 3.6 l/min/m Mitral Valve: MV Mean G 3 mmHg Tricuspid Valve and estimated PA pressures: TAPSE 2.9 cm Contrast documentation: 2mls ml diluted Definity, lot #[id number], [facility]#[id number] was administered peripherally to enhance visualization of allleft ventricular segments. . This study was interpreted by an [facility] accredited facility. Final us Celestino Nielsen MD ECHO ORD Final R esult * SCAN CORRESP-LABORATORY RESULTS (05/26/2025 1:22 PM CDT) Only the most recent of3 resultswithin the time period is included. Narrative 05/26/2025 1:22 PM CDT Ordered by an unspecified provider. us Other Clinical Staff OTHER Final Resul t * BLOOD CULTURE DAILY (05/24/2025 5:55 AM CDT) CULTURE No Growth. 05/29/2025 8:27 AM CDT [facility] Blood BLOOD SPECIMEN / Unknown Venipuncture / Unknown 05/24/2025 5:55 AM CDT 05/24/2025 6:17 AM CDT Narrative [facility] - 05/29/2025 8:27 AM CDT Low volume blood culture received; possible false negative culture. us Celestino Nielsen MD MICROBIOLOGY Final R esult [facility] [address] [place] [address], * MR SPINE LUMBAR W/WO CONTRAST (05/23/2025 6:14 PM CDT) Anatomical Region Laterality Modality Spine, LUMBAR SPINE Magnetic Res onance 05/23/2025 11:0 7 PM CDT Narrative 05/23/2025 11:07 PM CDT For Patients: As a result of the Century Cures Act, medical imaging exams and procedure reports are released immediately into your electronic medical record. You may view this report before your referring provider. If you have questions, please contact your health care provider. Indication: Low back pain. Infection suspected. Technique: Noncontrast sagittal and axial T1, T2, and sagittal STIR sequences are provided. Postcontrast sagittal and axial T1 weighted images were obtained after administration of 20 cc gadolinium based IV contrast. Comparison: MRI 06/11/2023 Findings: Transitional lumbosacral anatomy. For purposes of this exam, the transitional segment is designated S1 and demonstrates lumbarization. Slight dextrocurvature of the lumbar spine on this supine nonweightbearing study. Sagittal alignment and lumbar lordosis is maintained. Chronic mild L1 superior endplate compression fracture. There is multilevel small diffusely increased background T1 marrow signal intensity may be secondary to osseous demineralization. No suspicious marrow replacing lesions. Modic type 2 endplate degenerative changes and L5-S1 and L4-5. Multilevel small chronic Schmorl`s nodes. The conus medullaris is normal in signal and located at L1-2. Epidural lipomatosis is most prominent at L3-4 through the sacral hiatus. T12-L1: No spinal canal or neural foraminal narrowing. Prominent epidural fat and left lateral recess. L1-2: Moderate disc degeneration. Epidural lipomatosis. Mild posterior disc bulge. Rvkb-bz-nrbyhiyi thecal sac narrowing. No neural foraminal narrowing. L2-3: Epidural lipomatosis. Normal disc. Mild facet arthropathy. Mild thecal sac narrowing. No neural foraminal narrowing. L3-4: Ldfn-pp-twwimbts disc degeneration and disc desiccation. Shallow posterior disc bulge. Epidural lipomatosis. Xwlt-lc-eftzdzrv facet arthropathy. Mild-moderate thecal sac narrowing. Minimal bilateral neural foraminal narrowing. L4-5: Advanced disc degeneration and disc height loss with disc desiccation. Posterior disc bulging endplate spondylitic ridging. Epidural lipomatosis. Moderate facet joint arthropathy and thickening of the ligamentum flavum. Severe thecal sac narrowing. Mild bilateral neural foramina narrowing. L5-S1: Trace retrolisthesis. Advanced disc degeneration and disc height loss. Posterior disc bulging and endplate spondylitic ridging eccentric to the right. Epidural lipomatosis. Moderate facet arthropathy and facet joint effusions. Severe thecal sac effacement. Moderate right and mild left neural foraminal narrowing. Possible impingement of the exiting right L5 nerve roots. S1-2: Transitional segment. Mild disc degeneration. Mild facet arthropathy. Epidural lipomatosis effaces the thecal sac. No neural foraminal narrowing. Sacroiliac joint degenerative changes. Atrophy of paraspinal muscles and gluteus shilpi muscles. Impression : 1. 1. Transitional lumbosacral anatomy. For purposes of this exam, the transitional segment is designated S1 and demonstrates lumbarization. 2. Multilevel lumbar spondylosis superimposed on epidural lipomatosis, without significant change compared to the prior exam. 3. At L3-4, epidural lipomatosis moderately narrows the thecal sac. 3. At L4-5, epidural lipomatosis severely effaces the thecal sac. Mild neural foraminal narrowing. 4. At L5-S1, epidural lipomatosis severely effaces the thecal sac. Moderate right and mild left neural foraminal narrowing. 5. No acute osseous abnormality. Chronic L1 mild compression fracture. 6. No pathologic enhancement. Dictated by Que Fortune MD @ 05/23/2025 11:07:59 PM (Electronically Signed) Procedure Note Que Fortune MD - 05/23/2025 For Patients: As a result of the 21st Century Cures Act, medical imagingexams and procedure reports are released immediately into your electronicmedical record. You may view this report before your referring provider.If you have questions, please contact your health care provider. Indication: Low back pain. Infection suspected. Technique: Noncontrast sagittal and axial T1, T2, and sagittal STIR sequences areprovided. Postcontrast sagittal and axial T1 weighted images were obtainedafter administration of 20 cc gadolinium based IV contrast. Comparison: MRI 06/11/2023 Findings: Transitional lumbosacral anatomy. For purposes of this exam, thetransitional segment is designated S1 and demonstrates lumbarization. Slight dextrocurvature of the lumbar spine on this supine nonweightbearingstudy. Sagittal alignment and lumbar lordosis is maintained. Chronic mildL1 superior endplate compression fracture. There is multilevel smalldiffusely increased background T1 marrow signal intensity may be secondaryto osseous demineralization. No suspicious marrow replacing lesions. Modictype 2 endplate degenerative changes and L5-S1 and L4-5. Multilevel smallchronic Schmorl`s nodes. The conus medullaris is normal in signal andlocated at L1-2. Epidural lipomatosis is most prominent at L3-4 throughthe sacral hiatus. T12-L1: No spinal canal or neural foraminal narrowing. Prominent epiduralfat and left lateral recess. L1-2: Moderate disc degeneration. Epidural lipomatosis. Mild posteriordisc bulge. Prav-ru-tqdgcnlt thecal sac narrowing. No neural foraminalnarrowing. L2-3: Epidural lipomatosis. Normal disc. Mild facet arthropathy. Mildthecal sac narrowing. No neural foraminal narrowing. L3-4: Hhus-pp-xqsdukqr disc degeneration and disc desiccation. Shallowposterior disc bulge. Epidural lipomatosis. Oums-bm-qqinivzy facetarthropathy. Mild-moderate thecal sac narrowing. Minimal bilateral neuralforaminal narrowing. L4-5: Advanced disc degeneration and disc height loss with discdesiccation. Posterior disc bulging endplate spondylitic ridging.Epidural lipomatosis. Moderate facet joint arthropathy and thickening ofthe ligamentum flavum. Severe thecal sac narrowing. Mild bilateral neuralforamina narrowing. L5-S1: Trace retrolisthesis. Advanced disc degeneration and disc heightloss. Posterior disc bulging and endplate spondylitic ridging eccentric tothe right. Epidural lipomatosis. Moderate facet arthropathy and facetjoint effusions. Severe thecal sac effacement. Moderate right and mildleft neural foraminal narrowing. Possible impingement of the exiting rightL5 nerve roots. S1-2: Transitional segment. Mild disc degeneration. Mild facetarthropathy. Epidural lipomatosis effaces the thecal sac. No neuralforaminal narrowing. Sacroiliac joint degenerative changes. Atrophy of paraspinal muscles andgluteus shilpi muscles. Impression : 1. 1. Transitional lumbosacral anatomy. For purposes of this exam, thetransitional segment is designated S1 and demonstrates lumbarization. 2. Multilevel lumbar spondylosis superimposed on epidural lipomatosis,without significant change compared to the prior exam. 3. At L3-4,epidural lipomatosis moderately narrows the thecal sac. 3. At L4-5, epidural lipomatosis severely effaces the thecal sac. Mildneural foraminal narrowing. 4. At L5-S1, epidural lipomatosis severely effaces the thecal sac.Moderate right and mild left neural foraminal narrowing. 5. No acute osseous abnormality. Chronic L1 mild compression fracture. 6. No pathologic enhancement. Dictated by Que Fortune MD @ 05/23/2025 11:07:59 PM (Electronically Signed) us Celestino Nielsen MD MR Final R esult * BLOOD CULTURE (05/23/2025 10:43 AM CDT) Only the most recent of4 resultswithin the time period is included. CULTURE No Growth. 05/28/2025 11:54 AM CDT [facility] Blood BLOOD SPECIMEN / Unknown Butterfly / Unknown 05/23/2025 10:43 AM CDT 05/23/2025 11:29 AM CDT Narrative [facility] - 05/28/2025 11:54 AM CDT Low volume blood culture received; possible false negative culture. Gisela Marlow MD MICROBIOLOGY Final Result [facility] [address] [place] [address], * VANCOMYCIN TROUGH (05/23/2025 10:43 AM CDT) VANCOMYCIN,TRO UGH 16.1 7.0 - 20.0 ug/mL 05/23/2025 12:49 PM CDT [facility] DATE OF LAST DOSE,TROUGH Not given 05/23/2025 12:49 PM CDT [facility] TIME OF LAST DOSE,TROUGH Not given 05/23/2025 12:49 PM CDT [facility] Blood BLOOD SPECIMEN / Unknown Butterfly / Unknown 05/23/2025 10:43 AM CDT 05/23/2025 11:29 AM CDT us Gisela Marlow MD CHEMISTRY Final Result [facility] [address] [place] [address], [place] * XR ASPIRATION KNEE JOINT RIGHT (05/22/2025 1:13 PM CDT) Anatomical Region Laterality Modality KNEE R Digital Radiogra phy 05/22/2025 1:18 PM CDT Impressions 05/22/2025 1:18 PM CDT : Successful right knee intra-articular joint aspiration. Dictated by Greg Gaston MD @ May 22 2025 1:18PM (Electronically Signed) [email or web address] Narrative 05/22/2025 1:18 PM CDT For Patients: As a result of the Cures Act, medical imaging exams and procedure reports are released immediately into your electronic medical record. You may view this report before your referring provider. If you have questions, please contact your health care provider. INDICATION: Right knee effusion, concern for infection. TECHNIQUE: Right knee intra-articular aspiration with fluoroscopic guidance. Fluoroscopic time: 42 seconds. FINDINGS: Informed consent was obtained prior to the procedure, universal time out completed. Fluoroscopic localization of the suprapatellar right knee joint was performed. Skin entry site was marked, sterile technique was utilized, and local anesthesia with 1% lidocaine was administered. Aspiration performed using a 22 gauge spinal needle. The needle position was verified with injection of intra-articular contrast. Following confirmation of intra- articular placement, joint aspiration was performed. Aspirate:20 mL synovial fluid. Color: Serosanguineous. Medications: 3 mL Omnipaque 240. 10 mL Lidocaine 1%. The patient tolerated the procedure well with no immediate complications. Procedure Note Greg Gaston MD - 05/22/2025 For Patients: As a result of the Century Cures Act, medical imagingexams and procedure reports are released immediately into your electronicmedical record. You may view this report before your referring provider.If you have questions, please contact your health care provider. INDICATION: Right knee effusion, concern for infection. TECHNIQUE: Right knee intra-articular aspiration with fluoroscopic guidance. Fluoroscopic time: 42 seconds. FINDINGS: Informed consent was obtained prior to the procedure, universal time outcompleted. Fluoroscopic localization of the suprapatellar right knee joint wasperformed. Skin entry site was marked, sterile technique was utilized, and localanesthesia with 1% lidocaine was administered. Aspiration performed using a 22 gauge spinal needle. The needle positionwas verified with injection of intra-articular contrast. Followingconfirmation of intra- articular placement, joint aspiration wasperformed. Aspirate:20 mL synovial fluid. Color: Serosanguineous. Medications: 3 mL Omnipaque 240. 10 mL Lidocaine 1%. The patient tolerated the procedure well with no immediatecomplications. IMPRESSION: : Successful right knee intra-articular joint aspiration. Dictated by Greg Gaston MD @ May 22 2025 1:18PM (Electronically Signed) [email or web address] Isabella YOUNGBLOOD FLUOROSCOPY Final R esult * (ABNORMAL) Body Fluid Culture, Stain (05/22/2025 1:11 PM CDT) CULTURE RESULT(A) 05/25/2025 11:52 AM CDT [facility] CULTURE 1+ Staphylococcus aureus 05/25/2025 11:52 AM CDT [facility] Comment:This isolate is pres umed to be clindamycin resistant based on detection of inducible clindamycin resistance. Clindamycin still may be effective in some patients. GRAM STAIN 2+ PMNs 05/25/2025 11:52 AM CDT [facility] GRAM STAIN 2+ RBCs 05/25/2025 11:52 AM CDT [facility] GRAM STAIN No Epithelial cells 05/25/2025 11:52 AM CDT [facility] GRAM STAIN No organisms seen 025 11:52 AM CDT [facility] Body Fluid SYNOVIAL FLUID SPECIMEN / Unknown Non-Blood / Unknown 05/22/2025 1:11 PM CDT 05/22/2025 1:11 PM CDT Narrative Organism Antibiotic Method Susceptibility Staphylococcus aureus OXACILLIN <=0.25: S Comment:Oxacillin brandt sceptible should not be interpreted as penicillin or amoxicillin susceptible. Staphylococcus aureus CLINDAMYCIN R Staphylococcus aureus DOXYCYCLINE <=0.5: S Staphylococcus aureus CEFAZOLIN S Staphylococcus aureus TRIMETHOPRIM/SULF <=0.5/9.5: S us Isabella YOUNGBLOOD MICROBIOLOGY Final R esult [facility] [address] [place] [address], * Body Fluid Cell Count/Dif (05/22/2025 1:11 PM CDT) BODY FLUID SOURCE Synovial Fluid 05/22/2025 8:36 PM CDT [facility] Comment:RIGHT KNEE BODY FLUID COLOR Grossly Bloody 05/22/2025 8:36 PM CDT [facility] BODY FLUID CLARITY Turbid 05/22/2025 8:36 PM CDT [facility] TOTAL NUCLEATED CELLS, BF 32,875 /cu mm 05/22/2025 8:36 PM CDT [facility] RED BLOOD COUNT, BODY FLUID 113,000 /cu mm 05/22/2025 8:36 PM CDT [facility] % NEUTROPHILS, BODY FLUID 94 % 05/22/2025 8:36 PM CDT [facility] % LYMPHOCYTES, BODY FLUID 2 % 05/22/2025 8:36 PM CDT [facility] % MONO/MACRO, BODY FLUID 4 % 05/22/2025 8:36 PM CDT [facility] Body Fluid SYNOVIAL FLUID SPECIMEN / Unknown Non-Blood / Unknown 05/22/2025 1:11 PM CDT 05/22/2025 1:11 PM CDT Narrative [facility] - 05/22/2025 8:36 PM CDT TO ORDER BODY FLUID CULTURES, USE; [id number] BODY FLUID CULTURE, STAIN us Isabella YOUNGBLOOD BODY FLUID Final R esult Performing Organization Address [facility] Co de Phone Number [facility] [address] [address], [place] * SCAN CORRESP-EKG RESULTS (05/22/2025 12:12 PM CDT) Narrative 05/22/2025 12:12 PM CDT Ordered by an unspecified provider. us Other Clinical Staff OTHER Final Resul t * SCAN CORRESP-IMAGING (05/22/2025 12:12 PM CDT) Anatomical Region Laterality Modality Other Narrative 05/22/2025 12:12 PM CDT Ordered by an unspecified provider. us Other Clinical Staff OTHER Final Resul t * (ABNORMAL) WHITE BLOOD COUNT (05/22/2025 6:35 AM CDT) WHITE BLOOD COUNT 14.8(H) 4.5 - 11.0 thou/cu mm 05/22/2025 7:03 AM CDT [facility] NRBC 0.0 % 05/22/2025 7:03 AM CDT [facility] ABS NRBC 0.0 thou /cu mm 05/22/2025 7:03 AM CDT [facility] Blood BLOOD SPECIMEN / Unknown Venipuncture / Unknown 05/22/2025 6:35 AM CDT 05/22/2025 6:53 AM CDT Symone Joseph MD HEMATOLOGY Final Result Performing Organization Address [facility]/ZIP Co de Phone Number [facility] [address] [address], [place] * SCAN-CARDIAC STRIP (05/21/2025 12:00 AM CDT) Narrative 05/21/2025 12:00 AM CDT Ordered by an unspecified provider. Other Clinical Staff OTHER Final Resul t * [facility] ANES BLOCK INJ PERIPH (04/15/2025 5:52 PM [...] Catheter used:no Events: no complications. Susan Carvalho CRNA ANESTHESIA PX NOTE ORDERABL ES Final Result * [facility] NDL PR1, [facility] TRAY PR10 (04/15/2025 3:15 PM CDT) [...] Catheter used:no Events: no complications. Susan Carvalho CRNA ANESTHESIA PX NOTE ORDERABL ES Final Result * Peripheral Block (04/15/2025 3:09 PM CDT) Marta Villaseñor CRNA - 04/15/2025 3:09 PM CDT Marta [...] Catheter Catheter used:no Events: no complications. Susan Quintero Deven CIVIL LITIGATION ATTORNEY ANESTHESIA PX NOTE ORDERABL ES Final Result * PSA TOTAL (DIAG OR SCREEN) (04/06/2025 11:51 AM CDT) PSA, TOTAL 0.26 < OR = 4.00 ng/mL [place]- marquita Raymond Comment: The total PSA value from this assay system is standardized against the WHO standard. The test result will be approximately 20% lower when compared to the equimolar-standardized total PSA (Benjamín [place]). Comparison of serial PSA results should be [...] Caryl Shi DO CHEMISTRY Final Resu lt [facility] [address] [place] [address], [place] [facility] [address] [place] [address] * AMB EPIDURAL STEROID INJECTION (03/31/2025 12:00 AM CDT) Luis Eduardo Watts MD NEUROLOGY ORD Final Resu lt * US ABD AORTA SCREENING [[id number]] (08/27/2023 2:10 PM MASH TUB COOKER OPERATOR) Anatomical Region Laterality Modality Abdomen, AORTA Ultrasound 08/27/2023 2:16 PM MASH TUB COOKER OPERATOR Narrative 08/27/2023 2:16 PM MASH TUB COOKER OPERATOR For Patients: As a result of the [...] - 199 mg/dL 07/26/2023 10:45 PM CDT [facility] Comment: Cholesterol, Total Reference Ranges Desirable <200 mg/dL Borderline 200-239 mg/dL High >=240 mg/dL TRIGLYCERIDES 436(H) <150 mg/dL 07/26/2023 10:45 PM CDT [facility] HDL CHOLESTEROL 32(L) >40 mg/dL 3 10:45 PM CDT [facility] NON-HDL CHOLESTEROL 114 <145 mg/dl 07/26/2023 10:45 PM CDT [facility] CHOL/HDL RATIO 4.56(H) <4.50 07/26/2023 10:45 PM CDT [facility] LDL CHOLESTEROL 3 10:45 PM CDT [facility] Comment:Invalid LDL when Tri g >400. VLDL CHOLESTEROL COMMENT 07/26/2023 10:45 PM CDT [facility] Comment:Unable to calculate VLDL. PROVIDER ORDERED STATUS FASTING 07/26/2023 10:45 PM CDT [facility] Blood BLOOD SPECIMEN / Unknown Venipuncture / Unknown 07/26/2023 2:25 PM CDT 07/26/2023 2:25 PM CDT us Catia Swift MD CHEMISTRY Final Resul t [facility] [address] [place] [id number], from Last 3 Months or Most Recently Relevant to Health Maintenance Insurance [facility] MEDICARE ADVANTAGE MR MEDICARE PART A HB ONLY HC UCARE MEDICARE PDGM [facility] Advance Directives * Full Code (Latest Code Status on File) Date Activated Date Inactivated Comments 06/02/2025 11:00 AM * Full Code Date Activated Date Inactivated Comments 05/28/2025 10:34 AM 05/29/2025 10:50 PM per surgical consent form Question Answer Comments Code Status Discussion: Reviewed Preferences * Full Code Date Activated Date Inactivated Comments 05/21/2025 7:19 PM 05/28/2025 10:34 AM Question Answer Comments Code Status Discussion: Reviewed Preferences * Full Code Date Activated Date Inactivated Comments 04/15/2025 11:34 AM 04/16/2025 12:52 AM pre consen t form Question Answer Comments Code Status Discussion: Reviewed Preferences Care Teams Production Potter Relationship Specialty Start Date End Date Caryl Shi DO [address] [place] [address] PCP - General Family Practice 07/23/23 Sarahi Roche, RN [address] [place] [address] Docent Coordinator 06/01/[address] [address] 05/29/25
--- OUTSIDE RECORDS SUMMARY | 2025-06-28 14:46 | XMS_ITS | Encounter Summary ---
Author Organization [place] Address [address] [place] [address]. [place] [address] Care Team Providers Care Supervisor Endless Track Vehicle Name Role Phone Maya Goyal MD Primary Care Provider Unavailabl Maya Stallworth MD Unavailable Unavailable Erlin Delcid MD Unavailable [phone] Mehdi Bass DPM Unavailable [phone] Kae Whipple [facility] Unavailable [phone] Maya Goyal MD Unavailable Unavailable No Ref-Primary, Physician Primary Care Provider Mehdi Bass DPM Unavailable [phone] [facility] Unavailable Encounter Details Date Type Department Care Team (Late st Contact Info) Description 09/06/2021 [facility] [address] [place] [address] [place] Lei, [facility] Social History Tobacco Use Types Packs/Day [...] Sex Assigned at Male 09/17/2018 5:00 PM SAND FILLER Legal Sex Male 3:11 AM SAND FILLER Gender Identity Male 09/17/2018 5:00 PM SAND FILLER Sexual Orientation Straight 09/17/2018 5: 00 PM SAND FILLER COVID-19 Exposure Response Date Recorded In the last month, have you been in contact with someone who was confirmed or suspected to have Coronavirus / COVID-19? No / Unsure 08/17/2021 12:57 PM SAND FILLER documented as of this encounter Plan of Treatment Not on file documented as of this encounter Visit Diagnoses Not on filedocumented in this encounter Additional Health Concerns Assessment Noted Time PHQ-9 Depression Total Score: 10 021 2:58 PM CDT documented as of this encounter Care Teams Supervisor Endless Track Vehicle Relationship Specialty Start Date End Date Maya Goyal MD PCP - General 05/03/04 11/14/22 No Ref-Primary, Physician PCP - General 11/15/22 Maya Goyal MD Assigned PCP 06/27/12 10/17/23 Erlin Delcid MD [address] [address] Assigned Surgical Provider 09/12/20 Mehdi [place] DPM [id number] [place] [id number] Assigned Musculoskeletal Provider 08/14/21 10/27/22 Kae Whipple [facility] [address] [place], [place] [address] Assigned MTM Pharmacist 03/18/22 Maya Goyal MD Assigned Pain Medication Provider 10/02/22 03/23/23 Mehdi Bass DPM [address] [place] [address] Assigned Surgical Provider 10/28/22 [facility] [address] [address] Assigned PCP 10/18/23 12/13/24 documented as of this encounter
--- OUTSIDE RECORDS SUMMARY | 2025-06-28 14:46 | XMS_ITS | Clinical Summary ---
Author Organization [facility] Address [address] [place] [address]. [place] [address] Care Team Providers Care Package Line Relief Operator Name Role Phone No Ref-Primary, Physician [...] Total Score(s): No flowsheet data found. Last [facility] website verification: 09/19/19 [email or web address] CKD (chronic kidney disease) stage 1, GFR [...] Comments Circulatory Father AAA Heart Disease Father [place] with sudden d eath, complicated AAA repair [...] Sex Assigned at Male 09/17/2018 5:00 PM WEIR FISHER Legal Sex Male 3:11 AM WEIR FISHER Gender Identity Male 09/17/2018 5:00 PM WEIR FISHER Sexual Orientation Straight 09/17/2018 5: 00 PM WEIR FISHER Last Filed Vital Signs Vital Sign Reading Time Taken Comments Blood Pressure 138/88 11/17/2021 2:13 PM WEIR FISHER Pulse 99 11/17/2021 2:13 PM WEIR FISHER Temperature 37.1 C (98.7 F) 11/17/2021 2:13 PM WEIR FISHER Respiratory Rate 18 11/17/2021 2:13 PM WEIR FISHER Oxygen Saturation 98% 11/17/2021 2:13 PM WEIR FISHER Inhaled Oxygen Concentration - - Weight 154.7 kg (341 lb) 11/17/2021 2:13 PM WEIR FISHER Height 188 cm (6' 2) 11/17/2021 2:13 PM WEIR FISHER Body Mass Index 43.78 11/17/2021 2:13 PM WEIR FISHER Plan of Treatment Not on file [place] [facility] [place]: [address] [address] [place] [address] [facility] [employer] INSURANCE [employer]ppler CLAIMS MANAGEMENT [employer] CLAIMS MANAG[employer] CLAIMS MANAG[employer] NONE (Work) [address] [place], [place] [address] [employer] CLAIMS [employer] * Guarantor: Rafa Rivas Account Type Relation to Patient Date of Phone Billing Address Medication Therapy Self 1960 [address], [place] [address] Advance Directives For more information, please contact: [phone] * Full Code (Latest Code Status on [...] 1:26 PM 09/12/2017 10:19 AM Care Teams Package Line Relief Operator Relationship Specialty Start Date End Date No Ref-Primary, Physician PCP - General 11/15/22
--- OUTSIDE RECORDS SUMMARY | 2025-06-28 14:46 | XMS_ITS | Encounter Summary ---
Author Organization [facility] Address [address] [place] [address]. [place] [address] Care Team Providers Care Hostess Party Sales Representative Name Role Phone Maya Goyal MD Primary Care Provider Unavailabl Maya Stallworth MD Unavailable Unavailable Mehdi Sen MD Unavailable [phone] Erlin Delcid MD Unavailable Elicia Bedoya [facility] Unavailable [phone] Kae Whipple [facility] Unavailable Mehdi BassM Unavailable [phone] Kae Whipple [facility] Unavailable [phone] Maya Goyal MD Unavailable Unavailable No Ref-Primary, Physician Primary Care Provider Mehdi Bass DPM Unavailable [phone] [facility] Unavailable Reason for Visit * Reason Comments Medication Refill Encounter Details Date Type Department Care Team (Late st Contact Info) Description 09/30/2020 [facility] [address] [place] [address] Maya Goyal MD INACTIVE IN [place] 08/23/2024 [...] Sex Assigned at Male 09/17/2018 5:00 PM EMPLOYEE COMMUNICATIONS COORDINATOR Legal Sex Male 3:11 AM EMPLOYEE COMMUNICATIONS COORDINATOR Gender Identity Male 09/17/2018 5:00 PM EMPLOYEE COMMUNICATIONS COORDINATOR Sexual Orientation Straight 09/17/2018 5: 00 PM EMPLOYEE COMMUNICATIONS COORDINATOR COVID-19 Exposure Response Date Recorded In the last month, have you been in contact with someone who was confirmed or suspected to have Coronavirus / COVID-19? Yes 09/07/2020 1:45 PM EMPLOYEE COMMUNICATIONS COORDINATOR documented as of this encounter Miscellaneous Notes * Telephone Encounter - Eva Garcia LPN - 10/05/2020 11:58 AM EMPLOYEE COMMUNICATIONS COORDINATOR Spoke with Patient he is aware and transferred to appionent desk Valery Garcia LPN OYEE COMMUNICATIONS COORDINATOR * Telephone Encounter - Basilia Felipe MD - 10/01/2020 4:04 PM EMPLOYEE COMMUNICATIONS COORDINATOR Please have him schedule an apptsoon, as he is almost due for diabetic check and can recheck sodiumsame time OYEE COMMUNICATIONS COORDINATOR * Telephone Encounter - India Tapia RN - 10/01/2020 9:58 AM CST Routing refill request to provider for review/approval because: Labs out of range: Sodium Date Value Ref Range Status 05/24/2020 127 (L) 133 - 144 mmol/L Final India Tapia RN, BSN OYEE COMMUNICATIONS COORDINATOR documented in this encounter Plan of Treatment Not on file documented as of this encounter Visit Diagnoses Diagnosis Benign essential hypertension Essential hypertension, benign documented in this encounter Additional Health Concerns Assessment Noted Time PHQ-9 Depression Total Score: 10 020 8:55 AM CDT documented as of this encounter Care Teams Hostess Party Sales Representative Relationship Specialty Start Date End Date Maya Goyal MD PCP - General 05/03/04 11/14/22 No Ref-Primary, Physician PCP - General 11/15/22 Maya Goyal MD Assigned PCP 06/27/12 10/17/23 Mehdi Sen MD [address] [place] [address] Assigned Musculoskeletal Provider 07/16/20 12/18/20 Erlin Delcid MD [address] [facility] [address] [place] [address] Assigned Surgical Provider 09/12/20 Elicia Bedoya [facility] [address] [facility] [address] [place] [address] Pharmacist Pharmacist 11/09/20 12/06/20 Kae Whipple [facility] [address] [place] [address] Pharmacist Pharmacist 11/30/20 12/06/20 [place] [address] [facility] [address] [place] [address] Assigned Musculoskeletal Provider 08/14/21 10/27/22 Kae Whipple [facility] [address] [place] [address] Assigned MTM Pharmacist 03/18/22 Maya Goyal MD Assigned Pain Medication Provider 10/02/22 03/23/23 [place]PM [address] [facility] [address] [place] [address] Assigned Surgical Provider 10/28/[address] [address] Assigned PCP 10/18/23 12/13/24 documented as of this encounter
--- OUTSIDE RECORDS SUMMARY | 2025-06-28 14:46 | XMS_ITS | Encounter Summary ---
Author Organization [facility] Address [address] [place] [address]. [place] [address] Care Team Providers Care Customer Support Analyst Name Role Phone Maya Goyal MD Primary Care Provider UnavailMaya Vazquez MD Unavailable Unavailable Erlin Delcid MD Unavailable [phone] Mehdi Bass DPM Unavailable [phone] Kae Whipple [facility] Unavailable [phone] Maya Goyal MD Unavailable Unavailable No Ref-Primary, Physician Primary Care Provider Mehdi Bass DPQuita Unavailable [phone] [facility] Unavailable Reason for Visit * Reason Onset Date Comments MyChart Communication 11/09/2021 Encounter Details Date Type Department Care Team (Latest Contact Info) Description 11/09/2021 [facility] [place] [address] [place] [phone] Maya Goyal MD INACTIVE IN [place] 08/23/2024 [...] Sex Assigned at Male 09/17/2018 5:00 PM ELEMENTARY SCHOOL LIBRARIAN Legal Sex Male 3:11 AM ELEMENTARY SCHOOL LIBRARIAN Gender Identity Male 09/17/2018 5:00 PM ELEMENTARY SCHOOL LIBRARIAN Sexual Orientation Straight 09/17/2018 5: 00 PM ELEMENTARY SCHOOL LIBRARIAN COVID-19 Exposure Response Date Recorded In the last month, have you been in contact with someone who was confirmed or suspected to have Coronavirus / COVID-19? No / Unsure 11/10/2021 9:52 AM ELEMENTARY SCHOOL LIBRARIAN documented as of this encounter Miscellaneous Notes * Telephone Encounter - Rukhsana Bowden RN - 11/09/2021 12:58 PM ELEMENTARY SCHOOL LIBRARIAN See Intellistream message. Sent his refill request encounter to Dr Goyal. ENTARY SCHOOL LIBRARIAN documented in this encounter Plan of Treatment Not on file documented as of this encounter Visit Diagnoses Not on filedocumented in this encounter Additional Health Concerns Assessment Noted Time PHQ-9 Depression Total Score: 10 021 2:58 PM CDT documented as of this encounter Care Teams Customer Support Analyst Relationship Specialty Start Date End Date Maya Goyal MD PCP - General 05/03/04 11/14/22 No Ref-Primary, Physician PCP - General 11/15/22 Maya Goyal MD Assigned PCP 06/27/12 10/17/23 Erlin Delcid MD [address] [place] [address] Assigned Surgical Provider 09/12/20 Meh[place] [address] [facility] [address] [place] [address] Assigned Musculoskeletal Provider 08/14/21 10/27/22 Kae Whipple [facility] [address] [place] [address] Assigned MTM Pharmacist 03/18/22 Maya Goyal MD Assigned Pain Medication Provider 10/02/22 03/23/23 Mehdi Bass DPM [address] [facility] [address] [place], [place] [address] Assigned Surgical Provider 10/28/22 [facility] [address] [place], [place] [address] Assigned PCP 10/18/23 12/13/24 documented as of this encounter
--- OUTSIDE RECORDS SUMMARY | 2025-06-28 14:46 | XMS_ITS | Encounter Summary ---
Author Organization [place] Address [address] [place] [address]. [place] [address] Care Team Providers Care Geneticist Name Role Phone Maya Goyal MD Primary Care Provider UnavailMaya Vazquez MD Unavailable Unavailable Erlin Delcid MD Unavailable Mehdi Bass DPM Unavailable [phone] Kae Whipple [facility] Unavailable Maya Goyal MD Unavailable Unavailable No Ref-Primary, Physician Primary Care Provider Mehdi Bass DPM Unavailable [phone] [facility] Unavailable Reason for Visit * Reason Comments Medication Refill Encounter Details Date Type Department Care Team (Late st Contact Info) Description 09/25/2021 [facility] [address] [place] [phone] Maya Goyal MD INACTIVE IN [place] 08/23/2024 Medication Refill Social History Tobacco Use [...] Assigned at Male 09/17/2018 5:00 PM EMERGENCY SERVICES DIRECTOR Legal Sex Male 3:11 AM EMERGENCY SERVICES DIRECTOR Gender Identity Male 09/17/2018 5:00 PM EMERGENCY SERVICES DIRECTOR Sexual Orientation Straight 09/17/2018 5: 00 PM EMERGENCY SERVICES DIRECTOR documented as of this encounter Miscellaneous Notes * Telephone Encounter - Rukhsana Yo RN - 09/27/2021 3:57 PM CST Prescription approved per [facility] Refill Protocol. 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, without long-term current use of insulin (H) documented in this encounter Additional Health Concerns Assessment Noted Time PHQ-9 Depression Total Score: 10 021 2:58 PM CDT documented as of this encounter Care Teams Geneticist Relationship Specialty Start Date End Date Maya Goyal MD PCP - General 05/03/04 11/14/22 No Ref-Primary, Physician PCP - General 11/15/22 Maya Goyal MD Assigned PCP 06/27/12 10/17/23 Erlin Delcid MD [address] [address] Assigned Surgical Provider 09/12/20 [place] [address] [facility] [address] [place] [address] Assigned Musculoskeletal Provider 08/14/21 10/27/22 Kae Whipple [facility] [address] [place] [address] Assigned MTM Pharmacist 03/18/22 aMya Goyal MD Assigned Pain Medication Provider 10/02/22 03/23/23 [place] [address] [facility] [address] [place], [place] [address] Assigned Surgical Provider 10/28/[address] [address]24[address] Assigned PCP 10/18/23 12/13/24 documented as of this encounter
--- OUTSIDE RECORDS SUMMARY | 2025-06-28 14:46 | XMS_ITS | Encounter Summary ---
Author Organization [place] Address [address] [place] [address]. [place] [address] Care Team Providers Care Transportation Dispatcher Name Role Phone Maya oGyal MD Primary Care Provider UnavailMaya Vazquez MD Unavailable Unavailable Erlin Delcid MD Unavailable Mehdi Bass DPM Unavailable [phone] Kae Whipple [facility] Unavailable Maya Goyal MD Unavailable Unavailable No Ref-Primary, Physician Primary Care Provider Mehdi Bass DPM Unavailable [phone] [facility] Unavailable Reason for Visit * Reason Comments Medication Refill Encounter Details Date Type Department Care Team (Late st Contact Info) Description 12/05/2021 [facility] [address] [place] [phone] Maya Goyal MD INACTIVE IN [place] 08/23/2024 Medication Refill Social History Tobacco Use [...] Sex Assigned at Male 09/17/2018 5:00 PM WAREHOUSE SUPERVISOR 3RD SHIFT Legal Sex Male 3:11 AM WAREHOUSE SUPERVISOR 3RD SHIFT Gender Identity Male 09/17/2018 5:00 PM WAREHOUSE SUPERVISOR 3RD SHIFT Sexual Orientation Straight 09/17/2018 5: 00 PM WAREHOUSE SUPERVISOR 3RD SHIFT COVID-19 Exposure Response Date Recorded In the last month, have you been in contact with someone who was confirmed or suspected to have Coronavirus / COVID-19? No / Unsure 11/17/2021 2:07 PM WAREHOUSE SUPERVISOR 3RD SHIFT documented as of this encounter Miscellaneous Notes * Telephone Encounter - Celestino Latham RN - 12/06/2021 6:42 PM CDT Prescription approved per [facility] Refill Protocol. documented in this encounter [...] documented as of this encounter Care Teams Transportation Dispatcher Relationship Specialty Start Date End Date Maya Goyal MD PCP - General 05/03/04 11/14/22 No Ref-Primary, Physician PCP - General 11/15/22 Maya Goyal MD Assigned PCP 06/27/12 10/17/23 Erlin Delcid MD [address] [place] [address] Assigned Surgical Provider 09/12/20 Mehdi Bass [place] [address] [facility] [address] [place] [address] Assigned Musculoskeletal Provider 08/14/21 10/27/22 Kae Whipple [facility] [address] [place] [address] Assigned MTM Pharmacist 03/18/22 Maya Goyal MD Assigned Pain Medication Provider 10/02/22 03/23/23 [place] [address] [facility] [address] [place] [address] Assigned Surgical Provider 10/28/22 [facility] [address] [place] [address] Assigned PCP 10/18/23 12/13/24 documented as of this encounter
--- OUTSIDE RECORDS SUMMARY | 2025-06-28 14:46 | XMS_ITS | Encounter Summary ---
Author Organization [place] Address [address] [place] [address]. [place] [address] Care Team Providers Care Foxing Painter Name Role Phone Maya Goyal MD Primary Care Provider UnavailMaya Vazquez MD Unavailable Unavailable Erlin Delcid MD Unavailable Mehdi Bass DPM Unavailable [phone] Kae Whipple [facility] Unavailable Maya Goyal MD Unavailable Unavailable No Ref-Primary, Physician Primary Care Provider Mehdi Bass DPM Unavailable [phone] [facility] Unavailable Reason for Visit * Reason Comments Medication Refill Encounter Details Date Type Department Care Team (Late st Contact Info) Description 06/25/2021 [facility] [address] [place] [phone] Maya Goyal MD INACTIVE IN [place] 08/23/2024 [...] Sex Assigned at Male 09/17/2018 5:00 PM ATTORNEY LAW CLERK Legal Sex Male 3:11 AM ATTORNEY LAW CLERK Gender Identity Male 09/17/2018 5:00 PM ATTORNEY LAW CLERK Sexual Orientation Straight 09/17/2018 5: 00 PM ATTORNEY LAW CLERK documented as of this encounter Miscellaneous Notes * Telephone Encounter - Celestino Latham RN - 06/27/2021 2:46 PM CDT Prescription approved per [facility] Refill Protocol. documented in this encounter Plan of Treatment Not on file documented as of this encounter Visit Diagnoses Diagnosis Moderate episode of recurrent major depressive disorder (H)- Primary documented in this encounter Additional Health Concerns Assessment Noted Time PHQ-9 Depression Total Score: 10 021 2:58 PM CDT documented as of this encounter Care Teams Foxing Painter Relationship Specialty Start Date End Date Maya Goyal MD PCP - General 05/03/04 11/14/22 No Ref-Primary, Physician PCP - General 11/15/22 Maya Goyal MD Assigned PCP 06/27/12 10/17/23 Erlin Delcid MD [address] [address] Assigned Surgical Provider 09/12/20 [place] [address] [facility] [address] [place] [address] Assigned Musculoskeletal Provider 08/14/21 10/27/22 Kae Whipple [facility] [address] [place] [address] Assigned MTM Pharmacist 03/18/22 Maya Goyal MD Assigned Pain Medication Provider 10/02/22 03/23/23 Mehdi Bass [place] [address] [facility] [address] [place], [place] [address] Assigned Surgical Provider 10/28/[address] [address] Assigned PCP 10/18/23 12/13/24 documented as of this encounter
--- OUTSIDE RECORDS SUMMARY | 2025-06-28 14:46 | XMS_ITS | Patient Health Record ---
Author Organization [facility] Address [address] [place] [address] [address] [place] [address] Care Team Providers Care Office Nurse Name Role Phone Caryl Shi Primary Care Provider Karlo Hewitt Unavailable [phone] Catia Swift MD Unavailable Unavailable Michael Suárez Unavailable [phone] Allergies No Known Allergies Results Component Value Reference Range Notes Oral Toxicology Screen Reviewed date:07/14/2024 01:11:06 PM Interpretation:see results Performing Lab: Notes/Report: see results Oral Toxicology Screen Reviewed date:01/19/2025 04:10:13 PM [...] Duration: 30 days Active UltiCare Short Pen [place] 31G X 8 MM DIRECTED; Duration: 30 Days Active Lantus SoloStar 100 UNIT/ML Subcutaneous; Duration: 17 Days Active Journavx 50 MG 1-2 tablets Orally every 12 hours; Duration: 14 days 06/04/2025 Active Carvedilol 25 MG Oral; Duration: 90 Days Active oxyCODONE-Acetaminophe n 5-325 MG 1 tablet as needed Orally every 8-12 hours; Duration: 15 days ok to fill 06/18/25 06/18/2025 Active amLODIPine Besylate 5 MG Oral; Duration: 90 Days Active oxyCODONE-Acetaminophe n 5-325 MG 1 tablet as needed Orally every 8-12 hours; Duration: 15 days ok to fill 07/03/25 07/03/2025 Active oxyCODONE HCl 5 MG 1 tablet as needed Orally every 8-12 hours; Duration: 30 days ok to fill 06/18/25 Low back pain, unspecified M54.50, G89.29 PRINTED 06/18/2025 Active hydrOXYzine HCl 25 MG 1 tablet as needed Orally every 8 hrs; Duration: 30 day(s) 06/04/2025 Active Social History Tobacco Use: Social History [...] W/U Status Risk Notes Problem Opioid dependence (95092654) Opioid dependence, uncomplicated (F11.20) Active confirmed Problem Chronic pain (44826693) Other chronic pain (G89.29) Active confirmed Problem Primary osteoarthritis (705545382) Unilateral primary osteoarthritis, right knee (M17.11) Active confirmed Problem Osteoarthritis of knee (504214714) Unilateral primary osteoarthritis, left knee (M17.12) Active confirmed Problem Arthralgia of the pelvic region and thigh (379963615) Pain in right hip (M25.551) Active confirmed Problem Pain of left hip joint (finding) (954200262998543) Pain in left hip (M25.552) Active confirmed Problem Acquired spondylolisthesis (430026308) Spondylolysis, lumbosacral region (M43.07) Active confirmed Problem Lumbosacral radiculopathy (7145651) Radiculopathy, lumbosacral region (M54.17) Active confirmed Problem Cervicalgia (40834602) Cervicalgia (M54.2) Active confirmed Problem High risk drug monitoring status (583661374) jail (current) use of opiate analgesic (Z79.891) Active confirmed Problem Low back pain (268332878) Low back pain, unspecified (M54.50) Active confirmed Vital Signs Blood pressure diastolic 82 mm Hg 05/18/2025 Height 74 in 05/18/2025 Blood pressure systolic 132 mm Hg 05/18/2025 Weight 315 lbs 05/18/2025 BMI 40.44 kg/m2 05/18/2025 Encounters Encounter Location Date Provider Diagnosis [facility] [address] [place] [address] [address] [place] [id number] 07/07/2024 Michael Suárez [facility] [address] [place] [address] [address] [place] [place] [id number] 08/07/2024 Michael Suárez Other chronic pain G89.29 [facility] [address] [place] [address] [address] [place] [id number] 10/09/2024 Michael Suárez Other chronic pain G89.29 [facility] [address] [place] [address] [address] [place] [place] [id number] 11/06/2024 Karlo Ortiz [facility] [address] [place] [address] [address] [place] [address] [address] 11/14/2024 Michael Suárez [facility] [address] [place] [address] [address] [place] [place] [id number] 12/08/2024 Michael Suárez Other chronic pain G89.29 [facility] [address] [place] [address] [address] [place] [id number] 01/17/2025 Karlo Ortiz [facility] [address] [place] [address] [address] [place] [id number] 03/13/2025 Michael Suárez Other chronic pain G89.29 [facility] [address] [place] [address] [address] [place] [place] [id number] 03/19/2025 Karlo Ortiz [facility] [address] [place] [address] [address] [place] [place] [id number] 04/16/2025 Michael Jose Armando Other chronic pain G89.29 [facility] [address] [place] [address] [address] [place] [address] 05/18/2025 Michael Jose Armando [facility] [address] [place] [address] [address] [place] [address] 06/04/2025 Michael Jose Armando Other chronic pain G89.29 [facility] [address] [place] [address] [address] [place] [address] 06/04/2025 Michael Jose Armando Other chronic pain G89.29 [address] [facility] [address] [place] [phone] 07/07/2024 Michael Jose Armando jail (current) use of opiate analgesic Z79.891 ; Spondylolysis, lumbosacral region M43.07 ; Opioid dependence, uncomplicated F11.20 and Other chronic pain G89.29 [address] [facility] [address] [place] [address] 09/03/2024 Michael Amayae Unilateral primary osteoarthritis, right knee M17.11 ; Low back pain, unspecified M54.50 ; Unilateral primary osteoarthritis, left knee M17.12 ; Pain in left hip M25.552 ; Pain in right hip M25.551 and Other chronic pain G89.29 [address] [facility] [address] [place] [address] 11/06/2024 Michael Amayae Unilateral primary osteoarthritis, right knee M17.11 ; Unilateral primary osteoarthritis, left knee M17.12 ; Low back pain, unspecified M54.50 ; Pain in left hip M25.552 ; Pain in right hip M25.551 and Other chronic pain G89.29 [address] [facility] [address] [place] [phone] 01/05/2025 Michael Suárez Low back pain, unspecified M54.50 ; Cervicalgia M54.2 ; Unilateral primary osteoarthritis, left knee M17.12 ; Unilateral primary osteoarthritis, right knee M17.11 ; Other chronic pain G89.29 ; 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 and Opioid dependence, uncomplicated F11.20 [address] [facility] [address] [place] [address] 03/19/2025 Michael Suárez Unilateral primary osteoarthritis, right knee M17.11 ; Unilateral primary osteoarthritis, left knee M17.12 ; Spondylolysis, lumbosacral region M43.07 and Other chronic pain G89.29 [address] [facility] [address] [place] [address] 05/18/2025 Michael Suárez Unilateral primary osteoarthritis, right knee M17.11 ; Unilateral primary osteoarthritis, left knee M17.12 ; Spondylolysis, lumbosacral region M43.07 and Other chronic pain G89.29 Assessments Encounter Date Diagnosis (ICD Code) Assessment Notes Treatment Notes Treatment Clinical Notes Section Notes 12/08/2024 Other chronic pain (ICD-10 - G89.29) 01/05/2025 Cervicalgia (ICD-10 - M54.2) 01/05/2025 Low back pain, unspecified (ICD-10 - M54.50) 09/03/2024 Low back pain, unspecified (ICD-10 - M54.50) 09/03/2024 Unilateral primary osteoarthritis, right knee (ICD-10 - M17.11) 06/04/2025 Other chronic pain (ICD-10 - G89.29) 05/18/2025 Unilateral primary osteoarthritis, right knee (ICD-10 - M17.11) 06/04/2025 Other chronic pain (ICD-10 - G89.29) 03/19/2025 Unilateral primary osteoarthritis, right knee (ICD-10 - M17.11) 03/19/2025 Unilateral primary osteoarthritis, left knee (ICD-10 - M17.12) 11/06/2024 Unilateral primary osteoarthritis, right knee (ICD-10 - M17.11) 10/09/2024 Other chronic pain (ICD-10 - G89.29) 08/07/2024 Other chronic pain (ICD-10 - G89.29) 03/13/2025 Other chronic pain (ICD-10 - G89.29) 04/16/2025 Other chronic pain (ICD-10 - G89.29) 07/07/2024 Spondylolysis, lumbosacral region (ICD-10 - M43.07) 07/07/2024 jail (current) use of opiate analgesic (ICD-10 - Z79.891) 07/07/2024 Opioid dependence, uncomplicated (ICD-10 - F11.20) 11/06/2024 Unilateral primary osteoarthritis, left knee (ICD-10 - M17.12) 03/19/2025 Spondylolysis, lumbosacral region (ICD-10 - M43.07) 05/18/2025 Unilateral primary osteoarthritis, left knee (ICD-10 - M17.12) 09/03/2024 Unilateral primary osteoarthritis, left knee (ICD-10 - M17.12) 01/05/2025 Unilateral primary osteoarthritis, left knee (ICD-10 - M17.12) 01/05/2025 Unilateral primary osteoarthritis, right knee (ICD-10 - M17.11) 09/03/2024 Pain in left hip (ICD-10 - M25.552) 05/18/2025 Spondylolysis, lumbosacral region (ICD-10 - M43.07) 03/19/2025 Other chronic pain (ICD-10 - G89.29) Rafa Calabrese) returns to clinic today for a follow-up evaluation regarding his chronic neck, low back, and bilateral knee pain. I have reviewed the [place] CLIENT RELATIONS REPRESENTATIVE database and did not find any inconsistencies. [...] back pain, unspecified (ICD-10 - M54.50) 07/07/2024 Other chronic pain (ICD-10 - G89.29) Vinod returns to clinic today for a follow-up evaluation regarding his chronic low back, neck, and bilateral knee pain. We discussed his current symptoms and medications. Regarding medications, I have reviewed the [place] CLIENT RELATIONS REPRESENTATIVE database and his most recent UDS, finding [...] Pain in right hip (ICD-10 - M25.551) 05/18/2025 Other chronic pain (ICD-10 - G89.29) Rafa Calabrese) returns to clinic today for a follow-up evaluation regarding his chronic neck, low back, and bilateral knee pain. I have reviewed the [place] CLIENT RELATIONS REPRESENTATIVE database and did not find any inconsistencies. [...] questions, problems or concerns. 09/03/2024 Pain in right hip (ICD-10 - M25.551) 01/05/2025 Other chronic pain (ICD-10 - G89.29) Rafa Calabrese) returns to clinic today for a follow-up evaluation regarding his chronic neck, low back, and bilateral knee pain. I have reviewed the [facility] database and did not find [...] any questions, problems or concerns. 09/03/2024 Other chronic pain (ICD-10 - G89.29) Vinod returns to clinic today for a follow-up evaluation regarding his chronic low back, neck, and bilateral knee pain. We discussed his current symptoms and medications. Regarding medications, I have reviewed the [facility] database and his most recent [...] with any questions, problems or concerns. 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 We discussed his current symptoms and medications. Regarding medications, I have reviewed the [place] CLIENT RELATIONS REPRESENTATIVE database and did not find any inconsistencies. [...] with any questions, problems or concerns. 01/05/2025 Opioid dependence, uncomplicated (ICD-10 - F11.20) 05/18/2025 Other Italo Hoover in, am serving as a scribe to document services personally performed by Michael Suárez NP, based upon my observations and the provider's statements to me. All documentation has been reviewed by the aforementioned TRACK SERVICE PERSON prior to being entered into the official [...] documentation has been reviewed by the aforementioned MENTAL HEALTH PRACTITIONER. Kiko, Michael Suárez CNP, attest that the above named individual is acting in scribe capacity, has observed my performance of the services and has documented them in accordance with my direction. The documentation recorded by the scribe accurately reflects the service I personally performed and the decisions made during the clinic visit. 09/03/2024 Other Ann Hoover, am serving as a scribe to document services personally performed by Michael Suárez CNP, based upon my observations and the provider's statements to me. All documentation has been reviewed by the aforementioned MENTAL HEALTH PRACTITIONER. Michael Hoover CNP, attest that the above [...] documentation has been reviewed by the aforementioned TRACK SERVICE PERSON. Kiko, Michael Suárez NP, attest that the above named individual is acting in scribe capacity, has observed my performance of the services and has documented them in accordance with my direction. The documentation recorded by the scribe accurately reflects the service I personally performed and the decisions made during the clinic visit. 11/06/2024 Other Italo Hoover in, am serving as a scribe to document services personally performed by Michael Suárez CNP, based upon my observations and the provider's statements to me. All documentation has been reviewed by the aforementioned MENTAL HEALTH PRACTITIONER as well as Karlo Ortiz MD, prior [...] made by them. 03/19/2025 Other I, Josh Luis nn, am serving as a scribe to document services personally performed by Michael Suárez CNP, based upon my observations and the provider's statements to me. All documentation has been reviewed by the aforementioned MENTAL HEALTH PRACTITIONER as well as Bakari Stringer MD, prior [...] Next Appt Details Provider Name:Michael Suárez , 07/21/2025 12:45:00 PM, [address] [facility], [address], [place], [address], Insurance Providers Payer Name Payer Address Payer Phone Subscriber Number Group Number Insured Name Patient Relationship to Insured Coverage Start Date Coverage End Date [facility] Medicare [address] [place] [address] [id number] Rafa Hickey Self - patient is the insured 5 Medicare Part B [employer] [address] [facility] [place] [address] [id number] Rafa Hickey Self - patient is the [...]
--- OUTSIDE RECORDS SUMMARY | 2025-06-28 14:47 | XMS_ITS | Encounter Summary ---
Author Organization [facility] Address [address] [place] [address]. [place] [address] Care Team Providers Care Dance Entertainer Name Role Phone Maya Goyal MD Primary Care Provider UnavailEva Brannon RN Unavailable [phone] Maya Goyal MD Unavailable Unavailable Maya Goyal MD Unavailable Unavailable Mehdi Sen MD Unavailable [phone] Erlin Delcid MD Unavailable [phone] Elicia Bedoya [facility] Unavailable [phone] Kae Whipple [facility] Unavailable [phone] Mehdi Bass DPM Unavailable [phone] Kae Whipple [facility] Unavailable [phone] Maya Goyal MD Unavailable Unavailable No Ref-Primary, Physician Primary Care Provider Mehdi Bass DPM Unavailable [phone] [facility] [...] Sex Assigned at Male 09/17/2018 5:00 PM COMPUTER SECURITY SPECIALIST Legal Sex Male 3:11 AM COMPUTER SECURITY SPECIALIST Gender Identity Male 09/17/2018 5:00 PM COMPUTER SECURITY SPECIALIST Sexual Orientation Straight 09/17/2018 5: 00 PM COMPUTER SECURITY SPECIALIST documented as of this encounter Plan of Treatment Not on file documented as of this encounter Visit Diagnoses Not on filedocumented in this encounter Additional Health Concerns Infection Onset Date Last Indicated Resolved Time COVID-19 08/27/2020 08/27/2020 09/17/2020 11:4 0 PM COMPUTER SECURITY SPECIALIST Assessment Noted Time PHQ-9 Depression Total Score: 14 017 11:50 AM COMPUTER SECURITY SPECIALIST documented as of this encounter Care Teams Dance Entertainer Relationship Specialty Start Date End Date Maya Goyal MD PCP - General 05/03/04 11/14/22 Maya Goyal MD INACTIVE IN [place] 08/23/2024 PCP - Assigned PCP 10/22/09 11/26/18 No Ref-Primary, Physician PCP - General 11/15/22 Eva Mckenna RN Clinic [facility] Internship Primary Care - CC 02/19/18 Maya Goyal MD Assigned PCP 06/27/12 10/17/23 Mehdi Sen MD [address] [place] [address] Assigned Musculoskeletal Provider 07/16/20 12/18/20 Erlin Delcid MD [address] [facility] [address] [place] [address] Assigned Surgical Provider 09/12/20 Elicia Bedoya, [facility] [address] [place] [address] [address] [place] [address] Pharmacist Pharmacist 11/09/20 12/06/20 Kae Whipple [address] [place] [address] Pharmacist Pharmacist 11/30/20 12/06/20 Mehdi Bass DPM [address] [facility] [address] [place] [address] Assigned Musculoskeletal Provider 08/14/21 10/27/22 Kae Whipple [facility] [address] [place] [address] Assigned MTM Pharmacist 03/18/22 Maya Goyal MD Assigned Pain Medication Provider 10/02/22 03/23/23 [place] [id number] [address] Assigned Surgical Provider 10/28/22 [facility] [address] [place] [address] Assigned PCP 10/18/23 12/13/24 documented as of this encounter
--- OUTSIDE RECORDS SUMMARY | 2025-06-28 14:47 | XMS_ITS | Encounter Summary ---
Author Organization [facility] Address [address] [place] [address]. [place] [address] Care Team Providers Care Electron Microscopist Name Role Phone Maya Goyal MD Primary Care Provider Unavailabl Maya Stallworth MD Unavailable Unavailable Mehdi Sen MD Unavailable [phone] Erlin Delcid MD Unavailable Elicia Bedoya [facility] Unavailable Kae Whipple [facility] Unavailable Mehdi BassM Unavailable [phone] Kae Whipple [facility] Unavailable Maya Goyal MD Unavailable Unavailable No Ref-Primary, Physician Primary Care Provider Mehdi Bass DPM Unavailable [phone] [facility] Unavailable Reason for Visit * Reason Comments Medication Refill Encounter Details Date Type Department Care Team (Late st Contact Info) Description 03/22/2020 [facility] [address] [place] [address] Maya Goyal MD INACTIVE IN [place] 08/23/2024 [...] Assigned at Male 09/17/2018 5:00 PM IT SOFTWARE DEVELOPER Legal Sex Male 3:11 AM IT SOFTWARE DEVELOPER Gender Identity Male 09/17/2018 5:00 PM IT SOFTWARE DEVELOPER Sexual Orientation Straight 09/17/2018 5: 00 PM IT SOFTWARE DEVELOPER COVID-19 Exposure Response Date Recorded In the last month, have you been in contact with someone who was confirmed or suspected to have Coronavirus / COVID-19? No / Unsure 03/12/2020 11:08 AM CDT documented as of this encounter Miscellaneous Notes * Telephone Encounter - Leah Narvaez RPH - 03/23/2020 4:44 PM CDT Prescription approved per [facility] Refill Protocol. documented in this encounter Plan [...] 08/27/2020 08/27/2020 09/17/2020 11:4 0 PM IT SOFTWARE DEVELOPER Assessment Noted Time PHQ-9 Depression Total Score: 9 11/19/19 20 7:03 AM IT SOFTWARE DEVELOPER documented as of this encounter Care Teams Electron Microscopist Relationship Specialty Start Date End Date Maya Goyal MD PCP - General 05/03/04 11/14/22 No Ref-Primary, Physician PCP - General 11/15/22 Maya Goyal MD Assigned PCP 06/27/12 10/17/23 Mehdi Sen MD [address] [place] [address] Assigned Musculoskeletal Provider 07/16/20 12/18/20 Erlin Delcid MD [address] [address] Assigned Surgical Provider 09/12/20 Elicia Bedoya, [facility] [address] [place] [address] [address] [place] [address] Pharmacist Pharmacist 11/09/20 12/06/20 Kae Whipple [facility] [address] [place] [address] Pharmacist Pharmacist 11/30/20 12/06/20 Mehdi Bass DPM [address] [place] [address] [place] [address] Assigned Musculoskeletal Provider 08/14/21 10/27/22 Kae Whipple [facility] [address] [place] [address] Assigned MTM Pharmacist 03/18/22 Maya Goyal MD Assigned Pain Medication Provider 10/02/22 03/23/23 Mehdi Bass DPM [address] [place] [address] [address] [place] [address] Assigned Surgical Provider 10/28/22 [facility] [address] [place] [address] Assigned PCP 10/18/23 12/13/24 documented as of this encounter
--- OUTSIDE RECORDS SUMMARY | 2025-06-28 14:47 | XMS_ITS | Encounter Summary ---
Author Organization [place] Address [address] [place] [address] Care Team Providers Care Exhibits Coordinator Name Role Phone Maya Goyal MD Primary Care Provider Unavailabl e None Primary Care Provider Unavailnikole e Eva Mckenna RN Unavailable [phone] Maya Goyal MD Unavailable Unavailable Maya Goyal MD Unavailable Unavailable Mehdi Sen MD Unavailable [phone] Erlin Delcid MD Unavailable [phone] Elicia Bedoya [facility] Unavailable [phone] Kae Whipple [facility] Unavailable [phone] Mehdi BassM Unavailable [phone] Kae Whipple [facility] Unavailable [phone] Maya Goyal MD Unavailable Unavailable No Ref-Primary, Physician Primary Care Provider Mehdi BassM Unavailable [phone] [facility] Unavailable Encounter Details Date Type Department Care Team (Late st Contact Info) Description 02/16/2003 [facility] [address] [place] [address] Maya Goyal MD INACTIVE IN [place] 08/23/2024 ER ENC (Primary Dx) Social History [...] Sex Assigned at Male 09/17/2018 5:00 PM MANNEQUIN SANDER AND FINISHER Legal Sex Male 3:11 AM MANNEQUIN SANDER AND FINISHER Gender Identity Male 09/17/2018 5:00 PM MANNEQUIN SANDER AND FINISHER Sexual Orientation Straight 09/17/2018 5: 00 PM MANNEQUIN SANDER AND FINISHER documented as of this encounter Progress Notes * 02/16/2003 11:59 PM RAFA SYKES 00:00 Emergency Department Encounter-[facility] NEISHA HAWK () [Ente red: 00:00 Spring Assembler Supervisor (HIM)] CHIEF COMPLAINT: Ankle pain. 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 A rolling tool box rolled into his right medial ankle resulting in pain. He p resents now for evaluation. PAST MEDICAL HISTORY: Hypertension and hypercholesterolemia. CURRENT MED ICATIONS: Lotrel, Zocor and gemfibrozil. ALLERGIES: No known allergies. SOCIAL HISTORY: The carlos zavala works for [employer] as above. He is a one pack [...] Skin: Warm and dry and as above. [facility] DEPARTMENT COURSE AND TREATMENT: The patient [...] 1. Rest, ice and elevation. 2. Ibuprofen wyeu-hdu-uzulptc prn. 3. Work restricti ons as a [...] COVID-19 08/27/2020 08/27/2020 09/17/2020 11:4 0 PM MANNEQUIN SANDER AND FINISHER documented as of this encounter Care Teams Exhibits Coordinator Relationship Specialty Start Date End Date Maya Goyal MD PCP - General 05/03/04 11/14/22 None PCP - General 12/01/02 05/02/04 Maya Goyal MD INACTIVE IN [place] 08/23/2024 PCP - Assigned PCP 10/22/09 11/26/18 No Ref-Primary, Physician PCP - General 11/15/22 Eva Mckenna RN Clinic Trade Union Secretary Primary Care - CC 02/19/18 Maya Goyal MD Assigned PCP 06/27/12 10/17/23 Mehdi Sen MD 9 [place], [place] [address] Assigned Musculoskeletal Provider 07/16/20 12/18/20 Elrin Delcid MD [address] [address] Assigned Surgical Provider 09/12/20 Elicia Bedoya [facility] [address] [place] [address] 812 [place] [address] Pharmacist Pharmacist 11/09/20 12/06/20 Kae Whipple [facility] 303 [place] [address] Pharmacist Pharmacist 11/30/20 12/06/20 Mehdi Bass DPM [id number] [place] [address] [place] [address] Assigned Musculoskeletal Provider 08/14/21 10/27/22 Kae Whipple [facility] [address] [place] [address] Assigned MTM Pharmacist 03/18/22 Maya Goyal MD Assigned Pain Medication Provider 10/02/22 03/23/23 Mehdi Bass DPM [id number] [place] [address] [place] [address] Assigned Surgical Provider 10/28/22 [facility] 303 [place] [address] Assigned PCP 10/18/23 12/13/24 documented as of this encounter
--- OUTSIDE RECORDS SUMMARY | 2025-06-28 14:47 | XMS_ITS | Encounter Summary ---
Author Organization [place] Address [address] [place] [address] Care Team Providers Care Supervisor Net Making Name Role Phone Maya Goyal MD Primary Care Provider Unavailabl e None Primary Care Provider Unavailnikole e Eva Mckenna RN Unavailable [phone] Maya Goyal MD Unavailable Unavailable Maya Goyal MD Unavailable Unavailable Mehdi Sen MD Unavailable [phone] Erlin Delcid MD Unavailable [phone] Elicia Bedoya [facility] Unavailable [phone] Kae Whipple [facility] Unavailable [phone] Mehdi BassM Unavailable [phone] Kae Whipple [facility] Unavailable [phone] Maya Goyal MD Unavailable Unavailable No Ref-Primary, Physician Primary Care Provider Mehdi BassM Unavailable [phone] [facility] Unavailable Encounter Details Date Type Department Care Team (Late st Contact Info) Description 03/10/2003 [facility] [address] [address] Jonathan Casillas MD XXX RETIRED XXX [address] [address] Social History Tobacco Use Types Packs/Day Years Used Date Smoking Tobacco: Never Assessed Sex and Gender Information Value Date Recorded Sex Assigned at Male 09/17/2018 5:00 PM CORRECTIONAL FACILITY PSYCHIATRIST Legal Sex Male 3:11 AM CORRECTIONAL FACILITY PSYCHIATRIST Gender Identity Male 09/17/2018 5:00 PM CORRECTIONAL FACILITY PSYCHIATRIST Sexual Orientation Straight 09/17/2018 5: 00 PM CORRECTIONAL FACILITY PSYCHIATRIST documented as of this encounter Plan of Treatment Not on file documented as of this encounter Visit Diagnoses Not on filedocumented in this encounter Additional Health Concerns Infection Onset Date Last Indicated Resolved Time COVID-19 08/27/2020 08/27/2020 09/17/2020 11:4 0 PM CORRECTIONAL FACILITY PSYCHIATRIST documented as of this encounter Care Teams Supervisor Net Making Relationship Specialty Start Date End Date Maya Goyal MD PCP - General 05/03/04 11/14/22 None PCP - General 12/01/02 05/02/04 Maya Goyal MD INACTIVE IN [place] 08/23/2024 PCP - Assigned PCP 10/22/09 11/26/18 No Ref-Primary, Physician PCP - General 11/15/22 Eva Mckenna RN Clinic Sintering Plant Supervisor Primary Care - CC 02/19/18 Maya Goyal MD Assigned PCP 06/27/12 10/17/23 Mehdi Sen MD [address] [place] [address] Assigned Musculoskeletal Provider 07/16/20 12/18/20 Erlin Delicd MD [address] [address] Assigned Surgical Provider 09/12/20 Elicia Bedoya, [facility] [address] [place] [address] [place] [address] Pharmacist Pharmacist 11/09/20 12/06/20 Kae Whipple [facility] [address] [place] [address] Pharmacist Pharmacist 11/30/20 12/06/20 Mehdi Bass DPM [id number] [place] [address] [address] [place] [address] Assigned Musculoskeletal Provider 08/14/21 10/27/22 Kae Whipple [facility] [address] [place] [address] Assigned MTM Pharmacist 03/18/22 Maya Goyal MD Assigned Pain Medication Provider 10/02/22 03/23/23 Mehdi Bass DPM [id number] [place] [address] [address] [place] [address] Assigned Surgical Provider 10/28/22 [facility] 303 [place] [address] Assigned PCP 10/18/23 12/13/24 documented as of this encounter
--- OUTSIDE RECORDS SUMMARY | 2025-06-28 14:47 | XMS_ITS | Encounter Summary ---
Author Organization [place] Address [address] [place] [address] Care Team Providers Care Macaroni Press Operator Name Role Phone Maya Goyal MD Primary Care Provider UnavailEva Brannon RN Unavailable [phone] Maya Goyal MD Unavailable Unavailable Maya Goyal MD Unavailable Unavailable Mehdi Sen MD Unavailable [phone] Erlin Delcid MD Unavailable [phone] Elicia Bedoya [facility] Unavailable [phone] Kae Whipple [facility] Unavailable Mehdi Bass DPM Unavailable [phone] Kae Whipple [facility] Unavailable [phone] Maya Goyal MD Unavailable Unavailable No Ref-Primary, Physician Primary Care Provider Mehdi BassM Unavailable [phone] [facility] Unavailable Encounter Details Date Type Department Care Team (Latest Contact Info) Description 08/29/2010 [facility] [address] [facility] [address] [facility] [address] [place] [address] Maya Goyal MD INACTIVE IN [place] 08/23/2024 BENIGN HYPERTENSION (Primary Dx) Social History Tobacco Use Types Packs/Day Years Used Date Smoking Tobacco: Every Day Cigarettes 0.5 20 Alcohol Use Standard Drinks/Week Comments Yes 0 (1 standard drink = 0.6 oz pur e alcohol) Social once every 3 months Sex and Gender Information Value Date Recorded Sex Assigned at Male 09/17/2018 5:00 PM RETAIL SALES REPRESENTATIVE Legal Sex Male 3:11 AM RETAIL SALES REPRESENTATIVE Gender Identity Male 09/17/2018 5:00 PM RETAIL SALES REPRESENTATIVE Sexual Orientation Straight 09/17/2018 5: 00 PM RETAIL SALES REPRESENTATIVE documented as of this encounter Plan of Treatment Not on file documented as of this encounter Visit Diagnoses Diagnosis BENIGN HYPERTENSION- Primary Essential hypertension, benign documented in this encounter Additional Health Concerns Infection Onset Date Last Indicated Resolved Time COVID-19 08/27/2020 08/27/2020 09/17/2020 11:4 0 PM RETAIL SALES REPRESENTATIVE documented as of this encounter Care Teams Macaroni Press Operator Relationship Specialty Start Date End Date Maya Goyal MD PCP - General 05/03/04 11/14/22 Maya Goyal MD INACTIVE IN [place] 08/23/2024 PCP - Assigned PCP 10/22/09 11/26/18 No Ref-Primary, Physician PCP - General 11/15/22 Eva Mckenna RN Clinic Storm Sash Maker Primary Care - CC 02/19/18 Maya Goyal MD Assigned PCP 06/27/12 10/17/23 Mehdi Sen MD 9 [place] [address] Assigned Musculoskeletal Provider 07/16/20 12/18/20 Erlin Delcid MD [address] [address] Assigned Surgical Provider 09/12/20 Elicia Bedoya, [facility] [address] [place] [address] 812 [place] [address] Pharmacist Pharmacist 11/09/20 12/06/20 Kae Whipple [facility] 303 [place] [address] Pharmacist Pharmacist 11/30/20 12/06/20 Mehdi Bass DPM [address] [place] [address] [address] [place] [address] Assigned Musculoskeletal Provider 08/14/21 10/27/22 Kae Whipple [facility] [address] [place] [address] Assigned MTM Pharmacist 03/18/22 Maya Goyal MD Assigned Pain Medication Provider 10/02/22 03/23/23 Mehdi Bass DPM [address] [place] [address] [place] [address] Assigned Surgical Provider 10/28/22 [facility] 303 [place] [address] Assigned PCP 10/18/23 12/13/24 documented as of this encounter
--- OUTSIDE RECORDS SUMMARY | 2025-06-28 14:47 | XMS_ITS | Encounter Summary ---
Author Organization [place] Address [address] [place] [address] Care Team Providers Care Pony Ride Attendant Name Role Phone Maya Goyal MD Primary Care Provider Unavailabl e None Primary Care Provider Unavailnikole e Eva Mckenna RN Unavailable [phone] Maya Goyal MD Unavailable Unavailable Maya Goyal MD Unavailable Unavailable Mehdi Sen MD Unavailable [phone] Erlin Delcid MD Unavailable [phone] Elicia Bedoya [facility] Unavailable [phone] Kae Whipple [facility] Unavailable [phone] Mehdi BassM Unavailable [phone] Kae Whipple [facility] Unavailable [phone] Maya Goyal MD Unavailable Unavailable No Ref-Primary, Physician Primary Care Provider Mehdi Bass DPM Unavailable [phone] [facility] Unavailable Encounter Details Date Type Department Care Team (Late st Contact Info) Description 01/25/2003 [facility] [address] [facility] [address] [place] [address] Maya Goyal MD INACTIVE IN [place] 08/23/2024 ER ENCOUNTER (Primary Dx) Social History [...] Sex Assigned at Male 09/17/2018 5:00 PM DISTILLERY WORKER Legal Sex Male 3:11 AM DISTILLERY WORKER Gender Identity Male 09/17/2018 5:00 PM DISTILLERY WORKER Sexual Orientation Straight 09/17/2018 5: 00 PM DISTILLERY WORKER documented as of this encounter Progress Notes * 01/25/2003 11:59 PM CDTAddended by: CAMERON MURRY on: 02/03/2003,11:27 AM Modules accepted: Progress Notes 00: 00 Emergency Department Encounter-[facility] () [Entered: 00:00 Transcri ption ([facility])] : 56 PRIMARY MD: Maya Goyal [...] No known d rug allergies. 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 [...] re-evaluation. [id number]_ EDWARD DICKINSON MD [place]: Document: [id number] [place], [place] Name: CASSIE RIVAS EMERGENCY ROOM ENCOUNTER Page 2 of 2 LCN: ERB DSC: [place], [place] Name: MR#: : Admit Date: CASSIE [...] COVID-19 08/27/2020 08/27/2020 09/17/2020 11:4 0 PM DISTILLERY WORKER documented as of this encounter Care Teams Pony Ride Attendant Relationship Specialty Start Date End Date Maya Goyal MD PCP - General 05/03/04 11/14/22 None PCP - General 12/01/02 05/02/04 Maya Goyal MD INACTIVE IN [place] 08/23/2024 PCP - Assigned PCP 10/22/09 11/26/18 No Ref-Primary, Physician PCP - General 11/15/22 Eva Mckenna, [facility] Sharemilker Primary Care - CC 02/19/18 Maya Goyal MD Assigned PCP 06/27/12 10/17/23 Mehdi Sen MD 9[address] [place] [address] Assigned Musculoskeletal Provider 07/16/20 12/18/20 Erlin Delcid MD [address] [facility] 500 [place] [address] Assigned Surgical Provider 09/12/20 Elicia Bedoya, [facility] [address] [facility] 812 [place] [address] Pharmacist Pharmacist 11/09/20 12/06/20 Kae Whipple [facility] [address] [place] [address] Pharmacist Pharmacist 11/30/20 12/06/20 [place] [address] [facility] [address] [place] [address] Assigned Musculoskeletal Provider 08/14/21 10/27/22 Kae Whipple [facility] 303 [place] [address] Assigned MTM Pharmacist 03/18/22 Maya Goyal MD Assigned Pain Medication Provider 10/02/22 03/23/23 Mehdi Bass DPM [address] [facility] 300 [place] [address] Assigned Surgical Provider 10/28/22 [facility] 303 [place] [address] Assigned PCP 10/18/23 12/13/24 documented as of this encounter
--- OUTSIDE RECORDS SUMMARY | 2025-06-28 14:47 | XMS_ITS | Encounter Summary ---
Author Organization [place] Address [address] [place] [address] Care Team Providers Care Hearing Care Professional Name Role Phone Maya Goyal MD Primary Care Provider Unavailabl Maya Stallworth MD Unavailable Unavailable Mehdi Sen MD Unavailable [phone] Erlin Delcid MD Unavailable [phone] Elicia Bedoya [facility] Unavailable [phone] Kae Whipple [facility] Unavailable Mehdi BassM Unavailable [phone] Kae Whipple [facility] Unavailable [phone] Maya Goyal MD Unavailable Unavailable No Ref-Primary, Physician Primary Care Provider Mehdi Bass DPM Unavailable [phone] [facility] Unavailable Reason for Visit * Reason Onset Date Comments MyChart Communication 09/29/2020 Encounter Details Date Type Department Care Team (Latest Contact Info) Description 09/29/2020 [facility] [address] [place] [address] Maya Goyal MD INACTIVE IN [place] 08/23/2024 MyChart Communication Social History Tobacco Use [...] Sex Assigned at Male 09/17/2018 5:00 PM EMR SPECIALIST Legal Sex Male 3:11 AM EMR SPECIALIST Gender Identity Male 09/17/2018 5:00 PM EMR SPECIALIST Sexual Orientation Straight 09/17/2018 5: 00 PM EMR SPECIALIST COVID-19 Exposure Response Date Recorded In the last month, have you been in contact with someone who was confirmed or suspected to have Coronavirus / COVID-19? Yes 09/07/2020 1:45 PM EMR SPECIALIST documented as of this encounter Miscellaneous Notes * Telephone Encounter - Rukhsana Yo RN - 09/29/2020 12:06 PM CST My chart message sent by patient. My chart message sent to patient. SPECIALIST * Telephone Encounter - Rukhsana Yo RN - 09/29/2020 11:34 AM CST My chart message sent by patient. My chart message sent to patient. SPECIALIST documented in this encounter Plan of Treatment Not on file documented as of this encounter Visit Diagnoses Not on filedocumented in this encounter Additional Health Concerns Assessment Noted Time PHQ-9 Depression Total Score: 10 020 8:55 AM CDT documented as of this encounter Care Teams Hearing Care Professional Relationship Specialty Start Date End Date Maya Goyal MD PCP - General 05/03/04 11/14/22 No Ref-Primary, Physician PCP - General 11/15/22 Maya Goyal MD Assigned PCP 06/27/12 10/17/23 Mehdi Sen MD [address] [place] [address] [place] [address] Assigned Musculoskeletal Provider 07/16/20 12/18/20 Erlin Delcid MD [address] [facility] 500 [place] [address] Assigned Surgical Provider 09/12/20 Elicia Bedoya, [facility] [address] [place] [address] 812 [place] [address] Pharmacist Pharmacist 11/09/20 12/06/20 Kae Whipple [facility] 303 [place] [address] Pharmacist Pharmacist 11/30/20 12/06/20 Mehdi Bass DPM [id number] [place] [address] [place] [address] Assigned Musculoskeletal Provider 08/14/21 10/27/22 Kae Whipple [facility] [address] [place] [address] Assigned MTM Pharmacist 03/18/22 Maya Gyoal MD Assigned Pain Medication Provider 10/02/22 03/23/23 Mehdi Bass DPM [address] [employer] [facility] [address] [place] [address] Assigned Surgical Provider 10/28/22 [facility] [address] [place] [address] Assigned PCP 10/18/23 documented as of this encounter
--- OUTSIDE RECORDS SUMMARY | 2025-06-28 14:47 | XMS_ITS | Encounter Summary ---
Author Organization [place] Address [address] [place] [address]. [place] [address] Care Team Providers Care Pcat Instructor Name Role Phone Maya Goyal MD Primary Care Provider UnavailMaya Vazquez MD Unavailable Unavailable Erlin Delcid MD Unavailable [phone] Mehdi Bass DPM Unavailable [phone] Kae Whipple [facility] Unavailable [phone] Maya Goyal MD Unavailable Unavailable No Ref-Primary, Physician Primary Care Provider Mehdi Bass DPM Unavailable [phone] [facility] Unavailable Encounter Details Date Type Department Care Team (Late st Contact Info) Description 01/12/2022 [facility] [place] [address] [place] [address] Maya Goyal MD INACTIVE IN [place] 08/23/2024 Social History Tobacco Use Types Packs/Day [...] Sex Assigned at Male 09/17/2018 5:00 PM BRINE MIXER OPERATOR Legal Sex Male 3:11 AM BRINE MIXER OPERATOR Gender Identity Male 09/17/2018 5:00 PM BRINE MIXER OPERATOR Sexual Orientation Straight 09/17/2018 5: 00 PM BRINE MIXER OPERATOR documented as of this encounter Plan of Treatment Not on file documented as of this encounter Visit Diagnoses Not on filedocumented in this encounter Additional Health Concerns Assessment Noted Time PHQ-9 Depression Total Score: 10 021 2:58 PM CDT documented as of this encounter Care Teams Pcat Instructor Relationship Specialty Start Date End Date Maya Goyal MD PCP - General 05/03/04 11/14/22 No Ref-Primary, Physician PCP - General 11/15/22 Maya Goyal MD Assigned PCP 06/27/12 10/17/23 Erlin Delcid MD [address] [address] Assigned Surgical Provider 09/12/20 [place] [address] [employer] [address] [place] [address] Assigned Musculoskeletal Provider 08/14/21 10/27/22 Kae Whipple [facility] [address] [place] [address] Assigned MTM Pharmacist 03/18/22 Maya Goyal MD Assigned Pain Medication Provider 10/02/22 03/23/23 Mehdi Bass DPM [address] [employer] [address] [place] [address] Assigned Surgical Provider 10/28/22 [facility] [place], [address] [address] Assigned PCP 10/18/23 12/13/24 documented as of this encounter
--- OUTSIDE RECORDS SUMMARY | 2025-06-28 14:47 | XMS_ITS | Encounter Summary ---
Author Organization [place] Address [address] [place] [address] Care Team Providers Care Waitress Name Role Phone Maya Goyal MD Primary Care Provider UnavailEva Brannon RN Unavailable [phone] Maya Goyal MD Unavailable Unavailable Maya Goyal MD Unavailable Unavailable Mehdi Sen MD Unavailable [phone] Erlin Delcid MD Unavailable [phone] Elicia Bedoya [facility] Unavailable [phone] Kae Whipple [facility] Unavailable Mehdi Bass DPM Unavailable [phone] Kae Whipple [facility] Unavailable [phone] Maya Goyal MD Unavailable Unavailable No Ref-Primary, Physician Primary Care Provider Mehdi BassM Unavailable [phone] [facility] Unavailable Encounter Details Date Type Department Care Team (Late st Contact Info) Description 10/17/2010 [facility] [address] [place] [address] [place] [address] aMya Goyal MD INACTIVE IN [place] 08/23/2024 Social History Tobacco Use Types Packs/Day Years Used Date Smoking Tobacco: Every Day Cigarettes 0.5 20 Alcohol Use Standard Drinks/Week Comments Yes 0 (1 standard drink = 0.6 oz pur e alcohol) Social once every 3 months Sex and Gender Information Value Date Recorded Sex Assigned at Male 09/17/2018 5:00 PM COUNSELOR CAMP Legal Sex Male 3:11 AM COUNSELOR CAMP Gender Identity Male 09/17/2018 5:00 PM COUNSELOR CAMP Sexual Orientation Straight 09/17/2018 5: 00 PM COUNSELOR CAMP documented as of this encounter Plan of Treatment Not on file documented as of this encounter Visit Diagnoses Not on filedocumented in this encounter Additional Health Concerns Infection Onset Date Last Indicated Resolved Time COVID-19 08/27/2020 08/27/2020 09/17/2020 11:4 0 PM COUNSELOR CAMP documented as of this encounter Care Teams Waitress Relationship Specialty Start Date End Date Maya Goyal MD PCP - General 05/03/04 11/14/22 Maya Goyal MD INACTIVE IN [place] 08/23/2024 PCP - Assigned PCP 10/22/09 11/26/18 No Ref-Primary, Physician PCP - General 11/15/22 Eva Mckenna RN Clinic Creative Engagement Director Primary Care - CC 02/19/18 Maya Goyal MD Assigned PCP 06/27/12 10/17/23 Mehdi Sen MD 9 [place], [place] [id number] Assigned Musculoskeletal Provider 07/16/20 12/18/20 Erlin Delcid MD [address] [address] Assigned Surgical Provider 09/12/20 Elicia Bedoya, [facility] [address] [place] [address] 812 [place], [place] [id number] Pharmacist Pharmacist 11/09/20 12/06/20 Kae Whipple [facility] 303 [place] [address] Pharmacist Pharmacist 11/30/20 12/06/20 Mehdi Bass DPM [id number] [place] [address] [address] [place] [address] Assigned Musculoskeletal Provider 08/14/21 10/27/22 Kae Whipple [facility] [address] [place] [address] Assigned MTM Pharmacist 03/18/22 Maya Goyal MD Assigned Pain Medication Provider 10/02/22 03/23/23 Mehdi Bass DPM [id number] [place] [address] [place] [address] Assigned Surgical Provider 10/28/22 [facility] 303 [place] [address] Assigned PCP 10/18/23 12/13/24 documented as of this encounter
--- OUTSIDE RECORDS SUMMARY | 2025-06-28 14:47 | XMS_ITS | Encounter Summary ---
Author Organization [facility] Address [address] [place] [address] Care Team Providers Care Project Engineer Name Role Phone Maya Goyal MD Primary Care Provider UnavailEva Brannon RN Unavailable [phone] Maya Goyal MD Unavailable Unavailable Maya Goyal MD Unavailable Unavailable Mehdi Sen MD Unavailable [phone] Erlin Delcid MD Unavailable [phone] Elicia Bedoya [facility] Unavailable [phone] Kae Whipple [facility] Unavailable Mehdi Bass DPM Unavailable [phone] Kae Whipple [facility] Unavailable [phone] Maya Goyal MD Unavailable Unavailable No Ref-Primary, Physician Primary Care Provider Mehdi BassM Unavailable [phone] [facility] Unavailable Encounter Details Date Type Department Care Team (Late st Contact Info) Description 12/13/2010 [facility] [place] [address] [place] [place] [address] [place] [address] Maya Goyal MD INACTIVE IN [place] 08/23/2024 Social History Tobacco Use Types Packs/Day Years Used Date Smoking Tobacco: Former Cigarettes 0.5 20 0 12/01/1990 - 12/01/2010 Smokeless Tobacco: Never Alcohol Use Standard Drinks/Week Comments Yes 0 (1 standard drink = 0.6 oz pur e alcohol) Social once every 3 months Sex and Gender Information Value Date Recorded Sex Assigned at Male 09/17/2018 5:00 PM PERIPHERAL EQUIPMENT OPERATOR Legal Sex Male 3:11 AM PERIPHERAL EQUIPMENT OPERATOR Gender Identity Male 09/17/2018 5:00 PM PERIPHERAL EQUIPMENT OPERATOR Sexual Orientation Straight 09/17/2018 5: 00 PM PERIPHERAL EQUIPMENT OPERATOR documented as of this encounter Plan of Treatment Not on file documented as of this encounter Visit Diagnoses Not on filedocumented in this encounter Additional Health Concerns Infection Onset Date Last Indicated Resolved Time COVID-19 08/27/2020 08/27/2020 09/17/2020 11:4 0 PM PERIPHERAL EQUIPMENT OPERATOR documented as of this encounter Care Teams Project Engineer Relationship Specialty Start Date End Date Maya Goyal MD PCP - General 05/03/04 11/14/22 Maya Goyal MD INACTIVE IN [place] 08/23/2024 PCP - Assigned PCP 10/22/09 11/26/18 No Ref-Primary, Physician PCP - General 11/15/22 Eva Mckenna RN Clinic Manager Actuarial Primary Care - CC 02/19/18 Maya Goyal MD Assigned PCP 06/27/12 10/17/23 Mehdi Sen MD [address] [place], [place] [id number] Assigned Musculoskeletal Provider 07/16/20 12/18/20 Erlin Delcid MD [address] [address] Assigned Surgical Provider 09/12/20 Elicia Bedoya, [facility] [address] [place] [address] Pharmacist Pharmacist 11/09/20 12/06/20 Kae Whipple [facility] [address] [place] [address] Pharmacist Pharmacist 11/30/20 12/06/20 Mehdi Bass DPM [address] [place] [address] [address] [place] [address] Assigned Musculoskeletal Provider 08/14/21 10/27/22 Kae Whipple [facility] [address] [place] [address] Assigned MTM Pharmacist 03/18/22 Maya Goyal MD Assigned Pain Medication Provider 10/02/22 03/23/23 Mehdi Bass DPM [id number] [place] [address] [place] [address] Assigned Surgical Provider 10/28/22 [facility] [address] [place] [address] Assigned PCP 10/18/23 12/13/24 documented as of this encounter
--- OUTSIDE RECORDS SUMMARY | 2025-06-28 14:47 | XMS_ITS | Encounter Summary ---
Author Organization [facility] Address [address] [place] [address] Care Team Providers Care Clinic Physician Name Role Phone Maya Goyal MD Primary Care Provider UnavailEva Brannon RN Unavailable [phone] Maya Goyal MD Unavailable Unavailable Maya Goyal MD Unavailable Unavailable Mehdi Sen MD Unavailable [phone] Erlin Delcid MD Unavailable [phone] Elicia Bedoya [facility] Unavailable [phone] Kae Whipple [facility] Unavailable [phone] Mehdi Bass DPM Unavailable [phone] Kae Whipple [facility] Unavailable [phone] Maya Goyal MD Unavailable Unavailable No Ref-Primary, Physician Primary Care Provider Mehdi BassM Unavailable [phone] [facility] Unavailable Encounter Details Date Type Department Care Team (Late st Contact Info) Description 08/26/2006 [facility] Malia Devlin [address] [place] [address] [place] [address] Maya Goyal MD INACTIVE IN [place] 08/23/2024 Social History Tobacco Use Types Packs/Day Years Used Date Smoking Tobacco: Every Day Cigarettes 0.5 20 Alcohol Use Standard Drinks/Week Comments Yes 0 (1 standard drink = 0.6 oz pur e alcohol) Social once every 3 months Sex and Gender Information Value Date Recorded Sex Assigned at Male 09/17/2018 5:00 PM BEAD WIRE TAPER Legal Sex Male 3:11 AM BEAD WIRE TAPER Gender Identity Male 09/17/2018 5:00 PM BEAD WIRE TAPER Sexual Orientation Straight 09/17/2018 5: 00 PM BEAD WIRE TAPER documented as of this encounter Plan of Treatment Not on file documented as of this encounter Visit Diagnoses Not on filedocumented in this encounter Additional Health Concerns Infection Onset Date Last Indicated Resolved Time COVID-19 08/27/2020 08/27/2020 09/17/2020 11:4 0 PM BEAD WIRE TAPER documented as of this encounter Care Teams Clinic Physician Relationship Specialty Start Date End Date Maya Goyal MD PCP - General 05/03/04 11/14/22 Maya Goyal MD INACTIVE IN [place] 08/23/2024 PCP - Assigned PCP 10/22/09 11/26/18 No Ref-Primary, Physician PCP - General 11/15/22 Eva Mckenna RN Clinic Shipyard Painting Supervisor Primary Care - CC 02/19/18 Maya Goyal MD Assigned PCP 06/27/12 10/17/23 Mehdi Sen MD [address] [place], [place] [id number] Assigned Musculoskeletal Provider 07/16/20 12/18/20 Erlin Delcid MD [address] [id number] Assigned Surgical Provider 09/12/20 Elicia Bedoya, [facility] [address] [place] [address] [address] [place], [place] [id number] Pharmacist Pharmacist 11/09/20 12/06/20 Kae Whipple [facility] [address] [place] [address] Pharmacist Pharmacist 11/30/20 12/06/20 Mehdi Bass DPM [id number] [place] [address] [address] [place] [address] Assigned Musculoskeletal Provider 08/14/21 10/27/22 Kae Whipple [place] [address] [place] [address] Assigned MTM Pharmacist 03/18/22 Maya Goyal MD Assigned Pain Medication Provider 10/02/22 03/23/23 Mehdi Bass DPM [id number] [place] [address] [place] [address] Assigned Surgical Provider 10/28/[address] [facility] [address] [place] [address] Assigned PCP 10/18/23 12/13/24 documented as of this encounter
--- OUTSIDE RECORDS SUMMARY | 2025-06-28 14:47 | XMS_ITS | Clinical Summary ---
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 Name Role Phone Shar Hoff MD Unavailable [phone] Doctor, No Primary Care Provider Unavailabl e [...] history exists COVID-19 Vaccine ( - season) 2025 Influenza Vaccine (#1) 2025 08/04/2003 Adult Tetanus [...] - 145 mMol/L 07/19/2016 5:16 AM CDT [facility] Potassium 4.0 3.5 - 5.1 mMol/L 07/19/2016 5:16 AM CDT [facility] Chloride 104 98 - 112 mMol/L 07/19/2016 5:16 AM CDT [facility] Carbon Dioxide 25 21 - 32 mMol/L 07/19/2016 5:16 AM T [facility] BUN (Urea Nitro) 17 7 - 24 mg/dL 07/19/2016 5:16 AM T [facility] Creatinine 0.83 0.70 - 1.30 mg/dL 07/19/2016 5:16 AM T [facility] Est GFR (CKD-EPI) >60 >60 mL/min 07/19/2016 5:16 AM T [facility] EST GFR IF AM >60 >60 mL/min 07/19/2016 5:16 AM T [facility] Glucose 99 74 - 106 mg/dL 07/19/2016 5:16 AM T [facility] Calcium, Serum 8.4(L) 8.5 - 10.1 mg/dL 07/19/2016 5:16 AM T [facility] Anion Gap 11.0 0.0 - 15.0 mMol/L 07/19/2016 5:16 AM T [facility] Blood 07/19/2016 4:45 AM CDT 07/19/2016 4:48 AM CDT us Brigette Pena MD CHEMISTRY ORDERABLE Final Re sult [facility] [address] [place] [address] from Last 3 Months or Most Recently Relevant to Health Maintenance Insurance [facility] Address: [facility] [address] [place] [address] [facility] Advance Directives For more information, please contact: [phone] * Full Code (Latest Code Status on File) Date Activated Date Inactivated Comments 07/19/2016 6:14 AM 07/19/2016 4:02 PM Question Answer Comments How was code status determined? Patient Care Teams Horseback Riding Instructor Relationship Specialty Start Date End Date Doctor, No No ad PCP - General Radiology 01/01/23 Shar Hoff MD [address] [place] [address] [place] [address] Neurology 01/01/23
--- OUTSIDE RECORDS SUMMARY | 2025-06-28 14:47 | XMS_ITS | Encounter Summary ---
Author Organization [facility] Address [address] [place] [address] Care Team Providers Care Hypo Splasher Name Role Phone Maya Goyal MD Primary Care Provider Unavailabl e None Primary Care Provider Unavailnikole e Eva Mckenna RN Unavailable [phone] Maya Goyal MD Unavailable Unavailable Maya Goyal MD Unavailable Unavailable Mehdi Sen MD Unavailable [phone] Erlin Delcid MD Unavailable [phone] Elicia Bedoya [facility] Unavailable [phone] Kae Whipple [facility] Unavailable [phone] Mehdi BassM Unavailable [phone] Kae Whipple [facility] Unavailable [phone] Maya Goyal MD Unavailable Unavailable No Ref-Primary, Physician Primary Care Provider Mehdi BassM Unavailable [phone] [facility] Unavailable Encounter Details Date Type Department Care Team (Late st Contact Info) Description 12/15/2002 [facility] [address] [facility] [address] [place] [address] Maya Goyal MD INACTIVE IN [place] 08/23/2024 ER ENC (Primary Dx) Social History [...] Sex Assigned at Male 09/17/2018 5:00 PM SPONGE PACKER Legal Sex Male 3:11 AM SPONGE PACKER Gender Identity Male 09/17/2018 5:00 PM SPONGE PACKER Sexual Orientation Straight 09/17/2018 5: 00 PM SPONGE PACKER documented as of this encounter Progress Notes * 12/15/2002 11:59 PM [id number] 00:00 Emergency Department Encounter-[facility] TRACY BYRNE) [Entered: 00:00 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 HISTORY OF PRESENT ILLNESS: Rafa Hickey is a 42-year-old white male who comes to us from [facility] [employer] where he was working out on the [employer]. Apparently his friend pulled the tug away [...] HISTORY: The patient has worked [employer] for the last eighteen years. REVIEW OF [...] up and follow-up in two days at [facility] f or clearance for work. He may be able to return to light duty with his left hand. He was given appr opriate work slips to follow-up. DIAGNOSIS: 1) Soft tissue trauma, right wrist with questionable raysa icular fracture, under evaluation. 2) Workman's Comp related. _ TRACY BYRNE MD MT: Document: [id number] Electronically filed by Stella Paul 12/18 11:45 AM documented in this encounter Plan of Treatment Not on file documented as of this encounter Visit Diagnoses Diagnosis ER ENC- Primary documented in this encounter Additional Health Concerns Infection Onset Date Last Indicated Resolved Time COVID-19 08/27/2020 08/27/2020 09/17/2020 11:4 0 PM SPONGE PACKER documented as of this encounter Care Teams Hypo Splasher Relationship Specialty Start Date End Date Maya Goyal MD PCP - General 05/03/04 11/14/22 None PCP - General 12/01/02 05/02/04 Maya Goyal MD INACTIVE IN [place] 08/23/2024 PCP - Assigned PCP 10/22/09 11/26/18 No Ref-Primary, Physician PCP - General 11/15/22 Eva Mckenna RN Clinic Noteman Primary Care - CC 02/19/18 Maya Goyal MD Assigned PCP 06/27/12 10/17/23 Mehdi Sen MD [address] [place] [address] Assigned Musculoskeletal Provider 07/16/20 12/18/20 Erlin Delcid MD [address] [id number] Assigned Surgical Provider 09/12/20 Elicia Bedoya [facility] [address] [place] [address] [place] [address] Pharmacist Pharmacist 11/09/20 12/06/20 Kae Whipple [facility] [address] [place] [address] Pharmacist Pharmacist 11/30/20 12/06/20 Mehdi Bass DPM [id number] [place] [address] [place] [address] Assigned Musculoskeletal Provider 08/14/21 10/27/22 Kae Whipple [facility] [address] [place] [address] Assigned MTM Pharmacist 03/18/22 Maya Goyal MD Assigned Pain Medication Provider 10/02/22 03/23/23 Mehdi Bass DPM [id number] [address] [place] [address] [place] [address] Assigned Surgical Provider 10/28/22 [facility] [place] [address] Assigned PCP 10/18/23 12/13/24 documented as of this encounter
[2025-06-28 14:48] VITALS: BP 123/62; PULSE 61; PULSE 72; RESP 16; RESP 20; O2SAT 89; BMI 40.4
--- NOTE | 2025-06-28 15:00 | ED.ABDPAIN ---
HPI - Abdominal Pain General Time Seen by Provider: 15:00 Date Seen: 06/28/25 Chief Complaint: Abdominal Pain Stated Complaint: possible bowel obstruction Time Seen by Provider: 06/28/25 15:00 Source: patient, EMS and RN notes reviewed Mode of arrival: EMS Limitations: no limitations History of Present Illness HPI narrative: This 65yo male comes in by [facility] with complaint of abdominal pain, constipation but had defecation en route after taking Miralax, inability to urinate for 1 day now. Patient was initially concerned he had a bowel obstruction. He admits that he has been having constipation, has oxycodone in his med rec. He did take MiraLax and the did stool in route. No nausea or vomiting. He on arrival was demanding to be placed on the ER bed immediately, told nursing staff that he wanted a catheter immediately. He had a right total knee arthroplasty that became infected postoperatively. He has a PICC line in place and is getting 3 g of Ancef q.8 hours at this time. EMS noted that he has wounds on his toes, hair stuck to the toes. EMS did put an IV in his right antecubital fossa and gave him 50 mcg of fentanyl EN route. He dislodged his IV tossing and turning on the ER bed en route. Patient is denying nausea vomiting, is in significant pain and is wanting a Atkinson catheter, nursing staff is doing a bladder scan when I am at his bedside, is showing over 500 mL. He wants Atkinson catheterization which nursing staff will work on expeditiously. There is no fevers or chills. Related Data Home Medications ?Medication ?Instructions ?Recorded ?Confirmed metformin 500 mg tablet 1,000 mg PO BID 06/28/23 05/20/25 pen needle, diabetic 31 gauge x #1,200 ea 06/28/23 05/20/25/16 (UltiCare Pen Needle) carvedilol 25 mg tablet 50 mg PO BID 05/03/24 05/20/25 furosemide 20 mg tablet 20 mg PO QAM 05/03/24 05/20/25 empagliflozin 25 mg tablet 25 mg PO DAILY 11/23/24 05/20/25 (Jardiance) acetaminophen 500 mg tablet 1,000 mg PO Q6H 05/20/25 05/20/25 aspirin 81 mg tablet,delayed 81 mg PO BID 05/20/25 05/20/25 release blood-glucose sensor (Dexcom G7 05/20/25 05/20/25 Sensor device) duloxetine 30 mg capsule,delayed 30 mg PO DAILY 05/20/25 05/20/25 release gabapentin 300 mg capsule 300 mg PO 3XD 05/20/25 05/20/25 insulin aspart U-100 100 unit/mL 10 unit subcut BID 05/20/25 05/20/25 (3 mL) subcutaneous pen insulin degludec 200 unit/mL (3 77 unit subcut QPM 05/20/25 05/20/25 mL) subcutaneous pen (Tresiba FlexTouch U-200 insulin) lisinopril 20 1 tab PO DAILY 05/20/25 05/20/25 mg-hydrochlorothiazide 25 mg tablet oxycodone 5 mg tablet 5 mg PO Q12H 05/20/25 05/20/25 pantoprazole 40 mg tablet,delayed 40 mg PO DAILY 05/20/25 05/20/25 release rosuvastatin 10 mg tablet 10 mg PO QPM 05/20/25 05/20/25 trazodone 100 mg tablet 100 mg PO HS 05/20/25 05/20/25 duloxetine 60 mg capsule,delayed 60 mg PO DAILY 05/21/25 05/21/25 release Allergies Allergy/AdvReac Type Severity Reaction Status Date / Time No Known Drug Allergies Allergy Verified 05/20/25 22:59 Review of Systems Narrative As per HPI. [facility] Medical History (Updated 06/28/25 @ 16:21 by Yoko Daly MD) Hamstring injury ?S76.309A - Unspecified injury of muscle, fascia and tendon of the posterior muscle group at thigh level, unspecified thigh, initial encounter (ICD-10) Chronic pain ?G89.29 - Other chronic pain (ICD-10) Opioid dependence ?F11.20 - Opioid dependence, uncomplicated (ICD-10) Type 2 diabetes mellitus with stage 1 chronic kidney disease, without long-term current use of insulin ?E11.22 - Type 2 diabetes mellitus with diabetic chronic kidney disease (ICD-10) ?N18.1 - Chronic kidney disease, stage 1 (ICD-10) Peripheral neuropathy ?G62.9 - Polyneuropathy, unspecified (ICD-10) 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 mellitus, limited to breakdown of skin ?E11.621 - Type 2 diabetes mellitus with foot ulcer (ICD-10) ?L97.501 - Non-pressure chronic ulcer of other part of unspecified foot limited to breakdown of skin (ICD-10) Ectatic abdominal aorta ?I77.811 - Abdominal aortic ectasia (ICD-10) Hypertriglyceridemia ?E78.1 - Pure hyperglyceridemia (ICD-10) Primary osteoarthritis of both knees ?M17.0 - Bilateral primary osteoarthritis of knee (ICD-10) Controlled substance agreement signed ?Z79.899 - Other senior living (current) drug therapy (ICD-10) Depression ?F32.A - Depression, unspecified (ICD-10) Lesion of ulnar nerve, unspecified upper limb ?G56.20 - Lesion of ulnar nerve, unspecified upper limb (ICD-10) Lesion of sciatic nerve ?G57.00 - Lesion of sciatic nerve, unspecified lower limb (ICD-10) Hyperlipidemia ?E78.5 - Hyperlipidemia, unspecified (ICD-10) Left hamstring injury ?S76.302A - Unspecified injury of muscle, fascia and tendon of the posterior muscle group at thigh level, left thigh, initial encounter (ICD-10) Facet arthritis of cervical region ?M47.812 - Spondylosis without myelopathy or radiculopathy, cervical region (ICD-10) Foot drop, left foot ?M21.372 - Foot drop, left foot (ICD-10) Benign essential hypertension ?I10 - Essential (primary) hypertension (ICD-10) Anxiety about blushing ?R45.89 - Other symptoms and signs involving emotional state (ICD-10) Surgical History History of total knee arthroplasty ?Z96.659 - Presence of unspecified artificial knee joint (ICD-10) History of right knee surgery ?Z98.890 - Other specified postprocedural states (ICD-10) History of left knee surgery ?Z98.890 - Other specified postprocedural states (ICD-10) Status post total knee replacement, right ?Z96.651 - Presence of right artificial knee joint (ICD-10) Social History Smoking Status: Current some day smoker Do you use any of these nicotine containing products: Vaping Products Second hand tobacco smoke exposure: No How often do you have a drink containing alcohol: 2-3 times a week How often do you have six or more drinks on one occasion: Weekly AUDIT-C Alcohol total score: 6 Non-prescribed substance use: denies use Exam Const: Vital Signs, click to edit/add: Vital Signs - 24 hr 06/28/25 14:48 06/28/25 14:48 06/28/25 15:09 Temperature Pulse Rate 61 Pulse Rate [Pulse Oximeter] 72 Respiratory Rate 20 16 Blood Pressure 123/62 Blood Pressure [Ri ght Upper Arm] 123/62 Pulse Oximetry 89 89 92 Oxygen Delivery Me thod Room Air Room Air 06/28/25 15:17 06/28/25 16:00 06/28/25 16:15 Temperature 97.5 F L Pulse Rate 70 68 Pulse Rate [Pulse Oximeter] Respiratory Rate Blood Pressure Blood Pressure [Ri ght Upper Arm] Pulse Oximetry 89 Oxygen Delivery Me thod 06/28/25 16:50 Temperature Pulse Rate 72 Pulse Rate [Pulse Oximeter] Respiratory Rate 16 Blood Pressure 154/81 H Blood Pressure [Ri ght Upper Arm] Pulse Oximetry 96 Oxygen Delivery Me thod Room Air This 65-year-old male is uncomfortable, had defecation of stool. He has superficial abrasions over the tops of his toes on multiple toes, hair stuck to these wounds, there is no erythema or warrant or drainage. He has bandaging over the scar anteriorly over his right knee, no significant surrounding erythema, no active drainage noted. No significant lower extremity edema at this time. Abdomen is obese, he is tender when I palpate throughout his abdomen, bowel sounds are present. Lungs are clear, no wheezing or crackles, no tachypnea, no accessory muscle use. CV regular rate and rhythm, no murmur, normal S1-S2. Documenting provider has reviewed patient's vital signs: yes Course Course ED Course: Patient has obvious urinary retention, we will place a Atkinson catheter. Have ordered a full complement of labs. His initial O2 sat is 89% and could be the fentanyl. Will monitor, will get EKG, portable chest x-ray, look at troponin, proBNP. He is certainly more lucid than when I remember him before transfer with his knee for the infection. I have met him before. We will see if he needs further workup for his abdominal pain once the urinary retention has resolved. He could have constipation 2 fold from the urinary retention and narcotic use. He did have large liquidy stool and route. Doubt that he has a bowel obstruction at this time but will consider this if he has ongoing pain once urinary retention has resolved. Reevaluation(s) Time of Reevaluation #1: 15:30 Reevaluation #1: Chest x-ray had been ordered but patient refused. He initially was 89% on room air on arrival but did receive fentanyl from EMS. Will continue to monitor, lungs were clear. He also had drained about 2500 mL of urine within 10 minutes, nursing staff is instructed to clamp the catheter. Will resume drainage should about 1/2 hour. He did have a subsequent 92% room air O2 sat after awhile here. Time of Reevaluation #2: 16:17 Reevaluation #2: Patient was resting comfortably, is minimally hypoxic in the upper 80s but no apnea when sleeping. Arouses easily. He states he is feeling better, no abdominal pain since his bladder retention has resolved. He is willing to leave the catheter in. On re-evaluation of his abdomen, he is completely nontender, does have some obesity but he has no tenderness anywhere. We did discuss that to the issues he was having with his bowels could have been confounded by urinary retention. He did have defecation and route in the ambulance, had taken MiraLax at home which obviously did help. He is not having any symptoms now. Patient was noted to go up into the lower 90s when awake. Vital Signs Vital signs: Initial Vital Signs Pulse Rate 61 06/28/25 14:48 Respiratory Rate 20 06/28/25 14:48 Blood Pressure 123/62 06/28/25 14:48 Blood Pressure Mean 82 06/28/25 14:48 Blood Pressure Position Left Lateral 06/28/25 14:48 Pulse Oximetry 89 06/28/25 14:48 Oxygen Delivery Method Room Air 06/28/25 14:48 Vital Signs Pulse Rate 61 06/28/25 14:48 Respiratory Rate 20 06/28/25 14:48 Blood Pressure 123/62 06/28/25 14:48 Pulse Oximetry 89 06/28/25 14:48 Oxygen Delivery Method Room Air 06/28/25 14:48 Temperature 97.5 F L 06/28/25 15:17 Pulse Rate 72 06/28/25 16:50 Respiratory Rate 16 06/28/25 16:50 Blood Pressure 154/81 H 06/28/25 16:50 Pulse Oximetry 96 06/28/25 16:50 Oxygen Delivery Method Room Air 06/28/25 16:50 MDM - Abdominal Pain Lab Data Attestation: I reviewed the patient's lab results. Lab results narrative: Sodium was 132 on 05/20/2025. Labs: Lab Results 06/28/25 06/28/25 Range/Units 15:15 15:20 WBC 10.24 (4.50-11.00) K/uL RBC 3.59 L (4.30-5.90) m/uL Hgb 10.8 L (13.5-17.5) gm/dL Hct 32.9 L (37.0-53.0) % MCV 92 (80-100) fL MCH 30 (26-34) pg MCHC 33 (32-36) gm/dL RDW Coeff of Jerardo 13.9 (11.5-15.5) % Plt Count 247 (140-440) K/uL Neut % (Auto) 82.3 H (42.0-72.0) % Lymph % (Auto) 7.6 L (20-44) % Roberts % (Auto) 8.4 (0.0-11.0) % Eos % (Auto) 1.0 (0.0-7.0) % Baso % (Auto) 0.6 (0.0-3.0) % Neut # (Auto) 8.40 H (1.7-7.0) K/uL Lymph # (Auto) 0.80 L (0.90-2.90) K/uL Roberts # (Auto) 0.90 (0.00-0.90) K/UL Eos # (Auto) 0.10 (0.00-0.50) K/uL Baso # (Auto) 0.06 (0.00-0.30) K/uL Abs Immat Gran (auto) 0.01 (0.00-0.30) K/uL Imm/Tot Granulo (auto) 0.1 % VBG pH 7.423 (7.32-7.43) VBG pCO2 51 H (40-50) mmHG VBG pO2 38.8 (25-47) mmHG VBG HCO3 33 H (21-28) mmol/L Sodium 129 L (135-149) mmol/L Potassium 3.5 L (3.6-5.1) mmol/L Chloride 87 L (96-114) mmol/L Carbon Dioxide 34 H (20-32) mmol/L Anion Gap 8 (7-15) mEq/L BUN 34 H (7-30) mg/dL Creatinine 1.1 (0.5-1.5) mg/dL Estimated Creat Clear 75.77 Estimated GFR 74 ml/min Glucose 113 (60-115) mg/dL Lactate 0.9 (0.5-1.9) mmol/L Calcium 9.0 (8.4-10.6) mg/dL Total Bilirubin 0.4 (0.1-1.5) mg/dL AST 25 (12-35) U/L ALT 5 (4-50) U/L Alkaline Phosphatase 76 (40-150) U/L Troponin I < 0.01 (0.01-0.04) ng/mL C-Reactive Protein 2.0 H (0.5-1.0) mg/dL NT-Pro-B Natriuret Pep 870 H (See Note) pg/mL Total Protein 7.6 (6.0-8.3) g/dL Albumin 4.1 (3.3-5.0) g/dL Lipase 168 (23-300) U/L Urine Color Yellow (Yellow) Urine Appearance Cloudy A (Clear) Urine pH 6.0 (5.0-8.5) Ur Specific [place] 1.015 (1.000-1.030) Urine Protein 1+ A (Negative) Urine Glucose (UA) 1+ A (Negative) Urine Ketones Negative (Negative) Urine Blood Negative (Negative) Urine Nitrite Negative (Negative) Urine Bilirubin Negative (Negative) Urine Urobilinogen 0.2 (0.2-1.0) Ur Leukocyte Esterase Negative (Negative) Urine RBC 0-2 (0-2) Urine WBC 0-2 (0-5) Urine WBC Clumps None (None) Ur Squamous Epith Cells None (None-Few) Urine Bacteria Few A (None) ECG Data Attestation: I personally reviewed and interpreted this ECG as follows: (Normal sinus rhythm with sinus arrhythmia, 60 beats per minute. Q-waves in 3 and AVF but normal in lead 2. No active ST segment change or T-wave abnormality outside of flipped T-wave in lead 3.) ECG interpretation date: 06/28/25 ECG interpretation time: 15:47 Prior ECG tracings: available for review Discharge Plan Discharge Clinical Impression: Acute urinary retention Patient Disposition: Home, Self-Care Condition: Improved Instructions: Urinary Retention in Men (ED), Atkinson Catheter Placement and Care (ED) Additional Instructions: You really need to follow-up with your primary care provider within the next week, discuss referral to Urology, can talk to them about a trial of catheter removal. Can continue with MiraLax per bottle directions if needed for further constipation. Do recommend talking to your primary care provider about sleep study testing as well, it is noted when you sleep your oxygen goes mildly low. You need to take better care of your feet, please wash and dry them daily. Would put bandages with Vaseline or bacitracin on the toes with abrasions . Have your primary care provider look at your feet as well. You need to watch closely for infection. Prescriptions: No Action metformin 500 mg tablet 1,000 mg PO BID (DME) pen needle, diabetic [UltiCare Pen Needle] 31 gauge x 5/16 needle See Rx Instructions .ROUTE DIRECTED Qty: 1200 Rx Instructions: As directed Jardiance 25 mg tablet 25 mg PO DAILY carvedilol 25 mg tablet 50 mg PO BID furosemide 20 mg tablet 20 mg PO QAM pantoprazole 40 mg tablet,delayed release (DR/EC) 40 mg PO DAILY oxycodone 5 mg tablet 5 mg PO Q12H aspirin 81 mg tablet,delayed release (DR/EC) 81 mg PO BID acetaminophen 500 mg tablet 1,000 mg PO Q6H gabapentin 300 mg capsule 300 mg PO 3XD lisinopril-hydrochlorothiazide 20-25 mg tablet 1 tab PO DAILY insulin aspart U-100 100 unit/mL (3 mL) insulin pen 10 unit subcut BID duloxetine 30 mg capsule,delayed release(DR/EC) 30 mg PO DAILY (DME) Surfingbird G7 Sensor Device MISCELLANEOUS Q10D insulin degludec [Tresiba FlexTouch U-200] 200 unit/mL (3 mL) insulin pen 77 unit subcut QPM trazodone 100 mg tablet 100 mg PO HS Rx Instructions: take 1-1.5 tablets at bedtime rosuvastatin 10 mg tablet 10 mg PO QPM duloxetine 60 mg capsule,delayed release(DR/EC) 60 mg PO DAILY Rx Instructions: IN ADDITION TO 30 MG DOSE. Follow Up/Referrals: Caryl Shi DO [Primary Care Provider, Family Practice] Stand Alone Forms: [facility] Info Instructions Procedures ABG Interpretation ABG Results: 06/28/25 15:20 VBG pH 7.423 VBG pCO2 51 H VBG pO2 38.8 VBG HCO3 33 H
[2025-06-28 15:09] VITALS: O2SAT 92
[2025-06-28 15:17] VITALS: TEMP 36.4
[2025-06-28 15:22] LABS: Appearance Urine Cloudy (Clear)
[2025-06-28 15:37] LABS: HCO3 VBG 33 mmol/L (21-28); Hematocrit* 32.9 % (37.0-53.0); Hemoglobin* 10.8 gm/dL (13.5-17.5); Immature Granulocytes Abs Auto 0.01 K/uL (0.00-0.30); Immature Granulocytes Pct Auto 0.1 %; Lactate* 0.9 mmol/L (0.5-1.9); Mean Corpuscular HGB Conc 33 gm/dL (32-36); Mean Corpuscular Hemoglobin 30 pg (26-34); Mean Corpuscular Volume 92 fL (80-100); PCO2 VBG 51 mmHG (40-50); PO2 VBG 38.8 mmHG (25-47); RDW Coefficient of Variation % 13.9 % (11.5-15.5); Red Blood Count* 3.59 m/uL (4.30-5.90); White Blood Count* 10.24 K/uL (4.50-11.00); pH VBG 7.423 (7.32-7.43)
[2025-06-28 15:39] LABS: Lymphocytes Absolute Auto 0.80 K/uL (0.90-2.90)
[2025-06-28 15:40] LABS: Slide Review Reflex No
[2025-06-28 15:57] LABS: Albumin* 4.1 g/dL (3.3-5.0); Chloride* 87 mmol/L (96-114); Potassium* 3.5 mmol/L (3.6-5.1); Sodium* 129 mmol/L (135-149)
[2025-06-28 15:59] LABS: Alanine Aminotransferase* 5 U/L (4-50); Aspartate Amino Transferase* 25 U/L (12-35); Blood Urea Nitrogen* 34 mg/dL (7-30); Creatinine* 1.1 mg/dL (0.5-1.5); Est. Creatinine Clearance* 75.77; Estimated Glomerular Filt Rate 74 ml/min
[2025-06-28 16:00] VITALS: PULSE 70; O2SAT 89
[2025-06-28 16:00] LABS: Alkaline Phosphatase* 76 U/L (40-150); Anion Gap 8 mEq/L (7-15); Bilirubin Total* 0.4 mg/dL (0.1-1.5); Calcium* 9.0 mg/dL (8.4-10.6); Carbon Dioxide* 34 mmol/L (20-32); Glucose* 113 mg/dL (60-115); Total Protein* 7.6 g/dL (6.0-8.3)
[2025-06-28 16:08] LABS: NT Pro B Type NatriureticPept* 870 pg/mL (See Note)
[2025-06-28 16:15] VITALS: PULSE 68
[2025-06-28 16:50] VITALS: BP 154/81; PULSE 72; RESP 16; O2SAT 96
--- OUTSIDE RECORDS SUMMARY | 2025-06-28 16:54 | XMS_ITS | Data Portability ---
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 Role Phone AMANDEEP TODD Primary Care [...] Orders finasteride 5 mg tablet 2022 023 [email or web address] [address] [place], [address], 15:52:06 tamsulosin 0.4 mg capsule 2022 023 [facility] [address], [address], [place], [address], 3 15:52:06 tamsulosin 0.4 mg capsule 2022 023 [facility] [address], [address], [place], [address], 3 10:23:19 finasteride 5 mg tablet 2022 023 [facility] [address], [address], [place], [address], 3 10:23:19 Patient TargetsNo targets recorded. Patient [...] Time 3 Bladder Scan completed Asuncion Batres [facility] 12/27/2022 10:13:26 2 Bladder Scan completed Gris Dwyer [facility] 05/31/2022 11:23:55 9 [facility] 11:23:05 Imaging Results None recorded. [...] Updated DateTime 12/27/2022 187.96 cm 41.2 kg/m2 341205.15 g Asuncion Batres [facility] 12/27/2022 10:15:31 Date Recorded Body height Body mass index (BMI) Body weight Provider Name and Address Organization Details Last Updated DateTime 05/30/2023 187.96 cm 41.2 kg/m2 269860.15 g Dhaval Cruz MD [address] [place] [address], [id number] [place] [address] [facility] 05/30/2023 15:20:19 Date Recorded Body height Body mass index (BMI) Body weight Provider Name and Address Organization Details Last Updated DateTime 05/31/2022 187.96 cm 41.2 kg/m2 027021.15 cinthia Gris Yuliya [facility] 05/31/2022 11:22:11 Social History Question Answer Notes LastModified by Organizat ion Details LastModified Time Tobacco Smoking Status Former Smoker Grisshama Escuderomaya pepe [facility] 05/31/2022 11:22:52 What Is Your Level [...] Time Tdap 06/24/2010 completed Dhaval Cruz MD [address] [place] [address],[address], [address], [facility] 05/30/2023 15:20:28 Tdap 07/19/2016 completed Dhaval Cruz MD [address] [place] [address],[address], [address], [facility] 05/30/2023 15:20:28 Hep A-Hep B 12/28/2010 completed Dhaval Cruz MD [address] [place] [address],[address] [facility], [place], [address], [facility] 05/30/2023 15:20:28 Hep A-Hep B 06/24/2010 completed Dhaval Cruz MD [address] [place] [address],[address], [address], [facility] 05/30/2023 15:20:28 Hep A-Hep B 07/25/2010 completed Dhaval Cruz MD [address] [place] [address],[address], [place], [address], [facility] 05/30/2023 15:20:28 zoster recombinant 10/23/2022 completed Oumou pepe, [facility] 07/25/2023 13:14:35 zoster recombinant 12/25/2022 completed Oumou pepe, [facility] 07/25/2023 13:14:35 Past Encounters Encounter ID Performer Location Encounter Start Date Encounter Closed Date Diagnosis/Indication Diagnosis SNOMED-CT Code Diagnosis ICD10 Code Diagnosis IMO Codes Diagnosis Note [id number] MD TANNER Rao_Maria Eugenia [address] [place] [address] 05/31/2022 11:07:00 06/05/2022 15:44:25 Increased frequency of urination 987407629 R35.0 - UroFlow at next visit - PVR today 0 ml - AUA SS: 19 (QOL 3) -We will continue current course of action with combinatio n therapy. Follow-up in 1 year Nocturia 590136361 R35.1 - As above Urgent cheyanne carlyle to urinate 77499866 R39.15 - As above [id number] MD TANNER Rao_Maria Eugenia [address] [place] [address] 12/27/2022 10:02:20 12/29/2022 11:02:58 Increased frequency of urination 308951048 R35.0 - Obtain UroCuff - PVR today 4 ml - AUA SS: 28 (2) [Previous visit: 19 (QOL 3)] - Restart combinatio n therapy, follow up in 3 months with UroCuff Nocturia 256227745 R35.1 - As above Urgent cheyanne carlyle to urinate 39325807 R39.15 - As above [id number] Dhaval Cruz MD [facility] [address] [place] [address] 03/29/2023 12:04:24 04/04/2023 09:06:12 [id number] Dhaval Cruz MD [facility] [address] [place] [address] 04/05/2023 09:56:42 04/13/2023 07:37:49 [id number] Dhaval Cruz MD [facility] [address] [place], [place] [address] 05/30/2023 15:13:21 06/05/2023 12:26:38 Increased frequency of urination 794972421 R35.0 - Unable to complete UroCuff - PVR [previous visit: 4 ml] - AUA SS: 9 (QOL 3) [Previous visit: 28 (2)] -Continue combinatio n therapy Nocturia 297517281 R35.1 - As above Urgent cheyanne carlyle to urinate [id number] R39.15 - As above Health Concerns Section Related Observation LastModified by Organization Detai ls LastModified Time None Recorded Concern Status LastModified by Organization Details LastModified Time None Recorded Advance Directives Directive None Recorded Payers Insurance Date Sequence Insurance Name Policy Number Policy Dobson Covered Member ID Dobson Member ID Guarantor Name 05/30/2023 1 [facility] [id number] Rafa Hickey [id number] Rafa Hickey 06/05/2023 1 [employer] (MEDICARE REPLACEMENT/A DVANTAGE - [facility]) Rafa Hickey Jr [id number] Rafa Hickey Notes Date Note Type Note [...] who provides some history. Dhaval Cruz MD [address] [place] [address],[address], [place], [address], [facility] 05/31/2022 13:15:14 12/27/2022 text/html 62 year old [...] he self-discontinued his medications. Dhaval Cruz MD [address] [place] [address],[address], [place], [address], [facility] 12/27/2022 13:46:55 05/30/2023 text/html 62 year old [...] some of the history. Dhaval Cruz MD [address] [place] [address],[address], [place], [address], [facility] 05/30/2023 15:53:07
== END 2025-06-28 17:37 | disposition home or self-care (01) ==
LOC: ED 16:51
PROVIDERS: Emergency Provider Family Medicine; PCP Family Medicine
DX: R33.9 Retention of urine, unspecified (principal)
CPT/HCPCS: 51702; 36415; 80053; 81001; 82803; 83605; 83690; 83880; 84484; 85025; 86140; 87086; 93005; 94761; 99284